=== PATIENT | female | born 1995 | race Two or more races ===

== ENCOUNTER 2023-02-14 13:26 | Outpatient (OUT) | payer OTHER, SELFPAY ==
--- NOTE | 2023-02-14 13:50 | US_ITS ---
[address] [address] Patient Name: RACQUEL GRAHAM MRN: [id number] date: 1995 Sex: F Assigned Patient Location: US Current Patient Location: Accession/Order Number: [id number] Exam Date: 02/14/2023 13:55 Report Date: 02/14/2023 14:41 At the request of: RORO YU Procedure: US pelvis transvaginal EXAMINATION: US pelvis transvaginal HISTORY: Polycystic Ovarian Syndrome E28.2, Abnormal Uterine Bleeding COMPARISON: No relevant comparison available. TECHNIQUE: Transabdominal and/or transvaginal sonographic examination was performed as indicated by examination type. FINDINGS: UTERUS: Normal size and appearance. Several nabothian cysts within the cervix. Uterus size: 7.4 x 2.7 x 3.8 cm ENDOMETRIUM: Normal homogeneous appearance. Endometrial thickness: 6 mm RIGHT OVARY: Contains numerous small similar size and peripherally located follicles. Duplex Doppler demonstrates normal waveform and flow; resistive index 0.6. Ovary size: 5.1 x 2.7 x 2.5 cm LEFT OVARY: Contains several small similar size and peripherally located follicles. Duplex Doppler demonstrates normal waveform and flow; resistive index 0.4. Ovary size: 2.8 x 2.7 x 2.8 cm CUL-DE-SAC: Unremarkable. No significant free fluid. BLADDER: Unremarkable. OTHER: None. US/US pelvis transvaginal IMPRESSION: 1. Normal appearance of uterus and endometrium. 2. Appearance of ovaries is consistent with polycystic ovarian syndrome. Electronically authenticated by: KLARISSA JUÁREZ Date: 02/14/2023 14:41
[2023-02-14 13:53] LABS: Basophils Percent Auto 0.4 % (0.2-2.0); Eosinophils Absolute Auto 0.1 10^3/uL (0.0-0.7); Eosinophils Percent Auto 1.5 % (0.9-7.0); Hematocrit 39.9 % (36.0-48.0); Hemoglobin 13.5 g/dL (12.0-16.0); Immature Granulocytes Abs Auto 0.02 10^3/uL (0.00-0.03); Immature Granulocytes Pct Auto 0.2 % (0.0-0.5); Lymphocytes Absolute Auto 2.7 10^3/uL (1.2-3.8); Lymphocytes Percent Auto 28.4 % (20.5-60.0); Mean Corpuscular HGB Conc 33.8 g/dL (29.9-35.2); Mean Corpuscular Hemoglobin 30.1 pg (26.7-34.0); Mean Corpuscular Volume 89.1 fL (81.0-99.0); Mean Platelet Volume 9.1 fL (9.5-13.5); Monocytes Absolute Auto 0.5 10^3/uL (0.3-0.8); Monocytes Percent Auto 5.8 % (1.7-12.0); Neutrophils Percent Auto 63.7 % (43.0-75.0); Platelet Count 319 10^3/uL (150-450); Red Blood Count 4.48 10^6/uL (4.20-5.40); Red Cell Distribution Width 12.9 % (11.0-15.0); White Blood Count 9.4 10^3/uL (4.0-11.0)
[2023-02-14 14:02] LABS: Estimated Average Glucose 105 mg/dL; Glycohemoglobin A1C 5.3 % (4.5-6.2)
[2023-02-14 14:26] LABS: HCG Quantitative <1 mIU/mL; Thyroid Stimulating Hormone 0.985 uIU/mL (0.358-3.740)
[2023-02-15 04:07] LABS: FSH 8.6 mIU/mL (.)
[2023-02-17 12:12] LABS: DHEA, Serum 303 ng/dL (31-701)
== END 2023-02-14 13:27 | disposition home or self-care (01) ==
PROVIDERS: Visit Provider Obstetrics & Gynecology
DX: E28.2 Polycystic ovarian syndrome (principal); N93.9 Abnormal uterine and vaginal bleeding, unspecified
CPT/HCPCS: 36415; 76830; 82626; 82627; 83001; 83002; 83036; 84439; 84443; 84702; 85025

== ENCOUNTER 2023-03-15 15:00 | Outpatient (OUT) | payer OTHER, SELFPAY ==
[2023-03-15 15:22] LABS: Basophils Percent Auto 0.4 % (0.2-2.0); Eosinophils Absolute Auto 0.2 10^3/uL (0.0-0.7); Eosinophils Percent Auto 1.4 % (0.9-7.0); Hematocrit 39.6 % (36.0-48.0); Immature Granulocytes Abs Auto 0.03 10^3/uL (0.00-0.03); Immature Granulocytes Pct Auto 0.3 % (0.0-0.5); Lymphocytes Absolute Auto 3.3 10^3/uL (1.2-3.8); Lymphocytes Percent Auto 32.1 % (20.5-60.0); Mean Corpuscular HGB Conc 32.8 g/dL (29.9-35.2); Mean Corpuscular Hemoglobin 29.5 pg (26.7-34.0); Mean Platelet Volume 9.1 fL (9.5-13.5); Monocytes Absolute Auto 0.6 10^3/uL (0.3-0.8); Monocytes Percent Auto 5.8 % (1.7-12.0); Neutrophils Absolute Auto 6.2 10^3/uL (1.4-6.5); Platelet Count 324 10^3/uL (150-450); Red Cell Distribution Width 12.6 % (11.0-15.0); White Blood Count 10.4 10^3/uL (4.0-11.0)
[2023-03-15 15:33] LABS: Estimated Average Glucose 108 mg/dL; Glycohemoglobin A1C 5.4 % (4.5-6.2)
[2023-03-15 15:53] LABS: Free T4 1.03 ng/dL (0.76-1.46)
[2023-03-15 15:57] LABS: HCG Quantitative <1 mIU/mL; Thyroid Stimulating Hormone 1.258 uIU/mL (0.358-3.740)
[2023-03-16 04:07] LABS: FSH 8.2 mIU/mL (.); Luteinizing Hormone(LH) 28.4 mIU/mL (.)
[2023-03-19 04:06] LABS: DHEA, Serum 340 ng/dL (31-701)
[2023-03-19 14:08] LABS: Anti-Mullerian Hormone (AMH) 16.1 ng/mL (.)
== END 2023-03-15 15:01 | disposition home or self-care (01) ==
LOC: LAB 15:02
PROVIDERS: Visit Provider Obstetrics & Gynecology
DX: E28.2 Polycystic ovarian syndrome (principal); N93.9 Abnormal uterine and vaginal bleeding, unspecified
CPT/HCPCS: 36415; 82397; 82626; 82627; 83001; 83002; 83036; 84439; 84443; 84702; 85025

== ENCOUNTER 2023-04-24 20:02 | Outpatient (REF) | payer OTHER, SELFPAY ==
[2023-04-27 18:07] LABS: Age Gdln ACOG Testing Note (.); IGP, rfx Aptima HPV ASCU Note (.)
== END 2023-04-24 20:03 | disposition home or self-care (01) ==
LOC: LAB 20:02
PROVIDERS: Visit Provider Obstetrics & Gynecology
DX: Z01.419 Encounter for gynecological examination (general) (routine) without abnormal findings (principal)
CPT/HCPCS: G0145

== ENCOUNTER 2023-05-21 16:07 | Outpatient (OUT) | payer SELFPAY ==
--- OUTSIDE RECORDS SUMMARY | 2023-05-21 16:15 | XMS_ITS | CCD ---
Author Name Unknown Address [address] [place] [address] Organization [facility] Care Team Providers Care Sales Trainee Name Role Phone PHYSICIAN, DEFAULT Unavailable Unavailable PHYSICIAN, DEFAULT Unavailable Unavailable SHENDGE, VITHAL Unavailable Unavailable SHENDGE, VITHAL Unavailable Unavailable SELF, REFERRED Unavailable Unavailable SELF, REFERRED Unavailable Unavailable Dave Red Primary Care Physician Medications Current Medications Medication Drug Class(es) Dates Sig (Normalized) Sig (Original) ibuprofen 600 mg oral tablet (2 sources) Nonsteroidal Anti-inflammatory Drug Start: 07-29-2021 take 1 tablet by mouth every six hours ibuprofen 600 mg Tab 600 mg = 1 tab(s), Oral, q6hr, # 10 tab(s), Refills(s) 0, Pharmacy: [facility], 164, cm, 07/20/21 5:00:00 EDT, Height/Length Dosing, 79.7, kg, 07/20/21 5:00:00 EDT, Weight Dosing Start Date: 07/29/21 Status: Ordered Problems Active Problems Problem Classification Problem Date Documented Date Episodic/Chronic Anxiety disorders (2 sources) Generalized anxiety disorder 09-20-2018 Chronic Cancer of cervix (1 source) Carcinoma in situ of uterine cervix; Translations: [Carcinoma in situ of cervix, unspecified] Onset: 07-29-2021 Episodic Mood disorders (2 sources) Major depressive disorder 09-20-2018 Chronic Other endocrine disorders (2 sources) Polycystic ovary Onset: 05-07-2016 06-11-2019 Chronic Other nutritional; endocrine; and metabolic disorders (2 sources) Obesity 12-03-2019 Chronic Residual codes; unclassified (1 source) Past history of procedure; Translations: [Other specified postprocedural states] Onset: 07-29-2021 Episodic Substance-related disorders (2 sources) Smoker 07-19-2021 Chronic Comment on above: Added secondary to d ocumentation in Social History. Unclassified (2 sources) Unknown / UNK(Unknown) Onset: 12-01-2016 Past or Other Problems Problem Classification Problem Date Documented Da te Episodic/Chronic Fracture of upper limb (4 sources) Displaced comminuted fracture of shaft of humerus, left arm, subsequent encounter for fracture with routine healing; Translations: [DISPL COMMNT FX SHAFT OF HUMER, L ARM, 7THD] Onset: 12-01-2016 Episodic Unclassified (2 sources) None (qualifier value) 06-13-2019 Results Test Name Value Interpretation Reference Range Facility Coding Summary.on 11-04-2021 Coding Summary. CD:[id number] G h0bWw+PGhlYWQ+FT9DZFP mT40ssGSopZ5TE4tIDJ8J FBDNPFUNHY6YYX0uxRU5Z LocN1WjlmOa AjpotHDoBC10PQb7ZFG1i XzuHPpsbO4ycMOgE2c6Ur HkPD37aM47WXwhKBAnUwZ 3LjZpbjsgbWFy W6udQpLynVFcKut+PHRhY mxlIHdpZHRoPScxMDAlJy JpuUrzGQ4mHd6vCOJrXHU vbGxhcHNlOiBj f4toRRFtODegUW9daOnyP 3BzpGW8UAEpg3i5Fn45iO I+RMWbNLO8kQufPCxnq25 4SsMwh0roBNB0 lAIyKWbsUGJ4W36pn5O1S SYjURGjWUN5tYA2xK5bmK lpnnusS6PpcQOqHyR0YAX 8nKUjkG5nfHpm jurjxA6nDqf+K08TBM7CR CAJRY3CLlr6S7ToHamvaH I+MD90UFLjBX12fYEnkKM qs1zhqWu6LpRu YPGeDVP0zTxeWRmqf4SdZ DDrT05muGUuz8N2ERVihU gqoSVaNcFlwAV8zB8rANz kvkojm9yslwco Dnkks9gllw84bU62W17kJ BtmWKNqXUA1JQAyAHQsjP sysn4bpR1gTd5+RBovg7b wz8bxnYv7NeXn NQEaqpHjrEolQKG4f1SpG r21J2HnrCqdy8GpAoa7lv 15wYUam8O7iAG1EXupRYH agE5fEDdaXjH0 CORqQnUfpF29fZErZYzqR w3pzQlqmUmbUF1nXACmsw suSLGzcV1iTSHyxTHymVn mOO1pKASathmg g456VcKcRSI6NVZlrEEgI 0ErtH6lMbLkDQVyPIUmD8 DusFImYZvdJ128URzrRiF 9QYNhxaYfZ8Jd HXWaeXobFlQ4p8E1Nz3Pw 7CgqcyuFLT8RBqiNIH8Jv NwBxOrQpH6F9EgFgt2LRF xuUymIH0vP6Uu TDUnfzusgseorAB6AHAsL SYcgK62uBAnCIswSq0zh0 C2d805GNZdUNOqjY06Lf7 udDogMTBwdCBU eR4zlbxse8jkkazoIxVbU TOsMCk2UZq4YWUubInhLt KdBDZ6UbM5LQT8dMXsxE5 clFotcwniqK9z Oyc+H78kqD3kCRW0WQF0u mvaUXLdvdUbMM44OM84D1 RyPjwvdGFibGU+PGRpdiB rzPpfXZ1wLpQt s2jen8JyGEhkE2SfVDNvD EunIys7LUJiYIC5qTB9xQ 3lWTDeGLwrp3M9sIC2T1N tnpUumy8ne1jb NEYtHYadG12nqZPec4G1R ONuyHM6PXXymSicKjCyyI 93Oyc+HDYoaWbqo6MzPtq yf2wrr5qctBs0 OvFdIXVyedAqvUmnSYW8n 0LtDb51B75wWTjgMIMuKK OtSPRuWRShvNfnqt3sxI3 wIi8+PGNvbCB3 pUX7vA1mEORnQlY9FOfpK 984DxKvuDLgGefiv7lsy5 xldLz0FvBvSHRvhfQzaDu xZUO6z1CjMr18 X57tDDphXZAhRHUfMRXoZ UHxkKwqip4yrN3zPr4+PC 1sp5vlag70qA72eLN+PHR aQPB0pBxxWWeb SBWsqJ2tZVfhHxM0GGQeY yVcpA62vYDsNPcdHc1vnR tkgAggTO9cZUCagezqr62 5ZoUzk5mlJEHl pZHtQBxvNFH7N55gi6O0X TDdSSMbTEV9cVY7qT7lgB lnbjogbGVmdDsgdmVydGl nZWzkIZwsE796 IHRvcDsnPlBhdGllbnQgT oQaIZy8V4AnIaa2EKWyjZ xwLY6dqHXeMXeaUo4eoSl ipKquBZ2iMMDo cdjhw754AbMct5vdUICfh UCdUWuxQKZ4D68xx5R5IM ImMLPzYKK5oGS6pI9hvKa nbjogbGVmdDsg ymXnlXkbSLwqZUeaR000I HRvcDsnPkJpcnRoIERhdG Y9GM43SV68gUOlo3O6sZT 4V9AlBLDcrnrn nxjfsFA7KDTiSRPbbX75C p5flGcuVn6bKNHyQQW3SD ResGOrP2VdrK2vMcSeHCM mQWSvS1DodCFr KFpsT266SOtpFlX8KUNzy iPnA6YvMVJifQiaOtN1z5 J3Oi6MJ6C7FN57CN93eGB gn4W0yJZ5Q9Zr LQOyiokghbszuPT8TCPaF XFjpR47Ai7blCuyUq4qXP RuSVT2USRxxLUvU6KprF2 yOiAjMDAwMDAw R6FmkHTnCBgxC967WEwgX mR0CTDljuSlO0YrDIKqtS inGnQ6o4K3Ba1TCFi8PJ5 3KE87mTOeq1C8 iTR6K7HgNKIgoacuivapj HI6MTEzLBSqfQ43Vy7bzY ysNe3lNECsUPK4EXQyvJA kZ5HbhH5bXgGb ROCgULReQ1ZltOYhVSacO 422AQpwUiI0DNFkazIlO4 UwQXQutEzzGuA8h7H8Ym4 FMSPgTW29RFC9 yKI3AY38DH38H9EtJqyoh GFibGU+PHRhYmxlIHdpZH RoPScxMDAlJyBzdHlsZT0 tPh3vJBDqHUTx oMinlYFhEzCpe0rgXBHfO SfxPR9pyZdmV0RcbXF9TR Elg9i7Pp79I34bI5JlyQK +CZXyyUI5mON2 mR9aKfLvIyI6SPjwR009B fPzlETeYfqvy5sfs9ewiM s8ApM3DPUwmkTlgJcaPDJ 2s0EpOl43G11q IHdpZHRoPSIxNSUiIHZhb Bqygw4daQ4iGu5+PGNvbC H8cFQ4pO7cAjUkWvC5IQn aI969ImLdhXVt Bppip6wpz2ihqRl6IxTsG IJuoqQhtRwzGZV5q0DhFe 01K5ZjmCthw8OfIew1bz4 2bYSaq3F4vUG7 N7TgXWGxvuozcIDnlJkwD Z5pDZDzjxewXNGwoC2iTB FqZ9e8FfUkJvU3FZpcV4P zeaC2NMIslCYb AHocCVP2L10gk2B8QDVuW EXnIBE0pDJ8eY8hdWmbqq ogbGVmdDsgdmVydGljYWw uUJvqF841AJWt vLbvXAFsxP4gHVKyaDLbi NtwRR0wKAWftvsqDifWZY 0HFjnkKBKRDF7qJCzcyKH +BSLpHUE8zGnz PBkfPTVvuY9mJNWnD1v4R vJiTgS5IRsvC6VjJTUnup sbKh21kG6xKkNpRkE4KIm zS1FvmsM3OVPq eSWcWKmvQHR6F75iy0V7X ZTlKUSyETA3kTI5cT2bvX lnbjogbGVmdDsgdmVydGl vKBdvZHtrI713 TCNkjXtpVkM7LvOeGfX5H VA4M6FnIxz1HTVowOqdYF 9ieNIdUZjjPp4sbNgiiIn uAK0uRLMacgly WRHnbW8jSIGwmHArdMxuQ Z8jMSEhkweew066LdDiDM B1NAQecKPdC9XjhD0tLcZ mUCWsHBKfP9Xw gZQsZUqyA460DRoqBwU5D UGurkZsO3PsUEIcwXjlJu O9p9S8Bn6tKhHUNUFcvgr vdGQ+PHRkIHN0 eCvzUNlzEGPlaP3iGZKhM 6m5CxPpPrS3UGbwW9SsOW PffzbzZt18nE0mZpNbOeB 6XCkjL3IjgwO8 UIKibPPhTIjzMVT0N53os 1Y6ZKIzNIFoILE4cHZ9tN 1hbGlnbjogbGVmdDsgdmV ydGljYWwtYWxp L672SGUacKnuZtEyeZUuJ TwvdGQ+OFVpEMM0nQomMG hiJLNubG1eRHIiO2x4RrZ vUtR9EIwnC5Es KWHyvdopEf14kX3dNeBkY oO1KPntR6FoowD7ZZZqaL DdOJbqGHJ1B25bl2J6HMZ vMASyKEJ5vNT4 fC9bdUdrsextzKUjcOqyn tMqfVtbWCgpFEwsH841EM LkgLceQk37fBTngXdpchY 9D3UaFrmumJV+ NC75GKIlQT04lALcfRFuh 6xtkVf0AgVoXVDoWVL5pU gtBHcgd0EoSFLcW34eaJZ ig3K8NRJqtJng aQHfUlCheXH5gW4hBRkil lcpa8qxlxkoXtasm5jntc 01hV09F96bZUiqACYdOAP zMCUiIHZhbGln nf0cbF4tNq1+FAMphCK0q JJ3yV8eEgQtTuC7KJxfC2 76NzBddKTxEwzfh4orp4n sjIg3JaFzMGEr ioYfrOjpVVP2o0LmOs79Y 29sIHdpZHRoPSIyMCUiIH KapAroof3asH1qVd3+PC9 fx4zlhm24qB85 dHI+XYSuMAQ5zIhxHUrjT HKdsS3pNTriPiD2IBVjGf MzuO83zFMuNFgrCs9iyKj krAvqLL4dRQRq ubwry610LtWjj4bqHARrp BSiIOzbVFS8H89ga0G2UA IzTMItAIP7yIZ2fQ1zbLl nbjogbGVmdDsg mjJrdYliDAyoLCfsQ726J OYmzApzSzOxjCWgD7foho ZNVG5gAoaycLL+PHRkIHN 0eWxlPSdwYWRk gF8wDFMtM5o5JxQvIvU6G WqtR4YsirK9EGYrqIUmVC AypVLNfF3ddkgya0wtukx gIzAwMDAwMDt0 PXo4UNAsxFjpCuZbITH6U vY0XFF6tCNceP1blCickh rpeI2fFvz+RklOOjwvdGQ +KIEoAMG6uKvc EJmePTQkoM2kLPXlA1t0B jUtFpC5LHsxG6AvbeD3GE CybVMpFTPleZVYjY6pusf lm0mwcftvTkLg LXAnVVs0AMy2PEHllDmpM wIzZPV7YvE6SEK3dYLpkF 8hzFvaxsntmM2fMmr+TVJ OOjwvdGQ+PHRk RBU7tKiqLEgtFICdsY3oX KZkC9j4RyLeAxJ5CHsbW0 HsnyY9TBGklWCrQCHtyLR NiI1libmag1ru ctqrTqUhBMQbMCx1TLt6C QPyfXuqGuBjCHI7MkJ8TV H3jJNidO8yvKdhtzihqH0 wOyc+NEV8FMH7 EP14TQ51T6TsOsrjhSWxa +PHRhYmxlIHdpZHRoPS ulQKSeWzTsePdpYZ3kKl5 yZGVyLWNvbGxh cHNl (more content not included)... Normal [facility] Coding Summary.on 09-29-2021 Coding Summary. CD:[id number]:8262336P G h0bWw+PGhlYWQ+OI4INJI cU71zeXVorE5XB1eOMI2D NCIQRWAGBX0CLX4yhFR1F MnoP2IiafSb ZgoqpJMaXZ33XGg3OLJ1w GweASvkoC8peRHsZ8f1Jm NuVT17pZ01MQskDBMsZqE 3LjZpbjsgbWFy P1hzTcRmvFVlMpz+PHRhY mxlIHdpZHRoPScxMDAlJy ZyxBhgQT1rLy9iTDDeNKX vbGxhcHNlOiBj f1izCCTsIAyuYQ6eiZpcT 9EwvSF8OHHuw1n9Vz36qL I+FARcAUU5lBxwNWlpo07 7SaOkh2xrXZF8 eVLiDOxfWKM1B24ov7E1P VAqBJRuKIH7sDO6tN9uxX tqthpjI3PmqQUpBjU3GKK 2iTWybI7gbNdk iqnohO5iWad+X96KSA0VN UTNSL3KFxy1M9BnNijicJ I+UP51KANoJG92wRAovGP aj8whgOw2IwPl NJIzVJA4oTaiRKouq9FzA LBcQ59kdKRoj2T9CQLstU qgqNPjFyIsrRL5sT5lBKk diikuo1ixtgyl Cfxst2hvgt17zY50C54mA JvbCQBwUEL6AQNaCCWfvG dbdu9ybS2aFa0+ELtyc2g kz7ujwXb7OrHi MNWuibOqeFnzMPO5a3TeP b27Y6NucTzkf8LqLgy1wp 14xGYdz0X0kUL7SIyoMJI myY8pBBtlTiQ7 XVGdClSfgX14hLAvTAazD k9ceKckcNklXF4vECJkkg tfFOAmpE8tAZFurKHpvEu xEQ4yOIUmabck k177GjPyTFP7WEBbtXMlZ 1LpnX3qMgOwSERzZGLhI5 UfkQJnTTrmE334CPisKoX 2EBDqwtAjF4Zs WUMmcQvvCzK5x3C9Yi7Ut 4CewdejDZN2LWfyUUI6Fi M7KwZwBiG4P6IsVxb8DDL nrQiuBB9mL8Tu ITEwmizzqiixnTX4USBiD SIyoS87fSBwEYnzOh8pq2 K5q379EADdXOEgsG87Dw4 udDogMTBwdCBU hV6fuxrdx9odtebvOxDeS ICoLWw9UNp8HXQaeKyyOb ZaRQC8SbU8SKJ6vCBdzW8 afWobqnlosE4x Oyc+R68ywD2fMUD7RSP8t jidHLFzuoOjPI72AT90N3 RyPjwvdGFibGU+PGRpdiB qpUesXS0bEvDo p9axy0NzPMzzZ7JwPUAkS IhcWjn8SWOoJLG9gIM7eV 6eUMNgQIljk7M4eYQ0D7Y xmvObkv4hr4vt MKQuJIhbM15qaGKqv4P7S XSxwKV2FAVbeLhxFsUifD 93Oyc+GKVtqIhoa4YmJkx gv4wod4pafDx3 XnYoZZSglpPagYtaVVP6h 3UpMg75S24wYPohYIPgWP LySQRlSDKqiWoksf9xpO3 wIi8+PGNvbCB3 nCI0eX4rKONoGoF0JVaeV 843TfUeaIJaZmrrw1mox2 oucTx7OaOoEGNzloXhpMo pEMU9r6QhTk54 B44qOJkdZSBjMAOeCVUjX WDwuXfwur5ysO0nFj8+PC 3mp2enor88mW31mHF+PHR wCMM9eMtaYCga UEHwxS3bKSizQtK9YTTiO tGeyL51mILoNHweIg5ktX uweUuxGT3hPQBfhuhcv36 8GqKbk1xuYCPn zGUoGSgfDCJ8U43wb6F5R XGgRDZcRRW4gZG8jS2wpQ lnbjogbGVmdDsgdmVydGl dQTqhBGdmB798 IHRvcDsnPlBhdGllbnQgT jOlWIh1Z7MuBcq9LCYpkF slUX1ibGJzLZsvCj1xeGa caIeaNX3vTCZn xhyuo206QmHnb9xrVIXob DWgDLsfWDC3C54am1G1KA EaPUMdHBG6kUD4iC6wxTp nbjogbGVmdDsg naTprLmhWFktSGbwK853V HRvcDsnPkJpcnRoIERhdG Z7AM98HA85lFErv1Q3vMS 1X8VkFZWnbqor wbpowVA4AXVqEADvfR51E v7cbHzcBw8uJIKnCTU0TG IahAWvQ8UykQ9iTcBwLJV tLIPnQ9ZedDOi VOpqX070QQlhEfY0DPUxi qPyZ7CgUMWkwRdrTbD8y9 U1Yf3OG9U9OH60DO41oOD rh4O7eRA0V4Dr QKAsdzrvpxwowKC9UBIeG ISojH74Ab6ipRlbAk0mOJ CxKVT2JNTmhZLrV3HnnG5 yOiAjMDAwMDAw O1SmmLEjJIscP058FJteD pP7RBVskmIeZ5IiCCAaaH rqUoC5y4D6Mo7EQRu5MV6 9IQ86hNKtr9Q8 fZI6D8WlQJOlqmrcjagrx IA7LYLoMVRlbH92Ul1jpQ nqXw2fSTVwTFU8VRDauNE vM9VkzN9sYuNb FVEwFOPhK6GpxCIgLRodX 127RNurFxK1PPCwcbMtS4 OeSKGslGahXzL1h9L8Di8 TCSVlAB27AMM0 vJE2KG70JO34T9PfDkgsc GFibGU+PHRhYmxlIHdpZH RoPScxMDAlJyBzdHlsZT0 vJu4wMIIqLMBq dWyotCYiTgXbs3haKHQvO TheOP6ehFriI0GmwEK6DZ Xmm4j0Yc56G41bC9MpvNT +YDUvoJO3zPA3 fN2vIjNvGlS2FWjrI239L tAnvZBtLwofi3vlr4htfU w1OuV2XXVdxbQqsCxsSRY 8p1SvGw73L85e IHdpZHRoPSIxNSUiIHZhb Piwci2srV7qCj0+PGNvbC O5cXK0zV4pAlSrOuZ0XIm vO310ReYilAQb Npnkt9kst2ejsPo1QtGlS BTdoxJoaSdtXQL8z5NpSd 40Y8VezPyao1ZfGps1qe1 1fXYtd5X5oKS0 G9EkWVMrdtulyOJcsDssD A1hOCSkopbvZSArkW4yDA VbE5r9RoLzOnY7SErtC4A qjuM8JMRtaNKy YJpcAWP2G98qt2E2ILSrP KYlYEJ6hXU7fT8fkRxanl ogbGVmdDsgdmVydGljYWw vOSvuL195OWEa eCanLXZvdV2nHYTdkKMqb DpnKC8mJWTrkxagGstUJZ 0PNhthBUWJGO2xACxeiEB +JPKjPUC4wBhm TGryMHAcnP1rVFYyY6n9V rSmRsI6ZFguH7ZmLVZnyr klAf93kB5qTaZpXkT3COo qA1IgjlX4SHOh vZNvCKtcCWY4I56xp2P8A BEeAJWwCJZ0jHM7zD5zeB lnbjogbGVmdDsgdmVydGl pAFovSXqjD769 PDVmnKknZyZ8GlLzNqJ3P PA7F7KaOxh9FQKsqIbvSG 9puYMwYYgmVy3vpTfulEt kTJ7oOHQqzetj IUQsgO7gTPAbuJExgQznD T1vDTLqerudl866OxVyZB M7BRZesCSpG1WbbV1iQqS cJBXsLQIuC4En uYKcPIqpK189JOvxEmV5S OFjeuDkQ8FcMLFuyNmyVg S7f1T0Xe7tQmZPPSSgfvc vdGQ+PHRkIHN0 zTluJBddVLHqyN3oVDMcW 9z2NeNtVjJ1ZAfvR4RhID YelsfmDz41oJ4kThIkSnX 3EEkzX3OyjwP7 USPykAHqUZrhMRF0D93vv 8U3BUOeNBGxKJV9aJU9eP 1hbGlnbjogbGVmdDsgdmV ydGljYWwtYWxp R238BMRgsUqhUbOwsKWjA TwvdGQ+FRYwDBK6pDjkYN bsCLCibS9zBVIxF0a6PhE zToB7IXukQ2Ft IDIviukcHb12dN4iQjFkF kP1EMdcE8SdduH3JNLwxY PqRPexZQZ3U71rp2Q8XMS hYNGyOVJ4mMN3 bA5gqZrabiiceBAncFtyc rOqnWrwCXuxLLrjY737FL GwwPhdUgyuXhBEqw1rNO8 mZjwvdGQ+PC90 km99V9ItQhiwHtg1XTHbL RM3qIQ1dR1dSZSmWPhqj1 P0pVM6F2WahgTung4ya4m sNULqFClyG86f iGSug0P0XNLwaPY5RMZqc GksQpLdmG53Oqf+PGNvbG uxi8GwYpmmk0kgl4mkdSy 9IjMwJSIgdmFs tFhjZWQ3r9YaFg97R99nX HdpZHRoPSIzMCUiIHZhbG oedf7ljG1vPf3+PGNvbCB 2dCF9rL6yCnAq LxX5SHsqS359KdIsuPGoH ygll1ssk2bigLu1NxHkDO LvycEujTrdZHX6p1ThGt3 4A3QfoSxsj3Tv Fds3aw36vUPps7E4hCF8J 3BhZGRpbmctbGVmdDogMC 3lZHHarqqlNSKdeT8cUPZ fO5k6ZlXmGrR7 DDhkF7IbykZ2FMBnzKEeN YHajAIZqP8xwixvu7ycqa sqEtAfWQVvUFy5SVb2KYB saWduOiBsZWZ0 XlU7SUB8lVLawS7xdSdik noatF5kSsz+FSg4p0dczW JyHH1iiOC4YB05FH26kGZ kf9J1pKJ0I4Oa MGOzktlxyqmoxUV5YHXlA MVcwX54Tt5gvBktUb5tFC ZcEHW0JZZerAHkK0MxeO3 yOiAjMDAwMDAw M5GeaAJpHXefQ487OYqeW oH5UMRpcaPsI8KhBTAnxD btOkZ6y6C5Aa8LWB84XA7 5JM61iXKqb9U1 qQZ2X8MhMBKgehglizrql BJ8XPSaSJXnjZ14Eb0irO haAd7yBBYsNSD3MFZmuQB zI8VvlE6wYfIb NVThVEIvY0MtrYXrWGpxL 441FEuoHiW6LSNrivHuQ6 WqSYHikAohFvV9l6L1Lk5 OPh49ZN91YG36 qXWho4U5pIY6J8CvPRUfl lalspqtrEP4NGBxOMLzvS 08Rg3qxKamPi5qQDNlRUX 5AMBvvRLcP4Ft rE5uNqLkEIOjGQQqF9Nxq AOsNGdbX612MXbpKuN1HK BokoGdR7AdSPCbnZymGmN 4o8T8Zo7BVTei cri4N2SbBetcyGN+PC90Y JMzBP13rYOmqNQrp3mjvN b1RvSrDJOsHNC7xHyeFKp dk3AkYKOaO19x bGFw (more content not included)... Normal [facility] Vaginitis/Vaginosis, DNA Pro beon 09-25-2021 Alissa sp rRNA Probe Ql (Vag fld) Positive Abnormal Negative [facility] Comment on above: Performed By: #### 3 [id number] ####[facility] [id number] [place] [address] G. vaginalis rRNA Probe Ql (Genital specimen) Negative Invalid Interpretation Code Negative [facility] Comment on above: Performed By: #### 3 [id number] ####[facility] [address] [place] [address] T. vaginalis rRNA Probe Ql (Genital specimen) Negative Invalid Interpretation Code Negative [facility] Comment on above: Result Comment: Perf ormed at: [facility] [address] [place], [place] [id number] PhD Cee Barahona Performed By: #### 3 [id number] ####[facility] [address] [facility] [place] [address] Physician Orderon 09-21-2021 Physician Order [id number]# 1.00CD:127 Normal [facility] Physician Orderon 08-10-2021 Physician Order [id number]# 1.00CD:127 Normal [facility] Coding Summary.on 08-03-2021 Coding Summary. CD:[id number] G h0bWw+PGhlYWQ+VA2SESL aY11mnBZwyR8IX0cYJC8J AFLPXEJZME1CER0szFD3Y SfgR0CfyuEe YyilwFDtCD66UTw0FJG2f EtcNTvpgL2uaXNcB0k6En JyUX22jM90YByxCGUxNrI 3LjZpbjsgbWFy V7vcKdMdkVLpLlp+PHRhY mxlIHdpZHRoPScxMDAlJy MdqHqpKM2yRv0xKFCeKYY vbGxhcHNlOiBj o0xcWQSaOFpvZP5vdOldM 9VpcNL7CUTmb0i0Ty47zD I+MMFgZVN1xLchQOasb93 3LlCvq6vsIUE3 lKPgAUtyCBE1X37pp1W8Y KVoQTLxQSJ6gEL6mN9yzO kvuaylS7WxxUCqXyS6OGL 4eHWfaY3rfLgd kzepuC9oVse+M39VJJ8WI PVZTO3NZox7S0FhIqdiqX I+PS48QQDkZQ59kJTgwFO vi9hbfZk5ZvGu XRThCPL3bJipNHiiv8WiL TNvI42taSLyl5C6TXYydW uyvBFbZfYqoLZ9fQ7sZDf ofjzbr1fgzpzc Bjdyr0rkps38vV86Q95tW RitILZtXOA0ADYbLMDrrS mjcr6kkM5tIf5+QQwnd2w uv2euxFm7EaJy HITcatGuuUefUHJ0q4GaF m42D5QrmCozw6FyObt0ek 09zSGwg6Y7fRP8VItzZDH pnE9xAGuqEiR2 GQYzBwPpoA25dSXjOYnyE y7pzUskeMjyPN3xPKRpfu vvBEWrvI1oHAGclOPlwNf lNU5eNEYnrddy f858QnUsAIO6UDGmxOHmE 6SzdD8eCnQjCFOcYWAsN6 VlrEJrITorI025QQujKlL 9RFTmhgArZ3Ag PTSmdVnkOcJ9r0S8Xu2Rf 9BoksczAOD6BRlhBHJlQt EhNeMgLiR4R6IqEkj6BOB uiJzqUZ2xS2Fu ONZmoblguwxpgGF0VLKyR JLgzT52eAEuWUiwSj2hd6 H0x073RJJdZEMtdA44Ey0 udDogMTBwdCBU tB5ubwbxp4wkwajpInNzS FYqRJz4HXr4JQPbdRklWe NnOZF3QnV8ZEQ1dOIojO9 txBkaepjpyE8a Oyc+K07kwH8aCFE7VGF8q ttpPJYvdaYcIO01VA59Q9 RyPjwvdGFibGU+PGRpdiB qnPlmKK3dWoAi f6jov0YvWSxgD8KaMOXwJ DnvVty4QYXvIHM7yZM5cD 8rHHKvRTkxj5V3hQK0E9H mvvCapd2vo2vl IZVeMEdjC89hgLFpz6R4V BPmiTF3AILupBorIfPztZ 93Oyc+SUPoyPjiv1BsHxa mb9bva5abqPm5 SdIlBSFztyAtjKrrEFU6c 5LyKd11U02vBUzrUGWqHR FlPYHtHOBsvYifbe6tsF5 wIi8+PGNvbCB3 hYT3mI6oCHMgBtA7CQrzA 840OiHmsEDdOljbs6tfu0 segAc1GyAhDYHtsgSzvQe iPTT2r3CuEz35 R56bOBnwYBJkSNKtDLKoB TWlcXybqr5wuN0yCk9+PC 5il0xwof83qH00aWK+PHR iLQB1mTxfZRpq UQOozQ0jSKleLoI9MHOiS jQubV94gPMySLbjZl7zoL hwyEkcBS6rMGNjajvqq17 7VvPzb7ovQTFb gZPwPTpzRCO3J49wx7I1X NYfXXKyBBD8mLS3yY7ggK lnbjogbGVmdDsgdmVydGl oMQhuVZepV078 IHRvcDsnPlBhdGllbnQgT kEaXXn4A6NeCcz4IVSmbS kgUT5qdXHeVSxjBr7dvWj xuLkkED2yDYMv tegwx418QfKvw7atMPXzp DYuPDvfLEW0V24hl4M9XD ExEOMwBSV3oYR2vJ0gvWa nbjogbGVmdDsg bjBolNlcDCqdSUtaE092Q HRvcDsnPkJpcnRoIERhdG F0GQ29CR99eLGhz7C5dHM 1K2YwQFVfrati hstrrJZ0ZQJbWMKudL93R a0gkAhrAl0cOYGwTHD8IJ TowNMbE7EjcK7tOcNwDNT tCOEcJ2KwjYWv OLfmJ339RTzlQsI8CKUyx iKoK4AmLKQoeYnlCsS1p4 E2Xm7QR7K5FE77TR12yZF sb7C6aWC6P1Hk GERhnujzlowoaRK2KCBvT OJlxQ85Yp2hvGzmHb8gJT XwTWC8TSPhyQMlG9FmpU1 yOiAjMDAwMDAw E8XqxSQyZYuxI148MGwuW uR0SUAptqStM8DxOCNcpF oyPqV7o2F4Kf7WMTc7EF5 9QH52pIVti1B2 aYT3U2PgQIGektlyguion OU6EBKaGDXvrZ03Ox8ltJ loWq6jJTPaSOA3HNHqyLM oH2JqoF7sNkGm FGXlQRHyF7DzvPHxQRgaO 472EEflVsZ8LCSncoRcV7 ReMNLepCasImB3i4U5Ay0 UKLPzQY25RSZ4 zIB1CK96CR39W7LnZrpdm GFibGU+PHRhYmxlIHdpZH RoPScxMDAlJyBzdHlsZT0 aWo7rYGEfPPRk uFawwLFuEpEri3spDPTaR KqsWG3nsWfyZ9JhhDX1SX Pjq1s8Wj80C81aQ5TmwHI +VWUqjZX5zHD0 hH1dIeIbIqH8PPuuH200K xJhpHZoMghlc5hzv1nwwL r3NxV2QDFyedEddIilHRK 4a3TfJa55H24c IHdpZHRoPSIxNSUiIHZhb Hxbpi8eiC3iMb6+PGNvbC M9hGP6oX8jGxBpBeR0IYt jM522ZiTekFPr Dtitz8klb2armFo1FiJwJ HAlrdTrkOepRFF3a0EjKc 53C6FhuAeii5RpEak0yj2 3gPHha3A6qMC2 K1DhLXTrskdjrWOoyMptR N8gBIDjjshgZCXehU7cTA OdP0d7CoNmNgE3FWkaX2Q sdyT9MKMgaSAw TTxmKFT8N17sx6Z6XBFwH LMtLSJ7iDT5hS4fsWvuyq ogbGVmdDsgdmVydGljYWw yNKfbU413ADBk eVnjIWNqsK7pFAQfuZHsg EwwHV7wPCTfbnpiTafRMQ 0JDvoeNALGKD9hCVpmdYO +KVMoZSW1bCzy JRgoDZInqB1aVGIuV9f8Z vZbYcZ6TIpyX6UpMUGwxh beYy69uN9oLyBfZeE6AHp uT3DlwbV8WYHk vEFsZJtxVLT0K47ee9K1X GMeRKUrLBZ3iIQ5hV3gwA lnbjogbGVmdDsgdmVydGl ySGofEVaoR193 AMYrbIqdVlS6BmQhWlN5Y JE0S8UtQqt0VQRksByxOF 6vpAMoAXfgHu3hxRwrmKb aRE6qKBRexpuz ERVcbV7xFOMghGOohNdpT O5rMBPaxbycj646GdEyEE T2RRCvyNTpF5HfcE0lGfL wUTAgAEDcI0Xu tIVyBGtwC806CAwfRtS1U VNkqoLpR6IdJKRmxKajBc Q3n2P7Me1sLkRRKKIkjgl vdGQ+PHRkIHN0 bYvkOPvtURJywM3sSPQtQ 8m3DeRnBeP4ODljD9QcKU FuojsmEw14hP4yOrZdPsQ 5PXdhQ8WsycX2 SQEozWQqBCqlLWM3R61rn 7E2TYIrFEOiJZB9uME5aE 1hbGlnbjogbGVmdDsgdmV ydGljYWwtYWxp Q022QAVzrUcvIvWtpWYyZ TwvdGQ+CVHgKRO9eFckTM bcWBSheG9qHIByY1h6BeM bRhK0VPpoX5Qp MERctqfvKo64aN2nSkYfH dH9BHmsQ5VjeuF3TIPkcJ QaOVddJDN4M23fq2N7NKK xGYSwIHO5iWB5 zL0otXijvakarHSezNjqo cTlsLvbARzvRVmqZ242IX RvcDsnPkFtYnVsYXRvcnk fV9SoBHDPOMar Q0JpJ2XnpWqfyKO+PC90c n94O6ChEpmoOeo1CDKiIP K8gOC4nE4mNVVoVJiln2T 5hBB8T0IseiVb ij3ut0joUZNbKIdkI33ht BNaz9G9XVSogOA0GEHuyH agEmEazJ72Gmk+PGNvbGd cx4ExRcghf2oq t7jcgSd7GyVnEGIwyaLvf IwwPSZ5h2UxXq04H14rZW dpZHRoPSIzMCUiIHZhbGl ngr0ljZ1bJx6+ URBgrIO9sUU2pL2bXeAfR gJ2JGukA952KtAvvIEiXw hiq0kmb1qboWv5FeIiGGK gdmFsaWduPSJ0 m6QpTj62N3OzgQwnp2CsY dh0xz69bFWyb1I6sHW9P7 BhZGRpbmctbGVmdDogMC4 yMDBpbjtwYWRk nX2nDVSyH4w9JbIcYwE0E ZzmD4JjqiG1HPLtoCLhNP LgbHACcP2nkntkf4yowcp gIzAwMDAwMDt0 ZKc5OMAgxKszRcTeJUY1H nG7PRR8dSGtjD3lkVmdpv oxvO1tLwe+VGo7m5rccDT uCN1jvZS1OV88 KH29vLLni0X8hDH0L2VsT EWbbtypqpvgxHF5ZVMqUF GvaA68Dc8reReeYv1fVXU eCUT9DUXaaHCw T2BzyC1lZxEhNLZwLRPtW 6IdfIDvKYcjK978NMvfBq I6JWXkyrUyR8MmXLJneQt nDvJ9p3P7Qg0E QB87TK79LM06qDGci6L1t MH9R5ApRGRcspqcxpidpU E2WNKgJTGtvM81Hm6ehHb cVp9fJYVlNRP9 PQXahBLnW1CumZ9mCjUrK WXcFPAgI0QvqTTyFYhjB1 85XPpkQgA5XBJgruSrD0K sLWFsaWduOiB0 o8T3Hn6EAy74EH53YB49b WIdn3T0xMK7H9HuHGWzpq bvgfksxZS4JVSbPABxdD5 2Tf8sxHgmRe0h MDBdUER3NJGtjNYeF9Ssy F6xLcEkWYBeDVTzL3KwdL OhJOndM341EDzcDeU3VCX tlhIoX5PtCBGr eCllVoX8o6I0Rz1OVOsnl xy0M6YpFzfbdVK+PC90YW MxIT43zRRukXCsd1qtnUv 3TvCgXBQmGPO6 eWxl (more content not included)... [facility] IntraOperative Documentson 0 08-03-2021 IntraOperative Documents [id number]# 1.00CD:127 [facility] Consent for Anesthesiaon Consent for Anesthesia [id number]# 1.00CD:127 [facility] Discharge Instructionson Discharge Instructions [id number]# 1.00CD:127 [facility] IntraOperative Documentson 0 08-01-2021 IntraOperative Documents [id number]# 1.00CD:127 [facility] IntraOperative Documents [id number]# 1.00CD:127 [facility] Main OR Intraoperative Recor don 08-01-2021 Main OR Intraoperative Record IntraOp Document Type FT Summary Primary Physician: Mark Moffett MD Finalized Date/Time: 08/01/21 13:31:49 Pt. Name: RACQUEL VAZQUEZ Louie Felton./Sex: 1995 Female Med Rec #: [id number] Physician: Mark Moffett MD Financial #: [id number] Pt. Type: A Room/Bed: [place] [address] Admit/Disch: 07/29/21 14:15:55 - 07/29/21 18:50:00 Institution: Case Times FT Entry 1 Patient Times In Room 07/29/21 16:37:00 Out Room 07/29/21 17:16:00 Procedure Times Start 07/29/21 16:56:00 Stop 07/29/21 17:09:00 Anesthesia Times Start 07/29/21 16:37:00 Stop 07/29/21 17:16:00 Last Modified By: Abdifatah RN, Apolinar Ruby 07/29/21 17:16:06 General Comments: 08/01/21 Chart opened to review and send charges [facility] CSFA Case Attendance FT Entry 1 Entry 2 Entry 3 Case Attendee Kamran FAMILY PRACTICE DOCTOR, Gurdeep Moffett MD, Mark Cage CST, Stephanie Palma Role Performed FAMILY PRACTICE DOCTOR Surgeon - Primary Scrub - Primary Time In 07/29/21 16:37:00 07/29/21 16:37:00 07/29/21 16:37:00 Time Out 07/29/21 17:16:00 07/29/21 17:16:00 07/29/21 16:50:00 Procedure CERVICAL CONE/LEEP CERVICAL CONE/LEEP CERVICAL CONE/LEEP BIOPSY(.) BIOPSY(.) BIOPSY(.) Comments dr sigala supervising Last Modified By: Abdifatah RN, Apolinar Gardiner RN, Apolinar Gardiner RN, Apolinar Ruby 07/29/21 17:22:36 07/29/21 17:22:36 07/29/21 17:24:52 Entry 4 Entry 5 Case Attendee Abdifatah RN, Apolinar West CST, Venkatesh Villavicencio Role Performed Stevedoring Superintendent - Primary Scrub - Relief Time In 07/29/21 16:37:00 07/29/21 16:50:00 Time Out 07/29/21 17:16:00 07/29/21 17:16:00 Procedure CERVICAL CONE/LEEP CERVICAL CONE/LEEP BIOPSY(.) BIOPSY(.) Comments Last Modified By: Abdifatah BENTON, Apolinar Gardiner RN, Apolinar Ruby 07/29/21 17:22:36 07/29/21 17:22:36 Perioperative Protocols FT Pre-Care Text: Implements protective measures prior to operative or invasive procedure, confirms identity before the operative or invasive procedure, verifies operative procedure, surgical site, and laterality Entry 1 Procedure(s) CERVICAL CONE/LEEP Patient Identity Birthday, ID Band BIOPSY(.) Verified (select at Check, Patient least 2): Participation Consents / H and P Anesthesia Consent, Operative Site N/A Verified HandP, Surgery/Procedure Marking Verified Consent Surgical Site Yes Laterality Verified n/a Verified Procedure Verified Yes Correct Patient Yes Position Verified Availability Equipment, Medication Prep Dry n/a Verified (If Applicable) PreOp Antibiotic No Time Out Gurdeep Andrew CRNA, Given Participants Zuhair BRANDT, Mark Rosen, Niles VAUGHN, Stephanie Palma, Abdifatah BENTON, Apolinar Ruby, Brett VAUGHN, Venkatesh Villavicencio Time Out Complete 07/29/21 16:53:00 Outcomes Met? Yes Last Modified By: Abdifatah BENTON, Apolinar Ruby 07/29/21 16:58:56 Post-Care Text: The patient is free from signs and symptoms of injury caused by extraneous objects Allergy Information FT Pre-Care Text: Verifies allergies Entry 1 Allergies Reviewed? Yes Allergies Reviewed Self/Patient With Outcomes Met? Yes Last Modified By: Tamara Red RN 07/29/21 15:31:37 Post-Care Text: The patient received appropriate medication(s) safely administered during the perioperative period Surgical Procedures FT Entry 1 Procedure Description Procedure CERVICAL CONE/LEEP Modifiers . BIOPSY Surgeon Description LEAP CONE EXCISION AND ENDO CERVICAL CURETTAGE Primary Procedure Yes Primary Surgeon Mark Moffett MD Start 07/29/21 16:56:00 Stop 07/29/21 17:09:00 Anesthesia Type General Surgical Service Obstetric Gynecology Wound Class 2 - Clean-Contaminated Last Modified By: Apolinar Gardiner RN 07/29/21 17:22:48 General Case Data FT Pre-Care Text: Classifies surgical wound, implements aseptic technique, initiates traffic control Entry 1 Case Information OR OR 6 FT Case Level Level 2 Wound Class 2 - Clean-Contaminated Specialty Obstetric Gynecology ASA Class 2 Preop Diagnosis CERVICAL DYSPLASIA Postop Same As Preop Yes Postop Diagnosis CERVICAL DYSPLASIA Outcomes Met? Yes Last Modified By: Apolinar Gardiner RN 07/29/21 16:59:20 Post-Care Text: The patient is free from signs and symptoms of infection Skin Assessment (Pre Procedure) FT Pre-Care Text: Implements protective measures to prevent skin/ tissue injury due to thermal or mechanical sources Evaluates for signs and symptoms of physical injury to skin and tissue Entry 1 Skin Integrity Intact, Reserve, Warm, and Skin Abnormality No Dry Outcomes Met? Yes Last Modified By: Apolinar Gardiner RN 07/29/21 16:59:30 Post-Care Text: The patient is free from signs and symptoms of injury caused by extraneous objects Patient Positioning FT Pre-Care Text: Identifies physical alterations that require additional precautions for procedure-specific positioning, verifies presence of prosthetics or corrective devices, positions the patient, evaluates the patient for signs and symptoms of injury as a result of positioning Entry 1 P (more content not included)... [facility] Preoperative Documentson Preoperative Documents [id number]# 1.00CD:127 [facility] Operative Reporton Operative Report SURGERY DATE: 07/29/2021 PREOPERATIVE DIAGNOSIS: Severe cervical dysplasia POSTOPERATIVE DIAGNOSIS: Severe cervical dysplasia OPERATION: Loop Electrosurgical Excision Procedure Cone Excision of the cervix and endocervix curettage ANESTHESIA: General ANESTHESIOLOGIST: Leonel Sigala M.D. PREOPERATIVE HISTORY: The patient is a 25-year-old white female who presented to my office for colposcopy. She underwent colposcopic directed biopsy which revealed moderate to severe dysplasia with a negative endocervical curettage. After discussion of alternatives of care the patient elected to proceed with Loop Electrosurgical Excision Procedure Cone, excision of the cervix, and endocervical curettage. We discussed the risks involved including bleeding, infection, injury to internal organs, possible creation of incompetent cervix which was explained to the patient at length. All these things she understood, accepted, appropriately signed consent forms, and made ready for the Operative Suite. PROCEDURE: The patient taken to the Operative Suite and after general anesthesia was administered the patient draped and prepped in the usual fashion for vaginal surgery. A single toothed tenaculum was placed on the anterior lip of the cervix and the cervix was sutured with stay sutures at 3 and 9 o'clock. Lugol's solution was used to stain the cervix and the Lugol's negative area was removed using the Loop Electrosurgical Excision Procedure technique with the specimen being marked at 12 with a stitch and sent to Pathology. Endocervical curettings were also sent to Pathology. Hemostasis was assured. The cone bed was fulgurated and the Monsel's solution was then used for further hemostasis. Hemostasis was assured. Estimated blood loss was minimal. Fluid replacement adequate. There were no complications. Sponge and needle counts were correct and the patient was transferred to the Recovery Room in stable condition. Mark Moffett M.D. rj Dictated: 07/29/2021 [id number] Transcribed: 07/30/2021 [facility] Comment on above: Result Comment: Elec tronically Signed By: Zuhair BRANDT, Mark Rosen\.br\Date and Time Signed: 07/31/21 10:47 EDT Progress Note-Physicianon Progress Note-Physician Patient: RACQUEL VAZQUEZ Age: 25 years Sex: Female : 1995 Associated Diagnoses: None Author: Leonel Sigala MD Postoperative Information Post Operative Note: Post Anesthesia Care Unit. Anesthetic utilized: General. Health Status Allergies: Allergic Reactions (All) No Known Allergies No Known Medication Allergies Problem list: All Problems Major depressive disorder / SNOMED CT 0418390330 / Confirmed Never Smoker / SNOMED CT 026414587 / Confirmed Added secondary to documentation in Social History. Obesity / SNOMED CT 2744544882 / Confirmed Generalized anxiety disorder / SNOMED CT 64306695 / Confirmed PCO (polycystic ovaries) / SNOMED CT 5607114565 / Confirmed Resolved: None / SNOMED CT 003810524 Physical Examination Intake and Output adequate hydration Pain assessment: Self-reports no pain. General: Alert and oriented, No acute distress. HENT: Oral mucosa is moist, dentition unchanged. Respiratory: Respirations: Are within normal limits. Pattern: Regular. Cardiovascular: Normal rate. Neurologic: Alert, Oriented. Review / Management Lines and Tubes: Peripheral catheter. ECG interpretation: Within normal limits. Condition: Stable. Assessment Anesthetic outcome No anesthetic complications noted. Adequate pain relief. No Complaint of nausea and vomiting. Plan Transfer/ Discharge: Patient can be discharged from PACU when criteria met, Patient can be discharged from anesthesia care. Condition stable. [facility] Comment on above: Result Comment: Elec tronically Signed By: Igor BRANDT, Leonel\.br\Date and Time Signed: 07/30/21 08:41 EDT Progress Note-Physician Patient: RACQUEL VAZQUEZ Age: 25 years Sex: Female : 1995 Associated Diagnoses: None Author: Leonel Sigala MD Preoperative Information Anesthesia history: Patient History: No personal or Family history of problems with anesthesia. Re-eval prior to induction: Inital eval reviewed: No significant interval change. Review of Systems Constitutional: Negative. Cardiovascular: Cardiovascular risk stratafacation reviewed, 1 FOS without difficulty, No chest pain. Respiratory: No SOB. Hematology/Lymphatics : Negative. Gastrointestinal: Negative. Musculoskeletal: Negative. Neurologic: Negative. Health Status Allergies: Allergic Reactions (Selected) No Known Allergies No Known Medication Allergies Current medications: (Selected) Inpatient Medications Ordered Lactated Ringers IV Janeth 1000 mL 1,000 mL: 1,000 mL, IV, 150 mL/hr, Routine, Start date 07/29/21 13:00:00 EDT, 6.7 hour(s), Total volume (mL): 1,000, 79.7 kg, 1.91, m2 Problem list: All Problems Major depressive disorder / SNOMED CT 8692229296 / Confirmed Never Smoker / SNOMED CT 943307991 / Confirmed Added secondary to documentation in Social History. Obesity / SNOMED CT 4253269891 / Confirmed Generalized anxiety disorder / SNOMED CT 10993183 / Confirmed PCO (polycystic ovaries) / SNOMED CT 7814305608 / Confirmed Resolved: None / SNOMED CT 709170707 Histories Past Medical History: Resolved None ([id number]): Resolved. Procedure history: left humerus ORIF on 09/15/2016 at 20 Years. appendectomy. Social History Social & Psychosocial Habits Alcohol 09/20/2018 Type: Liquor, Wine Frequency: 1-2 times per week Average drinks per episode in last year: 4 Maximum drinks per episode in last year: 1.00 Started at age: 16 Years Previous treatment: None Has alcohol use interfered with work or home life? No Do you ever drink more than intended? No Has anyone been hurt or at risk by your drinking? No Employment/School 09/20/2018 Status: Employed Description: Works at [employer] Previous employment/school: Student Activity level: Occasional physical work Highest education: Some college Hazardous equipment operation: No Exercise 09/20/2018 Duration (average number of minutes): 4 Times per week: 5-6 times/week Self assessment: Fair condition Exercise type: Walking Home/Environment 09/20/2018 Lives with: Lives with boyfriend. Living situation: Home/Independent Alcohol abuse in household: No Substance abuse in household: No Smoker in household: No Injuries/Abuse/Neglec t in household: No Feels unsafe at home: Yes Nutrition/Health 09/20/2018 Diet restrictions: None Wants to lose weight: Yes Sleeping concerns: No Feels highly stressed: Yes Sexual 09/20/2018 What is your current gender identity? (Check all that apply) Identifies as female Sexually active: Yes First active at age: 14 Years Current partners: 1 Number of lifetime partners: 15 Uses condoms: Yes History of sexual abuse: No Substance Abuse 09/20/2018 Previous treatment: None IV drug use: No Has drug use interfered with your work or home life? No Ready to change: No Concerns about substance abuse in household: No Tobacco 06/11/2019 Tobacco Use: Never (less than 100 in l Smokeless tobacco use: Never 12/03/2019 Tobacco Use: Never (less than 100 in l Smokeless tobacco use: Never 12/14/2020 Tobacco Use: Never (less than 100 in l Smokeless tobacco use: Never . Physical Examination Pain assessment: Self-reports no pain. Airway: Mallampati classification: II (soft palate, fauces, uvula visible). Distance: Adequate. Mouth: Adequate opening. Neck: Full range of motion. Respiratory: Respirations are non-labored. Cardiovascular: Regular rhythm. Neurologic: Alert, Oriented. Review / Management Results review: No qualifying data available . Plan [place] [employer]esthesi[employer] (ASA) physical status classification: Class II. Anesthetic Preoperative Plan Anesthesia: General. , discussed the benefits of obstaing from tobacco products. Anesthetic plan, risks, benefits, and alternatives discussed with the patient and/or family. Patient verbalized understanding. Pt agrees with anesthetic plan and accepts all risks including but not limited to; Bleeding, infection(including covid-19), nerve injury, dental injury, eye injury, headache, low blood pressure, serious problems with the heart and lungs, allergic reactions, and .. [facility] Comment on above: Result Comment: Elec tronically Signed By: Igor BRANDT, Leonel\.br\Date and Time Signed: 07/30/21 08:36 EDT Consent for Treatmenton 07-06 Consent for Treatment [id number] .00CD:127 [facility] Inpatient Patient Summaryon 07-29-2021 Inpatient Patient Summary [address] [address] [facility] Clinical Discharge Instructions PERSON INFORMATION Name: RACQUEL VAZQUEZ PHYSICIANS Admitting Physician: Mark Moffett MD Attending Physician: Mark Moffett MD PCP: Dave Red MD Discharge Diagnosis: Cervical intraepithelial neoplasia grade III with severe dysplasia; S/P cone biopsy of cervix Comment: PATIENT EDUCATION INFORMATION Instructions: YARN TESTER - Post D&C, Hysteroscopy, LEEP or Essure/Laparoscopy (CUSTOM); Post Op Patient Instructions - FT (CUSTOM) Medication Leaflets: Follow up: With: Address: When: Mark Moffett [address] [place] [address] Business (1) Within 2 weeks Comments: Call for any problems. MEDICATION LIST New Medications [facility], [address] [facility] [place], [place] [id number], [phone] ibuprofen (ibuprofen 600 mg Tab) 1 Tablets By Mouth every 6 hours. Refills: 0. Comment: [facility] Main OR PACU I Recordon 07-06 Main OR PACU I Record PACU Phase I Document Type FT Summary Primary Physician: Mark Moffett MD Finalized Date/Time: 07/29/21 18:05:46 Pt. Name: RACQUEL VAZQUEZ Louie Felton./Sex: 1995 Female Med Rec #: [id number] Physician: Mark Moffett MD Financial #: [id number] Pt. Type: A Room/Bed: [place] [address] Admit/Disch: 07/29/21 14:15:55 - Institution: Case Times PACU I FT Pre-Care Text: Identifies barriers to communication and implements measures to provide psychological support Develops individualized plan of care, and ensures continuity of care Maintains patient's dignity and privacy, and maintains patient confidentiality Identifies and reports philosophical, cultural, and spiritual beliefs and values Identifies individual values and wishes concerning care Implements aseptic technique, and administers prescribed antibiotic therapy and immunizing agents as ordered Evaluates postoperative tissue perfusion Implements thermoregulation measures, and monitors body temperature Evaluates postoperative respiratory status Evaluates postoperative cardiac status Evaluates postoperative neurological status Assesses pain control, collaborated in initiating patient-controlled analgesia and implements alternative methods of pain control Verifies allergies, administers prescribed medications and solutions, evaluates response to medications Entry 1 In PACU I 07/29/21 17:19:00 Discharge from PACU 07/29/21 17:49:00 I Outcomes Met? Yes Last Modified By: Dona Farnsworth RN 07/29/21 18:05:25 Post-Care Text: The patient demonstrates knowledge of the expected response to the operative or invasive procedure The patient's care is consistent with the individualized perioperative plan of care The patient's right to privacy is maintained The patient's value system, lifestyle, ethnicity, and culture are considered, respected, and incorporated into the perioperative plan of care The patient participates in decisions affecting his or her perioperative plan of care The patient is free from signs and symptoms of infection The patient has wound/tissue perfusion consistent with or improved from baseline levels established preoperatively The patient is at or returning to normothermia at the conclusion of the immediate postoperative period The patient's respiratory function is consistent with or improved from baseline levels established preoperatively The patient's cardiovascular status is consistent with or improved from baseline levels established preoperatively The patient's cardiovascular status is consistent with or improved from baseline levels established preoperatively The patient demonstrates and/or reports adequate pain control throughout the perioperative period The patient received appropriate medication(s), safely administered during the perioperative period Acuity Level PACU I FT Entry 1 Start Time 07/29/21 17:19:00 Stop Time 07/29/21 17:49:00 Acuity Level Acuity Level I Last Modified By: Dona Farnsworth RN 07/29/21 18:05:41 Finalized By: Dona Farnsworth RN Document Signatures Signed By: Dona Farnsworth RN 07/29/21 18:05 [facility] Main OR PACU II Recordon Main OR PACU II Record PACU Phase II Document Type FT Summary Primary Physician: Mark Moffett MD Finalized Date/Time: 07/29/21 19:09:27 Pt. Name: TAYLOR RACQUEL Palma D.O.B./Sex: 1995 Female Med Rec #: [id number] Physician: Mark Moffett MD Financial #: [id number] Pt. Type: A Room/Bed: [place] [address] Admit/Disch: 07/29/21 14:15:55 - Institution: Case Times PACU II FT Pre-Care Text: Identifies barriers to communication and implements measures to provide psychological support and determines knowledge level Develops individualized plan of care, and ensures continuity of care Maintains patient's dignity and privacy, and maintains patient confidentiality Identifies and reports philosophical, cultural, and spiritual beliefs and values Identifies individual values and wishes concerning care administers prescribed antibiotic therapy and immunizing agents as ordered, Evaluates postoperative tissue perfusion Implements thermoregulation measures, and monitors body temperature Evaluates postoperative respiratory status Evaluates postoperative cardiac status Evaluates postoperative neurological status Assesses pain control, collaborated in initiating patient-controlled analgesia and implements alternative methods of pain control Verifies allergies, administers prescribed medications and solutions, evaluates response to medications Entry 1 In PACU II 07/29/21 17:50:00 Discharge from PACU 07/29/21 18:50:00 II Outcomes Met? Yes Last Modified By: Tiffany Reynolds RN 07/29/21 19:09:14 Post-Care Text: The patient demonstrates knowledge of the expected response to the operative or invasive procedure The patient's care is consistent with the individualized perioperative plan of care The patient's right to privacy is maintained The patient's value system, lifestyle, ethnicity, and culture are considered, respected, and incorporated into the perioperative plan of care The patient participates in decisions affecting his or her perioperative plan of care. The patient is free from signs and symptoms of infection The patient has wound/tissue perfusion consistent with or improved from baseline levels established preoperatively The patient is at or returning to normothermia at the conclusion of the immediate postoperative period The patient's respiratory function is consistent with or improved from baseline levels established preoperatively The patient's cardiovascular status is consistent with or improved from baseline levels established preoperatively The patient's neurological status is consistent with or improved from baseline levels established preoperatively The patient demonstrates and/or reports adequate pain control throughout the perioperative period The patient received appropriate medication(s), safely administered during the perioperative period Finalized By: Tiffany Reynolds RN Document Signatures Signed By: Tiffany Reynolds RN 07/29/21 19:09 [facility] Main OR Preoperative Recordo n 07-29-2021 Main OR Preoperative Record PreOp Document Type FT Summary Primary Physician: Mark Moffett MD Finalized Date/Time: 07/29/21 17:28:47 Pt. Name: RACQUEL VAZQUEZ/Sex: 1995 Female Med Rec #: [id number] Physician: Mark Moffett MD Financial #: [id number] Pt. Type: A Room/Bed: [place] [address] Admit/Disch: 07/29/21 14:15:55 - Institution: Case Times PreOp FT Pre-Care Text: Verifies consent for planned procedure, identifies individual values and wishes concerning care, includes family members in perioperative teaching Entry 1 Patient Times. In Pre Surgery 07/29/21 14:20:00 Out Pre Surgery 07/29/21 16:35:00 Outcomes Met? Yes Last Modified By: Apolinar Gardiner RN 07/29/21 17:28:46 Post-Care Text: The patient participates in decisions affecting his or her perioperative plan of care Finalized By: Apolinar Gardiner RN Document Signatures Signed By: Apolinar Gardiner RN 07/29/21 17:28 [facility] Monitor Recordon 07-29-2021 Monitor Record [id number]# 1.00CD:127 [facility] Monitor Record [id number]# 1.00CD:127 [facility] Outpatient Surgery Discharge Instructionon 07-29-2021 Outpatient Surgery Discharge Instruction [address] [address] Patient Discharge Instructions PERSON INFORMATION Name: EDDY VAZQUEZN Louie Date of : 1995 Current Date: 07/29/2021 17:20:53 PHYSICIANS Admitting Physician: Mark Moffett MD Discharge Diagnosis: Cervical intraepithelial neoplasia grade III with severe dysplasia; S/P cone biopsy of cervix RACQUEL VAZQUEZ has been given the following list of follow-up instructions, prescriptions, and patient education materials: PATIENT FOLLOW-UP INFORMATION Diet: Regular Discharge Activity: Expect mild pain, Expect minimal amount of drainage and/or bleeding, Activity as tolerated Call Your Doctor For: Persistent or heavy bleeding, Temperature above 101.5 degrees, Persistent vomiting Additional Instructions: nothing in vagina x 10 days IF UNABLE TO CONTACT YOUR PHYSICIAN AND YOU FEEL IT IS AN EMERGENCY, GO TO THE NEAREST EMERGENCY ROOM OR CALL 911 ITAYLOR DEVIN M, have received the attached patient education materials/instruction s and have verbalized understanding: May we do a follow up call? Yes No I was present when discharge instructions were given Patient Signature Date Clinican/Nurse Signature Date Follow up: With: Address: When: Mark Moffett [address] [place] [address], [place] [address], [place], [place] [id number] Business (1) Within 2 weeks Comments: Call for any problems. Pharmacy Information: You may receive a survey from [employer] asking you to rate your care experience. Your feedback is important and will help us understand what we do well and how we can improve the quality of care we provide to you, your loved ones and our community. It?s an honor to serve you. Thank you for choosing [facility] HERE ARE THE MEDICATION CHANGES THAT OCCURRED DURING YOUR HOSPITAL STAY New Medications [facility], [address] [place], [place] [id number], [phone] ibuprofen (ibuprofen 600 mg Tab) 1 Tablets By Mouth every 6 hours. Refills: 0. PATIENT EDUCATION INFORMATION Instructions: Instructions post D & C, hysteroscopy, LEEP or Essure/laparoscopy You can resume all normal activities within 24 hours following surgery. For 24 hours: no driving, making any important decisions, drinking alcohol ? and a responsible adult should stay with you today. Please refrain from intercourse, douches, and tampons for the next 10 days/ You can expect some vaginal spotting, cramps, or light bleeding for a week and up to ten days after surgery. This is normal. If you are soaking a pad an hour or more frequently ? you need to call your doctor. Your first period may not be normal, but most women resume their normal cycles within a month or two. It is helpful for your doctor if you keep a written record of your bleeding following surgery. When abnormal bleeding persists for 2-3 cycles, please bring the record to your doctor. Return to the office for post-operative check, and to go over any biopsy results at your scheduled appointment; usually two weeks following surgery. If you are uncertain if an appointment has been made, please call the office. CALL THE DOCTOR if you have severe pain, heavy bleeding, or a temperature of 100.5 or higher. Resume your regular home medication schedule as soon as you are eating a regular diet. You can either take the prescribed medications as directed for pain, or you can take over the counter pain medication such as Motrin, as indicated on the package for pain or cramps. PLEASE CALL FOR ANY PROBLEMS Medication Leaflets: [facility] Patient Education - Texton 0 07-29-2021 Patient Education - Text Instructions post D & C, hysteroscopy, LEEP or Essure/laparoscopy You can resume all normal activities within 24 hours following surgery. For 24 hours: no driving, making any important decisions, drinking alcohol ? and a responsible adult should stay with you today. Please refrain from intercourse, douches, and tampons for the next 10 days/ You can expect some vaginal spotting, cramps, or light bleeding for a week and up to ten days after surgery. This is normal. If you are soaking a pad an hour or more frequently ? you need to call your doctor. Your first period may not be normal, but most women resume their normal cycles within a month or two. It is helpful for your doctor if you keep a written record of your bleeding following surgery. When abnormal bleeding persists for 2-3 cycles, please bring the record to your doctor. Return to the office for post-operative check, and to go over any biopsy results at your scheduled appointment; usually two weeks following surgery. If you are uncertain if an appointment has been made, please call the office. CALL THE DOCTOR if you have severe pain, heavy bleeding, or a temperature of 100.5 or higher. Resume your regular home medication schedule as soon as you are eating a regular diet. You can either take the prescribed medications as directed for pain, or you can take over the counter pain medication such as Motrin, as indicated on the package for pain or cramps. PLEASE CALL FOR ANY PROBLEMS [facility] BUNon 07-19-2021 Urea nitrogen [Mass/Vol] 12 mg/dL Normal 5-21 [facility] Comment on above: Performed By: #### 2 [id number], [id number], [id number], [id number], [id number], [id number] ####[facility] [address] [place] [address] CBC w/Indiceson 07-19-2021 Erythrocyte distribution width (RBC) [Ratio] 13.0 % Normal 10.9-14.2 [facility] Comment on above: Performed By: #### 2 [id number], [id number], [id number], [id number], [id number], [id number] #### [facility] [address] [place] [address] Hematocrit (Bld) [Volume fraction] 38.8 % Normal 34.0-46.0 [facility] Comment on above: Performed By: #### 2 [id number], [id number], [id number], [id number], [id number], [id number] #### [facility] [address] [place] [address] Hemoglobin (Bld) [Mass/Vol] 13.3 g/dL Normal 12.0-16.0 [facility] Comment on above: Performed By: #### 2 126415, [id number], [id number], [id number], [id number], [id number] #### [facility] [address] [place] [address] MCH (RBC) [Entitic mass] 30.3 pg Normal 27.0-34.0 [facility] Comment on above: Performed By: #### 2 761617, [id number], [id number], [id number], [id number], [id number] #### [facility] [address] [place] [address] MCHC (RBC) [Mass/Vol] 34.4 g/dL Normal 31.4-36.0 [facility] Comment on above: Performed By: #### 2 040445, [id number], [id number], 7771131, [id number], [id number] #### [facility] [address] [place] [address] MCV (RBC) [Entitic vol] 88.2 fL Normal 80.0-100.0 [facility] Comment on above: Performed By: #### 2 035122, [id number], [id number], [id number], [id number], [id number] #### [facility] [address] [place] [id number] Platelet mean volume (Bld) [Entitic vol] 7.6 fL Normal 6.4-10.8 [facility] Comment on above: Performed By: #### 2 112189, [id number], 3806095, 7537710, 94666930, 3171591 #### [facility] [address] [place] [address] Platelets (Bld) [#/Vol] 325.0 E9/L Normal 150.0-500.0 [facility] Comment on above: Performed By: #### 2 837234, 21681313, 5558375, 3105354, 14872574, 7766025 #### [facility] [address] [place], [place] [address] RBC (Bld) [#/Vol] 4.4 E12/L Normal 4.3-5.9 [facility] Comment on above: Performed By: #### 2 376069, 73299035, 0845215, 9039436, 84036906, 0575088 #### [facility] [address] [place] [address] WBC corrected for nucl RBC Auto (Bld) [#/Vol] 8.1 E9/L Normal 4.0-11.0 [facility] Comment on above: Performed By: #### 2 914019, 43723438, 2562777, 3552002, 75526895, 2257150 #### [facility] [address] [place] [address] Consent for Treatmenton 07-05 Consent for Treatment [id number]#1 .00CD:127 Normal [facility] Creatinineon 07-19-2021 Creatinine [Mass/Vol] 0.8 mg/dL Normal 0.5-1.3 [facility] Comment on above: Performed By: #### 2 206241, 61362061, 4434907, 1288422, 46662624, 5164536 ####[facility] [address] [place] [address] Lyteson 07-19-2021 Anion gap [Moles/Vol] 11 mmol/L Normal 6-16 [facility] Comment on above: Performed By: #### 2 318051, 74983988, 1548673, 9684057, 78828673, 3886031 ####[facility] [address] [place] [address] Chloride [Moles/Vol] 103 mmol/L Normal 101-111 [facility] Comment on above: Performed By: #### 2 665217, 76902133, 6233719, 8477259, 06546593, 5935961 ####[facility] [address] [place] [address] CO2 [Moles/Vol] 26 mmol/L Normal 21-31 [facility] Comment on above: Performed By: #### 2 469775, 55710784, 0562987, 9145808, 05478637, 2673071 ####[facility] [address] [place] [address] Potassium [Moles/Vol] 4.3 mmol/L Normal 3.5-5.3 [facility] Comment on above: Performed By: #### 2 723988, 81622551, 7365096, 6777233, 08290783, 7684569 ####[facility] [address] [place] [address] Sodium [Moles/Vol] 136 mmol/L Normal 135-145 [facility] Comment on above: Performed By: #### 2 715984, 97148848, 1279798, 2891867, 88085045, 0220044 ####[facility] [address] [facility] [place] [address] PT & PTTon 07-19-2021 aPTT Coag (PPP) [Time] 33.7 second(s) Normal 25.1-36.5 [facility] Comment on above: Result Comment: Hepa rin therapeutic range (represented by Anti-Factor Xa activity of 0.2 - 0.4 U/mL) corresponds to PTT of 56.6 - 109.0 sec. Performed By: #### 2 605545, 51829951, 1180915, 1307795, 07856366, 9107774 #### [facility] [address] [place] [address] INR Coag (PPP) [Relative time] 1.1 {INR} Invalid Interpretation Code [facility] Comment on above: Result Comment: INR results are specifically intended to assess patients stabilized on long-term Anticoagulation therapy suggested INR?s ?Less Intensive Anticoagulation? 2.0 ? 3.0 Conventional Range 3.0 ? 4.5 Performed By: #### 2 001443, 82792302, 7941123, 2143551, 62751398, 8096653 #### [facility] [address] [place] [address] PT Coag (PPP) [Time] 12.8 second(s) Normal 10.2-12.9 [facility] Comment on above: Performed By: #### 2 691739, 33973283, 1738642, 2854756, 66021792, 9245435 #### [facility] [address] [place] [address] U BetaHcg Qualon 07-19-2021 HCG.beta subunit (U) [Moles/Vol] Negative Normal [facility] Comment on above: Performed By: #### 2 [id number] ####[facility] [address] [place] [address] eGFRon 07-19-2021 GFR/1.73 sq M.predicted among blacks MDRD (S/P/Bld) [Vol rate/Area] mL/min/{1.73_m2} Normal >=59 [facility] Comment on above: Order Comment: Order added by Discern Expert. Result Comment: eGFR is race adjusted. AA=. Performed By: #### 2 437399, 12593482, 4116268, 8422152, 34606022, 3719079 ####[facility] [address] [place] [address] GFR/1.73 sq M.predicted among non-blacks MDRD (S/P/Bld) [Vol rate/Area] mL/min/{1.73_m2} Normal >=59 [facility] Comment on above: Order Comment: Order added by Discern Expert. Result Comment: Telemarketing Sales Representative lizbeth kidney disease could be indicated at eGFR's of less than 60 mL/min/1.73m2. Kidney failure is indicated at less than 15 mL/min/1.73m2. Performed By: #### 2 625141, 93390460, 2137944, 9307642, 80284404, 7568177 ####[facility] [address] [place] [address] COVID-19 (MC)on 07-18-2021 SARS-CoV-2 (COVID-19) RNA AYE+probe Ql (Resp) Not detected Normal Not Detected [facility] Comment on above: Result Comment: This test result should be correlated with clinical presentations and medical history by a healthcare provider to determine its clinical significance. This assay was performed by a reverse transcriptase real-time polymerase chain reaction (rt PCR) method on the [facility] system. This test has been authorized only for the detection of nucleic acid from SARS-CoV-2, not for any other viruses or pathogens. This test has not been FDA cleared or approved. This test has been authorized by FDA under an Emergency Use Authorization (EUA). This test is only authorized for the duration of time the declaration on that circumstances exist justifying the authorization emergency use of in vitro diagnostic tests for detection and/or diagnosis of COVID-19 infection under section 564 (b) (1) of the Act, 21 U.S.C. 360 bbb-3 (b) (1), unless authorization is terminated or revoked sooner. Performed By: #### 2 [id number] #### [facility] [address] [place] [address] SARS-CoV-2 (COVID-19) RNA AYE+probe Ql (Unsp spec) Pass Normal Pass [facility] Comment on above: Performed By: #### 2 [id number] #### [facility] [address] [place] [address] Specimen source Nom (Unsp spec) Nasal Normal [facility] Comment on above: Performed By: #### 2 [id number] #### [facility] [address] [place] [address] Consent for Treatmenton 07-05 Consent for Treatment [id number] #1.00CD:127 Normal [facility] COVID-19 (MC)on 07-15-2021 ADMITTED TO INTENSIVE CARE UNIT FOR CONDITION OF INTEREST:FIND:PT: Unknown Normal [facility] Comment on above: Performed By: #### 2 [id number] #### [facility] [address] [place] [address] EMPLOYED IN A HEALTHCARE SETTING:FIND:PT: Unknown Normal [facility] Comment on above: Performed By: #### 2 [id number] #### [facility] [address] [place] [address] FIRST TEST FOR CONDITION OF INTEREST:FIND:PT: Unknown Normal [facility] Comment on above: Performed By: #### 2 [id number] #### [facility] [address] [place] [address] HAS SYMPTOMS RELATED TO CONDITION OF INTEREST:FIND:PT: Unknown Normal [facility] Comment on above: Performed By: #### 2 [id number] #### [facility] [address] [place] [address] HOSPITALIZED FOR CONDITION OF INTEREST:FIND:PT: Unknown Normal [facility] Comment on above: Performed By: #### 2 [id number] #### [facility] [address] [place] [address] STATUS:FIND:PT: Unknown Normal [facility] Comment on above: Performed By: #### 2 [id number] #### [facility] [address] [place] [id number] RESIDES IN A [facility] CARE SETTING:FIND:PT: Unknown Normal [facility] Comment on above: Performed By: #### 2 [id number] #### [facility] [address] [place] [address] Consent for Procedure/Surger yon 07-14-2021 Consent for Procedure/Surgery [id number]# 1.00CD:127 Normal [facility] Physician Orderon 07-14-2021 Physician Order [id number]# 1.00CD:127 Normal [facility] Physician Orderon 07-13-2021 Physician Order [id number]#1 .00CD:127 Normal [facility] Coding Summary.on 07-12-2021 Coding Summary. CD:[id number]:[id number] G h0bWw+PGhlYWQ+CK5ZCIG qW05alPRmaU8ZX3pNGR6F POYVPWBAOP1UIM2orTX5D QdmB3JtfnUc WxtbuCXfJN37LOe4THY5v QegNQlxvZ7ilRBzY9t2Az GnSV84eU88ZGsuXKViLeB 3LjZpbjsgbWFy O7ymKbVifVKgFvv+PHRhY mxlIHdpZHRoPScxMDAlJy QziAqkKD2zUx6hTZXzVYA vbGxhcHNlOiBj o9hgLTDlTFaaWB9edMqzI 9DkjHE9YEMns4w8Wy32vG I+TOKlQLR9dAwgCZvwy80 4QmCqf6cqLMH8 uDUwSKlkLWX5Q54xv2C7C WTeJMExKJV7sUM7fI3btE yqgpdcL5NxaXNqIrS2ZBX 3fMUquZ2chXkz edvzeC8dNut+Y19CYN5NH RJOHB2AEit4K4ExIyevdE I+AK51JKScOF29wOKvsJT yz4llzBt3HlMy ANRuMUC0cVvgFPucs4UpU KOrE59pdRZll6T4DGHqsE azbGIeJfNvfKN4dT1hALs jobrtq4ddagot Wjkcu7owey21lK33D47nS KbqHWOnCFE1HNIsJZVucT fhue1ufW1yEr5+TLbct3t uc1hqdDy5HoXe EMGutdBhzUelFHF1m2WrU v08N7RicRqsz8PbUdd3oh 05dDWkj4N6nVN2HPkxIHY zqU6xGEljQpZ6 SETrWsMewX58hOVwQPxsW h1pcRlacPxgKB3aMIJrqe zlQKWtjO2zETLosSEpvAy tOC5pZZNwimvj l875VoExIAN6HBMqqVBpG 6MljP8aYnSjFIZxAGXiR9 PvhXUzWTsmU596JCdzPoH 9RWCtheXyB0Yd NIVjrDtyCrH3x5C3Fo1Sg 3VcgngzGZB4NSrpJBRhHd H1SsYuZkU8W2CfKlz5TIH ohEzpQZ2oJ3Nr HJCaqvjnawjmjVD1VGGbG OZenG53uIKoKGpiKl3nz2 V5a607CMMgFDMkhP45Tg8 udDogMTBwdCBU pP0hsmjhk2dgdehkNoNqF SEbFCt3IGw3DOOhjNvkUb ZdEOJ6BjI4RMP2qJBxqF2 xaKcadwrfsH5l Oyc+O56ozQ8uXCU7WFW5o hylZRMfrmXeFK19JX06S9 RyPjwvdGFibGU+PGRpdiB woKahLD6mUsOs i7omz5BvSOywJ6ZoLXViM SdcVap5BVDqQGQ1bNQ7bS 0oKKCmJAncx0A7eAP2B0S jwmJrwy0id5yx YDYgPSkzX96rzZZib0P3T XMtaNX9IXIpzXkxXjLmrT 93Oyc+ZKNapJgpg6RlMec cn3ski1cbzCk0 PiVxVKZzswKofKcrRUY7m 7HsUn14P07bXRmcBNUtCP OnDPDgCWKptVymaf7fbP2 wIi8+PGNvbCB3 pWE2jM8fIPPhDlN0BJrrA 157BmXmfEMvRkvgh1mfd6 avrPv6XiNnLLOqdxLbnLt pJAJ7g2XpYx95 B75dQRmaHFZiEWPnVRIdP MUbiThmsk1zcR0aVn9+PC 2nv0mxoi32oM85vPX+PHR tPLQ5cUxkDWrn PHZijM7dNMfzUoK9JRGjZ lUjyF44pTNeKLidEq3wjP mmuAnyOD4oGRHedzqly54 5XpWgk1xbCEJo eYTxTOlmLJJ0H99na6W9S BDjZUKuGAS0qUM5vO4hdY lnbjogbGVmdDsgdmVydGl lBMqfLTkbU580 IHRvcDsnPlBhdGllbnQgT vCfHAf6D8GaHdc7TSMqsO rhJH5whUYhDWmuHl4wlXd fdQcyUV4wHDTt mbkta882OlGmq2xjHHFiw ORjPKdqBEX5K58am4B0TZ IxLIPoRZA9nLX9qK1dvQl nbjogbGVmdDsg yiQzjLdaUNfpPAvdT337B HRvcDsnPkJpcnRoIERhdG H4DQ04IH78aPGnu6Q0lAR 2U6QyJHJmsqie ewsygTP6CVXdZJFicP80L b2euQftMr4zSMEjNQS2UM XbgEYgI7XfcL7cAyBpGSM vNHYjR4WpgYMy FClzV685KBbaXkK4KTXsg bOtW9PrDOBehDrdXnF9p9 R4Th9QF3I2JV56BF51bPR qd0L7oWN5G2Gx NNTcqmcyyyddyUV7UDNjN HNplC40Yv2pyPlvTg7zOB YxPSW7QAMasDEpF0PgrB1 yOiAjMDAwMDAw G9YqoANzBDuxG419OAeaW zA3ZSCjupXmU2GtQNBijX uxDfV5h3X1Vx3BTFp3LD4 6ZV32vYYdy3W6 gFN7R6RbGPSguxagesohh YH5HZYoDAUpeL16Il3dwA bhSo6bHPMjVEL1ZXFjpAW fJ3AgmI0dWoDb KDLuYTXmY7TmqFAaVNvlR 348WOqaRrA2PVQaqeRsC5 EiXASqrWgwWlC4q5U5Pn0 DTPBnHX53WIC6 iIC1NO37SH37C6DfJripn GFibGU+PHRhYmxlIHdpZH RoPScxMDAlJyBzdHlsZT0 aEm3gTCUjZXGv qWbaeYYcRjFbc9wfROHgI UslQQ3xmRrwE3UhuKJ5YN Byy0p9Qe12D01uV7UniWC +THXcfWD2fKS0 sV2kGyXaSsL4FNpaR504K vHibAUgJlqbe1nzw7lttN y4JfR7ZSUlqnOuqXdoIXN 3u7SgBm53W92a IHdpZHRoPSIxNSUiIHZhb Mabtg5osY4uTw5+PGNvbC I4qTX6xR8qRsPiJnA3GHc mA291BxYpvFTg Aszuv6aei8mcvLd8PoQqM UZmhwVvlSdeSGA1m0BmUa 91O7LhkGdvn3FsAfe1fk8 1qBTlc5O8pJB4 K4LaVTSgayfkfCQhfFebM H4aGAAvjdvgGWAhlO7oJU FrV9f0GlMfUoB4HVtnY1W wqbX7RPXseWFa JTtjGDM6M62zn6L0WCWkC BDdDZS4xMA4eQ0dxEgtnn ogbGVmdDsgdmVydGljYWw jCHulL410THZk cKumKVUygR0wGVOfwSOjk XlhLK3ySPReqoanGnuROA 2QFwezCQKUUZ2jJDynpRV +NKYaCWF0yCll XSuaPRKjrV3nNNAtX4a2N wXuMuT0TQtoG0LeDTMhap vbNu91gN0nLwMvZaZ1VVs xW8LafxR7RHOa vZGkBRabUPN7Q45xm5T9F YXfSKUjSMR8qJZ5oB6oqS lnbjogbGVmdDsgdmVydGl qDIqmTXtpR116 EKFwgOvdHaO6ZuMtSfO4Y BV9U7BlXwu6IHStzTckYY 7ztAMrXLcdDl0ouRbzzWw xCP4iCNDeflqy QTRhhD9kDMJotSLtjAbsN V5xBROabignm007SnYeLT N0OTVqaLFqT6VevA0yAyW xYYVmNEAcV6Ex jZYfRQuiD829IPutOuO7T BAxkoSbI6EzELTdcHxwSf S2d0S3Hc6fMtHODFTmzqk vdGQ+PHRkIHN0 wTssSMpoMTRejH0zZGOlG 0g6XiGtLrY8HGbkL4ClZU KjgivsJc87nB0hRhTzHyK 8SZxzD5KkgkZ7 QGNjwHUtOPriHBJ3O13fm 2N9ZYWgIFXtOZL1eHC1xQ 1hbGlnbjogbGVmdDsgdmV ydGljYWwtYWxp D810JTOioWneTjTkaUAkP TwvdGQ+FLEiRNP5jPviST eyIOWafA3zQUGkX8m7LtF qJgD7NEbzO8Sq HVQdjmgzRn22sP9uTqLdO fZ1VEbnY5EigbO0OPVitV CtDWrlQRY9I27hk8K9ATG gGNKyVRT6fOE1 tT7mkVsjgjkptQFmvSzfn xSzlIpbFUhqBBhlM393DN NrhZshOxgvFpHMkq3vQX0 mZjwvdGQ+PC90 yp87C4OoUjnkZas5KWBpX GT6vWG3jB6fIKFeZDxdw9 Q9bBT1W8NyycGaxy0he5u uKKHqIPrzR33a iABpo7T5BFJryEA7QSNxc FslUvYacU23Abg+PGNvbG yer8QrHarvu9sbh8rqyHa 9IjMwJSIgdmFs uBqkTRB5k7BmCy31G77oV HdpZHRoPSIzMCUiIHZhbG cwzc5jfP9vAf1+PGNvbCB 0pOB3dP9kZnAk LoQ2YVezN560UoJiqQMsT mtqj0gwr4qffZc0DtWaPU BnfaSvqWckXZE4p1PvWq3 4J5MpaRfgp1Mc Pwf7aj30hQNbn5W0wMT3W 3BhZGRpbmctbGVmdDogMC 8hAJJdrkkzXTYjmW8uZTK eR1d1SsVhEyE5 HYjoN1FbziQ4IEZwmGHuH PAzpZHGpI9jdqrpo7wdcg lgWpEcYZKqKLz8EXk8JKF saWduOiBsZWZ0 IgO2VNJ9vARavK2naFcjp ocieS1sHoc+HNo3z2wyfM JuZN3ucUN5TU46EQ51uHZ ow7Z9sSF0J4Pr LOKeopdzyvcqfWM5JELhZ FFiqW99Lx6wgOamDw9sOU TvQUW8SYMcvEOyN4LyoW0 yOiAjMDAwMDAw F8YfeAPoRJpbO781BCkzW fU8KBQcnkQaE9XaQUUpuW nhZhK3g1T9Ar2WVC95YL3 7HX49rFSiz3N1 iLV7O6ZzAIAckgqpeoxxp RP2GCRwMPCilB34Wg9ulR plCk9aGUKsQYP1IHXsaIZ sV7VzrG1wPtSj GXUoNJXkK8HfkPOxXBwbK 653UEjnZxT4NYDrajWzN2 DkOIBefDxbZgQ6k1O5Gi3 ZQs87CH39IX76 fMEro3S2tNV1Q8SxRIMok krxwjwbfCM8LCYlIEEytD 59Eo2doTymUc1pUSOmNZX 8BQUkoXNvR8Vu vE2pFyJlKQLySKXbM5Pto VBtDQfsW101GNwfIrB6XI ZvswItS8IuEKOhhOrbNeQ 6a8X4Xa0ITYdu kyb1X8CfVuiwiSJ+PC90Y NMgRW39tFUkuFBka9jmaP l5WsXvJRCvDBS0yZpaGGd de1XgSMMnE44r bGFw (more content not included)... Normal [facility] Physician Orderon 07-05-2021 Physician Order [id number]# 1.00CD:127 Normal [facility] Coding Summary.on 07-01-2021 Coding Summary. CD:[id number]:[id number] G h0bWw+PGhlYWQ+FW0IJCQ bH57zzCOphW1UI9sQAO8K OMEBSTHXNB8PCJ2swZI7B DieJ5WvchYo GmcpiIOpFH82TYd1TER8u QupKHlljT7moCFdR2h4Pd OkMS43mD80ESasFANvSsH 3LjZpbjsgbWFy U9zgNeRooFXmEkl+PHRhY mxlIHdpZHRoPScxMDAlJy IntAspGC7hAy6fPLFkJMO vbGxhcHNlOiBj a4ayZBRwZBjrAC6brSjuN 6PzfKB8GSAge7c2Nf74mQ I+ATPuHDR3iOyrDSitd79 3YjLfr1ilUZQ5 wTWrESueYTL2D65qv3K9A JEaPKNeFOX9aAP7aO1wrJ kspmxkL4LkdFXiNcT9LZV 8nUNyuK2tkRfy mpvkdT6bWqb+S27RWF9SV NOSEA3KMge9G8JfOkuooE I+ZG31XWKyMJ30jIWwvBV rm8noeHz2KvHc VQBaIWX9kEwnZEuqm7KvZ EVdJ17znHUlt1D9IATvqT hjnONlPmZaaRS0vD8tBSn iemqgp2tcatui Whjck5goys46nM30P10yJ CjqAMCfQZS0FXHsCBDrdE zzxi8ywN8fRv2+IKfjb5e yr2yrsGy1IlSp GEPxwgFbkMuhKGJ9s6IlW v94C8LpnLpwb3CyPpx5lj 71fOHja6H7fCV8JKtmBOX owS6wSSjaEjP6 GAGhXjDsoJ85oFZwJBthU z3msNtsoJhjTY4pHCIqxz fgGLSqiZ9lHIShqYCdnYh pYY5lMKPujsjd k836ExVsWFI2AJZknDIkY 9JsdH0mWzHuTASjQEJuG9 EvjOGlDEbkY641PDwyUsT 9LUPvqzWtQ7Fi AUWbtGhzZjL3r9N1Zr1Lh 5UdedbtFCX7LEdvXEXwHm J6JyQmMoJ9V9FlOqh4ZJY rrFunNJ1tG8Nj LUOumwnmxtbqwUL1WWHgJ QVyzU43qVSuHExsSg5xp7 C0y723JKPwVQHtrV39Jo0 udDogMTBwdCBU xD7jzziqa3yyszcpDpShN SNjXJs1ZDu0RGRmaDbqMx FuAOM2HmP3AWP9dCWqoP6 xoGnwjhmkuG1y Oyc+L27erD4pKVG4AKC0t mcbIVLsdsDnOO19UW98K2 RyPjwvdGFibGU+PGRpdiB jjNruGH7hDdBm z3ugx9LhMIpvF6QlGNUbG XvuJta8TETeJXH7bBT3uL 7qPIDsQHrxx5L4cJZ4D7R hbfBvsn9xb3ac JOEfIYvwK59bsLSci9H8K ORytAH1HHAhfLcoPnIxcZ 93Oyc+MRRfpQyop1NsMhh av7wfs9zndMh7 IuVmZQRqrlUwaSflIGT9s 5GfSd21A99fFUojXBQrEQ KnKYQbIXAfeRcttm0hzA8 wIi8+PGNvbCB3 eMS9bC4rFOFsLrP0FKezI 257BgCzzUIyEehpm0upb7 wduCc8FtSuXTBlqmOmcVj oBMR6f9UpYa35 P18lTFbsPDInONUgFRLcX LYonMvmbw3dmL3uLg8+PC 9aw8pvww56rM79mJT+PHR mZEV0lOqwDWkm WGLikE9qKStlMrB7SBOsP cDeuC86wYYfUTzgRp1mfJ nuhPcrZA8zPKMknlkbp26 4XkJve5boEYAo rUMzVHddSEF0E99qt9M8H IQbQTMwYMB1cWJ3cF6yyF lnbjogbGVmdDsgdmVydGl cCMjsIQnuU913 IHRvcDsnPlBhdGllbnQgT vEkCYm6Q9WlXly7UEAphP ukED0rfZCbLSdnIy6uaWx dbDncFN8gPKOw invxp559TpXgc0ddIHBxh WMfZNtcFQI0L90xu8X3MF HtNAYsFAB6jYO0iP7fqKi nbjogbGVmdDsg njIbrBamHEjuSTejA885Y HRvcDsnPkJpcnRoIERhdG N2NT43BB17vSIzf8Z1sPK 6R0BiXMYvjvfb rgnvaAT0MSDpONLtlY56I l9yzBclPs3rEKTlIRD9FO VpzTKbX2UatB0cIbBvVNQ iINHrD5CeyLFi BEtmS044JNkmKlR0ABZmp jZuZ2QmAPWrnQywPdA7z2 L6Lt8RR6S9PF40TU04gZI sk8H9nFT4F1Ad WAPywldijsmzpHN1QOOuK FTmbE34Mr5elDmxBp2oKJ HjGFM6KYItyJKuH7ZvuI1 yOiAjMDAwMDAw C3FeoUFqJIdiJ539GZhyS qV8MPHzctCoH5EiPOToaB ggDiG8o0R1Cl4SOVu0LJ4 2BX63xVQko0E8 vUI1A0OpHOMnhoccuqyhs FE1FKDoTRMzgK95Ei3utZ jzBj5pQJIyYWR1JZPpuJP fM1OpwI4qLaBr JVXiITGbN0ManNQbKZsrC 149YVfoHxZ7OYLuueYfX3 NoBPCjyYkeSgC1v4M8Gk6 YJWArGY34NHK0 bBP0XP20RN91B9VnOycio GFibGU+PHRhYmxlIHdpZH RoPScxMDAlJyBzdHlsZT0 mWt9kVKUqLUFi rYwclXAyYdXtd4tlVCTdR XupUN1mkQjfL8CbmTF2QC Cji2a1Bx68U91cQ4IbgUB +IBYavGI1mFE7 pX7iZbDlZyJ4PNxnA262C nJxwKWbIffgv9yje3jwuY w6FeC8QUGsakZyyEpvHWN 2t3DqEp42F32i IHdpZHRoPSIxNSUiIHZhb Vnuob9crD0pJr8+PGNvbC Z4dUN3hU4xApNqXbF1FZf xZ154LwRyzGPs Iazjf7sna0dzgNc3AyAeD YCcgeBysGxgOUH7s0NkEy 49H2KdxEcge7FaKim1mb1 8mUKtv5L8cKO5 O5AxPHGoatpntSNurNleH D0hOAPkusfgPPEjpB8wKK PdZ0q9GuMjKjF7QLpjP3M lauY2SHTnsNDi TFpdQUY5Y47mr2H6AYErS XPjTXT1xGG7eO3pdFbbij ogbGVmdDsgdmVydGljYWw gYWvoL373PSMl jQhzAIEmyQ6yTPHpvUPvj BotWS1cXMNcygoxRrcQXC 2QSsctCQFNMM9bEWagwXD +MJMgCKB4aVqj DNqjTSNwcE3zRPZjN7y9M lUbPrJ3EVwwG3NmHOJnlp kzXv56gX8oNkQqYkC0HSi aH9HsyqW2IJBj jQHuKHmoBGK8T36at4S2D SJhITCbLDF4yBW3dL0tuX lnbjogbGVmdDsgdmVydGl eDHkePArmZ759 RLJbdFifMpM7TtTgUqL9Z BT1J4NzRdq6DHKudGvhWO 3viJUtSGdeRh1fmIowpUc uBD3kXWUbujjw QOLnyP3vDXWloJJgwTtlG B7iUOJocirkr339PtKaFR O8ZYUrhQCfZ9IeoK2oRmM tPXJnWYSvA7Hb xAZrXSlmZ058KAgjAoZ2P XKjrtGxC7SrSLVzkRpjSf M7a1S0Bg8sLqVTVQCdnns vdGQ+PHRkIHN0 uKerDQleBASvlN3eRWQnQ 2o8ZkCsFaR1GQxeZ5OiLE JbszkqId01lN0aEuNkPoA 4JYxwP5JmkrT7 PJCbsGKjHOqpTLA0B76wv 6P2KAFlCSDbJCF0zOP6eL 1hbGlnbjogbGVmdDsgdmV ydGljYWwtYWxp X203LRWolQpbDtJtgNSjQ TwvdGQ+DDWpUDC1pOgsGW rkJCWthO7wQWHgR9u8EzQ vJmW7MBpwR6Wu AFSzbxutVm13yO7dEnMjG wS8AOqyA2FzuuQ5HCJnnT CfHLweULR4G80au7B8YSQ hJOEmXRY4oQB5 oN7dcAcctteqjZAyxQjho oXagQpoNKxuOZkvL346HF HwuNatKuqrKlWFcd8fHW0 mZjwvdGQ+PC90 mn82G4ToLntiPkp0OIAfW ZG4wPM2aA0hNFKlKXspo6 G0kNZ5G7LgedQijk8ye9k jACCaPLzeX33e pRZkc8A5IIDzvYY3GUSin UgoWjIrmT44Drm+PGNvbG jyf3DeLpkco8shp4kqzOg 9IjMwJSIgdmFs kPoqBXQ2c6ZnZb76D13xF HdpZHRoPSIzMCUiIHZhbG xofn8fsJ4yMh8+PGNvbCB 5iOV1uX6xXaUy VuI0QSrvW300IzRikCCxJ obdx6lie5jubLv0JsDhSN LjrnMahYkkAYY6q6IhKq4 3W3EegLbcd4Yt Okg0mk32aVFqo5M1sVY4Z 3BhZGRpbmctbGVmdDogMC 0rMWGehwyqMJNsiU8tOUO sL9c5ImQoQrB5 WRjsF1AxhrW2FIWeoTIeD VXqcLOUtB7qlmrap1hukb qrSaQuSWMmWTx1FJi1JSS saWduOiBsZWZ0 GrV7CIS4lHTqeI3ekBfie ejufL5cGeo+UPr0l0bqaP PsHG6vmGV7ZS20AI61bWN tk5R1hLW5C6No BGEqanwzjvmlcIP5EVXcL YNhrJ34Dx0wnIxbPc7eUH QxROF4EHGvdBQxT8AaaC8 yOiAjMDAwMDAw S7UccDOoVAcdQ444WUxuB wI6YNUgpcXdQ7KjYWCeyA xhCbV7v1W0Sv6OAT38EJ8 9EU99nGMro5F1 iAA2P4ZjXTIwnfqvvggiw KF6CBIeABTutS40Nx9thG yrNg2qENOaKXU6HUUlyRT eH4AanH1fIdAn OPGhCNOeK0CmtXYkZFblW 971SWbgFrM9DIGfezSaA4 HgXTBbwNyaXzH1l4P6Hf4 DQy75XP80SA95 bQRfx0T5qWY5S2McXESqx nvxljfxsVX7DDUpKNHecG 14Xl8bcWgqZj6qPYLeXHN 0RYSzlUPaJ6Cv tT9cJsPhGESpEFJbK2Plh IBrBNpxM867TAflMsT3JX NbvmCxI2OyTTUtyPtfSkG 6y5N6Er3WYApd qfz1M7RuGeyrwGH+PC90Y FLuIK86zTDbsTIxc4tucP r8OtRzUXGlLWX5iXqhVLm fu6LfZMZpS98c bGFw (more content not included)... Normal [facility] Lab Miscellaneous-LCon 06-28 Lab Miscellaneous COMMENT Invalid Interpretation Code [facility] Comment on above: Result Comment: Test Ordered: [id number] IGP,rfxAptima HPV all,16/18,45 IGP,rfxAptima HPV all,16/18,45 Note [A ] WB TESTS RESULT FLAG UNITS REF RANGE LAB DIAGNOSIS: [A] 01 EPITHELIAL CELL ABNORMALITY. ATYPICAL SQUAMOUS CELLS OF UNDETERMINED SIGNIFICANCE (ASC-US). Recommendation: [A] 01 Suggest follow up as clinically appropriate. Specimen adequacy: 01 Satisfactory for evaluation. Endocervical and/or squamous metaplastic cells (endocervical component) are present. Performed by: Re Mederos, Baseball Inspector ([facility]) Electronically si... Kailyn Jay MD, Pathologist . 01 Pathologist ICD10: 01 R87.610 Note: Note 01 The Pap smear is a screening test designed to aid in the detection of premalignant and malignant conditions of the uterine cervix. It is not a diagnostic procedure and should not be used as the sole means of detecting cervical cancer. Both false-positive and false-negative reports do occur. Test Methodology: Note 01 This liquid based ThinPrep(R) pap test was screened with the use of an image guided system. . 01 See below for HPV testing results. FLAG LEGEND: L-Low Normal,H-High Normal,LL-Alert Low,HH-Alert High <-Panic Low,>-Panic High,A-Abnormal,AA-Critical Abnormal Performed at: [address] [facility] [place] [address] Kailyn Jay MD, HPV Aptima Positive [A ] =G Reference Range: Negative This nucleic acid amplification test detects fourteen high-risk HPV types (16,18,31,33,35,39,45,51,52,56,58,59,66,68) without differentiation. HPV Genotype 16 Negative =G Reference Range: Negative HPV Genotype 18,45 Negative =G Reference Range: Negative Performed at: [facility] [id number] MD Misty Avina Performed By: #### 3 [id number] ####[facility] [id number] [place] [address] Physician Read PAPon 022 Pathologist review Ren (Unsp spec) [Interp] Note Invalid Interpretation Code [facility] Comment on above: Result Comment: TEST S RESULT FLAG UNITS REF RANGE LAB Clinician Provided Cytology Information No. of containers..01 ThinPrep Vial Physician Read Pap Note 01 Performed FLAG LEGEND: L-Low Normal,H-High Normal,LL-Alert Low,HH-Alert High <-Panic Low,>-Panic High,A-Abnormal,AA-Critical Abnormal Performed at: [address] [place] [address] Kailyn Jay MD, Performed at: [address], [place] [id number] MD Misty Avina Performed By: #### 3 [id number], [id number] ####[facility] [address] [place] [address] Lab Miscellaneous-LCon 06-16 Test Code 543011 Invalid Interpretation Code [facility] Comment on above: Performed By: #### 3 [id number], [id number] ####[id number] [place] [address] Test Name pap Invalid Interpretation Code [facility] Comment on above: Performed By: #### 3 [id number], [id number] ####[id number] [place] [address] Physician Orderon 06-15-2021 Physician Order [id number] 2 [id number]:127 Normal [facility] Coding Summary.on 12-22-2020 Coding Summary. CD:[id number] G h0bWw+PGhlYWQ+NE0SFDA dT67efMEbkQ0YI2vGWL0R UBGRDLSHDQ7TAS5jkUH4E OxjC2TsvtAq OropuEBcPW81YEu0KCU5n OetCWhfrM4keTRiW7v6Ci IsHL84jX62FMaqYIBwTdY 3LjZpbjsgbWFy G0znPcIunWBqHvy+PHRhY mxlIHdpZHRoPScxMDAlJy GydFrzKJ9oMl3hBAMkPFQ vbGxhcHNlOiBj w8ktKJRkZLafCL4lrRfaF 3AynIG3ESLal0t4Gn06sK I+QWTkXBE4nJrpGIafk17 3YtFkx5hvEXQ6 sRLlYSyjWGT8V32ub1Y3K HGyAFTvOGT6xKS6yE6ozT ygtplgM7JypRFiDzJ7BCV 3fHObsT1kiVwt xxnudJ5pNvu+W23SJA6NK YAQCJ0MFzb0J8HwZyqhuD I+IB23DPKtEA37yVEaaHL vr3kfvZq4PrKw ZHOoNJJ7uTttGMlwn6MrM XYaD75moPPxq7O7GRMmaJ ammBYlNgQpvHU7xX5uCUh vjmsbn4oltsie Pvqqz5qsky37tX88G31zK MwnAQEgPMF9MMWbGXGafD bsxl9lxN8gZr2+TGbgj9d xb5kvoZo8KrXl SAZnttAdbHlcPUJ6f6KkN s92W8MmpSbcy9RjGai5cb 48iHVqg9V8tVB6ADnlUIG usR7yZZgxSxH6 RYHfNqDunJ20gTKqWUxeX w7ttYjhtUufXT4sRVJfms urIGPkkI2vNNDuyEMejOx tOU7eNOIkpccm n881KgBjQAC2BITtcIExV 7UtpN7sLqRlMHSsOVAcG6 InmFHhCBgxJ334ZWizEoJ 1VTFblmQfJ4Sr ETXofWfoPuE5o3K1Dh0Ym 0FwtpalABL3SMloJEY5Hw Q0WaVuBnL9X2ZzPph0ENO vpUinVJ7yF8Mb IOVxqyvuukyeuDE3UJNiX ZJhvD07zXNhQQtlOw6fd4 O4g551VDZyOWLsdJ67Zb6 udDogMTBwdCBU oP8mpanvd0qahziiOuDeW OTeLXd7ICu7DAWzgWxrSw WlWES4IoF9NTG7eJGofG7 yqLzhncmlcZ5m Oyc+Y88afZ6rUWR7ZFQ5c qksCIEoqaCwCM64CJ96Z1 RyPjwvdGFibGU+PGRpdiB ggDgmFS2aWaXp p0qnp6SkEKzmV5QbOFWxJ OawEyt7NNIgIPF4uPY1yS 7kIMYpJOkhu4I4uRK1I7W clnUmjy9xf7gc NSCxZLkoN67pkRNve1B3H UQyqJN0IIPflWhzVxMrxW 93Oyc+FKMetAysw1HkUvh jo5sia5kcmGs8 MyMvAKPuofQijRkxJAL1s 4OaNe82U15qIXmaGLGaAF LvMEFiZSZdsAuhrl2xmR1 wIi8+PGNvbCB3 xGK6uE2oXMWnGcD9BPfgH 892OsHfoLVeXkruq7hqg9 iroMo4NiSbINRrsaQvkVi eFRX1d9XjCa39 O30hCUhcJFHlRPYpHRTbV GWcdEkbpd0zhG6vHd6+PC 4wc0gjmq55bJ90zUI+PHR qEBA8qDrmVFro KBQxfT0yHDdaDzF4OEAbC lFlvF25zRBfVUdvPy4hgQ xrbElqXN6cAAPykevgl23 3IwVpr5hwYWPe fYLwMEvhSRO8Z70xc0A7G GPcVYYuUFY1qYE1eX9bmL lnbjogbGVmdDsgdmVydGl oJAhwQGukP072 IHRvcDsnPlBhdGllbnQgT oNhXBs7A7SeKox7DBVypL ldRE8wePZpYZabNd2cgVd cmWkoZU8uOHIl hqyrw429BdJiq3vtWDFfk OZaTYvnCPF2T49ob0J3IT CmHSAtBLG7yJR6dH8kxLb nbjogbGVmdDsg boElvGplDAfnNUvcQ683F HRvcDsnPkJpcnRoIERhdG V3MG30JK36bHQnv2V9wGR 4M2VaZKKxcpff keiggML2ZXPiRMUtyN25E e2xrExxCr4qRZIzNVM7LC FicTBsO5GydQ9tVqGuWOQ tRPRvN6RamMYr SDrcM430POnaMwW7OVWpi pKyK4ZcOBSvlNxlScZ3w2 B3Xp2NU6R4YM31ZS24eJB rl0I5ySH4U8Tp QSYdkdqnaiqckNY8BDNiR PLwpG33Nm6hkPfhEw9eYA RdYTB0WZGrmVEnM0OknE7 yOiAjMDAwMDAw L8DjhCIrRQhrZ463JRryZ yV4RKGdvyXoK4WqJMKpjI vtIxM2u1H9Zf2BPDy7LY0 7HM27jQVza3E6 bDC2I5DdPNOawmsjqpjtj WI7VTZdVPAueG76Eu4dwK zqDq1lOJKiIPP1DHYcwTD vH8XmkM5uGyEf HLEaJOKnW4EhaVRpSFtgE 657BFksCyR4KLMhjjJyU9 OzFMOdzTvoRkL7k2R1Bx8 AVJZbLG04AKX4 jFQ6BA96NB10G1DvEeltp GFibGU+PHRhYmxlIHdpZH RoPScxMDAlJyBzdHlsZT0 mAf9wRGDiMWRu uXlzzJEiRiKaz2nmIRZlS RkoPN4vtWwzD7RetEY9KS Brm3a9Uf63R25cW3EmcLR +UTAlwDQ9aEF3 cG9nAvFbZxU4CGnbK958Y tPmdGOtMwldf3ytk5zkpC q5CbI7XNGwccOzlSyxFDG 6g0WcPl16R39o IHdpZHRoPSIxNSUiIHZhb Jovar1nkU1oVt7+PGNvbC P9tRR2jF2gDdJnDbS4KIl qA212RdYgvXYh Xexzy3yzq2smcHl0AcStG RUyhuSdyAbtOCX5t1SeFc 40E4PbjXqnn5BkOrb5xm9 0cREir7L7jDB6 E5XjJDKtbgdohMImuPkbO T0xSKRwlaroRAFacG8aRN JrN1z2ZzGeZbP3LIjbY0J dnyB4JYZaiLGf EXfuDIO0M32zi6M4ELYaX CGtBLO1cMP9dR0rvSbkik ogbGVmdDsgdmVydGljYWw iGVvgJ211ZIQw nFkdCATmdK4xKPSijVCjx LpfII3kVGOrsilvQviXAB 3TVtqmLAZIPX3zUFvizIV +HDCrUSH6yGht WNeuSEDuuI4oQMPsR2r8P yJuYtW4XYhfK7AbYNUfud lqRo11mQ0sMjYcQpL6SBf wQ7BdrsR7HNYs qQVeFDkfUTD7Z24th5M2S OWfXDKhCOG2fSM7iM4ylY lnbjogbGVmdDsgdmVydGl ePZcwVBiwH710 FEKnzMovKbI5PsSnFgQ0J TC7B8HcKbw6HOYluFnnPT 6iqXJjENaiUw2aeVgliWc jJV3dYQGomdyj KVBdsZ2fKJPtrDCatYotZ B6mYUKnilgwz917CvRhJR L6HHIakGImM2CeyN5hGjI vOWLqVISkG7Lf pDIyKJhuP677YQtkToC0O PCxpkDlW4CfZWOxuSvnXh I0i5B1Bt9wSmHPNKYfefr vdGQ+PHRkIHN0 lIccHJloWPLxyY4wYBHlW 0k4PrNpBqN3UDvcM1NiAY OpkpjuKr00wZ0hCbAfIoD 5GUvdZ9ZutvX6 BTHzhWJjPXirVUN0G56in 8I3NHZlAWXkCOD2gQC8rY 1hbGlnbjogbGVmdDsgdmV ydGljYWwtYWxp X008BSLetCzmHhWqpJWtL TwvdGQ+LSSrZIO0nGqxEC ymLGAymM3tRULwS2l6ZcO vWhQ0KLsdU4Ax ZKHhssslHr95aY5cNiZeN kM0SZrtP1KqnfR4FYIxuN UoRRueTJY5S90lv5P5MRL fTSRhYCM8vUW0 zC7epAacyzfhaHVawBljp zWlfGakMQcfSOhmF934VC XisDuiDfkmUlVZhm1eQB3 mZjwvdGQ+PC90 ys39D4DuOwctIgq4ZWDiK FV5aZM7sY4zVWEsIQmja0 G8qMF6G0PlxmSqbt8ox4x rDROpQIdeZ40d eZNew3T0VCNsuZH9NIAye OhgBkUthF84Bpw+PGNvbG veh5CmLglnq8bei6fsgXs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 Weight Bearing?: Y , With or Without Brace/Cast/Collar: Without , With Magnification Marker?: N , , , Ordering Provider - CARI GOOD MD , Rendering Provider - CARI GOOD MD , Vital Signs Date Time Vital Sign Value Performing Clinician Mateo sawyer 07-29-2021 18:50-0400 Body temperature 96.98 [degF] Mark Shenten [facility] 07-29-2021 18:50-0400 Diastolic blood pressure 58 mm[Hg] Mark ipadio [facility] 07-29-2021 18:50-0400 Heart rate 70 /min [employer] [facility] 07-29-2021 18:50-0400 Respiratory rate 12 /min Mark ipadio [facility] 07-29-2021 18:50-0400 SaO2% (BldA) [Mass fraction] 99 % [employer] [facility] 07-29-2021 18:50-0400 Systolic blood pressure 100 mm[Hg] Mark ipadio [facility] 07-29-2021 17:50-0400 Body temperature 97.52 [degF] Mark ipadio [facility] 07-29-2021 17:50-0400 Diastolic blood pressure 60 mm[Hg] Mark ipadio [facility] 07-29-2021 17:50-0400 Heart rate 70 /min Mark Moffett [facility] 07-29-2021 17:50-0400 Respiratory rate 12 /min Mark Moffett [facility] 07-29-2021 17:50-0400 SaO2% (BldA) [Mass fraction] 99 % Mark Moffett [facility] 07-29-2021 17:50-0400 Systolic blood pressure 110 mm[Hg] Mark Moffett [facility] 07-29-2021 17:49-0400 Body temperature 97.52 [degF] Mark Moffett [facility] 07-29-2021 17:49-0400 Diastolic blood pressure 79 mm[Hg] Mark Moffett [facility] 07-29-2021 17:49-0400 Heart rate 69 /min Mark Mofftet [facility] 07-29-2021 17:49-0400 Respiratory rate 12 /min Mark Moffett [facility] 07-29-2021 17:49-0400 SaO2% (BldA) [Mass fraction] 99 % Mark Moffett [facility] 07-29-2021 17:49-0400 Systolic blood pressure 113 mm[Hg] Mark Moffett [facility] 07-29-2021 17:10-0400 Respiratory rate 24 /min Mark Moffett [facility] 07-29-2021 17:05-0400 Respiratory rate 24 /min Mark Moffett [facility] 07-29-2021 17:00-0400 Respiratory rate 27 /min Mark Moffett [facility] 03-25-2022 14:40-0400 Heart rate 72 /min Mark Moffett [facility] 07-29-2021 14:37-0400 Blood Pressure Location Mark Moffett [facility] 07-29-2021 14:37-0400 Mean blood pressure 93 mm[Hg] Mark Moffett [facility] 07-29-2021 14:37-0400 Blood Pressure Location Mark Moffett [facility] 07-29-2021 14:37-0400 Body temperature 98.24 [degF] Mark Moffett [facility] 07-29-2021 14:37-0400 BP/Pulse Patient Position Mark Moffett [facility] 07-29-2021 14:37-0400 Mean blood pressure 91 mm[Hg] aMrk Moffett [facility] Encounters Encounter Date Encounter Type Care Provider Facility Start: 09-21-2021 End: 09-21-2021 Lab Drop off Steph Temitope Brady [facility] Start: 07-29-2021 End: 07-29-2021 Admission to same day surgery center Mark Jessika Moffett [facility] Start: 12-01-2016 End: 12-02-2016 Ambulatory VITHAL SHENDGE Facility:[facility] Start: 11-01-2016 End: 11-02-2016 Ambulatory DEFAULT PHYSICIAN Facility:[facility] Procedures Date Procedure Procedure Detail Performing Clinician Start: 09-15-2016 left humerus ORIF Mark Zuhair Appendectomy Mark Zuhair Payers Date Payer Category Payer Policy ID Unknown [id number] Unknown Social History Date Type Detail Facility Start: 12-14-2020 Tobacco smoking status Never s moked tobacco (finding) [facility] Tobacco smoking status Never [facility] Sex Assigned At Female [facility] Hospital Discharge instructions 07-29-2021 Note Date & Type Note Facility 07-29-2021 Hospital Discharg e instructions Patient Education 07/29/2021 17:20:52 [employer]STER - Post D&C, Hysteroscopy, LEEP or Essure/Laparoscopy (CUSTOM) Instructions post D & C, hysteroscopy, LEEP or Essure/laparoscopy You can resume all normal activities within 24 hours following surgery. For 24 hours: no driving, making any important decisions, drinking alcohol and a responsible adult should stay with you today. Please refrain from intercourse, douches, and tampons for the next 10 days/ You can expect some vaginal spotting, cramps, or light bleeding for a week and up to ten days after surgery. This is normal. If you are soaking a pad an hour or more frequently you need to call your doctor. Your first period may not be normal, but most women resume their normal cycles within a month or two. It is helpful for your doctor if you keep a written record of your bleeding following surgery. When abnormal bleeding persists for 2-3 cycles, please bring the record to your doctor. Return to the office for post-operative check, and to go over any biopsy results at your scheduled appointment; usually two weeks following surgery. If you are uncertain if an appointment has been made, please call the office. CALL THE DOCTOR if you have severe pain, heavy bleeding, or a temperature of 100.5 or higher. Resume your regular home medication schedule as soon as you are eating a regular diet. You can either take the prescribed medications as directed for pain, or you can take over the counter pain medication such as Motrin, as indicated on the package for pain or cramps. PLEASE CALL FOR ANY PROBLEMS 07/29/2021 17:20:52 Post Op Patient Instructions - FT (CUSTOM) Follow Up Care 07/12/2021 14:08:06 With:Mark Moffett Address: [address] [id number] Business (1) When:2 weeks Comments:Call for any problems. [facility] History and physical note 07-29-2021 Note Date & Type Note Facility 07-29-2021 Note HOSPITAL REGULATIONS : All Positive and Important Negative Findings Shall Be Recorded DATE ADMITTED: 07/29/2021 ADMITTING DIAGNOSIS: Cervical dysplasia. HISTORY OF PRESENT ILLNESS: The patient is a 25-year-old white female who presented to my office originally for colposcopy. She underwent colposcopic-directed biopsies which revealed moderate to severe dysplasia with a negative endocervical curettage. After discussion of the alteratives of care, it was elected to proceed with LEEP excision with endocervical curettage. We discussed the risks of procedure including bleeding, infection, injury to internal organs, possible creation of incompetent cervix which was explained at length and the patient understood this. She appropriately signed consent forms and made ready for the Operative Suite. PAST MEDICAL HISTORY: Allergies: No known allergies. Medications: Provera and letrozole. Illnesses: Cervical dysplasia. FAMILY HISTORY: Noncontributory. PSYCHOSOCIAL HISTORY: Negative for cigarettes. Negative for ETOH. REVIEW OF SYSTEMS: Noncontributory. PHYSICAL EXAMINATION: GENERAL: A well-developed, well-nourished, white female in no acute distress. VITAL SIGNS: Afebrile, pulse 80, respirations 18, blood pressure 112/60. HEAD AND E.E.N.T.: Normocephalic. Extraocular muscles intact. The pupils equal and responsive to light and accommodation. Nose and throat clear. NECK: Without masses. Without thyromegaly. LUNGS: Clear to auscultation and percussion. HEART: Regular rate and rhythm. BREASTS: Nonpathologic. ABDOMEN: Soft, nontender. Positive bowel sounds. Negative for guarding. Negative for rebound. EXTREMITIES: Negative for clubbing, cyanosis or edema. PELVIC: Normal external genitalia. Vault within normal limits. Cervix high grade dysplasia. Uterus normal size, shape, consistency. Adnexa without mass. IMPRESSION: High grade dysplasia for LEEP excision and endocervical curettage. Mark Moffett M.D. van Dictated: 07/28/2021 [id number] Transcribed: 07/29/2021 [facility] Comment on above: Result Comment: Elec tronically Signed By: Zuhari BRANDT, Mark Rosen\.br\Date and Time Signed: 07/29/21 11:44 EDT Evaluation + Plan note Note Date & Type Note Facility Evaluation + Plan note No data available for this section [facility] Discharge instructions Note Date & Type Note Facility Hospital Discharge instructions No data available for this section [facility] Summary Purpose Family History No Family History Records FoundNo Family History Records FoundNo Family History Records Found Advance Directives No Advanced Directives Records FoundNo Advanced Directives Records FoundNo Advanced Directives Records Found Additional Source Comments INFORMATION SOURCE (unrecogn ized section and content) DATE CREATED AUTHOR 10/31/[address] [facility] DATE CREATED AUTHOR AUTHOR'S ORGANIZ ATION 06/10/2020 [employer] DATE CREATED AUTHOR AUTHOR'S ORGANIZ ATION 11/04/2021 [facility] FOR RECORDS PERTAINING TO PATIENTS WHO ARE OR HAVE BEEN ENROLLED IN A CHEMICAL DEPENDENCY/SUBSTANCEABUSE PROGRAM, SOME INFORMATION MAY BE OMITTED. This clinical summary was aggregated from multiple sources. Caution should be exercised in using it in the provision of clinical care. This summary normalizes information from multiple sources, and as a consequence, information in this document may materially change the coding, format and clinical context of patient data. In addition, data may be omitted in some cases. CLINICAL DECISIONS SHOULD BE BASED ON THE PRIMARY CLINICAL RECORDS. [facility] [employer] [facility]. provides no warranty or guarantee of the accuracy or completeness of information in this document.
[2023-05-23 04:08] LABS: Progesterone <0.1 ng/mL (.)
== END 2023-05-21 16:08 | disposition home or self-care (01) ==
PROVIDERS: Visit Provider Obstetrics & Gynecology
DX: N97.0 Female infertility associated with anovulation (principal)
CPT/HCPCS: 36415; 84144

== ENCOUNTER 2023-06-22 13:01 | Outpatient (OUT) | payer SELFPAY ==
--- OUTSIDE RECORDS SUMMARY | 2023-06-22 13:20 | XMS_ITS | CCD ---
Author Name Unknown Address [address] [place] [address] Organization [facility] Care Team Providers Care Steam Trap Man Name Role Phone PHYSICIAN, DEFAULT Unavailable Unavailable PHYSICIAN, DEFAULT Unavailable Unavailable SHENDGE, VITHAL Unavailable Unavailable SHENDGE, VITHAL Unavailable Unavailable SELF, REFERRED Unavailable Unavailable SELF, REFERRED Unavailable Unavailable Dave Red Primary Care Physician [phone] Medications Current Medications Medication Drug Class(es) Dates Sig (Normalized) Sig (Original) ibuprofen 600 mg oral tablet (2 sources) Nonsteroidal Anti-inflammatory Drug Start: 07-29-2021 take 1 tablet by mouth every six hours ibuprofen 600 mg Tab 600 mg = 1 tab(s), Oral, q6hr, # 10 tab(s), Refills(s) 0, Pharmacy: [facility], 164, cm, 07/20/21 5:00:00 EDT, [...] Range Facility Coding Summary.on 11-04-2021 Coding Summary. CD:[id number] G h0bWw+PGhlYWQ+LJ5JPVP dX03nlFXovZ5LV2iFXE2M FHBMYKMGEB6WUE8bgVO6U GqfB7ZpedTk BwnarQFzDZ29UEx5ONI0x VweTFtsiY5coXTeD3v2Nq PgHV08kX35LWcaSESoKdO 3LjZpbjsgbWFy E0aiZoMriZUvLqe+PHRhY mxlIHdpZHRoPScxMDAlJy BtaLtqTF0rXr1dLJGeBQZ vbGxhcHNlOiBj x6fyTHMtFMnjEB9crHtcH 0BfiLG2YYPbe8j0Xp26iF I+UXImLXI9iKvfJYvhc75 0JyUwy9jjDQY6 vMWvWXztCCQ5Z29jk0I2C BNwDXArHUM3fHK2vD5qbN foffisJ6ZowLBmArT1URM 5lEMkdZ9gzSfo qkmkcJ9iLwu+M12LRT0NZ UAVRH4LOxa8C3BuXsrmrO I+HZ98GXXeHQ33tHPwxOZ jr0hpxMa3FwXf PWAvGWF9tIfrQNlfd8AiI XEfQ03ruVCka3G6LPLdnY wgcPEvEpVbbOZ0aJ5vSIq gfquqs6fbarrz Cspyy4xjkc99qL40W50sJ PloBWMfWBS6SHKcDPCfcE asvm6lbZ9iRy6+IRqnu9k zn1kqtXl6OiTn XCRxymGwoHjxLYV7f6EoN f23J8IcvGdoq5WpAbu3th 77oVUwg3D2fOD3HGtdYKA kdE0bYHrjBrW0 PMDcHwFvlB70lTErLAjwP r1gyHpxxLcgGE2zXYRuff zyJKPuyQ4eTOJqpUWqtSq gTJ9mWSLbxuyy h332GvLoQKT9PVAtyRCvD 0RgxU9wYoClNMOpYEKsC5 ScvWTtCCyrB746JXvtFfM 6VRYzrlRrC0Nx UPLgeZkvYyR9c1B9Jq5Sk 1DiqdisFKP6WLqkRAK6Vs EaHxTnLtV7Y3EwFne7GHK xzWmkPK5fE7Us VBJbgtxffrsjaXD6YYYaD OVzjX97cYRcIKniHc7rr7 E2t831DCXbCZIqdF67Ym9 udDogMTBwdCBU bW0ojszor2ahdwydCvAhH REgWIb0NHf2XRDvqVexTr GfJZF8YdK3BVI6cRXgtH0 otIefcuubmJ0g Oyc+S85fxL3wIGJ3RJW8m bqlFLWwfwXdVJ88TK14D7 RyPjwvdGFibGU+PGRpdiB vvJopJJ0xEkZg i9wyk6TfYEckW5CoOZLpE GhnEud7SLOmDBK1bFT9gE 6uWPPxQKkdy1L3rQT4B1B lqcFoyc0ip2iv IEAvUOlmC08oiZEsf8D6C TLhqNH4WYIpkXnaQiWgtI 93Oyc+GTKauTxfc6BrTqo sc3aam6hykYr4 LwGeFQKqizWdbDdlBPF4w 1OhJg92K54hHTrlCLYwAD OoQUYtPMOhtZuhcn6koZ5 wIi8+PGNvbCB3 wAZ8xA6tVHNiFsJ7RUgmC 924WaKwuZOiNmblj2rtn5 mfbAl1UyHcHTIyomAwbIn gZNG3y8KxBs58 R77cOBhvIEBpQVAfFPPaF RHnrMntts2jjK7wQk4+PC 3rj1zyig89hA36tYK+PHR yZYR2bTjoXZqn HQSfgQ7mNOprQwG2WSIhB bNjgG03uGKbMRgyVj6hiW hxgVqnXE5cRFFjdusgt83 6UvGtq1xiIQFd oCRwSSzqEMG7M06sb5R5K ZBtXIXcAUZ4rUV4hN8efG lnbjogbGVmdDsgdmVydGl dHAlwJQctF653 IHRvcDsnPlBhdGllbnQgT bSpWVi0K5WuUrb6YCZjoV xmOL7obHVpEOtpSm9noEa biVmwHZ1dWRHb ccsnu533WvSvb0rqDEAcj OEoUCxvDUX0Y49cj9L2XA NtUYJyYLD4fGI0eL8cdZh nbjogbGVmdDsg mpStpKisWLmdWBpzN140H HRvcDsnPkJpcnRoIERhdG M9KQ11GV36sFLze9X7wRK 1C9CcVLSddfzt guzsiBN7HMWkXOWrzL04Y g1byMzhCp4xGOUdFNF2FQ FycNPsL6DqlT0rTmWiJAN dBTIbR0OzmUQn MTmpR588DBpeXqM4KADbf pFwR6ZwQVGacFbaThI0v4 M4Ie6OG6T4LK97XN28hPA ix7S5bQS6Z1Mr QCRcnblsycpmoPJ6BELkK YUzxJ12Xo5pbZzhEj3mJI YaWEU2OVXjuOTtR9KskX0 yOiAjMDAwMDAw O5HjvOWfVZjqL630LEzfT sR1RNBwzhFfP5CsHWMdrX tmEtP6g8Z7Av9BBMq0HF7 2UA77yTFjr7A9 vPW3Z0NcTTUnjoqbxispo HK9VRFpZGTylR43Hu6mlI liZp4yCLXpFSP0UMGszQW lB9WvuA4oUwJl JQNhSCGkD8PqnAQfUDovU 015XOjkEgI1ULIrxeFwQ8 TzXWXnqTqbWrJ9h3Y4Tk0 FIVFzPP08UTU7 eSU8TO24QS80D4SpMdymx GFibGU+PHRhYmxlIHdpZH RoPScxMDAlJyBzdHlsZT0 sEu3sGZFqMEJa dSjflPXoOrNyt9mwLIYjE WseIE6fyCwkM4EbjXW4UF Urj5k6Ml22Q30hL4NunBX +YXCnfQG1jOT8 hW6sPtAoWgY6JNsvQ782I yPzjEZgAjfpq0ike4nctL g7ObF8QDMappHiiApsUGG 9t9NxBk55H40u IHdpZHRoPSIxNSUiIHZhb Khcfh8btR4jIf5+PGNvbC X6cKV6dQ5xJiJmYdM7UMc dC920ZwFxzDRt Kmnzs6ouc0lidTh8MbYxW QWcdfIbqWlmVNC0r1ItCk 82F3HabWnua7LjPhl4xs4 0nWJkp0M9cQD9 U6OlJFXhddshzXFnrVpqR V4cAWRctcvcQVIcjZ2mXE LeN5l0DgCyQgX8LDuzU5S rsjG9HWMwyMOo CAwoSTH4U05mg7I6TMBzG BZfHGH6wXR5yX8umYyury ogbGVmdDsgdmVydGljYWw bSLvoU834EWVw nNxoDVFpuI4ySCHwvQZal KwyWL5dAQAkqjxeLqeYAV 5NYffoBFIREA6dUIgojJG +MJPxYFH5rYve ZSzsWUOddL6jVIAkI2h5E rQiLfN1FBdbD9RiTVYdpe ttZj65yQ1uKhYtCoB5ZXd cS4OnleS1MUJo cIDjPTizQJW6U94dz1M7H ZPtOUSyDTI7mOR4oY0hfJ lnbjogbGVmdDsgdmVydGl wLGquOLpiO243 CSBziEsdQdD8RfTsIfN2K VK7J3DvSfc6SVMdaVflHI 0kdXJpMXosZt8bdTkniTv yGZ6kPVZzxzsb ETEriG0fOZKauZNazXizT X5cZKOjfknis120NvUyCG B4ZZSkaUKpA3TloC7zCiZ wDCCnOXWlQ6Ih vVHmTNvlV860JYkzMdD6J WNnvaDgH3VnRUPbqOqcSh O3u4Q3Mt0wZiQIOFGmkbc vdGQ+PHRkIHN0 zEwuEVtfLDLxoF9sOMXgV 2w1VsMfTeA5VFtwW5SePY FnscruAl23bF2fOoVcFwZ 5LTikQ2DpysJ5 OHGhaEVzBVvrYER6X00dy 4B9JSNySTOyIZU9tWD6iJ 1hbGlnbjogbGVmdDsgdmV ydGljYWwtYWxp H781KCSncYrdYgDlyEGtP TwvdGQ+SKBaGAP2lFbsIC zbTPKtmX9pDJJhR8k4PbM jLtV4IUoaY3Is XHXbcwsmNy77gX3sRyGlT iH5QXegU3DttoJ2ZNPmlM BcGQvtXCC4U43wa0H2IJS jLKGdWCL0hVY7 fV6uyDxktxdegQXvhUbiw qJkmSxhHStgXYkxM299YC FtyMttFo79aAEkpRawieT 8R7QjTcweuWG+ UQ67XJFuMY96hFZfvFXbp 5eyiXx3VnFcGVQxMVT4yJ imRLryt7CnSVSmP32zlUT oz0J6HCDxeQrr gMGuWuZzuYE7yH2qHBzic zyya1wlzajpFnohx9aefe 48oF02M55mJBtiALQdZPV zMCUiIHZhbGln kx1vlC9eOd1+QTUuuTR7u ZG1vN7zKzYiKpY8MUfoH6 58HxGlhMHnWlrrx1qly0z hfFh5TeDjTCCr siXqkWhbLHF5z0XaZz46O 29sIHdpZHRoPSIyMCUiIH FopBhcok3noJ9lNh5+PC9 sm3fbqm46nJ97 dHI+EHMkSEH1gPbfQFnsA VWtkW0dASaxScB8BPTqFo ZopL79mPIbJNkxQa0dhZn vlWmlKD2bJSNi usrmp295NnOnw2fdJDBxs JDuBLwvDDX0O43od0B8UV TcLVYfIDT5qUY5vR0qiDp nbjogbGVmdDsg kgYzuSieIDpmMWtaW292W MXbgDyvFtYgoGMsY3jncc TRMK7uAnvthPI+PHRkIHN 0eWxlPSdwYWRk iS2yOYZqE1o4DcEeZlE8P NmfD8GlvdD7VNWveUNmHB JmwCXBdE5etwzse3ayrgu gIzAwMDAwMDt0 CTq5HYUhwYifToVkBMV1W gY7MHW5bJHkeP2miXrzio vcjA5rTsl+RklOOjwvdGQ +ZUCkYWL6fMjq KPklXTYgpA1aVSMpC8e9X sXhOfX6LFkoN9DlpqR6MM IkzAFsNKSmmHSXqM4rola kt1perpzfAbQi KOEjZPs5RRp8FPXkjGleH tZaQCG2UaO9HKJ0vQRucU 0mpLigjvsmiK7gDxg+TVJ OOjwvdGQ+PHRk XGT8cFybBHepCOWbuC5jF JVuH9r5MhPyCnC7PPaoH2 HnvkI1OQBfgXKzNQArjGB MmG8uuhtxx6ff yjpnFrXfISRsDJk4DGk8X MToiUcfDqCzQKR5AcD1LX K3rCUqfF4lzPpmchxokQ5 wOyc+CVC0OUI5 SC24RM00C3CjCycaeGOkq +PHRhYmxlIHdpZHRoPS fhDVJqHgJeyXbvCW5iBi2 yZGVyLWNvbGxh cHNl (more content not included)... Normal [facility] Coding Summary.on 09-29-2021 Coding Summary. CD:[id number]:[id number] G h0bWw+PGhlYWQ+FZ5WLTS nP22biRSjgH2UL1tLDD6Q ZHCZWKSEYZ1SUU9wxZR3S NbjX8TzhqDc HccnoENdTY73ZRh7GLY1s EdiYFworP3tdDOlN7o0Nu GrBD23dT01NJwfOVKfEqN 3LjZpbjsgbWFy J0lpTnPoyFNzScn+PHRhY mxlIHdpZHRoPScxMDAlJy VhwLtrBF6wOh4hQMMsSZL vbGxhcHNlOiBj q4ijIXUaGRjeOV3kcHcyF 4EiePQ3ENIgx3b9Xp13sC I+JBUvVXQ8sQxtBHlzz65 5FhUwn4taVYW1 ePEbTAlbRLT5B68yk1J0T TCqYXYiMBH2cGB7fP2qxG wqjhshV8GqhADhJoU1JAN 9vLAnmA7lxEui shqbbA4pZjd+N75LIX6AC TVCOO5APsj8L8RkUapccF I+RB39FMSsVB99nOVaaWC te4mwxYb2ZcIl VVBfJFO3qJiyOClkr4IqF AEkZ42afPXry1V3BYXybL lqjCCbFmJrbOS3yN5fHGp pltqfg9nwvwfg Ljmta5fmqz35yC98J69tT VojTGSmCIQ3QAHvUYIfuO wjcu0svQ8mTp4+GRrwh8g qy5nhkUz1YdWq MPVvtlWibJqoTAO3z1ViN v50G2JgoUkiy6MyWby0yc 89jAEtd2L9bPH1SHmrETV fwH8jXGqbAkT3 GZObBwPxqM68aPUdBVhtA e1lrQdceNwsQU0mZQExlj uoKGScdA2iLVDaxRLzmJf cTS2vPDLafvgh f547TiDdWMP6BWRypUCfK 3WbyO0iQgNeHCMiCQRxO2 FxlYWqBOfuO217HWcqHkG 3ESBcayQbA8Kb YRVepWbsUrS0g7R1Sl8Bq 9IwdbepQZR0GVtjWJP0Ue R5BlEaMnA4E7VnSyv4PZL fkHfkYH7wR2Kw TCDfhxkbzvywwKO5PDExK INgnU22pMTdWIupOz5uj8 L5y473CFHrKDHofT84Ct6 udDogMTBwdCBU pU4ibslzh7euolomQvZgO VFfCZy7UXe3VTDvaPptMo ThDUV6AmL2LNE9wTCzfV0 xcNfatwayxO4h Oyc+R73rjL1bYEO0ZGB9c vitRYHrkdYnQJ73IR11Y6 RyPjwvdGFibGU+PGRpdiB rbBnlIX1zFmSf b8wry1GwVUnrB7KrWAOiN JmvKch9AVZkXHB4eZH5fR 1hYVRxHKivl5X5gAY2X2Z lhgZcly4pu9mh RZObBYhiX01rdHKdt5E1P AYphKI5OOSohMzcRtYomT 93Oyc+WWIboEelo1ZoDcz qx1nhr1auxKa1 GuHyNHHigtDrgUanPVJ3r 1WjJu42T13gRPnxPXJpIL ZbSVCkEUQjoYcmyr0nuB2 wIi8+PGNvbCB3 pUC3sL8wSOBgBoZ7QZjjQ 713RnIrqWFnNmkir1flm3 nzxLn6FnUiOCOfwyJkkAf zNIZ5f8OkYp48 I72wLSclEBZxSJDbOMDwA YIodFltph6heC2kHr8+PC 4qg8vrbd04bA40yXG+PHR tGLM6cLqrFTel ICFgeJ5yAKrmFkL8JLImN vQxwV90oVLePHuuIh8baG xzaCynFR3oJVWapoufz49 9EqYkh3eoDQPu oOBxZCfdCIZ2J68bg5Y4A TSbTKIkXVW7fJM8uV5vmS lnbjogbGVmdDsgdmVydGl iMOpbSQltW329 IHRvcDsnPlBhdGllbnQgT bLqMKm3F1KvOlw3ZATvpB kaLJ4skJFoKAqmUy7yzFr wsDgtBK1fVWOq ebhwt830SqEzu4tzJBYaw QSsXCeoLFH9S23iw3G9UL KrDBGzTFX4fSI8aM6kkSo nbjogbGVmdDsg hbScjShvHXgdVJsiB151K HRvcDsnPkJpcnRoIERhdG T4YB22VM90uOQuu6Q9lXA 6F4YrGLGpkhed xjeyxSI3ABUmOFZhtW50G y0boNfcKu6hRBZcVPE8QL JkbQQdW3GltU1sXjGmAKT vAFKeS9QbzBEi LBstZ636MTayFkJ1TGVba lAzO8MsEBSrsNkkShW9i4 T9Vj5EE2O2WF30XM33dYF ja9C0xWY4K9Eo VIDexckoqrwecCG2DGScN VSriV87Dx4usCwlLy6gHT GbSKT1FHVsxRTzT8ZsaD9 yOiAjMDAwMDAw S1UkhWQbXAtrI105BKttI wE8XKHhhzDnH9SgSQCkfH ijCvZ0f2Z3Eq5JUFt9YT0 5CV15uEZvj5K6 fUN0B3YlEVKkhzgkddvby RC5NXEbTEGmuI53Sk4xeT gmCs8vVFVyZCB2LHBxkDB nL7TmtS0eYtZa LTUsCBQuT9HknCNuOFkfK 526WHpiTaA9GMLhnjOcZ5 PoDOZhaMubAcR6h8D9Od9 IHUIoUJ12YAY5 zLK5KP89GW48U6JgZhefe GFibGU+PHRhYmxlIHdpZH RoPScxMDAlJyBzdHlsZT0 xFr4oXCOhZJXn uZxzbIUqJxHgp0mwGHYjC UvgTU6fyWvcV3GaxRG3BS Dab0n9Zp47W09iK6YrkCH +WAXtmAH0vSG4 sZ7zWvShHgZ6HBufT006Q pQrgVKuWavfr5zwg3vnsK u3BdY5UDTadyNvgPyiXPS 4c7XlFe86I06m IHdpZHRoPSIxNSUiIHZhb Ulimb9gvZ1dKn7+PGNvbC Z4aNH4eL9jVyPyRcQ2YDn cN735RfZghVUr Qtlvp2dom6naoVt9DbCiI GBwmoVieSooSKO7r7VbLf 09M8KueTcts9NqOnm7lr8 2jLDcv0O9kIL1 Q9XzKXFmcqcdzSOfjOsvP B8kILPmfbrhQZTtfJ3sXF YoW4y5IiPdAmP0JEpuH6H tuzC5CQEtrJMt HKlxNLO5O57rl7S6TUBgQ SFtJFF0aRX7jC1xeJdwnl ogbGVmdDsgdmVydGljYWw bWVpdM001SZIf tFjiUHHrgB9bAYCqoWZil NmjGN8jVUCopmatXioRTY 0DDjprNKALYY8eVFoqvSC +LNAsNSB1eGer NXgpHPZpdS2tJXAbR7a2J mBuLvH1FIcbD7SsGAQhmy xeRa85kK3vIzSiVoY7MPk nO6WxgqR0HQVe mZEyWMbjQRP9V17zb9X3C NAeSFOmLST7oPB2bL3tvL lnbjogbGVmdDsgdmVydGl lPTrlRMtxE802 MHBqmGurWqP5EpWmTnF5Q EU9D5KyTmv9ZDNezQvtWA 6dkEPzZGgcRo5kuFctcDm rCE6mDRJjyzys NHGbwS6qVUEmnHGecGmtY J5nVWAoatysu122YoZpGX A1WAGzvXMcJ1PoxJ8rKbM fPTOmDZSuK2Ep aQQcNRnxJ431TTusBgY6C QGeupWqJ0GzJYFbfIbaWj M5b7K1Hq5nRfXMAQWzcxv vdGQ+PHRkIHN0 iQkiHBhnPGPbiQ6xUECrE 9g3VoXmNbO4EAsxC1TjDG SesxceLk29qR2aGyJeKwJ 4CFelI0AypwF7 BDLqyEBgTWkvGLA1Z48tp 2H5GKYnFIHbYGT0nSX7yY 1hbGlnbjogbGVmdDsgdmV ydGljYWwtYWxp S187HBCltDycFuQpsWCyD TwvdGQ+SVWvASB1bWwhXO qzFIRfbO7xIMArC7m6JwS eBwY0PCnbH9Bx DBWjgpqhUi27sD6dTuJuA jU8IPrsF7QaycG0VREqwI IlERcxOUC2R55bt3F2AHA zIPMwIYM6rVG1 qC2yeRbieybmjPIcnLttl dAihDnyZHvsTOhmV904PT EutRlwWjjcPeWNae4mUP0 mZjwvdGQ+PC90 iy89R2TqIknsBqg9JPXvB XY3aQF9qC9fUTFoIDqyc3 G4cHN7M3GvfxLpud4ap0u fEGFcPNdfS41e qKSbo6L1UJErrJI3FWRfn ThwZxMbbO54Vgz+PGNvbG xek4SlLsfoq9rym5tnvJa 9IjMwJSIgdmFs dQcsFGS9a5EeEp45G83dK HdpZHRoPSIzMCUiIHZhbG ecuc9ggX0rLs4+PGNvbCB 2xXS1iV2rVtAy XyK9TJpuD818IhYcoVEaE onxb0zbj1mbhIf6ZfPnRL YsfiVxpTkgHXY7z9RdSx8 0D4VntOkso9Qu Lla3hk36sWLgx9Z1dMR7C 3BhZGRpbmctbGVmdDogMC 3rUSJchtzaARYjzW1gCBL yT6k5ZoExTtV8 JEzbH0LzqsZ6QCEqsJRiV DKubPJDfA8svqbxx1vtdy apBrMcPCSbQJp5MRm8NRY saWduOiBsZWZ0 XbY3XSP8kWDbeP0qrJogh kljiA6aDnd+DBl2w4qzgY EdTC1iyII7WE19KH79dFV ll5J8kTV5H3Uv XSPwiidgvyvvcIU2CCPaU PFoiY05Es9ggBlnLp1aOQ SqYNA0VAHydXJlC0HkjG5 yOiAjMDAwMDAw M1QuvPLyYOpjK041TMkwF lL3YEDrhwCpG9UuNFCcmM qfYvE4j3A6Ai6SEZ50SG0 6QT76aWNqu1Q1 tYL8Q6KpQSLkwcgpmhpvm KE0PQGsMDSrwX06Ew1zkD umXm6bODKkFGP0UIKycCH qL7JveT1dMeXa CAZqBNYhU7BfxQZpVFmxA 220MPmwCeR7FAKtikRhJ0 WrMOMjsJskRaP6u8P7Lx2 EDy03JR59AT36 mAFah0W7zZS6I7VkYFXfh fxqltwsmJS6EVBqYCUxcR 34Qw4fzLpfVt7qEAEzDAE 5RDGjmCEeF8Nh yD7nBeRtJZPuCOKxQ7Tno EZwGJmxL910QOqwYnZ5FC DmsrUvL9FdKBRhzMrdUcF 0k8E3Ag4AEJgo kdj4U3DzFcohdDM+PC90Y EIuAF64kLKxyWPwt1nqhK m1WmFlYSKcPFP9fFkoVBf gx1DnMTZrG94p bGFw (more content not included)... Normal [facility] Vaginitis/Vaginosis, DNA Pro beon 09-25-2021 Alissa sp rRNA Probe Ql (Vag fld) Positive Abnormal Negative [facility] Comment on above: Performed By: #### 3 [id number] ####[facility] [address] [place] [address] G. vaginalis rRNA Probe Ql (Genital specimen) Negative Invalid Interpretation Code Negative [facility] Comment on above: Performed By: #### 3 [id number] ####[facility] [address] [place] [address] T. vaginalis rRNA Probe Ql (Genital specimen) Negative Invalid Interpretation Code Negative [facility] Comment on above: Result Comment: Perf ormed at: [facility] [address] [place], [place] [id number] PhD Cee Barahona Performed By: #### 3 [id number] ####[facility] [address] [place] [address] Physician Orderon 09-21-2021 Physician Order [id number]# 1.00CD:127 Normal [facility] Physician Orderon 08-10-2021 Physician Order [id number]# 1.00CD:127 Normal [facility] Coding Summary.on 08-03-2021 Coding Summary. CD:[id number] G h0bWw+PGhlYWQ+RG4QFOQ mS55zjOOibN4CG2wTSN4X BOCZWGGRGF8AZX3adCT2W NjgH7MdprHc ZgoqyUBuUJ25QVe8RJA5y PnzAUrvsE6evNHhC5g2Wf DpGJ16bR81ZAinDSMdCiV 3LjZpbjsgbWFy W2byGmJbgSFhAnl+PHRhY mxlIHdpZHRoPScxMDAlJy FkcYqpDE2eIv0gPZKvFBF vbGxhcHNlOiBj a4scGRXiHCqmGR5tsKzjC 7SrjHY5BETlh8p7Cd03uJ I+TGHjFCE3qZaeFWppg30 4TuIaq0mtGGK4 iCXcCHstDAV2R28pf9R4X DDfVNXmWCJ3uXO7aO6bbB fsunioN7NcpPPvVzR0DSO 9hIBwfJ6xhDev ahabnR6dMen+E16DRO7VM YJWCZ8JDgk5Q1BvVfpkyF I+UJ48HKWpBU94eNOpfFD we6tiyYh2JxOa HOOoVVE7jNayATyxd3SqA HBeY96ikERbg6Y8AYQcaP xuyCFlEhEflDZ5zU8uXMr cpqcnf5ortqfg Tpvpr6biuy79wB76S42sR SsoRZSsNZD3TWAxVJNkpX ezam1scV5kPu5+EXhve6t qx6ozuCx5ZnUy LCCevbGhgLixNOI8p1ZkG j80K9OkzKglz9SzZgx3pf 10iZBql6P7hMU1TBcaCGW tkN2cQJdqZnB6 SXSsQjLrlO93xFBnZFsfC x8hcOtqeMaiNG6lHMYkzc cwBRLdkR8vCFVzrYEaqZn lKT3nVYKenuqt i065StGlHMM4FFObzVCcP 5UknE6lGgKvJSJgXCRxQ4 QnjARhVUjoU389CCigVyX 5VRVghwUfX3Kg DMXrcYdyNuF5r3T8Ef9Zl 4EvyxjyLSM0JQvvTRYoHs KvZtHdMfT0Q8VgRvf1TQT avQqbKU0iE1Hs VVRioownsjiymRD9TIBoQ ZBztU97gHOmNDxgBc2om3 Y0d295SHJqHANaqB50Hi3 udDogMTBwdCBU uG1znqhik8bvcrxfOuXgA YNrDWv8RMh8UMPycHjhCe WzDDI1ZbL2JUH7sMMwuB1 oaJdtcnmmcH0u Oyc+Q07gqR3oLBP9OPH1d vwcDUHndtYqQD86HK85T7 RyPjwvdGFibGU+PGRpdiB zjObhDM8aTrCn u6tmi7TfVLenF6EmTXUgC JheWce6XRDkWFA4wUK2lW 3hAZEtOZbie4W0sMY4D6W tzzJlms0jj9ua WEXpXFtbH67urMAnv4J2L FDgmDV4OIPxtCzmRhUnkT 93Oyc+IASvjZquv4JfLrd zy5udp7imqGm4 SpBaVATtivErwDtxJBR6e 8UaGr50X29pBWxqNURsTA ExFVUsWRRhaHcagx3puY9 wIi8+PGNvbCB3 gKC5iY1vKLAnUyO6PZtiF 947QyQhlIDoKqnlj3txb3 zkoWc2DgJuGVUypgKkbOh dLPQ1i1PtZa31 F87aVGxbSSKnJWHzFCSvI LTyiKfyol3nzI5sLf3+PC 5wd2tqfp97tZ02xUC+PHR xNBZ0aHlfNTpa EIYnrL4tHWvpNrU5MGXbP bRejH30xMGjZUmfGz9nuQ kueQehQZ0yXQFateloa79 8PmKqr8ekCHZs rPFwKVrbWEL6U89na5W6U MXyFUMnDLJ8nRB5iK1dpU lnbjogbGVmdDsgdmVydGl aVAvvDUtyN887 IHRvcDsnPlBhdGllbnQgT sNsDZd0U4DsAdd1CCLhfE umSJ1hmXSdUErlKt8hbEh ggLdtKI7cWVJp qqszd976RjNku6laSPVyv CLvKYtuDIO7C06bp3F0MM BlCCMgZLL1hTL4bK6ecTb nbjogbGVmdDsg viEzaFraGPeaOWbrL870R HRvcDsnPkJpcnRoIERhdG C2MP40II01nTHsp5U2fGD 2C4IfPSYkguzu xpufgUI2RTJvWRTflS74R f0rcPuiYk2sWQReGBS4VO JcyCTkC4TasJ1wUtMmVLE dNHJzQ7KodNGi JHkgK115YPvhEyE5YRArc rSpA4CnZIYhgTikMlN3y7 X8Ot7FC7N3CY29MU08zTO xd3R7jRE1I7Tg ZOMvfmymvjljgOJ5MUDlI RUbhB48Xw0frLmiWe8mBQ FkZCZ9BKOqpLItY6UsrI6 yOiAjMDAwMDAw F0JsjMAdOQlyP088JTbuE wK8DXNecgWjQ0RwRNXqpA siLlX6u7I8Ko0JEWt0US9 2YA41fDLzt6O4 xHP9L7JyFBPrqsklizskv TZ8QBOuOYKvlN90Cc3irJ ovFc2iXCCdWDL8WGIneAR xE9ZjbS8rMnAf JVAeCYPeZ8BcmFAqFLarP 848HYoaZrK3OSLcquGaL7 JlYBIvnWqwKpL1y7J0Ch1 DYHKlVW30EUO8 aHH9RO67PH15U2CaWqrzl GFibGU+PHRhYmxlIHdpZH RoPScxMDAlJyBzdHlsZT0 iMk4kUZAkRUVp wEeptCOxJcEdy6asEGLgH FomEG4plYgkC8DylLI0MY Crg1l9Fc63R00lG5SukWJ +MPLloQA7jLH9 sP2wPrOdIcK0AHzlJ010X mFavLHaByuus1boo5zwnF d7LuL3FKKappQbhVqqZWS 7p0FuYv73M10g IHdpZHRoPSIxNSUiIHZhb Hscpq6bvN5yUr2+PGNvbC H4xJR5tN6mAhSgAhQ2TTn uA249ZmFnnMXj Vmcyz8ofi3cqwKa0FwMqV ZYykiGrxCjzAKA3b0GkVb 89J6FhhTmwy1ObJda4gz7 5yFLki8X3fWK4 I4ZvTINavrfmeOUioFddB U4vYIFqurmtXWGzqV7fTY GuM7s3PlXqSwK7MJxqM0U qclP7RXTntAXz XJckZIF4J22hr8S0WCNzK SNbJWP1yPK8iT6bsGatzy ogbGVmdDsgdmVydGljYWw tKSmsL465EMCv aSftAIOhhQ8xNISibXLko AqeVP0jZRMeccxtJjlLHH 4JXmjcIOKXQH3nUOobsGW +HYFpKKF8wXzi YTudQOLsnF3wYRGcI6i9T mKzBlM4RTenT3McNWQfho ybRi73eX6hEyQvDcJ3OWs sJ1SencS3OZLe jDYvYUizWLD6C94vi6B3J ZVaAFDqKSV1gNM0dO6edF lnbjogbGVmdDsgdmVydGl tSGfxGAfiO834 DMIiaFcjLmP1NpUoIgZ5F VI4X2HdMiu8SCUnkWcwHX 9xmQUmZLjbRe5sdTvvlFs bVG3aMSQjieqx EDKblW0jQYQyoSWpdIloL K9cETQtpkvbr884UgLiTA Z5LGGbuUUbG4RuyZ4sPkC dOFChWTReA3Gx vWMtFCrpX939ZBdbIgX3I UUfteOxS8JpCQOxxFvcYv Q1u1S9Go5uQlMDSIMtkmn vdGQ+PHRkIHN0 jJztSXhaWLLmnS5mSPNkY 5d2IoVzDuO6HCvxN5IrMO FluhzeDy27dQ6xPfOiXuO 6OBvvZ8RodqG2 OASkbSIdBKskDLF8V98fl 6W9CIWiOJMyNFB8sLJ6bY 1hbGlnbjogbGVmdDsgdmV ydGljYWwtYWxp B203MAKthQftQnUvdSBuR TwvdGQ+TKTmKKM8oXdfUN wwKPVqaK8eUUAtV5b9DeI vYmR8QBftV1Yr RDDolbmhRv41wF1kRcZaL lF0VZxwQ3VjeaT0RUWpwD KiDJrbNWP7M48uh2W0IKA tHNEwLPO9dKQ3 cV3ceIshgyyjvUPhuZodg iFlzWrhERyvPHpnN681BT RvcDsnPkFtYnVsYXRvcnk wS5RpJUKIJYdl F7UoV7RykGebmNV+PC90c j19K3PjCqdaOzb9YVPcOQ Q1dGL9xV0tAOHtICgqb3F 5mTS9R9WwbuJc jh0rr9ygKAOgLBdzP33mb JHeq9D5HLDtvKO8RHKjeF xlCuBuzY67Huq+PGNvbGd ee0CgSvxns2cp j9yciMa8CrQzWAVfghGpo PpdWMQ7r9WkBg10L26rDE dpZHRoPSIzMCUiIHZhbGl hcv5yhU9uYm6+ NAFwqDY8kFH9nV7oCrSiM yG5PHesL956SuEyxVLxBt ldx2msx5jkxSy7CdMkBDU gdmFsaWduPSJ0 o5JuJq72A3VcsHjms3FnK ji1jx83sKGex8A7xUW2I1 BhZGRpbmctbGVmdDogMC4 yMDBpbjtwYWRk vU5oAFGfX0e7BrQvBmC1O FamS6VavpG1PCHuiLIbOZ UsxUUFyH5nkunrq9zvddj gIzAwMDAwMDt0 HYh8MKCeqUrqDhIcTVL8I gX6EPA3zDNxrV0qbEkfde zxbQ7nJma+KXl9m0quzUG kGP3axUH1AU65 WF08kCCyo0R8iZZ1D5AiT SJqcxvhngdswXB9CBHvYP QewU08Ct4hwHtuWo0fDDB gDUZ4PSOycDFf V1WswE0rCyPsZIJmQOOuZ 3EkqDJcVKnbA056WOcdKq S9XXFzdfSrZ2XjRHZeiPl xGkS1d9D3Nl3I PH35QM45ZS64aBOex2W7y ZJ7T0JrCPYnfwxaqahblV E3YTQqJREipO22Lk9anSi kZh2pCARcIEQ6 VWOqgFTdZ3VqqV0eJnFbO CCrKLMfB2JfdPWbOTtrI0 02JBdbOnQ4VMChhpTfI4M sLWFsaWduOiB0 d8W8Ot9VUy63IJ56WH66o KJnx3Q1sBS5Z6UtBOZcnc aejzzohKL4RCCiACSkpF8 5Zm9buFmzHa2t KXPgQGP4CXFrpNQeC6Mey A6nAzGiKSPdNVMjC3TvuU AqEDjwP092DHlcTpC1JVN qubMdV4WtGLXr gXawNtQ6p5K8Gb6OAZlgv cl7D1FdVnpeaDJ+PC90YW WjAS72jYJrxAJeu0renNu 9HpQoTNIqSMH0 eWxl (more content not included)... [facility] IntraOperative Documentson 0 08-03-2021 IntraOperative Documents [id number]# 1.00CD:127 [facility] Consent for Anesthesiaon Consent for Anesthesia [id number]# 1.00CD:127 [facility] Discharge Instructionson Discharge Instructions [id number]# 1.00CD:127 [facility] IntraOperative Documentson 0 08-01-2021 IntraOperative Documents [id number]# 1.00CD:127 [facility] IntraOperative Documents [id number]# 1.00CD:127 [facility] Main OR Intraoperative Recor don 08-01-2021 Main OR Intraoperative Record IntraOp Document Type FT Summary Primary Physician: Mark Moffett MD Finalized Date/Time: 08/01/21 13:31:49 Pt. Name: RACQUEL VAZQUEZ Louie Felton./Sex: 1995 Female Med Rec #: [id number] Physician: Mark Moffett MD Financial #: [id number] Pt. Type: A Room/Bed: [place] [address] Admit/Disch: 07/29/21 14:15:55 - 07/29/21 18:50:00 Institution: [...] Entry 2 Entry 3 Case Attendee Kamran PORTFOLIO ARCHITECT, Gurdeep Moffett MD, Mark Cage CST, Stephanie Palma Role Performed PORTFOLIO ARCHITECT Surgeon - Primary Scrub - Primary Time [...] Apolinar West CST, Venkatesh Villavicencio Role Performed Mechanical Design Engineer Products - Primary Scrub - Relief Time In [...] Out Gurdeep Andrew CRNA, Given Participants Zuhair BRADNT, Mark Rosen, Niles VAUGHN, Stephanie Palma, Abdifatah [...] and tissue Entry 1 Skin Integrity Intact, [place], Warm, and Skin Abnormality No Dry Outcomes [...] 1 P (more content not included)... Normal [facility] Preoperative Documentson Preoperative Documents [id number]# 1.00CD:127 Normal [facility] Operative Reporton Operative Report SURGERY DATE: 07/29/2021 [...] condition. Mark Moffett M.D. rj Dictated: 07/29/2021 [id number] Transcribed: 07/30/2021 [facility] Comment on above: Result Comment: Elec tronically [...] Problems Major depressive disorder / SNOMED CT 4307923676 / Confirmed Never Smoker / SNOMED CT 050274328 / Confirmed Added secondary to documentation in Social History. Obesity / SNOMED CT 8092824208 / Confirmed Generalized anxiety disorder / SNOMED CT 71766526 / Confirmed PCO (polycystic ovaries) / SNOMED CT 2885616147 / Confirmed Resolved: None / SNOMED CT 432432979 Physical Examination Intake and Output adequate hydration [...] discharged from anesthesia care. Condition stable. Normal [facility] Comment on above: Result Comment: Elec tronically [...] Problems Major depressive disorder / SNOMED CT 1108154266 / Confirmed Never Smoker / SNOMED CT 086679027 / Confirmed Added secondary to documentation in Social History. Obesity / SNOMED CT 1002757901 / Confirmed Generalized anxiety disorder / SNOMED CT 56283144 / Confirmed PCO (polycystic ovaries) / SNOMED CT 5787195638 / Confirmed Resolved: None / SNOMED CT 022906674 Histories Past Medical History: Resolved None ([id number]): Resolved. Procedure history: left humerus ORIF on [...] Employment/School 09/20/2018 Status: Employed Description: Works at [employer] Previous employment/school: Student Activity level: Occasional physical [...] review: No qualifying data available . Plan [place] [employer] (ASA) physical status classification: [...] and lungs, allergic reactions, and .. Normal [facility] Comment on above: Result Comment: Elec tronically Signed By: Igor BRANDT, Leonel\.br\Date and Time Signed: 07/30/21 08:36 EDT Consent for Treatmenton 07-06 Consent for Treatment [id number]#1 .00CD:127 Normal [facility] Inpatient Patient Summaryon 07-29-2021 Inpatient Patient Summary [address] [address] [facility] Clinical Discharge Instructions PERSON INFORMATION Name: RACQUEL VAZQUEZ PHYSICIANS Admitting Physician: Mark Moffett MD Attending Physician: Mark Moffett MD PCP: Dave Red MD Discharge Diagnosis: Cervical intraepithelial neoplasia grade III with severe dysplasia; S/P cone biopsy of cervix Comment: PATIENT EDUCATION INFORMATION Instructions: KILN TRANSFER OPERATOR - Post D&C, Hysteroscopy, LEEP or Essure/Laparoscopy (CUSTOM); Post Op Patient Instructions - FT (CUSTOM) Medication Leaflets: Follow up: With: Address: When: Mark Moffett [address] [place] [id number] Business (1) Within 2 weeks Comments: Call for any problems. MEDICATION LIST New Medications [facility] 1987, [address] [facility] [place], [place] [id number], [phone] ibuprofen (ibuprofen 600 mg Tab) 1 Tablets By Mouth every 6 hours. Refills: 0. Comment: Normal [facility] Main OR PACU I Recordon 07-06 Main OR PACU I Record PACU Phase I Document Type FT Summary Primary Physician: Mark Moffett MD Finalized Date/Time: 07/29/21 18:05:46 Pt. Name: RACQUEL VAZQUEZ Louie Felton./Sex: 1995 Female Med Rec #: [id number] Physician: Mark Moffett MD Financial #: [id number] Pt. Type: A Room/Bed: [place] [address] Admit/Disch: 07/29/21 14:15:55 - Institution: Case Times [...] By: Dona Farnsworth RN 07/29/21 18:05 Normal [facility] Main OR PACU II Recordon Main OR PACU II Record PACU Phase II Document Type FT Summary Primary Physician: Mark Moffett MD Finalized Date/Time: 07/29/21 19:09:27 Pt. Name: TAYLOR RACQUEL Palma D.O.B./Sex: 1995 Female Med Rec #: [id number] Physician: Mark Moffett MD Financial #: [id number] Pt. Type: A Room/Bed: [place] [address] Admit/Disch: 07/29/21 14:15:55 - Institution: Case Times [...] By: Tiffany Reynolds RN 07/29/21 19:09 Normal [facility] Main OR Preoperative Recordo n 07-29-2021 Main OR Preoperative Record PreOp Document Type FT Summary Primary Physician: Mark Moffett MD Finalized Date/Time: 07/29/21 17:28:47 Pt. Name: RACQUEL VAZQUEZ/Sex: 1995 Female Med Rec #: [id number] Physician: Mark Moffett MD Financial #: [id number] Pt. Type: A Room/Bed: [place] [address] Admit/Disch: 07/29/21 14:15:55 - Institution: Case Times [...] By: Apolinar Gardiner RN 07/29/21 17:28 [facility] [facility] Monitor Recordon 07-29-2021 Monitor Record [id number]# 1.00CD:127 Normal [facility] Monitor Record [id number]# 1.00CD:127 Normal [facility] Outpatient Surgery Discharge Instructionon 07-29-2021 Outpatient Surgery Discharge Instruction [address] [address] Patient Discharge Instructions PERSON INFORMATION Name: EDDY [...] Follow up: With: Address: When: Mark Moffett [address] [place] [address], [place] [address], [place], [place] [id number] Business (1) Within 2 weeks Comments: Call for any problems. Pharmacy Information: You may receive a survey from [employer] asking you to rate your care experience. Your feedback is important and will help us understand what we do well and how we can improve the quality of care we provide to you, your loved ones and our community. It?s an honor to serve you. Thank you for choosing [facility] HERE ARE THE MEDICATION CHANGES THAT OCCURRED DURING YOUR HOSPITAL STAY New Medications [facility] 1987, [address] [place], [place] [id number], [phone] ibuprofen (ibuprofen 600 mg Tab) 1 Tablets [...] CALL FOR ANY PROBLEMS Medication Leaflets: Normal [facility] Patient Education - Texton 0 07-29-2021 Patient [...] cramps. PLEASE CALL FOR ANY PROBLEMS Normal [facility] BUNon 07-19-2021 Urea nitrogen [Mass/Vol] 12 mg/dL Normal 5-21 [facility] Comment on above: Performed By: #### 2 957945, 06964244, 4269827, 8385601, 35614744, 5047080 ####[facility] [address] [place] [address] CBC w/Indiceson 07-19-2021 Erythrocyte distribution width (RBC) [Ratio] 13.0 % Normal 10.9-14.2 [facility] Comment on above: Performed By: #### 2 412458, 00463429, 1770231, 7360051, 45571815, 9991144 #### [facility] [address] [place] [address] Hematocrit (Bld) [Volume fraction] 38.8 % Normal 34.0-46.0 [facility] Comment on above: Performed By: #### 2 921657, 87388762, 3297412, 9348192, 90222733, 9034684 #### [facility] [address] [place] [address] Hemoglobin (Bld) [Mass/Vol] 13.3 g/dL Normal 12.0-16.0 [facility] Comment on above: Performed By: #### 2 525419, 01896315, 7251623, 3463045, 01194896, 8382083 #### [facility] [address] [place] [address] MCH (RBC) [Entitic mass] 30.3 pg Normal 27.0-34.0 [facility] Comment on above: Performed By: #### 2 798266, 60641838, 1233511, 1366809, 04083468, 3425244 #### [facility] [address] [place] [address] MCHC (RBC) [Mass/Vol] 34.4 g/dL Normal 31.4-36.0 [facility] Comment on above: Performed By: #### 2 890033, 04828368, 6460192, 8187046, 86964664, 7179885 #### [facility] [address] [place] [address] MCV (RBC) [Entitic vol] 88.2 fL Normal 80.0-100.0 [facility] Comment on above: Performed By: #### 2 204499, 21663794, 3297854, 1479468, 46419324, 4623410 #### [facility] [address] [place] [address] Platelet mean volume (Bld) [Entitic vol] 7.6 fL Normal 6.4-10.8 [facility] Comment on above: Performed By: #### 2 788949, 85769141, 1162280, 6698127, 16824307, 3574486 #### [facility] [address] [place] [address] Platelets (Bld) [#/Vol] 325.0 E9/L Normal 150.0-500.0 [facility] Comment on above: Performed By: #### 2 228076, 11222627, 1561256, 8126693, 31800353, 8522150 #### [facility] [address] [place], [place] [address] RBC (Bld) [#/Vol] 4.4 E12/L Normal 4.3-5.9 [facility] Comment on above: Performed By: #### 2 065267, 38347875, 6303172, 8817699, 43505558, 4219158 #### [facility] [address] [place] [address] WBC corrected for nucl RBC Auto (Bld) [#/Vol] 8.1 E9/L Normal 4.0-11.0 [facility] Comment on above: Performed By: #### 2 265673, 15101318, 9210696, 9107154, 93200930, 3651315 #### [facility] [address] [place] [address] Consent for Treatmenton 07-05 Consent for Treatment [id number]#1 .00CD:127 Normal [facility] Creatinineon 07-19-2021 Creatinine [Mass/Vol] 0.8 mg/dL Normal 0.5-1.3 [facility] Comment on above: Performed By: #### 2 375177, 78503270, 4540891, 8009429, 94170810, 8339923 ####[facility] [address] [place] [address] Lyteson 07-19-2021 Anion gap [Moles/Vol] 11 mmol/L Normal 6-16 [facility] Comment on above: Performed By: #### 2 006200, 77389221, 0028251, 0036164, 78166137, 5195063 ####[facility] [address] [place] [address] Chloride [Moles/Vol] 103 mmol/L Normal 101-111 [facility] Comment on above: Performed By: #### 2 828649, 71921787, 3126169, 7073911, 18383459, 1507445 ####[facility] [address] [place] [address] CO2 [Moles/Vol] 26 mmol/L Normal 21-[address] [facility] Comment on above: Performed By: #### 2 528628, 85140537, 9000238, 5808310, 11905212, 0800564 ####[facility] [address] [place] [address] Potassium [Moles/Vol] 4.3 mmol/L Normal 3.5-5.3 [facility] Comment on above: Performed By: #### 2 516128, 17543518, 9166956, 4051326, 18458398, 0277827 ####[facility] [address] [place] [address] Sodium [Moles/Vol] 136 mmol/L Normal 135-145 [facility] Comment on above: Performed By: #### 2 449735, 17302437, 5016229, 6940822, 93906763, 2331355 ####[facility] [address] [place] [address] PT & PTTon 07-19-2021 aPTT Coag (PPP) [Time] 33.7 second(s) Normal 25.1-36.5 [facility] Comment on above: Result Comment: Hepa rin therapeutic range (represented by Anti-Factor Xa activity of 0.2 - 0.4 U/mL) corresponds to PTT of 56.6 - 109.0 sec. Performed By: #### 2 045650, 12511843, 8872791, 6892479, 21896310, 0628992 #### [facility] [address] [place] [address] INR Coag (PPP) [Relative time] 1.1 {INR} Invalid Interpretation Code [facility] Comment on above: Result Comment: INR results are specifically intended to assess patients stabilized on long-term Anticoagulation therapy suggested INR?s ?Less Intensive Anticoagulation? 2.0 ? 3.0 Conventional Range 3.0 ? 4.5 Performed By: #### 2 934352, 07157896, 4309915, 8323102, 46572024, 3331759 #### [facility] [address] [place] [address] PT Coag (PPP) [Time] 12.8 second(s) Normal 10.2-12.9 [facility] Comment on above: Performed By: #### 2 595308, 47304788, 3582801, 9105442, 62090249, 9221512 #### [facility] [address] [place] [address] U BetaHcg Qualon 07-19-2021 HCG.beta subunit (U) [Moles/Vol] Negative Normal [facility] Comment on above: Performed By: #### 2 0980903 ####[facility] [address] [place] [address] eGFRon 07-19-2021 GFR/1.73 sq M.predicted among blacks MDRD (S/P/Bld) [Vol rate/Area] mL/min/{1.73_m2} Normal >=59 [facility] Comment on above: Order Comment: Order added by Discern Expert. Result Comment: eGFR is race adjusted. AA=. Performed By: #### 2 509279, 69966614, 0566871, 0772788, 15780344, 1542906 ####[facility] [address] [place] [address] GFR/1.73 sq M.predicted among non-blacks MDRD (S/P/Bld) [Vol rate/Area] mL/min/{1.73_m2} Normal >=59 [facility] Comment on above: Order Comment: Order added by Discern Expert. Result Comment: Calibration Engineer lizbeth kidney disease could be indicated at eGFR's of less than 60 mL/min/1.73m2. Kidney failure is indicated at less than 15 mL/min/1.73m2. Performed By: #### 2 320861, 64149442, 4238119, 5320008, 33256943, 6149051 ####[facility] [address] [place] [address] COVID-19 (MC)on 07-18-2021 SARS-CoV-2 (COVID-19) RNA AYE+probe Ql (Resp) Not detected Normal Not Detected [facility] Comment on above: Result Comment: This test result should be correlated with clinical presentations and medical history by a healthcare provider to determine its clinical significance. This assay was performed by a reverse transcriptase real-time polymerase chain reaction (rt PCR) method on the [employer] system. This test has been authorized only [...] or revoked sooner. Performed By: #### 2 [id number] #### [facility] [address] [place] [address] SARS-CoV-2 (COVID-19) RNA AYE+probe Ql (Unsp spec) Pass Normal Pass [facility] Comment on above: Performed By: #### 2 [id number] #### [facility] [address] [place] [address] Specimen source Nom (Unsp spec) Nasal Normal [facility] Comment on above: Performed By: #### 2 [id number] #### [facility] [address] [place] [address] Consent for Treatmenton 07-05 Consent for Treatment [id number] #1.00CD:127 Normal [facility] COVID-19 (MC)on 07-15-2021 ADMITTED TO INTENSIVE CARE UNIT FOR CONDITION OF INTEREST:FIND:PT: Unknown Normal [facility] Comment on above: Performed By: #### 2 [id number] #### [facility] [address] [place] [address] EMPLOYED IN A HEALTHCARE SETTING:FIND:PT: Unknown Normal [facility] Comment on above: Performed By: #### 2 [id number] #### [facility] [address] [place] [address] FIRST TEST FOR CONDITION OF INTEREST:FIND:PT: Unknown Normal [facility] Comment on above: Performed By: #### 2 [id number] #### [facility] [address] [place] [address] HAS SYMPTOMS RELATED TO CONDITION OF INTEREST:FIND:PT: Unknown Normal [facility] Comment on above: Performed By: #### 2 [id number] #### [facility] [address] [place] [address] HOSPITALIZED FOR CONDITION OF INTEREST:FIND:PT: Unknown Normal [facility] Comment on above: Performed By: #### 2 [id number] #### [facility] [address] [place] [address] STATUS:FIND:PT: Unknown Normal [facility] Comment on above: Performed By: #### 2 [id number] #### [facility] [address] [place] [id number] RESIDES [facility] CARE SETTING:FIND:PT: Unknown Normal [facility] Comment on above: Performed By: #### 2 [id number] #### [facility] [address] [place] [address] Consent for Procedure/Surger yon 07-14-2021 Consent for Procedure/Surgery [id number]# 1.00CD:127 Normal [facility] Physician Orderon 07-14-2021 Physician Order [id number]# 1.00CD:127 Normal [facility] Physician Orderon 07-13-2021 Physician Order [id number]#1 .00CD:127 Normal [facility] Coding Summary.on 07-12-2021 Coding Summary. CD:[id number] G h0bWw+PGhlYWQ+OB2GOCP pS90meSMyzF9IX0yJQD2E GPCOKVTCVM0PSC6xqJW3S NhoR0VieqNg GkkcwGHsKI38FXj8YBB1f BndNIislO3xzTFeP2n0Cf EmMZ35jX68SIruCUYfHgL 3LjZpbjsgbWFy J8qxIjEhrIOnXoj+PHRhY mxlIHdpZHRoPScxMDAlJy MzoGjbRP9fNp6mVZWnESB vbGxhcHNlOiBj r0stXYTrBOoxEN7ytZwzV 6RpuHZ4QJHey6o4Nh38eB I+VSSrULD6pCdlFBfgy16 4RcQbj1gpICM9 aZXmNQztTQE8N53do0Q1T YPuDZCyQMJ6zUH8eD0jtQ vixrnbZ6CluESdDmK4XOX 0kBLakV1nxGuo olhvrX7cAub+K67FLX7UL KSXQA1YSwp9C1LrXtercP I+OU63MUQnYS13wTJxiKJ xk1amyHm8VnSc SVNbZBX0yIriEAufa3MkK HAsP73vdRFem1Y9GKTyjR nwqPHdKzSvyOL0nT9qAWy dhqblq7ycnqvx Usyqz2eqhg17pB29W89kX ZlbSXReFNU3OPDxUPFrgD pocg3bnL1oZo6+BQtme0f qd7xcdIe3PcXg YXPhwmBdpRivTQC0e0OcS u34B3GrbFxqz4VaBja7nq 81fQHvp7L9aQI3CAneISK llU2tZZkjKyG7 KTHpThQymK74bRXsDZiyN p5tlFhwbGnzYO3tOYKkhd zlZKQzpX1cQVXriDUbqBy aIF7kCNUmzjlw r186WiFdLET3PUDnjDEtC 6AibJ0qLfKwUMJfQUTiW8 TgzFKzMYekY905SIzlSaG 5ZJQrjdCsM6Qn DWJmhJyaHuH5i8Y5Ux0Kx 7XkeerxJKU8BDvxQQQlNn N9GiScQxQ3L1YyHck4YRZ hyPzfUQ9gY0Vv BFHtdvvlpmjkqOD8UEQkS XOeiB44zUIsOGyuDy0lz6 C8j233BSQeFMNffR70Wm9 udDogMTBwdCBU yY0qrywlb6nztpzlVtOnY XUoQCa2VKf0FLPpdQicCc BaBTI8TyP4UWD1qNNtfT9 xnEhkrwqvyL5u Oyc+U25ezC6aRTD1JEH8w yfzIIQirpSmUZ98NP96I6 RyPjwvdGFibGU+PGRpdiB yeAtrHB3rJwYz k1diq8LtGRxrD5LwYHIyQ JucClu1MKLnQEG4sHP9xW 3rUBLvFKnhh6G0dXZ8F0M xntKgny0av5di QWYoQIkiS84jkJBaf5E9K FTfvDB8MHIbxZazKwHiyV 93Oyc+QMZaaOiuc2XpDqf bo8nhz4qxcCx1 TsTlZSUahbOdxFlzKGH9h 9WaIb07F10eLKrvRSDiNC HhHKPyYRJuaNbzoh1ooD2 wIi8+PGNvbCB3 yWD5wA7lJNGtKyY5IQcuE 720HqRdlFVwIqsne5czl8 nopJb0SiUwUJJujdJvrAf vUTK6b7VtPm53 B47kCKvxFVEuCJXbBVOoX QQbnGlmue1qaA4kOm2+PC 2wc5wxgq72fT21cUW+PHR wLPK5dPqvLQnu PEJkuL6wXQaeXiT9HPJoP pZlfV49yGZvBImhXf4hrD doeOkhHD7lCDRbqgwyb35 1CmFpn4ruNCLk fNAtJCppYJH3F65yr8C2Y MVcVTRwAAY1uNG3mF4mpG lnbjogbGVmdDsgdmVydGl eDXelNYjeC434 IHRvcDsnPlBhdGllbnQgT qQbWNs9F6FfWva9KCZrkJ zkKU9xkXSyRWaiGi6xwFi aqDydBG0sABQk nkwml197RjVwr7jaHYWtn NKlGLhpDKR4M65ev8T1UV JbMAViAGP1fZF2jH9zoIe nbjogbGVmdDsg jhWewQnzUGiuSFbfA571F HRvcDsnPkJpcnRoIERhdG B4ZT41LO88yXBth1Z7tIZ 4O8LkXXSwnarn mdouoVE6THSyCEUhzQ26C q2sfPpvBf3lGBWdBHX1TE IjzDFfF4BhsK4gXpWtQWM zILGkM7JfvUVa TAipY352WPtpTbL1FLGog sXqE5ZyIKYypZdtPuO6v5 A0Mn9UP5C2WX69NX04fCV qz5B2kOI3P3Yt PNVohprptsyjfZB1MXKaM WKblJ30Zc2tnEvcRa7yLC BaSWM9KBYskYLnP5KlyX2 yOiAjMDAwMDAw C0FgjZUtIKvvV475PVttK rV3CRUuxwXkS8TiQTUgcU fnGkL2p8L0Ls5XODw6IN5 2KZ12sMFof8R2 eXJ9D5XjRSCcbpxowrdce II3VFQjZRQnfO67Xn0ymY fxBw7pXPAqLIC8ABOokCW cS2OtpR5xEwMd AHSlRPWoN1McwJVaFFfdG 668QUamVyF3IGTvnqIyX4 DpWEWqgCsmZhK2d6R5Au8 YVSXjZI84UWX3 zCF2JL20EM19P4ZfNjpsa GFibGU+PHRhYmxlIHdpZH RoPScxMDAlJyBzdHlsZT0 cVi5nXJUiZBSu iHodsGCnByQnv3jiOONdT QteNO2esXtdC3DxnGU9OR Kun6x8Lm99D98sM7OgfME +HKQfaWE1nNR9 qB2tCgMxGfN2OAjxV080F wWmbHUzOzpod9rbe9azdD g1QfC6CLSvpkSzuWoqYQT 3y9UaAl33P67s IHdpZHRoPSIxNSUiIHZhb Tzkvd5bbP7pGp1+PGNvbC Z6aUL6pQ8cLyMvSiM1CRj pU204ZfQceQXy Rcdnr9meo2xftKi9UxOcU FRzyoMkiGyhCNI5r5QuPr 31D9DipLgjr6ZeEih1vr8 2tILgc5G8oBM0 T2YnITFwrmhjcRLgsNrmX Y1rKBWrqksxGJYdhH2cDJ QlU3t2PiSmGfM2ZNigT5Y szwJ3NOLiwIDa NZfjTJU1U12ym0I5WLQaK SGjXQH6vTD3bV9ktFmxdr ogbGVmdDsgdmVydGljYWw cHNkwK278GVRm mMvhVJBrgN2cLDVbtHCiq JkaGR6uKOBiughnZqnBWZ 9PIhlpGJLKKR9vCLldxKN +XRHgENX0tBpa CLrrKLWpfE4iARFcL7y7G kJvFzM7MJsaO5OoNMSqby jxCq56uZ8pOzJmDpL0OIv bT7PkvhV6CEMy nSQcEHqnTBI4K78hn8H9C DSuSHAxIJC9kYW9nW1qnC lnbjogbGVmdDsgdmVydGl aSBsuVEzoD479 TIVhxEwmJsG4SvPoVnQ6U BV9V3FmUbi9LIBwwZtoRA 4qoXWeLXmhFq5iqXcrsUs vDH7iAQFpnapi MFIckO7kTKTaiPDebZabW O3qGSRmvdxsb505DcTeGU G8JZHpqYKiJ9QuhI6qHuX hXBPxZKUdY8Py wNCeYAygM794PFqjTkY3R NWgpbZpL1KgOHWheMqtAl Z2e0K3Og3jKbNNTSSmqsc vdGQ+PHRkIHN0 nPrsRVkaTSYkbP3fIERbA 7c5HmMmTsV3WFtrY5RvJQ TzeudwFa55yV4qSnQyEiD 7FNxuS1YkbzM7 HWPshTCdXOwlTXC6K13pj 2L8HJRiNUWlBSS9zSD2uN 1hbGlnbjogbGVmdDsgdmV ydGljYWwtYWxp D351GOVmxVirAiBufJFsF TwvdGQ+GXLxAIZ7qKmxBC lvZSZsyQ5sANVnV2g3CcB gVoB0ZEjzX8Iz LBUjjzzpIm97nC9yOwDyA yW0SImnL4UntlK9XYUsbY YqBOlaQHE3O90oy1Y6KRP mLBKlTEZ0pYK0 gR9bpHqfsnqrmISghNgxe aGxfQbsUXtkDHggD769EO NlwJuhQwdqXjZCjt0hYY6 mZjwvdGQ+PC90 yh78G1QnBrmcQwq3RJLmR IT3mCU3aV8lZHFdRMsci7 U3vWK1P6HjbaGzfe1gj2r dQKYmLNrrY79d vKWpz4L4QGRtlNO4ZNKwb FydLmArrS01Zzk+PGNvbG zza1QsNxwgb7fco7inpQk 9IjMwJSIgdmFs oZtdLVK2u8JzEg36C68vF HdpZHRoPSIzMCUiIHZhbG hbtj1mvI4eWc0+PGNvbCB 9pPG4fT2oLqKb XmR7LTdmW482NfPleGGjM idli7cuf0mqsZa4DhRcUD QsetIbfKviKIM6j6VgGq5 2N7UrlSvkt2Xl Tpr5nu88gVBsk1L4lIR2D 3BhZGRpbmctbGVmdDogMC 3aAJHmqnbrZYMwuL2sVPK cW4q0EfFvTnJ4 LFmiE0UydvS2GXNwsXKoE VDueKLUfC6mxsetg4kqse qbBgOjVVNdAWx0YZb4ZPW saWduOiBsZWZ0 MrY9DYV7pRXxlS0wtOrii lplmP5qQpu+MCd1m7fumY NnQR7fbAW1VA89YJ61qHX sj3E8nHM6E7Uh ZYOmcelojtapsSN3GBJdA JJcyJ83Fk6dxAadCo3sRH RkDIJ0FANvsJNnT4QzrH7 yOiAjMDAwMDAw R2TvvKXjNQayT951WPfpA tI0BULwzsKaH5KnNFVzrW bqAzU1h6E8Pq4RQY23DS1 5LJ89zSRha1G3 gHL9G6GfZSEifapfnkfhe HA9AQSqDRLzjI26Mz3xaR chUg0vTDIuDXI0RUGzwDI nF3NooG6fUdAh BYRhTABsF6DcvNWsCCneF 850CBhzOsD6FUVxkvBkZ7 FhKFNkoUntEcG2g2R6Yj2 AWw03JF32FF55 qCIix5M8dXN2K9NcNSKsl bmeaeszmDZ4ROAfGUNpzQ 60Dn4huCzlAo2yLQCvRND 5CICsbSQbP3Vi cW7yHtMeILZnDRBvQ0Rfl NAlVFrxV273KTzuTrM9CA OtunBeG2MqORGlgEyjCvW 7h6R8Ou4AYWhb yjz0V9XzVbkefLY+PC90Y SCuPW39rRLpgVLnc4zehZ v2BxCtGBNlZOQ9sPvhXAd ol4JpYHWiJ66r bGFw (more content not included)... Normal [facility] Physician Orderon 07-05-2021 Physician Order [id number]# 1.00CD:127 Normal [facility] Coding Summary.on 07-01-2021 Coding Summary. CD:[id number] G h0bWw+PGhlYWQ+FR3AATE aF81ejGNtvB6GI9wIJK4Z VNCOJDCEGL2PXN4kzGA9V TheV6OzmkQd RsbybSFrST35UHb5UJB2k TxqVEyvcM2szWGrO0m5Wh BtQF89xC97FWsmQPRaPjZ 3LjZpbjsgbWFy I9ruFuGzyUCrXoc+PHRhY mxlIHdpZHRoPScxMDAlJy JluXtnRJ9tXo2oXSPuCXO vbGxhcHNlOiBj t5vqJXPnLJvbQQ5acYyoD 0YmpSL6LWWso3r7Na07uA I+CSUnGHI7dAnxAOupa05 7QcWeg2daKUY5 yUKvLZxnNLM6R97fz5Z8B HHoSFXtRMH5gXE8tJ2vgW cnovxwJ3XpcXOrAaI0EKB 9sWKfgE1yvZos rtflcI7oIqh+Y68BWQ9HF EQCLQ9BPej0O7GrKtsdmW I+BI69AJOwTS04wFPtpMV rj9desCh2BfRe SBGvBLK4yQdwOGhrh7RjY OTpS70ngFQfz9L2IAWmnM bbgQPgOnVwjHZ5lL5hCTu nxazxr5xaxayc Iizxf4mcrw09xG47Q82uE VrcANPcNZQ6SLOdNLIyiH emzt4elW3xUu3+LKvxc5j fa4vfvQu8BaSo NXHnmiWojHzwIDU1v5ApG k85W8ZdrWghd5JzMwv4tq 66eWAdo2N2fUY5GFltHBT nuM4jIRisCwG5 AHHfEcAseA65gENuKJvtX u0hhTnriAfgCO1lBCVfna cwEXOvgK7qCUZtnODtrDy sGW2tDZJmhahb b978BrAcXAQ4GQNssFXmL 8VtlZ8lBtYqLQMzHERrI6 MbsSWuTHvdG040FQqhWeS 9YTBqmqRvT8Za ZEVvpMrwJrH6h2R1Uw9Kj 9FanhdyVYN0YXrsMADxMs G2RmGeLlF1W9BsHuj4AGE jnZtqLO3mV5Jc FLFtajbmntrmkOC5FHKrP PSjoK05hBSjRGnyCb6ek6 K7q372ZLLtPIIcvV00Un5 udDogMTBwdCBU vV4abusmi4rcircfUcBiV ERiNPl4AHa3FIOegFmvSj MdTJI3SbB0GKK3dGHrbD1 qgUpcopdmyZ6n Oyc+Y86ywR6nORF5KLW7x cghNBZzfsFkZB29BM42X9 RyPjwvdGFibGU+PGRpdiB tjXipCC8tDsGf d4wea7AeBAtdA5BuBODiF NghOnd5VQSuYPI3xTG1vT 3pZZBnDTlqz1M8jIX8W3P dquHmho0pa6iv YHOrAWnjJ77qkNDha9E3H YTwkFK9CQBbiUrwDmQjdD 93Oyc+OQTrqZnjx4PdUsv sn3kjp2slbVr4 ItAvLUWbkiJxqYdgQHU2m 5TxMq88E54nHFlzAZJrTI FhRPZpIJLnsOsocn1ilU3 wIi8+PGNvbCB3 xCL0gW6aMDSrMvY1PRcfL 754KtApiKMxCcmqn8vfv1 cxxOz6UnEnTSOxraCknXi bGQG7f4ZxQq30 I77gADlrOQJcOMMcIABaV TYmpSkmdf5hxQ2cDa1+PC 7gq4cxfs95aG36uKO+PHR iEKQ2zKciXZzp WSYpfL3kRUwhFeP4ZHAgM ySurP42kKNsAJwzKw2nhZ mmlMpbKN1aBDWdqoybv29 1LzKge8udNXDy iMQzZPrvYTF1B35nk7N1J NXmMHZsJOS9kUY6qO9flZ lnbjogbGVmdDsgdmVydGl nEQqfOAzhB789 IHRvcDsnPlBhdGllbnQgT oOyMUi9V5WuWne2IGDnxV imIK5efBOiLJwuRl9uzIl jhAnvLU7qZIUl mnqyp306JjEig2foNUFnj YVwUSlxHTO8E80ye7R2EC NuKOVgWOR8gEQ6eT0erQi nbjogbGVmdDsg uwPwyCbjGDxdKOarS500I HRvcDsnPkJpcnRoIERhdG T6JV89FQ33cAAbh5C6kNH 7A3WlXGEttnhv uvrvaSA5XJOrCBAtlB91X b0wtVrvVh0wXFEnYJE9MQ HifPMpF5MwgA8yQeWeTIA lPTXfD6CajZDn FPppR214HSvwBtB8VQDau oGfE1IuDKMcbNzgTjF6e1 A2Dp5LW1O4SY15RH96gMB ym7L7iGX7B4Xv DRVbwjxgbriwqAO6RZPfL UHlsJ86Ok9bwDchOy8uEJ RfATG7MOGmtDOjA3ErfS6 yOiAjMDAwMDAw K1JruWBvJCtuY603CVaaW zZ8DIMoazZqG3LiERCceX goMkL0r5D8Pq9NXSp3QA8 3NB23rMEzc6W4 yRM4K2JqHVXhwjdrsclkd HS9QGObIUKotS36Di1awF hqPh0kJMSgLTX8IFZceLC tA4UthE9dRhJd JVQySISnA3OrlWSiGExlU 843QFwnMsE4PNFaozOmD7 FfCCBncPugFiO1b0F7Rt1 HNJRwVH04RWK7 rUY8NU18UA83U7IcKmapl GFibGU+PHRhYmxlIHdpZH RoPScxMDAlJyBzdHlsZT0 aZh0vHLVbYGUl wDfqcYZxHyHno5rtCMHkN BcrGG1yyYynH2BwzAC6RN Wrb9v7Mi75Z45eD6EbiZL +NSDdbYX0dOQ9 jF0iLrThUvL3TVzyQ209K bDbtRYgXgpil8tvh8ytuE b0QcW7FDNnfoGyuUteJKR 6e7SuUu26X33l IHdpZHRoPSIxNSUiIHZhb Vhpcl5xxE1rAl4+PGNvbC V5uOL1lG1tHoEwSrT8CVk rG346DcMleLBd Buycd1gpx0truXo7VkDyB ZZbieIewRvhOAE2r9LiUy 08X1EekCykz1SgAcs5gg5 1fBCcg4J0zIS6 V6AcORJuiwetfWWfhMhwL O8oRHQwdzpdROIqaW8fYT HjC0r4YqIsMdP7ABlfZ0V zazG7MSDszAMz RJgaTHY6E88am5Q5SPGnL WXhWUD6vME2hR8stJktek ogbGVmdDsgdmVydGljYWw lXElcL145GEDw aNawAIOruA3kZOYuvANfq KdfBG1dQJMoslqxCilVIJ 3XIjosKOKIQG8cOGvexJR +LFEaIMD9cDma EUqfSHDiuQ5sDZXtG9d4R qZpUcL6TSeoP3PkNQXykm uwCk39eV0wHlJgBaD9HTj cV0JflpF4AQMh pBIuJHyjFPN5Q51qm0P6S IVwBHNmUOJ1nTZ0iZ0jtB lnbjogbGVmdDsgdmVydGl iQNmjCLbtB191 HGIibImwTiE0HkEbAvG3X UB2L0IbCdc3TJEgxXxmKN 0fxJJqCYdeIy7fiJnjmTh gSW6tLFCsgavh OGOpeT1kKFDuyMDxyGqhI N7fQPZvymigh400GqXrRA J0YLFpiXExF8IgqU1pCcC iSNRjZJEyV1Wf kTOhXIztH995TAawUuI7S HSlccJvM6HaZQSakTigQg Q5s6H0Nl7bHaPWLLYwswh vdGQ+PHRkIHN0 pNcmBLliMVBikZ2yLISsG 4b0LuVaWpD2AIxyY4FsLM EcvbgeVs80xQ5cMyBwEtF 6EXriO9JhaqB9 IGCyoVJzRXzfWNC3D28mc 6T2BMSyANNeISR0aIO7mX 1hbGlnbjogbGVmdDsgdmV ydGljYWwtYWxp I620HYNzlFuxSvCueJWrQ TwvdGQ+GFTqTRC5fPgoGI kiRUHwvJ0sZEJxS7p1TuH fItD9ZNcnB0Zk AXMralyyFn06dA1yOqHcT oI2GDyjE7WkybB5SRKcbA LxBGwlNHG0W83nx3E2HRE kEIQtUOK0lXO8 tK6eoHfssqfefVPkpJdmz aAucKeiOIqkFVdyC045CL OhuHpnEebjFrVJdc5jTF4 mZjwvdGQ+PC90 so11F4NpVdefLtw1BVZvQ NZ9aYY3mQ6gDZWwFCvbd8 S1fYG6B4HuqvNylx3jp8t pKBVaBGwcR95b fCFyh1D6RYDkvOO2KSAcx DnfHaDojC74Yff+PGNvbG jir8IeXmhzj3mci0abrDm 9IjMwJSIgdmFs lJicFMT4a4QpPs97G89xA HdpZHRoPSIzMCUiIHZhbG czxr8xmF4jXf2+PGNvbCB 9fCO9dK4aEqVb TwW7ACizE245ZfYfcGInZ kdbz8tmf7atgXg4OkUwQZ XssqRlrHpwWJA5u5LuIm1 8P8MfoRpur8Bf Its7qs97fTHsl9U0tFH2V 3BhZGRpbmctbGVmdDogMC 5mQUDqoehpABNjrE1gYZL nF5z8LeHlQhD6 KTagT2TegjE3HREhdOMsR YEiyRTVsJ7fbsnmk5vfgt aqAnJwLOBmLNv2YBa6WCY saWduOiBsZWZ0 TtD5CKX2gJUclV6koLopx pmoeZ2kQvn+BXp2g8zurZ GbVK3tcZD0IQ44LT08oMA mj4W3pFS0K0Ld JYDyzuttsbfuwUI9JFMkK GHhtI88Lm1puDrjWa0eKV BrLIL7GSAkbJKfH1HlmO3 yOiAjMDAwMDAw W6FpaJIrRGixS748IRcnA xJ6IDDbapShA0FiNBHhhI naFlX7y0O7Gb7BNE41TG4 4MW66jYNca7S2 fBQ1I6CeMUBlpcolnavhz OQ3OZTaHYFrfG41Ug9pgL kbRa9mSSUqRSS3FAPwxRJ dP7TruG8nOxFz FIAqWEKcL9KvmDWvLVmrA 838ESrmPoV2CRDuriOeP3 QpDQXciGstDrE5d0P6Yg0 VYi96OR28DM87 mJIgl2F5eEZ3W4WoFUGbj edlescybJM7FNGcRNGlrB 42Pp9auQimQu6xJBRdCSC 0ZYAkxULnP7Bv sF3lMpIdEBYiKALuN1Zjs YRaVRzgY522KAnqKiQ0ZW NuztSlZ3QoRYUdnPgmQhH 2w6N0Ba3NBByf lec6Z0ZpCokotTL+PC90Y ZMnFX32qHDvmHBtm5vpnJ e5FiUcMYGqKFS9sRbfIOw fo4CbBTWqD44t bGFw (more content not included)... Normal [facility] Lab Miscellaneous-LCon 06-28 Lab Miscellaneous COMMENT Invalid Interpretation Code [facility] Comment on above: Result Comment: Test Ordered: [id number] IGP,rfxAptima HPV all,16/18,45 IGP,rfxAptima HPV all,16/18,45 Note [A ] WB TESTS RESULT FLAG UNITS REF RANGE LAB DIAGNOSIS: [A] 01 EPITHELIAL CELL ABNORMALITY. ATYPICAL SQUAMOUS CELLS OF UNDETERMINED SIGNIFICANCE (ASC-US). Recommendation: [A] 01 Suggest follow up as clinically appropriate. Specimen adequacy: 01 Satisfactory for evaluation. Endocervical and/or squamous metaplastic cells (endocervical component) are present. Performed by: Re Mederos, Engagement Specialist ([facility]) Electronically si... Kailyn Jay MD, Pathologist . [...] Low,>-Panic High,A-Abnormal,AA-Critical Abnormal Performed at: [address] [facility] [place] [address] Kailyn Jay MD, HPV Aptima Positive [A ] =G Reference Range: Negative This nucleic acid amplification test detects fourteen high-risk HPV types (16,18,31,33,35,39,45,51,52,56,58,59,66,68) without differentiation. HPV Genotype 16 Negative =G Reference Range: Negative HPV Genotype 18,45 Negative =G Reference Range: Negative Performed at: [facility] [id number] MD Misty Avina Performed By: #### [id number] ####[facility] [id number] [place] [address] Physician Read PAPon 022 Pathologist review Ren (Unsp spec) [Interp] Note Invalid Interpretation Code [facility] Comment on above: Result Comment: TEST S RESULT FLAG UNITS REF RANGE LAB Clinician Provided Cytology Information No. of containers..01 ThinPrep Vial Physician Read Pap Note 01 Performed FLAG LEGEND: L-Low Normal,H-High Normal,LL-Alert Low,HH-Alert High <-Panic Low,>-Panic High,A-Abnormal,AA-Critical Abnormal Performed at: [address] [place] [address] Kailyn Jay MD, Performed at: [address], [place] [id number] MD Misty Avina Performed By: #### 3 [id number], [id number] ####[facility] [address] [place] [address] Lab Miscellaneous-LCon 06-16 Test Code 337210 Invalid Interpretation Code [facility] Comment on above: Performed By: #### 3 [id number], [id number] ####[address] [place] [address] Test Name pap Invalid Interpretation Code [facility] Comment on above: Performed By: #### 3 [id number], [id number] ####[address] [place] [address] Physician Orderon 06-15-2021 Physician Order [id number] .[id number]:127 Normal [facility] Coding Summary.on 12-22-2020 Coding Summary. CD:[id number]:[id number] G h0bWw+PGhlYWQ+PS8GSPW hE63lwLAlhS7GX6pRWI8N KHJKVUKJOW8CWL6ekGM8B AuxW9IcrzZv WnujnMRqOI32LFm5NFH6a FukVTsiwK9ybZToG1n1Zi VdTY99dG02LVtpSAYfBuN 3LjZpbjsgbWFy B2rbQiOixLHaEgg+PHRhY mxlIHdpZHRoPScxMDAlJy XqfBwyOJ3cRw7xEASbWPM vbGxhcHNlOiBj n4wvQJLvYLnnHP4ilBmzF 2AiyHZ7KMRtz8f7Hf60yR I+QVAaGLY3qKbbRZckv00 5SzQxp1gmSHS4 xZCdZHojYXU0H72hj3Q8E GKfEFDdJAC1eNB7uR5fhB tgrclxZ7EefVHvNmZ1XPF 9tIVtuQ6ggWpz erlufC8lFni+D87TAT4LU DSEAG1BJym5K4TlLlavkX I+LR46LJZiEI00pQPrkCT cf5msqUr8QuNm LTTnETO7gUddMPidn7BbA OTwO18viPFkv0K1PFIsoG mpwGRkRnCqjYZ9dT1vGLl xjbbyh8gxhmwn Ysjgv9ybol59xC65U62cQ ZfbSFJrWUK1CHHpOTFvzU eoew8dxX1hGg7+TJjzt3i kk7txeCw9IbKv UUXtroYcrHtoXEM2e3TsS m51U7LtqKzwt9NyMvb4pv 13wZVbq7H3zUJ3SBdyPKC idO7qOQjyBaG8 KICcGiYhrN68tQRmJTsaS n4tkNydvEpcIE4fISVeyv qxYUSqrL1bPXAuaRPjvNv iAR9nGPJpcclk v389JrXtFDX2ZYJmtFIlI 8LwrN5nZeOuRYLxCHVgV8 WzrXErVDbjW006PFxzNjG 0SCRowgZbG5Hn HPJslIkcYtW8v6Y8Ae7Lt 8FumabkQSW7HGbcOJL7Kb K3LbUuBuB2R2IvSry1UWU fxShsGK8cG4So QJLjphkqhzqwvZZ1KJFpA WWtgI91kKWgVJlaVw6df9 O0x328PJPaRQMxqP71Zs9 udDogMTBwdCBU hZ0kkafqe3rrvopbLtIkO JEpVBh6POv2TEHftPtqDr RkZTQ9EvW1KVQ8aNVkhJ7 ckUmzkbycgW5p Oyc+A55tvP4cKMO2LEU5c pdsNVTfxfJgBN79RZ72F7 RyPjwvdGFibGU+PGRpdiB utRyfPR3rGrIf z8jnl3JpYZytE6ZfAWKoY YuzGnp3NECcFAZ5cHA6eK 2hPDQvDMcrq4Q2qJJ0A6Q zssHery7gj4av ESRgWQblH22zlYHiz1Z6R SQahKX3PQNqaDbrSvTfkG 93Oyc+SBXkjXtnl8JtXfi sn6gzt3uxjMn9 HaLvBKOnwcLcfUurJEO2z 0PyXz20D01sKLmoBKCsRF PsZPFeOBJztLrgod0fyL2 wIi8+PGNvbCB3 yRL5tX9kXJTjAbD3QWzfW 503WzSmbPFcMleuz7wyf3 phpGn3JnTjKFRiriNoeFc nABZ1a6HvYh18 T51pWIodXKJrPTFuVOBxW JCatJqcil4pvP0uNe4+PC 4pl0wwfk94oE04pKC+PHR kGII6dKbiPEif SOAniW0rJReoSkZ3CAHiV vTwkB28dONiQNgjCz3ltQ fhcKkpQV5iTSHltelhf10 0WuKwg7skOJNj kKQpROokQDD0P97yx6T8H MLiWKYhCKM7kRD0rV9zaG lnbjogbGVmdDsgdmVydGl sDNwhMFstX288 IHRvcDsnPlBhdGllbnQgT nBmGZx8V6HiHoe8FKHrkW qsRA4omCUtMKarCe7ilVn kyZmfWU3pOLCj qltbd739XeXxh9gqEPJpf LUxERvdHZD6M77gh3Z9SQ YdIWHeNXQ2yJT0rU8gxYn nbjogbGVmdDsg mpByvDwwIGnuPHyrW569I HRvcDsnPkJpcnRoIERhdG Y5OV38AA24pLOxv5R5lNR 3O5RjYVLkkpkd pddnhLS6PEUvLURnaI36L g6udEicUd7uUNAmRXH7OJ WibVTeD3JerC9iDrTzJDK vMHBvE2HrqUPp AYmoD814ZMmgPtL6NZKym oRuM1YdOENueUlpAgK4z5 Y8Rk7IJ5I5XW50QS95fPN xy5K2wWE1F5Lo TARyrvjraebstDO7OGXtM IAbeY25Ag3ukGkaZd3dEN YqCPY3OJSktPXdF6SjlM7 yOiAjMDAwMDAw F4VmuZJaAEixL779FCowG pT1DZLtomWwW6PaVCCrpF lbUjS4t5A7Qd2KGEy1CY4 3IH51wOZjd4P4 fPD6K3ZlZKCeafxvvfvek EE4MFKtDKDapA52Bf4khN jpXx8pWBUsIQE4HVOxeVU uF5ZmfV3gShFh UFTvYCMmT7VocDUzTCpgV 311IAohDdD9RBRxwcDoZ5 OfSMUsbZrfJwR5c4T8Qo3 AYVYcZR86HXB8 rCL4UT39PW22R6FuZpmtw GFibGU+PHRhYmxlIHdpZH RoPScxMDAlJyBzdHlsZT0 wQw3vYHShFDSd kXxxoKXxOwHbp7zrLLEbM BrpLX4siLtwQ0LzbQX7MH Tvl2s2Vm79F71uB7LjtFW +KTLvoNJ9oLI0 uA1cPuUnLtZ3XFbdF355S kFzpEQlOqvdu8ndv1uigN v7AkB6WYRmwzKpxIsrCWY 8f8UaZq89F32x IHdpZHRoPSIxNSUiIHZhb Izsuq5wuI4bUx1+PGNvbC D9uFL4uQ7zTcDxJzX5YUf oQ779NsHwoSMy Mycrd9fns6dmyNx4ZnVeV XXajlDrjKsmYLE9v0HoEx 96Z6SvgPfor2HoLjt5ww6 8aKWkr9Z5kFV3 O0IsYHJbwduigSIibLqyB Z0oGHLfhdntTYPmpU7jKM TjT3r9KmAgJrP8DSbyI9J ggtG0OBTctGGd UQuhYSX8D55ql2H3QJGpM UZxVSV0cCV7gH1fwEanzs ogbGVmdDsgdmVydGljYWw mOWgvQ616WVUf rSisESWofP5oXUDmzLSmf FnnQX9jJYLvxbogYwnOAB 7BUthsBFCDIT5iKBkrdSL +OPBwNML0hFqo XJolYNRoiA3sPCUrN1i2W qVgWgZ8KIfeO0JcVYEeyx htNa64kW7iPtMeNaB8YPt gJ0LewrI0QXEd zDEoJGwsZOW4C61uc9O9L OGrWEFaJJV3lVK2gZ2ixB lnbjogbGVmdDsgdmVydGl qUJczSMhbN248 CHRthWqePqK3BnQbXrU7D HC4E0CmFgs7NXJxvAquMG 1tsDNgFRqfCf6jmDxjcCb uJM4qUMRlhmxd QGDueJ2lLDJjzEStpVmqH Q7vCKRiwiqyn316SgEpZG M7DSDyzOIoY8AnoE8lYyT vKAOiVFLkT5Zj fYHwRWfrE458HTmmKqF2A DXipwRgB7WzTWStjWsdCy K4b5M0An3cRiBQYPZlpss vdGQ+PHRkIHN0 oWudBQtrUPJwkZ6kYTOoR 2m8QbAuNgY7ZWnyL3DuDD XnnnbdFm80lF9xHwKsQaU 1KWftO6TqlxL9 GFOgqWNySHzmJWG3O18jk 0Q6PVAoIKNtSLQ6dJN8vB 1hbGlnbjogbGVmdDsgdmV ydGljYWwtYWxp H615CISbiDkvHbXpuNMkM TwvdGQ+PEVxABY0tQrgVK vdMDTizZ0jUARaN9u7GfW hPcK1NGxtM4Uj BJFdoiqhIe17xE3yDdXvR aH1XBdnB8TlcsX5JPQleJ RpNGsjNIE1B14nh0G4YFY hSLCdDYC9jQK9 iM6clUuxdpwisKCojUrmz eJvmNsmAObsMLaoV118RB DyhPfzFzwxDvSYqr2sPK1 mZjwvdGQ+PC90 yo34G8IaOjwgJhd8WLGjH QD7xZX8sF0cVKZgUFtbc1 N5nZM6Q6GiysRcyp8dp4h eTRQfXNdjS34d fVGed2R2XNWaeIV0LFXfa RbwOlTrqW61Zho+PGNvbG gqb2UkVevfe3bdj4gveTw 9IjMwJSIgdmFs hVxcWTX6q8XmSw76R56tQ HdpZHRoPSIzMCUiIHZhbG trnp3jbI0dOh7+PGNvbCB 5tDJ2fT7iJeDk PmG1RWlpA663IsKuoMTvQ tltq1gbu2hztQp0AkMiPW WijnLdhVfoPRS5i6HiAb9 7H1YbpDasa6Lr Bvl5bi86gSCst7Z6lXJ2C 3BhZGRpbmctbGVmdDogMC 8dQUJuhzpiKDHlzT0oEBF iS0o6QxIwRiV9 LCldS1IqutG0PEKsbYTpA WDdrRCWnJ1gxjctg5fxnw guEzXuJYDjQHg1EPi2EKV saWduOiBsZWZ0 KwP9GLA1mDJnxM8cyMvpu yjkvM9eAhp+OZt1m0xqsK OzRH5ewTS0ZH19IA08fJQ hu4A5tKW6R0Gw UUPyrkwrdjqlcLN8DRXrR EBzmM88Kz7jaIaeDz0xKQ HvXNE2NRUguBKjT8HcyE0 yOiAjMDAwMDAw H3HdjNZkKXziX139QPvzY vB6YERbfhGsZ4PlVWAzcI blJbM1n2I8Vd0MRO67SF8 1IB03bFIyu8R2 eQD1E5ZjMYAyealliydvx KQ5UTZbTVJojP93Vx6bwD phPd8nCIXqBZZ5ULSvqVB tO4IfhQ4rVsPm YOEuAQSiJ9HdcNCjTBynN 487ECfwUsP9CZNqjkFkO6 AkIVMqbLkkJvN5e6L9Ge4 MSv86YB34NH85 iMHvj5O8vZL8F8WsHYUnm ktrixbxzQE6AXGuRVWcdN 22Fw5wkWeoXk1aPYGaSZP 2XRFxvKWnF7Si gQ3oTyAvFNSsQVUmN6Ltz SWaHHugH708DGnqDrL7DK NbawSdR6HgNQCceOnsAwD 5z9F2Vy4HQKuh edr4T9HxXdudjAJ+PC90Y NGuON53sTAiaGHps3egwN i0DcRhRKThUMH2eKrpIVq lf2SkGKOsO07z bGFw (more content not included)... Normal [facility] C Urineon 12-17-2020 Bacteria identified Cx Nom [...] Locations R1: This test was performed at: [facility], [address] [place] [address], [address] , , Normal [facility] Comment on above: Performed By: #### 2 [id number] ####[facility] [address] [facility] [place] [address] Ambulatory Clinical Summaryo n 12-14-2020 Ambulatory Clinical Summary {[id number]-lh-[id number] -[id number]-[id number] -[id number]}CD:[id number] Normal [facility] Family Medicine Office/Clini c Noteon 12-14-2020 Family [...] month ago, was treated with macrobid by obstetrics gynecology physician. Those symptoms have resolved until about 3 [...] plan Ordered: Office Visit Level 3 Est 27554 Urine Culture 2. BMI 29.0-29.9,adult (Z68.29: Body [...] documented 3008F Office Visit Level 3 Est 91954 Dysuria (R30.0: Dysuria) UA with only trace [...] continue. Ordered: Office Visit Level 3 Est 60060 Urine Culture Urnls Dip Stick Non-Auto w/o Micrscpy POC 63313 Follow-up With When Contact Information Teofilo BRANDT, Dave Rosen, [facility] [address]- Additional Instructions: Patient Education BMI for Adults [...] 09/20/2018 Employment/School Employed, Work/School description: Works at [employer]. Previous employment/school: Student. Activity level: Occasional physical work. Highest education level: Some college. Operates hazardous equipment: No., 09/20/2018 Exercise Exercise duration: 4. Exercise frequency: 5-6 times/week. Self assessment: Fair condition. Exercise type: Walking., 09/20/2018 Home/Environment Lives with Lives with boyfriend.. Living situation: Home/Independent. Alcohol abuse in household: No. Substance abuse in household: No. Smoker in (more content not included)... Normal [facility] Comment on above: Result Comment: Elec tronically [...] height. This can be done either in [place]iny[place]anda ([place] or metric measurements. Note that charts are available to help you find your BMI quickly and easily without having to do these calculations yourself. To calculate your BMI in [place]anda ([place] measurements, your health care provider will: [...] problems. ? BMI can be measured using Kinyarwanda measurements or metric measurements. ? To interpret [...] 01/02/2005 Document Revised: 04/05/2018 Document Reviewed: 03/06/2018 [employer] Patient Education ? 2019 [place]. [facility] Provider Letteron 12-14-2020 Provider Letter December 14, 2020 December 14, 2020 RACQUEL [place] [place] [address] RACQUEL VAZQUEZ 1995 To Whom It May Concern, Please excuse above patient from work. Date of Illness:12/13/2020 To: _12/15/2020 May Return to Work On:12/16/2020 Comments: _ Patient was seen in our office today and may return back to work on the date listed above. Sincerely, [facility] [address] [place] [address] [facility] ROW BOSS HOEING - Office Visiton ROW BOSS HOEING - Office Visit Diagnoses/Problems Assessed History of PCOS (polycystic ovarian syndrome) (256.4) (E28.2) Fertility testing (V26.21) (Z31.41) Screening for STD (sexually transmitted disease) (V74.5) (Z11.3) PCOS (polycystic ovarian syndrome) (256.4) (E28.2) Oligomenorrhea (626.1) (N91.5) Orders Anti Mullerian Hormone; Status:Active; Requested for:[id number]; 17-Hydroxyprogesteron e, Serum; Status:Active; Requested for:09Jun2020; Antithyroid [...] Blood type [ ] Genetic Screen with Adpoints - will consider [x ] Take vitamins, vitamin D [x ] Return to see me after workup complete to discuss management plan [x ] Education: New infertility packet to be mailed to patient [x ] Engaged MD albin Johnson MD [facility] [phone] [phone] [place] Provider Impressions 24 year old with oligomenorrhea, [...] Blood type [ ] Genetic Screen with Adpoints - will consider [x ] Take vitamins, vitamin D [x ] Return to see me after workup complete to discuss management plan [x ] Education: New infertility packet to be mailed to patient [x ] Engaged MD albin Johnson MD [facility] [phone] [place] [phone] [place] Appointment Duration:. 45 minutes; greater than half [...] trying for 4 years. History of Present Mqhcprb6106/09/2020 11:15AM RACQUEL VAZQUEZ , 24 year is contacted for an (audio-visual, or audio only) Telehealth visit. Today's visit was provided through telemedicine conferencing: Using [employer] platform. Consent: The concept of telemedicine? 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 Prior established pregnancies: No Toxic habits: Occasional [...] Recorded: 09Jun2020 11:02AM Height5 ft 5 in Kmbbjb128 lb BMI Teyjybulmg74.46 BSA Calculated1.82 Tobacco Useb) No Fall Screeninga) No falls within the last year [id number] Gravida0 Para0 Pain Scale0 Physical Exam This is a telehealth appointment Signatures Electronically signed by : Rayshawn Johnson MD; Jun 09 2020 11:52AM EST (Author) Normal [facility] HUMERUS LEFTon 12-01-2016 [facility] [address] [place] [address] Patient Name: RACQUEL VAZQUEZ : 1995Sex: FAge: Race: WhiteMRN: [id number]. Location: 84Patient Status: Date: 12/01/2016 4:25:00 PMCompleted Date: 12/01/2016 04:28 PMRequesting Provider: CARI GOOD Attending Provider: Report Copy To: Signs & Symptoms: S42.352D Displ commnt fx shaft of humer, l arm, 7thD Z05Jjmavxj: AthenaComments: , , Views (X-RAY, HUMERUS): AP, Lateral , Weight Bearing?: Y , With or Without Brace/Cast/Collar: Without , With Magnification Marker?: N , , , Ordering Provider - CARI GOOD MD , Rendering Provider - CARI GOOD MD , Exam: HUMERUS LEFTAccession #: [id number] HUM ERUS LEFT 12/01/2016 4:28 PM EDT [...] Electronically signed by:Subhash Campos M.D.. Transcribed by: [email or web address], User Resident: Electronically Signed by: SUBHASH CAMPOS @ 12/01/2016 04:35 PM Normal [facility] Comment on above: Order Comment: , [...] 18:50-0400 Body temperature 96.98 [degF] Mark Shenten [facility] 07-29-2021 18:50-0400 Diastolic blood pressure 58 mm[Hg] Mark Teliris [facility] 07-29-2021 18:50-0400 Heart rate 70 /min stiQRd [facility] 07-29-2021 18:50-0400 Respiratory rate 12 /min Mark Teliris [facility] 07-29-2021 18:50-0400 SaO2% (BldA) [Mass fraction] 99 % stiQRd [facility] 07-29-2021 18:50-0400 Systolic blood pressure 100 mm[Hg] Mark Teliris [facility] 07-29-2021 17:50-0400 Body temperature 97.52 [degF] Mark Teliris [facility] 07-29-2021 17:50-0400 Diastolic blood pressure 60 mm[Hg] Mark Teliris [facility] 07-29-2021 17:50-0400 Heart rate 70 /min Mark Moffett [facility] 07-29-2021 17:50-0400 Respiratory rate 12 /min Mark Moffett [facility] 07-29-2021 17:50-0400 SaO2% (BldA) [Mass fraction] 99 % Mark Moffett [facility] 07-29-2021 17:50-0400 Systolic blood pressure 110 mm[Hg] Mark Moffett [facility] 07-29-2021 17:49-0400 Body temperature 97.52 [degF] Mark Moffett [facility] 07-29-2021 17:49-0400 Diastolic blood pressure 79 mm[Hg] Mark Moffett [facility] 07-29-2021 17:49-0400 Heart rate 69 /min Mark Moffett [facility] 07-29-2021 17:49-0400 Respiratory rate 12 /min Mark Moffett [facility] 07-29-2021 17:49-0400 SaO2% (BldA) [Mass fraction] 99 % Mark Moffett [facility] 07-29-2021 17:49-0400 Systolic blood pressure 113 mm[Hg] Mark Moffett [facility] 07-29-2021 17:10-0400 Respiratory rate 24 /min Mark Moffett [facility] 07-29-2021 17:05-0400 Respiratory rate 24 /min Mark Moffett [facility] 07-29-2021 17:00-0400 Respiratory rate 27 /min Mark Moffett [facility] 03-25-2022 14:40-0400 Heart rate 72 /min Mark Moffett [facility] 07-29-2021 14:37-0400 Blood Pressure Location Mark Moffett [facility] 07-29-2021 14:37-0400 Mean blood pressure 93 mm[Hg] Mark Moffett [facility] 07-29-2021 14:37-0400 Blood Pressure Location Mark Moffett [facility] 07-29-2021 14:37-0400 Body temperature 98.24 [degF] Mark Moffett [facility] 07-29-2021 14:37-0400 BP/Pulse Patient Position Mark Moffett [facility] 07-29-2021 14:37-0400 Mean blood pressure 91 mm[Hg] Mark Moffett [facility] Encounters Encounter Date Encounter Type Care Provider Facility Start: 09-21-2021 End: 09-21-2021 Lab Drop off Steph Temitope Brady [facility] Start: 07-29-2021 End: 07-29-2021 Admission to same day surgery center Mark Jessika Moffett [facility] Start: 12-01-2016 End: 12-02-2016 Ambulatory VITHAL SHENDGE Facility:[facility] Start: 11-01-2016 End: 11-02-2016 Ambulatory DEFAULT PHYSICIAN Facility:[facility] Procedures Date Procedure Procedure Detail Performing Clinician Start: 09-15-2016 left humerus ORIF Mark Zuhair Appendectomy Mark Zuhair Payers Date Payer Category Payer Policy ID Unknown [id number] Unknown Social History Date Type Detail Facility Start: 12-14-2020 Tobacco smoking status Never s moked tobacco (finding) [facility] Tobacco smoking status Never [facility] Sex Assigned At Female [facility] Hospital Discharge instructions 07-29-2021 Note Date & Type Note Facility 07-29-2021 Hospital Discharg e instructions Patient Education 07/29/2021 17:20:52 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 [facility] History and physical note 07-29-2021 Note Date [...] curettage. Mark Moffett M.D. van Dictated: 07/28/2021 [id number] Transcribed: 07/29/2021 [facility] Comment on above: Result Comment: Elec tronically Signed By: Zuhair BRANDT, Mark Rosen\.br\Date and Time Signed: 07/29/21 11:44 EDT Evaluation + Plan note Note Date & Type Note Facility Evaluation + Plan note No data available for this section [facility] Hospital Discharge instructions Note Date & Type Note Facility Hospital Discharge instructions No data available for this section [facility] Summary Purpose Family History No Family History Records FoundNo Family History Records FoundNo Family History Records Found Advance Directives No Advanced Directives Records FoundNo Advanced Directives Records FoundNo Advanced Directives Records Found Additional Source Comments INFORMATION SOURCE (unrecogn ized section and content) DATE CREATED AUTHOR 10/31/2017 [facility] DATE CREATED AUTHOR AUTHOR'S ORGANIZ ATION 06/10/2020 [employer] DATE CREATED AUTHOR AUTHOR'S ORGANIZ ATION 11/04/2021 [facility] FOR RECORDS PERTAINING TO PATIENTS WHO [...] BE BASED ON THE PRIMARY CLINICAL RECORDS. [facility] [employer] [facility]. provides no warranty or guarantee of the accuracy or completeness of information in this document.
[2023-06-23 04:07] LABS: Progesterone 8.2 ng/mL (.)
== END 2023-06-22 13:02 | disposition home or self-care (01) ==
LOC: LAB 13:02
PROVIDERS: Visit Provider Obstetrics & Gynecology
DX: N97.9 Female infertility, unspecified (principal)
CPT/HCPCS: 36415; 84144

== ENCOUNTER 2023-07-26 15:10 | Outpatient (OUT) | payer SELFPAY ==
--- OUTSIDE RECORDS SUMMARY | 2023-07-26 15:22 | XMS_ITS | CCD ---
Author Organization [facility] Care Team Providers Care Test Consultant Name Role Phone PHYSICIAN, DEFAULT Unavailable Unavailable PHYSICIAN, DEFAULT Unavailable Unavailable SHENDGE, VITHAL Unavailable Unavailable SHENDGE, VITHAL Unavailable Unavailable SELF, REFERRED Unavailable Unavailable SELF, REFERRED Unavailable Unavailable Dave Red Primary Care Physician Unavailable Primary Care Provider Unavailabl e Cristi Saldana Attending Unavailable Cristi Saldana Admitting Unavailable Cristi Saldana Attending Unavailable Allergies Allergy Classification Reported Allergen(s) Allergy Type Date of Onset Reaction(s) Facility (1 source) No Known Medication Allergies; Translations: [No Known Medication Allergies] Propensity to adverse reactions (disorder) [facility] Repository Medications Current Medications Medication Drug Class(es) Dates Sig (Normalized) Sig (Original) ibuprofen 600 mg oral tablet (2 sources) Nonsteroidal Anti-inflammator y Drug Start: 2 take 1 tablet by mouth every six hours ibuprofen 600 mg Tab 600 mg = 1 tab(s), Oral, q6hr, # 10 tab(s), Refills(s) 0, Pharmacy: [facility], 164, cm, 07/20/21 5:00:00 EDT, Height/Length Dosing, 79.7, kg, 07/20/21 5:00:00 EDT, Weight Dosing Start Date: 07/29/21 Status: Ordered letrozole 2.5 mg oral tablet (2 sources) Aromatase Inhibitor Start: 4 letrozole 2.5 mg Tab Refills(s) 0 Start Date: 07/23/23 Status: Ordered medroxyPROGESTERone acetate 10 mg oral tablet (8 sources) Progestin Start: 3 End: 4 medroxyPROGESTERone 10 mg Tab Refills(s) 0 Start Date: 07/23/23 Status: Ordered metFORMIN hydrochloride 500 mg oral tablet (2 sources) Biguanide Start: 3 End: 4 take 1 tablet by mouth at mealtime metFORMIN (Glucophage) 500 MG tablet Indications: PCOS (polycystic ovarian syndrome) Take 1 tablet (500 mg) by mouth in the morning. Take with meals. 30 tablet 11 02/13/2023 02/13/2024 Active Problems Active Problems Problem Classification Problem Date Documented Date Episodic/Chronic Anxiety disorders (4 sources) Generalized anxiety disorder 09-20-2018 Chronic Cancer of cervix (1 source) Carcinoma in situ of uterine cervix; Translations: [Carcinoma in situ of cervix, unspecified] Onset: 07-29-2021 Episodic Female infertility (2 sources) Female infertility; Translations: [Female infertility, unspecified] 06-14-2023 Chronic Genitourinary symptoms and ill-defined conditions (2 sources) Increased frequency of urination; Translations: [Frequency of micturition] Onset: 07-23-2023 Episodic Mood disorders (4 sources) Major depressive disorder 09-20-2018 Chronic Other endocrine disorders (4 sources) Polycystic ovary Onset: 05-07-2016 06-11-2019 Chronic Other nutritional; endocrine; and metabolic disorders (4 sources) Obesity 12-03-2019 Chronic Other nutritional; endocrine; and metabolic disorders (2 sources) Obese class I; Translations: [Body mass index (BMI) 32.0-32.9, adult] Onset: 07-23-2023 Chronic Residual codes; unclassified (1 source) Past history of procedure; Translations: [Other specified postprocedural states] Onset: 07-29-2021 Episodic Substance-related disorders (4 sources) Smoker 07-19-2021 Chronic Comment on above: [...] L ARM, 7THD] Onset: 12-01-2016 Episodic Unclassified (4 sources) None (qualifier value) 06-13-2019 Results Test Name Value Interpretation Reference Range Facility C Urineon 07-25-2023 Bacteria identified Cx Nom (U) Microbiology PROCEDURE: Urine Culture [R1] SOURCE: U CleanCatch BODY SITE: COLLECTED DATE/TIME: 07/23/2023 10:43 EDT RECEIVED DATE/TIME: 07/23/2023 12:09 EDT START DATE/TIME: 07/23/2023 12:09 EDT FREE TEXT SOURCE: Cristi Saldana PA-C, PA-C, Cristi Palma. FINAL REPORTS Final Report [] Verified Date/Time: 07/25/2023 07:26 EDT 5,000 cfu/ml Mixed skin contaminants Performing Locations R1: This test was performed at: [facility], [address] [place] [address], [address] , , [facility] Comment on above: Performed By: #### [id number] #### [facility] [address] [place] [id number] Ambulatory Visit Summaryon 0 07-23-2023 Ambulatory Visit Summary RACQUEL YADAV :1995 Visit Date:07/23/2023 Ambulatory Visit Instructions Your Diagnosis Urinary frequency BMI 32.0-32.9,adult UTI symptoms Your Care Team Attending Physician - Cristi Saldana PA-C Primary Care Physician - Dave Red MD This Is Your Medications List Contact prescribing physician if questions or concerns letrozole (letrozole 2.5 mg Tab) medroxyPROGESTERone (medroxyPROGESTERone 10 mg Tab) Procedures Performed left humerus ORIF (09/15/2016), appendectomy. Discharge Vitals Temperature (Oral) 36.8 ?C Heart Rate (Peripheral) 81 Blood Pressure 118/74 Height 162 cm Height 64 in Weight 85.8 kg Weight 188.76 lb BMI 32.69 What to do next You Need to Schedule the Following Appointments Follow Up with Teofilo BRANDT, Dave Rosen, [facility] When: Where: [address] [place] [address]- Medications What When Instructions Unchanged letrozole (letrozole 2.5 mg Tab) Contact prescribing physician if questions or concerns Unchanged medroxyPROGESTERone (medroxyPROGESTERone 10 mg Tab) Contact prescribing physician if questions or concerns Allergies No Known Allergies No Known Medication Allergies Problems Ongoing - Any problem that you are currently receiving treatment for. Generalized anxiety disorder Major depressive disorder Never Smoker Obesity PCO (polycystic ovaries) Historical - Any problem that you are no longer receiving treatment for. None Patient Survey You may receive a survey via text or e-mail asking about your office visit. Please share your experience with us by completing your survey. We appreciate your feedback and thank you for choosing us for your care. Education Materials Urinary Frequency, Adult Urinary frequency means urinating more often than usual. You may urinate every 1?2 hours even though you drink a normal amount of fluid and do not have a bladder infection or condition. Although you urinate more often than normal, the total amount of urine produced in a day is normal. With urinary frequency, you may have an urgent need to urinate often. The stress and anxiety of needing to find a bathroom quickly can make this urge worse. This condition may go away on its own, or you may need treatment at home. Home treatment may include bladder training, exercises, taking medicines, or making changes to your diet. Follow these instructions at home: Bladder health Your health care provider will tell you what to do to improve bladder health. You may be told to: ? Keep a bladder diary. Keep track of: ? What you eat and drink. ? How often you urinate. ? How much you urinate. ? Follow a bladder training program. This may include: ? Learning to delay going to the bathroom. ? Double urinating, also called voiding. This helps if you are not completely emptying your bladder. ? Scheduled voiding. ? Do Kegel exercises. Kegel exercises strengthen the muscles that help control urination, which may help the condition. Eating and drinking Follow instructions from your health care provider about eating or drinking restrictions. You may be told to: ? Avoid caffeine. ? Drink fewer fluids, especially alcohol. ? Avoid drinking in the evening. ? Avoid foods or drinks that may irritate the bladder. These include coffee, tea, soda, artificial sweeteners, citrus, tomato-based foods, and chocolate. ? Eat foods that help prevent or treat constipation. Constipation can make urinary frequency worse. You may need to take these actions to prevent or treat constipation: ? Drink enough fluid to keep your urine pale yellow. ? Take urzt-ymf-lfeargb or prescription medicines. ? Eat foods that are high in fiber, such as beans, whole grains, and fresh fruits and vegetables. ? Limit foods that are high in fat and processed sugars, such as fried or sweet foods. General instructions ? Take xycp-vtv-npqxahn and prescription medicines only as told by your health care provider. ? Keep all follow-up visits. This is important. Contact a health care provider if: ? You start urinating more often. ? You feel pain or irritation when you urinate. ? You notice blood in your urine. ? Your urine looks cloudy. ? You develop a fever. ? You begin vomiting. Get help right away if: ? You are unable to urinate. Summary ? Urinary frequency means urinating more often than usual. With urinary frequency, you may urinate every 1?2 hours even though you drink a normal amount of fluid and do not have a bladder infection or other bladder condition. ? Your health care provider may recommend that you keep a bladder diary, follow a bladder training program, or make dietary changes. ? If told by your health care provider, do Kegel exercises to strengthen the muscles that help control urination. ? Take chbk-net-fdeudsg and prescripti (more content not included)... Normal [facility] Family Medicine Office/Clini c Noteon 07-23-2023 Family Medicine Office/Clinic Note Chief Complaint Current pt uti symptoms HPI Staff 27 yo female here with uti symptoms Onset- 2 days ago Frequency- yes Urgency- yes Small volume void- yes Dysuria- denies Pressure- yes Back pain- yes Nocturia- denies Fever/chills- denies Nausea/vomiting- nausea UTI or other reason for antbx's last 30 days- denies Pt had progesterone at beginning of [facility], letrozole Pt is trying to get - has never ovulated- not sure if this is the pain she is feeling History of Present Illness I have reviewed and verified the staff HPI to be accurate for this encounter. Portions of this record have been created with voice recognition software. Occasional wrong-word or ?qbogz-q-enln? substitutions may have occurred due to the inherent limitations of voice recognition software. 27-year-old female presents to [facility] today with chief complaint of possible UTI. Patient states symptom onset x 2 days ago on Sunday states since then she has had urinary frequency and urgency lower bladder pressure and lower back pain. Denies dysuria or hematuria. She denies any fever or chills. States she has had intermittent nausea but denies any vomiting diarrhea or abdominal pain. Patient states she has been trying to get . States that she has never ovulated not sure if this is pain that she could be feeling today. Had started progesterone at the beginning of the month. States a history of PCOS. States this to be her fourth round of progesterone for this type of fertility treatment. States she has blood work to be drawn on to see if she ovulated or not. She states her last menstrual cycle was at the beginning of the month around July 05 ended on the . She denies any vaginal bleeding she does state some lower abdominal pressure but denies significant pain and also states some lower back pressure and discomfort. She does state history of UTIs in the past for which she is to get them frequently almost 1/month. She wants to make sure she does not have a UTI. She does not believe she could be as she is still in her fertility window. Again denies any abnormal vaginal bleeding. She has no other concerns at this time. Review of Systems PHQ Score Initial Depression Screen Score: 0 SCORE ROS negative unless otherwise stated in HPI. Physical Exam Vitals & Measurements T: 36.8 ?C(Oral) HR: 81(Peripheral) BP: 118/74 SpO2: 97% HT: 64 in HT: 162 cm WT: 85.8 kg WT: 188.76 lb BMI: 32.69 General: Very pleasant obese young female, no acute distress Eyes: not assessed Ears: not assessed Nose: not addressed Mouth: not assessed Neck: not assessed Lungs: Lung sounds are clear bilaterally. No wheezing rhonchi or crackles on exam. Cardio: S1, S2, regular rhythm. No murmurs gallops or rubs. Abdomen: Bowel sounds are present x 4 quadrants. Abdomen is soft, nondistended. Patient has slight discomfort with palpation of the left lower pelvic region and suprapubic region however without rigidity rebound or guarding on exam. Negative McBurney's point tenderness. Negative Appiah sign. Musculoskeletal: not assessed Extremity: not assessed Neurologic: not assessed Skin: not assessed Mental Status: Alert and oriented x3. Normal mood and affect Assessment/Plan Patient had a urine dip completed in office which is negative for urinary tract infection at this time it did note trace blood which we will send for culture to confirm no bacterial growth. Patient is in understanding and agreement she is currently undergoing some fertility treatment and taking progesterone states she has blood work to be drawn on . Discussed that I would like to just dip the urine to ensure she is not as that would change the plan of treatment with some lower abdominal pressure and lower back pain. Urine is negative at this time. Discussed with patient if she continues to have lower pelvic pain pressure back pain is develops vaginal bleeding with this as she should contact her NURSE EMERGENCY Dr. Vaughan for further evaluation in which patient agrees and understands plan. We also discussed with patient develops any severe abdominal or pelvic pain if she were develop fever or vomiting with her symptoms she should seek ER for reevaluation which patient agrees and understands plan of care. 1. Urinary frequency (R35.0: Frequency of micturition) UA without abnormality. Discussed UTI unlikely. Will cx urine to ensure no bacterial growth and notify of results in 3-5 days. Fluids/rest. FU with PCP if continuing or worsening symptoms for further eval. Patient verbalized understanding of tx plan. Ordered: E&M of Est. Patient Straight Fwd 10-19 Min 30213 2. BMI 32.0-32.9,adult (Z68.32: Body mass index [BMI] 32.0-32.9, adult) The standard range for ages 18 and older is >=18.5 and < 25 kg/m2. Your BMI today was above this range, this falls in the overweight to obese category and there are medical benefits to weight loss. We can offer counselling, referral, a (more content not included)... Normal [facility] Comment on above: Result Comment: Elec tronically Signed By: Les AVALOS, Cristi Messer\.br\Date and Time Signed: 07/23/23 11:06 EDT Patient Educationon 07-23-19 Patient Education Nutrition BMI for Adults What is BMI? Body mass index (BMI) is a number that is calculated from a person's weight and height. BMI can help estimate how much of a person's weight is composed of fat. BMI does not measure body fat directly. Rather, it is an alternative to procedures that directly measure body fat, which can be difficult and expensive. BMI can help identify people who may be at higher risk for certain medical problems. What are BMI measurements used for? BMI is used as a screening tool to identify possible weight problems. It helps determine whether a person is obese, overweight, a healthy weight, or underweight. BMI is useful for: ? Identifying a weight problem that may be related to a medical condition or may increase the risk for medical problems. ? Promoting changes, such as changes in diet and exercise, to help reach a healthy weight. BMI screening can be repeated to see if these changes are working. How is BMI calculated? BMI involves measuring your weight in relation to your height. Both height and weight are measured, and the BMI is calculated from those numbers. This can be done either in [place] or metric measurements. Note that charts and online BMI calculators are available to help you find your BMI quickly and easily without having to do these calculations yourself. To calculate your BMI in [place] measurements: 1. Measure your weight in pounds (lb). 2. Multiply the number of pounds by 703. ? For example, for a person who weighs 180 lb, multiply that number by 703, which equals 126,540. 3. Measure your height in inches. Then multiply that number by itself to get a measurement called inches squared. ? For example, for a person who is 70 inches tall, the inches squared measurement is 70 inches x 70 inches, which equals 4,900 inches squared. 4. Divide the total from step 2 (number of lb x 703) by the total from step 3 (inches squared): 126,540 ? 4,900 = 25.8. This is your BMI. To calculate your BMI in metric measurements: 1. Measure your weight in kilograms (kg). [...] 3.1 = 22.6. This is your BMI. What do the results mean? BMI charts are used to identify whether you are underweight, normal weight, overweight, or obese. The following guidelines will be used: ? Underweight: BMI less than 18.5. ? Normal weight: BMI between 18.5 and 24.9. ? Overweight: BMI between 25 and 29.9. ? Obese: BMI of 30 or above. Keep these notes in mind: ? Weight includes both fat and muscle, [...] the same way for men and women. Where to find more information For more information about BMI, including tools to quickly calculate your BMI, go to these websites: ? Centers for Disease Control and Prevention: www.cdc.gov ? [place] Heart Association: www.heart.org ? National Heart, Lung, and Blood [place]: www.nhlbi.nih.gov Summary ? Body mass index (BMI) is a number that is calculated from a person's weight and height. ? BMI may help estimate how much of a person's weight is composed of fat. BMI can help identify those who may be at higher risk for certain medical problems. ? BMI can be measured using Citizen [place] measurements or metric measurements. ? BMI charts are used to identify whether you are underweight, normal weight, overweight, or obese. This information is not intended to replace advice given to you by your health care provider. Make sure you discuss any questions you have with your health care provider. Document Revised: 01/14/2020 Document Reviewed: 11/21/2019 [employer] Patient Education ? 2022 [employer] Urology Urinary Frequency, Adult Urinary frequency means urinating more often than usual. You may urinate every 1?2 hours even though you drink a normal amount of fluid and do not have a bladder infection or condition. Although you urinate more often than normal, the total amount of urine produced in a day is normal. With urinary frequency, you may have an urgent need to urinate often. The stress and anxiety of needing to find a bathroom quickly can make this urge worse. This condition may go away on its own, or you may need treatment at home. Home treatment may include bladder training, exercises, taking medicines, or making changes to your diet. Follow these instructions at home: (more content not included)... [facility] Provider Letteron 07-23-2023 Provider Letter (Inserted Image. Minerva ble to display) July 23, 2023 RACQUEL YADAV [address] [place] [address] : 1995 To Whom It May Concern, Please excuse above patient from work. Date of Illness: 07/23/2023 May Return to Work On:07/24/2023 Sincerely, [facility] [address] [place] [address], [place] [address] [facility] NURSE EMERGENCY - Office Visiton NURSE EMERGENCY - Office Visit Diagnoses/Problems Assessed History of PCOS (polycystic ovarian syndrome) (256.4) (E28.2) Fertility testing (V26.21) (Z31.41) Screening for STD (sexually transmitted disease) (V74.5) (Z11.3) PCOS (polycystic ovarian syndrome) (256.4) (E28.2) Oligomenorrhea (626.1) (N91.5) Orders Anti Mullerian Hormone; Status:Active; Requested for:46Riy2887; 17-Hydroxyprogesterone, Serum; Status:Active; Requested for:22Dbw8224; Antithyroid Perox. Ab; Status:Active; Requested for:30Tzy0890; Complete Blood Count; Status:Active; Requested for:56Mqk5541; DHEA Sulfate, Serum; Status:Active; Requested for:67Zyc4426; GC + Chlamydia By Amplified Detection; Status:Active; Requested for:53Iux2913; HCG, Beta Quantitative; Status:Active; Requested for:61Vfh8624; Hemoglobin A1C; Status:Active; Requested for:32Xcf2772; Hepatitis B Surface Antigen; Status:Active; Requested for:86Uuh7053; Hepatitis C Antibody Test; Status:Active; Requested for:07Jre0319; HIV 1/2 ANTIGEN/ANTIBODY SCREEN WITH REFLEX TO CONFIRMATION; Status:Active; Requested for:63Nku5678; IO Ultrasound, pelvic complete; Status:Hold For - [...] Blood type [ ] Genetic Screen with [facility] - will consider [x ] Take vitamins, vitamin D [x ] Return to see me after workup complete to discuss management plan [x ] Education: New infertility packet to be mailed to patient [x ] Engaged MD albin Johnson MD [facility] [phone] [place] [phone] [place] Provider Impressions 24 year old with oligomenorrhea, [...] Blood type [ ] Genetic Screen with [facility] - will consider [x ] Take vitamins, vitamin D [x ] Return to see me after workup complete to discuss management plan [x ] Education: New infertility packet to be mailed to patient [x ] Engaged MD albin Johnson MD [facility] [phone] [place] [phone] [place] Appointment Duration:. 45 minutes; greater than half [...] trying for 4 years. History of Present Rheycoz1906/09/2020 11:15AM RACQUEL VAZQUEZ , 24 year is contacted for an (audio-visual, or audio only) Telehealth visit. Today's visit was provided through telemedicine conferencing: Using [employer] platform. Consent: The concept of telemedicine? 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 Prior established pregnancies: No Toxic habits: Occasional tobacco use, Rare alcohol use Medications: No Health Problems: No Injuries/Surgeries/STDs: No PRIOR EVALUATION / TREATMENT Fam Hx: [...] Recorded: 09Jun2020 11:02AM Height5 ft 5 in Bsjlsb570 lb BMI Zkpjxlpsin64.46 BSA Calculated1.82 Tobacco Useb) No Fall Screeninga) No falls within the last year [id number] Gravida0 Para0 Pain Scale0 Physical Exam This is a telehealth appointment Signatures Electronically signed by : Rayshawn Johnson MD; Jun 09 2020 11:52AM EST (Author) Normal [facility] HUMERUS LEFTon 12-01-2016 [facility] [address] [place] [address] ==Patient Name: RACQUEL VAZQUEZ : 1995Sex: FAge: Race: WhiteMRN: [id number]. Location: 84Patient Status: Date: 12/01/2016 4:25:00 PMCompleted Date: 12/01/2016 04:28 PMRequesting Provider: CARI GOOD Attending Provider: Report Copy To: Signs & Symptoms: S42.352D Displ commnt fx shaft of humer, l arm, 7thD [id number]: AthenaComments: , , Views (X-RAY, HUMERUS): AP, Lateral , Weight Bearing?: Y , With or Without Brace/Cast/Collar: Without , With Magnification Marker?: N , , , Ordering Provider - CARI GOOD MD , Rendering Provider - CARI GOOD MD , Exam: HUMERUS LEFTAccession #: [id number] =========HUMERUS LEFT 12/01/2016 4:28 PM EDT SIGNS AND [...] Electronically signed by:Subhash Campos M.D.. Transcribed by: [email or web address], User Resident: Electronically Signed by: SUBHASH CAMPOS @ 12/01/2016 04:35 PM Normal [facility] Comment on above: Order Comment: , , V iews (X-RAY, HUMERUS): AP, Lateral , Weight Bearing?: Y , With or Without Brace/Cast/Collar: Without , With Magnification Marker?: N , , , Ordering Provider - CARI GOOD MD , Rendering Provider - CARI GOOD MD , Vital Signs Date Time Vital Sign Value Performing Clinician Facility 07-23-2023 10:31-0400 Blood Pressure Location Cristi Saldana [facility] 07-23-2023 10:31-0400 Body temperature 98.24 [degF] Cristi Saldana [facility] 07-23-2023 10:31-0400 Diastolic blood pressure 74 mm[Hg] Cristi Saldana [facility] 07-23-2023 10:31-0400 Heart rate 81 /min Cristi [place] [facility] 07-23-2023 10:31-0400 SaO2% (BldA) [Mass fraction] 97 % Cristi Saldana [facility] 07-23-2023 10:31-0400 Systolic blood pressure 118 mm[Hg] Cristi Saldana [facility] 07-29-2021 18:50-0400 Body temperature 96.98 [degF] Mark Zuhair [facility] 07-29-2021 18:50-0400 Diastolic blood pressure 58 mm[Hg] Mark Zuhair [facility] 07-29-2021 18:50-0400 Heart rate 70 /min Mark Zuhair [facility] 07-29-2021 18:50-0400 Respiratory rate 12 /min Mark Zuhair [facility] 07-29-2021 18:50-0400 SaO2% (BldA) [Mass fraction] 99 % Mark Zuhair [facility] 07-29-2021 18:50-0400 Systolic blood pressure 100 mm[Hg] Mark Moffett [facility] 07-29-2021 17:50-0400 Body temperature 97.52 [degF] Mark Moffett [facility] 07-29-2021 17:50-0400 Diastolic blood pressure 60 mm[Hg] Mark Moffett [facility] 07-29-2021 17:50-0400 Heart rate 70 /min Mark Moffett [facility] 07-29-2021 17:50-0400 Respiratory rate 12 /min Mark Moffett [facility] 07-29-2021 17:50-0400 SaO2% (BldA) [Mass fraction] 99 % Mark Moffett [facility] 07-29-2021 17:50-0400 Systolic blood pressure 110 mm[Hg] Mark Moffett [facility] 07-29-2021 17:49-0400 Body temperature 97.52 [degF] Mark Moffett [facility] 07-29-2021 17:49-0400 Diastolic blood pressure 79 mm[Hg] Mark Moffett [facility] 07-29-2021 17:49-0400 Heart rate 69 /min Mark Moffett [facility] 07-29-2021 17:49-0400 Respiratory rate 12 /min Mark Moffett [facility] 07-29-2021 17:49-0400 SaO2% (BldA) [Mass fraction] 99 % Mark Moffett [facility] 07-29-2021 17:49-0400 Systolic blood pressure 113 mm[Hg] Mark Moffett [facility] 07-29-2021 17:10-0400 Respiratory rate 24 /min Mark Moffett [facility] 07-29-2021 17:05-0400 Respiratory rate 24 /min Mark Moffett [facility] 07-29-2021 17:00-0400 Respiratory rate 27 /min Mark Moffett [facility] 07-29-2021 14:40-0400 Heart rate 72 /min Mark Moffett [facility] 07-29-2021 14:37-0400 Blood Pressure Location Mark Moffett [facility] 07-29-2021 14:37-0400 Mean blood pressure 93 mm[Hg] Mark Moffett [facility] 07-29-2021 14:37-0400 Blood Pressure Location Mark Moffett [facility] 07-29-2021 14:37-0400 Body temperature 98.24 [degF] Mark Moffett [facility] 07-29-2021 14:37-0400 BP/Pulse Patient Position Mark Moffett [facility] 07-29-2021 14:37-0400 Mean blood pressure 91 mm[Hg] Mark Moffett [facility] Encounters Encounter Date Encounter Type Care Provider Facility Start: 07-23-2023 End: 07-24-2023 ambulatory Cristi Saldana Facility:[facility] Start: 07-23-2023 End: 07-23-2023 Lab Drop off Cristi Saldana [facility] Start: 07-23-2023 End: 07-23-2023 Patient encounter procedure Cristi Saldana [facility] Start: 06-19-2023 End: 06-19-2023 Phys/qhp telephone evaluation 5-10 min Nakul Vaughan DO Work Phone: [facility] Comment on above: Female infertility Start: 09-21-2021 End: 09-21-2021 Lab Drop off Steph Brady [facility] Start: 07-29-2021 End: 07-29-2021 Admission to same day surgery center Mark Moffett [facility] Start: 12-01-2016 End: 12-02-2016 Ambulatory VITHAL SHENDGE Facility:[facility] Start: 11-01-2016 End: 11-02-2016 Ambulatory DEFAULT PHYSICIAN Facility:[facility] Procedures Date Procedure Procedure Detail Performing Clinician Start: 09-15-2016 left humerus ORIF Mark Moffett Appendectomy Mark Moffett Payers Date Payer Category Payer Unknown [id number] 1995 Unknown [id number] 1995 Unknown [id number] Unknown [id number] Unknown Social History Date Type Detail Facility Start: 12-14-2020 End: 07-23-2023 Tobacco smoking status Never smoked tobacco (finding) [facility] Tobacco smoking status Never [facility] Sex Assigned At Female [facility] smoking consumption unknown [facility] Start: 1995 Sex Assigned At Female [facility] Start: 01-09-2023 Gender identity Identifies as female gender (finding) [facility] Start: 01-09-2023 Sexual orientation Heterosexual (finding) [facility] Functional Status Date Assessment Result Facility 07-23-2023 Functional Status N/A [facility] Evaluation + Plan note 07-23-2023 Note Date & Type Note Facility 07-23-2023 Evaluation + Plan note Diagnostic Tests PendingUrine Culture 07/23/23 [facility] Hospital Discharge instructions 03-18-2024 Note Date & Type Note Facility 07-23-2023 Hospital Discharg e instructions Patient Education 07/23/2023 11:05:58 Urinary Frequency, Adult Urinary Frequency, Adult Urinary frequency means urinating more often than usual. You may urinate every 1 2 hours even though you drink a normal amount of fluid and do not have a bladder infection or condition. Although you urinate more often than normal, the total amount of urine produced in a day is normal. With urinary frequency, you may have an urgent need to urinate often. The stress and anxiety of needing to find a bathroom quickly can make this urge worse. This condition may go away on its own, or you may need treatment at home. Home treatment may include bladder training, exercises, taking medicines, or making changes to your diet. Follow these instructions at home: Bladder health Your health care provider will tell you what to do to improve bladder health. You may be told to: Keep a bladder diary. Keep track of: ?What you eat and drink. ?How often you urinate. ?How much you urinate. Follow a bladder training program. This may include: ?Learning to delay going to the bathroom. ?Double urinating, also called voiding. This helps if you are not completely emptying your bladder. ?Scheduled voiding. Do Kegel exercises. Kegel exercises strengthen the muscles that help control urination, which may help the condition. Eating and drinking Follow instructions from your health care provider about eating or drinking restrictions. You may be told to: Avoid caffeine. Drink fewer fluids, especially alcohol. Avoid drinking in the evening. Avoid foods or drinks that may irritate the bladder. These include coffee, tea, soda, artificial sweeteners, citrus, tomato-based foods, and chocolate. Eat foods that help prevent or treat constipation. Constipation can make urinary frequency worse. You may need to take these actions to prevent or treat constipation: ?Drink enough fluid to keep your urine pale yellow. ?Take aobx-zve-ugypuaf or prescription medicines. ?Eat foods that are high in fiber, such as beans, whole grains, and fresh fruits and vegetables. ?Limit foods that are high in fat and processed sugars, such as fried or sweet foods. General instructions Take jxpo-ujl-woznmxl and prescription medicines only as told by your health care provider. Keep all follow-up visits. This is important. Contact a health care provider if: You start urinating more often. You feel pain or irritation when you urinate. You notice blood in your urine. Your urine looks cloudy. You develop a fever. You begin vomiting. Get help right away if: You are unable to urinate. Summary Urinary frequency means urinating more often than usual. With urinary frequency, you may urinate every 1 2 hours even though you drink a normal amount of fluid and do not have a bladder infection or other bladder condition. Your health care provider may recommend that you keep a bladder diary, follow a bladder training program, or make dietary changes. If told by your health care provider, do Kegel exercises to strengthen the muscles that help control urination. Take zwid-xba-ixfmtis and prescription medicines only as told by your health care provider. Contact a health care provider if your symptoms do not improve or get worse. This information is not intended to replace advice given to you by your health care provider. Make sure you discuss any questions you have with your health care provider. Document Revised: 11/26/2020 Document Reviewed: 11/26/2020 [address] Patient Education 2022 [employer]. 07/23/2023 10:36:54 BMI for Adults BMI for Adults What is BMI? Body mass index (BMI) is a number that is calculated from a person's weight and height. BMI can help estimate how much of a person's weight is composed of fat. BMI does not measure body fat directly. Rather, it is an alternative to procedures that directly measure body fat, which can be difficult and expensive. BMI can help identify people who may be at higher risk for certain medical problems. What are BMI measurements used for? BMI is used as a screening tool to identify possible weight problems. It helps determine whether a person is obese, overweight, a healthy weight, or underweight. BMI is useful for: Identifying a weight problem that may be related to a medical condition or may increase the risk for medical problems. Promoting changes, such as changes in diet and exercise, to help reach a healthy weight. BMI screening can be repeated to see if these changes are working. How is BMI calculated? BMI involves measuring your weight in relation to your height. Both height and weight are measured, and the BMI is calculated from those numbers. This can be done either in [place] or metric measurements. Note that charts and online BMI calculators are available to help you find your BMI quickly and easily without having to do these calculations yourself. To calculate your BMI in [place] measurements: 1.Measure your weight in pounds (lb). 2.Multiply the number of pounds by 703. For example, for a person who weighs 180 lb, multiply that number by 703, which equals 126,540. 3.Measure your height in inches. Then multiply that number by itself to get a measurement called inches squared. For example, for a person who is 70 inches tall, the inches squared measurement is 70 inches x 70 inches, which equals 4,900 inches squared. 4.Divide the total from step 2 (number of lb x 703) by the total from step 3 (inches squared): 126,540 4,900 = 25.8. This is your BMI. To calculate your BMI in metric measurements: 1.Measure your weight in kilograms (kg). 2.Measure your height in meters (m). Then multiply that number by itself to get a measurement called meters squared. For example, for a person who is 1.75 m tall, the meters squared measurement is 1.75 m x 1.75 m, which is equal to 3.1 meters squared. 3.Divide the number of kilograms (your weight) by the meters squared number. In this example: 70 3.1 = 22.6. This is your BMI. What do the results mean? BMI charts are used to identify whether you are underweight, normal weight, overweight, or obese. The following guidelines will be used: Underweight: BMI less than 18.5. Normal weight: BMI between 18.5 and 24.9. Overweight: BMI between 25 and 29.9. Obese: BMI of 30 or above. Keep these notes in mind: Weight includes both fat and muscle, so someone with a muscular build, such as an athlete, may have a BMI that is higher than 24.9. In cases like these, BMI is not an accurate measure of body fat. To determine if excess body fat is the cause of a BMI of 25 or higher, further assessments may need to be done by a health care provider. BMI is usually interpreted in the same way for men and women. Where to find more information For more information about BMI, including tools to quickly calculate your BMI, go to these websites: Centers for Disease Control and Prevention: www.cdc.gov [place] [employer]: www.heart.org National Heart, Lung, and Blood [place]: www.nhlbi.nih.gov Summary Body mass index (BMI) is a number that is calculated from a person's weight and height. BMI may help estimate how much of a person's weight is composed of fat. BMI can help identify those who may be at higher risk for certain medical problems. BMI can be measured using [place] measurements or metric measurements. BMI charts are used to identify whether you are underweight, normal weight, overweight, or obese. This information is not intended to replace advice given to you by your health care provider. Make sure you discuss any questions you have with your health care provider. Document Revised: 01/14/2020 Document Reviewed: 11/21/2019 [address] Patient Education 2022 [employer]. Follow Up Care 07/23/2023 09:05:39 With:Teofilo BRANDT, TREVOR Jimenez Address: [address] [place], [place] [id number] When: Unknown [facility] History of Present illness Narrative 06-19-2023 Nakul Vaughan DO - 06/19/2023 8:10 AM EST Note Date & Type Note Facility 06-19-2023 History of Presen t illness Narrative Reason for Appointment: Patient ID: Racquel Yadav is a 27 y.o. female who presents for TELEHEALTH FOLLOW UP and Infertility Patient presents today via telephone call for a telehealth appointment. Patients Phone #: [phone] (mobile) Current Medications: has a current medication list which includes the following prescription(s): medroxyprogesterone, medroxyprogesterone, medroxyprogesterone, and metformin. Medical History: Active Ambulatory Problems Diagnosis Date Noted No Active Ambulatory Problems Resolved Ambulatory Problems Diagnosis Date Noted No Resolved Ambulatory Problems Past Medical History: Diagnosis Date H/O LEEP 2021 Irregular periods/menstrual cycles Pap smear for cervical cancer screening 2021 PCOS (polycystic ovarian syndrome) No family history on file. Social History Tobacco Use Smoking status: Not on file Smokeless tobacco: Not on file Substance Use Topics Alcohol use: Not on file Drug use: Not on file Past Surgical History: Procedure Laterality Date CERVICAL BIOPSY W/ LOOP ELECTRODE EXCISION 07/2021 abnormal cells from pap No Known Allergies Vitals: Estimated body mass index is 31.6 kg/m as calculated from the following: Height as of 02/13/23: 5' 4 . Weight as of 04/24/23: 184 lb 1.9 oz. BP: No LMP recorded. Assessment/Plan Encounter Diagnosis Name Primary? 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 [facility] Evaluation + Plan note Note Date & Type Note Facility Evaluation + Plan note No data available for this section [facility] Evaluation note Note Date & Type Note Facility Evaluation note Diagnosis Female infertility Female infertility of unspecified origin documented in this encounter [facility] Discharge instructions Note Date & Type Note Facility Hospital Discharge instructions No data available for this section [facility] Progress note Note Date & Type Note Facility Progress note No data available for this section [facility] Summary Purpose Family History No Family History Records FoundNo Family History Records Found No data available for this section No data available for this section No Family History Records Found Advance Directives No Advanced Directives Records FoundNo Advanced Directives Records FoundNo Advanced Directives Records Found Additional Source Comments INFORMATION SOURCE (unrecogn ized section and content) DATE CREATED AUTHOR 10/31/2017 [facility] DATE CREATED AUTHOR AUTHOR'S ORGANIZ ATION 06/10/2020 [employer] DATE CREATED AUTHOR AUTHOR'S ORGANIZ ATION 07/26/2023 [facility] Reason for Visit (unrecogniz ed section and content) Reason Comments TELEHEALTH FOLLOW UP Infertility Patient Care team informatio n (unrecognized section and content) Personnel Name: Dave Red MD Address: Address: [address] [place] [address] Personnel Name: Dave Red MD Address: Address: [address] [place] [address] FOR RECORDS PERTAINING TO PATIENTS WHO ARE [...] BE BASED ON THE PRIMARY CLINICAL RECORDS. [facility] [employer] [facility]. provides no warranty or guarantee of the accuracy or completeness of information in this document.
[2023-07-27 04:08] LABS: Progesterone 18.4 ng/mL (.)
== END 2023-07-26 15:11 | disposition home or self-care (01) ==
PROVIDERS: Visit Provider Obstetrics & Gynecology
DX: N97.9 Female infertility, unspecified (principal)
CPT/HCPCS: 36415; 84144

== ENCOUNTER 2023-08-26 12:56 | Outpatient (OUT) | payer SELFPAY ==
--- OUTSIDE RECORDS SUMMARY | 2023-08-26 12:59 | XMS_ITS | CCD ---
Author Organization [facility] Care Team Providers Care Communications Attendant Name Role Phone PHYSICIAN, DEFAULT Unavailable Unavailable [...] Medication Allergies] Propensity to adverse reactions (disorder) [facility] Repository Medications Current Medications Medication Drug Class(es) Dates Sig (Normalized) Sig (Original) ibuprofen 600 mg oral tablet (2 sources) Nonsteroidal Anti-inflammator y Drug Start: 2 take 1 tablet by mouth every six hours ibuprofen 600 mg Tab 600 mg = 1 tab(s), Oral, q6hr, # 10 tab(s), Refills(s) 0, Pharmacy: [facility], 164, cm, 07/20/21 5:00:00 EDT, [...] Locations R1: This test was performed at: [facility], [address] [place] [address], [id number]- , , [facility] Comment on above: Performed By: #### 2 [id number] #### [facility] [address] [place] [id number] Ambulatory Visit Summaryon 0 07-23-2023 Ambulatory Visit [...] Follow Up with Teofilo BRANDT, Dave Rosen, [facility] When: Where: [address] [place] [address]- Medications What When Instructions Unchanged letrozole (letrozole [...] keep your urine pale yellow. ? Take sjfr-buw-tvioshc or prescription medicines. ? Eat foods that are high in fiber, such as beans, whole grains, and fresh fruits and vegetables. ? Limit foods that are high in fat and processed sugars, such as fried or sweet foods. General instructions ? Take cere-kjw-pqiznvg and prescription medicines only as told by [...] muscles that help control urination. ? Take daxc-krj-uvbtqad and prescripti (more content not included)... Normal [facility] Family Medicine Office/Clini c Noteon 07-23-2023 Family [...] denies Pt had progesterone at [facility] of [facility], letrozole Pt is trying to get - has never ovulated- not sure if this is the pain she is feeling History of Present Illness I have reviewed and verified the staff HPI to be accurate for this encounter. Portions of this record have been created with voice recognition software. Occasional wrong-word or ?dwdtx-m-nenk? substitutions may have occurred due to the [...] with this as she should contact her FUR TRIMMER Dr. Vaughan for further evaluation in which [...] of Est. Patient Straight Fwd 10-19 Min 00931 2. BMI 32.0-32.9,adult (Z68.32: Body mass index [BMI] 32.0-32.9, adult) The standard range for ages 18 and older is >=18.5 and < 25 kg/m2. Your BMI today was above this range, this falls in the overweight to obese category and there are medical benefits to weight loss. We can offer counselling, referral, a (more content not included)... Normal [facility] Comment on above: Result Comment: Elec [...] numbers. This can be done either in [place] (U.S[place] or metric measurements. Note that charts and online BMI calculators are available to help you find your BMI quickly and easily without having to do these calculations yourself. To calculate your BMI in [place] ([place] measurements: 1. Measure your weight in [...] for Disease Control and Prevention: www.cdc.gov ? [place] Heart Association: www.heart.org ? National Heart, Lung, and Blood [place]: www.nhlbi.nih.gov Summary ? Body mass index (BMI) is a number that is calculated from a person's weight and height. ? BMI may help estimate how much of a person's weight is composed of fat. BMI can help identify those who may be at higher risk for certain medical problems. ? BMI can be measured using Turkmen measurements or metric measurements. ? BMI charts are used to identify whether you are underweight, normal weight, overweight, or obese. This information is not intended to replace advice given to you by your health care provider. Make sure you discuss any questions you have with your health care provider. Document Revised: 01/14/2020 Document Reviewed: 11/21/2019 [employer] Patient Education ? 2022 [employer] Urology Urinary Frequency, Adult Urinary frequency [...] instructions at home: (more content not included)... [facility] Provider Letteron 07-23-2023 Provider Letter (Inserted Image. Minerva ble to display) July 23, 2023 RACQUEL YADAV [address] [place] [address] : 1995 To Whom It May Concern, Please excuse above patient from work. Date of Illness: 07/23/2023 May Return to Work On:07/24/2023 Sincerely, [facility] [address] [place] [address], [place] [address] [facility] FUR TRIMMER - Office Visiton FUR TRIMMER - Office Visit Diagnoses/Problems Assessed History of PCOS (polycystic ovarian syndrome) (256.4) (E28.2) Fertility testing (V26.21) (Z31.41) Screening for STD (sexually transmitted disease) (V74.5) (Z11.3) PCOS (polycystic ovarian syndrome) (256.4) (E28.2) Oligomenorrhea (626.1) (N91.5) Orders Anti Mullerian Hormone; Status:Active; Requested for:83Izg0100; 17-Hydroxyprogesterone, Serum; Status:Active; Requested for:10Xzv5901; Antithyroid Perox. Ab; Status:Active; Requested for:46Bzd8915; Complete Blood Count; Status:Active; Requested for:03Lro1375; DHEA Sulfate, Serum; Status:Active; Requested for:68Znr8671; GC + Chlamydia By Amplified Detection; Status:Active; Requested for:68Lck6665; HCG, Beta Quantitative; Status:Active; Requested for:55Dpa2740; Hemoglobin A1C; Status:Active; Requested for:19Qas2932; Hepatitis B Surface Antigen; Status:Active; Requested for:73Kpg2442; Hepatitis C Antibody Test; Status:Active; Requested for:97Gqm0880; HIV 1/2 ANTIGEN/ANTIBODY SCREEN WITH REFLEX TO CONFIRMATION; Status:Active; Requested for:17Vrl6751; IO Ultrasound, pelvic complete; Status:Hold For - [...] Blood type [ ] Genetic Screen with [employer] - will consider [x ] Take vitamins, vitamin D [x ] Return to see me after workup complete to discuss management plan [x ] Education: New infertility packet to be mailed to patient [x ] Engaged MD albin Johnson MD [facility] [phone] [place] [phone] [place] Provider Impressions 24 year old with oligomenorrhea, [...] Blood type [ ] Genetic Screen with [employer] - will consider [x ] Take vitamins, vitamin D [x ] Return to see me after workup complete to discuss management plan [x ] Education: New infertility packet to be mailed to patient [x ] Engaged MD albin Johnson MD Reproductive [facility]in[facility] [phone] [place] [facility] [phone] [place] Appointment Duration:. 45 minutes; greater than half [...] trying for 4 years. History of Present Qauncsr1606/09/2020 11:15AM RACQUEL VAZQUEZ , 24 year is contacted for an (audio-visual, or audio only) Telehealth visit. Today's visit was provided through telemedicine conferencing: Using [employer] platform. Consent: The concept of telemedicine? 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 Prior established pregnancies: No Toxic habits: Occasional [...] Recorded: 09Jun2020 11:02AM Height5 ft 5 in Nnjdbi342 lb BMI Lpcplxqglo75.46 BSA Calculated1.82 Tobacco Useb) No Fall Screeninga) No falls within the last year [id number] Gravida0 Para0 Pain Scale0 Physical Exam This is a telehealth appointment Signatures Electronically signed by : Rayshawn Johnson MD; Jun 09 2020 11:52AM EST (Author) Normal [facility] HUMERUS LEFTon 12-01-2016 [facility] LEFT [facility] [address] [place] [address] ==Patient Name: RACQUEL VAZQUEZ : 1995Sex: FAge: Race: WhiteMRN: [id number]. Location: 84Patient Status: Date: 12/01/2016 4:25:00 PMCompleted Date: 12/01/2016 04:28 PMRequesting Provider: CARI GOOD Attending Provider: Report Copy To: Signs & Symptoms: S42.352D Displ commnt fx shaft of humer, l arm, 7thD W54Bjeuqwp: AthenaComments: , , Views (X-RAY, HUMERUS): AP, Lateral , Weight Bearing?: Y , With or Without Brace/Cast/Collar: Without , With Magnification Marker?: N , , , Ordering Provider - CARI GOOD MD , Rendering Provider - CARI GOOD MD , Exam: HUMERUS LEFTAccession #: [id number] =========HUMERUS LEFT 12/01/2016 4:28 PM EDT SIGNS [...] Electronically signed by:Subhash Campos M.D.. Transcribed by: [email or web address], User Resident: Electronically Signed by: SUBHASH CAMPOS @ 12/01/2016 04:35 PM Normal [facility] Comment on above: Order Comment: , , V iews (X-RAY, HUMERUS): AP, Lateral , Weight Bearing?: Y , With or Without Brace/Cast/Collar: Without , With Magnification Marker?: N , , , Ordering Provider - CARI GOOD MD , Rendering Provider - CARI GOOD MD , Vital Signs Date Time Vital Sign Value Performing Clinician Facility 07-23-2023 10:31-0400 Blood Pressure Location Cristi Saldana [facility] 07-23-2023 10:31-0400 Body temperature 98.24 [degF] Cristi Saldana [facility] 07-23-2023 10:31-0400 Diastolic blood pressure 74 mm[Hg] Cristi Saldana [facility] 07-23-2023 10:31-0400 Heart rate 81 /min Cristi Saldana [facility] 07-23-2023 10:31-0400 SaO2% (BldA) [Mass fraction] 97 % Cristi Saldana [facility] 07-23-2023 10:31-0400 Systolic blood pressure 118 mm[Hg] Cristi Saldana [facility] 07-29-2021 18:50-0400 Body temperature 96.98 [degF] Mark Zuhair [facility] 07-29-2021 18:50-0400 Diastolic blood pressure 58 mm[Hg] Mark Zuhair [facility] 07-29-2021 18:50-0400 Heart rate 70 /min Mark Zuhair [facility] 07-29-2021 18:50-0400 Respiratory rate 12 /min Mark Zuhair [facility] 07-29-2021 18:50-0400 SaO2% (BldA) [Mass fraction] 99 % Mark Zuhair [facility] 07-29-2021 18:50-0400 Systolic blood pressure 100 mm[Hg] Mark Moffett [facility] 07-29-2021 17:50-0400 Body temperature 97.52 [degF] Mark Moffett [facility] 07-29-2021 17:50-0400 Diastolic blood pressure 60 mm[Hg] Mark Moffett [facility] 07-29-2021 17:50-0400 Heart rate 70 /min Mark Moffett [facility] 07-29-2021 17:50-0400 Respiratory rate 12 /min Mark Moffett [facility] 07-29-2021 17:50-0400 SaO2% (BldA) [Mass fraction] 99 % Mark Moffett [facility] 07-29-2021 17:50-0400 Systolic blood pressure 110 mm[Hg] Mark Moffett [facility] 07-29-2021 17:49-0400 Body temperature 97.52 [degF] Mark Moffett [facility] 07-29-2021 17:49-0400 Diastolic blood pressure 79 mm[Hg] Mark Moffett [facility] 07-29-2021 17:49-0400 Heart rate 69 /min aMrk Moffett [facility] 07-29-2021 17:49-0400 Respiratory rate 12 /min Mark Moffett [facility] 07-29-2021 17:49-0400 SaO2% (BldA) [Mass fraction] 99 % Mark Moffett [facility] 07-29-2021 17:49-0400 Systolic blood pressure 113 mm[Hg] Mark Moffett [facility] 07-29-2021 17:10-0400 Respiratory rate 24 /min Mark Moffett [facility] 07-29-2021 17:05-0400 Respiratory rate 24 /min Mark Moffett [facility] 07-29-2021 17:00-0400 Respiratory rate 27 /min Mark Moffett [facility] 07-29-2021 14:40-0400 Heart rate 72 /min Mark Moffett [facility] 07-29-2021 14:37-0400 Blood Pressure Location Mark Moffett [facility] 07-29-2021 14:37-0400 Mean blood pressure 93 mm[Hg] Mark Moffett [facility] 07-29-2021 14:37-0400 Blood Pressure Location Mark Moffett [facility] 07-29-2021 14:37-0400 Body temperature 98.24 [degF] Mark Moffett [facility] 07-29-2021 14:37-0400 BP/Pulse Patient Position Mark Moffett [facility] 07-29-2021 14:37-0400 Mean blood pressure 91 mm[Hg] Mark Moffett [facility] Encounters Encounter Date Encounter Type Care Provider Facility Start: 07-23-2023 End: 07-24-2023 ambulatory Cristi Saldana Facility:[facility] Start: 07-23-2023 End: 07-23-2023 Lab Drop off Cristi Saldana [facility] Start: 07-23-2023 End: 07-23-2023 Patient encounter procedure Cristi Saldana [facility] Start: 06-19-2023 End: 06-19-2023 Phys/qhp telephone evaluation 5-10 min Nakul Vaughan DO Work Phone: [facility] Comment on above: Female infertility Start: 09-21-2021 End: 09-21-2021 Lab Drop off Steph Brady [facility] Start: 07-29-2021 End: 07-29-2021 Admission to same day surgery center Mark Moffett [facility] Start: 12-01-2016 End: 12-02-2016 Ambulatory VITHAL SHENDGE Facility:[facility] Start: 11-01-2016 End: 11-02-2016 Ambulatory DEFAULT PHYSICIAN Facility:[facility] Procedures Date Procedure Procedure Detail Performing Clinician Start: 09-15-2016 left humerus ORIF Mark Moffett Appendectomy Mark Moffett Payers Date Payer Category Payer Unknown [id number] 1995 Unknown [id number] 1995 Unknown [id number] Unknown [id number] Unknown Social History Date Type Detail Facility Start: 12-14-2020 End: 07-23-2023 Tobacco smoking status Never smoked tobacco (finding) [facility] Tobacco smoking status Never [facility] Sex Assigned At Female [facility] unknown [facility] Start: 1995 Sex Assigned At Female [facility] Start: 01-09-2023 Gender identity Identifies as female gender (finding) [facility] Start: 01-09-2023 Sexual orientation Heterosexual (finding) [facility] Functional Status Date Assessment Result Facility 07-23-2023 Functional Status N/A [facility] Evaluation + Plan note 07-23-2023 Note Date & Type Note Facility 07-23-2023 Evaluation + Plan note Diagnostic Tests PendingUrine Culture 07/23/23 [facility] Hospital Discharge instructions 03-18-2024 Note Date [...] to keep your urine pale yellow. ?Take foxo-olw-eekafva or prescription medicines. ?Eat foods that are high in fiber, such as beans, whole grains, and fresh fruits and vegetables. ?Limit foods that are high in fat and processed sugars, such as fried or sweet foods. General instructions Take ikjc-dgg-qbscpkp and prescription medicines only as told by [...] the muscles that help control urination. Take wtyq-nic-gbpwmnq and prescription medicines only as told by your health care provider. Contact a health care provider if your symptoms do not improve or get worse. This information is not intended to replace advice given to you by your health care provider. Make sure you discuss any questions you have with your health care provider. Document Revised: 11/26/2020 Document Reviewed: 11/26/2020 [employer] Patient Education 2022 [employer]. 07/23/2023 10:36:54 BMI for Adults BMI for [...] numbers. This can be done either in [place] ([place] or metric measurements. Note that charts and online BMI calculators are available to help you find your BMI quickly and easily without having to do these calculations yourself. To calculate your BMI in [place] ([place] measurements: 1.Measure your weight in pounds [...] Centers for Disease Control and Prevention: www.cdc.gov [place] Heart Association: www.heart.org National Heart, Lung, and Blood [place]: www.nhlbi.nih.gov Summary Body mass index (BMI) is a number that is calculated from a person's weight and height. BMI may help estimate how much of a person's weight is composed of fat. BMI can help identify those who may be at higher risk for certain medical problems. BMI can be measured using Turkmen measurements or metric measurements. BMI charts are used to identify whether you are underweight, normal weight, overweight, or obese. This information is not intended to replace advice given to you by your health care provider. Make sure you discuss any questions you have with your health care provider. Document Revised: 01/14/2020 Document Reviewed: 11/21/2019 [employer] Patient Education 2022 [employer]. Follow Up Care 07/23/2023 09:05:39 With:Teofilo BRANDT, TREVOR Jimenez Address: [address] [place], [place] [id number] When: Unknown [facility] History of Present illness Narrative 06-19-2023 Nakul Vaughan DO - 06/19/2023 8:10 AM EST Note Date & Type Note Facility 06-19-2023 History of Presen t illness Narrative Reason for Appointment: Patient ID: Racquel Yadav is a 27 y.o. female who presents for TELEHEALTH FOLLOW UP and Infertility Patient presents today via telephone call for a telehealth appointment. Patients Phone #: [phone] (mobile) Current Medications: has a current medication [...] Nakul Vaughan DO documented in this encounter 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 [facility] Evaluation + Plan note Note Date & Type Note Facility Evaluation + Plan note No data available for this section [facility] Evaluation note Note Date & Type Note Facility Evaluation note Diagnosis Female infertility Female infertility of unspecified origin documented in this encounter [facility] Discharge instructions Note Date & Type Note Facility Hospital Discharge instructions No data available for this section [facility] Progress note Note Date & Type Note Facility Progress note No data available for this section [facility] Summary Purpose Family History No [...] DATE CREATED AUTHOR 10/31/[address] [facility] DATE CREATED AUTHOR AUTHOR'S ORGANIZ ATION 06/10/2020 [facility] DATE CREATED AUTHOR AUTHOR'S ORGANIZ ATION 07/26/2023 [facility] Reason for Visit (unrecogniz ed section and content) Reason Comments TELEHEALTH FOLLOW UP Infertility Patient Care team informatio n (unrecognized section and content) Personnel Name: Dave Red MD Address: Address: [address] [place] [address] Personnel Name: Dave Red MD Address: Address: [address] [place] [address] FOR RECORDS PERTAINING TO PATIENTS WHO ARE [...] BE BASED ON THE PRIMARY CLINICAL RECORDS. [facility]. provides no warranty or guarantee of the accuracy or completeness of information in this document.
[2023-08-28 08:11] LABS: Progesterone 9.2 ng/mL (.)
== END 2023-08-26 12:57 | disposition home or self-care (01) ==
LOC: LAB 12:56
PROVIDERS: Visit Provider Obstetrics & Gynecology
DX: N97.9 Female infertility, unspecified (principal)
CPT/HCPCS: 36415; 84144

== ENCOUNTER 2023-09-13 11:26 | Outpatient (RCR) | payer SELFPAY ==
[2023-09-13 12:29] LABS: HCG Quantitative <1 mIU/mL
[2023-09-15 12:03] LABS: HCG Quantitative <1 mIU/mL
== END 2023-10-05 08:43 | disposition home or self-care (01) ==
LOC: LAB 11:26
PROVIDERS: Visit Provider Obstetrics & Gynecology
DX: N92.6 Irregular menstruation, unspecified (principal)
CPT/HCPCS: 36415; 84702

== ENCOUNTER 2023-09-27 15:39 | Outpatient (OUT) | payer SELFPAY ==
--- OUTSIDE RECORDS SUMMARY | 2023-09-27 15:59 | XMS_ITS | CCD ---
Author Organization [facility] ion [facility] Care Team Providers Care Taker Down Name Role Phone PHYSICIAN, DEFAULT Unavailable Unavailable [...] Medication Allergies] Propensity to adverse reactions (disorder) [facility] Medications Current Medications Medication Drug Class(es) Dates Sig (Normalized) Sig (Original) ibuprofen 600 mg oral tablet (2 sources) Nonsteroidal Anti-inflammator y Drug Start: 2 take 1 tablet by mouth every six hours ibuprofen 600 mg Tab 600 mg = 1 tab(s), Oral, q6hr, # 10 tab(s), Refills(s) 0, Pharmacy: [facility], 164, cm, 07/20/21 5:00:00 [...] Locations R1: This test was performed at: [facility], [address] [place] [address], [phone] , , [facility] Comment on above: Performed By: #### [id number] #### [facility] [address] [place] [id number] Ambulatory Visit Summaryon 0 07-23-2023 Ambulatory Visit [...] Follow Up with Teofilo BRANDT, Dave Rosen, [facility] When: Where: [address] [place] [address]- Medications What When Instructions Unchanged letrozole (letrozole [...] keep your urine pale yellow. ? Take coca-fwz-dlhkkkt or prescription medicines. ? Eat foods that are high in fiber, such as beans, whole grains, and fresh fruits and vegetables. ? Limit foods that are high in fat and processed sugars, such as fried or sweet foods. General instructions ? Take bfns-aia-pzmusls and prescription medicines only as told by [...] muscles that help control urination. ? Take wnju-avr-etqxkjk and prescripti (more content not included)... Normal [facility] Noteon 07-23-2023 Family [...] denies Pt had progesterone at beginning of , letrozole Pt is trying to get - has never ovulated- not sure if this is the pain she is feeling History of Present Illness I have reviewed and verified the staff HPI to be accurate for this encounter. Portions of this record have been created with voice recognition software. Occasional wrong-word or ?zsqgw-p-oglf? substitutions may have occurred due to the [...] with this as she should contact her ASSISTANT HALL DIRECTOR Dr. Vaughan for further evaluation in which [...] of Est. Patient Straight Fwd 10-19 Min 89146 2. BMI 32.0-32.9,adult (Z68.32: Body mass index [BMI] 32.0-32.9, adult) The standard range for ages 18 and older is >=18.5 and < 25 kg/m2. Your BMI today was above this range, this falls in the overweight to obese category and there are medical benefits to weight loss. We can offer counselling, referral, a (more content not included)... Normal [facility] Comment on above: Result Comment: Elec tronically Signed By: Les AVALOS, Cristi Messer\.mignon\Date and Time Signed: 07/23/23 11:06 EDT Patient [...] numbers. This can be done either in [place] (U.S.) or metric measurements. Note that charts and online BMI calculators are available to help you find your BMI quickly and easily without having to do these calculations yourself. To calculate your BMI in [place] (U.S.) measurements: 1. Measure your weight in [...] for Disease Control and Prevention: www.cdc.gov ? [place] Heart Association: www.heart.org ? National Heart, Lung, and Blood [place]: www.nhlbi.nih.gov Summary ? Body mass index (BMI) is a number that is calculated from a person's weight and height. ? BMI may help estimate how much of a person's weight is composed of fat. BMI can help identify those who may be at higher risk for certain medical problems. ? BMI can be measured using [place] measurements or metric measurements. ? BMI charts are used to identify whether you are underweight, normal weight, overweight, or obese. This information is not intended to replace advice given to you by your health care provider. Make sure you discuss any questions you have with your health care provider. Document Revised: 01/14/2020 Document Reviewed: 11/21/2019 [employer] Patient Education ? 2022 [employer] Urology Urinary Frequency, Adult Urinary frequency [...] instructions at home: (more content not included)... [facility] Provider Letteron 07-23-2023 Provider Letter (Inserted Image. Minerva ble to display) July 23, 2023 RACQUEL YADAV [address] [place] [address] : 1995 To Whom It May Concern, Please excuse above patient from work. Date of Illness: 07/23/2023 May Return to Work On:07/24/2023 Sincerely, [facility] [address] [place] [address], [place] [address] [facility] ASSISTANT HALL DIRECTOR - Office Visiton ASSISTANT HALL DIRECTOR - Office Visit Diagnoses/Problems Assessed History of PCOS (polycystic ovarian syndrome) (256.4) (E28.2) Fertility testing (V26.21) (Z31.41) Screening for STD (sexually transmitted disease) (V74.5) (Z11.3) PCOS (polycystic ovarian syndrome) (256.4) (E28.2) Oligomenorrhea (626.1) (N91.5) Orders Anti Mullerian Hormone; Status:Active; Requested for:53Mcm1607; 17-Hydroxyprogesterone, Serum; Status:Active; Requested for:43Fxa9550; Antithyroid Perox. Ab; Status:Active; Requested for:12Zzs3543; Complete Blood Count; Status:Active; Requested for:07Brn7657; DHEA Sulfate, Serum; Status:Active; Requested for:44Vms6177; GC + Chlamydia By Amplified Detection; Status:Active; Requested for:64Rpu6823; HCG, Beta Quantitative; Status:Active; Requested for:21Btc0255; Hemoglobin A1C; Status:Active; Requested for:20Rdr9286; Hepatitis B Surface Antigen; Status:Active; Requested for:32Dmp4004; Hepatitis C Antibody Test; Status:Active; Requested for:88Tbd1961; HIV 1/2 ANTIGEN/ANTIBODY SCREEN WITH REFLEX TO CONFIRMATION; Status:Active; Requested for:98Bbb5081; IO Ultrasound, pelvic complete; Status:Hold For - [...] Blood type [ ] Genetic Screen with [email or web address] - will consider [x ] Take vitamins, vitamin D [x ] Return to see me after workup complete to discuss management plan [x ] Education: New infertility packet to be mailed to patient [x ] Engaged MD modules Rayshawn Johnson MD [facility] [phone] [facility] [phone] [facility] Provider Impressions 24 year old with oligomenorrhea, [...] Blood type [ ] Genetic Screen with [email or web address] - will consider [x ] Take vitamins, vitamin D [x ] Return to see me after workup complete to discuss management plan [x ] Education: New infertility packet to be mailed to patient [x ] Engaged MD albin Johnson MD [facility] [phone] [facility] [phone] [facility] Appointment Duration:. 45 minutes; greater than half [...] trying for 4 years. History of Present Hdydjdh3706/09/2020 11:15AM RACQUEL VAZQUEZ , 24 year is contacted for an (audio-visual, or audio only) Telehealth visit. Today's visit was provided through telemedicine conferencing: Using [employer] platform. Consent: The concept of telemedicine? 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 [employer] Prior established pregnancies: No Toxic habits: Occasional [...] Recorded: 09Jun2020 11:02AM Height5 ft 5 in Qccnbt216 lb BMI Hyxralpibi40.46 BSA Calculated1.82 Tobacco Useb) No Fall Screeninga) No falls within the last year [id number] Gravida0 Para0 Pain Scale0 Physical Exam This is a telehealth appointment Signatures Electronically signed by : Rayshawn Johnson MD; Jun 09 2020 11:52AM EST (Author) Normal [facility] HUMERUS LEFTon 12-01-2016 [facility] LEFT [facility] [address] [place] [address] ==Patient Name: RACQUEL VAZQUEZ : 1995Sex: FAge: Race: WhiteMRN: [id number]. Location: 84Patient Status: Date: 12/01/2016 4:25:00 PMCompleted Date: 12/01/2016 04:28 PMRequesting Provider: CARI GOOD Attending Provider: Report Copy To: Signs & Symptoms: S42.352D Displ commnt fx shaft of humer, l arm, 7thD G45Vbxnegp: AthenaComments: , , Views (X-RAY, HUMERUS): AP, Lateral , Weight Bearing?: Y , With or Without Brace/Cast/Collar: Without , With Magnification Marker?: N , , , Ordering Provider - CARI GOOD MD , Rendering Provider - CARI GOOD MD , Exam: HUMERUS LEFTAccession #: [id number] =========HUMERUS LEFT 12/01/2016 4:28 PM EDT SIGNS [...] Electronically signed by:Subhash Campos M.D.. Transcribed by: [email or web address], User Resident: Electronically Signed by: SUBHASH CAMPOS @ 12/01/2016 04:35 PM Normal [facility] Comment on above: Order Comment: , , V iews (X-RAY, HUMERUS): AP, Lateral , Weight Bearing?: Y , With or Without Brace/Cast/Collar: Without , With Magnification Marker?: N , , , Ordering Provider - CARI GOOD MD , Rendering Provider - CARI GOOD MD , Vital Signs Date Time Vital Sign Value Performing Clinician Facility 07-23-2023 10:31-0400 Blood Pressure Location Cristi Saldana [facility] 07-23-2023 10:31-0400 Body temperature 98.24 [degF] Cristi Saldana [facility] 07-23-2023 10:31-0400 Diastolic blood pressure 74 mm[Hg] Cristi Saldana [facility] 07-23-2023 10:31-0400 Heart rate 81 /min Cristi Saldana [facility] 07-23-2023 10:31-0400 SaO2% (BldA) [Mass fraction] 97 % Cristi Saldana [facility] 07-23-2023 10:31-0400 Systolic blood pressure 118 mm[Hg] Cristi Saldana [facility] 07-29-2021 18:50-0400 Body temperature 96.98 [degF] Amrk Zuhair [facility] 07-29-2021 18:50-0400 Diastolic blood pressure 58 mm[Hg] Mark Zuhair [facility] 07-29-2021 18:50-0400 Heart rate 70 /min Mark Zuhair [facility] 07-29-2021 18:50-0400 Respiratory rate 12 /min Mark Moffett [facility] 07-29-2021 18:50-0400 SaO2% (BldA) [Mass fraction] 99 % Mark Zuhair [facility] 07-29-2021 18:50-0400 Systolic blood pressure 100 mm[Hg] Mark Moffett [facility] 07-29-2021 17:50-0400 Body temperature 97.52 [degF] Mark Moffett [facility] 07-29-2021 17:50-0400 Diastolic blood pressure 60 mm[Hg] Mark Moffett [facility] 07-29-2021 17:50-0400 Heart rate 70 /min Mark Shenten [facility] 07-29-2021 17:50-0400 Respiratory rate 12 /min Mark Moffett [facility] 07-29-2021 17:50-0400 SaO2% (BldA) [Mass fraction] 99 % Mark Moffett [facility] 07-29-2021 17:50-0400 Systolic blood pressure 110 mm[Hg] Mark Moffett [facility] 07-29-2021 17:49-0400 Body temperature 97.52 [degF] Mark Moffett [facility] 07-29-2021 17:49-0400 Diastolic blood pressure 79 mm[Hg] Mark Moffett [facility] 07-29-2021 17:49-0400 Heart rate 69 /min Mark Moffett [facility] 07-29-2021 17:49-0400 Respiratory rate 12 /min Mark Moffett [facility] 07-29-2021 17:49-0400 SaO2% (BldA) [Mass fraction] 99 % Mark Moffett [facility] 07-29-2021 17:49-0400 Systolic blood pressure 113 mm[Hg] Mark Shenten [facility] 07-29-2021 17:10-0400 Respiratory rate 24 /min Mark Moffett [facility] 07-29-2021 17:05-0400 Respiratory rate 24 /min Mark Moffett [facility] 07-29-2021 17:00-0400 Respiratory rate 27 /min Mark Moffett [facility] 07-29-2021 14:40-0400 Heart rate 72 /min Mark Moffett [facility] 07-29-2021 14:37-0400 Blood Pressure Location Mark Moffett [facility] 07-29-2021 14:37-0400 Mean blood pressure 93 mm[Hg] Mark Moffett [facility] 07-29-2021 14:37-0400 Blood Pressure Location Mark Moffett [facility] 07-29-2021 14:37-0400 Body temperature 98.24 [degF] Mark Moffett [facility] 07-29-2021 14:37-0400 BP/Pulse Patient Position Mark Moffett [facility] 07-29-2021 14:37-0400 Mean blood pressure 91 mm[Hg] Mark Moffett [facility] Encounters Encounter Date Encounter Type Care Provider Facility Start: 07-23-2023 End: 07-24-2023 ambulatory Cristi Saldana Facility:[facility] Start: 07-23-2023 End: 07-23-2023 Lab Drop off Cristi Saldana [facility] Start: 07-23-2023 End: 07-23-2023 Patient encounter procedure Cristi Saldana [facility] Start: 06-19-2023 End: 06-19-2023 Phys/qhp telephone evaluation 5-10 min Nakul Vaughan DO Work Phone: [facility] Comment on above: Female infertility Start: 09-21-2021 End: 09-21-2021 Lab Drop off Steph Brady [facility] Start: 07-29-2021 End: 07-29-2021 Admission to same day surgery center Mark Moffett [facility] Start: 12-01-2016 End: 12-02-2016 Ambulatory VITHAL SHENDGE Facility:[facility] Start: 11-01-2016 End: 11-02-2016 Ambulatory DEFAULT PHYSICIAN Facility:[facility] Procedures Date Procedure Procedure Detail Performing Clinician Start: 09-15-2016 left humerus ORIF Mark Moffett Appendectomy Mark Zuhair Payers Date Payer Category Payer Unknown [id number] 1995 Unknown [id number] 1995 Unknown [id number] Unknown [id number] Unknown Social History Date Type Detail Facility Start: 12-14-2020 End: 07-23-2023 Tobacco smoking status Never smoked tobacco (finding) [facility] Tobacco smoking status Never [facility] Sex Assigned At Female [facility] Start: 1995 Sex Assigned At Female [facility] Start: 01-09-2023 Gender identity Identifies as female gender (finding) [facility] Start: 01-09-2023 Sexual orientation Heterosexual (finding) [facility] Functional Status Date Assessment Result Facility 07-23-2023 Functional Status N/A [facility] Evaluation + Plan note 07-23-2023 Note Date & Type Note Facility 07-23-2023 Evaluation + Plan note Diagnostic Tests PendingUrine Culture 07/23/23 [facility] Discharge instructions 07-23-2023 Note Date & Type Note Facility [...] to keep your urine pale yellow. ?Take nxtu-xkl-hduaxzj or prescription medicines. ?Eat foods that are high in fiber, such as beans, whole grains, and fresh fruits and vegetables. ?Limit foods that are high in fat and processed sugars, such as fried or sweet foods. General instructions Take iaku-ums-jpzkdnf and prescription medicines only as told by [...] the muscles that help control urination. Take shzu-axp-jiunuhr and prescription medicines only as told by your health care provider. Contact a health care provider if your symptoms do not improve or get worse. This information is not intended to replace advice given to you by your health care provider. Make sure you discuss any questions you have with your health care provider. Document Revised: 11/26/2020 Document Reviewed: 11/26/2020 [employer] Patient Education 2022 [employer]. 07/23/2023 10:36:54 BMI for Adults BMI for [...] numbers. This can be done either in [place] ([place].S[place] or metric measurements. Note that charts and online BMI calculators are available to help you find your BMI quickly and easily without having to do these calculations yourself. To calculate your BMI in [place] ([place].S.) measurements: 1.Measure your weight in pounds [...] Centers for Disease Control and Prevention: www.cdc.gov [place] Heart Association: www.heart.org National Heart, Lung, and Blood [place]: www.nhlbi.nih.gov Summary Body mass index (BMI) is a number that is calculated from a person's weight and height. BMI may help estimate how much of a person's weight is composed of fat. BMI can help identify those who may be at higher risk for certain medical problems. BMI can be measured using [place]ar[place] measurements or metric measurements. BMI charts are used to identify whether you are underweight, normal weight, overweight, or obese. This information is not intended to replace advice given to you by your health care provider. Make sure you discuss any questions you have with your health care provider. Document Revised: 01/14/2020 Document Reviewed: 11/21/2019 [employer] Patient Education 2022 [employer]. Follow Up Care 07/23/2023 09:05:39 With:Teofilo BRANDT, TREVOR Jimenez Address: [address] [place], [place] [id number] When: Unknown [facility] History of Present illness Narrative 06-19-2023 Nakul Vaughan DO - 06/19/2023 8:10 AM EST Note Date & Type Note Facility 06-19-2023 History of Presen t illness Narrative Reason for Appointment: Patient ID: Racquel Yadav is a 27 y.o. female who presents for TELEHEALTH FOLLOW UP and Infertility Patient presents today via telephone call for a telehealth appointment. 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 [facility] Evaluation + Plan note Note Date & Type Note Facility Evaluation + Plan note No data available for this section [facility] Evaluation note Note Date & Type Note Facility Evaluation note Diagnosis Female infertility Female infertility of unspecified origin documented in this encounter [facility] Discharge instructions Note Date & Type Note Facility Hospital Discharge instructions No data available for this section [facility] Progress note Note Date & Type Note Facility Progress note No data available for this section [facility] Summary Purpose Family History No Family History Records FoundNo Family History Records Found No data available for this section No data available for this section No Family History Records Found Advance Directives No Advanced Directives Records FoundNo Advanced Directives Records FoundNo Advanced Directives Records Found Additional Source Comments INFORMATION SOURCE (unrecogn ized section and content) DATE CREATED AUTHOR 10/31/2017 [facility] DATE CREATED AUTHOR AUTHOR'S ORGANIZ ATION 06/10/2020 [facility] DATE CREATED AUTHOR AUTHOR'S ORGANIZ ATION 07/26/2023 [facility] Reason for Visit (unrecogniz ed section and content) Reason Comments TELEHEALTH FOLLOW UP Infertility Patient Care team informatio n (unrecognized section and content) Personnel Name: Dave Red MD Address: Address: [address] [place] [address] Personnel Name: Dave Red MD Address: Address: [address] [place] [address] FOR RECORDS PERTAINING TO PATIENTS WHO ARE [...] BE BASED ON THE PRIMARY CLINICAL RECORDS. [employer] [facility]. provides no warranty or guarantee of the accuracy or completeness of information in this document.
[2023-09-29 08:15] LABS: Progesterone 0.1 ng/mL (.)
== END 2023-09-27 15:40 | disposition home or self-care (01) ==
LOC: LAB 15:41
PROVIDERS: Visit Provider Obstetrics & Gynecology
DX: N97.0 Female infertility associated with anovulation (principal)
CPT/HCPCS: 36415; 84144

== ENCOUNTER 2023-10-29 13:18 | Day surgery (SDC) | payer OTHER, SELFPAY ==
--- NOTE | 2023-10-29 | FL_ITS ---
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 TECHNIQUE: Informed consent was obtained. A sterile vaginal speculum was introduced and, following cleansing of the cervix, a balloon-tipped catheter was inserted into the endometrial cavity. The procedure was then completed in the usual manner with water-soluble contrast. Standard level fluoroscopic mode of operation utilized. FINDINGS: FALLOPIAN TUBES: Patent fallopian tubes bilaterally. There is mild ectasia of the distal right and mid to distal left fallopian tubes ENDOMETRIAL CAVITY: No scarring, filling defects, or dilatation. OTHER: Negative. FL/FL hysterosalpingography IMPRESSION: Bilaterally patent fallopian tubes Mild fallopian tube ectasia, nonspecific Electronically authenticated by: RUSSELL ULRICH Date: 10/29/2023 15:23
--- OUTSIDE RECORDS SUMMARY | 2023-10-29 13:40 | XMS_ITS | CCD ---
Author Organization [facility] Care Team Providers Care Auto Refinisher Name Role Phone PHYSICIAN, DEFAULT Unavailable Unavailable [...] Medication Allergies] Propensity to adverse reactions (disorder) [facility] Repository Medications Current Medications Medication Drug Class(es) Dates Sig (Normalized) Sig (Original) ibuprofen 600 mg oral tablet (2 sources) Nonsteroidal Anti-inflammator y Drug Start: 2 take 1 tablet by mouth every six hours ibuprofen 600 mg Tab 600 mg = 1 tab(s), Oral, q6hr, # 10 tab(s), Refills(s) 0, Pharmacy: [facility], 164, cm, 07/20/21 5:00:00 [...] 12:09 EDT FREE TEXT SOURCE: Cristi Saldana PA-C. Les AVALOS, Cristi Palma. FINAL REPORTS Final Report [] Verified Date/Time: 07/25/2023 07:26 EDT 5,000 cfu/ml Mixed skin contaminants Performing Locations R1: This test was performed at: [facility], [address] [place] [address], [id number] , , [facility] Comment on above: Performed By: #### 2 [id number] #### [facility] [address] [place] [address] Ambulatory Visit Summaryon 0 07-23-2023 Ambulatory Visit [...] Follow Up with Teofilo BRANDT, Dave Rosen, [facility] When: Where: [address] [place] [address]- Medications What When Instructions Unchanged letrozole (letrozole [...] keep your urine pale yellow. ? Take lqjx-che-tikizpo or prescription medicines. ? Eat foods that are high in fiber, such as beans, whole grains, and fresh fruits and vegetables. ? Limit foods that are high in fat and processed sugars, such as fried or sweet foods. General instructions ? Take yjkh-vbb-abdfhsn and prescription medicines only as told by [...] muscles that help control urination. ? Take eliu-pcp-xyciuoh and prescripti (more content not included)... Normal [facility] Family Medicine Office/Clini c Noteon 07-23-2023 Family [...] denies Pt had progesterone at [facility], letrozole Pt is trying to get - has never ovulated- not sure if this is the pain she is feeling History of Present Illness I have reviewed and verified the staff HPI to be accurate for this encounter. Portions of this record have been created with voice recognition software. Occasional wrong-word or ?eeyao-k-xegc? substitutions may have occurred due to the inherent limitations of voice recognition software. 27-year-old female presents to [facility] care today with chief complaint of possible [...] with this as she should contact her DOG HAIR CLIPPER Dr. Vaughan for further evaluation in which [...] of Est. Patient Straight Fwd 10-19 Min 77904 2. BMI 32.0-32.9,adult (Z68.32: Body mass index [BMI] 32.0-32.9, adult) The standard range for ages 18 and older is >=18.5 and < 25 kg/m2. Your BMI today was above this range, this falls in the overweight to obese category and there are medical benefits to weight loss. We can offer counselling, referral, a (more content not included)... Normal [facility] Comment on above: Result Comment: [...] numbers. This can be done either in Ivorian (U.S.) or metric measurements. Note that charts and online BMI calculators are available to help you find your BMI quickly and easily without having to do these calculations yourself. To calculate your BMI in Ivorian (U.S.) measurements: 1. Measure your weight in [...] for Disease Control and Prevention: www.cdc.gov ? [place] Heart Association: www.heart.org ? National Heart, Lung, and Blood [place]: www.nhlbi.nih.gov Summary ? Body mass index (BMI) is a number that is calculated from a person's weight and height. ? BMI may help estimate how much of a person's weight is composed of fat. BMI can help identify those who may be at higher risk for certain medical problems. ? BMI can be measured using Ivorian measurements or metric measurements. ? BMI charts are used to identify whether you are underweight, normal weight, overweight, or obese. This information is not intended to replace advice given to you by your health care provider. Make sure you discuss any questions you have with your health care provider. Document Revised: 01/14/2020 Document Reviewed: 11/21/2019 [employer] Patient Education ? 2022 [email or web address]. Urology Urinary Frequency, Adult Urinary frequency means [...] instructions at home: (more content not included)... Normal [facility] Provider Letteron 07-23-2023 Provider Letter (Inserted Image. Minerva ble to display) July 23, 2023 RACQUEL YADAV [address] [place] [address] : 1995 To Whom It May Concern, Please excuse above patient from work. Date of Illness: 07/23/2023 May Return to Work On:07/24/2023 Sincerely, [facility] [address] [place] [address], [place] [address] Normal [facility] DOG HAIR CLIPPER - Office Visiton DOG HAIR CLIPPER - Office Visit Diagnoses/Problems Assessed History of PCOS (polycystic ovarian syndrome) (256.4) (E28.2) Fertility testing (V26.21) (Z31.41) Screening for STD (sexually transmitted disease) (V74.5) (Z11.3) PCOS (polycystic ovarian syndrome) (256.4) (E28.2) Oligomenorrhea (626.1) (N91.5) Orders Anti Mullerian Hormone; Status:Active; Requested for:14Wkd2783; 17-Hydroxyprogesterone, Serum; Status:Active; Requested for:39Iyp8751; Antithyroid Perox. Ab; Status:Active; Requested for:03Cms4469; Complete Blood Count; Status:Active; Requested for:96Gfj1243; DHEA Sulfate, Serum; Status:Active; Requested for:97Oyr8278; GC + Chlamydia By Amplified Detection; Status:Active; Requested for:23Prb5489; HCG, Beta Quantitative; Status:Active; Requested for:17Zhu2338; Hemoglobin A1C; Status:Active; Requested for:02Enr8548; Hepatitis B Surface Antigen; Status:Active; Requested for:14Bbg1704; Hepatitis C Antibody Test; Status:Active; Requested for:65Frq4813; HIV 1/2 ANTIGEN/ANTIBODY SCREEN WITH REFLEX TO CONFIRMATION; Status:Active; Requested for:25Zrc5492; IO Ultrasound, pelvic complete; Status:Hold For - Scheduling; Requested for:42Jjq6480; Radiologist to Determine Optimal Study : Y [...] Blood type [ ] Genetic Screen with Cipio - will consider [x ] Take vitamins, vitamin D [x ] Return to see me after workup complete to discuss management plan [x ] Education: New infertility packet to be mailed to patient [x ] Engaged MD albin Johnson MD [facility] [phone] [place] [phone] [place] Provider Impressions 24 year old with oligomenorrhea, [...] Blood type [ ] Genetic Screen with Cipio - will consider [x ] Take vitamins, vitamin D [x ] Return to see me after workup complete to discuss management plan [x ] Education: New infertility packet to be mailed to patient [x ] Engaged MD albin Johnson MD [facility] [phone] [place] [phone] [place] Appointment Duration:. 45 minutes; greater than half [...] trying for 4 years. History of Present Wjnqmfe8506/09/2020 11:15AM RACQUEL VAZQUEZ , 24 year is contacted for an (audio-visual, or audio only) Telehealth visit. Today's visit was provided through telemedicine conferencing: Using Kl[employer].in platform. Consent: The concept of telemedicine? 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 Prior established pregnancies: No Toxic habits: Occasional [...] Recorded: 09Jun2020 11:02AM Height5 ft 5 in Cyknda326 lb BMI Dxiekcvshd23.46 BSA Calculated1.82 Tobacco Useb) No Fall Screeninga) No falls within the last year [id number] Gravida0 Para0 Pain Scale0 Physical Exam This is a telehealth appointment Signatures Electronically signed by : Rayshawn Johnson MD; Jun 09 2020 11:52AM EST (Author) Normal [facility] LEFTon 12-01-2016 [facility] [place] [id number] ==Patient Name: RACQUEL VAZQUEZ : 1995Sex: FAge: Race: WhiteMRN: [id number]. Location: Patient Status: Date: 12/01/2016 4:25:00 PMCompleted Date: 12/01/2016 04:28 PMRequesting Provider: CARI GOOD Attending Provider: Report Copy To: Signs & Symptoms: S42.352D Displ commnt fx shaft of humer, l arm, 7thD T21Scetdwy: AthenaComments: , , Views (X-RAY, HUMERUS): AP, Lateral , Weight Bearing?: Y , With or Without Brace/Cast/Collar: Without , With Magnification Marker?: N , , , Ordering Provider - CARI GOOD MD , Rendering Provider - CARI GOOD MD , Exam: HUMERUS LEFTAccession #: [id number] =========HUMERUS LEFT 12/01/2016 4:28 PM EDT SIGNS [...] Electronically signed by:Subhash Campos M.D.. Transcribed by: [email or web address], User Resident: Electronically Signed by: SUBHASH CAMPOS @ 12/01/2016 04:35 PM Normal [facility] Comment on above: Order Comment: , , V iews (X-RAY, HUMERUS): AP, Lateral , Weight Bearing?: Y , With or Without Brace/Cast/Collar: Without , With Magnification Marker?: N , , , Ordering Provider - CARI GOOD MD , Rendering Provider - CARI GOOD MD , Vital Signs Date Time Vital Sign Value Performing Clinician Facility 07-23-2023 10:31-0400 Blood Pressure Location Cristi Saldana [facility] 07-23-2023 10:31-0400 Body temperature 98.24 [degF] Cristi Knox [facility] 07-23-2023 10:31-0400 Diastolic blood pressure 74 mm[Hg] Cristi Saldana [facility] 07-23-2023 10:31-0400 Heart rate 81 /min Cristi Saldana [facility] 07-23-2023 10:31-0400 SaO2% (BldA) [Mass fraction] 97 % Cristi Saldana [facility] 07-23-2023 10:31-0400 Systolic blood pressure 118 mm[Hg] Cristi Saldana [facility] 07-29-2021 18:50-0400 Body temperature 96.98 [degF] Mark Moffett [facility] 07-29-2021 18:50-0400 Diastolic blood pressure 58 mm[Hg] Mark Moffett [facility] 07-29-2021 18:50-0400 Heart rate 70 /min Mark Moffett [facility] 07-29-2021 18:50-0400 Respiratory rate 12 /min Mark Moffett [facility] 07-29-2021 18:50-0400 SaO2% (BldA) [Mass fraction] 99 % Makr Moffett [facility] 07-29-2021 18:50-0400 Systolic blood pressure 100 mm[Hg] Mark Moffett [facility] 07-29-2021 17:50-0400 Body temperature 97.52 [degF] Mark Moffett [facility] 07-29-2021 17:50-0400 Diastolic blood pressure 60 mm[Hg] Mark Moffett [facility] 07-29-2021 17:50-0400 Heart rate 70 /min Mark Moffett [facility] 07-29-2021 17:50-0400 Respiratory rate 12 /min Mark Moffett [facility] 07-29-2021 17:50-0400 SaO2% (BldA) [Mass fraction] 99 % Mark Moffett [facility] 07-29-2021 17:50-0400 Systolic blood pressure 110 mm[Hg] Mark Moffett [facility] 07-29-2021 17:49-0400 Body temperature 97.52 [degF] Mark Moffett [facility] 07-29-2021 17:49-0400 Diastolic blood pressure 79 mm[Hg] Mark Moffett [facility] 07-29-2021 17:49-0400 Heart rate 69 /min Mark Moffett [facility] 07-29-2021 17:49-0400 Respiratory rate 12 /min Mark Moffett [facility] 07-29-2021 17:49-0400 SaO2% (BldA) [Mass fraction] 99 % Mark Moffett [facility] 07-29-2021 17:49-0400 Systolic blood pressure 113 mm[Hg] Mark Moffett [facility] 07-29-2021 17:10-0400 Respiratory rate 24 /min Mark Moffett [facility] 07-29-2021 17:05-0400 Respiratory rate 24 /min Mark Moffett [facility] 07-29-2021 17:00-0400 Respiratory rate 27 /min Mark Moffett [facility] 07-29-2021 14:40-0400 Heart rate 72 /min Mark Moffett [facility] 07-29-2021 14:37-0400 Blood Pressure Location Mark Moffett [facility] 07-29-2021 14:37-0400 Mean blood pressure 93 mm[Hg] Mark Moffett [facility] 07-29-2021 14:37-0400 Blood Pressure Location Mark Moffett [facility] 07-29-2021 14:37-0400 Body temperature 98.24 [degF] Mark Moffett [facility] 07-29-2021 14:37-0400 BP/Pulse Patient Position Mark Moffett [facility] 07-29-2021 14:37-0400 Mean blood pressure 91 mm[Hg] Mark Moffett [facility] Encounters Encounter Date Encounter Type Care Provider Facility Start: 07-23-2023 End: 07-24-2023 ambulatory Cristi Saldana Facility:[facility] Start: 07-23-2023 End: 07-23-2023 Lab Drop off Cristi Saldana [facility] Start: 07-23-2023 End: 07-23-2023 Patient encounter procedure Cristi Saldana [facility] Start: 06-19-2023 End: 06-19-2023 Phys/qhp telephone evaluation 5-10 min Nakul Vaughan DO Work Phone: [facility] Comment on above: Female infertility Start: 09-21-2021 End: 09-21-2021 Lab Drop off Steph Brady [facility] Start: 07-29-2021 End: 07-29-2021 Admission to same day surgery center Mark Moffett [facility] Start: 12-01-2016 End: 12-02-2016 Ambulatory VITHAL SHENDGE Facility:[facility] Start: 11-01-2016 End: 11-02-2016 Ambulatory DEFAULT PHYSICIAN Facility:[facility] Procedures Date Procedure Procedure Detail Performing Clinician Start: 09-15-2016 left humerus ORIF Mark Moffett Appendectomy Mark Moffett Payers Date Payer Category Payer Unknown [id number] 1995 Unknown [id number] 1995 Unknown [id number] Unknown [id number] Unknown Social History Date Type Detail Facility Start: 12-14-2020 End: 07-23-2023 Tobacco smoking status Never smoked tobacco (finding) [facility] Sex Assigned At Female [facility] Start: 1995 Sex Assigned At Female [facility] Start: 01-09-2023 Gender identity Identifies as female gender (finding) [facility] Start: 01-09-2023 Sexual orientation Heterosexual (finding) [facility] Functional Status Date Assessment Result Facility 07-23-2023 Functional Status N/A [facility] Evaluation + Plan note 07-23-2023 Note Date & Type Note Facility 07-23-2023 Evaluation + Plan note Diagnostic Tests PendingUrine Culture 07/23/23 [facility] Hospital Discharge instructions 07-23-2023 Note Date & [...] to keep your urine pale yellow. ?Take vtyf-dic-nstklxj or prescription medicines. ?Eat foods that are high in fiber, such as beans, whole grains, and fresh fruits and vegetables. ?Limit foods that are high in fat and processed sugars, such as fried or sweet foods. General instructions Take yext-lue-unnkjso and prescription medicines only as told by [...] the muscles that help control urination. Take mrud-zxx-codennp and prescription medicines only as told by your health care provider. Contact a health care provider if your symptoms do not improve or get worse. This information is not intended to replace advice given to you by your health care provider. Make sure you discuss any questions you have with your health care provider. Document Revised: 11/26/2020 Document Reviewed: 11/26/2020 [employer] Patient Education 2022 [email or web address]. 07/23/2023 10:36:54 BMI for Adults BMI for [...] numbers. This can be done either in Ivorian (U.S.) or metric measurements. Note that charts and online BMI calculators are available to help you find your BMI quickly and easily without having to do these calculations yourself. To calculate your BMI in Ivorian (U.S.) measurements: 1.Measure your weight in pounds [...] Centers for Disease Control and Prevention: www.cdc.gov [place] Heart Association: www.heart.org National Heart, Lung, and Blood [place]: www.nhlbi.nih.gov Summary Body mass index (BMI) is a number that is calculated from a person's weight and height. BMI may help estimate how much of a person's weight is composed of fat. BMI can help identify those who may be at higher risk for certain medical problems. BMI can be measured using Ivorian measurements or metric measurements. BMI charts are used to identify whether you are underweight, normal weight, overweight, or obese. This information is not intended to replace advice given to you by your health care provider. Make sure you discuss any questions you have with your health care provider. Document Revised: 01/14/2020 Document Reviewed: 11/21/2019 [employer] Patient Education 2022 [email or web address]. Follow Up Care 07/23/2023 09:05:39 With:Teofilo BRANDT, TREVOR Jimenez Address: [address] [place] [id number] When: Unknown [facility] History of Present illness Narrative 06-19-2023 Nakul Vaughan DO - 06/19/2023 8:10 AM EST Note Date & Type Note Facility 06-19-2023 History of Presen t illness Narrative Reason for Appointment: Patient ID: Racquel Yadav is a 27 y.o. female who presents for TELEHEALTH FOLLOW UP and Infertility Patient presents today via telephone call for a telehealth appointment. Patients Phone #: [phone] (mobile) Current Medications: has a current medication [...] Nakul Vaughan DO documented in this encounter [facility] Hospital Discharge instructions 07-29-2021 Note Date & Type Note Facility 07-29-2021 Hospital Discharg e instructions Patient Education 07/29/2021 17:20:52 AGER OPERATOR - Post D&C, Hysteroscopy, LEEP or [...] Up Care 07/12/2021 14:08:06 With:Mark Moffett Address: [facility] MAIRA [address]U, [facility] [place] [address]- Business (1) When:2 weeks Comments:Call for any problems. [facility] Evaluation + Plan note Note Date & Type Note Facility Evaluation + Plan note No data available for this section [facility] Evaluation note Note Date & Type Note Facility Evaluation note Diagnosis Female infertility Female infertility of unspecified origin documented in this encounter [facility] Hospital Discharge instructions Note Date & Type Note Facility Hospital Discharge instructions No data available for this section [facility] Progress note Note Date & Type Note Facility Progress note No data available for this section [facility] Summary Purpose Family History No Family History Records FoundNo Family History Records Found No data available for this section No data available for this section No Family History Records Found Advance Directives No Advanced Directives Records FoundNo Advanced Directives Records FoundNo Advanced Directives Records Found Additional Source Comments INFORMATION SOURCE (unrecogn ized section and content) DATE CREATED AUTHOR 10/31/2017 [facility] DATE CREATED AUTHOR AUTHOR'S ORGANIZ ATION 06/10/2020 [facility] DATE CREATED AUTHOR AUTHOR'S ORGANIZ ATION 07/26/2023 [facility] Reason for Visit (unrecogniz ed section and content) Reason Comments TELEHEALTH FOLLOW UP Infertility Patient Care team informatio n (unrecognized section and content) Personnel Name: Dave Red MD Address: Address: [address] [place], [place] [address] Personnel Name: Dave Red MD Address: Address: [address] [place] [address] FOR RECORDS PERTAINING TO PATIENTS WHO ARE [...] BE BASED ON THE PRIMARY CLINICAL RECORDS. [employer] [facility]. provides no warranty or guarantee of the accuracy or completeness of information in this document.
--- NOTE | 2023-10-29 13:45 | FL_ITS ---
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 TECHNIQUE: Informed consent was obtained. A sterile vaginal speculum was introduced and, following cleansing of the cervix, a balloon-tipped catheter was inserted into the endometrial cavity. The procedure was then completed in the usual manner with water-soluble contrast. Standard level fluoroscopic mode of operation utilized. FINDINGS: FALLOPIAN TUBES: Patent fallopian tubes bilaterally. There is mild ectasia of the distal right and mid to distal left fallopian tubes ENDOMETRIAL CAVITY: No scarring, filling defects, or dilatation. OTHER: Negative. FL/FL Hysterosal cath placement IMPRESSION: Bilaterally patent fallopian tubes Mild fallopian tube ectasia, nonspecific Electronically authenticated by: RUSSELL ULRICH Date: 10/29/2023 15:46
--- NOTE | 2023-10-29 14:19 | SUR.PREOP ---
10/26/23 Pt instructed on procedure, date, time, and prep.
[2023-10-29 14:40] LABS: HCG Quantitative <1 mIU/mL
--- NOTE | 2023-10-29 15:23 | PC.NURSE ---
1500 Pt had some discomfort during the procedure with the balloon. Dr Lemus adjusted the balloon placement but pt still c/o discomfort. 1505 Balloon deflated and pt states much relief from discomfort. Pt assisted up to bathroom. 1515 Pt c/o mild period like cramping and a very small amount of fresh red blood but not enough to need a pad.
== END 2023-10-29 15:15 | disposition home or self-care (01) ==
LOC: LAB 13:18
PROVIDERS: Radiology Diagnostic Radiology; Visit Provider Obstetrics & Gynecology
DX: E28.2 Polycystic ovarian syndrome (principal); N97.0 Female infertility associated with anovulation; N83.9 Noninflammatory disorder of ovary, fallopian tube and broad ligament, unspecified
CPT/HCPCS: 36415; 58340; 74740; 84702; Q9966

== ENCOUNTER 2023-12-24 16:12 | Outpatient (OUT) | payer OTHER, SELFPAY ==
--- OUTSIDE RECORDS SUMMARY | 2023-12-24 16:28 | XMS_ITS | CCD ---
Author Organization [facility] CliniSyny Care Team Providers Care Photographer Assistant Name Role Phone PHYSICIAN, DEFAULT Unavailable Unavailable PHYSICIAN, DEFAULT Unavailable Unavailable SHENDGE, VITHAL Unavailable Unavailable SHENDGE, VITHAL Unavailable Unavailable SELF, REFERRED Unavailable Unavailable SELF, REFERRED Unavailable Unavailable Dave Red Primary Care Physician Unavailable Primary Care Provider Unavailcole e Cristi Saldana Attending Unavailable Cristi Saldana Admitting Unavailable Cristi Saldana Attending Unavailable Barby Pastrana Attending Unavailable Barby Pastrana Admitting Unavailable Barby Pastrana Attending Unavailable Allergies Allergy Classification Reported Allergen(s) Allergy Type Date of Onset Reaction(s) Facility (1 source) No Known Medication Allergies; Translations: [No Known Medication Allergies] Propensity to adverse reactions (disorder) [facility] Repository Medications Current Medications Medication Drug Class(es) Dates Sig (Normalized) Sig (Original) ibuprofen 600 mg oral tablet (2 sources) Nonsteroidal Anti-inflammator y Drug Start: 2 take 1 tablet by mouth every six hours ibuprofen 600 mg Tab 600 mg = 1 tab(s), Oral, q6hr, # 10 tab(s), Refills(s) 0, Pharmacy: [facility], 164, cm, 07/20/21 5:00:00 EDT, Height/Length Dosing, 79.7, kg, 07/20/21 5:00:00 EDT, Weight Dosing Start Date: 07/29/21 Status: Ordered letrozole 2.5 mg oral tablet (4 sources) Aromatase Inhibitor Start: 4 letrozole 2.5 mg Tab Refills(s) 0 Start Date: 07/23/23 Status: Ordered medroxyPROGESTERone acetate 10 mg oral tablet (10 sources) Progestin Start: 3 End: 4 medroxyPROGESTERone [...] Problem Date Documented Date Episodic/Chronic Anxiety disorders (6 sources) Generalized anxiety disorder 09-20-2018 Chronic Cancer of cervix (1 source) Carcinoma in situ of uterine cervix; Translations: [Carcinoma in situ of cervix, unspecified] Onset: 07-29-2021 Episodic Female infertility (2 sources) Female infertility; Translations: [Female infertility, unspecified] 06-14-2023 Chronic Genitourinary symptoms and ill-defined conditions (2 sources) Increased frequency of urination; Translations: [Frequency of micturition] Onset: 07-23-2023 Episodic Mood disorders (6 sources) Major depressive disorder 09-20-2018 Chronic Other connective tissue disease (1 source) Hand pain; Translations: [Pain in right hand] Onset: 11-15-2023 Episodic Other endocrine disorders (6 sources) Polycystic ovary Onset: 05-07-2016 06-11-2019 Chronic Other nutritional; endocrine; and metabolic disorders (7 sources) Obesity; Translations: [Obesity, unspecified] Onset: 11-15-2023 12-03-2019 Chronic Other nutritional; endocrine; and metabolic disorders (3 sources) Obese class I; Translations: [Body mass index (BMI) 32.0-32.9, adult] Onset: 07-23-2023 Chronic Residual codes; unclassified (1 source) Past history of procedure; Translations: [Other specified postprocedural states] Onset: 07-29-2021 Episodic Substance-related disorders (6 sources) Smoker 07-19-2021 Chronic Comment on above: [...] L ARM, 7THD] Onset: 12-01-2016 Episodic Unclassified (6 sources) None (qualifier value) 06-13-2019 Results Test Name Value Interpretation Reference Range Facility Ambulatory Visit Summaryon 0 11-15-2023 Ambulatory Visit Summary Ambulatory Visit Summary RACQUEL YADAV :1995 Visit Date:11/15/2023 Ambulatory Visit Instructions Your Diagnosis Hand pain, right BMI 32.0-32.9,adult Obese Your Care Team Attending Physician - Victoriano CAR, Jeane Primary Care Physician - Dave Red MD This Is Your Medications List Contact prescribing physician if questions or concerns letrozole (letrozole 2.5 mg Tab) medroxyPROGESTERone (medroxyPROGESTERone 10 mg Tab) Procedures Performed left humerus ORIF (09/15/2016), appendectomy. Discharge Vitals Temperature (Oral) 36.7 ?C Heart Rate (Peripheral) 82 Respiratory Rate 18 Blood Pressure 120/82 Height 162 cm Height 64 in Weight 85.8 kg Weight 188.76 lb BMI 32.69 What to do next You Need to Schedule the Following Appointments Follow Up with Teofilo BRANDT, Dave Rosen, [facility] When: Where: [place] [address]- Medications What When Instructions Unchanged letrozole (letrozole [...] choosing us for your care. Education Materials Healthy Eating Following a healthy eating pattern may help you to achieve and maintain a healthy body weight, reduce the risk of chronic disease, and live a long and productive life. It is important to follow a healthy eating pattern at an appropriate calorie level for your body. Your nutritional needs should be met primarily through food by choosing a variety of nutrient-rich foods. What are tips for following this plan? Reading food labels ? Read labels and choose the following: ? Reduced or low sodium. ? Juices with 100% fruit juice. ? Foods with low saturated fats and high polyunsaturated and monounsaturated fats. ? Foods with whole grains, such as whole wheat, cracked wheat, brown rice, and wild rice. ? Whole grains that are fortified with folic acid. This is recommended for women who are or who want to become . ? Read labels and avoid the following: ? Foods with a lot of added sugars. These include foods that contain brown sugar, corn sweetener, corn syrup, dextrose, fructose, glucose, high-fructose corn syrup, honey, invert sugar, lactose, malt syrup, maltose, molasses, raw sugar, sucrose, trehalose, or turbinado sugar. ? Do not eat more than the following amounts of added sugar per day: ? 6 teaspoons (25 g) for women. ? 9 teaspoons (38 g) for men. ? Foods that contain processed or refined starches and grains. ? Refined grain products, such as white flour, degermed cornmeal, white bread, and white rice. Shopping ? Choose nutrient-rich snacks, such as vegetables, whole fruits, and nuts. Avoid high-calorie and high-sugar snacks, such as potato chips, fruit snacks, and candy. ? Use oil-based dressings and spreads on foods instead of solid fats such as butter, stick margarine, or cream cheese. ? Limit pre-made sauces, mixes, and instant products such as flavored rice, instant noodles, and ready-made pasta. ? Try more plant-protein sources, such as tofu, tempeh, black beans, edamame, lentils, nuts, and seeds. ? Explore eating plans such as the Mediterranean diet or vegetarian diet. Cooking ? Use oil to saut? or stir-davis foods instead of solid fats such as butter, stick margarine, or lard. ? Try baking, boiling, grilling, or broiling instead of frying. ? Remove the fatty part of meats before cooking. ? Steam vegetables in water or broth. Meal planning ? At meals, imagine dividing your plate into fourths: ? One-half of your plate is fruits and vegetables. ? One-fourth of your plate is whole grains. ? One-fourth of your plate is protein, especially lean meats, poultry, eggs, tofu, beans, or nuts. ? Include low-fat dairy as part of your daily diet. Lifestyle ? Choose healthy options in all settings, including home, work, school, restaurants, or stores. ? Prepare your food safely: ? Wash your hands after handling raw meats. ? Keep food preparation surfaces clean by regularly washing with hot, soapy water. ? Keep raw meats separate from kymny-aj-gwm foods, such as fruits and vegetables. ? furnace repairer helper, meat, poultry, and eggs to the (more content not included)... Normal [facility] Family Medicine Office/Clini c Noteon 11-15-2023 Family Medicine Office/Clinic Note Family Medicine Office/Clinic Note Chief Complaint right hand pain HPI Staff 28 year old female presents with right hand pain, punched door onset last night History of Present Illness I have reviewed and verified the staff HPI to be accurate for this encounter. Portions of this record have been created with voice recognition software. Occasional wrong-word or ?bzmcm-t-juwp? substitutions may have occurred due to the inherent limitations of voice recognition software. 28-year-old female who presents with pain in right hand across fourth and fifth knuckle and to right pinky finger. She can make a fist with that hand but it is tender. She can flex and extend the fingers but it is tender. She states she had been drinking yesterday and does not remember exactly what happened but she woke up with a slightly swollen and red right posterior hand. She states her thinks she hit it on a wall or a door neighbor playing drinking games yesterday. She would like an x-ray to be sure it is not broken. Review of Systems PHQ Score Initial Depression Screen Score: 0 SCORE ROS negative unless otherwise stated in HPI. Physical Exam Vitals & Measurements T: 36.7 ?C(Oral) HR: 82(Peripheral) RR: 18 BP: 120/82 SpO2: 99% HT: 64 in HT: 162 cm WT: 85.8 kg WT: 188.76 lb BMI: 32.69 General: female appears stated age no acute distress Eyes: not assessed Ears: not assessed Nose: not addressed Mouth: not assessed Neck: not assessed Lungs: Normal respiratory effort and clear to auscultation Cardio: regular rate and rhythm, no murmur Abdomen: not assessed Musculoskeletal: Has full range of motion of all upper and lower extremities but tenderness with right hand movement. There is mild erythema, mild ecchymosis and edema of the right hand especially the dorsum of the right hand near the fourth and fifth knuckle. Extremity: All extremities are within normal limits except the right hand which is as above slightly tender with movement of the right hand including flexion extension of her fingers and making a fist. The right dorsum of her hand is slightly erythematous, slightly ecchymotic and mildly edematous. Neurologic: Grossly normal Skin: No rashes, ulcerations, or suspicious lesions Mental Status: Alert and oriented x3. Normal mood and affect Assessment/Plan We will obtain a 3 view x-ray of the right hand due to her symptoms. Patient is in agreement with the X-ray. X-ray of the right hand was negative for any fractures or dislocations. I encouraged her to use rest ice compression and elevation of the extremity. She may also use askb-lye-ygjvwak analgesics such as ibuprofen or Tylenol per package instructions for comfort. Declines need for work note today. 1. Hand pain, right (M79.641: Pain in right hand) Hand x-ray was negative. Patient encouraged to use rest, ice, compression and elevation for symptom management. As above can use acwt-frw-hcjqfgb analgesics such as Tylenol or ibuprofen per package instructions for any discomfort. Follow-up with primary care with any further concerns. Ordered: XR Hand 3+ Views Right 2. BMI 32.0-32.9,adult (Z68.32: Body mass index [...] management will be followed at subsequent visits. 3. Obese (E66.9: Obesity, unspecified) Encouraged healthy diet and exercise. Follow-up With When Contact Information Teofilo BRANDT, Dave Rosen, FAM [address] [place] [address]- Additional Instructions: Patient Education Healthy Eating Exercising to Lose Weight BMI for Adults How to Use Cold Therapy, Vhkm-tm-Ejjy Hand Pain Problem List/Past Medical History Ongoing Generalized anxiety disorder Major depressive disorder Never Smoker Obesity PCO (polycystic ovaries) Historical None Procedure/Surgical History left humerus ORIF (09/15/2016), appendectomy. Medications letrozole 2.5 mg Tab medroxyPROGESTERone 10 mg Tab Allergies No Known Allergies No Known Medication Allergies Social History Alcohol Wine, Liquor, 1-2 times per week, 4 drinks/episode average. 1.00 drinks/episode maximum. Started age 16 Years. Previous treatment: None. Alcohol use interferes with work or home: No. Drinks more than intended: No. Others hurt by drinking: No., 09/20/2018 Employment/School Employed, Work/School description: Works at [employer]. Previous employment/school: Student. Activity level: Occasional physical work. Highest education level: Some college. Operates hazardous equipment: No., 09/20/2018 Exercise Exercise duration: 4. Exercise frequency: 5-6 times/week. Self assessment: Fair condition. Exercise type: Walking., (more content not included)... Normal [facility] Comment on above: Result Comment: Elec tronically Signed By: Jeane Butterfield\.br\Date and Time Signed: 11/15/23 13:41 EDT XR Hand 3+ Views Righton XR Hand 3+ Views Right Exam Date/Time: 11/15/2023 13:24 EDT Reason for Exam: Pain, Traumatic Report IMPRESSION: NO DISPLACED FRACTURE OR SIGNIFICANT POSTTRAUMATIC COMPLICATION IDENTIFIED. EXAM: XR Hand 3+ Views Right DATE: 11/15/2023 1:18 PM CLINICAL HISTORY: Pain, Traumatic. COMPARISON: 07/15/2017. TECHNIQUE: PA, lateral, and oblique radiographs of the right hand were obtained. FINDINGS: There is no fracture, significant degenerative changes, dislocation, worrisome bone destruction, radiodense foreign bodies, or other posttraumatic complication identified. Ordering Provider: Barby Pastrana FINAL REPORT Dictated: 11/15/2023 1:30 pm Darin Arana MD Signed (Electronic Signature): 11/15/2023 1:30 pm Signed by: Darin Arana MD Transcribed by: JACQUES Technologist: PATY Technical Comments Radiation Dose: kristy Galindo in mGy = . DAP = . Normal [facility] C Urineon 07-25-2023 Bacteria identified Cx Nom [...] Locations R1: This test was performed at: [facility], [address] [place] [address], [facility] , , [facility] Comment on above: Performed By: #### [id number] #### [facility] [address] [place] [address] Ambulatory Visit Summaryon 0 07-23-2023 Ambulatory Visit [...] Following Appointments Follow Up with Teofilo BRANDT, TREVOR Jimenez When: Where: [address] [place] [address]- Medications What When Instructions Unchanged letrozole (letrozole [...] keep your urine pale yellow. ? Take ritn-gye-zgfhorx or prescription medicines. ? Eat foods that are high in fiber, such as beans, whole grains, and fresh fruits and vegetables. ? Limit foods that are high in fat and processed sugars, such as fried or sweet foods. General instructions ? Take ssus-bwq-ahsywhz and prescription medicines only as told by [...] muscles that help control urination. ? Take ecte-lju-nyjuzyu and prescripti (more content not included)... Normal [facility] Family Medicine Office/Clini c Noteon 07-23-2023 [...] denies Pt had progesterone at [facility], letrozole Pt is trying to get - has never ovulated- not sure if this is the pain she is feeling History of Present Illness I have reviewed and verified the staff HPI to be accurate for this encounter. Portions of this record have been created with voice recognition software. Occasional wrong-word or ?lzbnp-u-kyhz? substitutions may have occurred due to the inherent limitations of voice recognition software. 27-year-old female [facility] with chief complaint of possible [...] with this as she should contact her CONSTRUCTION PROJECT ADMINISTRATOR Dr. Vaughan for further evaluation in which [...] of Est. Patient Straight Fwd 10-19 Min [id number] 2. BMI 32.0-32.9,adult (Z68.32: Body mass index [BMI] 32.0-32.9, adult) The standard range for ages 18 and older is >=18.5 and < 25 kg/m2. Your BMI today was above this range, this falls in the overweight to obese category and there are medical benefits to weight loss. We can offer counselling, referral, a (more content not included)... Normal [facility] Comment on above: Result Comment: Elec [...] numbers. This can be done either in [place] (U.S.) or metric measurements. Note that charts and online BMI calculators are available to help you find your BMI quickly and easily without having to do these calculations yourself. To calculate your BMI in [place] (U.[place].) measurements: 1. Measure your weight in [...] for Disease Control and Prevention: www.cdc.gov ? [place] Heart Association: www.heart.org ? National Heart, Lung, and Blood [place]: www.nhlbi.nih.gov Summary ? Body mass index (BMI) is a number that is calculated from a person's weight and height. ? BMI may help estimate how much of a person's weight is composed of fat. BMI can help identify those who may be at higher risk for certain medical problems. ? BMI can be measured using [place] measurements or metric measurements. ? BMI charts are used to identify whether you are underweight, normal weight, overweight, or obese. This information is not intended to replace advice given to you by your health care provider. Make sure you discuss any questions you have with your health care provider. Document Revised: 01/14/2020 Document Reviewed: 11/21/2019 [employer] Patient Education ? 2022 [employer] Urology Urinary Frequency, Adult Urinary frequency [...] at home: (more content not included)... Normal [facility] Provider Letteron 07-23-2023 Provider Letter (Inserted Image. Minerva ble to display) July 23, 2023 RACQUEL YADAV [address] [place] [address] : 1995 To Whom It May Concern, Please excuse above patient from work. Date of Illness: 07/23/2023 May Return to Work On:07/24/2023 Sincerely, [facility] [address] [place] [address], [place] [address] Normal [facility] CONSTRUCTION PROJECT ADMINISTRATOR - Office Visiton CONSTRUCTION PROJECT ADMINISTRATOR - Office Visit Diagnoses/Problems Assessed History of PCOS (polycystic ovarian syndrome) (256.4) (E28.2) Fertility testing (V26.21) (Z31.41) Screening for STD (sexually transmitted disease) (V74.5) (Z11.3) PCOS (polycystic ovarian syndrome) (256.4) (E28.2) Oligomenorrhea (626.1) (N91.5) Orders Anti Mullerian Hormone; Status:Active; Requested for:98Srs0079; 17-Hydroxyprogesterone, Serum; Status:Active; Requested for:00Lfd2763; Antithyroid Perox. Ab; Status:Active; Requested for:31Dmv4140; Complete Blood Count; Status:Active; Requested for:42Zvt5837; DHEA Sulfate, Serum; Status:Active; Requested for:65Bgs5509; GC + Chlamydia By Amplified Detection; Status:Active; Requested for:85Gwq5002; HCG, Beta Quantitative; Status:Active; Requested for:21Kbg3400; Hemoglobin A1C; Status:Active; Requested for:63Tvp6600; Hepatitis B Surface Antigen; Status:Active; Requested for:09Jun2020; [...] Blood type [ ] Genetic Screen with [employer] - will consider [x ] Take vitamins, vitamin D [x ] Return to see me after workup complete to discuss management plan [x ] Education: New infertility packet to be mailed to patient [x ] Engaged MD albin Johnson MD [facility] [phone] [place] [phone] [place] Provider Impressions 24 year old with oligomenorrhea, [...] Blood type [ ] Genetic Screen with [employer] - will consider [x ] Take vitamins, vitamin D [x ] Return to see me after workup complete to discuss management plan [x ] Education: New infertility packet to be mailed to patient [x ] Engaged MD albin Johnson MD [facility] [phone] [place] [phone] [place] Appointment Duration:. 45 minutes; greater than half [...] trying for 4 years. History of Present Utntagd1506/09/2020 11:15AM RACQUEL VAZQUEZ , 24 year is contacted for an (audio-visual, or audio only) Telehealth visit. Today's visit was provided through telemedicine conferencing: Using [employer] platform. Consent: The concept of telemedicine? 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 Location: 84Patient Status: Date: 12/01/2016 4:25:00 PMCompleted Date: 12/01/2016 04:28 PMRequesting Provider: CARI GOOD Attending Provider: Report Copy To: Signs & Symptoms: S42.352D Displ commnt fx shaft of humer, l arm, 7thD J34Fuyirri: AthenaComments: , , Views (X-RAY, HUMERUS): AP, Lateral , Weight Bearing?: Y , With or Without Brace/Cast/Collar: Without , With Magnification Marker?: N , , , Ordering Provider - CARI GOOD MD , Rendering Provider - CARI GOOD MD , Exam: HUMERUS LEFTAccession #: [id number] =========HUMERUS LEFT 12/01/2016 4:28 PM EDT SIGNS [...] Electronically signed by:Subhash Campos M.D.. Transcribed by: [email or web address], User Resident: Electronically Signed by: SUBHASH CAMPOS @ 12/01/2016 04:35 PM Normal [facility] Comment on above: Order Comment: , , V iews (X-RAY, HUMERUS): AP, Lateral , Weight Bearing?: Y , With or Without Brace/Cast/Collar: Without , With Magnification Marker?: N , , , Ordering Provider - CARI GOOD MD , Rendering Provider Gloria GOOD MD , Vital Signs Date Time Vital Sign Value Performing Clinician Facility 11-15-2023 12:56-0400 Blood Pressure Location Barby Pastrana [facility] 11-15-2023 12:56-0400 Body temperature 98.06 [degF] Barby Pastrana [facility] 11-15-2023 12:56-0400 Diastolic blood pressure 82 mm[Hg] Barby Peraltaer [facility] 11-15-2023 12:56-0400 Heart rate 82 /min Barby Peraltaer [facility] 11-15-2023 12:56-0400 Respiratory rate 18 /min Barby Pastrana [facility] 11-15-2023 12:56-0400 SaO2% (BldA) [Mass fraction] 99 % Barby Pastrana [facility] 11-15-2023 12:56-0400 Systolic blood pressure 120 mm[Hg] Barby Peraltaer [facility] 07-23-2023 10:31-0400 Blood Pressure Location Cristi Les [facility] 07-23-2023 10:31-0400 Body temperature 98.24 [degF] Cristi Les [facility] 07-23-2023 10:31-0400 Diastolic blood pressure 74 mm[Hg] Cristi Saldana [facility] 07-23-2023 10:31-0400 Heart rate 81 /min Cristi Saldana [facility] 07-23-2023 10:31-0400 SaO2% (BldA) [Mass fraction] 97 % Cristi Saldana [facility] 07-23-2023 10:31-0400 Systolic blood pressure 118 mm[Hg] Cristi Saldana [facility] 07-29-2021 18:50-0400 Body temperature 96.98 [degF] Mark Moffett [facility] 07-29-2021 18:50-0400 Diastolic blood pressure 58 mm[Hg] Mark Moffett [facility] 07-29-2021 18:50-0400 Heart rate 70 /min Mark Moffett [facility] 07-29-2021 18:50-0400 Respiratory rate 12 /min Mark Moffett [facility] 07-29-2021 18:50-0400 SaO2% (BldA) [Mass fraction] 99 % Mark Moffett [facility] 07-29-2021 18:50-0400 Systolic blood pressure 100 mm[Hg] Mark Moffett [facility] 07-29-2021 17:50-0400 Body temperature 97.52 [degF] Mark Moffett [facility] 07-29-2021 17:50-0400 Diastolic blood pressure 60 mm[Hg] Mark Moffett [facility] 07-29-2021 17:50-0400 Heart rate 70 /min Mark Moffett [facility] 07-29-2021 17:50-0400 Respiratory rate 12 /min Mark Moffett [facility] 07-29-2021 17:50-0400 SaO2% (BldA) [Mass fraction] 99 % Mark Moffett [facility] 07-29-2021 17:50-0400 Systolic blood pressure 110 mm[Hg] Mark Moffett [facility] 07-29-2021 17:49-0400 Body temperature 97.52 [degF] Mark Moffett [facility] 07-29-2021 17:49-0400 Diastolic blood pressure 79 mm[Hg] Mark Moffett [facility] 07-29-2021 17:49-0400 Heart rate 69 /min Mark Moffett [facility] 07-29-2021 17:49-0400 Respiratory rate 12 /min Mark Moffett [facility] 07-29-2021 17:49-0400 SaO2% (BldA) [Mass fraction] 99 % Mark Moffett [facility] 07-29-2021 17:49-0400 Systolic blood pressure 113 mm[Hg] Mark Moffett [facility] 07-29-2021 17:10-0400 Respiratory rate 24 /min Mark Moffett [facility] 07-29-2021 17:05-0400 Respiratory rate 24 /min Mark Moffett [facility] 07-29-2021 17:00-0400 Respiratory rate 27 /min Mark Moffett [facility] 07-29-2021 14:40-0400 Heart rate 72 /min Mark Moffett [facility] 07-29-2021 14:37-0400 Blood Pressure Location Mark Moffett [facility] 07-29-2021 14:37-0400 Mean blood pressure 93 mm[Hg] Mark Moffett [facility] 07-29-2021 14:37-0400 Blood Pressure Location Mark Moffett [facility] 07-29-2021 14:37-0400 Body temperature 98.24 [degF] Mark Moffett [facility] 07-29-2021 14:37-0400 BP/Pulse Patient Position Mark Moffett [facility] 07-29-2021 14:37-0400 Mean blood pressure 91 mm[Hg] Mark Zuhair [facility] Encounters Encounter Date Encounter Type Care Provider Facility Start: 11-15-2023 End: 11-15-2023 ambulatory Barby Pastrana Facility:[facility] Start: 11-15-2023 End: 11-15-2023 Patient encounter procedure Barby Pastrana [facility] Start: 07-23-2023 End: 07-23-2023 Lab Drop off Cristi Saldana [facility] Start: 07-23-2023 End: 07-23-2023 ambulatory Cristi Saldana Facility:[facility] Start: 07-23-2023 End: 07-23-2023 Patient encounter procedure Cristi Saldana [facility] Start: 06-19-2023 End: 06-19-2023 Phys/qhp telephone evaluation 5-10 min Nakul Vaughan DO Work Phone: [facility] Comment on above: Female infertility Start: 09-21-2021 End: 09-21-2021 Lab Drop off tSeph Brady [facility] Start: 07-29-2021 End: 07-29-2021 Admission to same day surgery center Mark Rosen Zuhair [facility] Start: 12-01-2016 End: 12-02-2016 Ambulatory VITHAL SHENDGE Facility:[facility] Start: 11-01-2016 End: 11-02-2016 Ambulatory DEFAULT PHYSICIAN Facility:[facility] Procedures Date Procedure Procedure Detail Performing Clinician Start: 09-15-2016 left humerus ORIF Mark Zuhair Appendectomy Mark Moffett Payers Date Payer Category Payer Unknown [id number] 1995 Unknown [id number] 1995 Unknown [id number] 1994 Unknown [id number] 1994 Unknown [id number] Unknown [id number] Unknown Social History Date Type Detail Facility Start: 12-14-2020 End: 11-15-2023 Tobacco smoking status Never smoked tobacco (finding) [facility] Comment on above: patient denies Tobacco smoking status Never [facility] Comment on above: patient denies Sex Assigned At Female [facility] Tobacco smoking stat us NJIS Tobacco smoking consumption unknown [facility] Start: 1995 Sex Assigned At Female [facility] Start: 01-09-2023 Gender identity Identifies as female gender (finding) [facility] Start: 01-09-2023 Sexual orientation Heterosexual (fin ding) [facility] Healthcare Functional Status Date Assessment Result Facility 11-15-2023 Functional Status N/A [facility] 07-23-2023 Functional Status N/A [facility] Hospital Discharge instructions 11-15-2023 Note Date & Type Note Facility 11-15-2023 Hospital Discharge instructions Patient Education 11/15/2023 13:24:19 Healthy Eating Healthy Eating Following a healthy eating pattern may help you to achieve and maintain a healthy body weight, reduce the risk of chronic disease, and live a long and productive life. It is important to follow a healthy eating pattern at an appropriate calorie level for your body. Your nutritional needs should be met primarily through food by choosing a variety of nutrient-rich foods. What are tips for following this plan? Reading food labels Read labels and choose the following: ?Reduced or low sodium. ?Juices with 100% fruit juice. ?Foods with low saturated fats and high polyunsaturated and monounsaturated fats. ?Foods with whole grains, such as whole wheat, cracked wheat, brown rice, and wild rice. ?Whole grains that are fortified with folic acid. This is recommended for women who are or who want to become . Read labels and avoid the following: ?Foods with a lot of added sugars. These include foods that contain brown sugar, corn sweetener, corn syrup, dextrose, fructose, glucose, high-fructose corn syrup, honey, invert sugar, lactose, malt syrup, maltose, molasses, raw sugar, sucrose, trehalose, or turbinado sugar. ?Do not eat more than the following amounts of added sugar per day: 6 teaspoons (25 g) for women. 9 teaspoons (38 g) for men. ?Foods that contain processed or refined starches and grains. ?Refined grain products, such as white flour, degermed cornmeal, white bread, and white rice. Shopping Choose nutrient-rich snacks, such as vegetables, whole fruits, and nuts. Avoid high-calorie and high-sugar snacks, such as potato chips, fruit snacks, and candy. Use oil-based dressings and spreads on foods instead of solid fats such as butter, stick margarine, or cream cheese. Limit pre-made sauces, mixes, and instant products such as flavored rice, instant noodles, and ready-made pasta. Try more plant-protein sources, such as tofu, tempeh, black beans, edamame, lentils, nuts, and seeds. Explore eating plans such as the Mediterranean diet or vegetarian diet. Cooking Use oil to saut or stir-davis foods instead of solid fats such as butter, stick margarine, or lard. Try baking, boiling, grilling, or broiling instead of frying. Remove the fatty part of meats before cooking. Steam vegetables in water or broth. Meal planning At meals, imagine dividing your plate into fourths: ?One-half of your plate is fruits and vegetables. ?One-fourth of your plate is whole grains. ?One-fourth of your plate is protein, especially lean meats, poultry, eggs, tofu, beans, or nuts. Include low-fat dairy as part of your daily diet. Lifestyle Choose healthy options in all settings, including home, work, school, restaurants, or stores. Prepare your food safely: ?Wash your hands after handling raw meats. ?Keep food preparation surfaces clean by regularly washing with hot, soapy water. ?Keep raw meats separate from ygybz-cj-dnm foods, such as fruits and vegetables. ?furnace repairer helper, meat, poultry, and eggs to the recommended internal temperature. ?Store foods at safe temperatures. In general: ?Keep cold foods at 40 F (4.4 C) or below. ?Keep hot foods at 140 F (60 C) or above. ?Keep your freezer at 0 F (-17.8 C) or below. ?Foods are no longer safe to eat when they have been between the temperatures of 40 140 F (4.4 60 C) for more than 2 hours. What foods should I eat? Fruits Aim to eat 2 cup-equivalents of fresh, canned (in natural juice), or frozen fruits each day. Examples of 1 cup-equivalent of fruit include 1 small apple, 8 large strawberries, 1 cup canned fruit, cup dried fruit, or 1 cup 100% juice. Vegetables Aim to eat 2 3 cup-equivalents of fresh and frozen vegetables each day, including different varieties and colors. Examples of 1 cup-equivalent of vegetables include 2 medium carrots, 2 cups raw, leafy greens, 1 cup chopped vegetable (raw or cooked), or 1 medium baked potato. Grains Aim to eat 6 ounce-equivalents of whole grains each day. Examples of 1 ounce-equivalent of grains include 1 slice of bread, 1 cup qgfey-hh-aee cereal, 3 cups popcorn, or cup cooked rice, pasta, or cereal. Meats and other proteins Aim to eat 5 6 ounce-equivalents of protein each day. Examples of 1 ounce-equivalent of protein include 1 egg, 1/2 cup nuts or seeds, or 1 tablespoon (16 g) peanut butter. A cut of meat or fish that is the size of a deck of cards is about 3 4 ounce-equivalents. Of the protein you eat each week, try to have at least 8 ounces come from seafood. This includes salmon, trout, curiel, and anchovies. Dairy Aim to eat 3 cup-equivalents of fat-free or low-fat dairy each day. Examples of 1 cup-equivalent of dairy include 1 cup (240 mL) milk, 8 ounces (250 g) yogurt, 1 ounces (44 g) natural cheese, or 1 cup (240 mL) fortified soy milk. Fats and oils Aim for about 5 teaspoons (21 g) per day. Choose monounsaturated fats, such as canola and olive oils, avocados, peanut butter, and most nuts, or polyunsaturated fats, such as sunflower, corn, and soybean oils, walnuts, pine nuts, sesame seeds, sunflower seeds, and flaxseed. Beverages Aim for six 8-oz glasses of water per day. Limit coffee to three to five 8-oz cups per day. Limit caffeinated beverages that have added calories, such as soda and energy drinks. Limit alcohol intake to no more than 1 drink a day for non women and 2 drinks a day for men. One drink equals 12 oz of beer (355 mL), 5 oz of wine (148 mL), or 1 oz of hard liquor (44 mL). Seasoning and other foods Avoid adding excess amounts of salt to your foods. Try flavoring foods with herbs and spices instead of salt. Avoid adding sugar to foods. Try using oil-based dressings, sauces, and spreads instead of solid fats. This information is based on general [place] nutrition guidelines. For more information, visit choosemyplate.gov. Exact amounts may vary based on your nutrition needs. Summary A healthy eating plan may help you to maintain a healthy weight, reduce the risk of chronic diseases, and stay active throughout your life. Plan your meals. Make sure you eat the right portions of a variety of nutrient-rich foods. Try baking, boiling, grilling, or broiling instead of frying. Choose healthy options in all settings, including home, work, school, restaurants, or stores. This information is not intended to replace advice given to you by your health care provider. Make sure you discuss any questions you have with your health care provider. Document Revised: 12/20/2021 Document Reviewed: 12/20/2021 [employer] Patient Education 2022 [employer]. 11/15/2023 13:24:01 Exercising to Lose Weight Exercising to Lose Weight Getting regular exercise is important for everyone. It is especially important if you are overweight. Being overweight increases your risk of heart disease, stroke, diabetes, high blood pressure, and several types of cancer. Exercising, and reducing the calories you consume, can help you lose weight and improve fitness and health. Exercise can be moderate or vigorous intensity. To lose weight, most people need to do a certain amount of moderate or vigorous-intensity exercise each week. How can exercise affect me? You lose weight when you exercise enough to burn more calories than you eat. Exercise also reduces body fat and builds muscle. The more muscle you have, the more calories you burn. Exercise also: Improves mood. Reduces stress and tension. Improves your overall fitness, flexibility, and endurance. Increases bone strength. Moderate-intensity exercise Moderate-intensity exercise is any activity that gets you moving enough to burn at least three times more energy (calories) than if you were sitting. Examples of moderate exercise include: Walking a mile in 15 minutes. Doing light yard work. Biking at an easy pace. Most people should get at least 150 minutes of moderate-intensity exercise a week to maintain their body weight. Vigorous-intensity exercise Vigorous-intensity exercise is any activity that gets you moving enough to burn at least six times more calories than if you were sitting. When you exercise at this intensity, you should be working hard enough that you are not able to carry on a conversation. Examples of vigorous exercise include: Running. Playing a team sport, such as football, basketball, and soccer. Jumping rope. Most people should get at least 75 minutes a week of vigorous exercise to maintain their body weight. What actions can I take to lose weight? The amount of exercise you need to lose weight depends on: Your age. The type of exercise. Any health conditions you have. Your overall physical ability. Talk to your health care provider about how much exercise you need and what types of activities are safe for you. Nutrition Make changes to your diet as told by your health care provider or diet and marketing automation specialist (dietitian). This may include: ?Eating fewer calories. ?Eating more protein. ?Eating less unhealthy fats. ?Eating a diet that includes fresh fruits and vegetables, whole grains, low-fat dairy products, and lean protein. ?Avoiding foods with added fat, salt, and sugar. Drink plenty of water while you exercise to prevent dehydration or heat stroke. Activity Choose an activity that you enjoy and set realistic goals. Your health care provider can help you make an exercise plan that works for you. Exercise at a moderate or vigorous intensity most days of the week. ?The intensity of exercise may vary from person to person. You can tell how intense a workout is for you by paying attention to your breathing and heartbeat. Most people will notice their breathing and heartbeat get faster with more intense exercise. Do resistance training twice each week, such as: ?Push-ups. ?Sit-ups. ?Lifting weights. ?Using resistance bands. Getting short amounts of exercise can be just as helpful as long, structured periods of exercise. If you have trouble finding time to exercise, try doing these things as part of your daily routine: ?Get up, stretch, and walk around every 30 minutes throughout the day. ?Go for a walk during your lunch break. ?Park your car farther away from your destination. ?If you take public transportation, get off one stop early and walk the rest of the way. ?Make phone calls while standing up and walking around. ?Take the stairs instead of elevators or escalators. Wear comfortable clothes and shoes with good support. Do not exercise so much that you hurt yourself, feel dizzy, or get very short of breath. Where to find more information U.S. Department of Health and Human Services: www.hhs.gov Centers for Disease Control and Prevention: www.cdc.gov Contact a health care provider: Before starting a new exercise program. If you have questions or concerns about your weight. If you have a medical problem that keeps you from exercising. Get help right away if: You have any of the following while exercising: ?Injury. ?Dizziness. ?Difficulty breathing or shortness of breath that does not go away when you stop exercising. ?Chest pain. ?Rapid heartbeat. These symptoms may represent a serious problem that is an emergency. Do not wait to see if the symptoms will go away. Get medical help right away. Call your local emergency services (911 in the [place] Do not drive yourself to the hospital. Summary Getting regular exercise is especially important if you are overweight. Being overweight increases your risk of heart disease, stroke, diabetes, high blood pressure, and several types of cancer. Losing weight happens when you burn more calories than you eat. Reducing the amount of calories you eat, and getting regular moderate or vigorous exercise each week, helps you lose weight. This information is not intended to replace advice given to you by your health care provider. Make sure you discuss any questions you have with your health care provider. Document Revised: 06/19/2021 Document Reviewed: 06/19/2021 [employer] Patient Education 2022 [employer]. 11/15/2023 13:23:59 BMI for Adults BMI for Adults What [...] numbers. This can be done either in [place] ([place] or metric measurements. Note that charts and online BMI calculators are available to help you find your BMI quickly and easily without having to do these calculations yourself. To calculate your BMI in [place] ([place] measurements: 1.Measure your weight in pounds [...] Centers for Disease Control and Prevention: www.cdc.gov [place] [employer]: www.heart.org National Heart, Lung, and Blood [place]: www.nhlbi.nih.gov Summary Body mass index (BMI) is a number that is calculated from a person's weight and height. BMI may help estimate how much of a person's weight is composed of fat. BMI can help identify those who may be at higher risk for certain medical problems. BMI can be measured using [place] measurements or metric measurements. BMI charts are used to identify whether you are underweight, normal weight, overweight, or obese. This information is not intended to replace advice given to you by your health care provider. Make sure you discuss any questions you have with your health care provider. Document Revised: 01/14/2020 Document Reviewed: 11/21/2019 [employer] Patient Education 2022 [employer]. 11/15/2023 13:23:56 How to Use Cold Therapy, Xnum-lt-Ksho How to Use Cold Therapy Cold therapy, or cryotherapy, is a treatment that uses cold temperatures to treat an injury or medical condition. It includes using cold packs or ice packs to reduce pain and swelling. Only use cold therapy if your doctor says it is okay. What are the risks? Generally, cold therapy is a safe treatment. However, it is not safe for: People who are not able to say they are in pain. These include small children and people who have memory problems. People who have certain conditions, such as: ?A problem in the vessels that slows blood flow to the fingers and toes (Raynaud's syndrome). ?Feeling very cold easily (cold hypersensitivity). ?Lack of feeling in the area being iced. Cold therapy may not be safe for people who have other conditions. Do not use it without talking to your doctor if you have: A heart condition. High blood pressure. Open or healing wounds. An infection. Pain and swelling in your joints (rheumatoid arthritis). Poor blood flow in the body. Diabetes. Certain skin conditions. How do I make a cold pack? When using a cold pack at home to reduce pain and swelling, you can use: A silica gel cold pack that has been left in the freezer. You can buy this online or in stores. A sealable plastic bag that has been filled with crushed ice. A washcloth or paper towels soaked in cold water or ice water. A plastic bag of frozen vegetables. Throw them away when you are finished using them as a cold pack. Supplies needed: A cold pack. A towel. This can be dry or damp, based on what you like. How to use cold therapy 1.Have your cold pack ready. 2.Place a towel between the cold pack and your skin. You may also wrap the cold pack in a towel. 3.Put the cold pack on the affected area. Keep it on for no more than 20 minutes at a time. 4.Check your skin after 5 minutes to make sure that there is no damage to the area. Check for: White spots on your skin. Your skin may look blotchy or mottled. Skin that looks blue or pale. Skin that feels waxy or hard. 5.Repeat these steps as many times each day as told by your doctor. Take off the ice if your skin turns bright red. This is very important. If you cannot feel pain, heat, or cold, you have a greater risk of damage to the area. Always use a towel to avoid direct contact with your skin. Contact a doctor if: You start to have white spots on your skin. This may give your skin a blotchy or mottled look. Your skin turns blue or pale. Your skin becomes waxy or hard. Your swelling gets worse. Summary Cold therapy, or cryotherapy, is used to treat an injury or other conditions. It includes using cold packs or ice packs to reduce pain and swelling. Cold therapy is not safe for people who are not able to say they are in pain. When using cold packs or ice packs, always place a towel between the cold source and your skin. Check your skin after 5 minutes of icing it. This is to make sure that there is no skin damage. Contact your doctor if you notice changes in your skin or your swelling gets worse. This information is not intended to replace advice given to you by your health care provider. Make sure you discuss any questions you have with your health care provider. Document Revised: 03/09/2021 Document Reviewed: 03/09/2021 [employer] Patient Education 2022 [employer] 11/15/2023 13:23:47 Hand Pain Hand Pain Many things can cause hand pain. Some common causes are: An injury. Repeating the same movement with your hand over and over (overuse). Osteoporosis. Arthritis. Lumps in the tendons or joints of the hand and wrist (ganglion cysts). Nerve compression syndromes (carpal tunnel syndrome). Inflammation of the tendons (tendinitis). Infection. Follow these instructions at home: Pay attention to any changes in your symptoms. Take these actions to help with your discomfort: Managing pain, stiffness, and swelling Take vtlw-xcr-krsqfaz and prescription medicines only as told by your health care provider. Wear a hand splint or support as told by your health care provider. If directed, put ice on the affected area: ?Put ice in a plastic bag. ?Place a towel between your skin and the bag. ?Leave the ice on for 20 minutes, 2 3 times a day. Activity Take breaks from repetitive activity often. Avoid activities that make your pain worse. Minimize stress on your hands and wrists as much as possible. Do stretches or exercises as told by your health care provider. Do not do activities that make your pain worse. Contact a health care provider if: Your pain does not get better after a few days of self-care. Your pain gets worse. Your pain affects your ability to do your daily activities. Get help right away if: Your hand becomes warm, red, or swollen. Your hand is numb or tingling. Your hand is extremely swollen or deformed. Your hand or fingers turn white or blue. You cannot move your hand, wrist, or fingers. Summary Many things can cause hand pain. Contact your health care provider if your pain does not get better after a few days of self care. Minimize stress on your hands and wrists as much as possible. Do not do activities that make your pain worse. This information is not intended to replace advice given to you by your health care provider. Make sure you discuss any questions you have with your health care provider. Document Revised: 08/10/2022 Document Reviewed: 08/11/2021 [employer] Patient Education 2022 [employer]. Follow Up Care 11/15/2023 10:03:53 With:Teofilo BRANDT, Dave Rosen, TREVOR Address: [address] [place] [id number] When: Unknown [facility] Clinical Note 11-15-2023 Note Date & Type Note Facility 11-15-2023 Note Patient Education Nutrition Healthy Eating Following a healthy eating pattern may help you to achieve and maintain a healthy body weight, reduce the risk of chronic disease, and live a long and productive life. It is important to follow a healthy eating pattern at an appropriate calorie level for your body. Your nutritional needs should be met primarily through food by choosing a variety of nutrient-rich foods. What are tips for following this plan? Reading food labels ? Read labels and choose the following: ? Reduced or low sodium. ? Juices with 100% fruit juice. ? Foods with low saturated fats and high polyunsaturated and monounsaturated fats. ? Foods with whole grains, such as whole wheat, cracked wheat, brown rice, and wild rice. ? Whole grains that are fortified with folic acid. This is recommended for women who are or who want to become . ? Read labels and avoid the following: ? Foods with a lot of added sugars. These include foods that contain brown sugar, corn sweetener, corn syrup, dextrose, fructose, glucose, high-fructose corn syrup, honey, invert sugar, lactose, malt syrup, maltose, molasses, raw sugar, sucrose, trehalose, or turbinado sugar. ? Do not eat more than the following amounts of added sugar per day: ? 6 teaspoons (25 g) for women. ? 9 teaspoons (38 g) for men. ? Foods that contain processed or refined starches and grains. ? Refined grain products, such as white flour, degermed cornmeal, white bread, and white rice. Shopping ? Choose nutrient-rich snacks, such as vegetables, whole fruits, and nuts. Avoid high-calorie and high-sugar snacks, such as potato chips, fruit snacks, and candy. ? Use oil-based dressings and spreads on foods instead of solid fats such as butter, stick margarine, or cream cheese. ? Limit pre-made sauces, mixes, and instant products such as flavored rice, instant noodles, and ready-made pasta. ? Try more plant-protein sources, such as tofu, tempeh, black beans, edamame, lentils, nuts, and seeds. ? Explore eating plans such as the Mediterranean diet or vegetarian diet. Cooking ? Use oil to saut? or stir-davis foods instead of solid fats such as butter, stick margarine, or lard. ? Try baking, boiling, grilling, or broiling instead of frying. ? Remove the fatty part of meats before cooking. ? Steam vegetables in water or broth. Meal planning ? At meals, imagine dividing your plate into fourths: ? One-half of your plate is fruits and vegetables. ? One-fourth of your plate is whole grains. ? One-fourth of your plate is protein, especially lean meats, poultry, eggs, tofu, beans, or nuts. ? Include low-fat dairy as part of your daily diet. Lifestyle ? Choose healthy options in all settings, including home, work, school, restaurants, or stores. ? Prepare your food safely: ? Wash your hands after handling raw meats. ? Keep food preparation surfaces clean by regularly washing with hot, soapy water. ? Keep raw meats separate from njemq-ye-cym foods, such as fruits and vegetables. ? furnace repairer helper, meat, poultry, and eggs to the recommended internal temperature. ? Store foods at safe temperatures. In general: ? Keep cold foods at 40?F (4.4?C) or below. ? Keep hot foods at 140?F (60?C) or above. ? Keep your freezer at 0?F (-17.8?C) or below. ? Foods are no longer safe to eat when they have been between the temperatures of 40??140?F (4.4?60?C) for more than 2 hours. What foods should I eat? Fruits Aim to eat 2 cup-equivalents of fresh, canned (in natural juice), or frozen fruits each day. Examples of 1 cup-equivalent of fruit include 1 small apple, 8 large strawberries, 1 cup canned fruit, ? cup dried fruit, or 1 cup 100% juice. Vegetables Aim to eat 2??3 cup-equivalents of fresh and frozen vegetables each day, including different varieties and colors. Examples of 1 cup-equivalent of vegetables include 2 medium carrots, 2 cups raw, leafy greens, 1 cup chopped vegetable (raw or cooked), or 1 medium baked potato. Grains Aim to eat 6 ounce-equivalents of whole grains each day. Examples of 1 ounce-equivalent of grains include 1 slice of bread, 1 cup qucwy-kt-kjc cereal, 3 cups popcorn, or ? cup cooked rice, pasta, or cereal. Meats and other proteins Aim to eat 5?6 ounce-equivalents of protein each day. Examples of 1 ounce-equivalent of protein include 1 egg, 1/2 cup nuts or seeds, or 1 tablespoon (16 g) peanut butter. A cut of meat or fish that is the size of a deck of cards is about 3?4 ounce-equivalents. ? Of the protein you eat each week, try to have at least 8 ounces come from seafood. This includes salmon, trout, curiel, and anchovies. Dairy Aim to eat 3 cup-equivalents of fat-free or low-fat dairy each day. Examples of 1 cup-equivalent of dairy include 1 cup (240 mL) milk, 8 ounces (250 g) yogurt, 1? ounces (44 g) natural cheese, or 1 cup (240 mL) fortified soy milk. Fats and oils ? Aim for about 5 teas (more content not included)... [facility] Evaluation + Plan note 07-23-2023 Note Date & Type Note Facility 07-23-2023 Evaluation + Plan note Diagnostic Tests PendingUrine Culture 07/23/23 [facility] Hospital Discharge instructions 07-23-2023 Note Date & [...] to keep your urine pale yellow. ?Take xhol-ecs-zcmykxg or prescription medicines. ?Eat foods that are high in fiber, such as beans, whole grains, and fresh fruits and vegetables. ?Limit foods that are high in fat and processed sugars, such as fried or sweet foods. General instructions Take vmzn-avt-iqhyprn and prescription medicines only as told by [...] the muscles that help control urination. Take gbye-quf-fiqnajq and prescription medicines only as told by your health care provider. Contact a health care provider if your symptoms do not improve or get worse. This information is not intended to replace advice given to you by your health care provider. Make sure you discuss any questions you have with your health care provider. Document Revised: 11/26/2020 Document Reviewed: 11/26/2020 [employer] Patient Education 2022 [employer]. 07/23/2023 10:36:54 BMI for Adults BMI for [...] numbers. This can be done either in [place] or metric measurements. Note that charts and online BMI calculators are available to help you find your BMI quickly and easily without having to do these calculations yourself. To calculate your BMI in [place] ([place] measurements: 1.Measure your weight in pounds [...] Centers for Disease Control and Prevention: www.cdc.gov [place] [employer]: www.heart.org National Heart, Lung, and Blood [place]: www.nhlbi.nih.gov Summary Body mass index (BMI) is a number that is calculated from a person's weight and height. BMI may help estimate how much of a person's weight is composed of fat. BMI can help identify those who may be at higher risk for certain medical problems. BMI can be measured using [place] measurements or metric measurements. BMI charts are used to identify whether you are underweight, normal weight, overweight, or obese. This information is not intended to replace advice given to you by your health care provider. Make sure you discuss any questions you have with your health care provider. Document Revised: 01/14/2020 Document Reviewed: 11/21/2019 [employer] Patient Education 2022 [employer]. Follow Up Care 07/23/2023 09:05:39 With:Teofilo BRANDT, TREVOR Jimenez Address: [address] [place] [id number]- When: Unknown [facility] History of Present illness Narrative 06-19-2023 Nakul Vaughan DO - 06/19/2023 8:10 AM EST Note Date & Type Note Facility 06-19-2023 History of Presen t illness Narrative Reason for Appointment: Patient ID: Racquel Yadav is a 27 y.o. female who presents for TELEHEALTH FOLLOW UP and Infertility Patient presents today via telephone call for a telehealth appointment. Patients Phone #: [phone] (mobile) Current Medications: has a current medication [...] Nakul Vaughan DO documented in this encounter [facility] Hospital Discharge instructions 07-29-2021 Note Date & Type Note Facility 07-29-2021 Hospital Discharg e instructions Patient Education 07/29/2021 17:20:52 [employer]PER[employer] - Post D&C, Hysteroscopy, LEEP or Essure/Laparoscopy [...] Up Care 07/12/2021 14:08:06 With:Mark Moffett Address: [address] [place], [place] [id number]- [facility] (1) When:2 weeks Comments:Call for any problems. [facility] Evaluation + Plan note Note Date & Type Note Facility Evaluation + Plan note No data available for this section [facility] Evaluation note Note Date & Type Note Facility Evaluation note Diagnosis Female infertility Female infertility of unspecified origin documented in this encounter [facility] Discharge instructions Note Date & Type Note Facility Hospital Discharge instructions No data available for this section [facility] Progress note Note Date & Type Note Facility Progress note No data available for this section [facility] Summary Purpose Family History No [...] section and content) DATE CREATED AUTHOR 10/31/2017 [facility] DATE CREATED AUTHOR AUTHOR'S ORGANIZ ATION 06/10/2020 [employer] DATE CREATED AUTHOR AUTHOR'S ORGANIZ ATION 11/21/2023 [facility] Reason for Visit (unrecogniz ed section and content) Reason Comments TELEHEALTH FOLLOW UP Infertility Patient Care team informatio n (unrecognized section and content) Personnel Name: Dave Red MD Address: Address: [address] [place] [address] Personnel Name: Dave Red MD Address: Address: [address] [place] [address] Personnel Name: Dave Red MD Address: Address: [address] [place] [address] Personnel Name: Dave Red MD Address: Address: [address] [place] [address] FOR RECORDS PERTAINING TO PATIENTS WHO ARE [...] BE BASED ON THE PRIMARY CLINICAL RECORDS. [employer] [facility]. provides no warranty or guarantee of the accuracy or completeness of information in this document.
[2023-12-26 08:12] LABS: Progesterone 9.9 ng/mL (.)
== END 2023-12-24 16:13 | disposition home or self-care (01) ==
LOC: LAB 16:16
PROVIDERS: Visit Provider Obstetrics & Gynecology
DX: E28.2 Polycystic ovarian syndrome (principal); N97.0 Female infertility associated with anovulation; N83.9 Noninflammatory disorder of ovary, fallopian tube and broad ligament, unspecified
CPT/HCPCS: 36415; 84144

== ENCOUNTER 2024-01-03 14:19 | Outpatient (OUT) | payer OTHER, SELFPAY ==
--- OUTSIDE RECORDS SUMMARY | 2024-01-03 14:39 | XMS_ITS | CCD ---
Author Organization [facility] CliniSydc Care Team Providers Care Bridge Tender Name Role Phone PHYSICIAN, DEFAULT Unavailable Unavailable [...] Medication Allergies] Propensity to adverse reactions (disorder) [facility] Repository Medications Current Medications Medication Drug Class(es) Dates Sig (Normalized) Sig (Original) ibuprofen 600 mg oral tablet (2 sources) Nonsteroidal Anti-inflammator y Drug Start: 2 take 1 tablet by mouth every six hours ibuprofen 600 mg Tab 600 mg = 1 tab(s), Oral, q6hr, # 10 tab(s), Refills(s) 0, Pharmacy: [facility], 164, cm, 07/20/21 [...] Victoriano CAR, Jeane Primary Care Physician - Dvae Red MD This Is Your Medications List [...] Follow Up with Teofilo BRANDT, Dave Rosen, [facility] When: Where: [place] [address]- Medications What When Instructions Unchanged letrozole (letrozole [...] water. ? Keep raw meats separate from nabpw-hz-zox foods, such as fruits and vegetables. ? health/safety job titles, meat, poultry, and eggs to the (more content not included)... Normal [facility] Family Medicine Office/Clini c Noteon 11-15-2023 [...] with voice recognition software. Occasional wrong-word or ?nhmwk-z-wlwg? substitutions may have occurred due to the [...] of the extremity. She may also use astf-dab-pmvzvsy analgesics such as ibuprofen or Tylenol per package instructions for comfort. Declines need for work note today. 1. Hand pain, right (M79.641: Pain in right hand) Hand x-ray was negative. Patient encouraged to use rest, ice, compression and elevation for symptom management. As above can use ihxq-zsv-ruoxsft analgesics such as Tylenol or ibuprofen per [...] BRANDT, Dave Rosen, FAM [address] [place] [address]- Additional Instructions: Patient Education Healthy Eating Exercising to Lose Weight BMI for Adults How to Use Cold Therapy, Fnbc-pu-Jqwp Hand Pain Problem List/Past Medical History Ongoing [...] 09/20/2018 Employment/School Employed, Work/School description: Works at [employer]. Previous employment/school: Student. Activity level: Occasional physical work. Highest education level: Some college. Operates hazardous equipment: No., 09/20/2018 Exercise Exercise duration: 4. Exercise frequency: 5-6 times/week. Self assessment: Fair condition. Exercise type: Walking., (more content not included)... Normal [facility] Comment on above: Result Comment: Elec [...] mGy = . DAP = . Normal [facility] C Urineon 07-25-2023 Bacteria identified Cx [...] Locations R1: This test was performed at: [facility], [address] [place] [address], [facility] , , [facility] Comment on above: Performed By: #### 2 [id number] #### [facility] [address] [place] [address] Ambulatory Visit Summaryon 0 07-23-2023 Ambulatory Visit [...] Jimenez When: Where: [address] [place] [address]- Medications What When Instructions Unchanged letrozole (letrozole [...] keep your urine pale yellow. ? Take hpoi-thy-wosgzcd or prescription medicines. ? Eat foods that are high in fiber, such as beans, whole grains, and fresh fruits and vegetables. ? Limit foods that are high in fat and processed sugars, such as fried or sweet foods. General instructions ? Take hsym-bhr-vnlqthq and prescription medicines only as told by [...] muscles that help control urination. ? Take zcbp-rqb-bthwkjk and prescripti (more content not included)... Normal [facility] Family Medicine Office/Clini c Noteon 07-23-2023 [...] denies [facility] letrozole Pt is trying to get - has never ovulated- not sure if this is the pain she is feeling History of Present Illness I have reviewed and verified the staff HPI to be accurate for this encounter. Portions of this record have been created with voice recognition software. Occasional wrong-word or ?ewvrz-e-ftyc? substitutions may have occurred due to the inherent limitations of voice recognition software. 27-year-old female [facility] today with chief complaint of [...] with this as she should contact her BREAKER TABLE WORKER Dr. Vaughan for further evaluation in which [...] of Est. Patient Straight Fwd 10-19 Min [id number] 2. BMI 32.0-32.9,adult (Z68.32: Body mass index [BMI] 32.0-32.9, adult) The standard range for ages 18 and older is >=18.5 and < 25 kg/m2. Your BMI today was above this range, this falls in the overweight to obese category and there are medical benefits to weight loss. We can offer counselling, referral, a (more content not included)... Normal [facility] Comment on above: Result Comment: Elec [...] numbers. This can be done either in [place]ian (U.S.) or metric measurements. Note that charts and online BMI calculators are available to help you find your BMI quickly and easily without having to do these calculations yourself. To calculate your BMI in [place]ian (U.S.) measurements: 1. Measure your weight in [...] for Disease Control and Prevention: www.cdc.gov ? [place] Heart Association: www.heart.org ? National Heart, Lung, and Blood [place]: www.nhlbi.nih.gov Summary ? Body mass index (BMI) is a number that is calculated from a person's weight and height. ? BMI may help estimate how much of a person's weight is composed of fat. BMI can help identify those who may be at higher risk for certain medical problems. ? BMI can be measured using [place]ian measurements or metric measurements. ? BMI charts are used to identify whether you are underweight, normal weight, overweight, or obese. This information is not intended to replace advice given to you by your health care provider. Make sure you discuss any questions you have with your health care provider. Document Revised: 01/14/2020 Document Reviewed: 11/21/2019 Live[employer] Patient Education ? 2022 [employer]. Urology Urinary Frequency, Adult Urinary frequency [...] at home: (more content not included)... Normal [facility] Provider Letteron 07-23-2023 Provider Letter (Inserted Image. Minerva ble to display) July 23, 2023 RACQUEL YADAV [address] [place] [address] : 1995 To Whom It May Concern, Please excuse above patient from work. Date of Illness: 07/23/2023 May Return to Work On:07/24/2023 Sincerely, [facility] [address] [place] [address], [place] [address] Normal [facility] BREAKER TABLE WORKER - Office Visiton BREAKER TABLE WORKER - Office Visit Diagnoses/Problems Assessed History of PCOS (polycystic ovarian syndrome) (256.4) (E28.2) Fertility testing (V26.21) (Z31.41) Screening for STD (sexually transmitted disease) (V74.5) (Z11.3) PCOS (polycystic ovarian syndrome) (256.4) (E28.2) Oligomenorrhea (626.1) (N91.5) Orders Anti Mullerian Hormone; Status:Active; Requested for:21Uus0006; 17-Hydroxyprogesterone, Serum; Status:Active; Requested for:03Noh3015; Antithyroid Perox. Ab; Status:Active; Requested for:28Gji4722; Complete Blood Count; Status:Active; Requested for:24Mxt1861; DHEA Sulfate, Serum; Status:Active; Requested for:21Djc6706; GC + Chlamydia By Amplified Detection; Status:Active; Requested for:44Hvk0472; HCG, Beta Quantitative; Status:Active; Requested for:39Cmd4182; Hemoglobin A1C; Status:Active; Requested for:75Swc9745; Hepatitis B Surface Antigen; Status:Active; Requested for:09Jun2020; [...] Blood type [ ] Genetic Screen with [employer] - will consider [x ] Take vitamins, vitamin D [x ] Return to see me after workup complete to discuss management plan [x ] Education: New infertility packet to be mailed to patient [x ] Engaged MD albin Johnson MD [facility] [phone] [place] [phone] [employer] Provider Impressions 24 year old with oligomenorrhea, [...] Blood type [ ] Genetic Screen with [employer] - will consider [x ] Take vitamins, vitamin D [x ] Return to see me after workup complete to discuss management plan [x ] Education: New infertility packet to be mailed to patient [x ] Engaged MD albin Johnson MD [facility] [phone] [place] [phone] [employer] Appointment Duration:. 45 minutes; greater than half [...] trying for 4 years. History of Present Wndrmlb7606/09/2020 11:15AM RACQUEL VAZQUEZ , 24 year is contacted for an (audio-visual, or audio only) Telehealth visit. Today's visit was provided through telemedicine conferencing: Using [employer] platform. Consent: The concept of telemedicine? 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 Prior established pregnancies: No Toxic habits: Occasional [...] Recorded: 09Jun2020 11:02AM Height5 ft 5 in Jlgjig001 lb BMI Mgonagyzya95.46 BSA Calculated1.82 Tobacco Useb) No Fall Screeninga) No falls within the last year [id number] Gravida0 Para0 Pain Scale0 Physical Exam This is a telehealth appointment Signatures Electronically signed by : Rayshawn Johnson MD; Jun 09 2020 11:52AM EST (Author) Normal [facility] HUMERUS LEFTon 12-01-2016 [facility] LEFT [facility] [place] [address] ==Patient Name: RACQUEL VAZQUEZ : 1995Sex: FAge: Race: WhiteMRN: [id number]. Location: 84Patient Status: Date: 12/01/2016 4:25:00 PMCompleted Date: 12/01/2016 04:28 PMRequesting Provider: CARI GOOD Attending Provider: Report Copy To: Signs & Symptoms: S42.352D Displ commnt fx shaft of humer, l arm, 7thD B94Lefnwyk: AthenaComments: , , Views (X-RAY, HUMERUS): AP, Lateral , Weight Bearing?: Y , With or Without Brace/Cast/Collar: Without , With Magnification Marker?: N , , , Ordering Provider - CARI GOOD MD , Rendering Provider - CARI GOOD MD , Exam: HUMERUS LEFTAccession #: [id number] =========HUMERUS LEFT 12/01/2016 4:28 PM EDT SIGNS [...] Electronically signed by:Subhash Campos M.D.. Transcribed by: [email or web address], User Resident: Electronically Signed by: SUBHASH CAMPOS @ 12/01/2016 04:35 PM Normal [facility] Comment on above: Order Comment: , , V iews (X-RAY, HUMERUS): AP, Lateral , Weight Bearing?: Y , With or Without Brace/Cast/Collar: Without , With Magnification Marker?: N , , , Ordering Provider - CARI GOOD MD , Rendering Provider Gloria GOOD MD , Vital Signs Date Time Vital Sign Value Performing Clinician Facility 11-15-2023 12:56-0400 Blood Pressure Location Barby Pastrana [facility] 11-15-2023 12:56-0400 Body temperature 98.06 [degF] Barby Pastrana [facility] 11-15-2023 12:56-0400 Diastolic blood pressure 82 mm[Hg] Barby Peraltaer [facility] 11-15-2023 12:56-0400 Heart rate 82 /min Barby Peraltaer [facility] 11-15-2023 12:56-0400 Respiratory rate 18 /min Barby Pastrana [facility] 11-15-2023 12:56-0400 SaO2% (BldA) [Mass fraction] 99 % Barby Pastrana [facility] 11-15-2023 12:56-0400 Systolic blood pressure 120 mm[Hg] Barby Peraltaer [facility] 07-23-2023 10:31-0400 Blood Pressure Location Cristi Les [facility] 07-23-2023 10:31-0400 Body temperature 98.24 [degF] Cristi Les [facility] 07-23-2023 10:31-0400 Diastolic blood pressure 74 mm[Hg] Cristi Saldana [facility] 07-23-2023 10:31-0400 Heart rate 81 /min Cristi Saldana [facility] 07-23-2023 10:31-0400 SaO2% (BldA) [Mass fraction] 97 % Cristi Saldana [facility] 07-23-2023 10:31-0400 Systolic blood pressure 118 mm[Hg] Cristi Saldana [facility] 07-29-2021 18:50-0400 Body temperature 96.98 [degF] Mark Moffett [facility] 07-29-2021 18:50-0400 Diastolic blood pressure 58 mm[Hg] Mark Moffett [facility] 07-29-2021 18:50-0400 Heart rate 70 /min Mark Moffett [facility] 07-29-2021 18:50-0400 Respiratory rate 12 /min Mark Moffett [facility] 07-29-2021 18:50-0400 SaO2% (BldA) [Mass fraction] 99 % Mark Moffett [facility] 07-29-2021 18:50-0400 Systolic blood pressure 100 mm[Hg] Mark Moffett [facility] 07-29-2021 17:50-0400 Body temperature 97.52 [degF] Mark Moffett [facility] 07-29-2021 17:50-0400 Diastolic blood pressure 60 mm[Hg] Mark Moffett [facility] 07-29-2021 17:50-0400 Heart rate 70 /min Mark Moffett [facility] 07-29-2021 17:50-0400 Respiratory rate 12 /min Mark Moffett [facility] 07-29-2021 17:50-0400 SaO2% (BldA) [Mass fraction] 99 % Mark Moffett [facility] 07-29-2021 17:50-0400 Systolic blood pressure 110 mm[Hg] Mark Moffett [facility] 07-29-2021 17:49-0400 Body temperature 97.52 [degF] Mark Moffett [facility] 07-29-2021 17:49-0400 Diastolic blood pressure 79 mm[Hg] Mark Moffett [facility] 07-29-2021 17:49-0400 Heart rate 69 /min Mark Moffett [facility] 07-29-2021 17:49-0400 Respiratory rate 12 /min Mark Moffett [facility] 07-29-2021 17:49-0400 SaO2% (BldA) [Mass fraction] 99 % Mark Moffett [facility] 07-29-2021 17:49-0400 Systolic blood pressure 113 mm[Hg] Mark Moffett [facility] 07-29-2021 17:10-0400 Respiratory rate 24 /min Mark Moffett [facility] 07-29-2021 17:05-0400 Respiratory rate 24 /min Mark Moffett [facility] 07-29-2021 17:00-0400 Respiratory rate 27 /min Mark Moffett [facility] 07-29-2021 14:40-0400 Heart rate 72 /min Mark Moffett [facility] 07-29-2021 14:37-0400 Blood Pressure Location Mark Moffett [facility] 07-29-2021 14:37-0400 Mean blood pressure 93 mm[Hg] Mark Moffett [facility] 07-29-2021 14:37-0400 Blood Pressure Location Mark Moffett [facility] 07-29-2021 14:37-0400 Body temperature 98.24 [degF] Mark Moffett [facility] 07-29-2021 14:37-0400 BP/Pulse Patient Position Mark Moffett [facility] 07-29-2021 14:37-0400 Mean blood pressure 91 mm[Hg] Mark Zuhair [facility] Encounters Encounter Date Encounter Type Care Provider Facility Start: 11-15-2023 End: 11-15-2023 ambulatory Barby Pastrana Facility:[facility] [place] Start: 11-15-2023 End: 11-15-2023 Patient encounter procedure Barby Pastrana [facility] Start: 07-23-2023 End: 07-23-2023 Lab Drop off Cristi Saldana [facility] Start: 07-23-2023 End: 07-23-2023 ambulatory Cristi Saldana Facility:[facility] Start: 07-23-2023 End: 07-23-2023 Patient encounter procedure Cristi Saldana [facility] Start: 06-19-2023 End: 06-19-2023 Phys/qhp telephone evaluation 5-10 min Nakul Vaughan DO Work Phone: [facility] Comment on above: Female infertility Start: 09-21-2021 End: 09-21-2021 Lab Drop off Steph Bardy [facility] Start: 07-29-2021 End: 07-29-2021 Admission to same day surgery center Mark Rosen Zuhair [facility] Start: 12-01-2016 End: 12-02-2016 Ambulatory VITHAL SHENDGE Facility:[facility] Start: 11-01-2016 End: 11-02-2016 Ambulatory DEFAULT PHYSICIAN Facility:[facility] Procedures Date Procedure Procedure Detail Performing Clinician Start: 09-15-2016 left humerus ORIF Mark Zuhair Appendectomy Mark Moffett Payers Date Payer Category Payer Unknown [id number] 1995 Unknown [id number] 1995 Unknown [id number] [id number] 1995 Unknown [id number] [id number] [id number] 1995 Unknown [id number] [id number] Unknown [id number] Unknown Social History Date Type Detail Facility Start: 12-14-2020 End: 11-15-2023 Tobacco smoking status Never smoked tobacco (finding) [facility] Comment on above: patient denies Tobacco smoking status Never [facility] Comment on above: patient denies Sex Assigned At Female [facility] Tobacco smoking stat us WIIS Tobacco smoking consumption unknown [facility] Start: 1995 Sex Assigned At Female [facility] Start: 01-09-2023 Gender identity Identifies as female gender (finding) [facility] Start: 01-09-2023 Sexual orientation Heterosexual (fin ding) [facility] Functional Status Date Assessment Result Facility 11-15-2023 Functional Status N/A [facility] 07-23-2023 Functional Status N/A [facility] Discharge instructions 11-15-2023 Note [...] soapy water. ?Keep raw meats separate from jnwwf-jb-hgo foods, such as fruits and vegetables. ?health/safety job titles, meat, poultry, and eggs to the recommended [...] include 1 slice of bread, 1 cup frhmz-am-fmc cereal, 3 cups popcorn, or cup cooked [...] provider. Document Revised: 12/20/2021 Document Reviewed: 12/20/2021 [employer] Patient Education 2022 [employer]. 11/15/2023 13:24:01 Exercising to Lose Weight Exercising [...] your health care provider or diet and military source operations specialist (dietitian). This may include: ?Eating fewer [...] provider. Document Revised: 06/19/2021 Document Reviewed: 06/19/2021 Live[employer] Patient Education 2022 [employer]. 11/15/2023 13:23:59 BMI for Adults BMI for [...] numbers. This can be done either in [place] (U.S.) or metric measurements. Note that charts and online BMI calculators are available to help you find your BMI quickly and easily without having to do these calculations yourself. To calculate your BMI in [place] (U.S.) measurements: 1.Measure your weight in pounds [...] Centers for Disease Control and Prevention: www.cdc.gov [place] Heart Association: www.heart.org National Heart, Lung, and Blood [place]: www.nhlbi.nih.gov Summary Body mass index (BMI) is a number that is calculated from a person's weight and height. BMI may help estimate how much of a person's weight is composed of fat. BMI can help identify those who may be at higher risk for certain medical problems. BMI can be measured using [place]ian measurements or metric measurements. BMI charts are used to identify whether you are underweight, normal weight, overweight, or obese. This information is not intended to replace advice given to you by your health care provider. Make sure you discuss any questions you have with your health care provider. Document Revised: 01/14/2020 Document Reviewed: 11/21/2019 Live[employer] Patient Education 2022 [employer]. 11/15/2023 13:23:56 How to Use Cold Therapy, Mrbu-ej-Yvhb How to Use Cold Therapy Cold therapy, [...] provider. Document Revised: 03/09/2021 Document Reviewed: 03/09/2021 [employer] Patient Education 2022 [employer] Inc. 11/15/2023 13:23:47 Hand Pain Hand Pain [...] discomfort: Managing pain, stiffness, and swelling Take tlrc-axo-jydbvoj and prescription medicines only as told by [...] provider. Document Revised: 08/10/2022 Document Reviewed: 08/11/2021 [employer] Patient Education 2022 [employer]. Follow Up Care 11/15/2023 10:03:53 With:Teofilo BRANDT, Dave Rosen, TREVOR Address: [address] [place] [id number]- When: Unknown [facility] Clinical Note 11-15-2023 Note Date [...] water. ? Keep raw meats separate from exhed-ay-rfm foods, such as fruits and vegetables. ? health/safety job titles, meat, poultry, and eggs to the recommended [...] include 1 slice of bread, 1 cup theqx-sl-pzs cereal, 3 cups popcorn, or ? cup [...] about 5 teas (more content not included)... [facility] Evaluation + Plan note 07-23-2023 Note Date & Type Note Facility 07-23-2023 Evaluation + Plan note Diagnostic Tests PendingUrine Culture 07/23/23 [facility] Discharge instructions 07-23-2023 Note Date & [...] to keep your urine pale yellow. ?Take ssgz-cot-wnlzyat or prescription medicines. ?Eat foods that are high in fiber, such as beans, whole grains, and fresh fruits and vegetables. ?Limit foods that are high in fat and processed sugars, such as fried or sweet foods. General instructions Take hrye-vwf-xczlmol and prescription medicines only as told by [...] the muscles that help control urination. Take xguw-ytw-wefvlid and prescription medicines only as told by your health care provider. Contact a health care provider if your symptoms do not improve or get worse. This information is not intended to replace advice given to you by your health care provider. Make sure you discuss any questions you have with your health care provider. Document Revised: 11/26/2020 Document Reviewed: 11/26/2020 Live[employer] Patient Education 2022 [employer]. 07/23/2023 10:36:54 BMI for Adults BMI for [...] numbers. This can be done either in [place]ian (U.S.) or metric measurements. Note that charts and online BMI calculators are available to help you find your BMI quickly and easily without having to do these calculations yourself. To calculate your BMI in [place] ([place].) measurements: 1.Measure your weight in pounds [...] Centers for Disease Control and Prevention: www.cdc.gov [place] Heart Association: www.heart.org National Heart, Lung, and Blood [place]: www.nhlbi.nih.gov Summary Body mass index (BMI) is a number that is calculated from a person's weight and height. BMI may help estimate how much of a person's weight is composed of fat. BMI can help identify those who may be at higher risk for certain medical problems. BMI can be measured using [place]ian measurements or metric measurements. BMI charts are used to identify whether you are underweight, normal weight, overweight, or obese. This information is not intended to replace advice given to you by your health care provider. Make sure you discuss any questions you have with your health care provider. Document Revised: 01/14/2020 Document Reviewed: 11/21/2019 Live[employer] Patient Education 2022 [employer]. Follow Up Care 07/23/2023 09:05:39 With:Teofilo BRANDT, TREVOR Jimenez Address: [address] [place] [id number]- When: Unknown [facility] History of Present [...] for a telehealth appointment. Patients Phone #: [phone] (mobile) Current Medications: has a current medication [...] Nakul Vaughan DO documented in this encounter [facility] Discharge instructions 07-29-2021 Note Date & Type Note Facility 07-29-2021 Hospital Discharg e instructions Patient Education 07/29/2021 17:20:52 FARM ADVISER - Post D&C, Hysteroscopy, LEEP or Essure/Laparoscopy [...] Up Care 07/12/2021 14:08:06 With:Mark Moffett Address: [address] [place], [place] [id number]- [facility] (1) When:2 weeks Comments:Call for any problems. [facility] Evaluation + Plan note Note Date & Type Note Facility Evaluation + Plan note No data available for this section [facility] Evaluation note Note Date & Type Note Facility Evaluation note Diagnosis Female infertility Female infertility of unspecified origin documented in this encounter [facility] Discharge instructions Note Date & Type Note Facility Hospital Discharge instructions No data available for this section [facility] Progress note Note Date & Type Note Facility Progress note No data available for this section [facility] Convenient Care Summary Purpose Family [...] section and content) DATE CREATED AUTHOR 10/31/2017 [facility] DATE CREATED AUTHOR AUTHOR'S ORGANIZ ATION 06/10/2020 [employer] DATE CREATED AUTHOR AUTHOR'S ORGANIZ ATION [facility] Reason for Visit (unrecogniz ed section and content) Reason Comments TELEHEALTH FOLLOW UP Infertility Patient Care team informatio n (unrecognized section and content) Personnel Name: Dave Red MD Address: Address: [address] [place] [address] Personnel Name: Dave Red MD Address: Address: [address] [place] [address] Personnel Name: Dave Red MD Address: Address: [address] [place] [address] Personnel Name: Dave Red MD Address: Address: [address] [place] [address] FOR RECORDS PERTAINING TO PATIENTS WHO ARE [...] BE BASED ON THE PRIMARY CLINICAL RECORDS. [employer] [facility]. provides no warranty or guarantee of the accuracy or completeness of information in this document.
[2024-01-03 15:15] LABS: HCG Quantitative 120 mIU/mL
== END 2024-01-03 14:20 | disposition home or self-care (01) ==
LOC: LAB 14:21
PROVIDERS: Visit Provider Obstetrics & Gynecology
DX: N92.6 Irregular menstruation, unspecified (principal)
CPT/HCPCS: 36415; 84702

== ENCOUNTER 2024-01-05 10:05 | Outpatient (OUT) | payer OTHER, SELFPAY ==
--- OUTSIDE RECORDS SUMMARY | 2024-01-05 10:09 | XMS_ITS | CCD ---
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 Name Role Phone PHYSICIAN, DEFAULT Unavailable Unavailable [...] Medication Allergies] Propensity to adverse reactions (disorder) [facility] Repository Medications Current Medications Medication Drug Class(es) Dates Sig (Normalized) Sig (Original) ibuprofen 600 mg oral tablet (2 sources) Nonsteroidal Anti-inflammator y Drug Start: 2 take 1 tablet by mouth every six hours ibuprofen 600 mg Tab 600 mg = 1 tab(s), Oral, q6hr, # 10 tab(s), Refills(s) 0, Pharmacy: [facility], 164, cm, 07/20/21 5:00:00 [...] Follow Up with Teofilo BRANDT, Dave Rosen, [facility] When: Where: [place] [address]- Medications What When Instructions Unchanged letrozole (letrozole [...] water. ? Keep raw meats separate from vndlg-pq-lje foods, such as fruits and vegetables. ? maintenance shop manager, meat, poultry, and eggs to the (more content not included)... Normal [facility] Family Medicine Office/Clini c Noteon 11-15-2023 Family [...] with voice recognition software. Occasional wrong-word or ?eeabn-w-jhql? substitutions may have occurred due to the [...] of the extremity. She may also use yhfw-oxw-plgyxhd analgesics such as ibuprofen or Tylenol per package instructions for comfort. Declines need for work note today. 1. Hand pain, right (M79.641: Pain in right hand) Hand x-ray was negative. Patient encouraged to use rest, ice, compression and elevation for symptom management. As above can use wnsw-jqa-dhbepee analgesics such as Tylenol or ibuprofen per [...] BRANDT, Dave Rosen, FAM [address] [place] [address]- Additional Instructions: Patient Education Healthy Eating Exercising to Lose Weight BMI for Adults How to Use Cold Therapy, Sopz-wh-Dpet Hand Pain Problem List/Past Medical History Ongoing [...] 09/20/2018 Employment/School Employed, Work/School description: Works at [employer]. Previous employment/school: Student. Activity level: Occasional physical work. Highest education level: Some college. Operates hazardous equipment: No., 09/20/2018 Exercise Exercise duration: 4. Exercise frequency: 5-6 times/week. Self assessment: Fair condition. Exercise type: Walking., (more content not included)... Normal [facility] Comment on above: Result Comment: Elec [...] mGy = . DAP = . Normal [facility] C Urineon 07-25-2023 Bacteria identified Cx Nom [...] Locations R1: [facility], [address] [place] [address], [facility] , , [facility] Comment on above: Performed By: #### [id number] #### [facility] [address] [place] [address] Ambulatory Visit Summaryon 0 07-23-2023 Ambulatory Visit [...] Jimenez When: Where: [address] [place] [address]- Medications What When Instructions Unchanged letrozole (letrozole [...] keep your urine pale yellow. ? Take exdx-wgz-jbquptc or prescription medicines. ? Eat foods that are high in fiber, such as beans, whole grains, and fresh fruits and vegetables. ? Limit foods that are high in fat and processed sugars, such as fried or sweet foods. General instructions ? Take rdqe-hzs-usqwagp and prescription medicines only as told by [...] muscles that help control urination. ? Take lqun-dmb-deduynv and prescripti (more content not included)... Normal [facility] Family Medicine Office/Clini c Noteon 07-23-2023 [...] denies Pt had progesterone at [facility] of [facility], letrozole Pt is trying to get - has never ovulated- not sure if this is the pain she is feeling History of Present Illness I have reviewed and verified the staff HPI to be accurate for this encounter. Portions of this record have been created with voice recognition software. Occasional wrong-word or ?johlm-x-ewfy? substitutions may have occurred due to the inherent limitations of voice recognition software. 27-year-old female presents to [facility] care today with chief complaint of [...] with this as she should contact her BOAT HOP Dr. Vaughan for further evaluation in which [...] of Est. Patient Straight Fwd 10-19 Min [id number] 2. BMI 32.0-32.9,adult (Z68.32: Body mass index [BMI] 32.0-32.9, adult) The standard range for ages 18 and older is >=18.5 and < 25 kg/m2. Your BMI today was above this range, this falls in the overweight to obese category and there are medical benefits to weight loss. We can offer counselling, referral, a (more content not included)... Normal [facility] Comment on above: Result Comment: Elec [...] numbers. This can be done either in [place] ([place].S[place] or metric measurements. Note that charts and online BMI calculators are available to help you find your BMI quickly and easily without having to do these calculations yourself. To calculate your BMI in [place] (U.S[place] measurements: 1. Measure your weight in [...] for Disease Control and Prevention: www.cdc.gov ? [place] Heart Association: www.heart.org ? National Heart, Lung, and Blood [place]: www.nhlbi.nih.gov Summary ? Body mass index (BMI) is a number that is calculated from a person's weight and height. ? BMI may help estimate how much of a person's weight is composed of fat. BMI can help identify those who may be at higher risk for certain medical problems. ? BMI can be measured using [place] measurements or metric measurements. ? BMI charts are used to identify whether you are underweight, normal weight, overweight, or obese. This information is not intended to replace advice given to you by your health care provider. Make sure you discuss any questions you have with your health care provider. Document Revised: 01/14/2020 Document Reviewed: 11/21/2019 [employer] Patient Education ? 2022 [employer] Urology Urinary Frequency, Adult Urinary frequency [...] at home: (more content not included)... Normal [facility] Provider Letteron 07-23-2023 Provider Letter (Inserted Image. Minerva ble to display) July 23, 2023 RACQUEL YADAV [address] [place] [address] : 1995 To Whom It May Concern, Please excuse above patient from work. Date of Illness: 07/23/2023 May Return to Work On:07/24/2023 Sincerely, [facility] [address] [place] [address], [place] [address] Normal [facility] BOAT HOP - Office Visiton BOAT HOP - Office Visit Diagnoses/Problems Assessed History of PCOS (polycystic ovarian syndrome) (256.4) (E28.2) Fertility testing (V26.21) (Z31.41) Screening for STD (sexually transmitted disease) (V74.5) (Z11.3) PCOS (polycystic ovarian syndrome) (256.4) (E28.2) Oligomenorrhea (626.1) (N91.5) Orders Anti Mullerian Hormone; Status:Active; Requested for:49Eqw6525; 17-Hydroxyprogesterone, Serum; Status:Active; Requested for:54Hha2849; Antithyroid Perox. Ab; Status:Active; Requested for:53Tih8059; Complete Blood Count; Status:Active; Requested for:23Fkx4133; DHEA Sulfate, Serum; Status:Active; Requested for:08Prv6224; GC + Chlamydia By Amplified Detection; Status:Active; Requested for:24Tug9587; HCG, Beta Quantitative; Status:Active; Requested for:50Zix0785; Hemoglobin A1C; Status:Active; Requested for:15Wvo4396; Hepatitis B Surface Antigen; Status:Active; Requested for:09Jun2020; [...] Blood type [ ] Genetic Screen with [email or web address] - will consider [x ] Take vitamins, vitamin D [x ] Return to see me after workup complete to discuss management plan [x ] Education: New infertility packet to be mailed to patient [x ] Engaged MD albin Johnson MD [facility] [phone] [place] [phone] [place] Provider Impressions 24 year old with oligomenorrhea, [...] Blood type [ ] Genetic Screen with [email or web address] - will consider [x ] Take vitamins, vitamin D [x ] Return to see me after workup complete to discuss management plan [x ] Education: New infertility packet to be mailed to patient [x ] Engaged MD albin Johnson MD [facility] [phone] [place] [phone] [place] Appointment Duration:. 45 minutes; greater than half [...] trying for 4 years. History of Present Rnoepmu2306/09/2020 11:15AM RACQUEL VAZQUEZ , 24 year is contacted for an (audio-visual, or audio only) Telehealth visit. Today's visit was provided through telemedicine conferencing: Using [employer] platform. Consent: The concept of telemedicine? 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 Toxic habits: Non smoker, Rare alcohol use Exercise Hx: Yes, 1-2 x/week PARTNER- Name- Jos Yadav Age- 24; [birth year]11/1996 Occupation- Business [employer] Prior established pregnancies: No Toxic habits: Occasional [...] Recorded: 09Jun2020 11:02AM Height5 ft 5 in Njjgmy963 lb BMI Ulcrofyjgu05.46 BSA Calculated1.82 Tobacco Useb) No Fall Screeninga) No falls within the last year [id number] Gravida0 Para0 Pain Scale0 Physical Exam This is a telehealth appointment Signatures Electronically signed by : Rayshawn Johnson MD; Jun 09 2020 11:52AM EST (Author) Normal [facility] HUMERUS LEFTon 12-01-2016 [facility] LEFT [facility] [address] [place] [address] ==Patient Name: RACQUEL VAZQUEZ : 1995Sex: FAge: Race: WhiteMRN: [id number]. Location: 84Patient Status: Date: 12/01/2016 4:25:00 PMCompleted Date: 12/01/2016 04:28 PMRequesting Provider: CARI GOOD Attending Provider: Report Copy To: Signs & Symptoms: S42.352D Displ commnt fx shaft of humer, l arm, 7thD J44Fpyglai: AthenaComments: , , Views (X-RAY, HUMERUS): AP, Lateral , Weight Bearing?: Y , With or Without Brace/Cast/Collar: Without , With Magnification Marker?: N , , , Ordering Provider - CARI GOOD MD , Rendering Provider - CARI GOOD MD , Exam: HUMERUS LEFTAccession #: [id number] =========HUMERUS LEFT 12/01/2016 4:28 PM EDT SIGNS [...] Electronically signed by:Subhash Campos M.D.. Transcribed by: [email or web address], User Resident: Electronically Signed by: SUBHASH CAMPOS @ 12/01/2016 04:35 PM Normal [facility] Comment on above: Order Comment: , , V iews (X-RAY, HUMERUS): AP, Lateral , Weight Bearing?: Y , With or Without Brace/Cast/Collar: Without , With Magnification Marker?: N , , , Ordering Provider - CARI GOOD MD , Rendering Provider Gloria GOOD MD , Vital Signs Date Time Vital Sign Value Performing Clinician Facility 11-15-2023 12:56-0400 Blood Pressure Location Barby Pastrana [facility] 11-15-2023 12:56-0400 Body temperature 98.06 [degF] Barby Pastrana [facility] 11-15-2023 12:56-0400 Diastolic blood pressure 82 mm[Hg] Barby Peraltaer [facility] 11-15-2023 12:56-0400 Heart rate 82 /min Barby Peraltaer [facility] 11-15-2023 12:56-0400 Respiratory rate 18 /min Barby Pastrana [facility] 11-15-2023 12:56-0400 SaO2% (BldA) [Mass fraction] 99 % Barby Pastrana [facility] 11-15-2023 12:56-0400 Systolic blood pressure 120 mm[Hg] Barby Peraltaer [facility] 07-23-2023 10:31-0400 Blood Pressure Location Cristi Les [facility] 07-23-2023 10:31-0400 Body temperature 98.24 [degF] Cristi Les [facility] 07-23-2023 10:31-0400 Diastolic blood pressure 74 mm[Hg] Cristi Saldana [facility] 07-23-2023 10:31-0400 Heart rate 81 /min Cristi Saldana [facility] 07-23-2023 10:31-0400 SaO2% (BldA) [Mass fraction] 97 % Cristi Saldana [facility] 07-23-2023 10:31-0400 Systolic blood pressure 118 mm[Hg] Cristi Saldana [facility] 07-29-2021 18:50-0400 Body temperature 96.98 [degF] Mark Moffett [facility] 07-29-2021 18:50-0400 Diastolic blood pressure 58 mm[Hg] Mark Moffett [facility] 07-29-2021 18:50-0400 Heart rate 70 /min Mark Moffett [facility] 07-29-2021 18:50-0400 Respiratory rate 12 /min Mark Moffett [facility] 07-29-2021 18:50-0400 SaO2% (BldA) [Mass fraction] 99 % Mark Moffett [facility] 07-29-2021 18:50-0400 Systolic blood pressure 100 mm[Hg] Mark Moffett [facility] 07-29-2021 17:50-0400 Body temperature 97.52 [degF] Mark Moffett [facility] 07-29-2021 17:50-0400 Diastolic blood pressure 60 mm[Hg] Mark Moffett [facility] 07-29-2021 17:50-0400 Heart rate 70 /min Mark Moffett [facility] 07-29-2021 17:50-0400 Respiratory rate 12 /min Mark Moffett [facility] 07-29-2021 17:50-0400 SaO2% (BldA) [Mass fraction] 99 % Mark Moffett [facility] 07-29-2021 17:50-0400 Systolic blood pressure 110 mm[Hg] Mark Moffett [facility] 07-29-2021 17:49-0400 Body temperature 97.52 [degF] Mark Moffett [facility] 07-29-2021 17:49-0400 Diastolic blood pressure 79 mm[Hg] Mark Moffett [facility] 07-29-2021 17:49-0400 Heart rate 69 /min Mark Moffett [facility] 07-29-2021 17:49-0400 Respiratory rate 12 /min Mark Moffett [facility] 07-29-2021 17:49-0400 SaO2% (BldA) [Mass fraction] 99 % Mark Moffett [facility] 07-29-2021 17:49-0400 Systolic blood pressure 113 mm[Hg] Mark Moffett [facility] 07-29-2021 17:10-0400 Respiratory rate 24 /min Mark Moffett [facility] 07-29-2021 17:05-0400 Respiratory rate 24 /min Mark Moffett [facility] 07-29-2021 17:00-0400 Respiratory rate 27 /min Mark Moffett [facility] 07-29-2021 14:40-0400 Heart rate 72 /min Mark Moffett [facility] 07-29-2021 14:37-0400 Blood Pressure Location Mark Moffett [facility] 07-29-2021 14:37-0400 Mean blood pressure 93 mm[Hg] Mark Moffett [facility] 07-29-2021 14:37-0400 Blood Pressure Location Mark Moffett [facility] 07-29-2021 14:37-0400 Body temperature 98.24 [degF] Mark Moffett [facility] 07-29-2021 14:37-0400 BP/Pulse Patient Position Mark Moffett [facility] 07-29-2021 14:37-0400 Mean blood pressure 91 mm[Hg] Mark Zuhair [facility] Encounters Encounter Date Encounter Type Care Provider Facility Start: 11-15-2023 End: 11-15-2023 ambulatory Barby Pastrana Facility:[facility] Start: 11-15-2023 End: 11-15-2023 Patient encounter procedure Barby Pastrana [facility] Start: 07-23-2023 End: 07-23-2023 Lab Drop off Cristi Saldana [facility] Start: 07-23-2023 End: 07-23-2023 ambulatory Cristi Saldana Facility:[facility] Start: 07-23-2023 End: 07-23-2023 Patient encounter procedure Cristi Saldana [facility] Start: 06-19-2023 End: 06-19-2023 Phys/qhp telephone evaluation 5-10 min Nakul Vaughan DO Work Phone: [facility] Comment on above: Female infertility Start: 09-21-2021 End: 09-21-2021 Lab Drop off Steph Brady [facility] Start: 07-29-2021 End: 07-29-2021 Admission to same day surgery center Mark Rosen Zuhair [facility] Start: 12-01-2016 End: 12-02-2016 Ambulatory VITHAL SHENDGE Facility:[facility] Start: 11-01-2016 End: 11-02-2016 Ambulatory DEFAULT PHYSICIAN Facility:[facility] Procedures Date Procedure Procedure Detail Performing Clinician Start: 09-15-2016 left humerus ORIF Mark Zuhair Appendectomy Mark Moffett Payers Date Payer Category Payer Unknown [id number] 1995 Unknown [id number] [id number] [id number] 1995 Unknown [id number] [id number] [id number] 1995 Unknown [id number] [id number] [id number] 1995 Unknown [id number] [id number] [id number] Unknown [id number] Unknown Social History Date Type Detail Facility Start: 12-14-2020 End: 11-15-2023 Tobacco smoking status Never smoked tobacco (finding) [facility] Comment on above: patient denies Tobacco smoking status Never [facility] Comment on above: patient denies Sex Assigned At Female [facility] Tobacco smoking stat us CTIS Tobacco smoking consumption unknown [facility] Start: 1995 Sex Assigned At Female [facility] Start: 01-09-2023 Gender identity Identifies as female gender (finding) [facility] Start: 01-09-2023 Sexual orientation Heterosexual (fin ding) [facility] Healthcare Functional Status Date Assessment Result Facility 11-15-2023 Functional Status N/A [facility] 07-23-2023 Functional Status N/A [facility] Discharge instructions 11-15-2023 [...] soapy water. ?Keep raw meats separate from afxqo-xn-ljz foods, such as fruits and vegetables. ?maintenance shop manager, meat, poultry, and eggs to the recommended [...] include 1 slice of bread, 1 cup vahpl-xw-jre cereal, 3 cups popcorn, or cup cooked [...] provider. Document Revised: 12/20/2021 Document Reviewed: 12/20/2021 [employer] Patient Education 2022 [employer]. 11/15/2023 13:24:01 Exercising to Lose Weight Exercising [...] your health care provider or diet and nutrition aides teacher (dietitian). This may include: ?Eating fewer calories. [...] provider. Document Revised: 06/19/2021 Document Reviewed: 06/19/2021 [employer] Patient Education 2022 [employer]. 11/15/2023 13:23:59 BMI for Adults BMI for [...] numbers. This can be done either in [place] ([place] or metric measurements. Note that charts and online BMI calculators are available to help you find your BMI quickly and easily without having to do these calculations yourself. To calculate your BMI in [place] ([place] measurements: 1.Measure your weight in pounds [...] Centers for Disease Control and Prevention: www.cdc.gov [place] Heart Association: www.heart.org National Heart, Lung, and Blood [place]: www.nhlbi.nih.gov Summary Body mass index (BMI) is a number that is calculated from a person's weight and height. BMI may help estimate how much of a person's weight is composed of fat. BMI can help identify those who may be at higher risk for certain medical problems. BMI can be measured using [place] measurements or metric measurements. BMI charts are used to identify whether you are underweight, normal weight, overweight, or obese. This information is not intended to replace advice given to you by your health care provider. Make sure you discuss any questions you have with your health care provider. Document Revised: 01/14/2020 Document Reviewed: 11/21/2019 [employer] Patient Education 2022 [employer]. 11/15/2023 13:23:56 How to Use Cold Therapy, Kqyb-hr-Xzif How to Use Cold Therapy Cold therapy, [...] provider. Document Revised: 03/09/2021 Document Reviewed: 03/09/2021 [employer] Patient Education 2022 [employer] 11/15/2023 13:23:47 Hand Pain Hand Pain [...] discomfort: Managing pain, stiffness, and swelling Take kbhp-ihq-zzlpwlf and prescription medicines only as told by [...] provider. Document Revised: 08/10/2022 Document Reviewed: 08/11/2021 [employer] Patient Education 2022 [employer]. Follow Up Care 11/15/2023 10:03:53 With:Teofilo BRANDT, Dave Rosen, TREVOR Address: [address] [place] [address]- When: Unknown [facility] Clinical Note 11-15-2023 Note [...] water. ? Keep raw meats separate from ubacr-ad-bst foods, such as fruits and vegetables. ? maintenance shop manager, meat, poultry, and eggs to the recommended [...] include 1 slice of bread, 1 cup oyzpb-ov-mqe cereal, 3 cups popcorn, or ? cup [...] about 5 teas (more content not included)... [facility] Evaluation + Plan note 07-23-2023 Note Date & Type Note Facility 07-23-2023 Evaluation + Plan note Diagnostic Tests PendingUrine Culture 07/23/23 [facility] Hospital Discharge instructions 07-23-2023 Note Date & [...] to keep your urine pale yellow. ?Take gqfq-pyj-nibzjjt or prescription medicines. ?Eat foods that are high in fiber, such as beans, whole grains, and fresh fruits and vegetables. ?Limit foods that are high in fat and processed sugars, such as fried or sweet foods. General instructions Take isvr-jhh-pdsyteg and prescription medicines only as told by [...] the muscles that help control urination. Take zbdw-spf-fudnara and prescription medicines only as told by your health care provider. Contact a health care provider if your symptoms do not improve or get worse. This information is not intended to replace advice given to you by your health care provider. Make sure you discuss any questions you have with your health care provider. Document Revised: 11/26/2020 Document Reviewed: 11/26/2020 [employer] Patient Education 2022 [employer]. 07/23/2023 10:36:54 BMI for Adults BMI for [...] numbers. This can be done either in [place] ([place] or metric measurements. Note that charts and online BMI calculators are available to help you find your BMI quickly and easily without having to do these calculations yourself. To calculate your BMI in [place] ([place] measurements: 1.Measure your weight in pounds [...] Centers for Disease Control and Prevention: www.cdc.gov [place] Heart Association: www.heart.org National Heart, Lung, and Blood [place]: www.nhlbi.nih.gov Summary Body mass index (BMI) is a number that is calculated from a person's weight and height. BMI may help estimate how much of a person's weight is composed of fat. BMI can help identify those who may be at higher risk for certain medical problems. BMI can be measured using [place] measurements or metric measurements. BMI charts are used to identify whether you are underweight, normal weight, overweight, or obese. This information is not intended to replace advice given to you by your health care provider. Make sure you discuss any questions you have with your health care provider. Document Revised: 01/14/2020 Document Reviewed: 11/21/2019 [employer] Patient Education 2022 [employer]. Follow Up Care 07/23/2023 09:05:39 With:Teofilo BRANDT, TREVOR Jimenez Address: [address] [place] [id number]- When: Unknown [facility] History of Present illness Narrative 06-19-2023 Nakul Vaughan DO - 06/19/2023 8:10 AM EST Note Date & Type Note Facility 06-19-2023 History of Presen t illness Narrative Reason for Appointment: Patient ID: Racquel Yadav is a 27 y.o. female who presents for TELEHEALTH FOLLOW UP and Infertility Patient presents today via telephone call for a telehealth appointment. 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 [facility] Evaluation + Plan note Note Date & Type Note Facility Evaluation + Plan note No data available for this section [facility] Evaluation note Note Date & Type Note Facility Evaluation note Diagnosis Female infertility Female infertility of unspecified origin documented in this encounter [facility] Discharge instructions Note Date & Type Note Facility Hospital Discharge instructions No data available for this section [facility] Progress note Note Date & Type Note Facility Progress note No data available for this section [facility] Summary Purpose Family History [...] section and content) DATE CREATED AUTHOR 10/31/2017 [facility] DATE CREATED AUTHOR AUTHOR'S ORGANIZ ATION 06/10/2020 [employer] DATE CREATED AUTHOR AUTHOR'S ORGANIZ ATION [facility] Reason for Visit (unrecogniz ed section and content) Reason Comments TELEHEALTH FOLLOW UP Infertility Patient Care team informatio n (unrecognized section and content) Personnel Name: Dave Red MD Address: Address: [address] [place] [address] Personnel Name: Dave Red MD Address: Address: [address] [place] [address] Personnel Name: Dave Red MD Address: Address: [address] [place] [address] Personnel Name: Dave Red MD Address: Address: [address] [place] [address] FOR RECORDS PERTAINING TO PATIENTS WHO ARE [...] BE BASED ON THE PRIMARY CLINICAL RECORDS. [facility]. provides no warranty or guarantee of the accuracy or completeness of information in this document.
[2024-01-05 11:21] LABS: HCG Quantitative 250 mIU/mL
== END 2024-01-05 10:06 | disposition home or self-care (01) ==
LOC: LAB 10:07
PROVIDERS: Visit Provider Obstetrics & Gynecology
DX: N92.6 Irregular menstruation, unspecified (principal)
CPT/HCPCS: 36415; 84702

== ENCOUNTER 2024-01-31 13:36 | Outpatient (OUT) | payer SELFPAY ==
--- NOTE | 2024-01-31 13:38 | US_ITS ---
[address] [address] Patient Name: RACQUEL GRAHAM MRN: [id number] date: 1995 Sex: F Assigned Patient Location: [facility] Current Patient Location: Accession/Order Number: [id number] Exam Date: 01/31/2024 13:38 Report Date: 02/01/2024 04:28 At the request of: RORO YU Procedure: US OB transvaginal EXAMINATION: US OB transvaginal HISTORY: MISSED MENSES COMPARISON: No relevant comparison available. FINDINGS: GESTATIONAL SAC: Present and normal appearing. YOLK SAC: Present and normal appearing. POLE: Present and normal appearing. CARDIAC: Present. UTERUS: Normal size and appearance. OVARIES: Right: Normal. Left: Corpus lutein cyst. CERVIX: 3.7 cm in length and closed. CUL-DE-SAC: Normal. OTHER: None. AGE BY LMP: 8 weeks 2 days BINDU BY LMP: 09/09/2024 AGE BY US CRL: 8 weeks 0 days BINDU BY US CRL: 09/11/2024 US/US OB transvaginal IMPRESSION: 1. Single live intrauterine . Electronically authenticated by: KLARISSA JUÁREZ Date: 02/01/2024 04:28
--- OUTSIDE RECORDS SUMMARY | 2024-01-31 13:50 | XMS_ITS | CCD ---
Author Organization [facility] CliniSyne Care Team Providers Care Airfreight Loading Supervisor Name Role Phone PHYSICIAN, DEFAULT Unavailable Unavailable [...] Medication Allergies] Propensity to adverse reactions (disorder) [facility] Repository Medications Current Medications Medication Drug Class(es) Dates Sig (Normalized) Sig (Original) ibuprofen 600 mg oral tablet (2 sources) Nonsteroidal Anti-inflammator y Drug Start: 2 take 1 tablet by mouth every six hours ibuprofen 600 mg Tab 600 mg = 1 tab(s), Oral, q6hr, # 10 tab(s), Refills(s) 0, Pharmacy: [facility], 164, cm, 07/20/21 [...] Up with Teofilo BRANDT, Dave Rosen, [facility] When: Where: [place] [address]- Medications What When Instructions Unchanged letrozole (letrozole [...] water. ? Keep raw meats separate from asbqt-hj-mhk foods, such as fruits and vegetables. ? handbag framer, meat, poultry, and eggs to the (more content not included)... Normal [facility] Family Medicine Office/Clini c Noteon 11-15-2023 [...] with voice recognition software. Occasional wrong-word or ?ctxva-h-dihj? substitutions may have occurred due to the [...] of the extremity. She may also use ymzd-pdk-hrctbbm analgesics such as ibuprofen or Tylenol per package instructions for comfort. Declines need for work note today. 1. Hand pain, right (M79.641: Pain in right hand) Hand x-ray was negative. Patient encouraged to use rest, ice, compression and elevation for symptom management. As above can use eaoc-ekh-gmkpftz analgesics such as Tylenol or ibuprofen per [...] BRANDT, Dave Rosen, FAM [address] [place] [address]- Additional Instructions: Patient Education Healthy Eating Exercising to Lose Weight BMI for Adults How to Use Cold Therapy, Vuof-gt-Owrx Hand Pain Problem List/Past Medical History Ongoing [...] 09/20/2018 Employment/School Employed, Work/School description: Works at [employer]. Previous employment/school: Student. Activity level: Occasional physical work. Highest education level: Some college. Operates hazardous equipment: No., 09/20/2018 Exercise Exercise duration: 4. Exercise frequency: 5-6 times/week. Self assessment: Fair condition. Exercise type: Walking., (more content not included)... Normal [facility] Comment on above: Result Comment: Elec [...] mGy = . DAP = . Normal [facility] C Urineon 07-25-2023 Bacteria identified Cx [...] Locations R1: [facility] at: [facility], [address] [place] [address], [facility] , , [facility] Comment on above: Performed By: #### [id number] #### [facility] [address] [place] [address] Ambulatory Visit Summaryon 0 07-23-2023 Ambulatory Visit [...] Jimenez When: Where: [address] [place] [address]- Medications What When Instructions Unchanged letrozole (letrozole [...] keep your urine pale yellow. ? Take dubk-loe-oefymqr or prescription medicines. ? Eat foods that are high in fiber, such as beans, whole grains, and fresh fruits and vegetables. ? Limit foods that are high in fat and processed sugars, such as fried or sweet foods. General instructions ? Take lddn-mbf-zodoain and prescription medicines only as told by [...] muscles that help control urination. ? Take fbji-dou-vrmhxmq and prescripti (more content not included)... Normal [facility] Family Medicine Office/Clini c Noteon 07-23-2023 [...] denies Pt had progesterone at [facility], letrozole Pt is trying to get - has never ovulated- not sure if this is the pain she is feeling History of Present Illness I have reviewed and verified the staff HPI to be accurate for this encounter. Portions of this record have been created with voice recognition software. Occasional wrong-word or ?ualue-w-zbsl? substitutions may have occurred due to the inherent limitations of voice recognition software. 27-year-old female presents to [facility] today with chief complaint of [...] with this as she should contact her WOMEN DESIGNER Dr. Vaughan for further evaluation in which [...] of Est. Patient Straight Fwd 10-19 Min 45068 2. BMI 32.0-32.9,adult (Z68.32: Body mass index [BMI] 32.0-32.9, adult) The standard range for ages 18 and older is >=18.5 and < 25 kg/m2. Your BMI today was above this range, this falls in the overweight to obese category and there are medical benefits to weight loss. We can offer counselling, referral, a (more content not included)... Normal [facility] Comment on above: Result Comment: Elec [...] numbers. This can be done either in [place]e (U.S.) or metric measurements. Note that charts and online BMI calculators are available to help you find your BMI quickly and easily without having to do these calculations yourself. To calculate your BMI in [place]e (U.S.) measurements: 1. Measure your weight in [...] for Disease Control and Prevention: www.cdc.gov ? [place] Heart Association: www.heart.org ? National Heart, Lung, and Blood [place]: www.nhlbi.nih.gov Summary ? Body mass index (BMI) is a number that is calculated from a person's weight and height. ? BMI may help estimate how much of a person's weight is composed of fat. BMI can help identify those who may be at higher risk for certain medical problems. ? BMI can be measured using Gabonese measurements or metric measurements. ? BMI charts are used to identify whether you are underweight, normal weight, overweight, or obese. This information is not intended to replace advice given to you by your health care provider. Make sure you discuss any questions you have with your health care provider. Document Revised: 01/14/2020 Document Reviewed: 11/21/2019 RoomActually Patient Education ? 2022 [employer]. Urology Urinary Frequency, Adult Urinary frequency [...] at home: (more content not included)... Normal [facility] Provider Letteron 07-23-2023 Provider Letter (Inserted Image. Minerva ble to display) July 23, 2023 RACQUEL YADAV [address] [place] [address] : 1995 To Whom It May Concern, Please excuse above patient from work. Date of Illness: 07/23/2023 May Return to Work On:07/24/2023 Sincerely, [facility] [address] [place] [address], [place] [address] Normal [facility] WOMEN DESIGNER - Office Visiton WOMEN DESIGNER - Office Visit Diagnoses/Problems Assessed History of PCOS (polycystic ovarian syndrome) (256.4) (E28.2) Fertility testing (V26.21) (Z31.41) Screening for STD (sexually transmitted disease) (V74.5) (Z11.3) PCOS (polycystic ovarian syndrome) (256.4) (E28.2) Oligomenorrhea (626.1) (N91.5) Orders Anti Mullerian Hormone; Status:Active; Requested for:21Kif2204; 17-Hydroxyprogesterone, Serum; Status:Active; Requested for:20Cem1457; Antithyroid Perox. Ab; Status:Active; Requested for:62Zad2817; Complete Blood Count; Status:Active; Requested for:72Irb9153; DHEA Sulfate, Serum; Status:Active; Requested for:51Llu6342; GC + Chlamydia By Amplified Detection; Status:Active; Requested for:86Zud5266; HCG, Beta Quantitative; Status:Active; Requested for:72Vjm3728; Hemoglobin A1C; Status:Active; Requested for:66Cvs9254; Hepatitis B Surface Antigen; Status:Active; Requested for:09Jun2020; [...] Blood type [ ] Genetic Screen with [facility] - will consider [x ] Take vitamins, vitamin D [x ] Return to see me after workup complete to discuss management plan [x ] Education: New infertility packet to be mailed to patient [x ] Engaged MD albin Johnson MD [facility] [phone] [place] [phone] [place] Provider Impressions 24 year old with oligomenorrhea, [...] Blood type [ ] Genetic Screen with [facility] - will consider [x ] Take vitamins, vitamin D [x ] Return to see me after workup complete to discuss management plan [x ] Education: New infertility packet to be mailed to patient [x ] Engaged MD albin Johnson MD [facility] [phone] [place] [phone] [place] Appointment Duration:. 45 minutes; greater than half [...] trying for 4 years. History of Present Ucpfuti7706/09/2020 11:15AM RACQUEL VAZQUEZ , 24 year is contacted for an (audio-visual, or audio only) Telehealth visit. Today's visit was provided through telemedicine conferencing: Using [employer] platform. Consent: The concept of telemedicine? 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 Prior established pregnancies: No Toxic habits: Occasional [...] Recorded: 09Jun2020 11:02AM Height5 ft 5 in Ngfhzo026 lb BMI Wduvfdjvcv00.46 BSA Calculated1.82 Tobacco Useb) No Fall Screeninga) No falls within the last year [id number] Gravida0 Para0 Pain Scale0 Physical Exam This is a telehealth appointment Signatures Electronically signed by : Rayshawn Johnson MD; Jun 09 2020 11:52AM EST (Author) Normal [facility] HUMERUS LEFTon 12-01-2016 [facility] [place] [address] ==Patient Name: RACQUEL VAZQUEZ : 1995Sex: FAge: Race: WhiteMRN: [id number]. Location: 84Patient Status: Date: 12/01/2016 4:25:00 PMCompleted Date: 12/01/2016 04:28 PMRequesting Provider: CARI GOOD Attending Provider: Report Copy To: Signs & Symptoms: S42.352D Displ commnt fx shaft of humer, l arm, 7thD X30Avaxkmw: AthenaComments: , , Views (X-RAY, HUMERUS): AP, Lateral , Weight Bearing?: Y , With or Without Brace/Cast/Collar: Without , With Magnification Marker?: N , , , Ordering Provider - CARI GOOD MD , Rendering Provider - CARI GOOD MD , Exam: HUMERUS LEFTAccession #: [id number] =========HUMERUS LEFT 12/01/2016 4:28 PM EDT SIGNS [...] Electronically signed by:Subhash Campos M.D.. Transcribed by: [id number], User Resident: Electronically Signed by: SUBHASH CAMPOS @ 12/01/2016 04:35 PM Normal [facility] Comment on above: Order Comment: , , V iews (X-RAY, HUMERUS): AP, Lateral , Weight Bearing?: Y , With or Without Brace/Cast/Collar: Without , With Magnification Marker?: N , , , Ordering Provider - CARI GOOD MD , Rendering Provider Gloria GOOD MD , Vital Signs Date Time Vital Sign Value Performing Clinician Facility 11-15-2023 12:56-0400 Blood Pressure Location Barby Pastrana [facility] 11-15-2023 12:56-0400 Body temperature 98.06 [degF] Barby Pastrana [facility] 11-15-2023 12:56-0400 Diastolic blood pressure 82 mm[Hg] Barby Peraltaer [facility] 11-15-2023 12:56-0400 Heart rate 82 /min Barby Peraltaer [facility] 11-15-2023 12:56-0400 Respiratory rate 18 /min Barby Pastrana [facility] 11-15-2023 12:56-0400 SaO2% (BldA) [Mass fraction] 99 % Barby Pastrana [facility] 11-15-2023 12:56-0400 Systolic blood pressure 120 mm[Hg] Barby Peraltaer [facility] 07-23-2023 10:31-0400 Blood Pressure Location Cristi Les [facility] 07-23-2023 10:31-0400 Body temperature 98.24 [degF] Cristi Les [facility] 07-23-2023 10:31-0400 Diastolic blood pressure 74 mm[Hg] Cristi Saldana [facility] 07-23-2023 10:31-0400 Heart rate 81 /min Cristi Saldana [facility] 07-23-2023 10:31-0400 SaO2% (BldA) [Mass fraction] 97 % Cristi Saldana [facility] 07-23-2023 10:31-0400 Systolic blood pressure 118 mm[Hg] Cristi Saldana [facility] 07-29-2021 18:50-0400 Body temperature 96.98 [degF] Mark Moffett [facility] 07-29-2021 18:50-0400 Diastolic blood pressure 58 mm[Hg] Mark Moffett [facility] 07-29-2021 18:50-0400 Heart rate 70 /min Mark Moffett [facility] 07-29-2021 18:50-0400 Respiratory rate 12 /min Mark Moffett [facility] 07-29-2021 18:50-0400 SaO2% (BldA) [Mass fraction] 99 % Mark Moffett [facility] 07-29-2021 18:50-0400 Systolic blood pressure 100 mm[Hg] Mark Moffett [facility] 07-29-2021 17:50-0400 Body temperature 97.52 [degF] Mark Moffett [facility] 07-29-2021 17:50-0400 Diastolic blood pressure 60 mm[Hg] Mark Moffett [facility] 07-29-2021 17:50-0400 Heart rate 70 /min Mark Moffett [facility] 07-29-2021 17:50-0400 Respiratory rate 12 /min Mark Moffett [facility] 07-29-2021 17:50-0400 SaO2% (BldA) [Mass fraction] 99 % Mark Moffett [facility] 07-29-2021 17:50-0400 Systolic blood pressure 110 mm[Hg] Mark Moffett [facility] 07-29-2021 17:49-0400 Body temperature 97.52 [degF] Mark Moffett [facility] 07-29-2021 17:49-0400 Diastolic blood pressure 79 mm[Hg] Mark Moffett [facility] 07-29-2021 17:49-0400 Heart rate 69 /min Mark Moffett [facility] 07-29-2021 17:49-0400 Respiratory rate 12 /min Mark Moffett [facility] 07-29-2021 17:49-0400 SaO2% (BldA) [Mass fraction] 99 % Mark Moffett [facility] 07-29-2021 17:49-0400 Systolic blood pressure 113 mm[Hg] Mark Moffett [facility] 07-29-2021 17:10-0400 Respiratory rate 24 /min Mark Moffett [facility] 07-29-2021 17:05-0400 Respiratory rate 24 /min Mark Moffett [facility] 07-29-2021 17:00-0400 Respiratory rate 27 /min aMrk Moffett [facility] 07-29-2021 14:40-0400 Heart rate 72 /min Mark Moffett [facility] 07-29-2021 14:37-0400 Blood Pressure Location Mark Moffett [facility] 07-29-2021 14:37-0400 Mean blood pressure 93 mm[Hg] Mark Moffett [facility] 07-29-2021 14:37-0400 Blood Pressure Location Mark Moffett [facility] 07-29-2021 14:37-0400 Body temperature 98.24 [degF] Mark Moffett [facility] 07-29-2021 14:37-0400 BP/Pulse Patient Position Mark Moffett [facility] 07-29-2021 14:37-0400 Mean blood pressure 91 mm[Hg] Mark Zuhair [facility] Encounters Encounter Date Encounter Type Care Provider Facility Start: 11-15-2023 End: 11-15-2023 ambulatory Barby Pastrana [facility] Start: 11-15-2023 End: 11-15-2023 Patient encounter procedure Barby Pastrana [facility] Start: 07-23-2023 End: 07-23-2023 Lab Drop off Cristi Saldana [facility] Start: 07-23-2023 End: 07-23-2023 ambulatory Cristi Saldana [facility] Start: 07-23-2023 End: 07-23-2023 Patient encounter procedure Cristi Saldana [facility] Start: 06-19-2023 End: 06-19-2023 Phys/qhp telephone evaluation 5-10 min Nakul Vaughan DO Work Phone: [facility] Comment on above: Female infertility Start: 09-21-2021 End: 09-21-2021 Lab Drop off Steph Brady [facility] Start: 07-29-2021 End: 07-29-2021 Admission to same day surgery center Mark Rosen Zuhair [facility] Start: 12-01-2016 End: 12-02-2016 Ambulatory VITHAL SHENDGE Facility:[facility] Start: 11-01-2016 End: 11-02-2016 Ambulatory DEFAULT PHYSICIAN Facility:[facility] Procedures Date Procedure Procedure Detail Performing Clinician Start: 09-15-2016 left humerus ORIF Mark Zuhair Appendectomy Mark Moffett Payers Date Payer Category Payer Unknown [id number] 1995 Unknown [id number] 1995 Unknown [id number] 1995 Unknown [id number] 1995 Unknown [id number] Unknown [id number] Unknown Social History Date Type Detail Facility Start: 12-14-2020 End: 11-15-2023 Tobacco smoking status Never smoked tobacco (finding) [facility] Comment on above: patient denies Tobacco smoking status Never [facility] Comment on above: patient denies Sex Assigned At Female [facility] Tobacco smoking stat us CTIS Tobacco smoking consumption unknown [facility] Start: 1995 Sex Assigned At Female [facility] Start: 01-09-2023 Gender identity Identifies as female gender (finding) [facility] Start: 01-09-2023 Sexual orientation Heterosexual (fin ding) [facility] Healthcare Functional Status Date Assessment Result Facility 11-15-2023 Functional Status N/A [facility] 07-23-2023 Functional Status N/A [facility] Discharge instructions [...] soapy water. ?Keep raw meats separate from wsfzr-bi-hte foods, such as fruits and vegetables. ?handbag framer, meat, poultry, and eggs to the recommended [...] include 1 slice of bread, 1 cup nnbsd-nl-hkx cereal, 3 cups popcorn, or cup cooked [...] provider. Document Revised: 12/20/2021 Document Reviewed: 12/20/2021 RoomActually Patient Education 2022 [employer]. 11/15/2023 13:24:01 Exercising to Lose Weight Exercising [...] your health care provider or diet and clinical rehab specialist (dietitian). This may include: ?Eating fewer [...] provider. Document Revised: 06/19/2021 Document Reviewed: 06/19/2021 [employer]Actually Patient Education 2022 [employer]. 11/15/2023 13:23:59 BMI for Adults BMI for [...] numbers. This can be done either in [place]e (U.S.) or metric measurements. Note that charts and online BMI calculators are available to help you find your BMI quickly and easily without having to do these calculations yourself. To calculate your BMI in [place]e (U.S.) measurements: 1.Measure your weight in pounds [...] Centers for Disease Control and Prevention: www.cdc.gov [place] Heart Association: www.heart.org National Heart, Lung, and Blood [place]: www.nhlbi.nih.gov Summary Body mass index (BMI) is a number that is calculated from a person's weight and height. BMI may help estimate how much of a person's weight is composed of fat. BMI can help identify those who may be at higher risk for certain medical problems. BMI can be measured using Gabonese measurements or metric measurements. BMI charts are used to identify whether you are underweight, normal weight, overweight, or obese. This information is not intended to replace advice given to you by your health care provider. Make sure you discuss any questions you have with your health care provider. Document Revised: 01/14/2020 Document Reviewed: 11/21/2019 RoomActually Patient Education 2022 [employer]. 11/15/2023 13:23:56 How to Use Cold Therapy, Krkj-cn-Ijwx How to Use Cold Therapy Cold therapy, [...] provider. Document Revised: 03/09/2021 Document Reviewed: 03/09/2021 [employer]Actually Patient Education 2022 [employer] Inc. 11/15/2023 13:23:47 Hand Pain Hand Pain [...] discomfort: Managing pain, stiffness, and swelling Take xaio-oxo-kikbkti and prescription medicines only as told by [...] provider. Document Revised: 08/10/2022 Document Reviewed: 08/11/2021 [employer]Actually Patient Education 2022 [employer]. Follow Up Care 11/15/2023 10:03:53 With:Teofilo BRANDT, Dave Rosen, TREVOR Address: [address] [place] [address]- When: Unknown [facility] Clinical Note 11-15-2023 Note [...] water. ? Keep raw meats separate from akzml-vp-tug foods, such as fruits and vegetables. ? handbag framer, meat, poultry, and eggs to the recommended [...] include 1 slice of bread, 1 cup voxxb-dc-sfr cereal, 3 cups popcorn, or ? cup [...] about 5 teas (more content not included)... [facility] Evaluation + Plan note 07-23-2023 Note Date & Type Note Facility 07-23-2023 Evaluation + Plan note Diagnostic Tests PendingUrine Culture 07/23/23 [facility] Discharge instructions 07-23-2023 Note Date & [...] to keep your urine pale yellow. ?Take jmkg-gbi-vuluzic or prescription medicines. ?Eat foods that are high in fiber, such as beans, whole grains, and fresh fruits and vegetables. ?Limit foods that are high in fat and processed sugars, such as fried or sweet foods. General instructions Take fjom-mof-zmbrezc and prescription medicines only as told by [...] the muscles that help control urination. Take imjs-mcy-wnetlwh and prescription medicines only as told by your health care provider. Contact a health care provider if your symptoms do not improve or get worse. This information is not intended to replace advice given to you by your health care provider. Make sure you discuss any questions you have with your health care provider. Document Revised: 11/26/2020 Document Reviewed: 11/26/2020 RoomActually Patient Education 2022 [employer]. 07/23/2023 10:36:54 BMI for Adults BMI for [...] numbers. This can be done either in [place]onese (U.S.) or metric measurements. Note that charts and online BMI calculators are available to help you find your BMI quickly and easily without having to do these calculations yourself. To calculate your BMI in [place] (U.S.) measurements: 1.Measure your weight in pounds [...] Centers for Disease Control and Prevention: www.cdc.gov [place] Heart Association: www.heart.org National Heart, Lung, and Blood [place]: www.nhlbi.nih.gov Summary Body mass index (BMI) is a number that is calculated from a person's weight and height. BMI may help estimate how much of a person's weight is composed of fat. BMI can help identify those who may be at higher risk for certain medical problems. BMI can be measured using Gabonese measurements or metric measurements. BMI charts are used to identify whether you are underweight, normal weight, overweight, or obese. This information is not intended to replace advice given to you by your health care provider. Make sure you discuss any questions you have with your health care provider. Document Revised: 01/14/2020 Document Reviewed: 11/21/2019 RoomActually Patient Education 2022 [employer]. Follow Up Care 07/23/2023 09:05:39 With:Teofilo BRANDT, TREVOR Jimenez Address: [address] [place] [address]- When: Unknown [facility] History of Present illness Narrative 06-19-2023 Nakul Vaughan DO - 06/19/2023 8:10 AM EST Note Date & Type Note Facility 06-19-2023 History of Presen t illness Narrative Reason for Appointment: Patient ID: Racquel Yadav is a 27 y.o. female who presents for TELEHEALTH FOLLOW UP and Infertility Patient presents today via telephone call for a telehealth appointment. Patients Phone #: [phone] (mobile) Current Medications: has a current medication [...] DO documented in this encounter [facility] Discharge instructions 07-29-2021 Note Date & Type Note Facility 07-29-2021 Hospital Discharg e instructions Patient Education 07/29/2021 17:20:52 EMERGENCY VETERINARY ASSISTANT - Post D&C, Hysteroscopy, LEEP or Essure/Laparoscopy [...] Up Care 07/12/2021 14:08:06 With:Mark Moffett Address: [address] [place], [place] [id number]- [facility] [place] ([place]) When:2 weeks Comments:Call for any problems. [facility] Evaluation + Plan note Note Date & Type Note Facility Evaluation + Plan note No data available for this section [facility] Evaluation note Note Date & Type Note Facility Evaluation note Diagnosis Female infertility Female infertility of unspecified origin documented in this encounter [facility] Discharge instructions Note Date & Type Note Facility Hospital Discharge instructions No data available for this section [facility] Progress note Note Date & Type Note Facility Progress note No data available for this section [facility] Summary Purpose Family History [...] section and content) DATE CREATED AUTHOR 10/31/2017 [facility] DATE CREATED AUTHOR AUTHOR'S ORGANIZ ATION 06/10/2020 [email or web address] DATE CREATED AUTHOR AUTHOR'S ORGANIZ ATION 11/21/2023 [facility] Reason for Visit (unrecogniz ed section and content) Reason Comments TELEHEALTH FOLLOW UP Infertility Patient Care team informatio n (unrecognized section and content) Personnel Name: Dave Red MD Address: Address: [address] [place] [address] Personnel Name: Dave Red MD Address: Address: [address] [place] [address] Personnel Name: Dave Red MD Address: Address: [address] [place] [address] Personnel Name: Dave Red MD Address: Address: [address] [place] [address] FOR RECORDS PERTAINING TO PATIENTS WHO ARE [...] BE BASED ON THE PRIMARY CLINICAL RECORDS. [employer] [facility]. provides no warranty or guarantee of the accuracy or completeness of information in this document.
== END 2024-01-31 13:37 | disposition home or self-care (01) ==
LOC: NOMS 13:36
PROVIDERS: Visit Provider Obstetrics & Gynecology
DX: Z34.91 Encounter for supervision of normal pregnancy, unspecified, first trimester (principal); Z3A.08 8 weeks gestation of pregnancy; N92.6 Irregular menstruation, unspecified
CPT/HCPCS: 76817

== ENCOUNTER 2024-02-12 16:10 | Outpatient (OUT) | payer SELFPAY ==
--- OUTSIDE RECORDS SUMMARY | 2024-02-12 16:15 | XMS_ITS | CCD ---
Author Organization [facility]iniSymt Care Team Providers Care Ironworker Wire Fence Erector Name Role Phone PHYSICIAN, DEFAULT Unavailable Unavailable PHYSICIAN, DEFAULT Unavailable Unavailable SHENDGE, VITHAL Unavailable Unavailable SHENDGE, VITHAL Unavailable Unavailable SELF, REFERRED Unavailable Unavailable SELF, REFERRED Unavailable Unavailable Dave Red Primary Care Physician [phone] Unavailable Primary Care Provider Unavailcole e Cristi Saldana Attending Unavailable Cristi Saldana Admitting Unavailable Cristi Saldana Attending Unavailable Barby Pastrana Attending Unavailable Barby Pastrana Admitting Unavailable Barby Pastrana Attending Unavailable Allergies Allergy Classification Reported Allergen(s) Allergy Type Date of Onset Reaction(s) Facility (1 source) No Known Medication Allergies; Translations: [No Known Medication Allergies] Propensity to adverse reactions (disorder) [facility] Repository Medications Current Medications Medication Drug Class(es) Dates Sig (Normalized) Sig (Original) ibuprofen 600 mg oral tablet (2 sources) Nonsteroidal Anti-inflammator y Drug Start: 2 take 1 tablet by mouth every six hours ibuprofen 600 mg Tab 600 mg = 1 tab(s), Oral, q6hr, # 10 tab(s), Refills(s) 0, Pharmacy: [facility], 164, cm, 07/20/21 [...] Follow Up with Teofilo BRANDT, Dave Rosen, [facility] When: Where: [place] [address]- Medications What When Instructions Unchanged letrozole (letrozole [...] water. ? Keep raw meats separate from ugamr-mr-sfd foods, such as fruits and vegetables. ? issuing operator, meat, poultry, and eggs to the (more content not included)... Normal [facility] Family Medicine Office/Clini c Noteon 11-15-2023 Family [...] with voice recognition software. Occasional wrong-word or ?suewz-y-zgjb? substitutions may have occurred due to the [...] of the extremity. She may also use jjzk-nqn-hqgpvzw analgesics such as ibuprofen or Tylenol per package instructions for comfort. Declines need for work note today. 1. Hand pain, right (M79.641: Pain in right hand) Hand x-ray was negative. Patient encouraged to use rest, ice, compression and elevation for symptom management. As above can use drdn-zup-xhnokrp analgesics such as Tylenol or ibuprofen per [...] BRANDT, Dave Rosen, FAM [address] [place] [address]- Additional Instructions: Patient Education Healthy Eating Exercising to Lose Weight BMI for Adults How to Use Cold Therapy, Wujm-pi-Wqwg Hand Pain Problem List/Past Medical History Ongoing [...] 09/20/2018 Employment/School Employed, Work/School description: Works at [employer]. Previous employment/school: Student. Activity level: Occasional physical work. Highest education level: Some college. Operates hazardous equipment: No., 09/20/2018 Exercise Exercise duration: 4. Exercise frequency: 5-6 times/week. Self assessment: Fair condition. Exercise type: Walking., (more content not included)... Normal [facility] Comment on above: Result Comment: Elec [...] mGy = . DAP = . Normal [facility] C Urineon 07-25-2023 Bacteria identified Cx Nom [...] Locations R1: [facility] at: [facility], [address] [place] [address], [facility] , , [facility] Comment on above: Performed By: #### 2 [id number] #### [facility] [address] [place] [address] Ambulatory Visit Summaryon 0 07-23-2023 Ambulatory Visit [...] Jimenez When: Where: [address] [place] [address]- Medications What When Instructions Unchanged letrozole (letrozole [...] keep your urine pale yellow. ? Take awby-blk-agwnhqs or prescription medicines. ? Eat foods that are high in fiber, such as beans, whole grains, and fresh fruits and vegetables. ? Limit foods that are high in fat and processed sugars, such as fried or sweet foods. General instructions ? Take fyag-txu-kmxprmz and prescription medicines only as told by [...] muscles that help control urination. ? Take mqgc-cdc-crszzyn and prescripti (more content not included)... Normal [facility] Family Medicine Office/Clini c Noteon 07-23-2023 [...] denies Pt had progesterone at [facility] of [facility], letrozole Pt is trying to get - has never ovulated- not sure if this is the pain she is feeling History of Present Illness I have reviewed and verified the staff HPI to be accurate for this encounter. Portions of this record have been created with voice recognition software. Occasional wrong-word or ?cislp-d-pcoz? substitutions may have occurred due to the inherent limitations of voice recognition software. 27-year-old female presents to [facility] today with chief complaint of possible [...] with this as she should contact her CURVE SAW OPERATOR Dr. Vaughan for further evaluation in which [...] of Est. Patient Straight Fwd 10-19 Min 38195 2. BMI 32.0-32.9,adult (Z68.32: Body mass index [BMI] 32.0-32.9, adult) The standard range for ages 18 and older is >=18.5 and < 25 kg/m2. Your BMI today was above this range, this falls in the overweight to obese category and there are medical benefits to weight loss. We can offer counselling, referral, a (more content not included)... Normal [facility] Comment on above: Result Comment: Elec [...] numbers. This can be done either in [place] (U.[place] or metric measurements. Note that charts and online BMI calculators are available to help you find your BMI quickly and easily without having to do these calculations yourself. To calculate your BMI in [place] (U.S.) measurements: 1. Measure your weight in [...] for Disease Control and Prevention: www.cdc.gov ? [place] Heart Association: www.heart.org ? National Heart, Lung, and Blood [place]: www.nhlbi.nih.gov Summary ? Body mass index (BMI) is a number that is calculated from a person's weight and height. ? BMI may help estimate how much of a person's weight is composed of fat. BMI can help identify those who may be at higher risk for certain medical problems. ? BMI can be measured using [place] measurements or metric measurements. ? BMI charts are used to identify whether you are underweight, normal weight, overweight, or obese. This information is not intended to replace advice given to you by your health care provider. Make sure you discuss any questions you have with your health care provider. Document Revised: 01/14/2020 Document Reviewed: 11/21/2019 [employer] Patient Education ? 2022 [employer] Urology Urinary Frequency, Adult Urinary frequency [...] at home: (more content not included)... Normal [facility] Provider Letteron 07-23-2023 Provider Letter (Inserted Image. Minerva ble to display) July 23, 2023 RACUQEL YADAV [address] [place] [address] : 1995 To Whom It May Concern, Please excuse above patient from work. Date of Illness: 07/23/2023 May Return to Work On:07/24/2023 Sincerely, [facility] [address] [place] [address], [place] [address] Normal [facility] CURVE SAW OPERATOR - Office Visiton CURVE SAW OPERATOR - Office Visit Diagnoses/Problems Assessed History of PCOS (polycystic ovarian syndrome) (256.4) (E28.2) Fertility testing (V26.21) (Z31.41) Screening for STD (sexually transmitted disease) (V74.5) (Z11.3) PCOS (polycystic ovarian syndrome) (256.4) (E28.2) Oligomenorrhea (626.1) (N91.5) Orders Anti Mullerian Hormone; Status:Active; Requested for:59Mtq9901; 17-Hydroxyprogesterone, Serum; Status:Active; Requested for:41Vgx2039; Antithyroid Perox. Ab; Status:Active; Requested for:53Fwo5559; Complete Blood Count; Status:Active; Requested for:07Rsl5002; DHEA Sulfate, Serum; Status:Active; Requested for:71Ksc4984; GC + Chlamydia By Amplified Detection; Status:Active; Requested for:45Hbg0953; HCG, Beta Quantitative; Status:Active; Requested for:37Ruv8625; Hemoglobin A1C; Status:Active; Requested for:25Aei5358; Hepatitis B Surface Antigen; Status:Active; Requested for:09Jun2020; [...] Blood type [ ] Genetic Screen with [facility] [employer] [place] - will consider [x ] Take vitamins, vitamin D [x ] Return to see me after workup complete to discuss management plan [x ] Education: New infertility packet to be mailed to patient [x ] Engaged MD albin Johnson MD [facility] [phone] [place] [phone] [place] Provider Impressions 24 year old with oligomenorrhea, [...] Blood type [ ] Genetic Screen with [facility] [place] - will consider [x ] Take vitamins, vitamin D [x ] Return to see me after workup complete to discuss management plan [x ] Education: New infertility packet to be mailed to patient [x ] Engaged MD albin Johnson MD [facility] [phone] [place] [phone] [place] Appointment Duration:. 45 minutes; greater than half [...] trying for 4 years. History of Present Abjujyp9506/09/2020 11:15AM RACQUEL VAZQUEZ , 24 year is contacted for an (audio-visual, or audio only) Telehealth visit. Today's visit was provided through telemedicine conferencing: Using [employer] platform. Consent: The concept of telemedicine? 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 Prior established pregnancies: No Toxic habits: Occasional [...] Recorded: 09Jun2020 11:02AM Height5 ft 5 in Qqfasc811 lb BMI Mjxuxfmbzf72.46 BSA Calculated1.82 Tobacco Useb) No Fall Screeninga) No falls within the last year [id number] Gravida0 Para0 Pain Scale0 Physical Exam This is a telehealth appointment Signatures Electronically signed by : Rayshawn Johnson MD; Jun 09 2020 11:52AM EST (Author) Normal [facility] HUMERUS LEFTon 12-01-2016 [facility]UM[facility]US LEFT [facility] [address] [place] [address] ==Patient Name: RACQUEL VAZQUEZ : 1995Sex: FAge: Race: WhiteMRN: [id number]. Location: 84Patient Status: Date: 12/01/2016 4:25:00 PMCompleted Date: 12/01/2016 04:28 PMRequesting Provider: CARI GOOD Attending Provider: Report Copy To: Signs & Symptoms: S42.352D Displ commnt fx shaft of humer, l arm, 7thD R34Fmocyhd: AthenaComments: , , Views (X-RAY, HUMERUS): AP, Lateral , Weight Bearing?: Y , With or Without Brace/Cast/Collar: Without , With Magnification Marker?: N , , , Ordering Provider - CARI GOOD MD , Rendering Provider - CARI GOOD MD , Exam: HUMERUS LEFTAccession #: [id number] =========HUMERUS LEFT 12/01/2016 4:28 PM EDT SIGNS [...] Electronically signed by:Subhash Campos M.D.. Transcribed by: [email or web address], User Resident: Electronically Signed by: SUBHASH CAMPOS @ 12/01/2016 04:35 PM Normal [facility] Comment on above: Order Comment: , , V iews (X-RAY, HUMERUS): AP, Lateral , Weight Bearing?: Y , With or Without Brace/Cast/Collar: Without , With Magnification Marker?: N , , , Ordering Provider - CARI GOOD MD , Rendering Provider Gloria GOOD MD , Vital Signs Date Time Vital Sign Value Performing Clinician Facility 11-15-2023 12:56-0400 Blood Pressure Location Barby Pastrana [facility] 11-15-2023 12:56-0400 Body temperature 98.06 [degF] Barby Pastrana [facility] 11-15-2023 12:56-0400 Diastolic blood pressure 82 mm[Hg] Barby Peraltaer [facility] 11-15-2023 12:56-0400 Heart rate 82 /min Barby Peraltaer [facility] 11-15-2023 12:56-0400 Respiratory rate 18 /min Barby Pastrana [facility] 11-15-2023 12:56-0400 SaO2% (BldA) [Mass fraction] 99 % Barby Pastrana [facility] 11-15-2023 12:56-0400 Systolic blood pressure 120 mm[Hg] Barby Peraltaer [facility] 07-23-2023 10:31-0400 Blood Pressure Location Cristi Les [facility] 07-23-2023 10:31-0400 Body temperature 98.24 [degF] Cristi Les [facility] 07-23-2023 10:31-0400 Diastolic blood pressure 74 mm[Hg] Cristi Saldana [facility] 07-23-2023 10:31-0400 Heart rate 81 /min Cristi Saldana [facility] 07-23-2023 10:31-0400 SaO2% (BldA) [Mass fraction] 97 % Cristi Saldana [facility] 07-23-2023 10:31-0400 Systolic blood pressure 118 mm[Hg] Cristi Saldana [facility] 07-29-2021 18:50-0400 Body temperature 96.98 [degF] Mark Moffett [facility] 07-29-2021 18:50-0400 Diastolic blood pressure 58 mm[Hg] Mark Moffett [facility] 07-29-2021 18:50-0400 Heart rate 70 /min Mark Moffett [facility] 07-29-2021 18:50-0400 Respiratory rate 12 /min Mark Moffett [facility] 07-29-2021 18:50-0400 SaO2% (BldA) [Mass fraction] 99 % Mark Moffett [facility] 07-29-2021 18:50-0400 Systolic blood pressure 100 mm[Hg] Mark Moffett [facility] 07-29-2021 17:50-0400 Body temperature 97.52 [degF] Mark Moffett [facility] 07-29-2021 17:50-0400 Diastolic blood pressure 60 mm[Hg] Mark Moffett [facility] 07-29-2021 17:50-0400 Heart rate 70 /min Mark Moffett [facility] 07-29-2021 17:50-0400 Respiratory rate 12 /min Mark Moffett [facility] 07-29-2021 17:50-0400 SaO2% (BldA) [Mass fraction] 99 % Mark Moffett [facility] 07-29-2021 17:50-0400 Systolic blood pressure 110 mm[Hg] Mark Moffett [facility] 07-29-2021 17:49-0400 Body temperature 97.52 [degF] Mark Moffett [facility] 07-29-2021 17:49-0400 Diastolic blood pressure 79 mm[Hg] Mark Moffett [facility] 07-29-2021 17:49-0400 Heart rate 69 /min Mark Moffett [facility] 07-29-2021 17:49-0400 Respiratory rate 12 /min Mark Moffett [facility] 07-29-2021 17:49-0400 SaO2% (BldA) [Mass fraction] 99 % Mark Moffett [facility] 07-29-2021 17:49-0400 Systolic blood pressure 113 mm[Hg] Mark Moffett [facility] 07-29-2021 17:10-0400 Respiratory rate 24 /min Mark Moffett [facility] 07-29-2021 17:05-0400 Respiratory rate 24 /min Mark Moffett [facility] 07-29-2021 17:00-0400 Respiratory rate 27 /min Mark Moffett [facility] 07-29-2021 14:40-0400 Heart rate 72 /min Mark Moffett [facility] 07-29-2021 14:37-0400 Blood Pressure Location Mark Moffett [facility] 07-29-2021 14:37-0400 Mean blood pressure 93 mm[Hg] Mark Moffett [facility] 07-29-2021 14:37-0400 Blood Pressure Location Mark Moffett [facility] 07-29-2021 14:37-0400 Body temperature 98.24 [degF] Mark Moffett [facility] 07-29-2021 14:37-0400 BP/Pulse Patient Position Mark Moffett [facility] 07-29-2021 14:37-0400 Mean blood pressure 91 mm[Hg] Mark Zuhair [facility] Encounters Encounter Date Encounter Type Care Provider Facility Start: 11-15-2023 End: 11-15-2023 ambulatory Barby Pastrana Facility:[facility] Start: 11-15-2023 End: 11-15-2023 Patient encounter procedure Barby Pastrana [facility] Start: 07-23-2023 End: 07-23-2023 Lab Drop off Cristi Saldana [facility] Start: 07-23-2023 End: 07-23-2023 ambulatory Cristi Saldana Facility:[facility] Start: 07-23-2023 End: 07-23-2023 Patient encounter procedure Cristi Saldana [facility] Start: 06-19-2023 End: 06-19-2023 Phys/qhp telephone evaluation 5-10 min Nakul Vaughan DO Work Phone: [facility] Comment on above: Female infertility Start: 09-21-2021 End: 09-21-2021 Lab Drop off Steph Brady [facility] Start: 07-29-2021 End: 07-29-2021 Admission to same day surgery center Mark Rosen Zuhair [facility] Start: 12-01-2016 End: 12-02-2016 Ambulatory VITHAL SHENDGE Facility:[facility] Start: 11-01-2016 End: 11-02-2016 Ambulatory DEFAULT PHYSICIAN Facility:[facility] Procedures Date Procedure Procedure Detail Performing Clinician Start: 09-15-2016 left humerus ORIF Mark Zuhair Appendectomy Mark Moffett Payers Date Payer Category Payer Unknown [id number] 1995 Unknown [id number] 1995 Unknown [id number] 1995 Unknown [id number] 1995 Unknown [id number] Unknown [id number] Unknown Social History Date Type Detail Facility Start: 12-14-2020 End: 11-15-2023 Tobacco smoking status Never smoked tobacco (finding) [facility] Comment on above: patient denies Tobacco smoking status Never [facility] Comment on above: patient denies Sex Assigned At Female [facility] Tobacco smoking stat us GAIS Tobacco smoking consumption unknown [facility] Start: 1995 Sex Assigned At Female [facility] Start: 01-09-2023 Gender identity Identifies as female gender (finding) [facility] Start: 01-09-2023 Sexual orientation Heterosexual (fin ding) [facility] Functional Status Date Assessment Result Facility 11-15-2023 Functional Status N/A [facility] 07-23-2023 Functional Status N/A [facility] Discharge instructions 11-15-2023 [...] soapy water. ?Keep raw meats separate from vzdup-dy-zqg foods, such as fruits and vegetables. ?issuing operator, meat, poultry, and eggs to the recommended [...] include 1 slice of bread, 1 cup ezxwu-yt-pmw cereal, 3 cups popcorn, or cup cooked [...] provider. Document Revised: 12/20/2021 Document Reviewed: 12/20/2021 [employer] Patient Education 2022 [employer]. 11/15/2023 13:24:01 Exercising to Lose Weight Exercising [...] your health care provider or diet and software product specialist (dietitian). This may include: ?Eating fewer [...] provider. Document Revised: 06/19/2021 Document Reviewed: 06/19/2021 [employer] Patient Education 2022 [employer]. 11/15/2023 13:23:59 BMI for Adults BMI for [...] numbers. This can be done either in [place] or metric measurements. Note that charts and online BMI calculators are available to help you find your BMI quickly and easily without having to do these calculations yourself. To calculate your BMI in [place] ([place] measurements: 1.Measure your weight in pounds [...] Centers for Disease Control and Prevention: www.cdc.gov [place] Heart Association: www.heart.org National Heart, Lung, and Blood [place]: www.nhlbi.nih.gov Summary Body mass index (BMI) is a number that is calculated from a person's weight and height. BMI may help estimate how much of a person's weight is composed of fat. BMI can help identify those who may be at higher risk for certain medical problems. BMI can be measured using [place] measurements or metric measurements. BMI charts are used to identify whether you are underweight, normal weight, overweight, or obese. This information is not intended to replace advice given to you by your health care provider. Make sure you discuss any questions you have with your health care provider. Document Revised: 01/14/2020 Document Reviewed: 11/21/2019 [employer] Patient Education 2022 [employer]. 11/15/2023 13:23:56 How to Use Cold Therapy, Prcx-cz-Dqkp How to Use Cold Therapy Cold therapy, [...] provider. Document Revised: 03/09/2021 Document Reviewed: 03/09/2021 [employer] Patient Education 2022 [employer] 11/15/2023 13:23:47 Hand Pain Hand Pain [...] discomfort: Managing pain, stiffness, and swelling Take kiep-mov-vaeblpr and prescription medicines only as told by [...] provider. Document Revised: 08/10/2022 Document Reviewed: 08/11/2021 [employer] Patient Education 2022 [employer]. Follow Up Care 11/15/2023 10:03:53 With:Teofilo BRANDT, Dave Rosen, TREVOR Address: [address] [place] [address]- When: Unknown [facility] Clinical Note 11-15-2023 Note [...] water. ? Keep raw meats separate from uzsga-sp-idi foods, such as fruits and vegetables. ? issuing operator, meat, poultry, and eggs to the recommended [...] include 1 slice of bread, 1 cup zarue-oe-xlu cereal, 3 cups popcorn, or ? cup [...] about 5 teas (more content not included)... [facility] Evaluation + Plan note 07-23-2023 Note Date & Type Note Facility 07-23-2023 Evaluation + Plan note Diagnostic Tests PendingUrine Culture 07/23/23 [facility] Hospital Discharge instructions 07-23-2023 Note Date [...] to keep your urine pale yellow. ?Take flxz-tus-ctekfqr or prescription medicines. ?Eat foods that are high in fiber, such as beans, whole grains, and fresh fruits and vegetables. ?Limit foods that are high in fat and processed sugars, such as fried or sweet foods. General instructions Take ibgz-tdf-udeqqdp and prescription medicines only as told by [...] the muscles that help control urination. Take jfcs-bgb-foyawck and prescription medicines only as told by your health care provider. Contact a health care provider if your symptoms do not improve or get worse. This information is not intended to replace advice given to you by your health care provider. Make sure you discuss any questions you have with your health care provider. Document Revised: 11/26/2020 Document Reviewed: 11/26/2020 [employer] Patient Education 2022 [employer]. 07/23/2023 10:36:54 BMI for Adults BMI for [...] numbers. This can be done either in [place] or metric measurements. Note that charts and online BMI calculators are available to help you find your BMI quickly and easily without having to do these calculations yourself. To calculate your BMI in [place] ([place] measurements: 1.Measure your weight in pounds [...] Centers for Disease Control and Prevention: www.cdc.gov [place] Heart Association: www.heart.org National Heart, Lung, and Blood [place]: www.nhlbi.nih.gov Summary Body mass index (BMI) is a number that is calculated from a person's weight and height. BMI may help estimate how much of a person's weight is composed of fat. BMI can help identify those who may be at higher risk for certain medical problems. BMI can be measured using [place] measurements or metric measurements. BMI charts are used to identify whether you are underweight, normal weight, overweight, or obese. This information is not intended to replace advice given to you by your health care provider. Make sure you discuss any questions you have with your health care provider. Document Revised: 01/14/2020 Document Reviewed: 11/21/2019 [employer] Patient Education 2022 [employer]. Follow Up Care 07/23/2023 09:05:39 With:Teofilo BRANDT, TREVOR Jimenez Address: [address] [place] [id number] When: Unknown [facility] History of Present illness Narrative 06-19-2023 Nakul Vaughan DO - 06/19/2023 8:10 AM EST Note Date & Type Note Facility 06-19-2023 History of Presen t illness Narrative Reason for Appointment: Patient ID: Racquel Yadav is a 27 y.o. female who presents for TELEHEALTH FOLLOW UP and Infertility Patient presents today via telephone call for a telehealth appointment. Patients Phone #: [phone] (mobile) Current Medications: has a current medication [...] Nakul Vaughan DO documented in this encounter [facility] Discharge instructions 07-29-2021 Note Date & Type Note Facility 07-29-2021 Hospital Discharg e instructions Patient Education 07/29/2021 17:20:52 [employer] - Post D&C, Hysteroscopy, LEEP or Essure/Laparoscopy [...] Up Care 07/12/2021 14:08:06 With:Mark Moffett Address: [address] [place], [place] [id number]- [facility] (1) When:2 weeks Comments:Call for any problems. [facility] Evaluation + Plan note Note Date & Type Note Facility Evaluation + Plan note No data available for this section [facility] Evaluation note Note Date & Type Note Facility Evaluation note Diagnosis Female infertility Female infertility of unspecified origin documented in this encounter [facility] Discharge instructions Note Date & Type Note Facility Hospital Discharge instructions No data available for this section [facility] Progress note Note Date & Type Note Facility Progress note No data available for this section [facility] Summary Purpose Family History [...] section and content) DATE CREATED AUTHOR 10/31/2017 [facility] DATE CREATED AUTHOR AUTHOR'S ORGANIZ ATION 06/10/2020 [email or web address] DATE CREATED AUTHOR AUTHOR'S ORGANIZ ATION [facility] Reason for Visit (unrecogniz ed section and content) Reason Comments TELEHEALTH FOLLOW UP Infertility Patient Care team informatio n (unrecognized section and content) Personnel Name: Dave Red MD Address: Address: [address] [place] [address] Personnel Name: Dave Red MD Address: Address: [address] [place] [address] Personnel Name: Dave Red MD Address: Address: [address] [place] [address] Personnel Name: Dave Red MD Address: Address: [address] [place] [address] FOR RECORDS PERTAINING TO PATIENTS WHO ARE [...] BE BASED ON THE PRIMARY CLINICAL RECORDS. [employer] [facility]. provides no warranty or guarantee of the accuracy or completeness of information in this document.
[2024-02-12 16:39] LABS: Basophils Absolute Auto 0.1 10^3/uL (0.0-0.1); Basophils Percent Auto 0.4 % (0.2-2.0); Eosinophils Absolute Auto 0.2 10^3/uL (0.0-0.7); Eosinophils Percent Auto 1.5 % (0.9-7.0); Hematocrit 38.9 % (36.0-48.0); Hemoglobin 13.2 g/dL (12.0-16.0); Immature Granulocytes Abs Auto 0.05 10^3/uL (0.00-0.03); Immature Granulocytes Pct Auto 0.4 % (0.0-0.5); Lymphocytes Absolute Auto 3.4 10^3/uL (1.2-3.8); Lymphocytes Percent Auto 23.8 % (20.5-60.0); Mean Corpuscular HGB Conc 33.9 g/dL (29.9-35.2); Mean Corpuscular Hemoglobin 29.9 pg (26.7-34.0); Mean Corpuscular Volume 88.2 fL (81.0-99.0); Mean Platelet Volume 9.4 fL (9.5-13.5); Monocytes Absolute Auto 0.8 10^3/uL (0.3-0.8); Monocytes Percent Auto 5.7 % (1.7-12.0); Neutrophils Absolute Auto 9.7 10^3/uL (1.4-6.5); Neutrophils Percent Auto 68.2 % (43.0-75.0); Platelet Count 326 10^3/uL (150-450); Red Blood Count 4.41 10^6/uL (4.20-5.40); Red Cell Distribution Width 12.4 % (11.0-15.0); White Blood Count 14.1 10^3/uL (4.0-11.0)
[2024-02-12 16:52] LABS: BOX Test Reference Lab UNITY; BOX Test Sent Out Y
[2024-02-12 16:53] LABS: Estimated Average Glucose 100 mg/dL; Glycohemoglobin A1C 5.1 % (4.5-6.2)
[2024-02-12 17:11] LABS: Amphetamine Screen Urine NEGATIVE (NEGATIVE); Barbiturates Screen Urine NEGATIVE (NEGATIVE); Benzodiazepines Screen Urine NEGATIVE (NEGATIVE); Buprenorphine Screen Urine NEGATIVE (NEGATIVE); Cannabinoid Screen Urine NEGATIVE (NEGATIVE); Cocaine Screen Urine NEGATIVE (NEGATIVE); Methadone Screen Urine NEGATIVE (NEGATIVE); Methamphetamines Screen Urine NEGATIVE (NEGATIVE); Opiate Screen Urine NEGATIVE (NEGATIVE); Oxycodone Screen Urine NEGATIVE (NEGATIVE); Phencyclidine Screen Urine NEGATIVE (NEGATIVE); Tricyclic Antidepressant Urine NEGATIVE (NEGATIVE)
[2024-02-14 06:14] LABS: HBsAg Screen Negative (Negative); HCV Ab Non Reactive (Non Reactive); HIV Ab/p24 Ag Screen Non Reactive (Non Reactive)
[2024-02-14 13:08] LABS: Rapid Plasma Reagin, Quant Non Reactive titer (NonRea<1:1)
== END 2024-02-12 16:11 | disposition home or self-care (01) ==
PROVIDERS: Visit Provider Obstetrics & Gynecology
DX: Z34.01 Encounter for supervision of normal first pregnancy, first trimester (principal); Z36.0 Encounter for antenatal screening for chromosomal anomalies; N92.6 Irregular menstruation, unspecified
CPT/HCPCS: 36415; 80307; 83036; 85025; 86592; 86762; 86803; 86850; 86900; 86901; 87086; 87150; 87186; 87340; 87389

== ENCOUNTER 2024-03-06 12:19 | Outpatient (OUT) | payer OTHER, SELFPAY ==
--- NOTE | 2024-03-06 12:21 | US_ITS ---
[place] [id number] Patient Name: RACQUEL GRAHAM MRN: [id number] date: 1995 Sex: F Assigned Patient Location: [facility] Current Patient Location: [facility] Accession/Order Number: [id number] Exam Date: 03/06/2024 12:23 Report Date: 03/06/2024 13:13 At the request of: RORO YU Procedure: US OB cervical length EXAMINATION: US OB cervical length HISTORY: HISTORY OF LOOP ELECTROSURGICAL EXCISION PROCEDURE COMPARISON: No relevant comparison available. FINDINGS: Transvaginal images Heart rate: 161 bpm Cervix: 4.2 cm, closed Clinical age: 13 weeks 2 days US/US OB cervical length IMPRESSION: Closed cervix measuring 4.2 cm Electronically authenticated by: RUSSELL ULRICH Date: 03/06/2024 13:13
== END 2024-03-06 12:20 | disposition home or self-care (01) ==
LOC: NOMS 12:20
PROVIDERS: Visit Provider Obstetrics & Gynecology
DX: O34.41 Maternal care for other abnormalities of cervix, first trimester (principal); Z98.890 Other specified postprocedural states; Z3A.13 13 weeks gestation of pregnancy
CPT/HCPCS: 76817

== ENCOUNTER 2024-03-26 15:10 | Outpatient (OUT) | payer SELFPAY ==
--- NOTE | 2024-03-26 15:13 | US_ITS ---
[place] [id number] Patient Name: RACQUEL GRAHAM MRN: [id number] date: 1995 Sex: F Assigned Patient Location: [facility] Current Patient Location: [facility] Accession/Order Number: [id number] Exam Date: 03/26/2024 15:14 Report Date: 03/26/2024 15:57 At the request of: RORO YU Procedure: US OB cervical length EXAMINATION: US OB cervical length HISTORY: LOOP ELECTROSURGICAL EXCISION PROCEDURE COMPARISON: 03/06/2024 FINDINGS: Closed cervix measuring 3.6 cm in length Clinical age: 16 weeks 1 day Clinical BINDU: 09/09/2024 US/US OB cervical length IMPRESSION: Closed cervix measuring 3.6 cm Electronically authenticated by: RUSSELL ULRICH Date: 03/26/2024 15:57
--- OUTSIDE RECORDS SUMMARY | 2024-03-26 15:26 | XMS_ITS | CCD ---
Author Organization [facility] Care Team Providers Care Transit Vehicle Inspector Name Role Phone PHYSICIAN, DEFAULT Unavailable Unavailable PHYSICIAN, DEFAULT Unavailable Unavailable SHENDGE, VITHAL Unavailable Unavailable SHENDGE, VITHAL Unavailable Unavailable SELF, REFERRED Unavailable Unavailable SELF, REFERRED Unavailable Unavailable Dave Red Primary Care Physician Unavailable Primary Care Provider UnavailCristi Hannah Attending Unavailable Barby Pastrana Admitting Unavailable Barby Pastrana Attending Unavailable Cristi Saldana Admitting Unavailable Cristi Saldana Attending Unavailable DO Poncho Sanchez Attending Unavailable Barby Pastrana Attending Unavailable GIO GRAF Attending Unavailable DO Poncho Sanchez Attending Unavailable Allergies Allergy Classification Reported Allergen(s) Allergy Type Date of Onset Reaction(s) Facility (1 source) No Known Medication Allergies; Translations: [No Known Medication Allergies] Propensity to adverse reactions (disorder) [facility] Medications Current Medications Medication Drug Class(es) Dates Sig (Normalized) Sig (Original) cephalexin 500 mg oral capsule (1 source) Cephalosporin Antibacterial Start: 03-03-20 24 End: 03-10-20 24 take 1 capsule by mouth in the morning, then take 1 capsule by mouth in the evening, then take 1 capsule by mouth at bedtime cephalexin (Keflex) 500 MG capsule Indications: Vaginal discharge during , antepartum Take 1 capsule (500 mg) by mouth in the morning and 1 capsule (500 mg) in the evening and 1 capsule (500 mg) before bedtime. Do all this for 7 days. 21 capsule 03/03/2024 03/10/2024 Active ibuprofen 600 mg oral tablet (2 sources) Nonsteroidal Anti-inflammatory Drug Start: 07-30-19 22 take 1 tablet by mouth every six hours ibuprofen 600 mg Tab 600 mg = 1 tab(s), Oral, q6hr, # 10 tab(s), Refills(s) 0, Pharmacy: [facility] Include [facility], 164, cm, 07/20/21 5:00:00 EDT, Height/Length Dosing, 79.7, kg, 07/20/21 5:00:00 EDT, Weight Dosing Start Date: 07/29/21 Status: Ordered letrozole 2.5 mg oral tablet (6 sources) Aromatase Inhibitor Start: 07-23-19 letrozole 2.5 mg Tab Refills(s) 0 Start Date: 07/23/23 Status: Ordered medroxyPROGESTERone acetate 10 mg oral tablet (12 sources) Progestin Start: 02-14-20 End: 02-13-20 medroxyPROGESTERone 10 mg Tab Refills(s) 0 Start Date: 07/23/23 Status: Ordered metFORMIN hydrochloride 500 mg oral tablet (2 sources) Biguanide Start: 02-14-20 End: 02-13-20 take 1 tablet by mouth at mealtime metFORMIN (Glucophage) 500 MG tablet Indications: PCOS (polycystic ovarian syndrome) Take 1 tablet (500 mg) by mouth in the morning. Take with meals. 30 tablet 11 02/13/2023 02/13/2024 Active ondansetron 4 mg disintegrating oral tablet (5 sources) Serotonin-3 Receptor Antagonist Start: 02-11-20 End: 03-26-20 take 1 tablet by mouth every six hours for nausea ondansetron ODT (Zofran-ODT) 4 MG disintegrating tablet Indications: Nausea and vomiting in Take 1 tablet (4 mg) by mouth every 6 (six) hours if needed for nausea or vomiting 30 tablet 2 02/25/2024 03/26/2024 Active promethazine hydrochloride 12.5 mg oral tablet (3 sources) Phenothiazine Start: 02-12-20 take 1 tablet by mouth every six hours as needed for nausea and nausea, then take 1 tablet by mouth every six hours as needed for nausea and nausea promethazine (Phenergan) 12.5 MG tablet Indications: Nausea and vomiting in Take 1 tablet (12.5 mg) by mouth every 6 (six) hours if needed for nausea or vomiting for up to 30 doses Take 1 tablet by mouth every 6 hours as needed for nausea. 30 tablet 2 02/12/2024 Active terconazole 4 mg/ml vaginal cream (2 sources) Azole Antifungal Start: 02-25-20 End: 03-10-20 terconazole (Terazol 7) 0.4 % vaginal cream Indications: Vaginal discharge during , antepartum Insert 1 applicator into the vagina at bedtime for 7 days 45 g 03/03/2024 03/10/2024 Active Problems Active Problems Problem Classification Problem Date Documented Date Episodic/Chronic Anxiety disorders (8 sources) Generalized anxiety disorder 09-20-2018 Chronic Cancer of cervix (1 source) Carcinoma in situ of uterine cervix; Translations: [Carcinoma in situ of cervix, unspecified] Onset: 07-29-2021 Episodic Female infertility (2 sources) Female infertility; Translations: [Female infertility, unspecified] 06-14-2023 Chronic Genitourinary symptoms and ill-defined conditions (2 sources) Increased frequency of urination; Translations: [Frequency of micturition] Onset: 07-23-2023 Episodic Hemorrhage during ; abruptio placenta; placenta previa (2 sources) Antepartum hemorrhage; Translations: [Antepartum hemorrhage, unspecified, unspecified trimester] Onset: 03-15-2024 Episodic Mood disorders (8 sources) Major depressive disorder 09-20-2018 Chronic Other connective tissue disease (1 source) Hand pain; Translations: [Pain in right hand] Onset: 11-15-2023 Episodic Other endocrine disorders (8 sources) Polycystic ovary Onset: 05-07-2016 06-11-2019 Chronic Other nutritional; endocrine; and metabolic disorders (9 sources) Obesity; Translations: [Obesity, unspecified] Onset: 11-15-2023 12-03-2019 Chronic Other nutritional; endocrine; and metabolic disorders (3 sources) Obese class I; Translations: [Body mass index (BMI) 32.0-32.9, adult] Onset: 07-23-2023 Chronic Residual codes; unclassified (1 source) Past history of procedure; Translations: [Other specified postprocedural states] Onset: 07-29-2021 Episodic Substance-related disorders (8 sources) Smoker 07-19-2021 Chronic Comment on above: Added secondary to d ocumentation in Social History. Unclassified (2 sources) Unknown / UNK(Unknown) Onset: 12-01-2016 Unclassified (1 source) OB Reminders Onset: 03-03-2024 03-03-2024 Past or Other Problems Problem Classification Problem Date Documented Da te Episodic/Chronic Fracture of upper limb (4 sources) Displaced comminuted fracture of shaft of humerus, left arm, subsequent encounter for fracture with routine healing; Translations: [DISPL COMMNT FX SHAFT OF HUMER, L ARM, 7THD] Onset: 12-01-2016 Episodic Unclassified (8 sources) None (qualifier value) 06-13-2019 Results Test Name Value Interpretation Reference Range [place] [facility] [place] 03-15-2024 [place] [address] m[IU]/mL High 1-3 F [facility] Comment on above: Result Comment: 'F N ON < 1 - 3' ' 0.2 - 1 WEEK = 5 TO 50' ' 1 - 2 WEEKS = 50 - 500' ' 2 - 3 WEEKS = 100 - 5000' ' 3 - 4 WEEKS = 500 - 29250' ' 4 - 5 WEEKS = 1000 - 16019' ' 5 - 6 WEEKS = 74096 - 970658' ' 6 - 8 WEEKS = 00991 - 077604' ' 8 - 12 WEEKS = 08939 - 363741' Performed By: #### [id number] #### [facility] [address] [place] [id number] CHEMISTRYOrdered By: SYSTEM SYSTEM on 03-15-2024 [place] [address] m[IU]/mL High 1 - 3 mIU/mL [facility] Comment on above: Result Comment: 'F N ON < 1 - 3' ' 0.2 - 1 WEEK = 5 TO 50' ' 1 - 2 WEEKS = 50 - 500' ' 2 - 3 WEEKS = 100 - 5000' ' 3 - 4 WEEKS = 500 - 62355' ' 4 - 5 WEEKS = 1000 - 35724' ' 5 - 6 WEEKS = 23081 - 642321' ' 6 - 8 WEEKS = 83900 - 403977' ' 8 - 12 WEEKS = 84061 - 872405' ED Clinical Summaryon 2023 ED Clinical Summary ED Clinical Summary [place] [id number] ED Clinical Summary Person Information Name: RACQUEL YADAV [place] Age: 28 Years : 1995 Sex: Female Language: Nepalese PCP: Dave Red MD Marital Status: Phone: Visit Id: Visit Reason: Nausea; Vaginal bleeding - < 20 wks ; VAGINAL BLEEDING, 14 WKS PREG Speciality: Acuity: 3 Enc Type: Emergency Med Service: Emergency Arrival: 03/15/2024 03:59:56 Discharge: 03/15/2024 08:09:24 LOS: 000 04:10 Checkin: 03/15/2024 03:59:56 Checkout: 03/15/2024 08:09:24 Dispo Type: Home (Routine DC) EVENTS: Event Name Event Status Request Date/Time Start Date/Time Complete Date/Time Arrive Complete 03/15/2024 03:59:56 03/15/2024 03:59:56 03/15/2024 03:59:56 Document Home Meds Request 03/15/2024 03:59:56 Triage Complete 03/15/2024 03:59:56 03/15/2024 04:11:48 03/15/2024 04:11:48 Dr Exam Complete 03/15/2024 04:01:12 03/15/2024 04:01:12 03/15/2024 04:01:12 Registration Complete 03/15/2024 04:01:12 03/15/2024 04:01:22 03/15/2024 04:02:45 Bed Assign Complete 03/15/2024 04:01:22 03/15/2024 04:01:22 03/15/2024 04:01:22 RN Exam Complete 03/15/2024 04:01:22 03/15/2024 05:13:32 03/15/2024 05:13:32 Reg Complete Request 03/15/2024 04:02:45 Reg Bed Request Complete 03/15/2024 04:02:45 03/15/2024 04:02:45 03/15/2024 04:02:45 Pending Labs Complete 03/15/2024 04:16:02 03/15/2024 04:54:20 Pending Labs Inlab 03/15/2024 04:45:46 Lab Inlab 03/15/2024 04:45:46 US Cancel 03/15/2024 05:00:26 03/15/2024 07:41:37 Pending Labs Complete 03/15/2024 05:14:14 03/15/2024 06:48:44 Lab Complete 03/15/2024 05:14:14 03/15/2024 06:48:44 Pending Labs Complete 03/15/2024 06:33:20 03/15/2024 06:33:20 03/15/2024 06:33:20 Dr Exam Complete 03/15/2024 07:16:54 03/15/2024 07:16:54 03/15/2024 07:16:54 Registration Request 03/15/2024 07:16:54 US Complete 03/15/2024 07:41:36 03/15/2024 07:41:48 03/15/2024 07:59:49 Discharge Complete 03/15/2024 08:03:08 03/15/2024 08:09:45 03/15/2024 08:09:45 Transfer Complete 03/15/2024 08:09:45 03/15/2024 08:09:45 03/15/2024 08:09:45 ADDRESS: [address] [place] [id number] PHYS DOC NOTES: Addendum by Augie Boyd DO on March 15, 2024 08:03:55 EST MEDICAL INFORMATION: Prescriptions Given: Medications to Continue with No Changes Other Medications letrozole (letrozole 2.5 mg Tab) medroxyPROGESTERone (medroxyPROGESTERone 10 mg Tab) PATIENT EDUCATION INFORMATION: Instructions: Follow up: With: Address: When: Nakul Brown [facility], [address] [place] [address] [place], [place] [id number] Business (1) In 3 days 03/18/2024 With: Address: When: Dave Red [address] [place], [place] [id number] Business (1) In 3 days DIAGNOSIS: Threatened ; Vaginal bleeding in Normal [facility] ED Note-Physicianon 03-15-20 24 ED Note-Physician ED Note-Physician Basic Information Time Seen: Poncho Sanchez DO 03/15/2024 04:01 Chief Complaint pt to ED with c/o light bleeding for last few hours. pt is approx 14 wks preg. states mild lower abd cramping. also states recent UTI that she still thinks is there. blood noted when wiping per pt. . follows with Clement. History of Present Illness Patient is a 28-year-old female presenting to the ED for evaluation of concerns of light bleeding with wiping. Patient states started several hours ago however has also been having lower abdominal cramping is currently finishing treatment for urinary tract infection however states her symptoms have not resolved. Patient denies any fevers, chills, is looking normal per patient and follows with Dr. Vaughan Review of Systems A 10 point review of systems is negative except as noted above. Medical and Surgical History: Reviewed and noted Social history: Lives at home Tobacco: Denies Physical Exam Vitals & Measurements T: 36.9 ???C(Oral) HR: 94(Peripheral) RR: 16 BP: 123/95 SpO2: 97% HT: 165 cm WT: 86.0 kg BMI: 31.59 General: Well developed, non toxic appearing, no acute distress HEENT: Head atraumatic, Mucosa moist, hearing grossly normal Neck: No JVD, tracheal deviation Cardiac: Regular rate, rhythm, no murmurs, or gallops, 2+ radial pulses Respiratory: Lungs clear to auscultation B/L, normal respiratory effort Abdomen: Soft non tender, no rebound or guarding, no peritoneal signs performed with nurse Mcclellan, normal external genitalia, cervical os is closed, no blood noted at the cervical os there is white discharge noted on examination Extremities: No edema noted in the LE B/L, no tenderness to palpation Neurologic: Alert and oriented, speech clear Skin: No rashes or lesions Psych: Appropriate mood and behavior Medical Decision Making MEDICAL DECISION MAKING Number and Complexity of Problems Differential Diagnosis: [] [facility] Data External documents reviewed: [] My EKG interpretation: [] My CT interpretation: [] My X-ray interpretation: [] My Ultrasound interpretation: [] Decision rules/scores evaluated: [] Discussed with: [] Treatment and Disposition ED Course: Patient is a 28-year-old female presenting to the ED for evaluation of bleeding in . Patient nontoxic and on arrival, no acute distress. Due to her complaints urinalysis is obtained. Pelvic exam is performed with no blood noted on pelvic examination. Urinalysis not significant for infection. Due to this we will obtain pelvic ultrasound to assess possible related bleeding possible compromise. Patient recently had blood work done as she has a positive blood type. Beta quantitative hCG is obtained. Patient signed out to Dr. Boyd pending ultrasound imaging results and disposition. Shared decision making: [] Code status: [] Assessment/Plan Vaginal bleeding in (O46.90: Antepartum hemorrhage, unspecified, unspecified trimester) Orders: Beta hCG Quantitative Cervical Culture Extra Lav Tube Extra SST Tube UA with Cult Rflx US After 1st Trimester Disposition Plan Discharge Prescription List Prescriptions No active prescription medications Follow-up No qualifying data available Problem List/Past Medical History Ongoing Generalized anxiety disorder Major depressive disorder Never Smoker Obesity PCO (polycystic ovaries) Historical None Procedure/Surgical History left humerus ORIF (09/15/2016), appendectomy. Medications Inpatient No active inpatient medications Home letrozole 2.5 mg Tab medroxyPROGESTERone 10 mg Tab Allergies No Known Allergies No Known Medication Allergies Social History Alcohol Wine, Liquor, 1-2 times per week, 4 drinks/episode average. 1.00 drinks/episode maximum. Started age 16 Years. Previous treatment: None. Alcohol use interferes with work or home: No. Drinks more than intended: No. Others hurt by drinking: No., 09/20/2018 Employment/School Employed, Work/School description: Works at [employer]. Previous employment/school: Student. Activity level: Occasional physical work. Highest education level: Some college. Operates hazardous equipment: No., 09/20/2018 Exercise Exercise duration: 4. Exercise frequency: 5-6 times/week. Self assessment: Fair condition. Exercise type: Walking., 09/20/2018 Home/Environment Lives with Lives with boyfriend.. Living situation: Home/Independent. Alcohol abuse in household: No. Substance abuse in household: No. Smoker in household: No. Injuries/Abuse/Neglect in household: No. Feels unsafe at home: Yes., 09/20/2018 Nutrition/Health Diet restrictions: None. Wants to lose weight: Yes. Sleeping concerns: No. Feels highly stressed: Yes., 09/20/2018 Sexual Identifies as female Gender Identity:. Sexually active: Yes. Sexually active at age 14 Years. Number of current partners 1. Number of lifetime (more content not included)... Normal [facility] Comment on above: Result Comment: Elec tronically Signed By: Augie Boyd DO\.mignon\Date and Time Signed: 03/15/24 08:04 EST ED Note-Physician ED Note-Physician Basic Information Time Seen: Poncho Sanchez DO 03/15/2024 04:01 Chief Complaint pt to ED with c/o light bleeding for last few hours. pt is approx 14 wks preg. states mild lower abd cramping. also states recent UTI that she still thinks is there. blood noted when wiping per pt. . follows with Clement. History of Present Illness Patient is a 28-year-old female presenting to the ED for evaluation of concerns of light bleeding with wiping. Patient states started several hours ago however has also been having lower abdominal cramping is currently finishing treatment for urinary tract infection however states her symptoms have not resolved. Patient denies any fevers, chills, is looking normal per patient and follows with Dr. Vaughan Review of Systems A 10 point review of systems is negative except as noted above. Medical and Surgical History: Reviewed and noted Social history: Lives at home Tobacco: Denies Physical Exam Vitals & Measurements T: 36.9 ???C(Oral) HR: 94(Peripheral) RR: 16 BP: 123/95 SpO2: 97% HT: 165 cm WT: 86.0 kg BMI: 31.59 General: Well developed, non toxic appearing, no acute distress HEENT: Head atraumatic, Mucosa moist, hearing grossly normal Neck: No JVD, tracheal deviation Cardiac: Regular rate, rhythm, no murmurs, or gallops, 2+ radial pulses Respiratory: Lungs clear to auscultation B/L, normal respiratory effort Abdomen: Soft non tender, no rebound or guarding, no peritoneal signs performed with nurse Vy, normal external genitalia, cervical os is closed, no blood noted at the cervical os there is white discharge noted on examination Extremities: No edema noted in the LE B/L, no tenderness to palpation Neurologic: Alert and oriented, speech clear Skin: No rashes or lesions Psych: Appropriate mood and behavior Medical Decision Making MEDICAL DECISION MAKING Number and Complexity of Problems Differential Diagnosis: [] [facility] Data External documents reviewed: [] My EKG interpretation: [] My CT interpretation: [] My X-ray interpretation: [] My Ultrasound interpretation: [] Decision rules/scores evaluated: [] Discussed with: [] Treatment and Disposition ED Course: Patient is a 28-year-old female presenting to the ED for evaluation of bleeding in . Patient nontoxic and on arrival, no acute distress. Due to her complaints urinalysis is obtained. Pelvic exam is performed with no blood noted on pelvic examination. Urinalysis not significant for infection. Due to this we will obtain pelvic ultrasound to assess possible related bleeding possible compromise. Patient recently had blood work done as she has a positive blood type. Beta quantitative hCG is obtained. Patient signed out to Dr. Boyd pending ultrasound imaging results and disposition. Shared decision making: [] Code status: [] Assessment/Plan Vaginal bleeding in (O46.90: Antepartum hemorrhage, unspecified, unspecified trimester) Orders: Beta hCG Quantitative Cervical Culture Extra Lav Tube Extra SST Tube UA with Cult Rflx US After 1st Trimester Disposition Plan Discharge Prescription List Prescriptions No active prescription medications Follow-up No qualifying data available Problem List/Past Medical History Ongoing Generalized anxiety disorder Major depressive disorder Never Smoker Obesity PCO (polycystic ovaries) Historical None Procedure/Surgical History left humerus ORIF (09/15/2016), appendectomy. Medications Inpatient No active inpatient medications Home letrozole 2.5 mg Tab medroxyPROGESTERone 10 mg Tab Allergies No Known Allergies No Known Medication Allergies Social History Alcohol Wine, Liquor, 1-2 times per week, 4 drinks/episode average. 1.00 drinks/episode maximum. Started age 16 Years. Previous treatment: None. Alcohol use interferes with work or home: No. Drinks more than intended: No. Others hurt by drinking: No., 09/20/2018 Employment/School Employed, Work/School description: Works at [employer]. Previous employment/school: Student. Activity level: Occasional physical work. Highest education level: Some college. Operates hazardous equipment: No., 09/20/2018 Exercise Exercise duration: 4. Exercise frequency: 5-6 times/week. Self assessment: Fair condition. Exercise type: Walking., 09/20/2018 Home/Environment Lives with Lives with boyfriend.. Living situation: Home/Independent. Alcohol abuse in household: No. Substance abuse in household: No. Smoker in household: No. Injuries/Abuse/Neglect in household: No. Feels unsafe at home: Yes., 09/20/2018 Nutrition/Health Diet restrictions: None. Wants to lose weight: Yes. Sleeping concerns: No. Feels highly stressed: Yes., 09/20/2018 Sexual Identifies as female Gender Identity:. Sexually active: Yes. Sexually active at age 14 Years. Number of current partners 1. Number of lifetime (more content not included)... Normal [facility] Comment on above: Result Comment: Elec tronically Signed By: Poncho Sanchez DO\.br\Date and Time Signed: 03/15/24 06:45 EST ED Patient Education Noteon 03-15-2024 ED Patient Education Note ED Patient Education Note Normal [facility] ED Patient Summaryon 024 ED Patient Summary ED Patient Summary [place] [id number] Patient Discharge Instructions Person Information Name: RACQUEL YADAV Age: 28 Years Arrival Date: 03/15/2024 03:59:56 Discharge Diagnosis: Threatened ; Vaginal bleeding in Primary Care Physician: Teofilo BRANDT, Dave Rosen Provider Information Primary Provider: Poncho Sanchez DO Advanced Quality Control Engineer:None The exam and treatment you received in the Emergency Department were for an urgent problem and are not intended as complete care. It is important that you follow up with a doctor, nurse practitioner, or physician???s surgical first assistant for ongoing care. If your symptoms become worse or you do not improve as expected and you are unable to reach your usual health care provider, you should return to the Emergency Department. We are available 24 hours a day. RACQUEL YADAV has been given the following list of patient education materials, prescriptions and follow-up instructions: Follow-up Instructions: With: Address: When: Nakul VAUGHAN [facility], [address] [place] [address] [place] [address] Business (1) In 3 days 03/18/2024 With: Address: When: Dave Red [place] [address] Business (1) In 3 days In the event that this physician does not participate in your insurance network, please consult with your insurance company to find a nearby participating provider. Patient Education Materials: A MESSAGE TO ALL PATIENTS REGARDING OPIOIDS PRESCRIPTION OPIOIDS: WHAT YOU NEED TO KNOW Prescription opioids can be used to help relieve almkceak-yo-zekpoo pain and are often prescribed following a surgery or injury, or for certain health conditions. These medications can be an important part of the treatment but also come with serious risks. It is important to work with your healthcare provider to make sure you are getting the safest, most effective care. WHAT ARE THE RISKS AND SIDE EFFECTS OF OPIOID USE? Prescription opioids carry serious risks of addiction and overdose, especially with prolonged use. An opioid overdose, often marked by slowed breathing, can cause sudden . The use of prescription opioids can have a number of side effects as well, even when taken as directed: ??? Tolerance???meaning you might need to take more of the medication for the same pain relief ??? Physical dependence???meaning you have symptoms of withdrawal when a medication is stopped ??? Increased sensitivity to pain ??? Constipation ??? Nausea, vomiting, and dry mouth ??? Sleepiness and dizziness ??? Confusion ??? Depression ??? Low levels of testosterone that can result in lower sex drive, energy, and strength ??? Itching and sweating RISKS ARE GREATER WITH: ??? History of drug misuse, substance use disorder, or overdose ??? Mental health conditions (such as depression or anxiety) ??? Sleep apnea ??? Older age (65 years and older) ??? Avoid alcohol while taking prescription opioids. Also, unless specifically advised by your health care provider, medications to avoid include: ??? Benzodiazepines (such as Xanax or Valium) ??? Muscle relaxants (such as Soma or Flexeril) ??? Hypnotics (such as Ambien or Lunesta) ??? Other prescription opioids KNOW YOUR OPTIONS Talk to your health care provider about ways to manage your pain that don???t involve prescription opioids. Some of these options may actually work better and have fewer risks and side effects. Options may include: ??? Pain relievers such as acetaminophen, ibuprofen, and naproxen ??? Some medication that are also used for depression or seizures ??? Physical therapy and exercise ??? Cognitive behavioral therapy, a psychological, goal-directed approach, in which patients learn how to modify physical, behavioral, and emotional triggers of pain and stress. IF YOU ARE PRESCRIBED OPIOIDS FOR PAIN: ??? Never take opioids in greater amounts or more often than prescribed. ??? Follow up with your primary health care provider. o Work together to create a plan on how to manage your pain. o Talk about ways to help manage your pain that don???t involve prescription opioids. o Talk about any and all concerns and side effects. ??? Help prevent misuse and abuse o Never sell or share prescription opioids. o Never use another person???s prescription opioids. ??? Store prescription opioids in a secure place and out of reach of others (this may include visitors, children, friends, and family). ??? Safely dispose of unused prescription opioids: Find your community drug take-back program or your pharmacy mail-back program, or flush them down the toilet, following guidance from the Food and Drug Administration (www.fda.gov/Drugs/Res ourcesForYou). ??? Visit www.cdc.gov/drugoverdo se to learn about t (more content not included)... Normal [facility] Extra Blueon 03-15-2024 Tube Collected Plasma Yes Invalid Interpretation Code [facility] Comment on above: Performed By: #### 1 [id number] #### [facility] [address] [place] [address] Extra Scot 03-15-2024 WB Tube Collected Yes Invalid Interpretation Code [facility] Comment on above: Performed By: #### 1 [id number] #### [facility] [address] [place] [address] No Panel InformationOrdered By: Stephanie Acevedo on 03-15-2024 WP No Trichomonas vaginalis present No clue cells present No yeast seen [facility] UA with Cult Rflxon 03-15-20 24 Bilirubin Ql (U) Negative Normal Negative [facility] Comment on above: Performed By: #### 4 [id number] #### [facility] [address] [place] [address] Clarity (U) Clear Normal Clear [facility] Comment on above: Performed By: #### 4 [id number] #### [facility] [address] [place] [address] Color (U) Light-Yellow Normal Yellow [facility] Comment on above: Result Comment: Micr oscopic readings are only performed on those samples that meet specific criteria set forth by [facility]. Performed By: #### 4 [id number] #### [facility] [address] [place] [address] Glucose Ql (U) Negative Normal Negative [facility] Comment on above: Performed By: #### 4 [id number] #### [facility] [address] [place] [address] Hemoglobin Auto test strip (U) [Mass/Vol] Trace Abnormal Negative [facility] Comment on above: Performed By: #### 4 [id number] #### [facility] [address] [place] [address] Ketones Auto test strip Ql (U) 1+ mg/dL Abnormal Negative [facility] Comment on above: Performed By: #### 4 [id number] #### [facility] [address] [place] [address] Leukocyte esterase Auto test strip Ql (U) Negative Normal Negative [facility] Comment on above: Performed By: #### 4 [id number] #### [facility] [address] [place] [address] Nitrite Auto test strip Ql (U) Negative Normal Negative [facility] Comment on above: Performed By: #### 4 [id number] #### [facility] [address] [place] [address] pH (U) 5.5 [pH] Invalid Interpretation Code 5.0-9.0 [facility] Comment on above: Performed By: #### 4 [id number] #### [facility] [address] [place] [address] Protein Ql (U) Negative Normal Negative [facility] Comment on above: Performed By: #### 4 [id number] #### [facility] [address] [place] [address] Specific gravity (U) [Rel density] 1.015 Invalid Interpretation Code 1.005-1.030 [facility] Comment on above: Performed By: #### 4 [id number] #### [facility] [address] [place] [address] Urobilinogen (U) [Mass/Vol] Negative Normal Negative [facility] Comment on above: Performed By: #### 4 [id number] #### [facility] [address] [place] [address] Type of Urine collection method Clean Catch Normal [facility] Comment on above: Performed By: #### 4 [id number] #### [facility] [address] [place] [address] URINALYSISOrdered By: SYSTEM SYSTEM on 03-15-2024 Bilirubin Ql (U) Negative Normal Negativemg/ d L [facility] UA Auto SS Clarity (U) Clear (03/15/24 4:39 AM) Normal Clear [facility] UA Auto SS Color (U) Light-Yellow 1 (03/15/24 4:39 AM) Normal Yellow [facility] UA Auto SS Comment on above: Interpretive Data: M icroscopic readings are only performed on those samples that meet specific criteria set forth by [facility]. Glucose Ql (U) Negative Normal Negativemg/d L [facility] UA Auto SS Hemoglobin Auto test strip (U) [Mass/Vol] Trace mg/dL Invalid Interpretation Code Negativemg/d L [facility] UA Auto SS Ketones Auto test strip Ql (U) 1+ mg/dL Invalid Interpretation Code Negativemg/d L [facility] UA Auto SS Leukocyte esterase Auto test strip Ql (U) Negative Normal NegativeLeu/ uL [facility] UA Auto SS Nitrite Auto test strip Ql (U) Negative Normal Negativemg/d L [facility] UA Auto SS pH (U) 5.5 *NA* (03/15/24 4:39 AM) Invalid Interpretation Code 5.0 - 9.0 [facility] UA Auto SS Protein Ql (U) Negative Normal Negativemg/d L [facility] UA Auto SS Specific gravity (U) [Rel density] 1.015 *NA* (03/15/24 4:39 AM) Invalid Interpretation Code 1.005 - 1.030 [facility] UA Auto SS Urobilinogen (U) [Mass/Vol] Negative Normal Negativemg/d L [facility] UA Auto SS URINALYSISOrdered By: Kristan Sanchez on 03-15-2024 UA Spec Desc Clean Catch (03/15/24 4:39 AM) Normal [facility] UA Auto SS US Limitedon 03-15 Limited Exam Date/Time: 03/15/2024 07:59 EST Reason for Exam: Vaginal bleeding;Other (please specify) Report IMPRESSION: SINGLE LIVE INTRAUTERINE WITH ESTIMATED AGE BY THIS ULTRASOUND OF 14 WEEKS 4 DAYS. HEART RATE MEASURED AT 135 BPM. NO GROSS ABNORMALITY IDENTIFIED. US Limited: 03/15/2024 7:41 AM CLINICAL HISTORY: Vaginal bleeding. COMPARISON: None available. Transabdominal ultrasound of the gravid uterus was performed. FINDINGS: A single live intrauterine is identified. heart rate is measured at 135 bpm. Estimated gestational age by this ultrasound 14 weeks 4 days. The cervix is closed and measures approximately 3.5 cm in length. The placenta is low-lying. Ordering Provider: Poncho Sanchez FINAL REPORT Dictated: 03/15/2024 11:41 am Eduard Pierce DO Signed (Electronic Signature): 03/15/2024 11:41 am Signed by: Eduard Pierce DO Transcribed by: JACQUES Technologist: AGNIESZKA Technical Comments BINDU 09/09/2024 BINDU Obtained BINDU by LMP History 1 Para 0 Transabdominal Ultrasound Performed FHR (bpm) 135 Cervical Length (cm) 3.5 Normal [facility] URETHRITIS/DISCHARGE PLUS VA GINITIS (HTRX)on 03-05-2024 ATOPOBIUM VAGINAE 0 [facility] ATOPOBIUM VAGINAE Not detected [facility] BVAB 2,3 (BACTERIAL VAGINOSIS ASSOCIATED BACTERIA 2, 3); MOBILUNCUS SPP 0 [facility] BVAB 2,3 (BACTERIAL VAGINOSIS ASSOCIATED BACTERIA 2, 3); MOBILUNCUS SPP Not detected [facility] MINERVA ALBICANS, PARAPSILOSIS, TROPICALIS 0 [facility] MINERVA ALBICANS, PARAPSILOSIS, TROPICALIS Not detected [facility] MINERVA GLABRATA 0 [facility] MINERVA GLABRATA Not detected [facility] MINERVA KRUSEI 0 [facility] MINERVA KRUSEI Not detected [facility] CHLAMYDIA TRACHOMATIS 0 [facility] CHLAMYDIA TRACHOMATIS Not detected N S [facility] GARDNERELLA VAGINALIS 0 [facility] GARDNERELLA VAGINALIS Not detected N [facility] MEGASPHAERA (TYPES 1, 2) 0 [facility] MEGASPHAERA (TYPES 1, 2) Not detected [facility] MYCOPLASMA GENITALIUM 0 [facility] S [facility] MYCOPLASMA GENITALIUM Not detected N [facility] NEISSERIA GONORRHOEAE 0 [facility] NEISSERIA GONORRHOEAE Not detected N S [facility] TRICHOMONAS VAGINALIS 0 [facility] TRICHOMONAS VAGINALIS Not detected N S [facility] ALL CBC WITH AUTO DIFFon BASOPHILS ABSOLUTE AUTO 0.1 [facility] Basophils/100 WBC (Bld) 0.4 % 0.2 - 2.0 % [facility] Eosinophils/100 WBC (Bld) 1.5 % 0.9 - 7.0 % [facility] Erythrocyte distribution width (RBC) [Ratio] 12.4 % 11.0 - 15.0 % [facility] Hematocrit (Bld) [Volume fraction] 38.9 % 36.0 - 48.0 % [facility] Hemoglobin (Bld) [Mass/Vol] 13.2 g/dL 12.0 - 16.0 g/dL [facility] IMMATURE GRANULOCYTES ABS AUTO 0.05 High [facility] Immature granulocytes/100 WBC (Bld) 0.4 % 0.0 - 0.5 % [facility] Interpretation and review of laboratory results Abnormal [facility] LYMPHOCYTES ABSOLUTE AUTO 3.4 [facility] Lymphocytes/100 WBC (Bld) 23.8 % 20.5 - 60.0 % [facility] MCH (RBC) [Entitic mass] 29.9 pg 26.7 - 34.0 pg [facility] MCHC (RBC) [Mass/Vol] 33.9 g/dL 29.9 - 35.2 g/dL [facility] MCV (RBC) [Entitic vol] 88.2 fL 81.0 - 99.0 fL [facility] MONOCYTES ABSOLUTE AUTO 0.8 [facility] Monocytes/100 WBC (Bld) 5.7 % 1.7 - 12.0 % [facility] NEUTROPHILS ABSOLUTE AUTO 9.7 High [facility] Neutrophils/100 WBC (Bld) 68.2 % 43.0 - 75.0 % [facility] Platelet mean volume (Bld) [Entitic vol] 9.4 fL Low 9.5 - 13.5 fL [facility] TBH EO # 0.2 [facility] TBH PLT 326 [facility] TB RBC 4.41 [facility] TB WBC 14.1 High [facility] BOX TESTon 02-12-2024 BOX TEST SENT OUT Y [facility] BOX1 UNITY [facility] BOX2 02/12/24 [facility] 0 11-15-2023 Ambulatory Visit Summary Ambulatory Visit Summary RACQUEL YADAV :1995 Visit Date:11/15/2023 Ambulatory Visit Instructions Your Diagnosis Hand pain, right BMI 32.0-32.9,adult Obese Your Care Team Attending Physician - Victoriano CAR, Jeane Primary Care Physician - Teofilo BRANDT, Dave Rosen This Is Your Medications List Contact prescribing [...] Follow Up with Teofilo BRANDT, Dave Rosen, FAM When: Where: [address] [place] [address]- Medications What When Instructions Unchanged letrozole (letrozole [...] water. ? Keep raw meats separate from yzizo-qa-pbf foods, such as fruits and vegetables. ? decorating supervisor, meat, poultry, and eggs to the (more content not included)... Normal [facility]/Clini c Noteon 11-15-2023 Family [...] with voice recognition software. Occasional wrong-word or ?bskan-z-wuhu? substitutions may have occurred due to the [...] of the extremity. She may also use nvcq-mgj-brhhlte analgesics such as ibuprofen or Tylenol per package instructions for comfort. Declines need for work note today. 1. Hand pain, right (M79.641: Pain in right hand) Hand x-ray was negative. Patient encouraged to use rest, ice, compression and elevation for symptom management. As above can use mosv-kzf-qwcjdaf analgesics such as Tylenol or ibuprofen per [...] When Contact Information Teofilo BRANDT, Dave Rosen, [facility] [place] [address]- Additional Instructions: Patient Education Healthy Eating Exercising to Lose Weight BMI for Adults How to Use Cold Therapy, Uueo-nw-Orvb Hand Pain Problem List/Past Medical History Ongoing [...] 09/20/2018 Employment/School Employed, Work/School description: Works at [employer]. Previous employment/school: Student. Activity level: Occasional physical work. Highest education level: Some college. Operates hazardous equipment: No., 09/20/2018 Exercise Exercise duration: 4. Exercise frequency: 5-6 times/week. Self assessment: Fair condition. Exercise type: Walking., (more content not included)... Normal [facility] Comment on above: Result Comment: Elec [...] JACQUES Technologist: PATY Technical Comments Radiation Dose: Ka,r in mGy = . DAP = . Normal [facility] C Urineon 07-25-2023 Bacteria identified Cx Nom [...] Locations R1: This test was performed at: [facility], [address] [place] [address], [address]- , , [facility] Comment on above: Performed By: #### 2 [id number] #### [facility] [address] [place] [address] Ambulatory Visit Summaryon 0 07-23-2023 Ambulatory Visit [...] Follow Up with Teofilo BRANDT, Dave Rosen, [facility] When: Where: [place] [address]- Medications What When Instructions Unchanged letrozole (letrozole [...] keep your urine pale yellow. ? Take thhd-fhw-fqwfqqc or prescription medicines. ? Eat foods that are high in fiber, such as beans, whole grains, and fresh fruits and vegetables. ? Limit foods that are high in fat and processed sugars, such as fried or sweet foods. General instructions ? Take hcpc-fug-ebxyzyn and prescription medicines only as told by [...] muscles that help control urination. ? Take jsrk-tto-fqfrwrp and prescripti (more content not included)... Normal [facility] Family Medicine Office/Clini c Noteon 07-23-2023 [...] with voice recognition software. Occasional wrong-word or ?lrnwr-c-rxbv? substitutions may have occurred due to the [...] with this as she should contact her R[employer] Dr. Vaughan for further evaluation in which [...] of Est. Patient Straight Fwd 10-19 Min [address] 2. BMI 32.0-32.9,adult (Z68.32: Body mass index [BMI] 32.0-32.9, adult) The standard range for ages 18 and older is >=18.5 and < 25 kg/m2. Your BMI today was above this range, this falls in the overweight to obese category and there are medical benefits to weight loss. We can offer counselling, referral, a (more content not included)... Normal [facility] Comment on above: Result Comment: Elec [...] numbers. This can be done either in Nepalese ([place] or metric measurements. Note that charts and online BMI calculators are available to help you find your BMI quickly and easily without having to do these calculations yourself. To calculate your BMI in Nepalese ([place] measurements: 1. Measure your weight in [...] for Disease Control and Prevention: www.cdc.gov ? [place] Heart Association: www.heart.org ? National Heart, Lung, and Blood [place]: www.nhlbi.nih.gov Summary ? Body mass index (BMI) is a number that is calculated from a person's weight and height. ? BMI may help estimate how much of a person's weight is composed of fat. BMI can help identify those who may be at higher risk for certain medical problems. ? BMI can be measured using Nepalese measurements or metric measurements. ? BMI charts are used to identify whether you are underweight, normal weight, overweight, or obese. This information is not intended to replace advice given to you by your health care provider. Make sure you discuss any questions you have with your health care provider. Document Revised: 01/14/2020 Document Reviewed: 11/21/2019 [employer] Patient Education ? 2022 Social[employer]. Urology Urinary Frequency, Adult Urinary frequency means [...] instructions at home: (more content not included)... [facility] Provider Letteron 07-23-2023 Provider Letter July 23, 2023 RACQUEL YADAV [address] [place] [address] : 1995 To Whom It May Concern, Please excuse above patient from work. Date of Illness: 07/23/2023 May Return to Work On:07/24/2023 Sincerely, [facility] [address] [place] [address] [place] [address] [facility] [employer]EDER - Office Visiton [employer]ER - Office Visit Diagnoses/Problems Assessed History of PCOS (polycystic ovarian syndrome) (256.4) (E28.2) Fertility testing (V26.21) (Z31.41) Screening for STD (sexually transmitted disease) (V74.5) (Z11.3) PCOS (polycystic ovarian syndrome) (256.4) (E28.2) Oligomenorrhea (626.1) (N91.5) Orders Anti Mullerian Hormone; Status:Active; Requested for:09Jun2020; 17-Hydroxyprogesterone , Serum; Status:Active; Requested for:09Jun2020; Antithyroid Perox. Ab; [...] Blood type [ ] Genetic Screen with GIVTED - will consider [x ] Take vitamins, vitamin D [x ] Return to see me after workup complete to discuss management plan [x ] Education: New infertility packet to be mailed to patient [x ] Engaged MD albin Johnson MD Reproductive Endocrinology and Infertility [facility] [phone] [facility] [phone] Fl[place] Provider Impressions 24 year old with oligomenorrhea, [...] Blood type [ ] Genetic Screen with GIVTED - will consider [x ] Take vitamins, vitamin D [x ] Return to see me after workup complete to discuss management plan [x ] Education: New infertility packet to be mailed to patient [x ] Engaged MD albin Johnson MD Reproductive Endocrinology and Infertility [facility] [phone] [facility] [phone] [place] Appointment Duration:. 45 minutes; greater than half [...] trying for 4 years. History of Present Cefkkvu0306/09/2020 11:15AM RACQUEL VAZQUEZ , 24 year is contacted for an (audio-visual, or audio only) Telehealth visit. Today's visit was provided through telemedicine conferencing: Using [employer] platform. Consent: The concept of telemedicine? 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 Prior established pregnancies: No Toxic habits: Occasional tobacco use, Rare alcohol use Medications: No Health Problems: No Injuries/Surgeries/STD s: No PRIOR EVALUATION / TREATMENT Fam Hx: [...] No Reported Medications Vitals Vital Signs Recorded: [id number] 11:02AM Height5 ft 5 in Qzifdy684 lb BMI Heolvoulcx49.46 BSA Calculated1.82 Tobacco Useb) No Fall Screeninga) No falls within the last year [id number] Gravida0 Para0 Pain Scale0 Physical Exam This is a telehealth appointment Signatures Electronically signed by : Rayshawn Johnson MD; Jun 09 2020 11:52AM EST (Author) Normal [facility] HUMERUS LEFTon 12-01-2016 HUMERUS LEFT [facility] [address] [place] [address] ========Patient Name: RACQUEL VAZQUEZ : 1995Sex: FAge: Race: WhiteMRN: [id number]. Location: 84Patient Status: Date: 12/01/2016 4:25:00 PMCompleted Date: 12/01/2016 04:28 PMRequesting Provider: CARI GOOD Attending Provider: Report Copy To: Signs & Symptoms: S42.352D Displ commnt fx shaft of humer, l arm, 7thD [id number]: AthenaComments: , , Views (X-RAY, HUMERUS): AP, Lateral , Weight Bearing?: Y , With or Without Brace/Cast/Collar: Without , With Magnification Marker?: N , , , Ordering Provider - CARI GOOD MD , Rendering Provider - CARI GOOD MD , Exam: HUMERUS LEFTAccession #: [id number] HUMERUS LEFT 12/01/2016 4:28 PM EDT SIGNS AND [...] Electronically signed by:Subhash Campos M.D.. Transcribed by: [email or web address], User Resident: Electronically Signed by: SUBHASH CAMPOS @ 12/01/2016 04:35 PM Normal [facility] Comment on above: Order Comment: , , V iews (X-RAY, HUMERUS): AP, Lateral , Weight Bearing?: Y , With or Without Brace/Cast/Collar: Without , With Magnification Marker?: N , , , Ordering Provider - CARI GOOD MD , Rendering Provider - CARI GOOD MD , Vital Signs Date Time Vital Sign Value Performing Clinician Facility 03-15-2024 04:04-0500 Body temperature 98.42 [degF] Poncho Madisonmarypaco [facility] 03-15-2024 04:04-0500 Diastolic blood pressure 95 mm[Hg] Kristann Dokken [facility] 03-15-2024 04:04-0500 Heart rate 94 /min micky Madisonkkpaco [facility] 03-15-2024 04:04-0500 Respiratory rate 16 /min Poncho Madisonkken [facility] 03-15-2024 04:04-0500 SaO2% (BldA) [Mass fraction] 97 % micky Dokken [facility] 03-15-2024 04:04-0500 Systolic blood pressure 123 mm[Hg] tyroneinn Dokken [facility] 11-15-2023 12:56-0400 Blood Pressure Location Barby Victoriano [facility] 11-15-2023 12:56-0400 Body temperature 98.06 [degF] Barby Peraltaer [facility] 11-15-2023 12:56-0400 Diastolic blood pressure 82 mm[Hg] Barbychayo Peraltaer [facility] 11-15-2023 12:56-0400 Heart rate 82 /min Barbychayo Peraltaer [facility] 11-15-2023 12:56-0400 Respiratory rate 18 /min Barby Pastrana [facility] 11-15-2023 12:56-0400 SaO2% (BldA) [Mass fraction] 99 % Barby Pastrana [facility] 11-15-2023 12:56-0400 Systolic blood pressure 120 mm[Hg] Barby Pastrana [facility] 07-23-2023 10:31-0400 Blood Pressure Location Cristi Les [facility] 07-23-2023 10:31-0400 Body temperature 98.24 [degF] Cristi Les [facility] 07-23-2023 10:31-0400 Diastolic blood pressure 74 mm[Hg] Cristi Saldana [facility] 07-23-2023 10:31-0400 Heart rate 81 /min Cristi Saldana [facility] 07-23-2023 10:31-0400 SaO2% (BldA) [Mass fraction] 97 % Cristi Saldana [facility] 07-23-2023 10:31-0400 Systolic blood pressure 118 mm[Hg] Cristi Saldana [facility] 07-29-2021 18:50-0400 Body temperature 96.98 [degF] Mark Moffett [facility] 07-29-2021 18:50-0400 Diastolic blood pressure 58 mm[Hg] Mark Moffett [facility] 07-29-2021 18:50-0400 Heart rate 70 /min Mark Moffett [facility] 07-29-2021 18:50-0400 Respiratory rate 12 /min Mark Moffett [facility] 07-29-2021 18:50-0400 SaO2% (BldA) [Mass fraction] 99 % Mark Moffett [facility] 07-29-2021 18:50-0400 Systolic blood pressure 100 mm[Hg] Mark Moffett [facility] 07-29-2021 17:50-0400 Body temperature 97.52 [degF] Mark Moffett [facility] 07-29-2021 17:50-0400 Diastolic blood pressure 60 mm[Hg] Mark Moffett [facility] 07-29-2021 17:50-0400 Heart rate 70 /min Mark Moffett [facility] 07-29-2021 17:50-0400 Respiratory rate 12 /min Mark Moffett [facility] 07-29-2021 17:50-0400 SaO2% (BldA) [Mass fraction] 99 % Mark Moffett [facility] 07-29-2021 17:50-0400 Systolic blood pressure 110 mm[Hg] Mark Moffett [facility] 07-29-2021 17:49-0400 Body temperature 97.52 [degF] Mark Moffett [facility] 07-29-2021 17:49-0400 Diastolic blood pressure 79 mm[Hg] Mark Moffett [facility] 07-29-2021 17:49-0400 Heart rate 69 /min Mark Moffett [facility] 07-29-2021 17:49-0400 Respiratory rate 12 /min Mark Moffett [facility] 07-29-2021 17:49-0400 SaO2% (BldA) [Mass fraction] 99 % Mark Moffett [facility] 07-29-2021 17:49-0400 Systolic blood pressure 113 mm[Hg] Mark Moffett [facility] 07-29-2021 17:10-0400 Respiratory rate 24 /min Mark Moffett [facility] 07-29-2021 17:05-0400 Respiratory rate 24 /min Mark Moffett [facility] 07-29-2021 17:00-0400 Respiratory rate 27 /min Mark Moffett [facility] 07-29-2021 14:40-0400 Heart rate 72 /min Mark Moffett [facility] 07-29-2021 14:37-0400 Blood Pressure Location Mark Moffett [facility] 07-29-2021 14:37-0400 Mean blood pressure 93 mm[Hg] Mark Moffett [facility] 07-29-2021 14:37-0400 Blood Pressure Location Mark Moffett [facility] 07-29-2021 14:37-0400 Body temperature 98.24 [degF] Mark Moffett [facility] 07-29-2021 14:37-0400 BP/Pulse Patient Position Mark Moffett [facility] 07-29-2021 14:37-0400 Mean blood pressure 91 mm[Hg] Mark Moffett [facility] Encounters Encounter Date Encounter Type Care Provider Facility Start: 03-15-2024 End: 03-15-2024 Emergency department patient visit Poncho Sanchez [facility] Start: 03-03-2024 End: 03-03-2024 Bamboo flowsheet Nakul Clement DO Work Phone: [facility] Start: 03-03-2024 End: 03-05-2024 Bamboo flowsheet Nakul Clement DO Work Phone: [facility] Start: 03-03-2024 End: 03-05-2024 External Result Encounter Nakul Clement DO Work Phone: [facility] Unsolicited Start: 02-27-2024 End: 02-27-2024 ambulatory [facility] Facility:[facility] Start: 02-27-2024 End: 02-27-2024 Patient encounter procedure [facility] Start: 02-12-2024 End: 02-13-2024 Clinisync Result Encounter Nakul Clement DO Work Phone: [facility] Unsolicited Start: 02-12-2024 End: 02-13-2024 Clinisync Result Encounter Nakul Clement DO Work Phone: [facility] Unsolicited Start: 11-15-2023 End: 11-15-2023 ambulatory Barby Pastrana Facility:[facility] Start: 11-15-2023 End: 11-15-2023 Patient encounter procedure Barby Pastrana [facility] Start: 07-23-2023 End: 07-23-2023 Lab Drop off Cristi Saldana [facility] Start: 07-23-2023 End: 07-23-2023 ambulatory Cristi PalmaJonathan Velardeey Facility:[facility] Start: 07-23-2023 End: 07-23-2023 Patient encounter procedure Cristi PalmaJonathan Les [facility] Start: 06-19-2023 End: 06-19-2023 Phys/qhp telephone evaluation 5-10 min Nakul Clement DO Work Phone: [facility] Comment on above: Female infertility Start: 09-21-2021 End: 09-21-2021 Lab Drop off Steph Brady [facility] Start: 07-29-2021 End: 07-29-2021 Admission to same day surgery center Mark Moffett [facility] Start: 12-01-2016 End: 12-02-2016 Ambulatory VITHAL SHENDGE Facility:[facility] Start: 11-01-2016 End: 11-02-2016 Ambulatory DEFAULT PHYSICIAN Facility:[facility] Procedures Date Procedure Procedure Detail Performing Clinician Start: 03-03-2024 URETHRITIS/DISCHARGE PLUS VAGINITIS (HTRX) Nakul Clement DO Work Phone: Start: 02-12-2024 ALL CBC WITH AUTO DIFF Nakul Clement DO Work Phone: Start: 02-12-2024 BOX TEST Nakul Fazi o DO Work Phone: Start: 09-15-2016 left humerus ORIF Mark Moffett Appendectomy Mark Moffett Plan of Treatment Date Care Activity Detail Author Start: 03-31-2024 End: 03-31-2024 Patient encounter procedure 03/31/2024 4:00 PM EST Routine [facility] [address] [place] [address] Tamara Gould PA [address] [place] [address] [facility] Start: 03-26-2024 End: 03-26-2024 Professional / ancillary services management 03/26/2024 3:00 PM EST Ancillary Procedure [facility] [address] [place] [address] [facility] Start: 03-06-2024 End: 03-06-2024 Professional / ancillary services management 03/06/2024 12:30 PM EDT Ancillary Procedure [facility] [address] [place] [place] [address] [facility] Start: 03-03-2024 End: 03-03-2024 Patient encounter procedure [facility] Comment on above: Arrived Payers Date Payer Category Payer Unknown [id number] 1995 Unknown [id number] [id number] 1995 Unknown [id number] [id number] [id number] 1995 Unknown [id number] 2.16.8 [id number] 1995 Unknown [id number] 2.16.8 [id number] 1994 Unknown [id number] 2.16.8 [id number] 1995 Unknown [id number] 2.16.8 [id number] 1995 Unknown [id number] 2.16.8 [id number] Unknown [id number] Unknown Social History Date Type Detail Facility Start: 12-14-2020 End: 11-15-2023 Tobacco smoking status Never smoked tobacco (finding) [facility] Comment on above: patient denies Tobacco smoking status Never [facility] Comment on above: patient denies Sex Assigned At Female [facility] Tobacco smoking stat NHIS Tobacco smoking consumption unknown [facility] Start: 1995 Sex Assigned At Female [facility] Start: 01-09-2023 Gender identity Identifies as female gender (finding) [facility] Start: 01-09-2023 Sexual orientation Heterosexual (fin ding) [facility] Start: 12-18-2023 [facility] Goals Date Patient Goal Desired Activity /State Personal health goal Functional Status Date Assessment Result Facility 03-15-2024 Functional Status N/A [facility] 11-15-2023 Functional Status N/A [facility] 07-23-2023 Functional Status N/A [facility] Clinical Notes 07-29-2021 to 03-17-2024 Note Date & Type Note Facility 03-17-2024 Note Microbiology PROCEDURE: Cervical Culture [R1] SOURCE: Cerv BODY SITE: COLLECTED DATE/TIME: 03/15/2024 04:52 EST RECEIVED DATE/TIME: 03/15/2024 04:57 EST START DATE/TIME: 03/15/2024 04:57 EST FREE TEXT SOURCE: Poncho Sanchez DO, DO, Kaylinn A FINAL REPORTS Final Report [] Verified Date/Time: 03/17/2024 07:39 EST Scant growth of Escherichia coli 2+ Normal vaginal brian isolated STAINS Wet Prep Report [] Verified Date/Time: 03/15/2024 05:33 EST No Trichomonas vaginalis present No clue cells present No yeast seen SUSCEPTIBILITY RESULTS LEGEND: S=Susceptible, N/R=Not Reported, Blank=Data not available, or drug not advisable or tested, I=Intermediate, ESBL=Extended spectrum beta-lactamase, R=Resistant, TFG=Thymidine-dependent strain, MAGGIE=Beta-lactamase positive, MYRA=mcg/m;(mg/L), S*=Predicted susceptible interp, R*=Predicted resistant interp EC Antibiotic MYRA Dilutn MYRA Interp Ampicillin >16 R Ampicillin/ 16/8 I Sulbactam Aztreonam <=4 S Cefazolin 8 S Cefepime <=2 S Ceftazidime <=1 S Ceftazidime/ <=8 S Avibactam Ceftriaxone <=1 S Cefuroxime <=4 S Ciprofloxacin <=0.25 S Ertapenem <=0.5 S Gentamicin <=2 S Levofloxacin <=0.5 S Meropenem <=1 S Piperacillin/ <=8 S Tazobactam Tetracycline <=4 S Tobramycin <=2 S Trimethoprim/ <=2/38 S Sulfa Performing Locations R1: This test was performed at: [facility], [address] [place] [address], [id number] , , [facility] Comment on above: Performed By: #### 1 [id number] #### [facility] [address] [place], [place] [address] [address] 03-15-2024 Evaluation + Plan note Extrac hernesto from: Title:ED Note Author:Socorropaco MADISON Josiemicky Norris Date :03/15/24 Vaginal bleeding in pregnanc y (O46.90: Antepartum hemorrhage, unspecified, unspecified trimester) Orders: Beta hCG Quantitative Cervical Culture Extra Lav Tube Extra SST Tube UA with Cult Rflx US After 1st Trimester Addendum by uAgie Boyd DO on March 15, 2024 08:03:55 EST Patient signed out to me by the prior physician I did review full workup. The emergency department. Ultrasound is negative showing single live intrauterine . Urine test is negative. Patient states that she is a positive blood type. Ultimately she is discharged home to follow-up with her TRAINING TECHNICIAN physician educated on return precautions. Additional diagnosis: Threatened [facility] 11-09-2024 Hospital Discharge instructions Follow Up Care 03/15/2024 04:00:46 With:Nakul VAUGHAN Address: [address] , [place] [address]- Business (1) When:03/18/2024 08:03:16 With:Dave Red Address: [address] [place] [id number]- Business (1) When:Within 3 Day(s) [facility] 07-11-2024 Hospital Discharge instructions Patient Education 11/15/2023 13:24:19 [...] This is recommended for women who are orwho want to become . Read labels and [...] of solid fats such as butter, stick margarine,or cream cheese. Limit pre-made sauces, mixes, and [...] soapy water. ?Keep raw meats separate from iyzcg-jc-eoi foods, such as fruits and vegetables. ?decorating supervisor, meat, poultry, and eggs to the recommended [...] 8 large strawberries, 1 cup canned fruit, cupdried fruit, or 1 cup 100% juice. Vegetables [...] whole grains each day. Examples of 1 ounce- equivalent of grains include 1 slice of bread, 1 cup gisak-is-nop cereal, 3 cups popcorn, or cup cooked rice, pasta, or cereal. Meats and other proteins Aim to eat 5 6 ounce-equivalents of protein each day. Examples of 1 ounce- equivalent of protein include 1 egg, 1/2 cup [...] dairy each day. Examples of 1 cup-equivalent ofdairy include 1 cup (240 mL) milk, 8 [...] the right portions of a variety of nutrient- rich foods. Try baking, boiling, grilling, or broiling instead of frying. Choose healthy options in all settings, including home, work, school, restaurants, or stores. This information is not intended to replace advice given to you by your health care provider. Make sure you discuss any questions you have with your health care provider. Document Revised: 12/20/2021 Document Reviewed: 12/20/2021 [employer] Patient Education 2022 [employer] 11/15/2023 13:24:01 Exercising to Lose Weight Exercising to Lose Weight Getting regular exercise is important for everyone. It is especially important if you are overweight. Being overweight increases your risk of heart disease, stroke, diabetes, high blood pressure, andseveral types of cancer. Exercising, and reducing the [...] of moderate-intensity exercise a week to maintain theirbody weight. Vigorous-intensity exercise Vigorous-intensity exercise is any [...] you need and what types of activities aresafe for you. Nutrition Make changes to your diet as told by your health care provider or diet and water treatment specialist (dietitian). This may include: ?Eating fewer calories. ?Eating more protein. ?Eating less unhealthy fats. ?Eating a diet that includes fresh fruits and vegetables, whole grains, low-fat dairy products, andlean protein. ?Avoiding foods with added fat, salt, [...] provider. Document Revised: 06/19/2021 Document Reviewed: 06/19/2021 [employer] Patient Education 2022 [employer]. 11/15/2023 13:23:59 BMI for Adults BMI for Adults What is BMI? Body mass index (BMI) is a number that is calculated from a person's weight and height. BMI can help estimate how much of a person's weight is composed of fat. BMI does not measure body fat directly.Rather, it is an alternative to procedures that [...] your height. Both height and weight are measured,and the BMI is calculated from those numbers. This can be done either in [place]e ([place] or metric measurements. Note that charts and online BMI calculators are available to help you find your BMI quickly and easily without having to do these calculations yourself. To calculate your BMI in [place]e ([place] measurements: 1.Measure your weight in pounds [...] inches squared measurement is 70 inches x 70inches, which equals 4,900 inches squared. 4.Divide the [...] muscular build, such as an athlete, may havea BMI that is higher than 24.9. In cases like these, BMI is not an accurate measure of body fat. To determine if excess body fat is the cause of a BMI of 25 or higher, further assessments may needto be done by a health care provider. BMI is usually interpreted in the same way for men and women. Where to find more information For more information about BMI, including tools to quickly calculate your BMI, go to these websites: Centers for Disease Control and Prevention: www.cdc.gov Scottish Heart Association: www.heart.org National Heart, Lung, and Blood [place]: www.nhlbi.nih.gov Summary Body mass index (BMI) is a number that is calculated from a person's weight and height. BMI may help estimate how much of a person's weight is composed of fat. BMI can help identify thosewho may be at higher risk for certain medical problems. BMI can be measured using Nepalese measurements or metric measurements. BMI charts are used to identify whether you are underweight, normal weight, overweight, or obese. This information is not intended to replace advice given to you by your health care provider. Make sure you discuss any questions you have with your health care provider. Document Revised: 01/14/2020 Document Reviewed: 11/21/2019 [employer] Patient Education 2022 [employer]. 11/15/2023 13:23:56 How to Use Cold Therapy, Nrts-zr-Giey How to Use Cold Therapy Cold therapy, [...] conditions. Do not use it without talking toyour doctor if you have: A heart condition. [...] provider. Document Revised: 03/09/2021 Document Reviewed: 03/09/2021 [employer] Patient Education 2022 [employer]. 11/15/2023 13:23:47 Hand Pain Hand Pain Many [...] discomfort: Managing pain, stiffness, and swelling Take ecbx-oqp-oopczqf and prescription medicines only as told by [...] provider. Document Revised: 08/10/2022 Document Reviewed: 08/11/2021 [employer] Patient Education 2022 [employer]. Follow Up Care 11/15/2023 10:03:53 With:Teofilo BRANDT, Dave Rosen [facility] Address: [address] [place] [id number]- When: Unknown [facility] 07-11-2024 NotePatient Education Nutrition Healthy Eating Following a healthy [...] high-fructose corn syrup, honey, invert sugar, lactose, maltsyrup, maltose, molasses, raw sugar, sucrose, trehalose, or [...] water. ? Keep raw meats separate from jgqyy-kh-twf foods, such as fruits and vegetables. ? decorating supervisor, meat, poultry, and eggs to the recommended [...] whole grains each day. Examples of 1 ounce- equivalent of grains include 1 slice of bread, 1 cup pvuvw-qn-lfo cereal, 3 cups popcorn, or ? cup cooked rice, pasta, or cereal. Meats and other proteins Aim to eat 5?6 ounce-equivalents of protein each day. Examples of 1 ounce- equivalent of protein include 1 egg, 1/2 cup [...] dairy each day. Examples of 1 cup-equivalent ofdairy include 1 cup (240 mL) milk, 8 ounces (250 g) yogurt, 1? ounces (44 g) natural cheese, or 1 cup (240 mL) fortified soy milk. Fats and oils ? Aim for about 5 teas (more content not included)...[facility] 07-23-2023 Evaluation + Plan note Diagnostic Tests Pending * Urine Culture 07/23/23 [facility]03-18-2024 Hospital Discharge instructions Patient Education 07/23/2023 11:05:58 Urinary Frequency, [...] to keep your urine pale yellow. ?Take noxj-rpx-ikqpgtj or prescription medicines. ?Eat foods that are high in fiber, such as beans, whole grains, and fresh fruits and vegetables. ?Limit foods that are high in fat and processed sugars, such as fried or sweet foods. General instructions Take ybuw-dbl-nutsnwp and prescription medicines only as told by [...] the muscles that help control urination. Take rnpn-uqv-kvomlkd and prescription medicines only as told by your health care provider. Contact a health care provider if your symptoms do not improve or get worse. This information is not intended to replace advice given to you by your health care provider. Make sure you discuss any questions you have with your health care provider. Document Revised: 11/26/2020 Document Reviewed: 11/26/2020 [employer] Patient Education 2022 [employer]. 07/23/2023 10:36:54 BMI for Adults BMI for Adults What is BMI? Body mass index (BMI) is a number that is calculated from a person's weight and height. BMI can help estimate how much of a person's weight is composed of fat. BMI does not measure body fat directly.Rather, it is an alternative to procedures that [...] your height. Both height and weight are measured,and the BMI is calculated from those numbers. This can be done either in Nepalese ([place] or metric measurements. Note that charts and online BMI calculators are available to help you find your BMI quickly and easily without having to do these calculations yourself. To calculate your BMI in [place]alese ([place] measurements: 1.Measure your weight in pounds [...] inches squared measurement is 70 inches x 70inches, which equals 4,900 inches squared. 4.Divide the [...] muscular build, such as an athlete, may havea BMI that is higher than 24.9. In cases like these, BMI is not an accurate measure of body fat. To determine if excess body fat is the cause of a BMI of 25 or higher, further assessments may needto be done by a health care provider. BMI is usually interpreted in the same way for men and women. Where to find more information For more information about BMI, including tools to quickly calculate your BMI, go to these websites: Centers for Disease Control and Prevention: www.cdc.gov Scottish Heart Association: www.heart.org National Heart, Lung, and Blood [place]: www.nhlbi.nih.gov Summary Body mass index (BMI) is a number that is calculated from a person's weight and height. BMI may help estimate how much of a person's weight is composed of fat. BMI can help identify thosewho may be at higher risk for certain medical problems. BMI can be measured using Nepalese measurements or metric measurements. BMI charts are used to identify whether you are underweight, normal weight, overweight, or obese. This information is not intended to replace advice given to you by your health care provider. Make sure you discuss any questions you have with your health care provider. Document Revised: 01/14/2020 Document Reviewed: 11/21/2019 [employer] Patient Education 2022 [employer]. Follow Up Care 07/23/2023 09:05:39 With:Teofilo BRANDT, Dave Rosen [facility] Address: [address] [place], [place] [id number]- When: Unknown [facility] 02-13-2024 History of Present illness Narrative* Nakul Vaughan DO - 06/19/2023 8:10 AM EST Reason for Appointment: Patient ID: Racquel Yadav is a 27 y.o. female who presents for TELEHEALTH FOLLOW UP and Infertility Patient presents today via telephone call for a telehealth appointment. Patients Phone #: [phone] (mobile) Current Medications: has a current medication [...] of: Nakul Vaughan DO [id number] Discharge instructions Patient Education 07/29/2021 17:20:52 TRAINING TECHNICIAN - Post D&C, Hysteroscopy, LEEP or Essure/Laparoscopy [...] a week and up to ten days aftersurgery. This is normal. If you are soaking a pad an hour or more frequently you need to call your doctor. Your first period may not be normal, but most women resume their normal cycles within a month or two. It is helpful for your doctor if you keep a written record of your bleeding following surgery. Whenabnormal bleeding persists for 2-3 cycles, please bring [...] Up Care 07/12/2021 14:08:06 With:Mark Moffett Address: [address] [place] [address], [address] [address]- Business (1) When:2 weeks Comments:Call for any problems. [facility] No data available for this section [facility]* Diagnosis Female infertility Female infertility of unspecified origin documented [facility] this [facility] No data available for this section [facility] No data available for this section [facility] Summary Purpose Family History No Family History Records FoundNo Family History Records Found No data available for this section No data available for this section No data available for this section No data available for this section No data available for this section No data available for this section No Family History Records FoundNo Family History [...] section and content) DATE CREATED AUTHOR 10/31/2017 [facility] DATE CREATED AUTHOR AUTHOR'S ORGANIZ ATION 06/10/2020 [employer] DATE CREATED AUTHOR AUTHOR'S ORGANIZ ATION 03/17/2024 [facility] DATE CREATED AUTHOR AUTHOR'S ORGANIZ ATION 03/20/2024 [facility] Reason for Visit (unrecogniz ed section and content) Reason Comments TELEHEALTH FOLLOW UP Infertility Patient Care team informatio n (unrecognized section and content) Personnel Name: Dave Red MD Address: Address: [address] [place] [address] Personnel Name: Dave Red MD Address: Address: [address] [place] [address] Personnel Name: Dave Red MD Address: Address: [address] [place] [address] Personnel Name: Dave Red MD Address: Address: [address] [place] [address] Personnel Name: Dave Red MD Address: Address: [address] [place] [address] Personnel Name: Dave Red MD Address: Address: [address] [place] [address] FOR RECORDS PERTAINING TO PATIENTS WHO ARE [...] BE BASED ON THE PRIMARY CLINICAL RECORDS. [employer] [facility]. provides no warranty or guarantee of the accuracy or completeness of information in this document.
== END 2024-03-26 15:11 | disposition home or self-care (01) ==
LOC: NOMS 15:11
PROVIDERS: Visit Provider Obstetrics & Gynecology
DX: O34.42 Maternal care for other abnormalities of cervix, second trimester (principal); Z98.890 Other specified postprocedural states; Z3A.16 16 weeks gestation of pregnancy
CPT/HCPCS: 76817

== ENCOUNTER 2024-04-22 09:19 | Outpatient (OUT) | payer SELFPAY ==
--- NOTE | 2024-04-22 09:26 | US_ITS ---
[address] [address] Patient Name: RACQUEL GRAHAM MRN: [id number] date: 1995 Sex: F Assigned Patient Location: US Current Patient Location: US Accession/Order Number: [id number] Exam Date: 04/22/2024 09:30 Report Date: 04/22/2024 10:51 At the request of: TAMIKA ROSARIO Procedure: US OB anatomy EXAMINATION: US OB anatomy, US OB cervical length HISTORY: Anatomic Survey COMPARISON: No relevant comparison available. TECHNIQUE: Transabdominal sonographic examination was performed for obstetrical and evaluation. FINDINGS: Number: 1 Heart Rate: 139.90 bpm H.B. /min Amniotic Fluid Volume: Subjectively normal position: Breech presentation, longitudinal lie Placental Location: Anterior fundal, grade 0. The placental edge is 5.6 cm from the internal cervical os Cervix Length: 4.08 cm , closed Normal anatomy: Lateral ventricles, cerebellum, posterior fossa, nose, lips, orbits, four-chamber heart, RVOT, LVOT, diaphragm, stomach, abdominal cord insertion, bladder, umbilical arteries, spine, extremities Nonvisualization: Kidneys, three-vessel cord BIOMETRY: BPD: 4.38 cm; 19 weeks 2 days; 20.30 % HC: 16.38 cm; 19 weeks 1 day; 9.70 % AC: 15.09 cm; 20 weeks 2 days; 55.50 % FL: 2.87 cm; 18 weeks 6 days; 9.10 % EFW:299.88 g; 23 %, 11 ounces FL/AC: 19.02 FL/BPD: 65.50 HC/AC: 1.09 GESTATIONAL AGE: Age by EDC: 20 weeks 0 days BINDU by EDC: 2024-09-09 Age by current US: 19 weeks 3 days BINDU by current US: 2024-09-13 US/US OB anatomy IMPRESSION: Nonvisualization of the kidneys and three-vessel cord Otherwise normal anatomy scan Closed cervix measuring 4.1 cm normal *Reference: [employer] Practice Guideline for the performance of Obstetric Ultrasound Examinations, February 04, 2007. Electronically authenticated by: RUSSELL ULRICH Date: 04/22/2024 10:51
--- NOTE | 2024-04-22 09:26 | US_ITS ---
[address] [address] Patient Name: RACQUEL GRAHAM MRN: [id number] date: 1995 Sex: F Assigned Patient Location: US Current Patient Location: US Accession/Order Number: [id number] Exam Date: 04/22/2024 09:30 Report Date: 04/22/2024 10:51 At the request of: TAMIKA ROSARIO Procedure: US OB cervical length EXAMINATION: US OB anatomy, US OB cervical length HISTORY: Anatomic Survey COMPARISON: No relevant comparison available. TECHNIQUE: Transabdominal sonographic examination was performed for obstetrical and evaluation. FINDINGS: Number: 1 Heart Rate: 139.90 bpm H.B. /min Amniotic Fluid Volume: Subjectively normal position: Breech presentation, longitudinal lie Placental Location: Anterior fundal, grade 0. The placental edge is 5.6 cm from the internal cervical os Cervix Length: 4.08 cm , closed Normal anatomy: Lateral ventricles, cerebellum, posterior fossa, nose, lips, orbits, four-chamber heart, RVOT, LVOT, diaphragm, stomach, abdominal cord insertion, bladder, umbilical arteries, spine, extremities Nonvisualization: Kidneys, three-vessel cord BIOMETRY: BPD: 4.38 cm; 19 weeks 2 days; 20.30 % HC: 16.38 cm; 19 weeks 1 day; 9.70 % AC: 15.09 cm; 20 weeks 2 days; 55.50 % FL: 2.87 cm; 18 weeks 6 days; 9.10 % EFW:299.88 g; 23 %, 11 ounces FL/AC: 19.02 FL/BPD: 65.50 HC/AC: 1.09 GESTATIONAL AGE: Age by EDC: 20 weeks 0 days BINDU by EDC: 2024-09-09 Age by current US: 19 weeks 3 days BINDU by current US: 2024-09-13 US/US OB cervical length IMPRESSION: Nonvisualization of the kidneys and three-vessel cord Otherwise normal anatomy scan Closed cervix measuring 4.1 cm normal *Reference: [facility] Practice Guideline for the performance of Obstetric Ultrasound Examinations, February 04, 2007. Electronically authenticated by: RUSSELL ULRICH Date: 04/22/2024 10:51
--- OUTSIDE RECORDS SUMMARY | 2024-04-22 09:41 | XMS_ITS | CCD ---
Author Organization [facility] Care Team Providers Care Archivist Name Role Phone PHYSICIAN, DEFAULT Unavailable Unavailable PHYSICIAN, DEFAULT Unavailable Unavailable SHENDGE, VITHAL Unavailable Unavailable SHENDGE, VITHAL Unavailable Unavailable SELF, REFERRED Unavailable Unavailable SELF, REFERRED Unavailable Unavailable Dave Red Primary Care Physician [phone] Unavailable Primary Care Provider UnavailCristi Hannah Attending [...] Medication Allergies] Propensity to adverse reactions (disorder) [facility] Repository Medications Current Medications Medication Drug Class(es) Dates Sig (Normalized) Sig (Original) ibuprofen 600 mg oral tablet (2 sources) Nonsteroidal Anti-inflammatory Drug Start: 07-30-19 take 1 tablet by mouth every six hours ibuprofen 600 mg Tab 600 mg = 1 tab(s), Oral, q6hr, # 10 tab(s), Refills(s) 0, Pharmacy: [facility], 164, cm, 07/20/21 5:00:00 EDT, Height/Length Dosing, 79.7, kg, 07/20/21 5:00:00 EDT, Weight Dosing Start Date: 07/29/21 Status: Ordered letrozole 2.5 mg oral tablet (6 sources) Aromatase Inhibitor Start: 07-23-19 24 letrozole 2.5 mg Tab Refills(s) 0 Start [...] meals. 30 tablet 11 02/13/2023 02/13/2024 Active promethazine hydrochloride 12.5 mg oral tablet (7 sources) Phenothiazine Start: 02-12-20 take 1 tablet [...] for nausea. 30 tablet 2 02/12/2024 Active Completed/Discontinued Medications Medication Drug Class(es) Dates Sig (Normalized) Sig (Original) cephalexin 500 mg oral capsule (3 sources) Cephalosporin Antibacterial Start: 03-03-2024 End: 03-10-2024 take 1 capsule by mouth in the [...] for 7 days. 21 capsule 03/03/2024 03/10/2024 nitrofurantoin, macrocrystals 25 mg / nitrofurantoin, monohydrate 75 mg oral capsule (2 sources) Nitrofuran Antibacterial Start: 02-19-2024 End: 03-03-2024 take 1 capsule by mouth in the morning nitrofurantoin, macrocrystal-monohy drate, (Macrobid) 100 MG capsule Indications: Bacteria in urine Take 1 capsule (100 mg) by mouth in the morning and 1 capsule (100 mg) before bedtime. Do all this for 7 days. 14 capsule 02/19/2024 03/03/2024 Discontinued (Therapy completed) ondansetron 4 mg disintegrating oral tablet (11 sources) Serotonin-3 Receptor Antagonist Start: 02-11-2024 End: 03-26-2024 take 1 tablet by mouth every six hours for nausea ondansetron ODT (Zofran-ODT) 4 MG disintegrating tablet Indications: Nausea and vomiting in Take 1 tablet (4 mg) by mouth every 6 (six) hours if needed for nausea or vomiting 30 tablet 2 02/25/2024 03/26/2024 terconazole 4 mg/ml vaginal cream (6 sources) Azole Antifungal Start: 02-25-2024 End: 03-10-2024 terconazole (Terazol 7) 0.4 % vaginal cream Indications: Vaginal discharge during , antepartum Insert 1 applicator into the vagina at bedtime for 7 days 45 g 03/03/2024 03/10/2024 Problems Active Problems Problem Classification Problem Date [...] sources) Major depressive disorder 09-20-2018 Chronic Other complications of (2 sources) Complication of , childbirth and/or the puerperium; Translations: [Other specified related conditions, unspecified trimester] 03-19-2024 Episodic Other complications of (2 sources) Vaginal discharge; Translations: [Other specified related conditions, unspecified trimester] 03-03-2024 Episodic Other complications of (2 sources) Previous operation to cervix affecting ; Translations: [Maternal care for other abnormalities of cervix, unspecified trimester] 03-03-2024 Episodic Other connective tissue disease (1 source) Hand [...] index (BMI) 32.0-32.9, adult] Onset: 07-23-2023 Chronic Other and delivery including normal (2 sources) First trimester ; Translations: [Encounter for supervision of normal , unspecified, first trimester] 03-03-2024 Episodic Other screening for suspected conditions (not mental disorders or infectious disease) (2 sources) Patient encounter status; Translations: [Encounter for screening for cervical length] 03-03-2024 Episodic Residual codes; unclassified (1 source) Past history of procedure; Translations: [Other specified postprocedural states] Onset: 07-29-2021 Episodic Residual codes; unclassified (2 sources) Gestation period, 12 weeks; Translations: [12 weeks gestation of ] 03-03-2024 Episodic Substance-related disorders (8 sources) Smoker 07-19-2021 Chronic Comment on above: Added secondary to d ocumentation in Social History. Unclassified (2 sources) Unknown / UNK(Unknown) Onset: 12-01-2016 Unclassified (5 sources) OB Reminders Onset: 03-03-2024 03-03-2024 Past or [...] Test Name Value Interpretation Reference [place] [facility] [place] 03-15-2024 [place] [address] m[IU]/mL High 1-3 F [facility] Comment on above: Result Comment: 'F N ON < 1 - 3' ' 0.2 - 1 WEEK = 5 TO 50' ' 1 - 2 WEEKS = 50 - 500' ' 2 - 3 WEEKS = 100 - 5000' ' 3 - 4 WEEKS = 500 - 27075' ' 4 - 5 WEEKS = 1000 - 01927' ' 5 - 6 WEEKS = 11399 - 527865' ' 6 - 8 WEEKS = 76426 - 516355' ' 8 - 12 WEEKS = 38300 - 064433' Performed By: #### 2 [id number] #### [facility] [address] [place] [address] CHEMISTRYOrdered By: SYSTEM SYSTEM on 03-15-2024 [place] [address] m[IU]/mL High 1 - 3 mIU/mL [facility] Comment on above: Result Comment: 'F N ON < 1 - 3' ' 0.2 - 1 WEEK = 5 TO 50' ' 1 - 2 WEEKS = 50 - 500' ' 2 - 3 WEEKS = 100 - 5000' ' 3 - 4 WEEKS = 500 - 18586' ' 4 - 5 WEEKS = 1000 - 31889' ' 5 - 6 WEEKS = 25142 - 844063' ' 6 - 8 WEEKS = 60088 - 102489' ' 8 - 12 WEEKS = 66805 - 319755' ED Clinical Summaryon 2023 ED Clinical Summary ED Clinical Summary [address] [address] ED Clinical Summary Person Information Name: RACQUEL YADAV [place] Age: 28 Years : 1995 Sex: Female Language: Lithuanian PCP: Dave Red MD Marital Status: Phone: [...] 03/15/2024 08:09:45 03/15/2024 08:09:45 03/15/2024 08:09:45 ADDRESS: [address] [place] [id number] PHYS DOC NOTES: Addendum by Augie Boyd DO on March 15, 2024 08:03:55 EST MEDICAL INFORMATION: Prescriptions Given: Medications to Continue with No Changes Other Medications letrozole (letrozole 2.5 mg Tab) medroxyPROGESTERone (medroxyPROGESTERone 10 mg Tab) PATIENT EDUCATION INFORMATION: Instructions: Follow up: With: Address: When: Nakul VAUGHAN [facility]ly [facility], 1929–[address], [address] [place] [address] [place] [address] Business (1) In 3 days 03/18/2024 With: Address: When: Dave Red [address] [place] [address] [place] [employer] (1) In 3 days DIAGNOSIS: Threatened ; Vaginal bleeding in Normal [facility] ED Note-Physicianon 03-15-20 24 ED Note-Physician ED [...] and Complexity of Problems Differential Diagnosis: [] [facility] Data External documents reviewed: [] My EKG [...] 09/20/2018 Employment/School Employed, Work/School description: Works at [employer]. Previous employment/school: Student. Activity level: Occasional physical [...] of lifetime (more content not included)... [facility] Comment on above: Result Comment: Elec tronically Signed By: Augie Boyd DO\.br\Date and Time Signed: 03/15/24 08:04 EST ED [...] and Complexity of Problems Differential Diagnosis: [] [facility] Data External documents reviewed: [] My EKG [...] 09/20/2018 Employment/School Employed, Work/School description: Works at [employer]. Previous employment/school: Student. Activity level: Occasional physical [...] of lifetime (more content not included)... [facility] Comment on above: Result Comment: Elec tronically Signed By: Poncho Sanchez DO\.br\Date and Time Signed: 03/15/24 06:45 EST ED Patient Education Noteon 03-15-2024 ED Patient Education Note ED Patient Education Note [facility] ED Patient Summaryon 024 ED Patient Summary ED Patient Summary [address] [address] Patient Discharge Instructions Person Information Name: RACQUEL YADAV Age: 28 Years Arrival Date: 03/15/2024 03:59:56 Discharge Diagnosis: Threatened ; Vaginal bleeding in Primary Care Physician: Dave Red MD Provider Information Primary Provider: Poncho Sanchez DO [employer] Cutter:None The exam and treatment you received in the Emergency Department were for an urgent problem and are not intended as complete care. It is important that you follow up with a doctor, nurse practitioner, or physician???s retail loan originator assistant for ongoing care. If your symptoms become worse or you do not improve as expected and you are unable to reach your usual health care provider, you should return to the Emergency Department. We are available 24 hours a day. GLADYS RACQUEL M has been given the following list of patient education materials, prescriptions and follow-up instructions: Follow-up Instructions: With: Address: When: Nakul VAUGHAN [facility], 1929[address], [address] [place] [address] [place] [address] Business (1) In 3 days 03/18/2024 With: Address: When: Dave Red [address] [place] [address] Business (1) In 3 days In the event that this physician does not participate in your insurance network, please consult with your insurance company to find a nearby participating provider. Patient Education Materials: A MESSAGE TO ALL PATIENTS REGARDING OPIOIDS PRESCRIPTION OPIOIDS: WHAT YOU NEED TO KNOW Prescription opioids can be used to help relieve eupmydbo-mx-ziwmkd pain and are often prescribed following a [...] about t (more content not included)... [facility] Extra Blueon 03-15-2024 Tube Collected Plasma Yes Invalid Interpretation Code [facility] Comment on above: Performed By: #### 1 [id number] #### [facility] [address] [place] [address] Extra Tolono 03-15-2024 WB Tube Collected Yes Invalid Interpretation Code [facility] Comment on above: Performed By: #### 1 [id number] #### [facility] [address] [place] [address] No Panel InformationOrdered By: Stephanie Acevedo on 03-15-2024 WP No Trichomonas vaginalis present No clue cells present No yeast seen [facility] UA with Cult Rflxon 03-15-20 24 Bilirubin Ql (U) Negative Normal Negative [facility] Comment on above: Performed By: #### 4 [id number] #### [facility] [address] [place] [address] Clarity (U) Clear Normal Clear [facility] Comment on above: Performed By: #### 4 [id number] #### [facility] [address] [place] [address] Color (U) Light-Yellow Normal Yellow [facility] Comment on above: Result Comment: Micr oscopic readings are only performed on those samples that meet specific criteria set forth by [facility]. Performed By: #### 4 [id number] #### [facility] [address] [place] [address] Glucose Ql (U) Negative Normal Negative [facility] Comment on above: Performed By: #### 4 [id number] #### [facility] [address] [place] [address] Hemoglobin Auto test strip (U) [Mass/Vol] Trace Abnormal Negative [facility] Comment on above: Performed By: #### 4 [id number] #### [facility] [address] [place] [address] Ketones Auto test strip Ql (U) 1+ mg/dL Abnormal Negative [facility] Comment on above: Performed By: #### 4 [id number] #### [facility] [address] [place] [address] Leukocyte esterase Auto test strip Ql (U) Negative Normal Negative [facility] Comment on above: Performed By: #### 4 [id number] #### [facility] [address] [place] [address] Nitrite Auto test strip Ql (U) Negative Normal Negative [facility] Comment on above: Performed By: #### 4 [id number] #### [facility] [address] [place] [address] pH (U) 5.5 [pH] Invalid Interpretation Code 5.0-9.0 [facility] Comment on above: Performed By: #### 4 [id number] #### [facility] [address] [place] [address] Protein Ql (U) Negative Normal Negative [facility] Comment on above: Performed By: #### 4 [id number] #### [facility] [address] [place] [address] Specific gravity (U) [Rel density] 1.015 Invalid Interpretation Code 1.005-1.030 [facility] Comment on above: Performed By: #### 4 [id number] #### [facility] [address] [place] [address] Urobilinogen (U) [Mass/Vol] Negative Normal Negative [facility] Comment on above: Performed By: #### 4 [id number] #### [facility] [address] [place] [address] Type of Urine collection method Clean Catch Normal [facility] Comment on above: Performed By: #### 4 [id number] #### [facility] [address] [address] URINALYSISOrdered By: SYSTEM SYSTEM on 03-15-2024 Bilirubin Ql (U) Negative Normal Negativemg/ d L [facility] UA Auto SS Clarity (U) Clear (03/15/24 4:39 AM) Normal Clear [facility] UA Auto SS Color (U) Light-Yellow 1 (03/15/24 4:39 AM) Normal Yellow [facility] UA Auto SS Comment on above: Interpretive Data: M icroscopic readings are only performed on those samples that meet specific criteria set forth by [facility]. Glucose Ql (U) Negative Normal Negativemg/d L [facility] UA Auto SS Hemoglobin Auto test strip (U) [Mass/Vol] Trace mg/dL Invalid Interpretation Code Negativemg/d L [facility] UA Auto SS Ketones Auto test strip [...] AM) Invalid Interpretation Code 1.005 - 1.030 [facility] [place] Auto SS Urobilinogen (U) [Mass/Vol] Negative Normal Negativemg/d L [facility] UA Auto SS URINALYSISOrdered By: Kristan Sanchez on 03-15-2024 UA Spec Desc Clean Catch (03/15/24 4:39 AM) Normal [facility] UA Auto SS US Limitedon 03-15 US Limited Exam Date/Time: 03/15/2024 07:59 EST Reason [...] (bpm) 135 Cervical Length (cm) 3.5 Normal [facility] URETHRITIS/DISCHARGE PLUS VA GINITIS (HTRX)on 03-05-2024 ATOPOBIUM VAGINAE 0 [facility] ATOPOBIUM VAGINAE Not detected [facility] BVAB 2,3 (BACTERIAL VAGINOSIS ASSOCIATED BACTERIA 2, 3); MOBILUNCUS SPP 0 [facility] BVAB 2,3 (BACTERIAL VAGINOSIS ASSOCIATED BACTERIA 2, 3); MOBILUNCUS SPP Not detected [facility] MINERVA ALBICANS, PARAPSILOSIS, TROPICALIS 0 [facility] MINERVA ALBICANS, PARAPSILOSIS, TROPICALIS Not detected [facility] MINERVA GLABRATA 0 [facility] MINERVA GLABRATA Not detected [facility] MINERVA KRUSEI 0 [facility] MINERVA KRUSEI Not detected [facility] CHLAMYDIA TRACHOMATIS 0 [facility] CHLAMYDIA TRACHOMATIS Not detected [facility] GARDNERELLA VAGINALIS 0 [facility] GARDNERELLA VAGINALIS Not detected [facility] MEGASPHAERA (TYPES 1, 2) 0 [facility] MEGASPHAERA (TYPES 1, 2) Not detected [facility] MYCOPLASMA GENITALIUM 0 [facility] MYCOPLASMA GENITALIUM Not detected [facility] NEISSERIA GONORRHOEAE 0 [facility] NEISSERIA GONORRHOEAE Not detected [facility] TRICHOMONAS VAGINALIS 0 [facility] TRICHOMONAS VAGINALIS Not detected N [facility] Urinalysis macro (dipstick) panel (U)on 03-03-2024 Bilirubin, UA Negative Negative - 4(70) +++ mg/dL [facility] Blood, UA Positive Negative - 50 Moncho/mcL [facility] Comment on above: trace Clarity, UA Clear [facility] Color, UA Yellow [facility] Glucose, UA Positive Negative - 1999(110) ++++ mg/dL [facility] Comment on above: 250 mg Interpretation and review of laboratory results Abnormal [facility] Ketones, UA Negative Negative - 160(16) ++++ mg/dL [facility] Leukocytes, UA Negative Negative - 500+++ Bhavik/mcL [facility] Nitrite, UA Negative Negative - Positive [facility] pH, UA 5.5 5 - 9 [facility] Protein, UA Negative Negative - 2000(20) ++++ mg/dL [facility] Spec Grav, UA 1.015 1 - 1.03 [facility] Urobilinogen, UA 0.2 0.2 - 12 mg/dL [facility] ALL CBC WITH AUTO DIFFon BASOPHILS ABSOLUTE AUTO 0.1 [facility] Basophils/100 WBC (Bld) 0.4 % 0.2 - 2.0 % [facility] Eosinophils/100 WBC (Bld) 1.5 % 0.9 - 7.0 % [facility] Erythrocyte distribution width (RBC) [Ratio] 12.4 % 11.0 - 15.0 % [facility] Hematocrit (Bld) [Volume fraction] 38.9 % 36.0 - 48.0 % [facility] Hemoglobin (Bld) [Mass/Vol] 13.2 g/dL 12.0 - 16.0 g/dL [facility] IMMATURE GRANULOCYTES ABS AUTO 0.05 High [facility] Immature granulocytes/100 WBC (Bld) 0.4 % 0.0 - 0.5 % [facility] Interpretation and review of laboratory results Abnormal [facility] LYMPHOCYTES ABSOLUTE AUTO 3.4 [facility] Lymphocytes/100 WBC (Bld) 23.8 % 20.5 - 60.0 % [facility] MCH (RBC) [Entitic mass] 29.9 pg 26.7 - 34.0 pg [facility] MCHC (RBC) [Mass/Vol] 33.9 g/dL 29.9 - 35.2 g/dL [facility] MCV (RBC) [Entitic vol] 88.2 fL 81.0 - 99.0 fL [facility] MONOCYTES ABSOLUTE AUTO 0.8 [facility] Monocytes/100 WBC (Bld) 5.7 % 1.7 - 12.0 % [facility] NEUTROPHILS ABSOLUTE AUTO 9.7 High [facility] Neutrophils/100 WBC (Bld) 68.2 % 43.0 - 75.0 % [facility] Platelet mean volume (Bld) [Entitic vol] 9.4 fL Low 9.5 - 13.5 fL [facility] TBH EO # 0.2 [facility]H PLT 326 [facility] TB RBC 4.41 [facility]H WBC 14.1 High [facility] BOX TESTon 02-12-2024 BOX TEST SENT OUT Y [facility] BOX1 UNITY [facility] BOX2 02/12/24 [facility] BOX TEST [facility] Ambulatory Visit Summaryon 0 11-15-2023 Ambulatory Visit Summary Ambulatory Visit Summary EDDY YADAVNimisha Palma :1995 Visit Date:11/15/2023 Ambulatory Visit Instructions Your [...] Teofilo BRANDT, TREVOR Jimenez When: Where: [address] [place] [address]- Medications What When Instructions Unchanged letrozole (letrozole [...] water. ? Keep raw meats separate from fjilp-xr-wfv foods, such as fruits and vegetables. ? pe manager, meat, poultry, and eggs to the (more content not included)... [facility] Family Medicine Office/Clini c Noteon 11-15-2023 [...] with voice recognition software. Occasional wrong-word or ?xmwvj-e-sxmk? substitutions may have occurred due to the [...] of the extremity. She may also use zmua-mfi-ixbveqy analgesics such as ibuprofen or Tylenol per package instructions for comfort. Declines need for work note today. 1. Hand pain, right (M79.641: Pain in right hand) Hand x-ray was negative. Patient encouraged to use rest, ice, compression and elevation for symptom management. As above can use ivch-iop-gqlmhxo analgesics such as Tylenol or ibuprofen per [...] With When Contact Information Teofilo BRANDT, Dave Roesn, [facility] [place] [address]- Additional Instructions: Patient Education Healthy Eating Exercising to Lose Weight BMI for Adults How to Use Cold Therapy, Xrun-pa-Rkvz Hand Pain Problem List/Past Medical History Ongoing [...] 09/20/2018 Employment/School Employed, Work/School description: Works at [employer]. Previous employment/school: Student. Activity level: Occasional physical work. Highest education level: Some college. Operates hazardous equipment: No., 09/20/2018 Exercise Exercise duration: 4. Exercise frequency: 5-6 times/week. Self assessment: Fair condition. Exercise type: Walking., (more content not included)... [facility] Comment on above: Result Comment: [...] mGy = . DAP = . [facility] C Urineon 07-25-2023 Bacteria identified Cx Nom (U) Microbiology PROCEDURE: Urine Culture [R1] SOURCE: U CleanCatch BODY SITE: COLLECTED DATE/TIME: 07/23/2023 10:43 EDT RECEIVED DATE/TIME: 07/23/2023 12:09 EDT START DATE/TIME: 07/23/2023 12:09 EDT FREE TEXT SOURCE: Les AVALOS, Cristi Saldana PA-C, Cristi Palma. FINAL REPORTS Final Report [] Verified Date/Time: 07/25/2023 07:26 EDT 5,000 cfu/ml Mixed skin contaminants Performing Locations R1: This test was performed at: [facility], [address] [place] [address], [id number]- , [place], Normal [facility] Comment on above: Performed By: #### 2 [id number] #### [facility] [address] [place] [address] Ambulatory Visit Summaryon 0 07-23-2023 Ambulatory Visit Summary RACQUEL YADAV :1995 Visit Date:07/23/2023 Ambulatory Visit Instructions Your Diagnosis Urinary frequency BMI 32.0-32.9,adult UTI symptoms Your Care Team Attending Physician - Cristi Saldana PA-C. Primary Care Physician - Teofilo BRANDT, Dave [...] Appointments Follow Up with Teofilo BRANDT, Dave Roesn, [facility] When: Where: [address] [place] [address]- Medications What When Instructions Unchanged letrozole (letrozole [...] keep your urine pale yellow. ? Take fblj-jiy-ufhnsgn or prescription medicines. ? Eat foods that are high in fiber, such as beans, whole grains, and fresh fruits and vegetables. ? Limit foods that are high in fat and processed sugars, such as fried or sweet foods. General instructions ? Take japg-zxf-zbnxjyu and prescription medicines only as told by [...] muscles that help control urination. ? Take kzcm-gau-kgsmxvb and prescripti (more content not included)... [facility] Family Medicine Office/Clini c Noteon [...] with voice recognition software. Occasional wrong-word or ?keuoj-b-mobd? substitutions may have occurred due to the [...] month around July 05 ended on the fifth. She denies any vaginal bleeding she does [...] with this as she should contact her AGRICULTURAL SCIENCES PROFESSOR Dr. Vaughan for further evaluation in which [...] of Est. Patient Straight Fwd 10-19 Min 12416 2. BMI 32.0-32.9,adult (Z68.32: Body mass index [BMI] 32.0-32.9, adult) The standard range for ages 18 and older is >=18.5 and < 25 kg/m2. Your BMI today was above this range, this falls in the overweight to obese category and there are medical benefits to weight loss. We can offer counselling, referral, a (more content not included)... [facility] Comment on above: Result Comment: [...] numbers. This can be done either in [place]ian ([place] or metric measurements. Note that charts and online BMI calculators are available to help you find your BMI quickly and easily without having to do these calculations yourself. To calculate your BMI in Lithuanian ([place] measurements: 1. Measure your weight in [...] for Disease Control and Prevention: www.cdc.gov ? [place] Heart Association: www.heart.org ? National Heart, Lung, and Blood [place]: www.nhlbi.nih.gov Summary ? Body mass index (BMI) is a number that is calculated from a person's weight and height. ? BMI may help estimate how much of a person's weight is composed of fat. BMI can help identify those who may be at higher risk for certain medical problems. ? BMI can be measured using Lithuanian measurements or metric measurements. ? BMI charts are used to identify whether you are underweight, normal weight, overweight, or obese. This information is not intended to replace advice given to you by your health care provider. Make sure you discuss any questions you have with your health care provider. Document Revised: 01/14/2020 Document Reviewed: 11/21/2019 [employer] Patient Education ? 2022 [employer]. Urology Urinary Frequency, Adult Urinary frequency means [...] instructions at home: (more content not included)... [facility] Provider Letteron 07-23-2023 Provider Letter July 23, 2023 RACQUEL YADAV [address] [place] [address] : 1995 To Whom It May Concern, Please excuse above patient from work. Date of Illness: 07/23/2023 May Return to Work On:07/24/2023 Sincerely, [facility] [address] [place] [address], [place] [address] [facility] [facility] AGRICULTURAL SCIENCES PROFESSOR - Office Visiton 02 AGRICULTURAL SCIENCES PROFESSOR - Office Visit Diagnoses/Problems Assessed History of [...] Blood type [ ] Genetic Screen with Akimbo - will consider [x ] Take vitamins, vitamin D [x ] Return to see me after workup complete to discuss management plan [x ] Education: New infertility packet to be mailed to patient [x ] Engaged MD albin Johnson MD [facility] [phone] [place] [phone] [place] Provider Impressions 24 year old with oligomenorrhea, [...] Blood type [ ] Genetic Screen with Akimbo - will consider [x ] Take vitamins, vitamin D [x ] Return to see me after workup complete to discuss management plan [x ] Education: New infertility packet to be mailed to patient [x ] Engaged MD albin Johnson MD [facility] [phone] [place] [phone] [place] Appointment Duration:. 45 minutes; greater than half [...] trying for 4 years. History of Present [id number]/09/2020 11:15AM RACQUEL AVZQUEZ , 24 year is contacted for an (audio-visual, or audio only) Telehealth visit. Today's visit was provided through telemedicine conferencing: Using Mithridion platform. Consent: The concept of telemedicine? 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 Prior established pregnancies: No Toxic habits: Occasional [...] Recorded: 09Jun2020 11:02AM Height5 ft 5 in Fsxfwf081 lb BMI Wxmfqajfgt59.46 BSA Calculated1.82 Tobacco Useb) No Fall Screeninga) No falls within the last year [id number] Gravida0 Para0 Pain Scale0 Physical Exam This is a telehealth appointment Signatures Electronically signed by : Rayshawn Johnson MD; Jun 09 2020 11:52AM EST (Author) Normal [facility] HUMERUS LEFTon 12-01-2016 [facility] [address] [place] [address] ========Patient Name: RACQUEL VAZQUEZ : 1995Sex: FAge: Race: WhiteMRN: [id number]. Location: 84Patient Status: Date: 12/01/2016 4:25:00 PMCompleted Date: 12/01/2016 04:28 PMRequesting Provider: CARI GOOD Attending Provider: Report Copy To: Signs & Symptoms: S42.352D Displ commnt fx shaft of humer, l arm, 7thD [id number]: AthenaComments: , , Views (X-RAY, HUMERUS): AP, Lateral , Weight Bearing?: Y , With or Without Brace/Cast/Collar: Without , With Magnification Marker?: N , , , Ordering Provider - CARI GOOD MD , Rendering Provider - CARI GOOD MD , Exam: HUMERUS LEFTAccession #: [id number] HUMERUS LEFT 12/01/2016 4:28 PM EDT SIGNS [...] Electronically signed by:Subhash Campos M.D.. Transcribed by: [email or web address], User Resident: Electronically Signed by: SUBHASH CAMPOS @ 12/01/2016 04:35 PM Normal [facility] Comment on above: Order Comment: , , V iews (X-RAY, HUMERUS): AP, Lateral , Weight Bearing?: Y , With or Without Brace/Cast/Collar: Without , With Magnification Marker?: N , , , Ordering Provider - CARI GOOD MD , Rendering Provider - CARI GOOD MD , Vital Signs Date Time Vital Sign Value Performing Clinician Facility 03-19-2024 13:34-0500 Body mass index (BMI) [Ratio] 31.18 kg/m2 [employer] DO Work Phone: [facility] 03-19-2024 13:34-0500 Body weight 85 kg Nakul Clement DO Work Phone: [facility] 03-19-2024 13:34-0500 Diastolic blood pressure 70 mm[Hg] Nakul Clement DO Work Phone: [facility] 03-19-2024 13:34-0500 Systolic blood pressure 114 mm[Hg] Nakul Clement DO Work Phone: [facility] 03-15-2024 04:04-0500 Body temperature 98.42 [degF] Poncho Sanchez [facility] 03-15-2024 04:04-0500 Diastolic blood pressure 95 mm[Hg] Zackinn kken [facility] 03-15-2024 04:04-0500 Heart rate 94 /min Zackinn kken [facility] 03-15-2024 04:04-0500 Respiratory rate 16 /min Zcakinn kken [facility] 03-15-2024 04:04-0500 SaO2% (BldA) [Mass fraction] 97 % Poncho Sanchez [facility] 03-15-2024 04:04-0500 Systolic blood pressure 123 mm[Hg] Zackinn Dokken [facility] 03-03-2024 15:08-0400 Body mass index (BMI) [Ratio] 31.78 kg/m2 Nakul Clement DO Work Phone: [facility] 03-03-2024 15:08-0400 Body weight 86.64 kg Nakul Clement DO Work Phone: [facility] 03-03-2024 15:08-0400 Diastolic blood pressure 72 mm[Hg] Nakul Clement DO Work Phone: [facility] 03-03-2024 15:08-0400 Systolic blood pressure 118 mm[Hg] Nakul Clement DO Work Phone: [facility] 11-15-2023 12:56-0400 Blood Pressure Location Barby Juradosuzanneer [facility] 11-15-2023 12:56-0400 Body temperature 98.06 [degF] Barby Fabianer [facility] 11-15-2023 12:56-0400 Diastolic blood pressure 82 mm[Hg] Barby Fabianer [facility] 11-15-2023 12:56-0400 Heart rate 82 /min Barby Pastrana [facility] 11-15-2023 12:56-0400 Respiratory rate 18 /min Barby Pastrana [facility] 11-15-2023 12:56-0400 SaO2% (BldA) [Mass fraction] 99 % Barby Pastrana [facility] 11-15-2023 12:56-0400 Systolic blood pressure 120 mm[Hg] Barby Pastrana [facility] 07-23-2023 10:31-0400 Blood Pressure Location Cristi Les [facility] 07-23-2023 10:31-0400 Body temperature 98.24 [degF] Cristi Saldana [facility] 07-23-2023 10:31-0400 Diastolic blood pressure 74 mm[Hg] Cristi Saldana [facility] 07-23-2023 10:31-0400 Heart rate 81 /min Cristi Saldana [facility] 07-23-2023 10:31-0400 SaO2% (BldA) [Mass fraction] 97 % Cristi Saldana [facility] 07-23-2023 10:31-0400 Systolic blood pressure 118 mm[Hg] Cristi Saldana [facility] 07-29-2021 18:50-0400 Body temperature 96.98 [degF] Mark Moffett [facility] 07-29-2021 18:50-0400 Diastolic blood pressure 58 mm[Hg] Mark Moffett [facility] 07-29-2021 18:50-0400 Heart rate 70 /min Mark Moffett [facility] 07-29-2021 18:50-0400 Respiratory rate 12 /min Mark Moffett [facility] 07-29-2021 18:50-0400 SaO2% (BldA) [Mass fraction] 99 % Mark Moffett [facility] 07-29-2021 18:50-0400 Systolic blood pressure 100 mm[Hg] Mark Moffett [facility] 07-29-2021 17:50-0400 Body temperature 97.52 [degF] Mark Moffett [facility] 07-29-2021 17:50-0400 Diastolic blood pressure 60 mm[Hg] Mark Moffett [facility] 07-29-2021 17:50-0400 Heart rate 70 /min Mark Moffett [facility] 07-29-2021 17:50-0400 Respiratory rate 12 /min Mark Moffett [facility] 07-29-2021 17:50-0400 SaO2% (BldA) [Mass fraction] 99 % Mark Moffett [facility] 07-29-2021 17:50-0400 Systolic blood pressure 110 mm[Hg] Mark Moffett [facility] 07-29-2021 17:49-0400 Body temperature 97.52 [degF] Mark Moffett [facility] 07-29-2021 17:49-0400 Diastolic blood pressure 79 mm[Hg] Mark Moffett [facility] 07-29-2021 17:49-0400 Heart rate 69 /min Mark Moffett [facility] 07-29-2021 17:49-0400 Respiratory rate 12 /min Mark Moffett [facility] 07-29-2021 17:49-0400 SaO2% (BldA) [Mass fraction] 99 % Mark Moffett [facility] 07-29-2021 17:49-0400 Systolic blood pressure 113 mm[Hg] Mark Moffett [facility] 07-29-2021 17:10-0400 Respiratory rate 24 /min Mark Moffett [facility] 07-29-2021 17:05-0400 Respiratory rate 24 /min Mark Moffett [facility] 07-29-2021 17:00-0400 Respiratory rate 27 /min Mark Moffett [facility] 07-29-2021 14:40-0400 Heart rate 72 /min Mark Moffett [facility] 07-29-2021 14:37-0400 Blood Pressure Location Mark Moffett [facility] 07-29-2021 14:37-0400 Mean blood pressure 93 mm[Hg] Mark Moffett [facility] 07-29-2021 14:37-0400 Blood Pressure Location Mark Moffett [facility] 07-29-2021 14:37-0400 Body temperature 98.24 [degF] Mark Moffett [facility] 07-29-2021 14:37-0400 BP/Pulse Patient Position Mark Moffett [facility] 07-29-2021 14:37-0400 Mean blood pressure 91 mm[Hg] Mark Moffett [facility] Encounters Encounter Date Encounter Type Care Provider Facility Start: 03-19-2024 End: 03-19-2024 Office outpatient visit 15 minutes Nakul Clement DO Work Phone: [facility] Comment on above: Abdominal cramping a ffecting Start: 03-15-2024 End: 03-15-2024 Emergency department patient visit Poncho Sanchez [facility] Start: 03-03-2024 End: 03-03-2024 flow sheet Nakul Clement DO Work Phone: [facility] Comment on above: First trimester preg eric; 12 weeks gestation of ; Vaginal discharge during , antepartum; Encounter for screening for cervical length; History of loop electrosurgical excision procedure (LEEP) of cervix affecting , antepartum Start: 03-03-2024 End: 03-03-2024 Bamboo flowsheet Nakul Clement DO Work Phone: [facility] Start: 03-03-2024 End: 03-05-2024 Bamboo flowsheet Nakul Clement DO Work Phone: [facility] Start: 03-03-2024 End: 03-05-2024 External Result Encounter Nakul Clement DO Work Phone: [facility] Unsolicited Start: 02-27-2024 End: 02-27-2024 ambulatory GIO GRAF Facility:[facility] Start: 02-27-2024 End: 02-27-2024 Patient encounter procedure GIO GRAF [facility] Start: 02-12-2024 End: 02-13-2024 Clinisync Result Encounter Nakul Clement DO Work Phone: [facility] Unsolicited Start: 02-12-2024 End: 02-13-2024 Clinisync Result Encounter Nakul Clement DO Work Phone: [facility] Unsolicited Start: 11-15-2023 End: 11-15-2023 ambulatory Barby Pastrana [place] Start: 11-15-2023 End: 11-15-2023 Patient encounter procedure Barby Hernandez Fabianarminda [facility] Start: 07-23-2023 End: 07-23-2023 Lab Drop off Cristi Saldana [facility] Start: 07-23-2023 End: 07-23-2023 ambulatory Cristi Saldana [place] Start: 07-23-2023 End: 07-23-2023 Patient encounter procedure Cristi Saldana [facility] Start: 06-19-2023 End: 06-19-2023 Phys/qhp telephone evaluation 5-10 min Nakul Clement DO Work Phone: [facility] Comment on above: Female infertility Start: 09-21-2021 End: 09-21-2021 Lab Drop off Steph Brady [facility] Start: 07-29-2021 End: 07-29-2021 Admission to same day surgery center Mark Moffett [facility] Start: 12-01-2016 End: 12-02-2016 Ambulatory CARI GOOD Facility:[facility] Start: 11-01-2016 End: 11-02-2016 Ambulatory DEFAULT PHYSICIAN Facility:[facility] Procedures Date Procedure Procedure Detail Performing Clinician Start: 03-03-2024 Urnls dip stick/tabl et rgnt non-auto w/o micrscp Nakul Clement DO Work Phone: Start: 03-03-2024 URETHRITIS/DISCHARGE PLUS VAGINITIS (HTRX) Nakul Clement DO Work Phone: Start: 02-12-2024 ALL CBC WITH AUTO DIFF Nakul Clement DO Work Phone: Start: 02-12-2024 BOX TEST Nakul Fazi o DO Work Phone: Start: 09-15-2016 left humerus ORIF Mark Moffett Appendectomy [facility]off[facility] Plan of Treatment Date Care Activity Detail Author Start: 04-21-2024 End: 04-21-2024 Patient encounter procedure 04/21/2024 8:30 AM EST Routine [facility] [address] [place] [address] Tamara Gould PA [address] [place] [address] [facility] Start: 03-31-2024 End: 03-31-2024 Patient encounter procedure 03/31/2024 4:00 PM EST Routine [facility] [address] [place] [id number] Tamara Gould PA [address] [place] [address] [facility] Start: 03-26-2024 End: 03-26-2024 Professional / ancillary services management 03/26/2024 3:00 PM EST Ancillary Procedure [facility] [address] [place] [address] [facility] Start: 03-06-2024 End: 03-06-2024 Professional / ancillary services management 03/06/2024 12:30 PM EDT Ancillary Procedure [facility] [address] [place] [address] [facility] Start: 03-03-2024 End: 03-03-2024 Patient encounter procedure [facility] Comment on above: Arrived Start: 03-03-2024 End: 03-03-2025 US Pelvis transvaginal US OB transvaginal Imaging Routine History of loop electrosurgical excision procedure (LEEP) of cervix affecting , antepartum Expected: 03/03/2024 (Approximate), Expires: 03/03/2025 [facility] Comment on above: Expected: 03/03/2024 (Approximate), Expires: 03/03/2025 CHLAMYDIA TRACHOMATI S (GENITO/STI) CHLAMYDIA TRACHOMATIS (GENITO/STI) Lab Routine Vaginal discharge during , antepartum Ordered: 03/03/2024 [facility] Comment on above: Ordered: 03/03/2024 Neisseria gonorrhoea e DNA [Presence] in Unspecified specimen by AYE with probe detection Neisseria gonorrhea DNA probe, direct Lab Routine Vaginal discharge during , antepartum Ordered: 03/03/2024 [facility] Comment on above: Ordered: 03/03/2024 SURESWAB(R) ADVANCED VAGINITIS PLUS, TMA SURESWAB(R) ADVANCED VAGINITIS PLUS, TMA Pathology and Cytology Routine Vaginal discharge during , antepartum Ordered: 03/03/2024 [facility] Work Phone: Comment on above: Ordered: 03/03/2024 Payers Date Payer Category Payer Unknown [id number] 1995 Unknown [id number] 2.16.8 [id number] 1995 Unknown [id number] 2.16.8 [id number] 1995 Unknown [id number] 2.16.8 [id number] 1995 Unknown [id number] 2.16.8 [id number] 1995 Unknown [id number] 2.16.8 [id number] 1995 Unknown [id number] 2.16.8 [id number] 1995 Unknown [id number] 2.16.8 [id number] Unknown [id number] Unknown Social History Date Type Detail Facility Start: 12-14-2020 End: 11-15-2023 Tobacco smoking status Never smoked tobacco (finding) [facility] Comment on above: patient denies Tobacco smoking status Never [facility] Comment on above: patient denies Sex Assigned At Female [facility] Tobacco smoking stat [facility] Tobacco smoking consumption unknown [facility] Start: 1995 Sex Assigned At Female [facility] Start: 01-09-2023 Gender identity Identifies as female gender (finding) [facility] Start: 01-09-2023 Sexual orientation Heterosexual (fin ding) [facility] Start: 12-18-2023 [facility] Goals Date Patient Goal Desired Activity /State Personal health goal Functional Status Date Assessment Result Facility 03-15-2024 Functional Status N/A [facility] 11-15-2023 Functional Status N/A [facility] 07-23-2023 Functional Status N/A [facility] Clinical Notes 07-29-2021 to 03-19-2024 Pretty ISAIAH Art - 03/19/2024 1:20 PM EST Note Date & Type Note Facility 03-19-2024 History of Present illness Narrative Reason for Appointment: Patient ID: Racquel Yadav is a 28 y.o. female who presents for ER Follow-up Patient presents today for Return OB appointment. MEDICATIONS Current Outpatient Medications Medication Instructions ondansetron ODT (ZOFRAN-ODT) 4 mg, Oral, Every 6 hours PRN promethazine (PHENERGAN) 12.5 mg, Oral, Every 6 hours PRN, Take 1 tablet by mouth every 6 hours as needed for nausea. ALLERGIES No Known Allergies PROBLEMS Active Ambulatory Problems Diagnosis Date Noted No Active Ambulatory Problems Resolved Ambulatory Problems Diagnosis Date Noted No Resolved Ambulatory Problems Past Medical History: Diagnosis Date H/O LEEP 2021 Irregular periods/menstrual cycles Pap smear for cervical cancer screening 2021 PCOS (polycystic ovarian syndrome) HISTORY PAST MEDICAL HISTORY SOCIAL HISTORY Past Medical History: Diagnosis Date H/O LEEP 2021 abnormal cells Irregular periods/menstrual cycles Pap smear for cervical cancer screening 2021 Dr. Moran PCOS (polycystic ovarian syndrome) Social History Tobacco Use Smoking status: Not on file Smokeless tobacco: Not on file Substance Use Topics Alcohol use: Not on file Drug use: Not on file FAMILY HISTORY No family history on file. SURGICAL HISTORY Past Surgical History: Procedure Laterality Date CERVICAL BIOPSY W/ LOOP ELECTRODE EXCISION 07/2021 abnormal cells from pap REVIEW OF SYSTEMS Review of Systems: Review of Systems Constitutional: Negative. HENT: Negative. Eyes: Negative. Respiratory: Negative. Cardiovascular: Negative. Gastrointestinal: Negative. Genitourinary: Negative. Musculoskeletal: Negative. Skin: Negative. Neurological: Negative. All other systems reviewed and are negative. Hematological: Negative. Endocrine: Negative. Allergic/Immunologic: Negative. OBJECTIVE Objective: Physical Exam Constitutional: Appearance: Normal appearance. She is well-developed. Cardiovascular: Rate and Rhythm: Normal rate and regular rhythm. Pulmonary: Effort: Pulmonary effort is normal. Breath sounds: Normal breath sounds. Abdominal: General: Bowel sounds are normal. There is no distension. Palpations: Abdomen is soft. Tenderness: There is no abdominal tenderness. There is no guarding or rebound. Musculoskeletal: General: No swelling. Normal range of motion. Right lower leg: No edema. Left lower leg: No edema. Neurological: Mental Status: She is alert and oriented to person, place, and time. Skin: General: Skin is warm and dry. Psychiatric: Mood and Affect: Mood normal. Behavior: Behavior normal. Vitals and nursing note reviewed. Exam conducted with a roof bolting coal miner present. Vitals: Estimated body mass index is 31.18 kg/m as calculated from the following: Height as of 12/20/23: 5' 5 . Weight as of this encounter: 187 lb 6.4 oz. BP: 114/70 Patient's last menstrual period was 12/04/2023. ASSESSMENT & PLAN ICD-10-CM 1. Abdominal cramping affecting O26.899 R10.9 Patient presents today for a routine obstetrics appointment. Patient is currently 15w1d with a Estimated Date of Delivery: 09/09/24. Pt presents for follow up ER visit. Pt having vaginal bleeding and cramping. Pt reassured, feeling better since. Pt to return in 4 weeks for scheduled OB appt. Documented by Pretty Art LPN on behalf of: Nakul Vaughan DO documented in this encounter [facility] 03-17-2024 Note Microbiology PROCEDURE: Cervical Culture [R1] [...] Locations R1: This test was performed at: [facility], [address] [place] [address], [id number]- , [place], [facility] Comment on above: Performed By: #### 1 [id number] #### [facility] [address] [place] [id number] 03-15-2024 Evaluation + Plan note Extrac hernesto from: Title:ED Note Author:Poncho Sanchez DO Date :03/15/24 Vaginal bleeding in pregnanc y (O46.90: Antepartum hemorrhage, unspecified, unspecified trimester) Orders: Beta hCG Quantitative Cervical Culture Extra Lav Tube Extra SST Tube UA with Cult Rflx US After 1st Trimester Addendum by Augie Boyd DO on March 15, 2024 08:03:55 EST Patient signed out to me by the prior physician I did review full workup. The emergency department. Ultrasound is negative showing single live intrauterine . Urine test is negative. Patient states that she is a positive blood type. Ultimately she is discharged home to follow-up with her [employer] WORK[employer] physician educated on return precautions. Additional diagnosis: Threatened [facility] 11-09-2024 Hospital Discharge instructions Follow Up Care 03/15/2024 04:00:46 With:Nakul VAUGHAN Address: [address] , [place] [address]- Business (1) When:03/18/2024 08:03:16 With:Dave Red Address: [address] [place] [address]- Business (1) When:Within 3 Day(s) [facility] 10-28-2024 History of Present illness Narrative* Yuliet Elizalde LPN - 03/03/2024 2:50 PM EDT Reason for Appointment: Patient ID: Racquel Yadav is a 28 y.o. female who presents for Routine Visit Patient presents today for Return OB appointment. MEDICATIONS Current Outpatient Medications Medication Instructions ondansetron ODT (ZOFRAN-ODT) 4 mg, Oral, Every 6 hours PRN ondansetron ODT (ZOFRAN-ODT) 4 mg, Oral, Every 6 hours PRN promethazine (PHENERGAN) 12.5 mg, Oral, Every 6 hours PRN, Take 1 tablet by mouth every 6 hours as needed for nausea. ALLERGIES No Known Allergies PROBLEMS Active Ambulatory Problems Diagnosis Date Noted No Active Ambulatory Problems Resolved Ambulatory Problems Diagnosis Date Noted No Resolved Ambulatory Problems Past Medical History: Diagnosis Date H/O LEEP 2021 Irregular periods/menstrual cycles Pap smear for cervical cancer screening 2021 PCOS (polycystic ovarian syndrome) HISTORY PAST MEDICAL HISTORY SOCIAL HISTORY Past Medical History: Diagnosis Date H/O LEEP 2021 abnormal cells Irregular periods/menstrual cycles Pap smear for cervical cancer screening 2021 Dr. Moran PCOS (polycystic ovarian syndrome) Social History Tobacco Use Smoking status: Not on file Smokeless tobacco: Not on file Substance Use Topics Alcohol use: Not on file Drug use: Not on file FAMILY HISTORY No family history on file. SURGICAL HISTORY Past Surgical History: Procedure Laterality Date CERVICAL BIOPSY W/ LOOP ELECTRODE EXCISION 07/2021 abnormal cells from pap REVIEW OF SYSTEMS Review of Systems: Review of Systems All other systems reviewed and are negative. OBJECTIVE Objective: Physical Exam Constitutional: Appearance: Normal appearance. She is well-developed. Genitourinary: Vulva normal. Cardiovascular: Rate and Rhythm: Normal rate and regular rhythm. Pulmonary: Effort: Pulmonary effort is normal. Breath sounds: Normal breath sounds. Abdominal: General: Bowel sounds are normal. There is no distension. Palpations: Abdomen is soft. Tenderness: There is no abdominal tenderness. There is no guarding or rebound. Musculoskeletal: General: No swelling. Normal range of motion. Right lower leg: No edema. Left lower leg: No edema. Neurological: Mental Status: She is alert and oriented to person, place, and time. Skin: General: Skin is warm and dry. Psychiatric: Mood and Affect: Mood normal. Behavior: Behavior normal. Vitals and nursing note reviewed. Exam conducted with a roof bolting coal miner present. Vitals: Estimated body mass index is 31.78 kg/m as calculated from the following: Height as of 12/20/23: 5' 5 . Weight as of this encounter: 191 lb. BP: 118/72 Patient's last menstrual period was 12/04/2023. ASSESSMENT & PLAN ICD-10-CM 1. First trimester Z34.91 POCT urinalysis dipstick manually resulted 2. 12 weeks gestation of Z3A.12 New OB: Patient presents today for 1st time obstetrics appointment with provider. Patient is currently 13w0d . Patients history has been reviewed in great detail including any potential risks. Patient stated she currently has no complaints. Expectations throughout regarding labs, ultrasounds, and appointments have been discussed with the patient in detail. It was reiterated that the patient is to drink 6-8 glasses of water a day, eat 6 small meals a day, do not consume raw or undercooked meat, and stay away from [facility]. Patient has been consulted regarding any further do's and don'tsof . Patient voiced understanding and all questions and concerns were answered. Patient voi yoselin she is still having nausea, but has had increase in weight since last visit. Patient voiced sheis having symptoms of UTI and BV. Vaginal cultures obtained without difficulty and patient treated with Keflex and Terazol 7 for symptoms. Orders Placed This Encounter Procedures US OB transvaginal CHLAMYDIA TRACHOMATIS (GENITO/STI) Neisseria gonorrhea DNA probe, direct POCT urinalysis dipstick manually resulted Follow Up: Patient is to return in 4 weeks for routine OB appointment. Documented by Yuliet Elizalde LPN on behalf of: Nakul Vaughan DO documented in this encounterCarondelet [id number] Hospital Discharge instructions Patient Education 11/15/2023 13:24:19 [...] soapy water. ?Keep raw meats separate from zsqkq-bm-env foods, such as fruits and vegetables. ?pe manager, meat, poultry, and eggs to the [...] include 1 slice of bread, 1 cup nrbic-mw-qdt cereal, 3 cups popcorn, or cup cooked [...] provider. Document Revised: 12/20/2021 Document Reviewed: 12/20/2021 [employer] Patient Education 2022 [employer]. 11/15/2023 13:24:01 Exercising to Lose Weight Exercising [...] your health care provider or diet and pet nutrition specialist (dietitian). This may include: ?Eating fewer [...] provider. Document Revised: 06/19/2021 Document Reviewed: 06/19/2021 [employer] Patient Education 2022 [employer]. 11/15/2023 13:23:59 BMI for Adults BMI for [...] numbers. This can be done either in [place] ([place] or metric measurements. Note that charts and online BMI calculators are available to help you find your BMI quickly and easily without having to do these calculations yourself. To calculate your BMI in [place] ([place] measurements: 1.Measure your weight in pounds [...] Centers for Disease Control and Prevention: www.cdc.gov [place] [employer]: www.heart.org National Heart, Lung, and Blood [place]: www.nhlbi.nih.gov Summary Body mass index (BMI) is a number that is calculated from a person's weight and height. BMI may help estimate how much of a person's weight is composed of fat. BMI can help identify thosewho may be at higher risk for certain medical problems. BMI can be measured using Lithuanian measurements or metric measurements. BMI charts are used to identify whether you are underweight, normal weight, overweight, or obese. This information is not intended to replace advice given to you by your health care provider. Make sure you discuss any questions you have with your health care provider. Document Revised: 01/14/2020 Document Reviewed: 11/21/2019 [employer] Patient Education 2022 [employer]. 11/15/2023 13:23:56 How to Use Cold Therapy, Pugj-ha-Rsfj How to Use Cold Therapy Cold therapy, [...] provider. Document Revised: 03/09/2021 Document Reviewed: 03/09/2021 [employer] Patient Education 2022 [employer] 11/15/2023 13:23:47 Hand Pain Hand Pain [...] discomfort: Managing pain, stiffness, and swelling Take eilm-msj-ezhdfrs and prescription medicines only as told by [...] provider. Document Revised: 08/10/2022 Document Reviewed: 08/11/2021 [employer] Patient Education 2022 [employer]. Follow Up Care 11/15/2023 10:03:53 With:Teofilo BRANDT, TREVOR Jimenez Address: [address] [place] [id number]- When: Unknown [facility] 07-11-2024 NotePatient Education Nutrition Healthy [...] water. ? Keep raw meats separate from iyfsi-ej-ghk foods, such as fruits and vegetables. ? pe manager, meat, poultry, and eggs to the [...] include 1 slice of bread, 1 cup edayz-ww-mmt cereal, 3 cups popcorn, or ? cup [...] for about 5 teas (more content not included)...[facility] 07-23-2023 Evaluation + Plan note Diagnostic Tests Pending * Urine Culture 07/23/23 [facility]03-18-2024 Hospital Discharge instructions Patient Education 07/23/2023 11:05:58 [...] to keep your urine pale yellow. ?Take guuu-nfn-jvpxifd or prescription medicines. ?Eat foods that are high in fiber, such as beans, whole grains, and fresh fruits and vegetables. ?Limit foods that are high in fat and processed sugars, such as fried or sweet foods. General instructions Take cimr-aav-syndhqx and prescription medicines only as told by [...] the muscles that help control urination. Take efvy-mbo-hvvallm and prescription medicines only as told by your health care provider. Contact a health care provider if your symptoms do not improve or get worse. This information is not intended to replace advice given to you by your health care provider. Make sure you discuss any questions you have with your health care provider. Document Revised: 11/26/2020 Document Reviewed: 11/26/2020 [employer] Patient Education 2022 [employer] 07/23/2023 10:36:54 BMI for Adults BMI for [...] numbers. This can be done either in [place] ([place] or metric measurements. Note that charts and online BMI calculators are available to help you find your BMI quickly and easily without having to do these calculations yourself. To calculate your BMI in [place] ([place] measurements: 1.Measure your weight in pounds [...] Centers for Disease Control and Prevention: www.cdc.gov [place] [employer]: www.heart.org National Heart, Lung, and Blood [place]: www.nhlbi.nih.gov Summary Body mass index (BMI) is a number that is calculated from a person's weight and height. BMI may help estimate how much of a person's weight is composed of fat. BMI can help identify thosewho may be at higher risk for certain medical problems. BMI can be measured using Lithuanian measurements or metric measurements. BMI charts are used to identify whether you are underweight, normal weight, overweight, or obese. This information is not intended to replace advice given to you by your health care provider. Make sure you discuss any questions you have with your health care provider. Document Revised: 01/14/2020 Document Reviewed: 11/21/2019 [employer] Patient Education 2022 [employer]. Follow Up Care 07/23/2023 09:05:39 With:Teofilo BRANDT, TREVOR Jimenez Address: [address] [place] [id number] When: Unknown [facility] 02-13-2024 History of Present illness Narrative* Nakul Vaughan DO - 06/19/2023 8:10 AM EST Reason for Appointment: Patient ID: Racquel Yadav is a 27 y.o. female who presents for TELEHEALTH FOLLOW UP and Infertility Patient presents today via telephone call for a telehealth appointment. Patients Phone #: [phone] (mobile) Current Medications: has a current medication [...] of: Nakul Vaughan DO documented in this encounterCarondelet [id number] Hospital Discharge instructions Patient Education 07/29/2021 17:20:52 [employer] WORKER - Post D&C, Hysteroscopy, LEEP or Essure/Laparoscopy [...] Up Care 07/12/2021 14:08:06 With:Mark Moffett Address: [address] [place] [address]- Business (1) When:2 weeks Comments:Call for any problems. [facility] No data available for this section [facility] Diagnosis Female infertility Female infertility of unspecified origin documented in this encounter [facility] HealthcareEvaluation note* Diagnosis Abdominal cramping affecting documented in this encounter [facility] Healthcare[facility] note* Diagnosis First trimester state, incidental 12 weeks gestation of Vaginal discharge during , antepartum Encounter for screening for cervical length History of loop electrosurgical excision procedure (LEEP) of cervix affecting , antepartum [facility] No data available for this section [facility] No data available for this section [facility] Summary Purpose Family [...] content) DATE CREATED AUTHOR 10/31/2017 [facility] DATE CREATED AUTHOR AUTHOR'S ORGANIZ ATION 06/10/2020 [facility] DATE CREATED AUTHOR AUTHOR'S ORGANIZ ATION 03/17/2024 [facility] DATE CREATED AUTHOR AUTHOR'S ORGANIZ ATION 03/20/2024 Vel[facility] ical Center Reason for Visit (unrecogniz ed section and content) Reason Comments TELEHEALTH FOLLOW UP Infertility Reason Comments ER Follow-up Reason Comments Routine Visit Patient Care team informatio n (unrecognized section and content) Personnel Name: Dave Red MD Address: Address: [address] [place] [address] Personnel Name: Dave Red MD Address: Address: [address] [place] [address] Personnel Name: Dave Red MD Address: Address: [address] [place] [address] Personnel Name: Dave Red MD Address: Address: [address] [place] [address] Personnel Name: Dave Red MD Address: Address: [address] [place] [address] Personnel Name: Dave Red MD Address: Address: [address] [place] [address] FOR RECORDS PERTAINING TO PATIENTS WHO ARE [...] PRIMARY CLINICAL RECORDS. [facility] provides no warranty or guarantee of the accuracy or completeness of information in this document.
== END 2024-04-22 09:20 | disposition home or self-care (01) ==
LOC: US 09:21
PROVIDERS: Visit Provider Physician Assistant
DX: Z36.89 Encounter for other specified antenatal screening (principal); Z3A.20 20 weeks gestation of pregnancy
CPT/HCPCS: 76805; 76817

== ENCOUNTER 2024-05-31 10:59 | Outpatient (OUT) | payer OTHER, SELFPAY ==
--- OUTSIDE RECORDS SUMMARY | 2024-05-31 11:01 | XMS_ITS | CCD ---
Author Organization [facility] Care Team Providers Care Ultrasonic Tester Name Role Phone PHYSICIAN, DEFAULT Unavailable Unavailable PHYSICIAN, DEFAULT Unavailable Unavailable SHENDGE, VITHAL Unavailable Unavailable SHENDGE, VITHAL Unavailable Unavailable SELF, REFERRED Unavailable Unavailable SELF, REFERRED Unavailable Unavailable Dave Red Primary Care Physician [phone] Unavailable Primary Care Provider UnavailCristi Hannah Attending [...] Medication Allergies] Propensity to adverse reactions (disorder) [facility] Repository Medications Current Medications Medication Drug Class(es) Dates Sig (Normalized) Sig (Original) ibuprofen 600 mg oral tablet (2 sources) Nonsteroidal Anti-inflammatory Drug Start: 07-29-2021 take 1 tablet by mouth every six hours ibuprofen 600 mg Tab 600 mg = 1 tab(s), Oral, q6hr, # 10 tab(s), Refills(s) 0, Pharmacy: [facility], 164, cm, 07/20/21 5:00:00 EDT, Height/Length Dosing, 79.7, kg, 07/20/21 5:00:00 EDT, Weight Dosing Start Date: 07/29/21 Status: Ordered letrozole 2.5 mg oral tablet (6 sources) Aromatase Inhibitor Start: 07-23-2023 letrozole 2.5 mg Tab Refills(s) 0 Start Date: 07/23/23 Status: Ordered metFORMIN hydrochloride 500 mg oral tablet (2 sources) Biguanide Start: 02-13-2023 End: 02-13-2024 take 1 tablet by mouth at mealtime metFORMIN (Glucophage) 500 MG tablet Indications: PCOS (polycystic ovarian syndrome) Take 1 tablet (500 mg) by mouth in the morning. Take with meals. 30 tablet 11 02/13/2023 02/13/2024 Active ondansetron 4 mg disintegrating oral tablet (20 sources) Serotonin-3 Receptor Antagonist Start: 04-14-2024 End: 05-21-2024 take 1 tablet by mouth every six hours ondansetron ODT (Zofran-ODT) 4 MG disintegrating tablet Indications: Nausea and vomiting in Take 1 tablet (4 mg) by mouth every 6 (six) hours 120 tablet 04/21/2024 05/21/2024 Active Start: 02-11-2024 End: 03-26-2024 take 1 tablet by mouth every six hours for nausea ondansetron ODT (Zofran-ODT) 4 MG disintegrating tablet Indications: Nausea and vomiting in Take 1 tablet (4 mg) by mouth every 6 (six) hours if needed for nausea or vomiting 30 tablet 2 02/25/2024 03/26/2024 Start: 01-17-2024 End: 02-01-2024 take 1 tablet by mouth every six hours for nausea ondansetron ODT (Zofran-ODT) 4 MG disintegrating tablet Indications: Nausea/vomiting in Take 1 tablet (4 mg) by mouth every 6 (six) hours if needed for nausea or vomiting (Nausea) for up to 15 days 60 tablet 3 01/17/2024 02/01/2024 Active promethazine hydrochloride 12.5 mg oral tablet (13 sources) Phenothiazine Start: 02-12-2024 take 1 tablet by mouth every six [...] oral capsule (3 sources) Cephalosporin Antibacterial Start: 03-03-20 End: 03-10-20 take 1 capsule by mouth in the [...] for 7 days. 21 capsule 03/03/2024 03/10/2024 medroxyPROGESTERone acetate 10 mg oral tablet (15 sources) Progestin Start: 02-14-20 End: 02-13-20 take 1 tablet by mouth once daily medroxyPROGESTERone (Provera) 10 MG tablet Indications: PCOS (polycystic ovarian syndrome) , Anovulation , Fallopian tube disorder Take 1 tablet (10 mg) by mouth Daily for 10 days 10 tablet 11/22/2023 01/31/2024 Discontinued (Other) nitrofurantoin, macrocrystals 25 mg / nitrofurantoin, monohydrate 75 mg oral capsule (3 sources) Nitrofuran Antibacterial Start: 02-19-20 End: 03-03-20 take 1 capsule by mouth in the morning nitrofurantoin, macrocrystal-monohydra te, (Macrobid) 100 MG capsule Indications: Bacteria in urine Take 1 capsule (100 mg) by mouth in the morning and 1 capsule (100 mg) before bedtime. Do all this for 7 days. 14 capsule 02/19/2024 03/03/2024 Discontinued (Therapy completed) Start: 01-04-2024 End: 01-11-2024 take 1 capsule by mouth in the morning nitrofurantoin, macrocrystal-monohydrate , (Macrobid) 100 MG capsule Indications: Urinary tract infection without hematuria, site unspecified Take 1 capsule (100 mg) by mouth in the morning and 1 capsule (100 mg) before bedtime. Do all this for 7 days. 14 capsule 01/04/2024 01/11/2024 Active phentermine hydrochloride 37.5 mg oral tablet (4 sources) Sympathomimetic Amine Anorectic Start: 12-20-2023 End: 01-31-2024 take 1 tablet by mouth before mealtime phentermine (Adipex-P) 37.5 MG tablet Indications: Encounter for weight management Take 1 tablet (37.5 mg) by mouth in the morning. Take before meals. 30 tablet 12/20/2023 01/31/2024 Discontinued (Other) terconazole 4 mg/ml vaginal cream (7 sources) Azole Antifungal Start: 02-25-2024 End: 03-10-2024 terconazole (Terazol 7) 0.4 % vaginal cream Indications: Vaginal discharge during , antepartum Insert 1 applicator into the vagina at bedtime for 7 days 45 g 03/03/2024 03/10/2024 Start: 01-04-2024 End: 01-11-2024 terconazole (Terazol 7) 0.4 % vaginal cream Indications: Yeast infection Insert 1 applicator into the vagina at bedtime for 7 days 45 g 01/04/2024 01/11/2024 Active Problems Active Problems Problem Classification Problem [...] hemorrhage, unspecified, unspecified trimester] Onset: 03-15-2024 Episodic Menstrual disorders (1 source) Missed period; Translations: [Irregular menstruation, unspecified] 01-31-2024 Chronic Mood disorders (8 sources) Major depressive disorder [...] of cervix, unspecified trimester] 03-03-2024 Episodic Other complications of (2 sources) Vomiting of , unspecified; Translations: [Unspecified vomiting of , unspecified as to episode of care or not applicable] 04-21-2024 Episodic Other connective tissue disease (1 source) [...] 07-23-2023 Chronic Other and delivery including normal (8 sources) First trimester ; Translations: [Encounter for supervision of normal , unspecified, first trimester] 03-03-2024 Episodic Other screening for suspected conditions (not mental disorders or infectious disease) (8 sources) Patient encounter status; Translations: [Encounter for screening for cervical length] 03-03-2024 Episodic Residual codes; unclassified (1 source) Past history of procedure; Translations: [Other specified postprocedural states] Onset: 07-29-2021 Episodic Residual codes; unclassified (2 sources) Gestation period, 12 weeks; Translations: [12 weeks gestation of ] 03-03-2024 Episodic Residual codes; unclassified (2 sources) Gestation period, 24 weeks; Translations: [24 weeks gestation of ] 05-20-2024 Episodic Substance-related disorders (8 sources) Smoker 07-19-2021 Chronic Comment on above: Added secondary to d ocumentation in Social History. Unclassified (2 sources) Unknown / UNK(Unknown) Onset: 12-01-2016 Unclassified (11 sources) OB Reminders Onset: 03-03-2024 03-03-2024 Past [...] Test Name Value Interpretation Reference Range Facility Urinalysis macro (dipstick) panel (U)on 05-20-2024 Bilirubin, UA Negative Negative - 4(70) +++ mg/dL [facility] Blood, UA Negative Negative - 50 Moncho/mcL [facility] Healthcare Clarity, UA Clear [facility] Healthcare Color, UA Yellow [facility] Healthcare Glucose, UA Negative Negative - 1999(110) ++++ mg/dL [facility] Interpretation and review of laboratory results Normal [facility] Ketones, UA Negative Negative - 160(16) ++++ mg/dL [facility] Leukocytes, UA Negative Negative - 500+++ Bhavik/mcL [facility] Healthcare Nitrite, UA Negative Negative - Positive [facility] pH, UA 7 5 - 9 [facility] Healthcare Protein, UA Negative Negative - 1999(20) ++++ mg/dL [facility] Healthcare Spec Grav, UA 1.02 1 - 1.03 [facility] Healthcare Urobilinogen, UA 0.2 0.2 - 12 mg/dL [facility] Healthcare [facility] Healthcare Urinalysis macro (dipstick) panel (U)on 04-21-2024 Bilirubin, UA Negative Negative - 4(70) +++ mg/dL [facility] Blood, UA Negative Negative - 50 Moncho/mcL [facility] Healthcare Clarity, UA Clear [facility] Color, UA Yellow [facility] Glucose, UA Negative Negative - 1999(110) ++++ mg/dL [facility] Interpretation and review of laboratory results Abnormal [facility] Ketones, UA Negative Negative - 160(16) ++++ mg/dL [facility] Healthcare Leukocytes, UA Negative Negative - 500+++ Bhavik/mcL [facility] Nitrite, UA Negative Negative - Positive [facility] pH, UA 7 5 - 9 [facility] Healthcare Protein, UA Trace Negative - 1999(20) ++++ mg/dL [facility] Healthcare Spec Grav, UA 1.02 1 - 1.03 [facility] Urobilinogen, UA 0.2 0.2 - 12 mg/dL [facility] BhCG Quanton 03-15-2024 [place] [address] m[IU]/mL High 1-3 F [facility] Comment on above: Result Comment: 'F N ON < 1 - 3' ' 0.2 - 1 WEEK = 5 TO 50' ' 1 - 2 WEEKS = 50 - 500' ' 2 - 3 WEEKS = 100 - 5000' ' 3 - 4 WEEKS = 500 - 88904' ' 4 - 5 WEEKS = 1000 - 28885' ' 5 - 6 WEEKS = 42211 - 356380' ' 6 - 8 WEEKS = 80497 - 858118' ' 8 - 12 WEEKS = 87289 - 463021' Performed By: #### 2 [id number] #### [facility] [address] [place] [id number] CHEMISTRYOrdered By: SYSTEM SYSTEM on 03-15-2024 [place] [address] m[IU]/mL High 1 - 3 mIU/mL [facility] Comment on above: Result Comment: 'F N ON < 1 - 3' ' 0.2 - 1 WEEK = 5 TO 50' ' 1 - 2 WEEKS = 50 - 500' ' 2 - 3 WEEKS = 100 - 5000' ' 3 - 4 WEEKS = 500 - 30188' ' 4 - 5 WEEKS = 1000 - 23367' ' 5 - 6 WEEKS = 83483 - 292147' ' 6 - 8 WEEKS = 42895 - 498511' ' 8 - 12 WEEKS = 25231 - 179627' ED Clinical Summaryon 2023 ED Clinical Summary ED Clinical Summary [address] [address] ED Clinical Summary Person Information Name: RACQUEL YADAV [place] Age: 28 Years : 1995 Sex: Female Language: Icelandic PCP: Dave Red MD Marital Status: Phone: MRN: [id number] Visit Id: Visit Reason: Nausea; Vaginal bleeding [...] 03/15/2024 08:09:45 03/15/2024 08:09:45 03/15/2024 08:09:45 ADDRESS: [address] [place] [id number] PHYS DOC NOTES: Addendum by Augie Boyd DO on March 15, 2024 08:03:55 EST MEDICAL INFORMATION: Prescriptions Given: Medications to Continue with No Changes Other Medications letrozole (letrozole 2.5 mg Tab) medroxyPROGESTERone (medroxyPROGESTERone 10 mg Tab) PATIENT EDUCATION INFORMATION: Instructions: Follow up: With: Address: When: [facility], [address] [place] [address] [place] [address] Business (1) In 3 days 03/18/2024 With: Address: When: Dave Red [address] [place] [address] Business (1) In 3 days DIAGNOSIS: Threatened ; Vaginal bleeding in Normal [facility] ED Note-Physicianon 03-15-20 ED Note-Physician ED Note-Physician Basic Information Time [...] and Complexity of Problems Differential Diagnosis: [] [facility] Data External documents reviewed: [] My [...] 09/20/2018 Employment/School Employed, Work/School description: Works at [employer]. Previous employment/school: Student. Activity level: Occasional physical [...] of lifetime (more content not included)... Normal [facility] Comment on above: Result Comment: Elec tronically Signed By: Augie Boyd DO\barbie\Date and Time Signed: 03/15/24 08:04 EST ED Note-Physician ED Note-Physician Basic Information Time Seen: Poncho Sanchez DO Jr 03/15/2024 04:01 Chief Complaint pt to ED [...] and Complexity of Problems Differential Diagnosis: [] [facility] Data External documents reviewed: [] My [...] 09/20/2018 Employment/School Employed, Work/School description: Works at [employer]. Previous employment/school: Student. Activity level: Occasional physical [...] of lifetime (more content not included)... Normal [facility] Comment on above: Result Comment: Elec tronically Signed By: Poncho Sanchez DO\.br\Date and Time Signed: 03/15/24 06:45 EST ED Patient Education Noteon 03-15-2024 ED Patient Education Note ED Patient Education Note Normal [facility] ED Patient Summaryon 024 ED Patient Summary ED Patient Summary [place] [id number] Patient Discharge Instructions Person Information Name: RACQUEL YADAV Age: 28 Years Arrival Date: 03/15/2024 03:59:56 Discharge Diagnosis: Threatened ; Vaginal bleeding in Primary Care Physician: Dave Red MD Provider Information Primary Provider: Poncho Snachez DO Advanced Sand Cutter:None The exam and treatment you received in the Emergency Department were for an urgent problem and are not intended as complete care. It is important that you follow up with a doctor, nurse practitioner, or physician???s anesthesiologist assistant for ongoing care. If your symptoms become worse or you do not improve as expected and you are unable to reach your usual health care provider, you should return to the Emergency Department. We are available 24 hours a day. KETTYRACQUEL PEREYRA Louie has been given the following list of patient education materials, prescriptions and follow-up instructions: Follow-up Instructions: With: Address: When: [facility], [address] [place] [address] [place] [phone] Business (1) In 3 days 03/18/2024 With: Address: When: Dave Red [address] [place] [address] Business (1) In 3 days In the event that this physician does not participate in your insurance network, please consult with your insurance company to find a nearby participating provider. Patient Education Materials: A MESSAGE TO ALL PATIENTS REGARDING OPIOIDS PRESCRIPTION OPIOIDS: WHAT YOU NEED TO KNOW Prescription opioids can be used to help relieve [id number] pain and are often prescribed following a [...] about t (more content not included)... Normal [facility] Extra Blueon 03-15-2024 Tube Collected Plasma Yes Invalid Interpretation Code [facility] Comment on above: Performed By: #### 1 [id number] #### [facility] [address] [place] [address] Extra [place] 03-15-2024 WB Tube Collected Yes Invalid Interpretation Code [facility] Comment on above: Performed By: #### 1 [id number] #### [facility] [address] [place] [address] No Panel InformationOrdered By: Stephanie Acevedo on 03-15-2024 WP No Trichomonas vaginalis present No clue cells present No yeast seen [facility] UA with Cult Rflxon 03-15-20 24 Bilirubin Ql (U) Negative Normal Negative [facility] Comment on above: Performed By: #### 4 [id number] #### [facility] [address] [place] [address] Clarity (U) Clear Normal Clear [facility] Comment on above: Performed By: #### 4 [id number] #### [facility] [address] [place] [address] Color (U) Light-Yellow Normal Yellow [facility] Comment on above: Result Comment: Micr oscopic readings are only performed on those samples that meet specific criteria set forth by [facility]. Performed By: #### 4 [id number] #### [facility] [address] [place] [address] Glucose Ql (U) Negative Normal Negative [facility] Comment on above: Performed By: #### 4 [id number] #### [facility] [address] [place] [address] Hemoglobin Auto test strip (U) [Mass/Vol] Trace Abnormal Negative [facility] Comment on above: Performed By: #### 4 [id number] #### [facility] [address] [place] [address] Ketones Auto test strip Ql (U) 1+ mg/dL Abnormal Negative [facility] Comment on above: Performed By: #### 4 [id number] #### [facility] [address] [place] [address] Leukocyte esterase Auto test strip Ql (U) Negative Normal Negative [facility] Comment on above: Performed By: #### 4 [id number] #### [facility] [address] [place] [address] Nitrite Auto test strip Ql (U) Negative Normal Negative [facility] Comment on above: Performed By: #### 4 [id number] #### [facility] [address] [place] [address] pH (U) 5.5 [pH] Invalid Interpretation Code 5.0-9.0 [facility] Comment on above: Performed By: #### 4 [id number] #### [facility] [address] [place] [address] Protein Ql (U) Negative Normal Negative [facility] Comment on above: Performed By: #### 4 [id number] #### [facility] [address] [place] [address] Specific gravity (U) [Rel density] 1.015 Invalid Interpretation Code 1.005-1.030 [facility] Comment on above: Performed By: #### 4 [id number] #### [facility] [address] [place] [address] Urobilinogen (U) [Mass/Vol] Negative Normal Negative [facility] Comment on above: Performed By: #### 4 [id number] #### [facility] [address] [place] [address] Type of Urine collection method Clean Catch Normal [facility] Comment on above: Performed By: #### 4 [id number] #### [facility] [address] [place] [address] URINALYSISOrdered By: SYSTEM SYSTEM on 03-15-2024 Bilirubin Ql (U) Negative Normal Negativemg/ d L [facility] UA Auto SS Clarity (U) Clear (03/15/24 4:39 AM) Normal Clear [facility] UA Auto SS Color (U) Light-Yellow 1 (03/15/24 4:39 AM) Normal Yellow [facility] UA Auto SS Comment on above: Interpretive Data: M icroscopic readings are only performed on those samples that meet specific criteria set forth by [facility]. Glucose Ql (U) Negative Normal Negativemg/d L [facility] UA Auto SS Hemoglobin Auto test strip [...] AM) Invalid Interpretation Code 1.005 - 1.030 [facility] UA Auto SS Urobilinogen (U) [Mass/Vol] Negative Normal Negativemg/d L [facility] UA Auto SS URINALYSISOrdered By: Kristan Sanchez on 03-15-2024 UA Spec Desc Clean Catch (03/15/24 4:39 AM) Normal [facility] UA Auto SS US Limitedon 03-15 [place] [...] Sanchez FINAL REPORT Dictated: 03/15/2024 11:41 am dEuard Pierce DO Signed (Electronic Signature): 03/15/2024 11:41 am Signed by: Eduard Pierce DO Transcribed by: JACQUES Technologist: AGNIESZKA Technical Comments BINDU 09/09/2024 BINDU Obtained BINDU by LMP History 1 Para 0 Transabdominal Ultrasound Performed FHR (bpm) 135 Cervical Length (cm) 3.5 Normal [facility] URETHRITIS/DISCHARGE PLUS VA GINITIS (HTRX)on 03-05-2024 ATOPOBIUM VAGINAE 0 [facility] ATOPOBIUM VAGINAE Not detected [facility] BVAB 2,3 (BACTERIAL VAGINOSIS ASSOCIATED BACTERIA 2, 3); MOBILUNCUS SPP 0 [facility] BVAB 2,3 (BACTERIAL VAGINOSIS ASSOCIATED BACTERIA 2, 3); MOBILUNCUS SPP Not detected [facility] MINERVA ALBICANS, PARAPSILOSIS, TROPICALIS 0 [facility] MINERVA ALBICANS, PARAPSILOSIS, TROPICALIS Not detected [facility] MINERVA GLABRATA 0 [facility] MINERVA GLABRATA Not detected [facility] MINERVA KRUSEI 0 [facility] MINERVA KRUSEI Not detected [facility] CHLAMYDIA TRACHOMATIS 0 [facility] CHLAMYDIA TRACHOMATIS Not detected N [facility] GARDNERELLA VAGINALIS 0 [facility] GARDNERELLA VAGINALIS Not detected N [facility] MEGASPHAERA (TYPES 1, 2) 0 [facility] MEGASPHAERA (TYPES 1, 2) Not detected [facility] MYCOPLASMA GENITALIUM 0 [facility] MYCOPLASMA GENITALIUM Not detected N [facility] NEISSERIA GONORRHOEAE 0 [facility] NEISSERIA GONORRHOEAE Not detected N [facility] TRICHOMONAS VAGINALIS 0 [facility] TRICHOMONAS VAGINALIS Not detected N [facility] Urinalysis macro (dipstick) panel (U)on 03-03-2024 Bilirubin, UA Negative Negative - 4(70) +++ mg/dL [facility] Blood, UA Positive Negative - 50 Moncho/mcL [facility] Comment on above: trace Clarity, UA Clear [facility] Color, UA Yellow [facility] Glucose, UA Positive Negative - 1999(110) ++++ mg/dL [facility] Comment on above: 250 mg Interpretation and review of laboratory results Abnormal [facility] Ketones, UA Negative Negative - 160(16) ++++ mg/dL [facility] Leukocytes, UA Negative Negative - 500+++ Bhavik/mcL [facility] Nitrite, UA Negative Negative - Positive [facility] pH, UA 5.5 5 - 9 [facility] Protein, UA Negative Negative - 2000(20) ++++ mg/dL [facility] Spec Grav, UA 1.015 1 - 1.03 [facility] Urobilinogen, UA 0.2 0.2 - 12 mg/dL [facility] ALL CBC WITH AUTO DIFFon BASOPHILS ABSOLUTE AUTO 0.1 [facility] Basophils/100 WBC (Bld) 0.4 % 0.2 - 2.0 % [facility] Eosinophils/100 WBC (Bld) 1.5 % 0.9 - 7.0 % [facility] Erythrocyte distribution width (RBC) [Ratio] 12.4 % 11.0 - 15.0 % [facility] Hematocrit (Bld) [Volume fraction] 38.9 % 36.0 - 48.0 % [facility] Hemoglobin (Bld) [Mass/Vol] 13.2 g/dL 12.0 - 16.0 g/dL [facility] IMMATURE GRANULOCYTES ABS AUTO 0.05 High [facility] Immature granulocytes/100 WBC (Bld) 0.4 % 0.0 - 0.5 % [facility] Interpretation and review of laboratory results Abnormal [facility] LYMPHOCYTES ABSOLUTE AUTO 3.4 [facility] Lymphocytes/100 WBC (Bld) 23.8 % 20.5 - 60.0 % [facility] MCH (RBC) [Entitic mass] 29.9 pg 26.7 - 34.0 pg [facility] MCHC (RBC) [Mass/Vol] 33.9 g/dL 29.9 - 35.2 g/dL [facility] MCV (RBC) [Entitic vol] 88.2 fL 81.0 - 99.0 fL [facility] MONOCYTES ABSOLUTE AUTO 0.8 [facility] Monocytes/100 WBC (Bld) 5.7 % 1.7 - 12.0 % [facility] NEUTROPHILS ABSOLUTE AUTO 9.7 High [facility] Neutrophils/100 WBC (Bld) 68.2 % 43.0 - 75.0 % [facility] Platelet mean volume (Bld) [Entitic vol] 9.4 fL Low 9.5 - 13.5 fL [facility] TBH EO # 0.2 [facility] TB PLT [address] [facility] RBC 4.41 [facility] WBC 14.1 High [facility]INIS[facility] BOX TESTon 02-12-2024 BOX TEST SENT OUT Y [facility] BOX1 [facility] BOX2 02/12/24 [facility] Ql (U)o n 01-31-2024 Interpretation and review of laboratory results Abnormal [facility] [facility] Preg Test, Ur Positive [facility] Urinalysis macro (dipstick) panel (U)on 01-31-2024 Bilirubin, UA Negative Negative - 4(70) +++ mg/dL [facility] Blood, UA Negative Negative - 50 Moncho/mcL [facility] Clarity, UA Clear [facility] Color, UA Yellow [facility] Glucose, UA Negative Negative - 2000(110) ++++ mg/dL [facility] Interpretation and review of laboratory results Normal [facility] Ketones, UA Negative Negative - 160(16) ++++ mg/dL [facility] Leukocytes, UA Negative Negative - 500+++ Bhavik/mcL [facility] Nitrite, UA Negative Negative - Positive [facility] pH, UA 6.0 5 - 9 [facility] Protein, UA Negative Negative - 2000(20) ++++ mg/dL [facility] Spec Grav, UA 1.020 1 - 1.03 [facility] Urobilinogen, UA 1.0 0.2 - 12 mg/dL [facility]H PREG QUANT HCGon 024 HCG QUANTITATIVE 250 mIU/mL [facility] Comment on above: 5-50 0.2-1 WEEK 50-500 1-2 WEEKS 100-5,000 2-3 WEEKS 500-10,000 3-4 WEEKS 1,000-50,000 4-5 WEEKS 10,000-100,000 5-6 WEEKS 15,000-200,000 6-8 WEEKS 10,000-100,000 2-[facility] 024 HCG QUANTITATIVE 120 mIU/mL [facility] Comment on above: 5-50 0.2-1 WEEK 50-500 1-2 WEEKS 100-5,000 2-3 WEEKS 500-10,000 3-4 WEEKS 1,000-50,000 4-5 WEEKS 10,000-100,000 5-6 WEEKS 15,000-200,000 6-8 WEEKS 10,000-100,000 2-3 MONTHS [facility] ALL PROGESTERONEon 4 PROGESTERONE 9.9 ng/mL . [facility] Comment on above: Follicular phase 0.1 - 0.9 Luteal phase 1.8 - 23.9 Ovulation phase 0.1 - 12.0 First trimester 11.0 - 44.3 Second trimester 25.4 - 83.3 Third trimester 58.7 - 214.0 Postmenopausal 0.0 - 0.1 Performed at: [facility] [address] [id number] Stopperer Assembler: Jun Mike PhD, Phone: [phone] [facility] Ambulatory Visit Summaryon 0 11-15-2023 Ambulatory Visit Summary Ambulatory Visit Summary RACQUEL YADAV :1995 Visit Date:11/15/2023 Ambulatory Visit Instructions Your Diagnosis Hand pain, right BMI 32.0-32.9,adult Obese Your Care Team Attending Physician - Jeane Butterfield Primary Care Physician - Dave Red MD [...] Follow Up with Teofilo BRANDT, Dave Rosen, [facility] When: Where: [place] [address]- Medications What When Instructions Unchanged letrozole (letrozole [...] water. ? Keep raw meats separate from axdyv-wz-lns foods, such as fruits and vegetables. ? clinical auditor, meat, poultry, and eggs to the (more content not included)... Normal [facility] Family Medicine Office/Clini c Noteon 11-15-2023 [...] with voice recognition software. Occasional wrong-word or ?wwavj-b-wiej? substitutions may have occurred due to the [...] of the extremity. She may also use ydal-lkw-wovranh analgesics such as ibuprofen or Tylenol per package instructions for comfort. Declines need for work note today. 1. Hand pain, right (M79.641: Pain in right hand) Hand x-ray was negative. Patient encouraged to use rest, ice, compression and elevation for symptom management. As above can use uxcm-oii-syltvle analgesics such as Tylenol or ibuprofen per [...] When Contact Information Teofilo BRANDT, Dave Rosen, [facility] [place] [place] [place] [address]- Additional Instructions: Patient Education Healthy Eating Exercising to Lose Weight BMI for Adults How to Use Cold Therapy, Ueve-ql-Irjk Hand Pain Problem List/Past Medical History Ongoing [...] 09/20/2018 Employment/School Employed, Work/School description: Works at [employer]. Previous employment/school: Student. Activity level: Occasional physical work. Highest education level: Some college. Operates hazardous equipment: No., 09/20/2018 Exercise Exercise duration: 4. Exercise frequency: 5-6 times/week. Self assessment: Fair condition. Exercise type: Walking., (more content not included)... [facility] Comment on above: Result Comment: [...] in mGy = . DAP = . [facility] C Urineon 07-25-2023 Bacteria identified Cx [...] This test was performed at: [facility], [address] [place] [address], [id number]- , , Normal [facility] Comment on above: Performed By: #### [id number] #### [facility] [address] [place] [id number] Ambulatory Visit Summaryon 0 07-23-2023 Ambulatory Visit Summary RACQUEL YADAV :1995 Visit Date:07/23/2023 Ambulatory Visit Instructions Your Diagnosis Urinary frequency BMI 32.0-32.9,adult UTI symptoms Your Care Team Attending Physician - Cristi Saldana PA-C. Primary Care Physician - Dave Red MD [...] Follow Up with Teofilo BRANDT, Dave Rosen, [facility] When: Where: [address] [place] [address]- Medications What When Instructions Unchanged letrozole (letrozole [...] keep your urine pale yellow. ? Take ayjz-csl-modicmi or prescription medicines. ? Eat foods that are high in fiber, such as beans, whole grains, and fresh fruits and vegetables. ? Limit foods that are high in fat and processed sugars, such as fried or sweet foods. General instructions ? Take sqvu-dsx-fpylthg and prescription medicines only as told by [...] muscles that help control urination. ? Take txbi-ggq-zghdgjk and prescripti (more content not included)... Normal [facility] Family Medicine Office/Clini c Noteon 07-23-2023 [...] denies Pt had progesterone at beginning of [facility], letrozole Pt is trying to get - has never ovulated- not sure if this is the pain she is feeling History of Present Illness I have reviewed and verified the staff HPI to be accurate for this encounter. Portions of this record have been created with voice recognition software. Occasional wrong-word or ?ylogs-u-wcrq? substitutions may have occurred due to the [...] with this as she should contact her SYSTEMS LIBRARIAN Dr. Vaughan for further evaluation in which [...] of Est. Patient Straight Fwd 10-19 Min [id number] 2. BMI 32.0-32.9,adult (Z68.32: Body mass index [BMI] 32.0-32.9, adult) The standard range for ages 18 and older is >=18.5 and < 25 kg/m2. Your BMI today was above this range, this falls in the overweight to obese category and there are medical benefits to weight loss. We can offer counselling, referral, a (more content not included)... Normal [facility] Comment on above: Result Comment: Elec [...] numbers. This can be done either in [place]ic (U.S.) or metric measurements. Note that charts and online BMI calculators are available to help you find your BMI quickly and easily without having to do these calculations yourself. To calculate your BMI in [place]ic (U.S.) measurements: 1. Measure your weight in [...] for Disease Control and Prevention: www.cdc.gov ? [place] Heart Association: www.heart.org ? National Heart, Lung, and Blood [place]: www.nhlbi.nih.gov Summary ? Body mass index (BMI) is a number that is calculated from a person's weight and height. ? BMI may help estimate how much of a person's weight is composed of fat. BMI can help identify those who may be at higher risk for certain medical problems. ? BMI can be measured using Icelandic measurements or metric measurements. ? BMI charts are used to identify whether you are underweight, normal weight, overweight, or obese. This information is not intended to replace advice given to you by your health care provider. Make sure you discuss any questions you have with your health care provider. Document Revised: 01/14/2020 Document Reviewed: 11/21/2019 [employer] Patient Education ? 2022 [employer]. Urology Urinary Frequency, Adult Urinary frequency means [...] at home: (more content not included)... Normal [facility] Provider Letteron 07-23-2023 Provider Letter July 23, 2023 RACQUEL YADAV [address] [place] [address] : 1995 To Whom It May Concern, Please excuse above patient from work. Date of Illness: 07/23/2023 May Return to Work On:07/24/2023 Sincerely, [facility] [address] [place] [address], [place] [address] Normal [facility] Cytology Cervical or vaginal smear or scraping studyon 04-24-2023 [facility] SYSTEMS LIBRARIAN - Office Visiton SYSTEMS LIBRARIAN - Office Visit Diagnoses/Problems Assessed History of PCOS (polycystic ovarian syndrome) (256.4) (E28.2) Fertility testing (V26.21) (Z31.41) Screening for STD (sexually transmitted disease) (V74.5) (Z11.3) PCOS (polycystic ovarian syndrome) (256.4) (E28.2) Oligomenorrhea (626.1) (N91.5) Orders Anti Mullerian Hormone; Status:Active; Requested for:46Qpg5984; 17-Hydroxyprogesterone , Serum; Status:Active; Requested for:71Ykn1608; Antithyroid Perox. Ab; Status:Active; Requested for:75Erz2204; Complete Blood Count; Status:Active; Requested for:47Yen4347; DHEA Sulfate, Serum; Status:Active; Requested for:00Pdc2764; GC + Chlamydia By Amplified Detection; Status:Active; Requested for:08Jxw7408; HCG, Beta Quantitative; Status:Active; Requested for:87Oeg2699; Hemoglobin A1C; Status:Active; Requested for:44Ses8621; Hepatitis B Surface Antigen; Status:Active; Requested for:68Boi8415; Hepatitis C Antibody Test; Status:Active; Requested for:93Tnc2641; HIV 1/2 ANTIGEN/ANTIBODY SCREEN WITH REFLEX TO CONFIRMATION; Status:Active; Requested for:76Owr1685; IO Ultrasound, pelvic complete; Status:Hold For - Scheduling; Requested for:13Dsf7766; Radiologist to Determine Optimal Study : Y [...] Blood type [ ] Genetic Screen with [facility] - will consider [x ] Take vitamins, vitamin D [x ] Return to see me after workup complete to discuss management plan [x ] Education: New infertility packet to be mailed to patient [x ] Engaged MD albin Johnson MD [facility] [phone] [place] [phone] [place] Provider Impressions 24 year old with oligomenorrhea, [...] Blood type [ ] Genetic Screen with [facility] - will consider [x ] Take vitamins, vitamin D [x ] Return to see me after workup complete to discuss management plan [x ] Education: New infertility packet to be mailed to patient [x ] Engaged MD albin Johnson MD [facility] [phone] [place] [phone] [place] Appointment Duration:. 45 minutes; greater than half [...] trying for 4 years. History of Present Rkkfgjy2706/09/2020 11:15AM RACQUEL VAZQUEZ , 24 year is contacted for an (audio-visual, or audio only) Telehealth visit. Today's visit was provided through telemedicine conferencing: Using [employer] platform. Consent: The concept of telemedicine? 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 Prior established pregnancies: No Toxic habits: Occasional [...] Recorded: 09Jun2020 11:02AM Height5 ft 5 in Rswseg024 lb BMI Mpbltqsgtm88.46 BSA Calculated1.82 Tobacco Useb) No Fall Screeninga) No falls within the last year [id number] Gravida0 Para0 Pain Scale0 Physical Exam This is a telehealth appointment Signatures Electronically signed by : Rayshawn Johnson MD; Jun 09 2020 11:52AM EST (Author) Normal [facility] HUMERUS LEFTon 12-01-2016 [facility] LEFT [facility] [address] [place] [address] ========Patient Name: RACQUEL VAZQUEZ : 1995Sex: FAge: Race: WhiteMRN: [id number]. Location: Patient Status: Date: 12/01/2016 4:25:00 PMCompleted Date: 12/01/2016 04:28 PMRequesting Provider: CARI GOOD Attending Provider: Report Copy To: Signs & Symptoms: S42.352D Displ commnt fx shaft of humer, l arm, 7thD [id number]: AthenaComments: , , Views (X-RAY, HUMERUS): AP, Lateral , Weight Bearing?: Y , With or Without Brace/Cast/Collar: Without , With Magnification Marker?: N , , , Ordering Provider - CARI GOOD MD , Rendering Provider - CARI GOOD MD , Exam: HUMERUS LEFTAccession #: [id number] HUMERUS LEFT 12/01/2016 4:28 PM EDT SIGNS [...] Electronically signed by:Subhash Campos M.D.. Transcribed by: [email or web address], User Resident: Electronically Signed by: SUBHASH CAMPOS @ 12/01/2016 04:35 PM Normal [facility] Comment on above: Order Comment: , , V iews (X-RAY, HUMERUS): AP, Lateral , Weight Bearing?: Y , With or Without Brace/Cast/Collar: Without , With Magnification Marker?: N , , , Ordering Provider - CARI GOOD MD , Rendering Provider - CARI GOOD MD , Vital Signs Date Time Vital Sign Value Performing Clinician Facility 05-20-2024 09:21-0500 Body mass index (BMI) [Ratio] 32.95 kg/m2 [employer] DO Work Phone: [facility] 05-20-2024 09:21-0500 Body weight 89.81 kg [employer] DO Work Phone: [facility] 05-20-2024 09:21-0500 Diastolic blood pressure 70 mm[Hg] Nakul Clement DO Work Phone: [facility] 05-20-2024 09:21-0500 Systolic blood pressure 120 mm[Hg] Nakul Clement DO Work Phone: [facility] 04-21-2024 09:47-0500 Body mass index (BMI) [Ratio] 32.45 kg/m2 Tamara URIOSTEGUI Work Phone: [facility] 04-21-2024 09:47-0500 Body weight 88.45 kg Tamara URIOSTEGUI Work Phone: [facility] 04-21-2024 09:47-0500 Diastolic blood pressure 70 mm[Hg] Tamara URIOSTEGUI Work Phone: [facility] 04-21-2024 09:47-0500 Systolic blood pressure 120 mm[Hg] Tamara URIOSTEGUI Work Phone: [facility] 03-19-2024 13:34-0500 Body mass index (BMI) [Ratio] 31.18 kg/m2 Nakul Clement DO Work Phone: [facility] 03-19-2024 13:34-0500 Body weight 85 kg Nakul Clement DO Work Phone: [facility] 03-19-2024 13:34-0500 Diastolic blood pressure 70 mm[Hg] Nakul Clement DO Work Phone: [facility] 03-19-2024 13:34-0500 Systolic blood pressure 114 mm[Hg] Nakul Clement DO Work Phone: [facility] 03-15-2024 04:04-0500 Body temperature 98.42 [degF] Kaylinn Dokken [facility] 03-15-2024 04:04-0500 Diastolic blood pressure 95 mm[Hg] Kaylinn Dokken [facility] 03-15-2024 04:04-0500 Heart rate 94 /min [facility]cho [facility] 03-15-2024 04:04-0500 Respiratory rate 16 /min [facility] 03-15-2024 04:04-0500 SaO2% (BldA) [Mass fraction] 97 % [facility] 03-15-2024 04:04-0500 Systolic blood pressure 123 mm[Hg] Poncho [facility] 03-03-2024 15:08-0400 Body mass index (BMI) [Ratio] 31.78 kg/m2 Nakul Clement DO Work Phone: [facility] 03-03-2024 15:08-0400 Body weight 86.64 kg Nakul Clement DO Work Phone: [facility] 03-03-2024 15:08-0400 Diastolic blood pressure 72 mm[Hg] Nakul Clement DO Work Phone: [facility] 03-03-2024 15:08-0400 Systolic blood pressure 118 mm[Hg] Nakul Clement DO Work Phone: [facility] 01-31-2024 16:20-0400 Body mass index (BMI) [Ratio] 31.25 kg/m2 [facility] Nurse [facility] 01-31-2024 16:20-0400 Body weight 85.19 kg [facility] Nurse [facility] 11-15-2023 12:56-0400 Blood Pressure Location Barby Victoriano [facility] 11-15-2023 12:56-0400 Body temperature 98.06 [degF] Barby Fabianer [facility] 11-15-2023 12:56-0400 Diastolic blood pressure 82 mm[Hg] Barby Pastrana [facility] 11-15-2023 12:56-0400 Heart rate 82 /min Barby Pastrana [facility] 11-15-2023 12:56-0400 Respiratory rate 18 /min Barby Pastrana [facility] 11-15-2023 12:56-0400 SaO2% (BldA) [Mass fraction] 99 % Barby Pastrana [facility] 11-15-2023 12:56-0400 Systolic blood pressure 120 mm[Hg] Barby Pastrana [facility] 07-23-2023 10:31-0400 Blood Pressure Location Cristi Les [facility] 07-23-2023 10:31-0400 Body temperature 98.24 [degF] Cristidrew Velardeey [facility] 07-23-2023 10:31-0400 Diastolic blood pressure 74 mm[Hg] Cristidrew Velardeey [facility] 07-23-2023 10:31-0400 Heart rate 81 /min Cristi Les [facility] 07-23-2023 10:31-0400 SaO2% (BldA) [Mass fraction] 97 % Cristidrew Velardeey [facility] 07-23-2023 10:31-0400 Systolic blood pressure 118 mm[Hg] Cristi Saldana [facility] 07-29-2021 18:50-0400 Body temperature 96.98 [degF] Mark [facility] 07-29-2021 18:50-0400 Diastolic blood pressure 58 mm[Hg] Mark [facility] 07-29-2021 18:50-0400 Heart rate 70 /min [facility] 07-29-2021 18:50-0400 Respiratory rate 12 /min [facility] 07-29-2021 18:50-0400 SaO2% (BldA) [Mass fraction] 99 % [facility] 07-29-2021 18:50-0400 Systolic blood pressure 100 mm[Hg] [facility] 07-29-2021 17:50-0400 Body temperature 97.52 [degF] [facility] 07-29-2021 17:50-0400 Diastolic blood pressure 60 mm[Hg] [facility] 07-29-2021 17:50-0400 Heart rate 70 /min [facility] 07-29-2021 17:50-0400 Respiratory rate 12 /min [facility] 07-29-2021 17:50-0400 SaO2% (BldA) [Mass fraction] 99 % [facility] 07-29-2021 17:50-0400 Systolic blood pressure 110 mm[Hg] Mark [facility] 07-29-2021 17:49-0400 Body temperature 97.52 [degF] [facility] 07-29-2021 17:49-0400 Diastolic blood pressure 79 mm[Hg] [facility] 07-29-2021 17:49-0400 Heart rate 69 /min [facility] 07-29-2021 17:49-0400 Respiratory rate 12 /min [facility] 07-29-2021 17:49-0400 SaO2% (BldA) [Mass fraction] 99 % [facility] 07-29-2021 17:49-0400 Systolic blood pressure 113 mm[Hg] Mark [facility] 07-29-2021 17:10-0400 Respiratory rate 24 /min [facility] 07-29-2021 17:05-0400 Respiratory rate 24 /min [facility] 07-29-2021 17:00-0400 Respiratory rate 27 /min [facility] 07-29-2021 14:40-0400 Heart rate 72 /min Mrak [facility] 07-29-2021 14:37-0400 Blood Pressure Location Mark [facility] 07-29-2021 14:37-0400 Mean blood pressure 93 mm[Hg] [facility] 07-29-2021 14:37-0400 Blood Pressure Location Mark [facility] 07-29-2021 14:37-0400 Body temperature 98.24 [degF] Mark [facility] 07-29-2021 14:37-0400 BP/Pulse Patient Position [facility] 07-29-2021 14:37-0400 Mean blood pressure 91 mm[Hg] [facility] Encounters Encounter Date Encounter Type Care Provider Facility Start: 05-20-2024 End: 05-20-2024 Bamboo flowsheet Nakul Clement DO Work Phone: [facility] Start: 05-20-2024 End: 05-20-2024 Bamboo flowsheet Nakul Clement DO Work Phone: [facility] Start: 05-20-2024 End: 05-20-2024 Office outpatient visit 15 minutes Nakul Clement DO Work Phone: [facility] Comment on above: 24 weeks gestation o f ; Second trimester ; Diabetes mellitus screening; Screening, , for anatomic survey Start: 04-21-2024 End: 04-21-2024 Bamboo flowsheet Tamara URIOSTEGUI Work Phone: [facility] Start: 04-21-2024 End: 04-21-2024 Bamboo flowsheet Tamara URIOSTEGUI Work Phone: [facility] Start: 04-21-2024 End: 04-21-2024 Office outpatient visit 15 minutes Tamara URIOSTEGUI Work Phone: [facility] Comment on above: Second trimester pre gnancy; Screening, , for anatomic survey; Nausea and vomiting in Start: 03-19-2024 End: 03-19-2024 Office outpatient visit 15 minutes Nakul Clement DO Work Phone: [facility] Comment on above: Abdominal cramping a ffecting Start: 03-15-2024 End: 03-15-2024 Emergency department patient visit Poncho [facility] Start: 03-03-2024 End: 03-03-2024 flow sheet [...] Department Unsolicited Start: 02-27-2024 End: 02-27-2024 ambulatory [facility] Facility:[facility] Start: 02-27-2024 End: 02-27-2024 Patient encounter procedure [facility] Start: 02-12-2024 End: 02-13-2024 Clinisync Result Encounter Nakul Clement DO Work Phone: [facility] Unsolicited Start: 02-12-2024 End: 02-13-2024 Clinisync Result Encounter Nakul Clement DO Work Phone: [facility] Unsolicited Start: 01-31-2024 End: 01-31-2024 Office outpatient visit 5 minutes [facility] Clement Nurse [facility] Comment on above: GA: 8w2d Start: 01-05-2024 End: 01-08-2024 Clinisync Result Encounter Nakul Clement DO Work Phone: [facility] Unsolicited Start: 01-05-2024 End: 01-08-2024 Clinisync Result Encounter Nakul Clement DO Work Phone: [facility] Unsolicited Start: 01-03-2024 End: 01-03-2024 Clinisync Result Encounter Nakul Clement DO Work Phone: [facility] Unsolicited Start: 01-03-2024 End: 01-03-2024 Clinisync Result Encounter Nakul Clement DO Work Phone: [facility] Unsolicited Start: 12-24-2023 End: 12-26-2023 Clinisync Result Encounter Nakul Clement DO Work Phone: [facility] Unsolicited Start: 12-24-2023 End: 12-26-2023 Clinisync Result Encounter Nakul Clement DO Work Phone: [facility] Unsolicited Start: 11-15-2023 End: 11-15-2023 ambulatory Barby Pastrana Facility:[facility] Start: 11-15-2023 End: 11-15-2023 Patient encounter procedure Barby Pastrana [facility] Start: 07-23-2023 End: 07-23-2023 Lab Drop off Cristi Saldana [facility] Start: 07-23-2023 End: 07-23-2023 ambulatory Cristi Saldana Facility:[facility] Start: 07-23-2023 End: 07-23-2023 Patient encounter procedure Cristi Saldana [facility] Start: 06-19-2023 End: 06-19-2023 Phys/qhp telephone evaluation 5-10 min Nakul Clement DO Work Phone: [facility] Comment on above: Female infertility Start: 09-21-2021 End: 09-21-2021 Lab Drop off Steph Brady [facility] Start: 07-29-2021 End: 07-29-2021 Admission to same day surgery center Mark Jessika ShenZuh[facility] Start: 12-01-2016 End: 12-02-2016 Ambulatory CARI GOOD Facility:[facility] Start: 11-01-2016 End: 11-02-2016 Ambulatory DEFAULT PHYSICIAN Facility:[facility] Procedures Date Procedure Procedure Detail Performing Clinician Start: 05-20-2024 Urnls dip stick/tabl et rgnt non-auto w/o micrscp Nakul Clement DO Work Phone: Start: 04-21-2024 Urnls dip stick/tabl et rgnt non-auto w/o micrscp Tamara URIOSTEGUI Work Phone: Start: 03-03-2024 Urnls dip stick/tabl et rgnt non-auto w/o micrscp Nakul Clement DO Work Phone: Start: 03-03-2024 URETHRITIS/DISCHARGE PLUS VAGINITIS (HTRX) Nakul Clement DO Work Phone: Start: 02-12-2024 ALL CBC WITH AUTO DIFF Nakul Clement DO Work Phone: Start: 02-12-2024 BOX TEST Nakul Fazi o DO Work Phone: Start: 01-31-2024 Urnls dip stick/tabl et rgnt non-auto w/o micrscp Nakul Clement DO Work Phone: Start: 01-05-2024 [facility] PREG QUANT HCG Core y Clmeent DO Work Phone: Start: 01-03-2024 [facility] PREG QUANT HCG Core y Clement DO Work Phone: Start: 12-24-2023 ALL PROGESTERONE Nakul Clement DO Work Phone: Start: 04-24-2023 Cytp cerv/vag auto t hin layer prep mnl screen Nakul Clement DO Work Phone: Start: 09-15-2016 left humerus ORIF Mark Moffett Appendectomy Mark Moffett Plan of Treatment Date Care Activity Detail Author Start: 06-17-2024 End: 06-17-2024 Patient encounter procedure 06/17/2024 9:10 AM EST Routine [facility] [address] [place] [id number] Nakul Vaughan, DO [address] [place] [address] [facility] Start: 05-27-2024 End: 05-27-2024 Professional / ancillary services management 05/27/2024 2:30 PM EST Ancillary Procedure [facility] [address] [place] [id number] [facility] Start: 05-20-2024 End: 05-20-2025 CBC panel - Blood by Automated count CBC Lab Routine Diabetes mellitus screening Expected: 05/20/2024 (Approximate), Expires: 05/20/2025 [facility] Work Phone: Comment on above: Expected: 05/20/2024 (Approximate), Expires: 05/20/2025 Start: 05-20-2024 End: 05-20-2025 Measurement of glucose 1 hour after glucose challenge for glucose tolerance test Glucose tolerance, 1 hour Lab Routine Diabetes mellitus screening Expected: 05/20/2024 (Approximate), Expires: 05/20/2025 [facility] Comment on above: Expected: 05/20/2024 (Approximate), Expires: 05/20/2025 Start: 05-20-2024 End: 05-20-2025 US for US OB 14+ weeks anatomy scan Imaging Routine Screening, , for anatomic survey Expected: 05/20/2024, Expires: 05/20/2025 [facility] Comment on above: Expected: 05/20/2024 , Expires: 05/20/2025 Start: 05-20-2024 End: 05-20-2024 Patient encounter procedure [facility] Comment on above: Arrived Start: 04-21-2024 End: 04-21-2025 US for US OB ANATOMY SINGLE W US OB CERVICAL LENGTH Imaging Routine Screening, , for anatomic survey Expected: 04/21/2024 (Approximate), Expires: 04/21/2025 [facility] Work Phone: Comment on above: Expected: 04/21/2024 (Approximate), Expires: 04/21/2025 Start: 04-21-2024 End: 04-21-2024 Patient encounter procedure [facility] Comment on above: Arrived Start: 03-31-2024 End: 03-31-2024 Patient encounter procedure 03/31/2024 4:00 PM EST Routine [facility] [address] [place] [id number] Tamara Gould PA [address] [place], [place] [id number] [facility] Start: 03-26-2024 End: 03-26-2024 Professional / ancillary services management 03/26/2024 3:00 PM EST Ancillary Procedure [facility] [address] [place] [id number] [facility] Start: 03-06-2024 End: 03-06-2024 Professional / ancillary services management 03/06/2024 12:30 PM EDT Ancillary Procedure [facility] [address] [place] [id number] [facility] Start: 03-03-2024 End: 03-03-2024 Patient encounter procedure [facility] Comment on above: Arrived Start: 03-03-2024 End: 03-03-2025 US Pelvis transvaginal US OB transvaginal Imaging Routine History of loop electrosurgical excision procedure (LEEP) of cervix affecting , antepartum Expected: 03/03/2024 (Approximate), Expires: 03/03/2025 [facility] Comment on above: Expected: 03/03/2024 (Approximate), Expires: 03/03/2025 Start: 01-31-2024 End: 01-30-2025 ABO/Rh ABO/Rh Lab Routine Missed menses , unspecified gestational age Expected: 01/31/2024 (Approximate), Expires: 01/30/2025 [facility] Comment on above: Expected: 01/31/2024 (Approximate), Expires: 01/30/2025 Start: 01-31-2024 End: 01-30-2025 Blood type and Indirect antibody screen panel - Blood Type and screen Lab Routine Missed menses , unspecified gestational age Expected: 01/31/2024 (Approximate), Expires: 01/30/2025 [facility] Work Phone: Comment on above: Expected: 01/31/2024 (Approximate), Expires: 01/30/2025 Start: 01-31-2024 End: 01-30-2025 Drugs of abuse panel - Urine by Screen method Rapid drug screen, urine Lab Routine , unspecified gestational age Encounter for supervision of normal first in first trimester Expected: 01/31/2024 (Approximate), Expires: 01/30/2025 [facility] Comment on above: Expected: 01/31/2024 (Approximate), Expires: 01/30/2025 Start: 01-31-2024 End: 01-30-2025 US Pelvis transvaginal US OB transvaginal Imaging Routine Missed menses Expected: 01/31/2024 (Approximate), Expires: 01/30/2025 [facility] Comment on above: Expected: 01/31/2024 (Approximate), Expires: 01/30/2025 Bacteria identified in Urine by Culture Urine culture Microbiology Routine Missed menses Ordered: 01/31/2024 [facility] Comment on above: Ordered: 01/31/2024 CBC W Auto Differential panel - Blood CBC and differential Lab Routine Missed menses , unspecified gestational age Ordered: 01/31/2024 [facility] Comment on above: Ordered: 01/31/2024 CHLAMYDIA TRACHOMATI S (GENITO/STI) CHLAMYDIA TRACHOMATIS (GENITO/STI) Lab Routine Vaginal discharge during , antepartum Ordered: 03/03/2024 [facility] Comment on above: Ordered: 03/03/2024 Hemoglobin A1c/Hemoglobin.total in Blood Hemoglobin A1c Lab Routine Missed menses , unspecified gestational age Ordered: 01/31/2024 [facility] Comment on above: Ordered: 01/31/2024 Hepatitis B virus surface Ag [Presence] in Serum or Plasma by Immunoassay Hepatitis B surface antigen Lab Routine Missed menses , unspecified gestational age Ordered: 01/31/2024 [facility] Comment on above: Ordered: 01/31/2024 Hepatitis C virus Ab [Presence] in Serum or Plasma by Immunoassay Hepatitis C antibody Lab Routine Missed menses , unspecified gestational age Ordered: 01/31/2024 [facility] Comment on above: Ordered: 01/31/2024 HIV-1/HIV-2 antigen/antibody combination immunoassay HIV-1 and HIV-2 antibodies Lab Routine Missed menses , unspecified gestational age Ordered: 01/31/2024 [facility] Comment on above: Ordered: 01/31/2024 Neisseria gonorrhoea e DNA [Presence] in Unspecified specimen by AYE with probe detection Neisseria gonorrhea DNA probe, direct Lab Routine Vaginal discharge during , antepartum Ordered: 03/03/2024 [facility] Comment on above: Ordered: 03/03/2024 Reagin Ab [Presence] in Serum by RPR RPR Lab Routine Missed menses , unspecified gestational age Ordered: 01/31/2024 [facility] Comment on above: Ordered: 01/31/2024 Rubella antibody, IgG Rubella an tibody, IgG Lab Routine Missed menses , unspecified gestational age Ordered: 01/31/2024 [facility] Comment on above: Ordered: 01/31/2024 SURESWAB(R) ADVANCED VAGINITIS PLUS, TMA SURESWAB(R) ADVANCED VAGINITIS PLUS, TMA Pathology and Cytology Routine Vaginal discharge during , antepartum Ordered: 03/03/2024 [facility] Work Phone: Comment on above: Ordered: 03/03/2024 Payers Date Payer Category Payer Unknown [id number] 1995 Unknown [id number] [id number] 1994 Unknown [id number] [id number] [id number] 1994 Unknown [id number] 2.16.8 [id number] 1994 Unknown [id number] 2.16.8 [id number] 1994 Unknown [id number] 2.16.8 [id number] 1994 Unknown [id number] 2.16.8 [id number] 1994 Unknown [id number] 2.16.8 [id number] Unknown [id number] Unknown Social History Date Type Detail Facility Start: 12-14-2020 End: 11-15-2023 Tobacco smoking status Never smoked tobacco (finding) [facility] Comment on above: patient denies Tobacco smoking status Never [facility] Comment on above: patient denies Sex Assigned At Female [facility] Tobacco smoking stat [facility] Tobacco smoking consumption unknown [facility] Start: 1995 Sex [facility] Start: 01-09-2023 Gender identity Identifies as female gender (finding) [facility] Start: 01-09-2023 Sexual orientation Heterosexual (fin ding) [facility] Start: 12-18-2023 [facility] Go[facility] Date Patient Goal Desired Activity /State Personal health goal Functional Status Date Assessment Result Facility 03-15-2024 Functional Status N/A [facility] 11-15-2023 Functional Status N/A [facility] 07-23-2023 Functional Status N/A [facility] Clinical Notes 07-29-2021 to 05-20-2024 Pretty Art LPN - 05/20/2024 9:10 AM MOODY Hines - 04/21/2024 8:30 AM Celestine Art LPN - 03/19/2024 1:20 PM EST Note Date & Type Note Facility 05-20-2024 History of Present illness Narrative Reason for Appointment: Patient ID: Racquel Yadav is a 28 y.o. female who presents for Routine Visit Patient presents today for Return OB appointment. MEDICATIONS Current Outpatient Medications Medication Instructions ondansetron ODT (ZOFRAN-ODT) 4 mg, Oral, Every 6 hours promethazine (PHENERGAN) 12.5 mg, Oral, Every 6 [...] nursing note reviewed. Exam conducted with a gallery or museum guide present. Vitals: Estimated body mass index is 32.95 kg/m as calculated from the following: Height as of 12/20/23: 5' 5 . Weight as of this encounter: 198 lb. BP: 120/70 Patient's last menstrual period was 12/04/2023. ASSESSMENT & PLAN ICD-10-CM 1. 24 weeks gestation of Z3A.24 POCT urinalysis dipstick manually resulted 2. Second trimester Z34.92 POCT urinalysis dipstick manually resulted 3. Diabetes mellitus screening Z13.1 CBC Glucose tolerance, 1 hour CBC Glucose tolerance, 1 hour 4. Screening, , for anatomic survey Z36.89 US OB 14+ weeks anatomy scan US OB 14+ weeks anatomy scan Patient presents today for a routine obstetrics appointment. Patient is currently 24w0d with a Estimated Date of Delivery: 09/09/24. Pt given anatomy scan and glucose screening orders given. Pt has complaints of swelling- addressed with pt. Pt to return in 4 weeks for scheduled OB appt. Documented by Pretty Art LPN on behalf of: Nakul Vaughan DO documented in this encounter [facility] 04-21-2024 History of Present illness Narrative Reason for Appointment: Patient ID: Racquel Yadav is a 28 y.o. female who presents for Routine Visit Patient presents today for Return OB appointment. MEDICATIONS Current Outpatient Medications Medication Instructions ondansetron ODT (ZOFRAN-ODT) 4 mg, Oral, Every 6 hours promethazine (PHENERGAN) 12.5 mg, Oral, Every 6 [...] Exam Constitutional: Appearance: Normal appearance. She is normal weight. HENT: Head: Normocephalic. Cardiovascular: Rate and Rhythm: Normal rate. Pulses: Normal pulses. Pulmonary: Effort: Pulmonary effort is normal. Breath sounds: Normal breath sounds. Abdominal: Palpations: Abdomen is soft. Musculoskeletal: General: Normal range of motion. Neurological: General: No focal deficit present. Mental Status: She is alert and oriented to person, place, and time. Psychiatric: Mood and Affect: Mood normal. Behavior: Behavior normal. Thought Content: Thought content normal. Judgment: Judgment normal. Vitals and nursing note reviewed. Vitals: Estimated body mass index is 31.18 kg/m as calculated from the following: Height as of 12/20/23: 5' 5 . Weight as of 03/19/24: 187 lb 6.4 oz. BP: Patient's last menstrual period was 12/04/2023. ASSESSMENT & PLAN ICD-10-CM 1. Second trimester Z34.92 POCT urinalysis dipstick manually resulted 2. Screening, , for anatomic survey Z36.89 US OB ANATOMY SINGLE W US OB CERVICAL LENGTH 3. Nausea and vomiting in O21.9 ondansetron ODT (Zofran-ODT) 4 MG disintegrating tablet Return OB: Patient presents today for a routine obstetrics appointment. Patient is currently 19w6d . Patient states she is doing well but has complaints of being tired due to current . Patient has verbalizes frequent movement. labor precautions was discussed/given and patient was instructed to perform kick counts three times a day. Orders Placed This Encounter Procedures US OB ANATOMY SINGLE W US OB CERVICAL LENGTH POCT urinalysis dipstick manually resulted Follow Up: Patient is to return to office in 2 week for routine OB appointment. Documented by Brie Cardenas MA on behalf of: MOODY Gilman documented in this encounter [facility] 03-19-2024 History of Present illness Narrative Reason [...] nursing note reviewed. Exam conducted with a gallery or museum guide present. Vitals: Estimated body mass index is [...] Nakul Vaughan DO documented in this encounter [facility] 03-17-2024 Note Microbiology PROCEDURE: Cervical Culture [R1] [...] MYRA=mcg/m;(mg/L), S*=Predicted susceptible interp, R*=Predicted resistant interp __ EC Antibiotic MYRA Dilutn MYRA Interp Ampicillin [...] R1: This test was performed at: [facility], [address] [place] [address], [address] , , [facility] Comment on above: Performed By: #### 1 [id number] #### [facility] [address] [place] [id number] 03-15-2024 Evaluation + Plan note Extrac hernesto from: Title:ED Note Author:SocorroKristan antonio DOlory Norris Date :03/15/24 Vaginal bleeding in pregnanc [...] is discharged home to follow-up with her LOT TECHNICIAN physician educated on return precautions. Additional diagnosis: Threatened [facility] 11-09-2024 Hospital Discharge instructions Follow Up Care 03/15/2024 04:00:46 With:Nakul VAUGHAN Address: [address] , [place] [address]- Business (1) When:03/18/2024 08:03:16 With:Dave Red Address: [place] [address]- Business (1) When:Within 3 Day([address]) [facility] 10-28-2024 History of Present illness Narrative* Yuliet Elizalde, ISAIAH - 03/03/2024 2:50 PM EDT Reason for [...] nursing note reviewed. Exam conducted with a gallery or museum guide present. Vitals: Estimated body mass index is [...] or undercooked meat, and stay away from [facility]. Patient has been consulted regarding any [...] of: Nakul Vaughan DO documented in this encounterSS[facility] [id number] History of Present illness Narrative* Jasmin Grimalod LPN - 01/31/2024 2:00 PM EDT Reason for Appointment: Patient ID: Racquel Yadav is a 28 y.o. female who presents for Amenorrhea Patient presents today for a Nurse OB Intake appointment. Patient is 8w2d with a Estimated Date of Delivery: 09/09/24 OB History Para Term AB Living 1 0 0 0 0 0 SAB IAB Ectopic Multiple Live Births 0 0 0 0 0 # Outcome Date GA Lbr Howard/2nd Weight Sex Type Anes PTL Lv 1 Current Current Medications: has a current medication list which includes the following prescription(s): ondansetron odt. Medical History: Active Ambulatory Problems Diagnosis Date [...] Allergies Vitals: Estimated body mass index is 31.25 kg/m as calculated from the following: Height as of 24: 5' 5 . Weight as of this encounter: 187 lb 12.8 oz. BP: Patient's last menstrual period was 12/04/2023. Assessment/Plan Diagnoses and all orders for this visit: Missed menses - Type and screen; Future - ABO/Rh; Future - CBC and differential - Hemoglobin A1c - RPR - Rubella antibody, IgG - Hepatitis B surface antigen - Hepatitis C antibody - HIV-1 and HIV-2 antibodies - Urine culture - US OB transvaginal; Future - POCT , urine manually resulted - POCT urinalysis dipstick manually resulted , unspecified gestational age - Type and screen; Future - ABO/Rh; Future - CBC and differential - Hemoglobin A1c - RPR - Rubella antibody, IgG - Hepatitis B surface antigen - Hepatitis C antibody - HIV-1 and HIV-2 antibodies - Rapid drug screen, urine; Future Encounter for supervision of normal first in first trimester - Rapid drug screen, urine; Future Nurse Note: OB Intake: Patient presents today for first OB visit. Patients history has been reviewed in great detail including any potential risks. Patient signed consent forms and patient desires testing in both trimesters. Patient currently has no complaints and has been advised to drink 6-8 glasses of water a day, eatno raw or undercooked meat, and stay away from [facility]. Patient has also been advised to not change litter boxes and eat 6 small meals a day. Patient has been consulted regarding the do's and don'ts ofpregnancy. Patient was given labs and all questions and concerns were answered. Follow Up: Patient is to return in 4 weeks for routine OB appointment. Follow Up: Patient is to have labs drawn at directed and return to office for initial OB appointment with provider. Patient may call office as needed with any concerns or questions. Nurse Visit Completed by: Jasmin Grimaldo LPN documented in this encounterSSM [facility] [id number] Hospital Discharge instructions Patient Education 11/15/2023 13:24:19 [...] soapy water. ?Keep raw meats separate from lladi-gl-eae foods, such as fruits and vegetables. ?clinical auditor, meat, poultry, and eggs to the recommended [...] include 1 slice of bread, 1 cup luiwx-qd-pjr cereal, 3 cups popcorn, or cup cooked [...] provider. Document Revised: 12/20/2021 Document Reviewed: 12/20/2021 [employer] Patient Education 2022 [employer]. 11/15/2023 13:24:01 Exercising to Lose Weight Exercising [...] your health care provider or diet and nutritional services director (dietitian). This may include: ?Eating fewer calories. [...] provider. Document Revised: 06/19/2021 Document Reviewed: 06/19/2021 [employer] Patient Education 2022 [employer] Inc[employer] 11/15/2023 13:23:59 BMI for Adults BMI for [...] numbers. This can be done either in [place]ic ([place] or metric measurements. Note that charts and online BMI calculators are available to help you find your BMI quickly and easily without having to do these calculations yourself. To calculate your BMI in [place]ic ([place] measurements: 1.Measure your weight in pounds [...] Centers for Disease Control and Prevention: www.cdc.gov [place] Heart Association: www.heart.org National Heart, Lung, and Blood [place]: www.nhlbi.nih.gov Summary Body mass index (BMI) is a number that is calculated from a person's weight and height. BMI may help estimate how much of a person's weight is composed of fat. BMI can help identify thosewho may be at higher risk for certain medical problems. BMI can be measured using [place]ic measurements or metric measurements. BMI charts are used to identify whether you are underweight, normal weight, overweight, or obese. This information is not intended to replace advice given to you by your health care provider. Make sure you discuss any questions you have with your health care provider. Document Revised: 01/14/2020 Document Reviewed: 11/21/2019 [employer] Patient Education 2022 [employer]. 11/15/2023 13:23:56 How to Use Cold Therapy, Bsml-da-Hezn How to Use Cold Therapy Cold therapy, [...] provider. Document Revised: 03/09/2021 Document Reviewed: 03/09/2021 [employer] Patient Education 2022 [employer]. 11/15/2023 13:23:47 Hand Pain Hand Pain Many [...] discomfort: Managing pain, stiffness, and swelling Take lxgw-kzz-zkriigs and prescription medicines only as told by [...] provider. Document Revised: 08/10/2022 Document Reviewed: 08/11/2021 [employer] Patient Education 2022 [employer]. Follow Up Care 11/15/2023 10:03:53 With:Teofilo BRANDT, Dave Rosen [facility] Address: [address] [place] [address]- When: Unknown [facility] 07-11-2024 NotePatient Education Nutrition Healthy [...] water. ? Keep raw meats separate from yutiv-dw-kdh foods, such as fruits and vegetables. ? clinical auditor, meat, poultry, and eggs to the recommended [...] include 1 slice of bread, 1 cup xraan-mc-vtp cereal, 3 cups popcorn, or ? cup [...] for about 5 teas (more content not included)...[facility] 07-23-2023 Evaluation + Plan note Diagnostic Tests Pending * Urine Culture 07/23/23 [facility]03-18-2024 Hospital Discharge instructions Patient Education 07/23/2023 [...] to keep your urine pale yellow. ?Take auwf-sfn-mhzzzkz or prescription medicines. ?Eat foods that are high in fiber, such as beans, whole grains, and fresh fruits and vegetables. ?Limit foods that are high in fat and processed sugars, such as fried or sweet foods. General instructions Take ryvu-vvv-sjpvxfg and prescription medicines only as told by [...] the muscles that help control urination. Take mdkv-duj-uloaota and prescription medicines only as told by your health care provider. Contact a health care provider if your symptoms do not improve or get worse. This information is not intended to replace advice given to you by your health care provider. Make sure you discuss any questions you have with your health care provider. Document Revised: 11/26/2020 Document Reviewed: 11/26/2020 [employer] Patient Education 2022 [employer]. 07/23/2023 10:36:54 BMI for Adults BMI for [...] numbers. This can be done either in [place]ic ([place].S[place] or metric measurements. Note that charts and online BMI calculators are available to help you find your BMI quickly and easily without having to do these calculations yourself. To calculate your BMI in [place]ic ([place] measurements: 1.Measure your weight in pounds [...] Centers for Disease Control and Prevention: www.cdc.gov [place] Heart [employer]: www.heart.org National Heart, Lung, and Blood [place]: www.nhlbi.nih.gov Summary Body mass index (BMI) is a number that is calculated from a person's weight and height. BMI may help estimate how much of a person's weight is composed of fat. BMI can help identify thosewho may be at higher risk for certain medical problems. BMI can be measured using Icelandic measurements or metric measurements. BMI charts are used to identify whether you are underweight, normal weight, overweight, or obese. This information is not intended to replace advice given to you by your health care provider. Make sure you discuss any questions you have with your health care provider. Document Revised: 01/14/2020 Document Reviewed: 11/21/2019 [employer] Patient Education 2022 [employer]. Follow Up Care 07/23/2023 09:05:39 With:Teofilo BRANDT, TREVOR Jimenez Address: [address] [place] [phone]- When: Unknown [facility] 02-13-2024 History of Present illness Narrative* Nakul Vaughan DO - 06/19/2023 8:10 AM EST Reason for Appointment: Patient ID: Racquel Yadav is a 27 y.o. female who presents for TELEHEALTH FOLLOW UP and Infertility Patient presents today via telephone call for a telehealth appointment. Patients Phone #: [phone] (mobile) Current Medications: has a current medication [...] of: Nakul Vaughan DO documented in this encounterSS[facility] [id number] Hospital Discharge instructions Patient Education 07/29/2021 17:20:52 LOT TECHNICIAN - Post D&C, Hysteroscopy, LEEP or [...] Up Care 07/12/2021 14:08:06 With:Mark Moffett Address: [address] [place], [place] [id number] [facility] (1) When:2 weeks Comments:Call [facility] any problems. [facility] No data available for this section [facility]* Diagnosis Female infertility Female infertility of unspecified origin [facility] Diagnosis Abdominal cramping affecting [facility]* Diagnosis First trimester state, incidental 12 weeks gestation of Vaginal discharge during , antepartum Encounter for screening for cervical length History of loop electrosurgical excision procedure (LEEP) of cervix affecting , antepartum [facility] Diagnosis Second trimester state, incidental Screening, , for anatomic survey Encounter for anatomic survey Nausea and vomiting in Unspecified vomiting of , unspecified as to episode of care documented in [facility]* Diagnosis Missed menses , unspecified gestational age Encounter for supervision of normal first in first trimester documented in [facility] encounter [facility]* Diagnosis 24 weeks gestation of Second trimester state, incidental Diabetes mellitus screening Screening for diabetes mellitus Screening, , for anatomic survey Encounter for anatomic survey [facility] No data available for this [facility] data available for this section [facility] Summary Purpose Family History No [...] section and content) DATE CREATED AUTHOR 10/31/2017 [facility] DATE CREATED AUTHOR AUTHOR'S ORGANIZ ATION 06/10/2020 [place] DATE CREATED AUTHOR AUTHOR'S ORGANIZ ATION 03/17/2024 [facility] DATE CREATED AUTHOR AUTHOR'S ORGANIZ ATION 03/20/2024 [facility] Reason for Visit (unrecogniz ed section and content) Reason Comments TELEHEALTH FOLLOW UP Infertility Reason Comments ER Follow-up Reason Comments Routine Visit Reason Comments Amenorrhea Patient Care team informatio n (unrecognized section and content) Personnel Name: Dave Red MD Address: Address: [address] [place] [address] Personnel Name: Dave Red MD Address: Address: [address] [place] [address] Personnel Name: Dave Red MD Address: Address: [address] [place] [address] Personnel Name: Dave Red MD Address: Address: [address] [place] [address] Personnel Name: Dave Red MD Address: Address: [address] [place] [address] Personnel Name: Dave Red MD Address: Address: [address] [place] [address] FOR RECORDS PERTAINING TO PATIENTS WHO ARE [...] BE BASED ON THE PRIMARY CLINICAL RECORDS. [facility]. provides no warranty or guarantee of the accuracy or completeness of information in this document.
[2024-05-31 12:18] LABS: Basophils Percent Auto 0.2 % (0.2-2.0); Eosinophils Absolute Auto 0.1 10^3/uL (0.0-0.7); Hematocrit 35.9 % (36.0-48.0); Hemoglobin 12.1 g/dL (12.0-16.0); Immature Granulocytes Abs Auto 0.24 10^3/uL (0.00-0.03); Immature Granulocytes Pct Auto 1.9 % (0.0-0.5); Lymphocytes Absolute Auto 2.1 10^3/uL (1.2-3.8); Mean Corpuscular HGB Conc 33.7 g/dL (29.9-35.2); Mean Corpuscular Hemoglobin 30.2 pg (26.7-34.0); Mean Corpuscular Volume 89.5 fL (81.0-99.0); Mean Platelet Volume 9.4 fL (9.5-13.5); Monocytes Absolute Auto 0.6 10^3/uL (0.3-0.8); Monocytes Percent Auto 4.5 % (1.7-12.0); Neutrophils Absolute Auto 9.5 10^3/uL (1.4-6.5); Neutrophils Percent Auto 75.4 % (43.0-75.0); Platelet Count 295 10^3/uL (150-450); Red Blood Count 4.01 10^6/uL (4.20-5.40); Red Cell Distribution Width 12.4 % (11.0-15.0); White Blood Count 12.5 10^3/uL (4.0-11.0)
[2024-05-31 12:29] LABS: Glucose 1 Hour 129 mg/dL (<130)
== END 2024-05-31 11:00 | disposition home or self-care (01) ==
LOC: LAB 10:59
PROVIDERS: Visit Provider Obstetrics & Gynecology
DX: Z13.1 Encounter for screening for diabetes mellitus (principal)
CPT/HCPCS: 36415; 82950; 85025

== ENCOUNTER 2024-06-30 10:38 | Outpatient (OUT) | payer OTHER, SELFPAY ==
--- NOTE | 2024-06-30 10:42 | US_ITS ---
The [address] [address] Patient Name: RACQUEL GRAHAM MRN: [id number] date: 1995 Sex: F Assigned Patient Location: [place] Current Patient Location: Accession/Order Number: [id number] Exam Date: 06/30/2024 13:38 Report Date: 06/30/2024 16:34 At the request of: RORO YU DO Procedure: US OB incomplete anatomy ULTRASOUND OB INCOMPLETE CLINICAL DATA: Follow-up incomplete anatomy survey (kidneys and umbilical cord) COMPARISON: 04/22/2024 There is a single live intrauterine gestation in vertex presentation. The amniotic fluid volume is subjectively normal. There is cardiac and somatic activity with heart rate of 145 bpm. Both kidneys are adequately visualized on today's exam and no hydronephrosis is noted. A three-vessel cord is also seen. US/US OB incomplete anatomy IMPRESSION: NO ABNORMALITIES INVOLVING SUBOPTIMALLY VISUALIZED ANATOMY ON THE COMPARISON EXAM (KIDNEYS AND UMBILICAL CORD). Impression dictated by: Pretty Peña M.D.06/30/2024 4:34 PM Dictation Location: [place] [address] Electronically authenticated by: [id number] Y Date: 06/30/2024 16:34
== END 2024-06-30 10:39 | disposition home or self-care (01) ==
LOC: US 10:38
PROVIDERS: Visit Provider Obstetrics & Gynecology
DX: Z36.2 Encounter for other antenatal screening follow-up (principal)
CPT/HCPCS: 76815

== ENCOUNTER 2024-08-13 21:13 | Outpatient (REF) | payer SELFPAY ==
--- OUTSIDE RECORDS SUMMARY | 2024-08-13 21:16 | XMS_ITS | CCD ---
Author Organization [facility] Care Team Providers Care Academic Interventionist Name Role Phone PHYSICIAN, DEFAULT Unavailable Unavailable [...] Medication Allergies] Propensity to adverse reactions (disorder) [facility] Repository Medications Current Medications Medication Drug [...] tablet (20 sources) Serotonin-3 Receptor Antagonist Start: 07-29-2024 take 1 tablet by mouth every eight hours as needed for nausea ondansetron ODT (Zofran-ODT) 4 MG disintegrating tablet Take 4 mg by mouth every 8 (eight) hours if needed for nausea 07/29/2024 Active Start: 06-10-2024 End: 07-10-2024 take 1 tablet by mouth every six hours for nausea ondansetron ODT (Zofran-ODT) 4 MG disintegrating tablet Indications: Nausea and vomiting, unspecified vomiting type Take 1 tablet (4 mg) by mouth every 6 (six) hours if needed for nausea or vomiting 30 tablet 2 06/10/2024 07/10/2024 Active Start: 04-14-2024 End: 05-21-2024 take 1 tablet [...] days 60 tablet 3 01/17/2024 02/01/2024 Active Completed/Discontinued Medications Medication Drug Class(es) Dates [...] meals. 30 tablet 12/20/2023 01/31/2024 Discontinued (Other) promethazine hydrochloride 12.5 mg oral tablet (20 sources) Phenothiazine Start: 02-12-2024 End: 08-13-2024 take 1 tablet by mouth every six [...] needed for nausea. 30 tablet 2 02/12/2024 08/13/2024 Discontinued terconazole 4 mg/ml vaginal cream (7 sources) [...] care or not applicable] 04-21-2024 Episodic Other complications of (2 sources) size does not accord with dates; Translations: [Uterine size-date discrepancy, unspecified trimester] 07-01-2024 Episodic Other connective tissue disease (1 source) [...] 07-23-2023 Chronic Other and delivery including normal (18 sources) First trimester ; Translations: [Encounter for [...] [24 weeks gestation of ] 05-20-2024 Episodic Residual codes; unclassified (2 sources) Gestation period, 28 weeks; Translations: [28 weeks gestation of ] 06-17-2024 Episodic Residual codes; unclassified (2 sources) Gestation period, 30 weeks; Translations: [30 weeks gestation of ] 07-01-2024 Episodic Residual codes; unclassified (2 sources) Gestation period, 32 weeks; Translations: [32 weeks gestation of ] 07-16-2024 Episodic Residual codes; unclassified (2 sources) Gestation period, 34 weeks; Translations: [34 weeks gestation of ] 07-30-2024 Episodic Residual codes; unclassified (2 sources) Gestation period, 36 weeks; Translations: [36 weeks gestation of ] 08-13-2024 Episodic Substance-related disorders (8 sources) Smoker 07-19-2021 Chronic Comment on above: Added secondary to d ocumentation in Social History. Unclassified (2 sources) Unknown / UNK(Unknown) Onset: 12-01-2016 Unclassified (20 sources) OB Reminders Onset: 03-03-2024 03-03-2024 Past [...] Range Facility Urinalysis macro (dipstick) panel (U)on 08-13-2024 Bilirubin, UA Negative Negative - 4(70) +++ mg/dL [facility] Blood, UA Negative Negative - 50 Moncho/mcL [facility] Clarity, UA Clear [facility] Color, UA Yellow [facility] Glucose, UA Positive Negative - 1999(110) ++++ mg/dL [facility] Comment on above: 1000 Interpretation and review of laboratory results Abnormal [facility] Ketones, UA Positive Negative - 160(16) ++++ mg/dL [facility] Comment on above: 15 Leukocytes, UA Negative Negative - 500+++ Bhavik/mcL [facility] Nitrite, UA Negative Negative - Positive [facility] pH, UA 5.5 5 - 9 [facility] Protein, UA Negative Negative - 1999(20) ++++ mg/dL [facility] Spec Grav, UA 1.025 1 - 1.03 [facility] Urobilinogen, UA 1.0 0.2 - 12 mg/dL [facility] Urinalysis macro (dipstick) panel (U)on 07-30-2024 Bilirubin, UA Negative Negative - 4(70) +++ mg/dL [facility] Blood, UA Negative Negative - 50 Moncho/mcL [facility] Clarity, UA Clear [facility] Color, UA Light Yellow [facility] Glucose, UA Positive Negative - 1999(110) ++++ mg/dL [facility] Comment on above: 250mg/dL Interpretation and review of laboratory results Abnormal [facility] Ketones, UA Negative Negative - 160(16) ++++ mg/dL [facility] Leukocytes, UA Negative Negative - 500+++ Bhavik/mcL [facility] Nitrite, UA Negative Negative - Positive [facility] pH, UA 5.5 5 - 9 [facility] Protein, UA Negative Negative - 1999(20) ++++ mg/dL [facility] Spec Grav, UA 1.025 1 - 1.03 [facility] Urobilinogen, UA 0.2 0.2 - 12 mg/dL [facility] Urinalysis macro (dipstick) panel (U)on 07-16-2024 Bilirubin, UA Negative Negative - 4(70) +++ mg/dL [facility] Blood, UA Negative Negative - 50 Moncho/mcL [facility] Clarity, UA Clear [facility] Color, UA Yellow [facility] Glucose, UA Positive Negative - 1999(110) ++++ mg/dL [facility] Comment on above: 500 mg Interpretation and review of laboratory results Abnormal [facility] Ketones, UA Positive Negative - 160(16) ++++ mg/dL [facility] Comment on above: trace Leukocytes, UA Negative Negative - 500+++ Bhavik/mcL [facility] Nitrite, UA Negative Negative - Positive [facility] pH, UA 5.5 5 - 9 [facility] Protein, UA Negative Negative - 2000(20) ++++ mg/dL [facility] Spec Grav, UA 1.03 1 - 1.03 [facility] Urobilinogen, UA 0.2 0.2 - 12 mg/dL [facility] Urinalysis macro (dipstick) panel (U)on 07-01-2024 Bilirubin, UA Negative Negative - 4(70) +++ mg/dL [facility] Blood, UA Negative Negative - 50 Moncho/mcL [facility] Clarity, UA Clear [facility] Color, UA Yellow [facility] Glucose, UA Negative Negative - 1999(110) ++++ mg/dL [facility] Interpretation and review of laboratory results Abnormal [facility] Ketones, UA Negative Negative - 160(16) ++++ mg/dL [facility] Leukocytes, UA Negative Negative - 500+++ Bhavik/mcL [facility] Nitrite, UA Negative Negative - Positive [facility] pH, UA 7.5 5 - 9 [facility] Protein, UA Trace Negative - 1999(20) ++++ mg/dL [facility] Spec Grav, UA 1.02 1 - 1.03 [facility] Urobilinogen, UA 1.0 0.2 - 12 mg/dL [facility] US OB INCOMPLETE ANATOMYon 0 06-30-2024 [place] [address] Ultrasound Report Signed Patient: RACQUEL YADAV MR#: [id number] : 1995 Acct:[id number] Age/Sex: 28 / F ADM Date: 06/30/24 Loc: US Attending Dr: Roro Vaughan D.O. Ordering Physician: Roro Vaughan D.O. Date of Service: 06/30/24 Procedure(s): US OB incomplete anatomy Accession Number(s): [id number] cc: Roro Vaughan D.O.; Physician,Non-Staff M.DJonathan The [address] [address] Patient Name: RACQUEL YADAV MRN: [facility]:[id number] date: 1995 Sex: F Assigned Patient Location: US Current Patient Location: US Accession/Order Number: [id number] Exam Date: 06/30/2024 13:38 Report Date: 06/30/2024 16:34 At the request of: RORO VAUGHAN DO Procedure: US OB incomplete anatomy ULTRASOUND OB INCOMPLETE CLINICAL DATA: Follow-up incomplete anatomy survey (kidneys and umbilical cord) COMPARISON: 04/22/2024 There is a single live intrauterine gestation in vertex presentation. The amniotic fluid volume is subjectively normal. There is cardiac and somatic activity with heart rate of 145 bpm. Both kidneys are adequately visualized on today's exam and no hydronephrosis is noted. A three-vessel cord is also seen. US/US OB incomplete anatomy IMPRESSION: NO ABNORMALITIES INVOLVING SUBOPTIMALLY VISUALIZED ANATOMY ON THE COMPARISON EXAM (KIDNEYS AND UMBILICAL CORD). Impression dictated by: Pretty Peña M.D.06/30/2024 4:34 PM Dictation Location: [place] [address] Electronically authenticated by: [id number] Date: 06/30/2024 16:34 Dictated By: Pretty Peña M.D. Signed By: 06/30/24 1636 DD/ 1634 TD/TT: Quality Assurance Practice Manager: [facility] Radiology, Radiologist, MD - 06/30/2024 [place] [address] Ultrasound Report Signed Patient: RACQUEL YADAV MR#: [id number] : 1995 Acct:[id number] Age/Sex: 28 / F ADM Date: 06/30/24 Loc: US Attending Dr: Roro Vaughan D.O. Ordering Physician: Roro Vaughan D.O. Date of Service: 06/30/24 Procedure(s): US OB incomplete anatomy Accession Number(s): [id number] cc: Roro Vaughan D.O.; Physician,Non-Staff [facility] [address] [address] Patient Name: RACQUEL YADAV MRN: [facility]:[id number] date: 1995 Sex: F Assigned Patient Location: US Current Patient Location: US Accession/Order Number: [id number] Exam Date: 06/30/2024 13:38 Report Date: 06/30/2024 16:34 At the request of: RORO VAUGHAN DO Procedure: US OB incomplete anatomy ULTRASOUND OB INCOMPLETE CLINICAL DATA: Follow-up incomplete anatomy survey (kidneys and umbilical cord) COMPARISON: 04/22/2024 There is a single live intrauterine gestation in vertex presentation. The amniotic fluid volume is subjectively normal. There is cardiac and somatic activity with heart rate of 145 bpm. Both kidneys are adequately visualized on today's exam and no hydronephrosis is noted. A three-vessel cord is also seen. US/US OB incomplete anatomy IMPRESSION: NO ABNORMALITIES INVOLVING SUBOPTIMALLY VISUALIZED ANATOMY ON THE COMPARISON EXAM (KIDNEYS AND UMBILICAL CORD). Impression dictated by: Pretty Peña M.D.06/30/2024 4:34 PM Dictation Location: [place] [address] Electronically authenticated by: [id number] Y Date: 06/30/2024 16:34 Dictated By: Pretty Peña M.D. Signed By: 06/30/24 1636 DD/ 1634 TD/TT: Quality Assurance Practice Manager: [facility] Radiology Study observation (narrative) [facility] US OB INCOMPLETE ANATOMYOrde red By: Radiologist Radiology on 06-30-2024 [facility] Work Phone: Urinalysis macro (dipstick) panel (U)on 06-17-2024 Bilirubin, UA Negative Negative - 4(70) +++ mg/dL [facility] Blood, UA Negative Negative - 50 Moncho/mcL [facility] Clarity, UA Clear [facility] Color, UA Yellow [facility] Glucose, UA Positive Negative - 2000(110) ++++ mg/dL [facility] Comment on above: 100 mg Interpretation and review of laboratory results Abnormal [facility] Ketones, UA Negative Negative - 160(16) ++++ mg/dL [facility] Leukocytes, UA Negative Negative - 500+++ Bhavik/mcL [facility] Nitrite, UA Negative Negative - Positive [facility] pH, UA 6 5 - 9 [facility] Protein, UA Negative Negative - 1999(20) ++++ mg/dL [facility] Spec Grav, UA 1.015 1 - 1.03 [facility] Urobilinogen, UA 0.2 0.2 - 12 mg/dL [facility] ALL CBC WITH AUTO DIFFon BASOPHILS ABSOLUTE AUTO 0 [facility] Basophils/100 WBC (Bld) 0.2 % 0.2 - 2.0 % [facility] Eosinophils/100 WBC (Bld) 1 % 0.9 - 7.0 % [facility] Erythrocyte distribution width (RBC) [Ratio] 12.4 % 11.0 - 15.0 % [facility] Hematocrit (Bld) [Volume fraction] 35.9 % Low 36.0 - 48.0 % [facility] Hemoglobin (Bld) [Mass/Vol] 12.1 g/dL 12.0 - 16.0 g/dL [facility] IMMATURE GRANULOCYTES ABS AUTO 0.24 High [facility] Immature granulocytes/100 WBC (Bld) 1.9 % High 0.0 - 0.5 % [facility] Interpretation and review of laboratory results Abnormal [facility] LYMPHOCYTES ABSOLUTE AUTO 2.1 [facility] Lymphocytes/100 WBC (Bld) 17 % Low 20.5 - 60.0 % [facility] MCH (RBC) [Entitic mass] 30.2 pg 26.7 - 34.0 pg [facility] MCHC (RBC) [Mass/Vol] 33.7 g/dL 29.9 - 35.2 g/dL [facility] MCV (RBC) [Entitic vol] 89.5 fL 81.0 - 99.0 fL [facility] MONOCYTES ABSOLUTE AUTO 0.6 [facility] Monocytes/100 WBC (Bld) 4.5 % 1.7 - 12.0 % [facility] NEUTROPHILS ABSOLUTE AUTO 9.5 High [facility] Neutrophils/100 WBC (Bld) 75.4 % High 43.0 - 75.0 % [facility] Platelet mean volume (Bld) [Entitic vol] 9.4 fL Low 9.5 - 13.5 fL [facility] TBH EO # 0.1 [facility] PLT 295 [facility] RBC 4.01 Low [facility] WBC 12.5 High [facility] GLUCOSE 1 HOURon 05-31-2024 Glucose [Mass/Vol] 129 mg/dL NINF - 13 0 mg/dL [facility] Urinalysis macro (dipstick) panel (U)on 05-20-2024 Bilirubin, UA Negative Negative - 4(70) +++ mg/dL [facility] Blood, UA Negative Negative - 50 Moncho/mcL [facility] Healthcare Clarity, UA Clear [facility] Color, UA Yellow [facility] Glucose, UA Negative Negative - 1999(110) ++++ mg/dL [facility] Interpretation and review of laboratory results Normal [facility] Ketones, UA Negative Negative - 160(16) ++++ mg/dL [facility] Leukocytes, UA Negative Negative - 500+++ Bhavik/mcL [facility] Nitrite, UA Negative Negative - Positive [facility] pH, UA 7 5 - 9 [facility] Protein, UA Negative Negative - 1999(20) ++++ mg/dL [facility] Spec Grav, UA 1.02 1 - 1.03 [facility] Urobilinogen, UA 0.2 0.2 - 12 mg/dL [facility] Urinalysis macro (dipstick) panel (U)on 04-21-2024 Bilirubin, UA Negative Negative - 4(70) +++ mg/dL [facility] Blood, UA Negative Negative - 50 Moncho/mcL [facility] Clarity, UA Clear [facility] Color, UA Yellow [facility] Glucose, UA Negative Negative - 1999(110) ++++ mg/dL [facility] Interpretation and review of laboratory results Abnormal [facility] Ketones, UA Negative Negative - 160(16) ++++ mg/dL [facility] Leukocytes, UA Negative Negative - 500+++ Bhavik/mcL [facility] Nitrite, UA Negative Negative - Positive [facility] pH, UA 7 5 - 9 [facility] Protein, UA Trace Negative - 1999(20) ++++ mg/dL [facility] Spec Grav, UA 1.02 1 - 1.03 [facility] Urobilinogen, UA 0.2 0.2 - 12 mg/dL [facility] BhCG Quanton 03-15-2024 [place] [address] m[IU]/mL High 1-3 F [facility] Comment on above: Result Comment: 'F N ON < 1 - 3' ' 0.2 - 1 WEEK = 5 TO 50' ' 1 - 2 WEEKS = 50 - 500' ' 2 - 3 WEEKS = 100 - 5000' ' 3 - 4 WEEKS = 500 - 18527' ' 4 - 5 WEEKS = 1000 - 20937' ' 5 - 6 WEEKS = 05032 - 101966' ' 6 - 8 WEEKS = 27937 - 231452' ' 8 - 12 WEEKS = 44544 - 804215' Performed By: #### 2 [id number] #### [facility] [address] [place] [address] CHEMISTRYOrdered By: SYSTEM SYSTEM on 03-15-2024 [place] [address] m[IU]/mL High 1 - 3 mIU/mL [facility] Comment on above: Result Comment: 'F N ON < 1 - 3' ' 0.2 - 1 WEEK = 5 TO 50' ' 1 - 2 WEEKS = 50 - 500' ' 2 - 3 WEEKS = 100 - 5000' ' 3 - 4 WEEKS = 500 - 43775' ' 4 - 5 WEEKS = 1000 - 42631' ' 5 - 6 WEEKS = 33457 - 832321' ' 6 - 8 WEEKS = 26835 - 517831' ' 8 - 12 WEEKS = 07022 - 085588' ED Clinical Summaryon 2023 ED Clinical Summary ED Clinical Summary [address] [address] ED Clinical Summary Person Information Name: RACQUEL YADAV [facility] Age: 28 Years : 1995 Sex: Female Language: Tunisian PCP: Dave Red MD Marital Status: Phone: [...] 03/15/2024 08:09:45 03/15/2024 08:09:45 03/15/2024 08:09:45 ADDRESS: [address] [place] [id number] PHYS DOC NOTES: Addendum by Augie Boyd DO on March 15, 2024 08:03:55 EST MEDICAL INFORMATION: Prescriptions Given: Medications to Continue with No Changes Other Medications letrozole (letrozole 2.5 mg Tab) medroxyPROGESTERone (medroxyPROGESTERone 10 mg Tab) PATIENT EDUCATION INFORMATION: Instructions: Follow up: With: Address: When: Roro VAUGHAN [facility], [address] [place] [address] Business (1) In 3 days 03/18/2024 With: Address: When: Dave Red [address] [place] [address] [employer] (1) In 3 days DIAGNOSIS: Threatened ; Vaginal bleeding in Normal [facility] ED Note-Physicianon 03-15-20 ED Note-Physician ED Note-Physician [...] and Complexity of Problems Differential Diagnosis: [] [facility] Data External documents reviewed: [] My EKG [...] 09/20/2018 Employment/School Employed, Work/School description: Works at [employer]. Previous employment/school: Student. Activity level: Occasional physical [...] of lifetime (more content not included)... Normal [facility] Comment on above: Result Comment: Elec [...] and Complexity of Problems Differential Diagnosis: [] [facility] Data External documents reviewed: [] My EKG [...] 09/20/2018 Employment/School Employed, Work/School description: Works at [employer]. Previous employment/school: Student. Activity level: Occasional physical [...] of lifetime (more content not included)... Normal [facility] Comment on above: Result Comment: Elec tronically Signed By: Poncho Sanchez DO\.br\Date and Time Signed: 03/15/24 06:45 EST ED Patient Education Noteon 03-15-2024 ED Patient Education Note ED Patient Education Note Normal [facility] ED Patient Summaryon 024 ED Patient Summary ED Patient Summary [place] [id number] Patient Discharge Instructions Person Information Name: RACQUEL YADAV Age: 28 Years Arrival Date: 03/15/2024 03:59:56 Discharge Diagnosis: Threatened ; Vaginal bleeding in Primary Care Physician: Dave Red MD Provider Information Primary Provider: Poncho Sanchez DO Advanced Store Coordinator:None The exam and treatment you received in the Emergency Department were for an urgent problem and are not intended as complete care. It is important that you follow up with a doctor, nurse practitioner, or physician???s acute care nursing assistant for ongoing care. If your symptoms become worse or you do not improve as expected and you are unable to reach your usual health care provider, you should return to the Emergency Department. We are available 24 hours a day. GLADYSRACQUEL Louie has been given the following list of patient education materials, prescriptions and follow-up instructions: Follow-up Instructions: With: Address: When: Roro VAUGHAN [facility], [address] [place] [address] , [place] [address] Business (1) In 3 days 03/18/2024 With: Address: When: Dave Red [address] [place] [id number] Business (1) In 3 days In the event that this physician does not participate in your insurance network, please consult with your insurance company to find a nearby participating provider. Patient Education Materials: A MESSAGE TO ALL PATIENTS REGARDING OPIOIDS PRESCRIPTION OPIOIDS: WHAT YOU NEED TO KNOW Prescription opioids can be used to help relieve vxezchpx-yf-scjiay pain and are often prescribed following a [...] about t (more content not included)... Normal [facility] Extra Blueon 03-15-2024 Tube Collected Plasma Yes Invalid Interpretation Code [facility] Comment on above: Performed By: #### [id number] #### [facility] [address] [place] [address] Extra Scot 03-15-2024 WB Tube Collected Yes Invalid Interpretation Code [facility] Comment on above: Performed By: #### 1 [id number] #### [facility] [address] [place] [id number] No Panel InformationOrdered By: Stephanie Acevedo on 03-15-2024 WP No Trichomonas vaginalis present No clue cells present No yeast seen [facility] UA with Cult Rflxon 03-15-20 24 Bilirubin Ql (U) Negative Normal Negative [facility] Comment on above: Performed By: #### 4 [id number] #### [facility] [address] [place] [address] Clarity (U) Clear Normal Clear [facility] Comment on above: Performed By: #### 4 [id number] #### [facility] [address] [place] [address] Color (U) Light-Yellow Normal Yellow [facility] Comment on above: Result Comment: Micr oscopic readings are only performed on those samples that meet specific criteria set forth by [facility]. Performed By: #### 4 [id number] #### [facility] [address] [place] [address] Glucose Ql (U) Negative Normal Negative [facility] Comment on above: Performed By: #### 4 [id number] #### [facility] [address] [place] [address] Hemoglobin Auto test strip (U) [Mass/Vol] Trace Abnormal Negative [facility] Comment on above: Performed By: #### 4 [id number] #### [facility] [address] [place] [address] Ketones Auto test strip Ql (U) 1+ mg/dL Abnormal Negative [facility] Comment on above: Performed By: #### 4 [id number] #### [facility] [address] [place] [address] Leukocyte esterase Auto test strip Ql (U) Negative Normal Negative [facility] Comment on above: Performed By: #### 4 [id number] #### [facility] [address] [place] [address] Nitrite Auto test strip Ql (U) Negative Normal Negative [facility] Comment on above: Performed By: #### 4 [id number] #### [facility] [address] [place] [address] pH (U) 5.5 [pH] Invalid Interpretation Code 5.0-9.0 [facility] Comment on above: Performed By: #### 4 [id number] #### [facility] [address] [place] [address] Protein Ql (U) Negative Normal Negative [facility] Comment on above: Performed By: #### [id number] #### [facility] [address] [place] [address] Specific gravity (U) [Rel density] 1.015 Invalid Interpretation Code 1.005-1.030 [facility] Comment on above: Performed By: #### [id number] #### [facility] [address] [place] [address] Urobilinogen (U) [Mass/Vol] Negative Normal Negative [facility] Comment on above: Performed By: #### [id number] #### [facility] [address] [place] [address] Type of Urine collection method Clean Catch Normal [facility] Comment on above: Performed By: #### [id number] #### [facility] [address] [place] [address] URINALYSISOrdered By: SYSTEM SYSTEM on 03-15-2024 Bilirubin Ql (U) Negative Normal Negativemg/ d L FT UA Auto SS Clarity (U) Clear (03/15/24 4:39 AM) Normal Clear [facility] UA Auto SS Color (U) Light-Yellow 1 (03/15/24 4:39 AM) Normal Yellow [facility] UA Auto SS Comment on above: Interpretive Data: M icroscopic readings are only performed on those samples that meet specific criteria set forth by [facility]. Glucose Ql (U) Negative Normal [...] Urobilinogen (U) [Mass/Vol] Negative Normal Negativemg/d L [facility] UA Auto SS URINALYSISOrdered By: Kristan Sanchez on 03-15-2024 UA Spec Desc Clean Catch (03/15/24 4:39 AM) Normal [facility] UA Auto SS US Limitedon 03-15 US [...] (bpm) 135 Cervical Length (cm) 3.5 Normal [facility] URETHRITIS/DISCHARGE PLUS VA GINITIS (HTRX)on 03-05-2024 ATOPOBIUM VAGINAE 0 [facility] ATOPOBIUM VAGINAE Not detected [facility] BVAB 2,3 (BACTERIAL VAGINOSIS ASSOCIATED BACTERIA 2, 3); MOBILUNCUS SPP 0 [facility] BVAB 2,3 (BACTERIAL VAGINOSIS ASSOCIATED BACTERIA 2, 3); MOBILUNCUS SPP Not detected [facility] MINERVA ALBICANS, PARAPSILOSIS, TROPICALIS 0 [facility] MINERVA ALBICANS, PARAPSILOSIS, TROPICALIS Not detected [facility] MINERVA GLABRATA 0 [facility] MINERVA GLABRATA Not detected [facility] MINERVA KRUSEI 0 [facility] MINERVA KRUSEI Not detected [facility] CHLAMYDIA TRACHOMATIS 0 [facility] CHLAMYDIA TRACHOMATIS Not detected N [facility] GARDNERELLA VAGINALIS 0 [facility] GARDNERELLA VAGINALIS Not detected N [facility] MEGASPHAERA (TYPES 1, 2) 0 [facility] MEGASPHAERA (TYPES 1, 2) Not detected [facility] MYCOPLASMA GENITALIUM 0 [facility] MYCOPLASMA GENITALIUM Not detected N [facility] NEISSERIA GONORRHOEAE 0 [facility] NEISSERIA GONORRHOEAE Not detected N [facility] TRICHOMONAS VAGINALIS 0 [facility] TRICHOMONAS VAGINALIS Not detected N [facility] Urinalysis macro (dipstick) panel (U)on 03-03-2024 Bilirubin, UA Negative Negative - 4(70) +++ mg/dL [facility] Blood, UA Positive Negative - 50 Moncho/mcL [facility] Comment on above: trace Clarity, UA Clear [facility] Color, UA Yellow [facility] Glucose, UA Positive Negative - 1999(110) ++++ mg/dL [facility] Comment on above: 250 mg Interpretation and review of laboratory results Abnormal [facility] Ketones, UA Negative Negative - 160(16) ++++ mg/dL [facility] Leukocytes, UA Negative Negative - 500+++ Bhavik/mcL [facility] Nitrite, UA Negative Negative - Positive [facility] pH, UA 5.5 5 - 9 [facility] Protein, UA Negative Negative - 2000(20) ++++ mg/dL [facility] Spec Grav, UA 1.015 1 - 1.03 [facility] Urobilinogen, UA 0.2 0.2 - 12 mg/dL [facility] ALL CBC WITH AUTO DIFFon BASOPHILS ABSOLUTE AUTO 0.1 [facility] Basophils/100 WBC (Bld) 0.4 % 0.2 - 2.0 % [facility] Eosinophils/100 WBC (Bld) 1.5 % 0.9 - 7.0 % [facility] Erythrocyte distribution width (RBC) [Ratio] 12.4 % 11.0 - 15.0 % [facility] Hematocrit (Bld) [Volume fraction] 38.9 % 36.0 - 48.0 % [facility] Hemoglobin (Bld) [Mass/Vol] 13.2 g/dL 12.0 - 16.0 g/dL [facility] IMMATURE GRANULOCYTES ABS AUTO 0.05 High [facility] Immature granulocytes/100 WBC (Bld) 0.4 % 0.0 - 0.5 % [facility] Interpretation and review of laboratory results Abnormal [facility] LYMPHOCYTES ABSOLUTE AUTO 3.4 [facility] Lymphocytes/100 WBC (Bld) 23.8 % 20.5 - 60.0 % [facility] MCH (RBC) [Entitic mass] 29.9 pg 26.7 - 34.0 pg [facility] MCHC (RBC) [Mass/Vol] 33.9 g/dL 29.9 - 35.2 g/dL [facility] MCV (RBC) [Entitic vol] 88.2 fL 81.0 - 99.0 fL [facility] MONOCYTES ABSOLUTE AUTO 0.8 [facility] Monocytes/100 WBC (Bld) 5.7 % 1.7 - 12.0 % [facility] NEUTROPHILS ABSOLUTE AUTO 9.7 High [facility] Neutrophils/100 WBC (Bld) 68.2 % 43.0 - 75.0 % [facility] Platelet mean volume (Bld) [Entitic vol] 9.4 fL Low 9.5 - 13.5 fL [facility] TBH EO # 0.2 [facility] TBH PLT 326 [facility] RBC 4.41 [facility] WBC 14.1 High [facility] BOX TEST SENT OUT Y [facility] BOX1 [facility] BOX2 02/12/24 [facility] ( test) Ql (U)o n 01-31-2024 Interpretation and review of laboratory results Abnormal [facility] Preg Test, Ur Positive [facility] Urinalysis macro (dipstick) panel (U)on 01-31-2024 Bilirubin, UA Negative Negative - 4(70) +++ mg/dL [facility] Blood, UA Negative Negative - 50 Moncho/mcL [facility] Clarity, UA Clear [facility] Color, UA Yellow [facility] Glucose, UA Negative Negative - 2000(110) ++++ mg/dL [facility] Interpretation and review of laboratory results Normal [facility] Ketones, UA Negative Negative - 160(16) ++++ mg/dL [facility] Leukocytes, UA Negative Negative - 500+++ Bhavik/mcL [facility] Nitrite, UA Negative Negative - Positive [facility] pH, UA 6.0 5 - 9 [facility] Protein, UA Negative Negative - 2000(20) ++++ mg/dL [facility] Spec Grav, UA 1.020 1 - 1.03 [facility] Urobilinogen, UA 1.0 0.2 - 12 mg/dL [facility] TBH PREG QUANT HCGon 024 HCG QUANTITATIVE 250 mIU/mL [facility] Comment on above: 5-50 0.2-1 WEEK 50-500 1-2 WEEKS 100-5,000 2-3 WEEKS 500-10,000 3-4 WEEKS 1,000-50,000 4-5 WEEKS 10,000-100,000 5-6 WEEKS 15,000-200,000 6-8 WEEKS 10,000-100,000 2-3 MONTHS [facility] PREG QUANT HCGon 024 HCG QUANTITATIVE 120 mIU/mL [facility] Comment on above: 5-50 0.2-1 WEEK 50-500 1-2 WEEKS 100-5,000 2-3 WEEKS 500-10,000 3-4 WEEKS 1,000-50,000 4-5 WEEKS 10,000-100,000 5-6 WEEKS 15,000-200,000 6-8 WEEKS 10,000-100,000 2-3 MONTHS [facility] ALL PROGESTERONEon 4 PROGESTERONE 9.9 ng/mL . [facility] Comment on above: Follicular phase 0.1 - 0.9 Luteal phase 1.8 - 23.9 Ovulation phase 0.1 - 12.0 First trimester 11.0 - 44.3 Second trimester 25.4 - 83.3 Third trimester 58.7 - 214.0 Postmenopausal 0.0 - 0.1 Performed at: - Lab[address] [id number] Potato Inspector: Jun Mike PhD, Phone: [phone] [facility] Ambulatory Visit Summaryon 0 11-15-2023 Ambulatory Visit [...] Follow Up with Teofilo BRANDT, Dave Rosen, [facility] When: Where: [place] [address]- Medications What When Instructions Unchanged letrozole (letrozole [...] water. ? Keep raw meats separate from sicgt-ok-wxp foods, such as fruits and vegetables. ? manipulator operator, meat, poultry, and eggs to the (more content not included)... Normal [facility] Office/Clini c Noteon 11-15-2023 [...] with voice recognition software. Occasional wrong-word or ?lvmbv-b-nvso? substitutions may have occurred due to the [...] of the extremity. She may also use bvla-nvw-kiklqai analgesics such as ibuprofen or Tylenol per package instructions for comfort. Declines need for work note today. 1. Hand pain, right (M79.641: Pain in right hand) Hand x-ray was negative. Patient encouraged to use rest, ice, compression and elevation for symptom management. As above can use obib-oro-wszwwqa analgesics such as Tylenol or ibuprofen per [...] When Contact Information Teofilo BRANDT, Dave Rosen, [facility] [place] [address]- Additional Instructions: Patient Education Healthy Eating Exercising to Lose Weight BMI for Adults How to Use Cold Therapy, Zubc-pj-Pwzx Hand Pain Problem List/Past Medical History Ongoing [...] 09/20/2018 Employment/School Employed, Work/School description: Works at [employer]. Previous employment/school: Student. Activity level: Occasional physical work. Highest education level: Some college. Operates hazardous equipment: No., 09/20/2018 Exercise Exercise duration: 4. Exercise frequency: 5-6 times/week. Self assessment: Fair condition. Exercise type: Walking., (more content not included)... Normal [facility] Comment on above: Result Comment: Elec [...] JACQUES Technologist: PATY Technical Comments Radiation Dose: Kar in mGy = . DAP = . [facility] C Urineon 07-25-2023 Bacteria identified Cx [...] Locations R1: This test was performed at: [facility], [address] [place] [address], [id number] , , Normal [facility] Comment on above: Performed By: #### 2 [id number] #### [facility] [address] [place] [id number] Ambulatory Visit Summaryon 0 07-23-2023 Ambulatory Visit [...] Follow Up with Teofilo BRANDT, Dave Rosen, [facility] When: Where: [address] [place] [address]- Medications What When Instructions Unchanged letrozole (letrozole [...] keep your urine pale yellow. ? Take vkbt-ybl-misfpgz or prescription medicines. ? Eat foods that are high in fiber, such as beans, whole grains, and fresh fruits and vegetables. ? Limit foods that are high in fat and processed sugars, such as fried or sweet foods. General instructions ? Take xzjb-qum-apngsrn and prescription medicines only as told by [...] muscles that help control urination. ? Take qbkh-gge-gzpgbzn and prescripti (more content not included)... Normal [facility] Office/Clini c Noteon 07-23-2023 [...] with voice recognition software. Occasional wrong-word or ?kzcsc-a-njer? substitutions may have occurred due to the [...] with this as she should contact her MANAGER POLICY Dr. Vaughan for further evaluation in which [...] of Est. Patient Straight Fwd 10-19 Min 66074 2. BMI 32.0-32.9,adult (Z68.32: Body mass index [BMI] 32.0-32.9, adult) The standard range for ages 18 and older is >=18.5 and < 25 kg/m2. Your BMI today was above this range, this falls in the overweight to obese category and there are medical benefits to weight loss. We can offer counselling, referral, a (more content not included)... Normal [facility] Comment on above: Result Comment: Elec [...] numbers. This can be done either in [place]ian (U.S.) or metric measurements. Note that charts and online BMI calculators are available to help you find your BMI quickly and easily without having to do these calculations yourself. To calculate your BMI in [place]ian (U.S.) measurements: 1. Measure your weight in [...] for Disease Control and Prevention: www.cdc.gov ? [place] Heart Association: www.heart.org ? National Heart, Lung, and Blood [place]: www.nhlbi.nih.gov Summary ? Body mass index (BMI) is a number that is calculated from a person's weight and height. ? BMI may help estimate how much of a person's weight is composed of fat. BMI can help identify those who may be at higher risk for certain medical problems. ? BMI can be measured using Tunisian measurements or metric measurements. ? BMI charts are used to identify whether you are underweight, normal weight, overweight, or obese. This information is not intended to replace advice given to you by your health care provider. Make sure you discuss any questions you have with your health care provider. Document Revised: 01/14/2020 Document Reviewed: 11/21/2019 [employer] Patient Education ? 2022 [employer] [facility] Urinary Frequency, Adult Urinary frequency means [...] at home: (more content not included)... Normal [facility] Provider Letteron 07-23-2023 Provider Letter July 23, 2023 RACQUEL YADAV [address] [place] [address] : 1995 To Whom It May Concern, Please excuse above patient from work. Date of Illness: 07/23/2023 May Return to Work On:07/24/2023 Sincerely, [facility] [address] [place] [address], [place] [address] [facility] Cervical or vaginal smear or scraping studyon 04-24-2023 [facility] MANAGER POLICY - Office Visiton MANAGER POLICY - Office Visit Diagnoses/Problems Assessed History of PCOS (polycystic ovarian syndrome) (256.4) (E28.2) Fertility testing (V26.21) (Z31.41) Screening for STD (sexually transmitted disease) (V74.5) (Z11.3) PCOS (polycystic ovarian syndrome) (256.4) (E28.2) Oligomenorrhea (626.1) (N91.5) Orders Anti Mullerian Hormone; Status:Active; Requested for:22Nhs9560; 17-Hydroxyprogesterone , Serum; Status:Active; Requested for:22Wma9698; Antithyroid Perox. Ab; Status:Active; Requested for:59Xxq9278; Complete Blood Count; Status:Active; Requested for:89Fmt1082; DHEA Sulfate, Serum; Status:Active; Requested for:29Onf6232; GC + Chlamydia By Amplified Detection; Status:Active; Requested for:16Fqf4077; HCG, Beta Quantitative; Status:Active; Requested for:70Ugu0841; Hemoglobin A1C; Status:Active; Requested for:24Fsc5763; Hepatitis B Surface Antigen; Status:Active; Requested for:79Ype2465; Hepatitis C Antibody Test; Status:Active; Requested for:47Qlk1774; HIV 1/2 ANTIGEN/ANTIBODY SCREEN WITH REFLEX TO CONFIRMATION; Status:Active; Requested for:23Xmu4451; IO Ultrasound, pelvic complete; Status:Hold For - Scheduling; Requested for:09Jun2020; Radiologist to Determine Optimal Study : Y What are the patient's signs and symptoms? : fert test Lipid Panel; Status:Active; Requested for:60Ppb1881; Prolactin, Serum; Status:Active; Requested for:09Jun2020; Rubella IgG [...] Blood type [ ] Genetic Screen with Altimet - will consider [x ] Take vitamins, vitamin D [x ] Return to see me after workup complete to discuss management plan [x ] Education: New infertility packet to be mailed to patient [x ] Engaged modules Rayshawn Johnson MD [facility] [phone] [place] [phone] [place] Provider Impressions 24 year old with oligomenorrhea, [...] Blood type [ ] Genetic Screen with Altimet - will consider [x ] Take vitamins, vitamin D [x ] Return to see me after workup complete to discuss management plan [x ] Education: New infertility packet to be mailed to patient [x ] Engaged MD albin Johnson MD [facility] [phone] [place] [phone] [place] Appointment Duration:. 45 minutes; greater than half [...] trying for 4 years. History of Present Ossqnlu3906/09/2020 11:15AM RACQUEL VAZQUEZ , 24 year is contacted for an (audio-visual, or audio only) Telehealth visit. Today's visit was provided through telemedicine conferencing: Using [employer] platform. Consent: The concept of telemedicine? 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 Prior established pregnancies: No Toxic habits: Occasional [...] Recorded: 09Jun2020 11:02AM Height5 ft 5 in Mncljo785 lb BMI Rgrxfmbukk24.46 BSA Calculated1.82 Tobacco Useb) No Fall Screeninga) No falls within the last year [id number] Gravida0 Para0 Pain Scale0 Physical Exam This is a telehealth appointment Signatures Electronically signed by : Rayshawn Johnson MD; Jun 09 2020 11:52AM EST (Author) Normal [facility] HUMERUS LEFTon 12-01-2016 [facility] [place] [address] ========Patient Name: RACQUEL VAZQUEZ : 1995Sex: FAge: Race: WhiteMRN: [id number]. Location: Patient Status: Date: 12/01/2016 4:25:00 PMCompleted Date: 12/01/2016 04:28 PMRequesting Provider: CARI GOOD Attending Provider: Report Copy To: Signs & Symptoms: S42.352D Displ commnt fx shaft of humer, l arm, 7thD R82Navyxan: AthenaComments: , , Views (X-RAY, HUMERUS): AP, Lateral , Weight Bearing?: Y , With or Without Brace/Cast/Collar: Without , With Magnification Marker?: N , , , Ordering Provider - CARI GOOD MD , Rendering Provider - CARI GOOD MD , Exam: HUMERUS LEFTAccession #: [id number] HUMERUS LEFT 12/01/2016 4:28 PM EDT SIGNS [...] Electronically signed by:Subhash Campos M.D.. Transcribed by: [id number], User Resident: Electronically Signed by: SUBHASH CAMPOS @ 12/01/2016 04:35 PM Normal [facility] Comment on above: Order Comment: , , V iews (X-RAY, HUMERUS): AP, Lateral , Weight Bearing?: Y , With or Without Brace/Cast/Collar: Without , With Magnification Marker?: N , , , Ordering Provider - CARI GOOD MD , Rendering Provider - CARI GOOD MD , Vital Signs Date Time Vital Sign Value Performing Clinician Facility 08-13-2024 14:44-0400 Body mass index (BMI) [Ratio] 36.44 kg/m2 [employer] DO Work Phone: [facility] 08-13-2024 14:44-0400 Body weight 99.34 kg Roro Clement DO Work Phone: [facility] 08-13-2024 14:44-0400 Diastolic blood pressure 70 mm[Hg] Roro Clement DO Work Phone: [facility] 08-13-2024 14:44-0400 Systolic blood pressure 110 mm[Hg] Roro Clement DO Work Phone: [facility] 07-30-2024 13:39-0400 Body mass index (BMI) [Ratio] 35.58 kg/m2 Roro Clement DO Work Phone: [facility] 07-30-2024 13:39-0400 Body weight 96.98 kg Roro Clement DO Work Phone: [facility] 07-30-2024 13:39-0400 Diastolic blood pressure 70 mm[Hg] Roro Clement DO Work Phone: [facility] 07-30-2024 13:39-0400 Systolic blood pressure 102 mm[Hg] Roro Clement DO Work Phone: [facility] 07-16-2024 10:51-0400 Body mass index (BMI) [Ratio] 34.61 kg/m2 Tamara Luis Fernando PA Work Phone: [facility] 07-16-2024 10:51-0400 Body weight 94.35 kg Tamara Winona PA Work Phone: [facility] 07-16-2024 10:51-0400 Diastolic blood pressure 72 mm[Hg] Tamara Winona PA Work Phone: [facility] 07-16-2024 10:51-0400 Systolic blood pressure 112 mm[Hg] Tamara Winona PA Work Phone: [facility] 07-01-2024 10:18-0500 Body mass index (BMI) [Ratio] 34.28 kg/m2 Tamara Luis Fernando PA Work Phone: [facility] 07-01-2024 10:18-0500 Body weight 93.44 kg Tamara Winona PA Work Phone: [facility] 07-01-2024 10:18-0500 Diastolic blood pressure 60 mm[Hg] Tamara Luis Fernando PA Work Phone: [facility] 07-01-2024 10:18-0500 Systolic blood pressure 110 mm[Hg] Tamara URIOSTEGUI Work Phone: [facility] 06-17-2024 09:29-0500 Body mass index (BMI) [Ratio] 33.61 kg/m2 Roro Clement DO Work Phone: [facility] 06-17-2024 09:29-0500 Body weight 91.63 kg Roro Clement DO Work Phone: [facility] 06-17-2024 09:29-0500 Diastolic blood pressure 72 mm[Hg] Roro Clement DO Work Phone: [facility] 06-17-2024 09:29-0500 Systolic blood pressure 118 mm[Hg] Roro Clement DO Work Phone: [facility] 05-20-2024 09:21-0500 Body mass index (BMI) [Ratio] 32.95 kg/m2 Roro Clement DO Work Phone: [facility] 05-20-2024 09:21-0500 Body weight 89.81 kg Roro Clement DO Work Phone: [facility] 05-20-2024 09:21-0500 Diastolic blood pressure 70 mm[Hg] Roro Clement DO Work Phone: [facility] 05-20-2024 09:21-0500 Systolic blood pressure 120 mm[Hg] Roro Clement DO Work Phone: [facility] 04-21-2024 09:47-0500 Body mass index (BMI) [Ratio] 32.45 kg/m2 Tamara URIOSTEGUI Work Phone: [facility] 04-21-2024 09:47-0500 Body weight 88.45 kg Tamara URIOSTEGUI Work Phone: [facility] 04-21-2024 09:47-0500 Diastolic blood pressure 70 mm[Hg] Tamara URIOSTEGUI Work Phone: [facility] 04-21-2024 09:47-0500 Systolic blood pressure 120 mm[Hg] Tamara Luis Fernando MOODY Work Phone: [facility] 03-19-2024 13:34-0500 Body mass index (BMI) [Ratio] 31.18 kg/m2 Roro Clement DO Work Phone: [facility] 03-19-2024 13:34-0500 Body weight 85 kg Roro Clement DO Work Phone: [facility] 03-19-2024 13:34-0500 Diastolic blood pressure 70 mm[Hg] Roro Clement DO Work Phone: [facility] 03-19-2024 13:34-0500 Systolic blood pressure 114 mm[Hg] Roro Clement DO Work Phone: [facility] 03-15-2024 04:04-0500 Body temperature 98.42 [degF] Kaylinn Dokken [facility] 03-15-2024 04:04-0500 Diastolic blood pressure 95 mm[Hg] Kaylinn Dokken [facility] 03-15-2024 04:04-0500 Heart rate 94 /min Kaylinn Dokken [facility] 03-15-2024 04:04-0500 Respiratory rate 16 /min Kaylinn Dokken [facility] 03-15-2024 04:04-0500 SaO2% (BldA) [Mass fraction] 97 % Kaylinn Dokken [facility] 03-15-2024 04:04-0500 Systolic blood pressure 123 mm[Hg] Kaylinn Dokken [facility] 03-03-2024 15:08-0400 Body mass index (BMI) [Ratio] 31.78 kg/m2 Roro Clement DO Work Phone: [facility] 03-03-2024 15:08-0400 Body weight 86.64 kg Roro Clement DO Work Phone: [facility] 03-03-2024 15:08-0400 Diastolic blood pressure 72 mm[Hg] Roro Clement DO Work Phone: [facility] 03-03-2024 15:08-0400 Systolic blood pressure 118 mm[Hg] Roro Clement DO Work Phone: [facility] 01-31-2024 16:20-0400 Body mass index (BMI) [Ratio] 31.25 kg/m2 [facility] 01-31-2024 16:20-0400 Body weight 85.19 kg [facility] 11-15-2023 12:56-0400 Blood Pressure Location Barby Fabianer [facility] 11-15-2023 12:56-0400 Body temperature 98.06 [degF] Barby Fabianer [facility] 11-15-2023 12:56-0400 Diastolic blood pressure 82 mm[Hg] Barby Bordner [facility] 11-15-2023 12:56-0400 Heart rate 82 /min Barby Bordner [facility] 11-15-2023 12:56-0400 Respiratory rate 18 /min Barby Bordner [facility] 11-15-2023 12:56-0400 SaO2% (BldA) [Mass fraction] 99 % Barby Adriendner [facility] 11-15-2023 12:56-0400 Systolic blood pressure 120 mm[Hg] Barby Bordner [facility] 07-23-2023 10:31-0400 Blood Pressure Location Cristi Saldana [facility] 07-23-2023 10:31-0400 Body temperature 98.24 [degF] Cristi Saldana [facility] 07-23-2023 10:31-0400 Diastolic blood pressure 74 mm[Hg] Cristi Saldana [facility] 07-23-2023 10:31-0400 Heart rate 81 /min Cristi Saldana [facility] 07-23-2023 10:31-0400 SaO2% (BldA) [Mass fraction] 97 % Cristi Saldana [facility] 07-23-2023 10:31-0400 Systolic blood pressure 118 mm[Hg] Cristi Saldana [facility] 07-29-2021 18:50-0400 Body temperature 96.98 [degF] Mark Moffett [facility] 07-29-2021 18:50-0400 Diastolic blood pressure 58 mm[Hg] Mark Zuhair [facility] 07-29-2021 18:50-0400 Heart rate 70 /min Mark Moffett [facility] 07-29-2021 18:50-0400 Respiratory rate 12 /min Mark Zuhair [facility] 07-29-2021 18:50-0400 SaO2% (BldA) [Mass fraction] 99 % Mark Zuahir [facility] 07-29-2021 18:50-0400 Systolic blood pressure 100 mm[Hg] Mark Moffett [facility] 03-25-2022 17:50-0400 Body temperature 97.52 [degF] Mark Moffett [facility] 07-29-2021 17:50-0400 Diastolic blood pressure 60 mm[Hg] Mark Mofeftt [facility] 07-29-2021 17:50-0400 Heart rate 70 /min Mark Moffett [facility] 07-29-2021 17:50-0400 Respiratory rate 12 /min Mark Moffett [facility] 07-29-2021 17:50-0400 SaO2% (BldA) [Mass fraction] 99 % Mark Moffett [facility] 07-29-2021 17:50-0400 Systolic blood pressure 110 mm[Hg] Mark Moffett [facility] 07-29-2021 17:49-0400 Body temperature 97.52 [degF] Mark Moffett [facility] 07-29-2021 17:49-0400 Diastolic blood pressure 79 mm[Hg] Mark Moffett [facility] 07-29-2021 17:49-0400 Heart rate 69 /min Mark Moffett [facility] 07-29-2021 17:49-0400 Respiratory rate 12 /min Mark Moffett [facility] 07-29-2021 17:49-0400 SaO2% (BldA) [Mass fraction] 99 % Mark Moffett [facility] 07-29-2021 17:49-0400 Systolic blood pressure 113 mm[Hg] Mark Moffett [facility] 07-29-2021 17:10-0400 Respiratory rate 24 /min Mark Moffett [facility] 07-29-2021 17:05-0400 Respiratory rate 24 /min Mark Moffett [facility] 07-29-2021 17:00-0400 Respiratory rate 27 /min Mark Moffett [facility] 07-29-2021 14:40-0400 Heart rate 72 /min Mark Moffett [facility] 07-29-2021 14:37-0400 Blood Pressure Location Mark Moffett [facility] 07-29-2021 14:37-0400 Mean blood pressure 93 mm[Hg] Mark Moffett [facility] 07-29-2021 14:37-0400 Blood Pressure Location Mark Moffett [facility] 07-29-2021 14:37-0400 Body temperature 98.24 [degF] Mark Moffett [facility] 07-29-2021 14:37-0400 BP/Pulse Patient Position Mark Moffett [facility] 07-29-2021 14:37-0400 Mean blood pressure 91 mm[Hg] Mark Moffett [facility] Encounters Encounter Date Encounter Type Care Provider Facility Start: 08-13-2024 End: 08-13-2024 Office outpatient visit 15 minutes Roro Clement DO Work Phone: [facility] Comment on above: 36 weeks gestation o f ; Third trimester Start: 08-13-2024 End: 08-13-2024 Bamboo flowsheet Roro Clement DO Work Phone: [facility] Start: 08-13-2024 End: 08-13-2024 Bamboo flowsheet Roro Clement DO Work Phone: [facility] Start: 07-30-2024 End: 07-30-2024 Bamboo flowsheet Roro Celment DO Work Phone: [facility] Start: 07-30-2024 End: 07-30-2024 Bamboo flowsheet Roro Clement DO Work Phone: [facility] Start: 07-30-2024 End: 07-30-2024 Office outpatient visit 15 minutes Roro Clement DO Work Phone: [facility] Comment on above: Third trimester preg eric; 34 weeks gestation of Start: 07-16-2024 End: 07-16-2024 Office outpatient visit 15 minutes Tamara URIOSTEGUI Work Phone: [facility] Comment on above: Third trimester preg eric; 32 weeks gestation of Start: 07-01-2024 End: 07-01-2024 Bamboo flowsheet Tamara URIOSTEGUI Work Phone: [facility] Start: 07-01-2024 End: 07-01-2024 Bamboo flowsheet Tamara URIOSTEGUI Work Phone: [facility] Start: 07-01-2024 End: 07-01-2024 Office outpatient visit 15 minutes Tamara URIOSTEGUI Work Phone: [facility] Comment on above: size inconsist ent with dates (Primary Dx); 30 weeks gestation of ; Third trimester Start: 06-30-2024 End: 06-30-2024 Clinisync Result Encounter Roro Clement DO Work Phone: [facility] Unsolicited Start: 06-30-2024 End: 06-30-2024 Clinisync Result Encounter Roro Clement DO Work Phone: [facility] Start: 06-17-2024 End: 06-17-2024 Bamboo flowsheet Roro Clement DO Work Phone: [facility] Start: 06-17-2024 End: 06-17-2024 Bamboo flowsheet Roro Clement DO Work Phone: [facility] Start: 06-17-2024 End: 06-17-2024 Office outpatient visit 15 minutes Roro Clement DO Work Phone: [facility] Comment on above: Third trimester preg eric; 28 weeks gestation of Start: 05-31-2024 End: 06-02-2024 Clinisync Result Encounter Roro Clement DO Work Phone: [facility]solic[facility] Start: 05-31-2024 End: 06-02-2024 Clinisync Result Encounter Roro Clement DO Work Phone: [facility] Start: 05-20-2024 End: 05-20-2024 Bamboo flowsheet Roro Clement DO Work Phone: [facility] Start: 05-20-2024 End: 05-20-2024 Bamboo flowsheet Roro Clement DO Work Phone: [facility] Start: 05-20-2024 End: 05-20-2024 Office outpatient visit 15 minutes Roro Clement DO Work Phone: [facility] Comment on above: 24 weeks gestation o f ; Second trimester ; Diabetes mellitus screening; Screening, , for anatomic survey Start: 04-21-2024 End: 04-21-2024 Bamboo flowsheet Tamara URIOSTEGUI Work Phone: [facility] Start: 04-21-2024 End: 04-21-2024 Bamboo flowsheet Tamara URIOSTEGUI Work Phone: [facility] Start: 04-21-2024 End: 04-21-2024 Office outpatient visit 15 minutes Tamara URIOSTEGUI Work Phone: [facility] Comment on above: Second trimester pre gnancy; Screening, , for anatomic survey; Nausea and vomiting in Start: 03-19-2024 End: 03-19-2024 Office outpatient visit 15 minutes Roro Clement DO Work Phone: [facility] Comment on above: Abdominal cramping a ffecting Start: 03-15-2024 End: 03-15-2024 Emergency department patient visit Poncho Sanchez [facility] Start: 03-03-2024 End: 03-03-2024 flow sheet Roro Clement DO Work Phone: [facility] Comment on above: First trimester preg eric; 12 weeks gestation of ; Vaginal discharge during , antepartum; Encounter for screening for cervical length; History of loop electrosurgical excision procedure (LEEP) of cervix affecting , antepartum Start: 03-03-2024 End: 03-03-2024 Bamboo flowsheet Roro Clement DO Work Phone: [facility] Start: 03-03-2024 End: 03-05-2024 Bamboo flowsheet Roro Clement DO Work Phone: [facility] Start: 03-03-2024 End: 03-05-2024 External Result Encounter Roro Clement DO Work Phone: [facility]solic[facility] Start: 02-27-2024 End: 02-27-2024 ambulatory [facility] Facility:[facility] Start: 02-27-2024 End: 02-27-2024 Patient encounter procedure [facility] Start: 02-12-2024 End: 02-13-2024 Clinisync Result Encounter Roro Clement DO Work Phone: [facility]solic[facility] Start: 02-12-2024 End: 02-13-2024 Clinisync Result Encounter Roro Clement DO Work Phone: [facility] Unsolic[facility] Start: 01-31-2024 End: 01-31-2024 Office outpatient visit 5 minutes [facility] Nurse [facility] Comment on above: GA: 8w2d Start: 01-05-2024 End: 01-08-2024 Clinisync Result Encounter Roro Clement DO Work Phone: [facility]olic[facility] Start: 01-05-2024 End: 01-08-2024 Clinisync Result Encounter Roro Clement DO Work Phone: [facility] Start: 01-03-2024 End: 01-03-2024 Clinisync Result Encounter Roro Clement DO Work Phone: [facility] Start: 01-03-2024 End: 01-03-2024 Clinisync Result Encounter Roro Clement DO Work Phone: [facility] Start: 12-24-2023 End: 12-26-2023 Clinisync Result Encounter Roro Clement DO Work Phone: [facility] Start: 12-24-2023 End: 12-26-2023 Clinisync Result Encounter Roro Clement DO Work Phone: [facility] Start: 11-15-2023 End: 11-15-2023 ambulatory Barby Pastrana Facility:[facility] Start: 11-15-2023 End: 11-15-2023 Patient encounter procedure Barby Pastrana [facility] Start: 07-23-2023 End: 07-23-2023 Lab Drop off Cristi Saldana [facility] Start: 07-23-2023 End: 07-23-2023 ambulatory Cristi Saldana Facility:[facility] Start: 07-23-2023 End: 07-23-2023 Patient encounter procedure Cristi Saldana [facility] Start: 06-19-2023 End: 06-19-2023 Phys/qhp telephone evaluation 5-10 min Roro Clement DO Work Phone: [facility] Comment on above: Female infertility Start: 09-21-2021 End: 09-21-2021 Lab Drop off Steph Brady [facility] Start: 07-29-2021 End: 07-29-2021 Admission to same day surgery center Mark Moffett [facility] Start: 12-01-2016 End: 12-02-2016 Ambulatory VITBRUNA VALDOVINOSE Facility:[facility] Start: 11-01-2016 End: 11-02-2016 Ambulatory DEFAULT PHYSICIAN Facility:[facility] Procedures Date Procedure Procedure Detail Performing Clinician Start: 08-13-2024 Urnls dip stick/tabl et rgnt non-auto w/o micrscp Roro Clement DO Work Phone: Start: 07-30-2024 Urnls dip stick/tabl et rgnt non-auto w/o micrscp Tamara URIOSTEGUI Work Phone: Start: 07-16-2024 Urnls dip stick/tabl et rgnt non-auto w/o micrscp Tamara URIOSTEGUI Work Phone: Start: 07-01-2024 Urnls dip stick/tabl et rgnt non-auto w/o micrscp Tamara URIOSTEGUI Work Phone: Start: 06-30-2024 US OB INCOMPLETE ANATOMY Roro Clement DO Work Phone: Start: 06-17-2024 Urnls dip stick/tabl et rgnt non-auto w/o micrscp Roro Clement DO Work Phone: Start: 05-31-2024 ALL CBC WITH AUTO DIFF Roro Clement DO Work Phone: Start: 05-31-2024 GLUCOSE 1 HOUR Roro Fa zio DO Work Phone: Start: 05-20-2024 Urnls dip stick/tabl et rgnt non-auto w/o micrscp Roro Clement DO Work Phone: Start: 04-21-2024 Urnls dip stick/tabl et rgnt non-auto w/o micrscp Tamara URIOSTEGUI Work Phone: Start: 03-03-2024 Urnls dip stick/tabl et rgnt non-auto w/o micrscp Roro Clement DO Work Phone: Start: 03-03-2024 URETHRITIS/DISCHARGE PLUS VAGINITIS (HTRX) Roro Clement DO Work Phone: Start: 02-12-2024 ALL CBC WITH AUTO DIFF Roro Clement DO Work Phone: Start: 02-12-2024 BOX TEST Roro Fazi o DO Work Phone: Start: 01-31-2024 Urnls dip stick/tabl et rgnt non-auto w/o micrscp Roro Clement DO Work Phone: Start: 01-05-2024 [facility] PREG QUANT HCG Core y Clement DO Work Phone: Start: 01-03-2024 [facility] PREG QUANT HCG Core y Clement DO Work Phone: Start: 12-24-2023 ALL PROGESTERONE Roro Clement DO Work Phone: Start: 04-24-2023 Cytp cerv/vag auto t hin layer prep mnl screen Roro Clement DO Work Phone: Start: 09-15-2016 left humerus ORIF [facility] Mark Moffett Plan of Treatment Date Care Activity Detail Author Start: 08-20-2024 End: 08-20-2024 Patient encounter procedure 08/20/2024 10:50 AM EDT Routine [facility] [address] [place] [address] Tamara Gould PA [address] [place] [address] [facility] Start: 08-13-2024 End: 08-13-2024 Patient encounter procedure 08/13/2024 2:40 PM EDT Routine [facility] [address] [place] [id number] Roro Vaughan, [address] [place] [address] Arrived [facility] Comment on above: Arrived Start: 08-13-2024 End: 08-13-2025 CULTURE, GROUP B STREP WITH SUSCEPTIBLITY CULTURE, GROUP B STREP WITH SUSCEPTIBLITY Lab Routine Third trimester Expected: 08/13/2024, Expires: 08/13/2025 [facility] Work Phone: Comment on above: Expected: 08/13/2024 , Expires: 08/13/2025 Start: 07-30-2024 End: 07-30-2024 Patient encounter procedure [facility] Comment on above: Arrived Start: 07-16-2024 End: 07-16-2024 Patient encounter procedure 07/16/2024 10:50 AM EDT Routine [facility] [address] [place] [id number] Tamara Gould, PA [address] [place] [address] [facility] Start: 07-16-2024 End: 07-16-2024 Professional / ancillary services management 07/16/2024 10:30 AM EDT Ancillary Procedure [facility] [address] [place] [id number] [facility] Start: 07-01-2024 End: 07-01-2025 US for US OB follow up transabdominal approach Imaging Routine size inconsistent with dates Expected: 07/01/2024, Expires: 07/01/2025 [facility] Work Phone: Comment on above: Expected: 07/01/2024 , Expires: 07/01/2025 Start: 07-01-2024 End: 07-01-2024 Patient encounter procedure [facility] Comment on above: Arrived Start: 06-17-2024 End: 06-17-2024 Patient encounter procedure [facility] Comment on above: Arrived Start: 05-27-2024 End: 05-27-2024 Professional / ancillary services management 05/27/2024 2:30 PM EST Ancillary Procedure [facility] [address] [place] [address] [facility] Start: 05-20-2024 End: 05-20-2025 CBC panel - Blood by Automated count CBC Lab Routine Diabetes mellitus screening Expected: 05/20/2024 (Approximate), Expires: 05/20/2025 [facility] Work Phone: Comment on above: Expected: 05/20/2024 (Approximate), Expires: 05/20/2025 Start: 05-20-2024 End: 05-20-2025 Measurement of glucose 1 hour after glucose challenge for glucose tolerance test Glucose tolerance, 1 hour Lab Routine Diabetes mellitus screening Expected: 05/20/2024 (Approximate), Expires: 05/20/2025 [facility] [employer] Comment on above: Expected: 05/20/2024 (Approximate), Expires: 05/20/2025 Start: 05-20-2024 End: 05-20-2025 US for US OB 14+ weeks anatomy scan Imaging Routine Screening, , for anatomic survey Expected: 05/20/2024, Expires: 05/20/2025 [facility] Comment on above: Expected: 05/20/2024 , Expires: [...] PM EST Routine [facility] [address] [address] Tamara Gould PA [address] [place], [facility] Start: 03-26-2024 End: 03-26-2024 Professional / ancillary services management 03/26/2024 3:00 PM EST Ancillary Procedure [facility] [address] [place] [address] [facility] Start: 03-06-2024 End: 03-06-2024 Professional / ancillary services management 03/06/2024 12:30 PM EDT Ancillary Procedure [facility] [address] [place] [address] [facility] Start: 03-03-2024 End: [...] gestational age Expected: 01/31/2024 (Approximate), Expires: 01/30/2025 [facility] Comment on above: Expected: 01/31/2024 (Approximate), Expires: 01/30/2025 Start: 01-31-2024 End: 01-30-2025 Blood type and Indirect antibody screen panel - Blood Type and screen Lab Routine Missed menses , unspecified gestational age Expected: 01/31/2024 (Approximate), Expires: 01/30/2025 [facility] Work Phone: Comment on above: Expected: 01/31/2024 (Approximate), Expires: 01/30/2025 Start: 01-31-2024 End: 01-30-2025 Drugs of abuse panel - Urine by Screen method Rapid drug screen, urine Lab Routine , unspecified gestational age Encounter for supervision of normal first in first trimester Expected: 01/31/2024 (Approximate), Expires: 01/30/2025 [facility] Comment on above: Expected: 01/31/2024 (Approximate), Expires: 01/30/2025 Start: 01-31-2024 End: 01-30-2025 US Pelvis transvaginal US OB transvaginal Imaging Routine Missed menses Expected: 01/31/2024 (Approximate), Expires: 01/30/2025 [facility] Comment on above: Expected: 01/31/2024 (Approximate), Expires: 01/30/2025 Bacteria identified in Urine by Culture Urine culture Microbiology Routine Missed menses Ordered: 01/31/2024 [facility] Comment on above: Ordered: 01/31/2024 CBC W Auto Different ial panel - Blood CBC and differential Lab Routine Missed menses , unspecified gestational age Ordered: 01/31/2024 [facility] Comment on above: Ordered: 01/31/2024 CHLAMYDIA TRACHOMATI S (GENITO/STI) CHLAMYDIA TRACHOMATIS (GENITO/STI) Lab Routine Vaginal discharge during , antepartum Ordered: 03/03/2024 [facility] Comment on above: Ordered: 03/03/2024 Hemoglobin A1c/Hemoglobin.total in Blood Hemoglobin A1c Lab Routine Missed menses , unspecified gestational age Ordered: 01/31/2024 [facility] Comment on above: Ordered: 01/31/2024 Hepatitis B virus surface Ag [Presence] in Serum or Plasma by Immunoassay Hepatitis B surface antigen Lab Routine Missed menses , unspecified gestational age Ordered: 01/31/2024 [facility] Comment on above: Ordered: 01/31/2024 Hepatitis C virus Ab [Presence] in Serum or Plasma by Immunoassay Hepatitis C antibody Lab Routine Missed menses , unspecified gestational age Ordered: 01/31/2024 [facility] Comment on above: Ordered: 01/31/2024 HIV-1/HIV-2 antigen/antibody combination immunoassay HIV-1 and HIV-2 antibodies Lab Routine Missed menses , unspecified gestational age Ordered: 01/31/2024 [facility] Comment on above: Ordered: 01/31/2024 Neisseria gonorrhoea e DNA [Presence] in Unspecified specimen by AYE with probe detection Neisseria gonorrhea DNA probe, direct Lab Routine Vaginal discharge during , antepartum Ordered: 03/03/2024 [facility] Comment on above: Ordered: 03/03/2024 Reagin Ab [Presence] in Serum by RPR RPR Lab Routine Missed menses , unspecified gestational age Ordered: 01/31/2024 [facility] Comment on above: Ordered: 01/31/2024 Rubella antibody, IgG Rubella an tibody, IgG Lab Routine Missed menses , unspecified gestational age Ordered: 01/31/2024 [facility] Comment on above: Ordered: 01/31/2024 SURESWAB(R) ADVANCED VAGINITIS PLUS, TMA SURESWAB(R) ADVANCED VAGINITIS PLUS, TMA Pathology and Cytology Routine Vaginal discharge during , antepartum Ordered: 03/03/2024 [facility] Work Phone: Comment on above: Ordered: 03/03/2024 Payers Date Payer Category Payer Unknown [id number] 1995 Unknown [id number] [id number] [id number] 1994 Unknown [id number] 2.16.8 [id number] 1994 Unknown [id number] 2.16.8 [id number] 1994 Unknown [id number] 2.16.8 [id number] 1994 Unknown [id number] 2.16.8 [id number] 1994 Unknown [id number] 2.16.8 [id number] 1994 Unknown [id number] 2.16.8 [id number] Unknown [id number] Unknown Social History Date Type Detail Facility Start: 12-14-2020 End: 11-15-2023 Tobacco smoking status Never smoked tobacco (finding) [facility] Comment on above: patient denies Tobacco smoking status Never [facility] Comment on above: patient denies Sex Assigned At Female [facility] Tobacco smoking stat [facility] Tobacco smoking consumption unknown [facility] Start: 1995 Sex Assigned At Female [facility] Start: 01-09-2023 Gender identity Identifies as female gender (finding) [facility] Start: 01-09-2023 Sexual orientation Heterosexual (fin ding) [facility] Start: 12-18-2023 [facility] Goals Date Patient Goal Desired Activity /State Personal health goal Functional Status Date Assessment Result Facility 03-15-2024 Functional Status N/A [facility] 11-15-2023 Functional Status N/A [facility] 07-23-2023 Functional Status N/A [facility] Clinical Notes 07-29-2021 to 08-13-2024 Pretty Art LPN - 08/13/2024 2:40 PM MOODY Wells - 07/30/2024 1:40 PM Horacio Cardenas MA - 07/16/2024 10:50 AM MOODY Wells - 07/01/2024 10:30 AM MOODY Hines - 04/21/2024 8:30 AM EST Note Date & Type Note Facility 08-13-2024 History of Present illness Narrative Reason for Appointment: Patient ID: Racquel Yadav is a 28 y.o. female who presents for Routine Visit Patient presents today for Return OB appointment. MEDICATIONS Current Outpatient Medications Medication Instructions ondansetron ODT (ZOFRAN-ODT) 4 mg, Every 8 hours PRN ALLERGIES No Known Allergies PROBLEMS Active Ambulatory Problems Diagnosis Date Noted No Active Ambulatory Problems Resolved Ambulatory Problems Diagnosis Date Noted No Resolved Ambulatory Problems Past Medical History: Diagnosis Date Currently H/O LEEP 2021 History of loop electrosurgical excision procedure (LEEP) affecting care of mother, antepartum Irregular periods/menstrual cycles Pap smear for cervical cancer screening 2021 PCOS (polycystic ovarian syndrome) Swelling of lower extremity during , unspecified trimester HISTORY PAST MEDICAL HISTORY SOCIAL HISTORY Past Medical History: Diagnosis Date Currently H/O LEEP 2021 abnormal cells History of loop electrosurgical excision procedure (LEEP) affecting care of mother, antepartum Irregular periods/menstrual cycles Pap smear for cervical cancer screening 2021 Dr. Moran PCOS (polycystic ovarian syndrome) Swelling of lower extremity during , unspecified trimester Social History Tobacco Use Smoking status: Not [...] nursing note reviewed. Exam conducted with a applications programmer analyst present. Vitals: Estimated body mass index is 36.44 kg/m as calculated from the following: Height as of 24: 5' 5 . Weight as of this encounter: 219 lb. BP: 110/70 Patient's last menstrual period was 12/04/2023. ASSESSMENT & PLAN ICD-10-CM 1. 36 weeks gestation of Z3A.36 POCT urinalysis dipstick manually resulted 2. Third trimester Z34.93 POCT urinalysis dipstick manually resulted CULTURE, GROUP B STREP WITH SUSCEPTIBLITY CULTURE, GROUP B STREP WITH SUSCEPTIBLITY Patient is doing well but has complaints of being tired and having maternal discomfort due to . Patient verbalized frequent movement and was instructed to perform kick counts three times per day. labor precautions were given, LARC consent was signed/declined, and GBS was obtained. Cervical check was performed and patient is 0cm dilated. Orders Placed This Encounter Procedures CULTURE, GROUP B STREP WITH SUSCEPTIBLITY POCT urinalysis dipstick manually resulted Follow Up: Patient is to return to office in 1 week for routine OB appointment Documented by Pretty Art LPN on behalf of: Roro Vaughan DO documented in this encounter [facility] [facility] History of Present illness Narrative Reason for Appointment: Patient ID: Racquel Yadav is a 28 y.o. female who presents for Routine Visit Patient presents today for Return OB appointment. MEDICATIONS Current Outpatient Medications Medication Instructions promethazine (PHENERGAN) 12.5 mg, Oral, Every 6 hours PRN, Take 1 tablet by mouth every 6 hours as needed for nausea. ALLERGIES No Known Allergies PROBLEMS Active Ambulatory Problems Diagnosis Date Noted No Active Ambulatory Problems Resolved Ambulatory Problems Diagnosis Date Noted No Resolved Ambulatory Problems Past Medical History: Diagnosis Date Currently H/O LEEP 2021 History of loop electrosurgical excision procedure (LEEP) affecting care of mother, antepartum Irregular periods/menstrual cycles Pap smear for cervical cancer screening 2021 PCOS (polycystic ovarian syndrome) Swelling of lower extremity during , unspecified trimester HISTORY PAST MEDICAL HISTORY SOCIAL HISTORY Past Medical History: Diagnosis Date Currently H/O LEEP 2021 abnormal cells History of loop electrosurgical excision procedure (LEEP) affecting care of mother, antepartum Irregular periods/menstrual cycles Pap smear for cervical cancer screening 2021 Dr. Moran PCOS (polycystic ovarian syndrome) Swelling of lower extremity during , unspecified trimester Social History Tobacco Use Smoking status: Not [...] reviewed. Vitals: Estimated body mass index is 35.58 kg/m as calculated from the following: Height as of 12/20/23: 5' 5 . Weight as of this encounter: 213 lb 12.8 oz. BP: 102/70 Patient's last menstrual period was 12/04/2023. ASSESSMENT & PLAN ICD-10-CM 1. Third trimester Z34.93 POCT urinalysis dipstick manually resulted 2. 34 weeks gestation of Z3A.34 Return OB: Patient presents today for a routine obstetrics appointment. Patient is currently 34w1d . Patient states she is doing well but has complaints of being tired due to current . Patient has verbalizes frequent movement. labor precautions was discussed/given and patient was instructed to perform kick counts three times a day. Orders Placed This Encounter Procedures POCT urinalysis dipstick manually resulted Follow Up: Patient is to return to office in 2 week for routine OB appointment. Documented by MOODY Gilman on behalf of: Roro Vaughan DO documented in this encounter [facility] 07-16-2024 History of Present illness Narrative Reason for Appointment: Patient ID: Racquel Yadav is a 28 y.o. female who presents for Routine Visit Patient presents today for Return OB appointment. MEDICATIONS Current Outpatient Medications Medication Instructions promethazine (PHENERGAN) 12.5 mg, Oral, Every 6 hours PRN, Take 1 tablet by mouth every 6 hours as needed for nausea. ALLERGIES No Known Allergies PROBLEMS Active Ambulatory Problems Diagnosis Date Noted No Active Ambulatory Problems Resolved Ambulatory Problems Diagnosis Date Noted No Resolved Ambulatory Problems Past Medical History: Diagnosis Date Currently H/O LEEP 2021 History of loop electrosurgical excision procedure (LEEP) affecting care of mother, antepartum Irregular periods/menstrual cycles Pap smear for cervical cancer screening 2021 PCOS (polycystic ovarian syndrome) Swelling of lower extremity during , unspecified trimester HISTORY PAST MEDICAL HISTORY SOCIAL HISTORY Past Medical History: Diagnosis Date Currently H/O LEEP 2021 abnormal cells History of loop electrosurgical excision procedure (LEEP) affecting care of mother, antepartum Irregular periods/menstrual cycles Pap smear for cervical cancer screening 2021 Dr. Moran PCOS (polycystic ovarian syndrome) Swelling of lower extremity during , unspecified trimester Social History Tobacco Use Smoking status: Not on file Smokeless tobacco: Not on file Substance Use Topics Alcohol use: Not on file Drug use: Not on file FAMILY HISTORY No family history on file. SURGICAL HISTORY Past Surgical History: Procedure Laterality Date CERVICAL BIOPSY W/ LOOP ELECTRODE EXCISION 07/2021 abnormal cells from pap REVIEW OF SYSTEMS Review of Systems: Review of Systems OBJECTIVE Objective: OBGyn Exam Vitals: Estimated body mass index is 34.61 kg/m as calculated from the following: Height as of 12/20/23: 5' 5 . Weight as of this encounter: 208 lb. BP: 112/72 Patient's last menstrual period was 12/04/2023. ASSESSMENT & PLAN ICD-10-CM 1. Third trimester Z34.93 POCT urinalysis dipstick manually resulted 2. 32 weeks gestation of Z3A.32 Return OB: Patient presents today for a routine obstetrics appointment. Patient is currently 32w1d . Patient states she is doing well but has complaints of being tired due to current . Patient has verbalizes frequent movement. labor precautions was discussed/given and patient was instructed to perform kick counts three times a day. Orders Placed This Encounter Procedures POCT urinalysis dipstick manually resulted Follow Up: Patient is to return to office in 2 week for routine OB appointment. Documented by Brie Cardenas MA on behalf of: MOODY Gilman documented in this encounter [facility] 07-01-2024 History of Present illness Narrative Reason for [...] Ambulatory Problems Past Medical History: Diagnosis Date Currently H/O LEEP 2021 History of loop electrosurgical excision procedure (LEEP) affecting care of mother, antepartum Irregular periods/menstrual cycles Pap smear for cervical cancer screening 2021 PCOS (polycystic ovarian syndrome) Swelling of lower extremity during , unspecified trimester HISTORY PAST MEDICAL HISTORY SOCIAL HISTORY Past Medical History: Diagnosis Date Currently H/O LEEP 2021 abnormal cells History of loop electrosurgical excision procedure (LEEP) affecting care of mother, antepartum Irregular periods/menstrual cycles Pap smear for cervical cancer screening 2021 Dr. Moran PCOS (polycystic ovarian syndrome) Swelling of lower extremity during , unspecified trimester Social History Tobacco Use Smoking status: Not [...] reviewed. Vitals: Estimated body mass index is 34.28 kg/m as calculated from the following: Height as of 12/20/23: 5' 5 . Weight as of this encounter: 206 lb. BP: 110/60 Patient's last menstrual period was 12/04/2023. ASSESSMENT & PLAN ICD-10-CM 1. size inconsistent with dates O26.849 US OB follow up transabdominal approach 2. 30 weeks gestation of Z3A.30 POCT urinalysis dipstick manually resulted 3. Third trimester Z34.93 POCT urinalysis dipstick manually resulted Return OB: Patient presents today for a routine obstetrics appointment. Patient is currently 30w0d . Patient states she is doing well but has complaints of being tired due to current . Patient has verbalizes frequent movement. labor precautions was discussed/given and patient was instructed to perform kick counts three times a day. Orders Placed This Encounter Procedures US OB follow up transabdominal approach POCT urinalysis dipstick manually resulted Follow Up: Patient is to return to office in 2 week for routine OB appointment. Documented by MOODY Gilman on behalf of: MOODY Gilman documented in this encounter [facility] 06-17-2024 History of Present illness Narrative Reason for [...] Ambulatory Problems Past Medical History: Diagnosis Date Currently H/O LEEP 2021 History of loop electrosurgical excision procedure (LEEP) affecting care of mother, antepartum Irregular periods/menstrual cycles Pap smear for cervical cancer screening 2021 PCOS (polycystic ovarian syndrome) Swelling of lower extremity during , unspecified trimester HISTORY PAST MEDICAL HISTORY SOCIAL HISTORY Past Medical History: Diagnosis Date Currently H/O LEEP 2021 abnormal cells History of loop electrosurgical excision procedure (LEEP) affecting care of mother, antepartum Irregular periods/menstrual cycles Pap smear for cervical cancer screening 2021 Dr. Moran PCOS (polycystic ovarian syndrome) Swelling of lower extremity during , unspecified trimester Social History Tobacco Use Smoking status: Not [...] nursing note reviewed. Exam conducted with a applications programmer analyst present. Vitals: Estimated body mass index is 33.61 kg/m as calculated from the following: Height as of 12/20/23: 5' 5 . Weight as of this encounter: 202 lb. BP: 118/72 Patient's last menstrual period was 12/04/2023. ASSESSMENT & PLAN ICD-10-CM 1. Third trimester Z34.93 POCT urinalysis dipstick manually resulted 2. 28 weeks gestation of Z3A.28 Return OB: Patient presents today for a routine obstetrics appointment. Patient is currently 28w0d . Patient states she is doing well but has complaints of being tired due to current . Patient has verbalizes frequent movement. labor precautions was discussed/given and patient was instructed to perform kick counts three times a day. Orders Placed This Encounter Procedures POCT urinalysis dipstick manually resulted Follow Up: Patient is to return to office in 2 week for routine OB appointment. Documented by Pretty Art LPN on behalf of: Roro Vaughan DO documented in this encounter [facility] 05-20-2024 History of Present illness Narrative Reason [...] nursing note reviewed. Exam conducted with a applications programmer analyst present. Vitals: Estimated body mass index is [...] by Pretty Art LPN on behalf of: Roro Vaughan DO documented in this encounter [facility] 04-21-2024 History of Present illness Narrative Reason [...] of: MOODY Gilman documented in this encounter [facility] 03-19-2024 History of Present illness Narrative Reason [...] nursing note reviewed. Exam conducted with a applications programmer analyst present. Vitals: Estimated body mass index is [...] by Pretty Art LPN on behalf of: Roro Vaughan DO documented in this encounter [facility] 03-17-2024 Note Microbiology PROCEDURE: Cervical Culture [R1] [...] cells present No yeast seen SUSCEPTIBILITY RESULTS ____ LEGEND: S=Susceptible, N/R=Not Reported, Blank=Data not available, [...] Locations R1: This test was performed at: [facility], [address] [place] [address], [facility]- , , [facility] Comment on above: Performed By: #### 1 [id number] #### [facility] [address] [place] [address] 03-15-2024 Evaluation + Plan note Extrac hernesto [...] is discharged home to follow-up with her MICROBIOLOGICAL LABORATORY TECHNICIAN physician educated on return precautions. Additional diagnosis: Threatened [facility] 11-09-2024 Hospital Discharge instructions Follow Up Care 03/15/2024 04:00:46 With:Roro VAUGHAN Address: [address] [place] [address]- Business (1) When:03/18/2024 08:03:16 With:Dave Red Address: [address] [place] [address]- Business (1) When:Within 3 Day(s) [facility] 10-28-2024 History of Present illness Narrative* [...] nursing note reviewed. Exam conducted with a applications programmer analyst present. Vitals: Estimated body mass index is [...] or undercooked meat, and [facility] Patient has been consulted regarding any [...] by Yuliet Elizalde LPN on behalf of: Roro Vaughan DO [id number] History of Present illness Narrative* Jasmin Grimaldo LPN - 01/31/2024 2:00 PM EDT Reason [...] or undercooked meat, and [facility]. Patient has also been advised to [...] by: Jasmin Grimaldo LPN [id number] Hospital Discharge instructions Patient Education 11/15/2023 13:24:19 [...] soapy water. ?Keep raw meats separate from ccgbu-pr-zxf foods, such as fruits and vegetables. ?manipulator operator, meat, poultry, and eggs to the [...] include 1 slice of bread, 1 cup tuuca-te-ajs cereal, 3 cups popcorn, or cup cooked [...] provider. Document Revised: 12/20/2021 Document Reviewed: 12/20/2021 [employer] Patient Education 2022 [employer] 11/15/2023 13:24:01 Exercising to Lose Weight [...] health care provider or diet and nutrition tech (dietitian). This may include: ?Eating fewer calories. [...] provider. Document Revised: 06/19/2021 Document Reviewed: 06/19/2021 [employer] Patient Education 2022 [employer] 11/15/2023 13:23:59 BMI for Adults BMI for [...] numbers. This can be done either in [place] ([place] or metric measurements. Note that charts and online BMI calculators are available to help you find your BMI quickly and easily without having to do these calculations yourself. To calculate your BMI in [place] ([place] measurements: 1.Measure your weight in pounds [...] Centers for Disease Control and Prevention: www.cdc.gov [place] Heart Association: www.heart.org National Heart, Lung, and Blood [place]: www.nhlbi.nih.gov Summary Body mass index (BMI) is a number that is calculated from a person's weight and height. BMI may help estimate how much of a person's weight is composed of fat. BMI can help identify thosewho may be at higher risk for certain medical problems. BMI can be measured using Tunisian measurements or metric measurements. BMI charts are used to identify whether you are underweight, normal weight, overweight, or obese. This information is not intended to replace advice given to you by your health care provider. Make sure you discuss any questions you have with your health care provider. Document Revised: 01/14/2020 Document Reviewed: 11/21/2019 [employer] Patient Education 2022 [employer] 11/15/2023 13:23:56 How to Use Cold Therapy, Yqmu-xl-Zyzk How to Use Cold Therapy Cold therapy, [...] provider. Document Revised: 03/09/2021 Document Reviewed: 03/09/2021 [employer] Patient Education 2022 [employer] 11/15/2023 13:23:47 Hand Pain Hand Pain Many [...] discomfort: Managing pain, stiffness, and swelling Take wxdt-loc-qnkshdp and prescription medicines only as told by [...] provider. Document Revised: 08/10/2022 Document Reviewed: 08/11/2021 [employer] Patient Education 2022 [employer] Follow Up Care 11/15/2023 10:03:53 With:Teofilo BRANDT, TREVOR Jimenez Address: [address] [place] [id number]- When: Unknown [facility] 07-11-2024 NotePatient Education [...] water. ? Keep raw meats separate from khdef-rp-hbm foods, such as fruits and vegetables. ? manipulator operator, meat, poultry, and eggs to the [...] include 1 slice of bread, 1 cup bxcqb-zj-ywi cereal, 3 cups popcorn, or ? cup [...] for about 5 teas (more content not included)...[facility] 07-23-2023 Evaluation + Plan note Diagnostic Tests Pending * Urine Culture 07/23/23 [facility]03-18-2024 Hospital Discharge instructions Patient Education 07/23/2023 [...] to keep your urine pale yellow. ?Take pvth-dlg-wpaimry or prescription medicines. ?Eat foods that are high in fiber, such as beans, whole grains, and fresh fruits and vegetables. ?Limit foods that are high in fat and processed sugars, such as fried or sweet foods. General instructions Take ybes-fdl-qpbcnsu and prescription medicines only as told by [...] the muscles that help control urination. Take ujee-oal-ftpepae and prescription medicines only as told by your health care provider. Contact a health care provider if your symptoms do not improve or get worse. This information is not intended to replace advice given to you by your health care provider. Make sure you discuss any questions you have with your health care provider. Document Revised: 11/26/2020 Document Reviewed: 11/26/2020 [employer] Patient Education 2022 [employer] 07/23/2023 10:36:54 BMI for Adults BMI for [...] numbers. This can be done either in [place] ([place].S[place] or metric measurements. Note that charts and online BMI calculators are available to help you find your BMI quickly and easily without having to do these calculations yourself. To calculate your BMI in [place] ([place].) measurements: 1.Measure your weight in pounds [...] Centers for Disease Control and Prevention: www.cdc.gov [place] Heart Association: www.heart.org National Heart, Lung, and Blood [place]: www.nhlbi.nih.gov Summary Body mass index (BMI) is a number that is calculated from a person's weight and height. BMI may help estimate how much of a person's weight is composed of fat. BMI can help identify thosewho may be at higher risk for certain medical problems. BMI can be measured using [place]ian measurements or metric measurements. BMI charts are used to identify whether you are underweight, normal weight, overweight, or obese. This information is not intended to replace advice given to you by your health care provider. Make sure you discuss any questions you have with your health care provider. Document Revised: 01/14/2020 Document Reviewed: 11/21/2019 [employer] Patient Education 2022 [employer] Follow Up Care 07/23/2023 09:05:39 With:Teofilo BRANDT, TREVOR Jimenez Address: [address] [place], [place] [id number]- When: Unknown [facility] 02-13-2024 History of Present illness Narrative* Roro Vaughan DO - 06/19/2023 8:10 AM EST Reason for Appointment: Patient ID: Racquel Yadav is a 27 y.o. female who presents for TELEHEALTH FOLLOW UP and Infertility Patient presents today via telephone call for a telehealth appointment. 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 Your first period may not be normal, [...] Up Care 07/12/2021 14:08:06 With:Mark Moffett Address: [address] [place] [address] [place], [place] [id number] [facility] (1) When:2 weeks Comments:Call for any problems. [facility] No data available for this section [facility] note* Diagnosis Female infertility Female infertility of [...] episode of care documented in this encounter [facility]* Diagnosis Missed menses , unspecified gestational age Encounter for supervision of normal first in first trimester documented in this encounter [facility]* Diagnosis 24 weeks gestation of Second trimester state, incidental Diabetes mellitus screening Screening for diabetes mellitus Screening, , for anatomic survey Encounter for anatomic survey documented [facility]* Diagnosis Third trimester state, incidental 28 weeks gestation of documented in this encounter [facility]* Diagnosis size inconsistent with dates- Primary 30 weeks gestation of Third trimester state, incidental documented in [facility]* Diagnosis Third trimester state, incidental 32 weeks gestation of documented in this encounter [facility]* Diagnosis Third trimester state, incidental 34 weeks gestation of documented [facility]* Diagnosis 36 weeks gestation of Third trimester state, incidental [facility] No data available for this section [facility] No data available for this section [facility] Summary Purpose Family [...] section and content) DATE CREATED AUTHOR 10/31/2017 [facility] DATE CREATED AUTHOR AUTHOR'S ORGANIZ ATION 06/10/2020 [employer] DATE CREATED AUTHOR AUTHOR'S ORGANIZ ATION 03/17/2024 [facility] DATE CREATED AUTHOR AUTHOR'S ORGANIZ ATION 03/20/2024 [facility] Reason for Visit (unrecogniz ed section and content) Reason Comments TELEHEALTH FOLLOW UP Infertility Reason Comments ER Follow-up Reason Comments Routine Visit Reason Comments Amenorrhea Patient Care team informatio n (unrecognized section and content) Personnel Name: Dave Red MD Address: Address: [address] [place] [address] Personnel Name: Dave Red MD Address: Address: [address] [place] [address] Personnel Name: Dave Red MD Address: Address: [address] [place] [address] Personnel Name: Dave Red MD Address: Address: [address] [place] [address] Personnel Name: Dave Red MD Address: Address: [address] [place] [address] Personnel Name: Dave Red MD Address: Address: [address] [place] [address] FOR RECORDS PERTAINING TO PATIENTS WHO ARE [...] BE BASED ON THE PRIMARY CLINICAL RECORDS. [facility] [employer] [facility]. provides no warranty or guarantee of the accuracy or completeness of information in this document.
== END 2024-08-13 21:14 | disposition home or self-care (01) ==
LOC: LAB 21:13
PROVIDERS: Visit Provider Obstetrics & Gynecology
DX: Z34.93 Encounter for supervision of normal pregnancy, unspecified, third trimester (principal)
CPT/HCPCS: 36415; 87081

== ENCOUNTER 2024-09-02 19:28 | Inpatient (IN) | payer SELFPAY ==
[2024-09-02] VITALS (7 sets, daily range): PULSE 75–105; TEMP 36.4–36.7
[2024-09-02 20:32] LABS: Hematocrit 34.5 % (36.0-48.0); Hemoglobin 12.1 g/dL (12.0-16.0); Mean Corpuscular HGB Conc 35.1 g/dL (29.9-35.2); Mean Corpuscular Hemoglobin 30.3 pg (26.7-34.0); Mean Corpuscular Volume 86.3 fL (81.0-99.0); Mean Platelet Volume 10.6 fL (9.5-13.5); Platelet Count 295 10^3/uL (150-450); Red Cell Distribution Width 13.4 % (11.0-15.0); White Blood Count 14.6 10^3/uL (4.0-11.0)
[2024-09-02] MEDS: MISOPROSTOL 100 MCG TABLET 25 MCG VAGINAL (20:57)
[2024-09-02 23:29] LABS: Amphetamine Screen Urine NEGATIVE (NEGATIVE); Barbiturates Screen Urine NEGATIVE (NEGATIVE); Benzodiazepines Screen Urine NEGATIVE (NEGATIVE); Buprenorphine Screen Urine NEGATIVE (NEGATIVE); Cannabinoid Screen Urine NEGATIVE (NEGATIVE); Cocaine Screen Urine NEGATIVE (NEGATIVE); Methadone Screen Urine NEGATIVE (NEGATIVE); Methamphetamines Screen Urine NEGATIVE (NEGATIVE); Opiate Screen Urine NEGATIVE (NEGATIVE); Oxycodone Screen Urine NEGATIVE (NEGATIVE); Phencyclidine Screen Urine NEGATIVE (NEGATIVE); Tricyclic Antidepressant Urine NEGATIVE (NEGATIVE)
[2024-09-03] VITALS (41 sets, daily range): BP systolic 88–121; BP diastolic 51–77; PULSE 70–127; TEMP 36.2–36.7
[2024-09-03] MEDS: MISOPROSTOL 100 MCG TABLET 25 MCG VAGINAL ×2 (00:02→03:00)
[2024-09-03] MEDS: OXYTOCIN/0.9 % SODIUM CHLORIDE 10 UNITS/500 ML PLAST..BAG 6 UNIT IV (07:00)
[2024-09-03] MEDS: 0.9 % SODIUM CHLORIDE 1,000 ML 125 ML IV (07:01)
[2024-09-03] MEDS: ONDANSETRON PF 4 MG/2 ML VIAL IV (07:24)
[2024-09-03] MEDS: ROPIVACAINE HCL/PF 400 MG/200 ML PREMIX 10 MG EPIDURAL (10:03)
[2024-09-03] MEDS: 0.9 % SODIUM CHLORIDE 1,000 ML 1000 ML IV (10:04)
[2024-09-03] MEDS: OXYTOCIN/0.9 % SODIUM CHLORIDE 20 UNITS/1,000 ML PLAST..BAG 125 UNIT IV (14:23)
[2024-09-03] MEDS: BENZOCAINE/MENTHOL 85 GRAM SPRAY BOTTLE 1 APPLIC TOPICAL (18:37)
[2024-09-03] MEDS: IBUPROFEN 600 MG TABLET PO (18:38)
--- NOTE | 2024-09-03 22:15 | PM.OBPRCVD ---
Procedure Intrapartal events: None Induction method: per misoprostol protocol Delivery augmentation: rupture of membranes and pitocin Delivery monitor: external FHT and external uterine Route of delivery: Episiotomy Description: none L&D Laceration Description: none Estimated blood loss (mL): 250 Anesthesia type: Epidural Disposition: floor Delivery date: 09/03/24 Gender: male presentation: vertex Placental delivery description: Spontaneous cord description: 3 Vessels Labor State Duration Labor - Stage 3 Duration: 2 minutes
[2024-09-04] VITALS (7 sets, daily range): BP systolic 117–121; BP diastolic 65–80; PULSE 74–93; TEMP 35.9–36.6
[2024-09-04] MEDS: IBUPROFEN 600 MG TABLET PO ×3 (00:17→21:30)
[2024-09-04 06:19] LABS: Basophils Absolute Auto 0.1 10^3/uL (0.0-0.1); Basophils Percent Auto 0.3 % (0.2-2.0); Eosinophils Absolute Auto 0.2 10^3/uL (0.0-0.7); Hematocrit 32.8 % (36.0-48.0); Hemoglobin 11.4 g/dL (12.0-16.0); Immature Granulocytes Abs Auto 0.12 10^3/uL (0.00-0.03); Immature Granulocytes Pct Auto 0.8 % (0.0-0.5); Lymphocytes Absolute Auto 2.1 10^3/uL (1.2-3.8); Lymphocytes Percent Auto 13.2 % (20.5-60.0); Mean Corpuscular HGB Conc 34.8 g/dL (29.9-35.2); Mean Corpuscular Hemoglobin 30.6 pg (26.7-34.0); Mean Corpuscular Volume 88.2 fL (81.0-99.0); Mean Platelet Volume 10.3 fL (9.5-13.5); Monocytes Percent Auto 6.6 % (1.7-12.0); Neutrophils Absolute Auto 12.2 10^3/uL (1.4-6.5); Neutrophils Percent Auto 78.1 % (43.0-75.0); Platelet Count 263 10^3/uL (150-450); Red Blood Count 3.72 10^6/uL (4.20-5.40); Red Cell Distribution Width 13.5 % (11.0-15.0); White Blood Count 15.6 10^3/uL (4.0-11.0)
--- NOTE | 2024-09-04 07:38 | P.OBPN_ITS ---
OB - PN: Subj Subjective Patient comments: no complaints and pain well controlled [place] status: doing well Exam Constitutional Vital Signs, click to edit/add: Last Vital Signs Temp 97.9 F 09/04/24 00:10 Pulse 74 09/04/24 00:14 Resp 18 09/04/24 00:10 BP 117/79 09/04/24 00:14 O2 Del Method Room Air 09/04/24 00:10 Documenting provider has reviewed patient's vital signs: yes Common normals: no apparent distress Respiratory Common normals: normal respiratory effort Cardio Common normals: regular rate and regular rhythm GI Common normals: Normal to inspection, nondistended, normoactive bowel sounds present Extremity Common normals: no clubbing, cyanosis or edema and no calf tenderness Results Labs Labs: Short CBC 09/04/24 Range/Units 06:08 WBC 15.6 H (4.0-11.0) 10^3/uL Hgb 11.4 L (12.0-16.0) g/dL Hct 32.8 L (36.0-48.0) % Plt Count 263 (150-450) 10^3/uL OB - PN: A/P Plan - Vaginal Delivery day: 1 Plan: routine care Time Spent with Patient Time: Total time spent is greater than 50% in coordination of care (as documented) at patient's floor/unit and/or counseling patient: Total time spent with greater than 50% in coordination of care (as documented) at patient's floor/unit and/or counseling patient: less than 15 minutes
[2024-09-04] MEDS: DOCUSATE SODIUM 100 MG CAPSULE PO ×2 (09:26→21:30)
[2024-09-04] MEDS: ACETAMINOPHEN 325 MG TABLET 650 MG PO (10:37)
[2024-09-05 08:13] VITALS: BP 132/62; PULSE 84
[2024-09-05] MEDS: DOCUSATE SODIUM 100 MG CAPSULE PO (08:14)
[2024-09-05 08:15] VITALS: TEMP 37.2
[2024-09-05] MEDS: IBUPROFEN 600 MG TABLET PO (08:26)
--- NOTE | 2024-09-05 10:32 | PM.OBPN ---
OB - PN: Subj Subjective Patient comments: no complaints Everson status: doing well feeding status: exclusively bottle feeding Exam Constitutional Vital Signs, click to edit/add: Last Vital Signs Temp 97.7 F 09/04/24 23:45 Pulse 84 09/05/24 08:13 Resp 18 09/04/24 23:45 BP 132/62 09/05/24 08:13 O2 Del Method Room Air 09/04/24 23:45 Documenting provider has reviewed patient's vital signs: yes Common normals: no apparent distress General appearance: cooperative Orientation/consciousness: Yes awake, Yes oriented to person, Yes oriented to place and Yes oriented to time HENMT Common normals: normocephalic Eye Common normals: EOMs intact bilaterally Neck & C-Spine Common normals: full ROM General: normal visual inspection Lymph Lymphatic: no lymphadenopathy noted Chest Common normals: inspection of chest normal Respiratory Common normals: normal respiratory effort, no retractions, no use of accessory muscles and clear to auscultation bilaterally Effort & inspection: able to speak in complete sentences Auscultation: clear to auscultation bilaterally Cardio Common normals: regular rate and regular rhythm Rate: regular rate Rhythm: regular rhythm GI Common normals: Normal to inspection, nondistended, normoactive bowel sounds present Inspection: normal to inspection Auscultation: normoactive bowel sounds Palpation: soft Common normals: no CVA tenderness Back & Pelvis Common normals: no CVA tenderness Extremity Common normals: normal to inspection and full ROM Neuro Common normals: oriented x3 Sensorium/orientation: awake, alert, oriented to person, oriented to place and oriented to time Psych Common normals: mental status grossly normal, thought process normal, cooperative, affect normal, speech normal, activity/motor behavior normal, denies hallucinations, denies homicidal ideation and denies suicidal ideation Appearance: grossly normal Attitude: calm OB - PN: A/P Plan - Vaginal Delivery day: 2 Plan: routine care Time Spent with Patient Time: Total time spent is greater than 50% in coordination of care (as documented) at patient's floor/unit and/or counseling patient: Total time spent with greater than 50% in coordination of care (as documented) at patient's floor/unit and/or counseling patient: less than 15 minutes
== END 2024-09-05 15:00 | disposition home or self-care (01) | DRG 807 ==
PROVIDERS: Admitting Provider Obstetrics & Gynecology; Visit Provider Obstetrics & Gynecology
DX: O99.284 Endocrine, nutritional and metabolic diseases complicating childbirth (principal); Z37.0 Single live birth; E28.2 Polycystic ovarian syndrome; Z3A.39 39 weeks gestation of pregnancy; Z23 Encounter for immunization
CPT/HCPCS: 36415; 51702; 59050; 59410; 80307; 85025; 85027; 86850; 86900; 86901; J2405; J2795

== ENCOUNTER 2024-11-19 15:17 | Outpatient (REF) | payer SELFPAY ==
--- OUTSIDE RECORDS SUMMARY | 2024-11-19 18:22 | XMS_ITS | CCD ---
Author Organization [facility] Care Team Providers Care Color Artist Name Role Phone PHYSICIAN, DEFAULT Unavailable Unavailable [...] Medication Allergies] Propensity to adverse reactions (disorder) [facility] Repository Medications Current Medications Medication Drug Class(es) Dates Sig (Normalized) Sig (Original) cephalexin 500 mg oral capsule (5 sources) Cephalosporin Antibacterial Start: 11-19-2024 End: 11-26-2024 take 1 capsule by mouth in the morning cephalexin (Keflex) 500 MG capsule Indications: Well woman exam with routine gynecological exam Take 1 capsule (500 mg) by mouth in the morning and 1 capsule (500 mg) before bedtime. Do all this for 7 days. 14 capsule 11/19/2024 11/26/2024 Active Start: 03-03-2024 End: 03-10-2024 take 1 capsule [...] for 7 days. 21 capsule 03/03/2024 03/10/2024 estrogens, conjugated (longterm) 0.625 mg/ml vaginal cream (2 sources) Estrogen Start: 11-19-2024 End: 12-19-2024 Estrogens Conjugated (Premarin) 0.625 MG/GM cream Indications: Well woman exam with routine gynecological exam Insert 1 g into the vagina Daily Insert 1/2 applicator at bedtime nightly for 2 weeks then twice a week thereafter 30 g 3 11/19/2024 12/19/2024 Active ibuprofen 600 mg oral tablet (2 sources) Nonsteroidal Anti-inflammatory Drug Start: 07-29-2021 take 1 tablet by mouth every six hours ibuprofen 600 mg Tab 600 mg = 1 tab(s), Oral, q6hr, # 10 tab(s), Refills(s) 0, Pharmacy: [facility] 1986, 164, cm, 07/20/21 5:00:00 EDT, Height/Length [...] meals. 30 tablet 11 02/13/2023 02/13/2024 Active metroNIDAZOLE 500 mg oral tablet (1 source) Nitroimidazole Antimicrobial Start: 10-20-2024 End: 10-27-2024 take 1 tablet by mouth in the morning metroNIDAZOLE (Flagyl) 500 MG tablet Indications: BV (bacterial vaginosis) Take 1 tablet (500 mg) by mouth in the morning and 1 tablet (500 mg) before bedtime. Do all this for 7 days. Do not drink alcohol while taking this medication. 14 tablet 10/20/2024 10/27/2024 Active ondansetron 4 mg disintegrating oral tablet (20 sources) Serotonin-3 Receptor Antagonist Start: 07-29-2024 End: 08-25-2024 take 1 tablet by mouth every eight hours for nausea ondansetron ODT (Zofran-ODT) 4 MG disintegrating tablet Indications: Nausea and vomiting in pediatric patient Take 1 tablet (4 mg) by mouth every 8 (eight) hours if needed for nausea 20 tablet 1 08/25/2024 Active Start: 06-10-2024 End: 07-10-2024 take 1 [...] days 60 tablet 3 01/17/2024 02/01/2024 Active phentermine hydrochloride 37.5 mg oral tablet (11 sources) Sympathomimetic Amine Anorectic Start: 10-22-2024 End: 02-17-2025 take 1 tablet by mouth before mealtime phentermine (Adipex-P) 37.5 MG tablet Indications: Encounter for weight management Take 1 tablet (37.5 mg) by mouth in the morning. Take before meals. 90 tablet 11/19/2024 02/17/2025 Active Start: 12-20-2023 End: 01-31-2024 take 1 tablet by mouth before mealtime phentermine (Adipex-P) 37.5 MG tablet Indications: Encounter for weight management Take 1 tablet (37.5 mg) by mouth in the morning. Take before meals. 30 tablet 12/20/2023 01/31/2024 Discontinued (Other) Completed/Discontinued Medications Medication Drug Class(es) Dates Sig (Normalized) Sig (Original) medroxyPROGESTERone acetate 10 mg oral tablet (15 [...] 7 days. 14 capsule 01/04/2024 01/11/2024 Active promethazine hydrochloride 12.5 mg oral tablet (20 [...] Problem Classification Problem Date Documented Date Episodic/Chronic Abdominal pain (2 sources) Pain in female pelvis; Translations: [Pelvic and perineal pain] 10-16-2024 Episodic Anxiety disorders (8 sources) Generalized anxiety disorder [...] 07-23-2023 Chronic Other and delivery including normal (20 sources) First trimester ; Translations: [Encounter for supervision of normal , unspecified, first trimester] 03-03-2024 Episodic Other screening for suspected conditions (not mental disorders or infectious disease) (12 sources) Patient encounter status; Translations: [Encounter for [...] [36 weeks gestation of ] 08-13-2024 Episodic Residual codes; unclassified (2 sources) Gestation period, 37 weeks; Translations: [37 weeks gestation of ] 08-21-2024 Episodic Residual codes; unclassified (2 sources) Gestation period, 38 weeks; Translations: [38 weeks gestation of ] 08-28-2024 Episodic Substance-related disorders (8 sources) Smoker 07-19-2021 [...] Range Facility Urinalysis macro (dipstick) panel (U)on 11-19-2024 Bilirubin, UA Negative Negative - 4(70) +++ mg/dL [facility] Blood, UA Positive Negative - 50 Moncho/mcL [facility] Comment on above: Trace Clarity, UA Clear [facility] Color, UA Light Yellow [facility] Glucose, UA Negative Negative - 1999(110) ++++ mg/dL [facility] Interpretation and review of laboratory results Abnormal [facility] Ketones, UA Positive Negative - 160(16) ++++ mg/dL [facility] Comment on above: Trace Leukocytes, UA Moderate Negative - 500+++ Bhavik/mcL [facility] Nitrite, UA Negative Negative - Positive [facility] pH, UA 6.5 5 - 9 [facility] Protein, UA Negative Negative - 1999(20) ++++ mg/dL [facility] Spec Grav, UA 1.005 1 - 1.03 [facility] Urobilinogen, UA 0.2 0.2 - 12 mg/dL [facility] Urinalysis macro (dipstick) panel (U)on 10-16-2024 Bilirubin, UA Negative Negative - 4(70) +++ mg/dL [facility] Blood, UA Negative Negative - 50 Moncho/mcL [facility] Clarity, UA Clear [facility] Color, UA Yellow [facility] Glucose, UA Negative Negative - 1999(110) ++++ mg/dL [facility] Interpretation and review of laboratory results Normal [facility] Ketones, UA Negative Negative - 160(16) ++++ mg/dL [facility] Leukocytes, UA Negative Negative - 500+++ Bhavik/mcL [facility] Nitrite, UA Negative Negative - Positive [facility] pH, UA 7 5 - 9 [facility] Protein, UA Negative Negative - 1999(20) ++++ mg/dL [facility] Spec Grav, UA 1.02 1 - 1.03 [facility] Urobilinogen, UA 0.2 0.2 - 12 mg/dL [facility] ALL CBC WITH AUTO DIFFon BASOPHILS ABSOLUTE AUTO 0.1 [facility] Basophils/100 WBC (Bld) 0.3 % 0.2 - 2.0 % [facility] Eosinophils/100 WBC (Bld) 1 % 0.9 - 7.0 % [facility] Erythrocyte distribution width (RBC) [Ratio] 13.5 % 11.0 - 15.0 % [facility] Hematocrit (Bld) [Volume fraction] 32.8 % Low 36.0 - 48.0 % [facility] Hemoglobin (Bld) [Mass/Vol] 11.4 g/dL Low 12.0 - 16.0 g/dL [facility] IMMATURE GRANULOCYTES ABS AUTO 0.12 High [facility] Immature granulocytes/100 WBC (Bld) 0.8 % High 0.0 - 0.5 % [facility] Interpretation and review of laboratory results Abnormal [facility] LYMPHOCYTES ABSOLUTE AUTO 2.1 [facility] Lymphocytes/100 WBC (Bld) 13.2 % Low 20.5 - 60.0 % [facility] MCH (RBC) [Entitic mass] 30.6 pg 26.7 - 34.0 pg [facility] MCHC (RBC) [Mass/Vol] 34.8 g/dL 29.9 - 35.2 g/dL [facility] MCV (RBC) [Entitic vol] 88.2 fL 81.0 - 99.0 fL [facility] MONOCYTES ABSOLUTE AUTO 1 High [facility] Monocytes/100 WBC (Bld) 6.6 % 1.7 - 12.0 % [facility] NEUTROPHILS ABSOLUTE AUTO 12.2 High [facility] Neutrophils/100 WBC (Bld) 78.1 % High 43.0 - 75.0 % [facility] Platelet mean volume (Bld) [Entitic vol] 10.3 fL 9.5 - 13.5 fL [facility] EO # 0.[address] [facility] PLT 263 [facility] RBC 3.72 Low [facility] WBC 15.6 High [facility] DRUG SCREEN RAPID (URINE )on 09-02-2024 AMPHETAMINE SCREEN URINE Negative NEGATIVE [facility] BARBITURATES SCREEN URINE Negative NEGATIVE [facility] BENZODIAZEPINES SCREEN URINE Negative NEGATIVE [facility] BUPRENORPHINE SCREEN URINE Negative NEGATIVE [facility] Comment on above: DRUG CLASS TEST SYST EM CUT-OFF CONCENTRATIONS ARE FOLLOWS: AMP (Amphetamine): 500 ng/mL BAR (Barbiturates): 200 ng/mL BZO (Benzodiazepines): 150 ng/mL BUP (Buprenorphine): 10 ng/mL NICHOLAS (Cocaine): 150 ng/mL mAMP (Methamphetamine): 500 ng/mL MTD (Methadone): 200 ng/mL OPI (Opiates): 100 ng/mL OXY (Oxycodone): 100 ng/mL PCP (Phencyclidine): 25 ng/mL THC (Cannabinoids): 50 ng/mL TCA (Trycyclic Antidepressants): 300 ng/mL CANNABINOID SCREEN URINE Negative NEGATIVE [facility] COCAINE SCREEN URINE Negative NEGATIVE [facility] METHADONE SCREEN URINE Negative NEGATIVE [facility] METHAMPHETAMINES SCREEN URINE Negative NEGATIVE [facility] OPIATE SCREEN URINE Negative NEGATIVE [facility] OXYCODONE SCREEN URINE Negative NEGATIVE [facility] PHENCYCLIDINE SCREEN URINE Negative NEGATIVE [facility] TRICYCLIC ANTIDEPRESSANT URINE Negative NEGATIVE [facility] Urinalysis macro (dipstick) panel (U)on 08-28-2024 Bilirubin, UA Negative Negative - 4(70) +++ mg/dL [facility] Blood, UA Positive Negative - 50 Moncho/mcL [facility] Comment on above: Trace-intact Clarity, UA Clear [facility] Color, UA Yellow [facility] Glucose, UA Positive Negative - 1999(110) ++++ mg/dL [facility] Comment on above: 100mg/dL Interpretation and review of laboratory results Abnormal [facility] Ketones, UA Negative Negative - 160(16) ++++ mg/dL [facility] Leukocytes, UA Negative Negative - 500+++ Bhavik/mcL [facility] Nitrite, UA Negative Negative - Positive [facility] pH, UA 5.5 5 - 9 [facility] Protein, UA Negative Negative - 1999(20) ++++ mg/dL [facility] Spec Grav, UA 1.02 1 - 1.03 [facility] Urobilinogen, UA 0.2 0.2 - 12 mg/dL [facility] Urinalysis macro (dipstick) panel (U)on 08-21-2024 Bilirubin, UA Negative Negative - 4(70) +++ mg/dL [facility] Blood, UA Positive Negative - 50 Moncho/mcL [facility] Comment on above: trace-lysed Clarity, UA Clear [facility] Color, UA Yellow [facility] Glucose, UA Positive Negative - 1999(110) ++++ mg/dL [facility] Comment on above: 250mg/dL Interpretation and review of laboratory results Abnormal [facility] Ketones, UA Positive Negative - 160(16) ++++ mg/dL [facility] Comment on above: trace Leukocytes, UA Negative Negative - 500+++ Bhavik/mcL [facility] Nitrite, UA Negative Negative - Positive [facility] pH, UA 5.5 5 - 9 [facility] Protein, UA Positive Negative - 1999(20) ++++ mg/dL [facility] Comment on above: 30mg/dL Spec Grav, UA 1.03 1 - 1.03 [facility] Urobilinogen, UA 0.2 0.2 - 12 mg/dL [facility] ALL MISCELLANEOUS TESTon MISCELLANEOUS TEST COMMENT . [facility] Comment on above: Test Ordered: [id number] Strep Gp B Culture+Rflx Strep Gp B Culture+Rflx Negative CB Reference Range: Negative Centers for Disease Control and Prevention (CDC) and [place] [employer] of Obstetricians and Gynecologists (ACOG) guidelines for prevention of group B streptococcal (GBS) disease specify co-collection of a vaginal and rectal swab specimen to maximize sensitivity of GBS detection. Per the CDC and ACOG, swabbing both the lower vagina and rectum substantially increases the yield of detection compared with sampling the vagina alone. Penicillin G, ampicillin, or cefazolin are indicated for intrapartum prophylaxis of GBS colonization. Reflex susceptibility testing should be performed prior to use of clindamycin only on GBS isolates from penicillin- allergic women who are considered a high risk for anaphylaxis. Treatment with vancomycin without additional testing is warranted if resistance to clindamycin is noted. Performed at: - [facility] [id number] Foam Charger: Jun Mike PhD, Phone: [phone] GROUP B STREP SWAB [id number] CULTURE, GROUP B STREP WITH SUSCEPTIBILITY [facility] macro (dipstick) panel (U)on 08-13-2024 Bilirubin, UA Negative Negative - 4(70) +++ mg/dL [facility] Blood, UA Negative Negative - 50 Moncho/mcL [facility] Clarity, UA Clear [facility] Color, UA Yellow [facility] Glucose, UA Positive Negative - 1999(110) ++++ mg/dL [facility] Comment on above: 1000 Interpretation and review of laboratory results Abnormal [facility] Ketones, UA Positive Negative - 160(16) ++++ mg/dL [facility] Comment on above: 15 Leukocytes, UA Negative Negative - 500+++ Bhavik/mcL [facility] Nitrite, UA Negative Negative - Positive [facility] pH, UA 5.5 5 - 9 [facility] Protein, UA Negative Negative - 1999(20) ++++ mg/dL [facility] Spec Grav, UA 1.025 1 - 1.03 [facility] Urobilinogen, UA 1.0 0.2 - 12 mg/dL [facility] Urinalysis macro (dipstick) panel (U)on 07-30-2024 Bilirubin, UA Negative Negative - 4(70) +++ mg/dL [facility] Blood, UA Negative Negative - 50 Moncho/mcL [facility] Clarity, UA Clear [facility] Color, UA Light Yellow [facility] Glucose, UA Positive Negative - 1999(110) ++++ mg/dL [facility] Comment on above: 250mg/dL Interpretation and review of laboratory results Abnormal [facility] Ketones, UA Negative Negative - 160(16) ++++ mg/dL [facility] Leukocytes, UA Negative Negative - 500+++ Bhavik/mcL [facility] Nitrite, UA Negative Negative - Positive [facility] pH, UA 5.5 5 - 9 [facility] Protein, UA Negative Negative - 1999(20) ++++ mg/dL [facility] Spec Grav, UA 1.025 1 - 1.03 [facility] Urobilinogen, UA 0.2 0.2 - 12 mg/dL [facility] Urinalysis macro (dipstick) panel (U)on 07-16-2024 Bilirubin, UA Negative Negative - 4(70) +++ mg/dL [facility] Blood, UA Negative Negative - 50 Moncho/mcL [facility] Clarity, UA Clear [facility] Color, UA Yellow [facility] Glucose, UA Positive Negative - 1999(110) ++++ mg/dL [facility] Comment on above: 500 mg Interpretation and review of laboratory results Abnormal [facility] Ketones, UA Positive Negative - 160(16) ++++ mg/dL [facility] Comment on above: trace Leukocytes, UA Negative Negative - 500+++ Bhavik/mcL [facility] Nitrite, UA Negative Negative - Positive [facility] pH, UA 5.5 5 - 9 [facility] Protein, UA Negative Negative - 1999(20) ++++ mg/dL [facility] Spec Grav, UA 1.03 1 - 1.03 [facility] Urobilinogen, UA 0.2 0.2 - 12 mg/dL [facility] Urinalysis macro (dipstick) panel (U)on 07-01-2024 Bilirubin, UA Negative Negative - 4(70) +++ mg/dL [facility] Blood, UA Negative Negative - 50 Moncho/mcL [facility] Clarity, UA Clear [facility] Color, UA Yellow [facility] Glucose, UA Negative Negative - 1999(110) ++++ mg/dL [facility] Interpretation and review of laboratory results Abnormal [facility] Ketones, UA Negative Negative - 160(16) ++++ mg/dL [facility] Leukocytes, UA Negative Negative - 500+++ Bhavik/mcL [facility] Nitrite, UA Negative Negative - Positive [facility] pH, UA 7.5 5 - 9 [facility] Protein, UA Trace Negative - 1999(20) ++++ mg/dL [facility] Spec Grav, UA 1.02 1 - 1.03 [facility] Urobilinogen, UA 1.0 0.2 - 12 mg/dL [facility] US OB INCOMPLETE ANATOMYon 0 06-30-2024 [place] [address] Ultrasound Report Signed Patient: RACQUEL YADAV MR#: [id number] : 1995 Acct:[id number] Age/Sex: 28 / F ADM Date: 06/30/24 Loc: US Attending Dr: Nakul Vaughan D.O. Ordering Physician: Nakul Vaughan D.O. Date of Service: 06/30/24 Procedure(s): US OB incomplete anatomy Accession Number(s): [id number] cc: Nakul Vaughan D.O.; Physician,Non-Staff M.DJonathan The [place] [id number] Patient Name: RACQUEL YADAV MRN: [id number] date: 1995 Sex: F Assigned Patient Location: US Current Patient Location: US Accession/Order Number: [id number] Exam Date: 06/30/2024 13:38 Report Date: 06/30/2024 16:34 At the request of: NAKUL VAUGHAN DO Procedure: US OB incomplete anatomy [...] Pretty Peña M.D.06/30/2024 4:34 PM Dictation Location: [place] [address] Electronically authenticated by: [id number] Y Date: 06/30/2024 16:34 Dictated By: Pretty Peña M.D. Signed By: 06/30/24 163 DD/ 33 TD/TT: Patient Accounting Representative: [facility] Radiology, Radiologist, MD - 06/30/2024 [place] [address] Ultrasound Report Signed Patient: RACQUEL YADAV MR#: [id number] : 1995 Acct:[id number] Age/Sex: 28 / F ADM Date: 06/30/24 Loc: US Attending Dr: Nakul Vaughan D.O. Ordering Physician: Nakul Vaughan D.O. Date of Service: 06/30/24 Procedure(s): US OB incomplete anatomy Accession Number(s): [id number] cc: Nakul Vaughan D.O.; Physician,Non-Staff [facility] [place] [id number] Patient Name: RACQUEL YADAV MRN: [facility]:[id number] date: 1995 Sex: F Assigned Patient Location: US Current Patient Location: US Accession/Order Number: [id number] Exam Date: 06/30/2024 13:38 Report Date: 06/30/2024 16:34 At the request of: NAKUL VAUGHAN DO Procedure: US OB incomplete anatomy [...] Pretty Peña M.D.06/30/2024 4:34 PM Dictation Location: [email or web address] Electronically authenticated by: [id number] Y Date: 06/30/2024 16:34 Dictated By: Pretty Peña M.D. Signed By: 06/30/24 163 DD/ 163 TD/TT: Patient Accounting Representative: [facility] Radiology Study observation (narrative) [facility] US OB INCOMPLETE ANATOMYOrde red By: Radiologist Radiology on 06-30-2024 [facility] Work Phone: Urinalysis macro (dipstick) panel (U)on 06-17-2024 Bilirubin, UA Negative Negative - 4(70) +++ mg/dL [facility] Blood, UA Negative Negative - 50 Moncho/mcL [facility] Clarity, UA Clear [facility] Color, UA Yellow [facility] Glucose, UA Positive Negative - 2000(110) ++++ mg/dL [facility] Comment on above: 100 mg Interpretation and review of laboratory results Abnormal [facility] Ketones, UA Negative Negative - 160(16) ++++ mg/dL [facility] Leukocytes, UA Negative Negative - 500+++ Bhavik/mcL [facility] Nitrite, UA Negative Negative - Positive [facility] pH, UA 6 5 - 9 [facility] Protein, UA Negative Negative - 2000(20) ++++ mg/dL [facility] Spec Grav, UA 1.015 1 - 1.03 [facility] Urobilinogen, UA 0.2 0.2 - 12 mg/dL [facility] ALL CBC WITH AUTO DIFFon BASOPHILS ABSOLUTE AUTO 0 [facility] Basophils/100 WBC (Bld) 0.2 % 0.2 - 2.0 % [facility] Eosinophils/100 WBC (Bld) 1 % 0.9 - 7.0 % [facility] Erythrocyte distribution width (RBC) [Ratio] 12.4 % 11.0 - 15.0 % [facility] Hematocrit (Bld) [Volume fraction] 35.9 % Low 36.0 - 48.0 % [facility] Hemoglobin (Bld) [Mass/Vol] 12.1 g/dL 12.0 - 16.0 g/dL [facility] IMMATURE GRANULOCYTES ABS AUTO 0.24 High [facility] Immature granulocytes/100 WBC (Bld) 1.9 % High 0.0 - 0.5 % [facility] Interpretation and review of laboratory results Abnormal [facility] LYMPHOCYTES ABSOLUTE AUTO 2.1 [facility] Lymphocytes/100 WBC (Bld) 17 % Low 20.5 - 60.0 % [facility] MCH (RBC) [Entitic mass] 30.2 pg 26.7 - 34.0 pg [facility] MCHC (RBC) [Mass/Vol] 33.7 g/dL 29.9 - 35.2 g/dL [facility] MCV (RBC) [Entitic vol] 89.5 fL 81.0 - 99.0 fL [facility] MONOCYTES ABSOLUTE AUTO 0.6 [facility] Monocytes/100 WBC (Bld) 4.5 % 1.7 - 12.0 % [facility] NEUTROPHILS ABSOLUTE AUTO 9.5 High [facility] Neutrophils/100 WBC (Bld) 75.4 % High 43.0 - 75.0 % [facility] Platelet mean volume (Bld) [Entitic vol] 9.4 fL Low 9.5 - 13.5 fL [facility] EO # 0.1 [facility] PLT 295 [facility] RBC 4.01 Low [facility] WBC 12.5 High [facility] GLUCOSE 1 HOURon 05-31-2024 Glucose [Mass/Vol] 129 mg/dL NINF - 13 0 mg/dL [facility] macro (dipstick) panel (U)on 05-20-2024 Bilirubin, UA Negative Negative - 4(70) +++ mg/dL [facility] Blood, UA Negative Negative - 50 Moncho/mcL [facility] Clarity, UA Clear [facility] Color, UA Yellow [facility] Glucose, UA Negative Negative - 2000(110) ++++ mg/dL [facility] Interpretation and review of laboratory results Normal [facility] Ketones, UA Negative Negative - 160(16) ++++ mg/dL [facility] Leukocytes, UA Negative Negative - 500+++ Bhavik/mcL [facility] Nitrite, UA Negative Negative - Positive [facility] pH, UA 7 5 - 9 [facility] Protein, UA Negative Negative - 1999(20) ++++ mg/dL [facility] Spec Grav, UA 1.02 1 - 1.03 [facility] Urobilinogen, UA 0.2 0.2 - 12 mg/dL [facility] Urinalysis macro (dipstick) panel (U)on 04-21-2024 Bilirubin, UA Negative Negative - 4(70) +++ mg/dL [facility] Blood, UA Negative Negative - 50 Moncho/mcL [facility] Clarity, UA Clear [facility] Color, UA Yellow [facility] Glucose, UA Negative Negative - 1999(110) ++++ mg/dL [facility] Interpretation and review of laboratory results Abnormal [facility] Ketones, UA Negative Negative - 160(16) ++++ mg/dL [facility] Leukocytes, UA Negative Negative - 500+++ Bhavik/mcL [facility] Nitrite, UA Negative Negative - Positive [facility] pH, UA 7 5 - 9 [facility] Protein, UA Trace Negative - 1999(20) ++++ mg/dL [facility] Spec Grav, UA 1.02 1 - 1.03 [facility] Urobilinogen, UA 0.2 0.2 - 12 mg/dL [facility] BhCG Quanton 03-15-2024 [place] [address] m[IU]/mL High 1-3 F [facility] Comment on above: Result Comment: 'F N ON < 1 - 3' ' 0.2 - 1 WEEK = 5 TO 50' ' 1 - 2 WEEKS = 50 - 500' ' 2 - 3 WEEKS = 100 - 5000' ' 3 - 4 WEEKS = 500 - 54917' ' 4 - 5 WEEKS = 1000 - 53383' ' 5 - 6 WEEKS = 35993 - 996980' ' 6 - 8 WEEKS = 60445 - 023070' ' 8 - 12 WEEKS = 60599 - 370568' Performed By: #### 2 [id number] #### [facility] [address] [place] [address] CHEMISTRYOrdered By: SYSTEM SYSTEM on 03-15-2024 [place] [address] m[IU]/mL High 1 - 3 mIU/mL [facility] Comment on above: Result Comment: 'F N ON < 1 - 3' ' 0.2 - 1 WEEK = 5 TO 50' ' 1 - 2 WEEKS = 50 - 500' ' 2 - 3 WEEKS = 100 - 5000' ' 3 - 4 WEEKS = 500 - 33845' ' 4 - 5 WEEKS = 1000 - 87280' ' 5 - 6 WEEKS = 78005 - 165864' ' 6 - 8 WEEKS = 20803 - 209059' ' 8 - 12 WEEKS = 86632 - 154674' ED Clinical Summaryon 2023 ED Clinical Summary ED Clinical Summary [address] [address] ED Clinical Summary Person Information Name: RACQUEL YADAV [facility] Age: 28 Years : 1995 Sex: Female Language: Trinidadian PCP: Dave Red MD Marital Status: Phone: [...] 03/15/2024 08:09:45 03/15/2024 08:09:45 03/15/2024 08:09:45 AD[address]ESS: [address] [facility] [id number] PHYS DOC NOTES: Addendum by Augie Boyd DO on March 15, 2024 08:03:55 EST MEDICAL INFORMATION: Prescriptions Given: Medications to Continue with No Changes Other Medications letrozole (letrozole 2.5 mg Tab) medroxyPROGESTERone (medroxyPROGESTERone 10 mg Tab) PATIENT EDUCATION INFORMATION: Instructions: Follow up: With: Address: When: Nakul VAUGHAN [facility], [address] [place] [address] Business (1) In 3 days 03/18/2024 With: Address: When: Dave Red [address] [place] [address] Business (1) In 3 days DIAGNOSIS: Threatened ; Vaginal bleeding in Normal [facility] ED Note-Physicianon 03-15-20 ED Note-Physician ED [...] and Complexity of Problems Differential Diagnosis: [] [facility] Data External documents reviewed: [] My [...] 09/20/2018 Employment/School Employed, Work/School description: Works at [employer]. Previous employment/school: Student. Activity level: Occasional physical [...] of lifetime (more content not included)... Normal [facility] Comment on above: Result Comment: Elec [...] and Complexity of Problems Differential Diagnosis: [] [facility] Data External documents reviewed: [] My [...] 09/20/2018 Employment/School Employed, Work/School description: Works at [employer]. Previous employment/school: Student. Activity level: Occasional physical [...] of lifetime (more content not included)... Normal [facility] Comment on above: Result Comment: Elec tronically Signed By: Poncho Sanchez DO\Date and Time Signed: 03/15/24 06:45 EST ED Patient Education Noteon 03-15-2024 ED Patient Education Note ED Patient Education Note Normal [facility] ED Patient Summaryon 024 ED Patient Summary ED Patient Summary [address] [address] Patient Discharge Instructions Person Information Name: RACQUEL YADAV Age: 28 Years Arrival Date: 03/15/2024 03:59:56 Discharge Diagnosis: Threatened ; Vaginal bleeding in Primary Care Physician: Teofilo BRANDT, Dave Rosen Provider Information Primary Provider: Poncho Sanchez DO Advanced Classification Clerk:None The exam and treatment you received in the Emergency Department were for an urgent problem and are not intended as complete care. It is important that you follow up with a doctor, nurse practitioner, or physician???s accounts payable assistant for ongoing care. If your symptoms become worse or you do not improve as expected and you are unable to reach your usual health care provider, you should return to the Emergency Department. We are available 24 hours a day. RACQUEL YADAV has been given the following list of patient education materials, prescriptions and follow-up instructions: Follow-up Instructions: With: Address: When: [facility], [address] [place] [address] [place] [id number] Business (1) In 3 days 03/18/2024 With: Address: When: Dave Red [address] [place], [place] [id number] [facility] (1) In 3 days In the event that this physician does not participate in your insurance network, please consult with your insurance company to find a nearby participating provider. Patient Education Materials: A MESSAGE TO ALL PATIENTS REGARDING OPIOIDS PRESCRIPTION OPIOIDS: WHAT YOU NEED TO KNOW Prescription opioids can be used to help relieve riyamakv-vs-nggpoj pain and are often prescribed following a [...] about t (more content not included)... Normal [facility] Extra Blueon 03-15-2024 Tube Collected Plasma Yes Invalid Interpretation Code [facility] Comment on above: Performed By: #### 1 [id number] #### [facility] [address] [place] [address] Extra Scot 03-15-2024 WB Tube Collected Yes Invalid Interpretation Code [facility] Comment on above: Performed By: #### 1 [id number] #### [facility] [address] [place] [address] No Panel InformationOrdered By: Stephanie Acevedo on 03-15-2024 WP No Trichomonas vaginalis present No clue cells present No yeast seen [facility] UA with Cult Rflxon 03-15-20 24 Bilirubin Ql (U) Negative Normal Negative [facility] Comment on above: Performed By: #### 4 [id number] #### [facility] [address] [place] [address] Clarity (U) Clear Normal Clear [facility] Comment on above: Performed By: #### 4 [id number] #### [facility] [address] [place] [address] Color (U) Light-Yellow Normal Yellow [facility] Comment on above: Result Comment: Micr oscopic readings are only performed on those samples that meet specific criteria set forth by [facility]. Performed By: #### 4 [id number] #### [facility] [address] [place] [address] Glucose Ql (U) Negative Normal Negative [facility] Comment on above: Performed By: #### 4 [id number] #### [facility] [address] [place] [address] Hemoglobin Auto test strip (U) [Mass/Vol] Trace Abnormal Negative [facility] Comment on above: Performed By: #### 4 [id number] #### [facility] [address] [place] [address] Ketones Auto test strip Ql (U) 1+ mg/dL Abnormal Negative [facility] Comment on above: Performed By: #### 4 [id number] #### [facility] [address] [place] [address] Leukocyte esterase Auto test strip Ql (U) Negative Normal Negative [facility] Comment on above: Performed By: #### 4 [id number] #### [facility] [address] [place] [address] Nitrite Auto test strip Ql (U) Negative Normal Negative [facility] Comment on above: Performed By: #### 4 [id number] #### [facility] [address] [place] [address] pH (U) 5.5 [pH] Invalid Interpretation Code 5.0-9.0 [facility] Comment on above: Performed By: #### 4 [id number] #### [facility] [address] [place] [address] Protein Ql (U) Negative Normal Negative [facility] Comment on above: Performed By: #### 4 [id number] #### [facility] [address] [place] [address] Specific gravity (U) [Rel density] 1.015 Invalid Interpretation Code 1.005-1.030 [facility] Comment on above: Performed By: #### 4 [id number] #### [facility] [address] [place] [address] Urobilinogen (U) [Mass/Vol] Negative Normal Negative [facility] Comment on above: Performed By: #### 4 [id number] #### [facility] [address] [place] [address] Type of Urine collection method Clean Catch Normal [facility] Comment on above: Performed By: #### 4 [id number] #### [facility] [address] [place] [address] URINALYSISOrdered By: SYSTEM SYSTEM on 03-15-2024 Bilirubin [...] that meet specific criteria set forth by [facility]. Glucose Ql (U) Negative Normal [...] Desc Clean Catch (03/15/24 4:39 AM) Normal [facility] UA Auto SS US Limitedon 03-15 US [...] (bpm) 135 Cervical Length (cm) 3.5 Normal [facility] URETHRITIS/DISCHARGE PLUS VA GINITIS (HTRX)on 03-05-2024 ATOPOBIUM VAGINAE 0 [facility] ATOPOBIUM VAGINAE Not detected [facility],3 (BACTERIAL VAGINOSIS ASSOCIATED BACTERIA 2, 3); MOBILUNCUS SPP 0 [facility] BVAB 2,3 (BACTERIAL VAGINOSIS ASSOCIATED BACTERIA 2, 3); MOBILUNCUS SPP Not detected [facility] [place] ALBICANS, PARAPSILOSIS, TROPICALIS 0 [facility] [place] ALBICANS, PARAPSILOSIS, TROPICALIS Not detected [facility] [place] GLABRATA 0 [facility] [place] GLABRATA Not detected [facility] [place] KRUSEI 0 [facility] [place] KRUSEI Not detected [facility] CHLAMYDIA TRACHOMATIS 0 [facility] CHLAMYDIA TRACHOMATIS Not detected [facility] GARDNERELLA VAGINALIS 0 [facility] GARDNERELLA VAGINALIS Not detected [facility] MEGASPHAERA (TYPES 1, 2) 0 [facility] MEGASPHAERA (TYPES 1, 2) Not detected [facility] MYCOPLASMA GENITALIUM 0 [facility] MYCOPLASMA GENITALIUM Not detected [facility] NEISSERIA GONORRHOEAE 0 [facility] NEISSERIA GONORRHOEAE Not detected [facility] TRICHOMONAS VAGINALIS 0 [facility] TRICHOMONAS VAGINALIS Not detected [facility] Urinalysis macro (dipstick) panel (U)on 03-03-2024 Bilirubin, UA Negative Negative - 4(70) +++ mg/dL [facility] Blood, UA Positive Negative - 50 Moncho/mcL [facility] Comment on above: trace Clarity, UA Clear [facility] Color, UA Yellow [facility] Glucose, UA Positive Negative - 1999(110) ++++ mg/dL [facility] Comment on above: 250 mg Interpretation and review of laboratory results Abnormal [facility] Ketones, UA Negative Negative - 160(16) ++++ mg/dL [facility] Leukocytes, UA Negative Negative - 500+++ Bhavik/mcL [facility] Nitrite, UA Negative Negative - Positive [facility] pH, UA 5.5 5 - 9 [facility] Protein, UA Negative Negative - 1999(20) ++++ mg/dL [facility] Spec Grav, UA 1.015 1 - 1.03 [facility] Urobilinogen, UA 0.2 0.2 - 12 mg/dL [facility] ALL CBC WITH AUTO DIFFon BASOPHILS ABSOLUTE AUTO 0.1 [facility] Basophils/100 WBC (Bld) 0.4 % 0.2 - 2.0 % [facility] Eosinophils/100 WBC (Bld) 1.5 % 0.9 - 7.0 % [facility] Erythrocyte distribution width (RBC) [Ratio] 12.4 % 11.0 - 15.0 % [facility] Hematocrit (Bld) [Volume fraction] 38.9 % 36.0 - 48.0 % [facility] Hemoglobin (Bld) [Mass/Vol] 13.2 g/dL 12.0 - 16.0 g/dL [facility] IMMATURE GRANULOCYTES ABS AUTO 0.05 High [facility] Immature granulocytes/100 WBC (Bld) 0.4 % 0.0 - 0.5 % [facility] Interpretation and review of laboratory results Abnormal [facility] LYMPHOCYTES ABSOLUTE AUTO 3.4 [facility] Lymphocytes/100 WBC (Bld) 23.8 % 20.5 - 60.0 % [facility] MCH (RBC) [Entitic mass] 29.9 pg 26.7 - 34.0 pg [facility] MCHC (RBC) [Mass/Vol] 33.9 g/dL 29.9 - 35.2 g/dL [facility] MCV (RBC) [Entitic vol] 88.2 fL 81.0 - 99.0 fL [facility] MONOCYTES ABSOLUTE AUTO 0.8 [facility] Monocytes/100 WBC (Bld) 5.7 % 1.7 - 12.0 % [facility] NEUTROPHILS ABSOLUTE AUTO 9.7 High [facility] Neutrophils/100 WBC (Bld) 68.2 % 43.0 - 75.0 % [facility] Platelet mean volume (Bld) [Entitic vol] 9.4 fL Low 9.5 - 13.5 fL [facility] EO # 0.[address] [facility] PLT [address] [facility] RBC 4.[address] [facility] WBC 14.1 High [facility] BOX TESTon 02-12-2024 BOX TEST SENT OUT Y [facility] BOX1 UNITY [facility] BOX2 02/12/24 [facility] test[facility] Ql (U)o n 01-31-2024 Interpretation and review of laboratory results Abnormal [facility] Preg Test, Ur Positive [facility] Urinalysis macro (dipstick) panel (U)on 01-31-2024 Bilirubin, UA Negative Negative - 4(70) +++ mg/dL [facility] Blood, UA Negative Negative - 50 Moncho/mcL [facility] Clarity, UA Clear [facility] Color, UA Yellow [facility] Glucose, UA Negative Negative - 1999(110) ++++ mg/dL [facility] Interpretation and review of laboratory results Normal [facility] Ketones, UA Negative Negative - 160(16) ++++ mg/dL [facility] Leukocytes, UA Negative Negative - 500+++ Bhavik/mcL [facility] Nitrite, UA Negative Negative - Positive [facility] pH, UA 6.0 5 - 9 [facility] Protein, UA Negative Negative - 2000(20) ++++ mg/dL [facility] Spec Grav, UA 1.020 1 - 1.03 [facility] Urobilinogen, UA 1.0 0.2 - 12 mg/dL [facility] PREG QUANT HCGon 024 HCG QUANTITATIVE 250 mIU/mL [facility] Comment on above: 5-50 0.2-1 WEEK 50-500 1-2 WEEKS 100-5,000 2-3 WEEKS 500-10,000 3-4 WEEKS 1,000-50,000 4-5 WEEKS 10,000-100,000 5-6 WEEKS 15,000-200,000 6-8 WEEKS 10,000-100,000 2-3 MONTHS [facility] TBH PREG QUANT HCGon 024 HCG QUANTITATIVE 120 mIU/mL [facility] Comment on above: 5-50 0.2-1 WEEK 50-500 1-2 WEEKS 100-5,000 2-3 WEEKS 500-10,000 3-4 WEEKS 1,000-50,000 4-5 WEEKS 10,000-100,000 5-6 WEEKS 15,000-200,000 6-8 WEEKS 10,000-100,000 2-3 MONTHS [facility] ALL PROGESTERONEon 4 PROGESTERONE 9.9 ng/mL . [facility] Comment on above: Follicular phase 0.1 - 0.9 Luteal phase 1.8 - 23.9 Ovulation phase 0.1 - 12.0 First trimester 11.0 - 44.3 Second trimester 25.4 - 83.3 Third trimester 58.7 - 214.0 Postmenopausal 0.0 - 0.1 Performed at: [facility] [place] [address] Foam Charger: Jun Mike PhD, Phone: [phone] [facility] Ambulatory Visit Summaryon 0 - Ambulatory Visit Summary Ambulatory Visit Summary RACQUEL [...] BRANDT, TREVOR Jimenez When: Where: [address] [place] [address]- Medications What When Instructions Unchanged [...] water. ? Keep raw meats separate from umetm-qm-otg foods, such as fruits and vegetables. ? turkey egg gatherer, meat, poultry, and eggs to the (more content not included)... Normal [facility] Family Medicine Office/Clini c Noteon 11-15-2023 [...] with voice recognition software. Occasional wrong-word or ?fhshv-i-mbuf? substitutions may have occurred due to the [...] of the extremity. She may also use elwm-xjl-vrofuww analgesics such as ibuprofen or Tylenol per package instructions for comfort. Declines need for work note today. 1. Hand pain, right (M79.641: Pain in right hand) Hand x-ray was negative. Patient encouraged to use rest, ice, compression and elevation for symptom management. As above can use oyxz-qgi-hvabmyr analgesics such as Tylenol or ibuprofen per [...] When Contact Information Teofilo BRANDT, Dave Rosen, [facility] [place] [address]- Additional Instructions: Patient Education Healthy Eating Exercising to Lose Weight BMI for Adults How to Use Cold Therapy, Iqcu-pe-Rpta Hand Pain Problem List/Past Medical History Ongoing [...] 09/20/2018 Employment/School Employed, Work/School description: Works at [employer] Previous employment/school: Student. Activity level: Occasional physical work. Highest education level: Some college. Operates hazardous equipment: No., 09/20/2018 Exercise Exercise duration: 4. Exercise frequency: 5-6 times/week. Self assessment: Fair condition. Exercise type: Walking., 05/ (more content not included)... Normal [facility] Comment on above: Result Comment: Elec [...] mGy = . DAP = . Normal [facility] C Urineon 07-25-2023 Bacteria identified Cx Nom (U) Microbiology PROCEDURE: Urine Culture [R1] SOURCE: U CleanCatch BODY SITE: COLLECTED DATE/TIME: 07/23/2023 10:43 EDT RECEIVED DATE/TIME: 07/23/2023 12:09 EDT START DATE/TIME: 07/23/2023 12:09 EDT FREE TEXT SOURCE: Les AVALOS, Cristi Palma. Les AVALOS, Cristi Palma. FINAL REPORTS Final Report [] Verified Date/Time: 07/25/2023 07:26 EDT 5,000 cfu/ml Mixed skin contaminants Performing Locations R1: This test was performed at: [facility], [address] [place] [address], [id number] Comment on above: Performed By: #### 2 [id number] #### [facility] [address] [place] [address] Ambulatory Visit Summaryon 0 07-23-2023 Ambulatory Visit [...] Schedule the Following Appointments Follow Up with Dave Red MD, [facility] When: Where: [address] [place] [address]- Medications What When Instructions Unchanged letrozole (letrozole [...] keep your urine pale yellow. ? Take vhza-tlu-heccinc or prescription medicines. ? Eat foods that are high in fiber, such as beans, whole grains, and fresh fruits and vegetables. ? Limit foods that are high in fat and processed sugars, such as fried or sweet foods. General instructions ? Take fxow-jln-pnvqaix and prescription medicines only as told by [...] muscles that help control urination. ? Take kcfr-ulo-gurehnu and prescripti (more content not included)... Normal [facility] Family Medicine Office/Clini c Noteon 07-23-2023 [...] with voice recognition software. Occasional wrong-word or ?nffso-v-kdrl? substitutions may have occurred due to the [...] with this as she should contact her ORDER PROCESSING MANAGER Dr. Vaughan for further evaluation in which [...] of Est. Patient Straight Fwd 10-19 Min 80184 2. BMI 32.0-32.9,adult (Z68.32: Body mass index [BMI] 32.0-32.9, adult) The standard range for ages 18 and older is >=18.5 and < 25 kg/m2. Your BMI today was above this range, this falls in the overweight to obese category and there are medical benefits to weight loss. We can offer counselling, referral, a (more content not included)... Normal [facility] Comment on above: Result Comment: Elec [...] numbers. This can be done either in [place] ([place] or metric measurements. Note that charts and online BMI calculators are available to help you find your BMI quickly and easily without having to do these calculations yourself. To calculate your BMI in [place] (U.[place] measurements: 1. Measure your weight in [...] www.heart.org ? National Heart, Lung, and Blood Check: www.nhlbi.nih.gov Summary ? Body mass index (BMI) is a number that is calculated from a person's weight and height. ? BMI may help estimate how much of a person's weight is composed of fat. BMI can help identify those who may be at higher risk for certain medical problems. ? BMI can be measured using Trinidadian measurements or metric measurements. ? BMI charts are used to identify whether you are underweight, normal weight, overweight, or obese. This information is not intended to replace advice given to you by your health care provider. Make sure you discuss any questions you have with your health care provider. Document Revised: 01/14/2020 Document Reviewed: 11/21/2019 [employer] Patient Education ? 2022 [employer]. Urology Urinary Frequency, Adult Urinary frequency means [...] at home: (more content not included)... Normal [facility] Provider Letteron 07-23-2023 Provider Letter July 23, 2023 RACQUEL YADAV [address] [place] [address] : 1995 To Whom It May Concern, Please excuse above patient from work. Date of Illness: 07/23/2023 May Return to Work On:07/24/2023 Sincerely, [facility] [address] [place] [address], [place] [address] Normal [facility] Cytology Cervical or vaginal smear or scraping studyon 04-24-2023 [facility] ORDER PROCESSING MANAGER - Office Visiton ORDER PROCESSING MANAGER - Office Visit Diagnoses/Problems Assessed History of [...] fert test Tobacco Use Screening; Status:Complete; Done: [id number] Patient Discussion/Summary 24 year old with oligomenorrhea, [...] Blood type [ ] Genetic Screen with [facility] - will consider [x ] Take vitamins, vitamin D [x ] Return to see me after workup complete to discuss management plan [x ] Education: New infertility packet to be mailed to patient [x ] Engaged MD albin Johnson MD Reproductive Endocrinology and Infertility [facility] [phone] [place] [phone] [place] Provider Impressions 24 year old with [...] Blood type [ ] Genetic Screen with [facility] - will consider [x ] Take vitamins, vitamin D [x ] Return to see me after workup complete to discuss management plan [x ] Education: New infertility packet to be mailed to patient [x ] Engaged MD albin Johnson MD Reproductive Endocrinology and [facility] [phone] [place] [phone] [place] Appointment Duration:. 45 minutes; greater than half [...] trying for 4 years. History of Present [id number]/09/2020 11:15AM RACQUEL VAZQUEZ , 24 year is contacted for an (audio-visual, or audio only) Telehealth visit. Today's visit was provided through telemedicine conferencing: Using [employer] platform. Consent: The concept of telemedicine? 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 Prior established pregnancies: No Toxic habits: Occasional [...] No Reported Medications Vitals Vital Signs Recorded: [id number] 11:02AM Height5 ft 5 in Yolqym038 lb BMI Wnaystrweo64.46 BSA Calculated1.82 Tobacco Useb) No Fall Screeninga) No falls within the last year [id number] Gravida0 Para0 Pain Scale0 Physical Exam This is a telehealth appointment Signatures Electronically signed by : Rayshawn Johnson MD; Jun 09 2020 11:52AM EST (Author) Normal [facility] HUMERUS LEFTon 12-01-2016 HUM[facility]US LEFT [facility] [id number] [place] [address] ========Patient Name: RACQUEL VAZQUEZ : 1995Sex: FAge: Race: WhiteMRN: [id number]. Location: 84Patient Status: Date: 12/01/2016 4:25:00 PMCompleted Date: 12/01/2016 04:28 PMRequesting Provider: CARI GOOD Attending Provider: Report Copy To: Signs & Symptoms: S42.352D Displ commnt fx shaft of humer, l arm, 7thD [id number]: AthenaComments: , , Views (X-RAY, HUMERUS): AP, Lateral , Weight Bearing?: Y , With or Without Brace/Cast/Collar: Without , With Magnification Marker?: N , , , Ordering Provider - CARI GOOD MD , Rendering Provider - CARI GOOD MD , Exam: HUMERUS LEFTAccession #: [id number] HUMERUS LEFT 12/01/2016 4:28 PM EDT SIGNS [...] fracture with sideplate and screws. Electronically signed by:Chris Campos M.D.. Transcribed by: [email or web address], User Resident: Electronically Signed by: CHRIS CAMPOS @ 12/01/2016 04:35 PM Normal [facility] Comment on above: Order Comment: , , V iews (X-RAY, HUMERUS): AP, Lateral , Weight Bearing?: Y , With or Without Brace/Cast/Collar: Without , With Magnification Marker?: N , , , Ordering Provider - CARI GOOD MD , Rendering Provider - CARI GOOD MD , Vital Signs Date Time Vital Sign Value Performing Clinician Facility 11-19-2024 10:27-0400 Body height 165.1 cm Tamara Gould PA Work Phone: [facility] 11-19-2024 10:27-0400 Body mass index (BMI) [Ratio] 31.33 kg/m2 Tamara Gould PA Work Phone: [facility] 11-19-2024 10:27-0400 Body weight 85.39 kg Tamara Gould PA Work Phone: [facility] 11-19-2024 10:27-0400 Diastolic blood pressure 66 mm[Hg] Tamara Bushey PA Work Phone: [facility] 11-19-2024 10:27-0400 Systolic blood pressure 102 mm[Hg] Tamara Gould PA Work Phone: [facility] 10-16-2024 15:14-0400 Body mass index (BMI) [Ratio] 33.61 kg/m2 Tamara Gould PA Work Phone: [facility] 10-16-2024 15:14-0400 Body weight 91.63 kg Tamara URIOSTEGUI Work Phone: [facility] 10-16-2024 15:14-0400 Diastolic blood pressure 70 mm[Hg] Tamara URIOSTEGUI Work Phone: [facility] 10-16-2024 15:14-0400 Systolic blood pressure 110 mm[Hg] Tamara URIOSTEGUI Work Phone: [facility] 08-21-2024 11:33-0400 Body mass index (BMI) [Ratio] 36.28 kg/m2 Nakul Clement DO Work Phone: [facility] 08-21-2024 11:33-0400 Body weight 98.88 kg Nakul Clement DO Work Phone: [facility] 08-21-2024 11:33-0400 Diastolic blood pressure 74 mm[Hg] Nakul Clement DO Work Phone: [facility] 08-21-2024 11:33-0400 Systolic blood pressure 108 mm[Hg] Nakul Clement DO Work Phone: [facility] 08-13-2024 14:44-0400 Body mass index (BMI) [Ratio] 36.44 kg/m2 Nakul Clement DO Work Phone: [facility] 08-13-2024 14:44-0400 Body weight 99.34 kg Nakul Clement DO Work Phone: [facility] 08-13-2024 14:44-0400 Diastolic blood pressure 70 mm[Hg] Nakul Clement DO Work Phone: [facility] 08-13-2024 14:44-0400 Systolic blood pressure 110 mm[Hg] Nakul Clement DO Work Phone: [facility] 07-30-2024 13:39-0400 Body mass index (BMI) [Ratio] 35.58 kg/m2 Nakul Clement DO Work Phone: [facility] 07-30-2024 13:39-0400 Body weight 96.98 kg Nakul Clement DO Work Phone: [facility] 07-30-2024 13:39-0400 Diastolic blood pressure 70 mm[Hg] Nakul Clement DO Work Phone: [facility] 07-30-2024 13:39-0400 Systolic blood pressure 102 mm[Hg] Nakul Clement DO Work Phone: [facility] 07-16-2024 10:51-0400 Body mass index (BMI) [Ratio] 34.61 kg/m2 Tamara Lincoln PA Work Phone: [facility] 07-16-2024 10:51-0400 Body weight 94.35 kg Tamara Lincoln PA Work Phone: [facility] 07-16-2024 10:51-0400 Diastolic blood pressure 72 mm[Hg] Tamara Luis Fernando PA Work Phone: [facility] 07-16-2024 10:51-0400 Systolic blood pressure 112 mm[Hg] Tamara Luis Fernando PA Work Phone: [facility] 07-01-2024 10:18-0500 Body mass index (BMI) [Ratio] 34.28 kg/m2 Tamara Luis Fernando PA Work Phone: [facility] 07-01-2024 10:18-0500 Body weight 93.44 kg Tamara Lincoln PA Work Phone: [facility] 07-01-2024 10:18-0500 Diastolic blood pressure 60 mm[Hg] Tamara Luis Fernando PA Work Phone: [facility] 07-01-2024 10:18-0500 Systolic blood pressure 110 mm[Hg] Tamara Lincoln PA Work Phone: [facility] 06-17-2024 09:29-0500 Body mass index (BMI) [Ratio] 33.61 kg/m2 Nakul Clement DO Work Phone: [facility] 06-17-2024 09:29-0500 Body weight 91.63 kg Nakul Clement DO Work Phone: [facility] 06-17-2024 09:29-0500 Diastolic blood pressure 72 mm[Hg] Nakul Clement DO Work Phone: [facility] 06-17-2024 09:29-0500 Systolic blood pressure 118 mm[Hg] Nakul Clement DO Work Phone: [facility] 05-20-2024 09:21-0500 Body mass index (BMI) [Ratio] 32.95 kg/m2 Nakul Clement DO Work Phone: [facility] 05-20-2024 09:21-0500 Body weight 89.81 kg Nakul Clement DO Work Phone: [facility] 05-20-2024 09:21-0500 Diastolic blood pressure 70 mm[Hg] Nakul Clement DO Work Phone: [facility] 05-20-2024 09:21-0500 Systolic blood pressure 120 mm[Hg] Nakul Clement DO Work Phone: [facility] 04-21-2024 09:47-0500 Body mass index (BMI) [Ratio] 32.45 kg/m2 Tamara Gould PA Work Phone: [facility] 04-21-2024 09:47-0500 Body weight 88.45 kg Tamara Luis Fernando PA Work Phone: [facility] 04-21-2024 09:47-0500 Diastolic blood pressure 70 mm[Hg] Tamara Luis Fernando PA Work Phone: [facility] 04-21-2024 09:47-0500 Systolic blood pressure 120 mm[Hg] Tamara Lincoln PA Work Phone: [facility] 03-19-2024 13:34-0500 Body mass index (BMI) [Ratio] 31.18 kg/m2 Nakul Clement DO Work Phone: [facility] 03-19-2024 13:34-0500 Body weight 85 kg Nakul Clement DO Work Phone: [facility] 03-19-2024 13:34-0500 Diastolic blood pressure 70 mm[Hg] Nakul Clement DO Work Phone: [facility] 03-19-2024 13:34-0500 Systolic blood pressure 114 mm[Hg] Nakul Clement DO Work Phone: [facility] 03-15-2024 04:04-0500 Body temperature 98.42 [degF] Kaylinn Dokken [facility] 03-15-2024 04:04-0500 Diastolic blood pressure 95 mm[Hg] Kaylinn Dokken [facility] 03-15-2024 04:04-0500 Heart rate 94 /min Kaylinn Dok[facility] 03-15-2024 04:04-0500 Respiratory rate 16 /min Kaylinn Dok[facility] 03-15-2024 04:04-0500 SaO2% (BldA) [Mass fraction] 97 % Kaylinn Dokken [facility] 03-15-2024 04:04-0500 Systolic blood pressure 123 mm[Hg] Kaylinn Dokken [facility] 03-03-2024 15:08-0400 Body mass index (BMI) [Ratio] 31.78 kg/m2 Nakul Clement DO Work Phone: [facility] 03-03-2024 15:08-0400 Body weight 86.64 kg Nakul Clement DO Work Phone: [facility] 03-03-2024 15:08-0400 Diastolic blood pressure 72 mm[Hg] Naukl Clement DO Work Phone: [facility] 03-03-2024 15:08-0400 Systolic blood pressure 118 mm[Hg] Nakul Clement DO Work Phone: [facility] 01-31-2024 16:20-0400 Body mass index (BMI) [Ratio] 31.25 kg/m2 [facility] 01-31-2024 16:20-0400 Body weight 85.19 kg [facility] Nurse [facility] 11-15-2023 12:56-0400 Blood Pressure Location Barby Juradosuzannearminda [facility] 11-15-2023 12:56-0400 Body temperature 98.06 [degF] Barby Fabianer [facility] 11-15-2023 12:56-0400 Diastolic blood pressure 82 mm[Hg] Barby Fabianer [facility] 11-15-2023 12:56-0400 Heart rate 82 /min Barby Fabianer [facility] 11-15-2023 12:56-0400 Respiratory rate 18 /min Barby Fabianer [facility] 11-15-2023 12:56-0400 SaO2% (BldA) [Mass fraction] 99 % Barby Juradosuzanneer [facility] 11-15-2023 12:56-0400 Systolic blood pressure 120 mm[Hg] Barby Fabianer [facility] 07-23-2023 10:31-0400 Blood Pressure Location Cristi Saldana [facility] 07-23-2023 10:31-0400 Body temperature 98.24 [degF] Cristi Saldana [facility] 07-23-2023 10:31-0400 Diastolic blood pressure 74 mm[Hg] Cristi Saldana [facility] 07-23-2023 10:31-0400 Heart rate 81 /min Cristi Saldana [facility] 07-23-2023 10:31-0400 SaO2% (BldA) [Mass fraction] 97 % Cristi Saldana [facility] 07-23-2023 10:31-0400 Systolic blood pressure 118 mm[Hg] Cristi Saldana [facility] 07-29-2021 18:50-0400 Body temperature 96.98 [degF] Mark Moffett [facility] 07-29-2021 18:50-0400 Diastolic blood pressure 58 mm[Hg] Mark [facility]off[facility] 07-29-2021 18:50-0400 Heart rate 70 /min [facility] 07-29-2021 18:50-0400 Respiratory rate 12 /min [facility] 07-29-2021 18:50-0400 SaO2% (BldA) [Mass fraction] 99 % [facility] 07-29-2021 18:50-0400 Systolic blood [...] Date Encounter Type Care Provider Facility Start: 11-19-2024 End: 11-19-2024 Bamboo flowsheet Tamara URIOSTEGUI Work Phone: [facility] Start: 11-19-2024 End: 11-19-2024 Bamboo flowsheet Tamara URIOSTEGUI Work Phone: [facility] Start: 11-19-2024 End: 11-19-2024 Patient encounter procedure Tamara URIOSTEGUI Work Phone: [facility] Start: 11-19-2024 End: 11-19-2024 Periodic preventive med est patient 18-39 yrs Tamara URIOSTEGUI Work Phone: [facility] Comment on above: Encounter for weight management; Well woman exam with routine gynecological exam Start: 10-22-2024 End: 10-22-2024 Bamboo flowsheet Anabel Cooper NP Work Phone: [facility] Start: 10-22-2024 End: 10-22-2024 Bamboo flowsheet Anabel Cooper NP Work Phone: [facility] Start: 10-16-2024 End: 10-16-2024 care visit Tamara URIOSTEGUI Work Phone: [facility] Comment on above: 6 weeks f ollow-up ([facility]); Spontaneous vaginal delivery ([facility]); Screen for STD (sexually transmitted disease); Pelvic pain in female Start: 09-04-2024 End: 09-04-2024 Clinisync Result Encounter Nakul Clement DO Work Phone: [facility] Unsolicited Start: 09-04-2024 End: 09-04-2024 Clinisync Result Encounter Nakul Clement DO Work Phone: [facility] Unsolic[facility] Start: 09-02-2024 End: 09-03-2024 Clinisync Result Encounter Nakul Clement DO Work Phone: [facility] Unsolicited Start: 09-02-2024 End: 09-03-2024 Clinisync Result Encounter Nakul Clement DO Work Phone: [facility] Unsolicited Start: 08-28-2024 End: 08-28-2024 Bamboo flowsheet Nakul Clement DO Work Phone: [facility] Start: 08-28-2024 End: 08-28-2024 Bamboo flowsheet Nakul Clement DO Work Phone: [facility] Start: 08-28-2024 End: 08-28-2024 flow sheet Nakul Clement DO Work Phone: [facility] Comment on above: Third trimester preg eric; 38 weeks gestation of Start: 08-21-2024 End: 08-21-2024 Bamboo flowsheet Nakul Clement DO Work Phone: [facility] Start: 08-21-2024 End: 08-21-2024 Bamboo flowsheet Nakul Clement DO Work Phone: [facility] Start: 08-21-2024 End: 08-21-2024 flow sheet Nakul Clement DO Work Phone: [facility] Comment on above: Third trimester preg eric; 37 weeks gestation of Start: 08-13-2024 End: 08-13-2024 Office outpatient visit 15 minutes Nakul Clement DO Work Phone: [facility] Comment on above: 36 weeks gestation o f ; Third trimester Start: 08-13-2024 End: 08-13-2024 Bamboo flowsheet Nakul Clement DO Work Phone: [facility] Start: 08-13-2024 End: 08-18-2024 Bamboo flowsheet Nakul Clement DO Work Phone: [facility] Start: 08-13-2024 End: 08-18-2024 Clinisync Result Encounter Nakul Clement DO Work Phone: [facility] External Department Unsolicited Start: 07-30-2024 End: 07-30-2024 Bamboo flowsheet Nakul Clement DO Work Phone: [facility] Start: 07-30-2024 End: 07-30-2024 Bamboo flowsheet Nakul Clement DO Work Phone: [facility] Start: 07-30-2024 End: 07-30-2024 Office outpatient visit 15 minutes Nakul Clemnet DO Work Phone: [facility] Comment [...] 07-01-2024 Office outpatient visit 15 minutes Tamara Gould PA Work Phone: [facility] Comment on above: size inconsist ent with dates (Primary Dx); 30 weeks gestation of ; Third trimester Start: 06-30-2024 End: 06-30-2024 Clinisync Result Encounter Nakul Clement DO Work Phone: [facility]solicited Start: 06-30-2024 End: 06-30-2024 Clinisync Result Encounter Nakul Clement DO Work Phone: [facility] Start: 06-17-2024 End: 06-17-2024 Bamboo flowsheet Nakul Clement DO Work Phone: [facility] Start: 06-17-2024 End: 06-17-2024 Bamboo flowsheet Nakul Clement DO Work Phone: [facility] Start: 06-17-2024 End: 06-17-2024 Office outpatient visit 15 minutes Nakul Clement DO Work Phone: [facility] Comment on above: Third trimester preg eric; 28 weeks gestation of Start: 05-31-2024 End: 06-02-2024 Clinisync Result Encounter Nakul Clement DO Work Phone: [facility]solic[facility] Start: 05-31-2024 End: 06-02-2024 Clinisync Result Encounter Nakul Clement DO Work Phone: [facility]solic[facility] Start: 05-20-2024 End: 05-20-2024 Bamboo flowsheet Nakul [...] Office outpatient visit 15 minutes Nakul Clement [employer] Work Phone: [facility] Comment on above: Abdominal cramping a ffecting Start: 03-15-2024 End: 03-15-2024 Emergency department patient visit Poncho Norris Laura [facility] Start: 03-03-2024 End: 03-03-2024 flow sheet [...] 02-27-2024 End: 02-27-2024 ambulatory GIO GRAF Facility:[facility] Start: 02-27-2024 End: 02-27-2024 Patient encounter procedure GIO GRAF [facility] Start: 02-12-2024 End: 02-13-2024 [...] Start: 11-15-2023 End: 11-15-2023 ambulatory Barby Pastrana Facility[facility] Start: 11-15-2023 End: 11-15-2023 Patient encounter procedure Barby Hernandez Victoriano [facility] Start: 07-23-2023 End: 07-23-2023 Lab Drop off Cristi Saldana [facility] Start: 07-23-2023 End: 07-23-2023 ambulatory Cristi LouieJonathan Saldana Facility:[facility] Start: 07-23-2023 End: 07-23-2023 Patient encounter procedure Cristi Sanpsey [facility] Start: 06-19-2023 End: 06-19-2023 [...] Date Procedure Procedure Detail Performing Clinician Start: 11-19-2024 Urnls dip stick/tabl et rgnt non-auto w/o micrscp Tamara URIOSTEGUI Work Phone: Start: 10-16-2024 Urnls dip stick/tabl et rgnt non-auto w/o micrscp Tamara URIOSTEGUI Work Phone: Start: 09-04-2024 ALL CBC WITH AUTO DIFF Nakul Clement DO Work Phone: Start: 09-02-2024 TB DRUG SCREEN RAPI D (URINE) Nakul Clement DO Work Phone: Start: 08-28-2024 Urnls dip stick/tabl et rgnt non-auto w/o micrscp Nakul Clement DO Work Phone: Start: 08-21-2024 Urnls dip stick/tabl et rgnt non-auto w/o micrscp Nakul Clement DO Work Phone: Start: 08-13-2024 Urnls dip stick/tabl et rgnt non-auto w/o micrscp Nakul Clement DO Work Phone: Start: 08-13-2024 ALL MISCELLANEOUS TEST Nakul Clement DO Work Phone: Start: 07-30-2024 Urnls dip stick/tabl et rgnt non-auto w/o micrscp Tamara URIOSTEGUI Work Phone: Start: 07-16-2024 Urnls dip stick/tabl et rgnt non-auto w/o micrscp Tamara URIOSTEGUI Work Phone: Start: 07-01-2024 Urnls dip stick/tabl et rgnt non-auto w/o micrscp Tamara URIOSTEGUI Work Phone: Start: 06-30-2024 US OB INCOMPLETE ANATOMY Nakul Clement DO Work Phone: Start: 06-17-2024 Urnls dip stick/tabl et rgnt non-auto w/o micrscp Nakul Clement DO Work Phone: Start: 05-31-2024 ALL CBC WITH AUTO DIFF Nakul Clement DO Work Phone: Start: 05-31-2024 GLUCOSE 1 HOUR Nakul Fa zio DO Work Phone: Start: 05-20-2024 [...] Treatment Date Care Activity Detail Author Start: 11-23-2025 End: 11-23-2025 Patient encounter procedure 11/23/2025 3:00 PM EDT Procedure Visit [facility] [address] [place] [address] Tamara Gould PA [address] [place] [address] [facility] Start: 02-19-2025 End: 02-19-2025 Patient encounter procedure 02/19/2025 3:30 PM EDT Office Visit [facility] [address] [place] [phone] Tamara Gould, PA [address] [place], [place] [id number] [facility] Start: 11-19-2024 End: 11-19-2024 Patient encounter procedure 11/19/2024 10:30 AM EDT Office Visit [facility] [address] [place] [place] [phone] Tamara Gould, PA [address] [place], [place] [id number] Arrived [facility] Comment on above: Arrived Start: 10-22-2024 End: 10-22-2024 Patient encounter procedure 10/22/2024 8:30 AM EDT Routine [facility] [address] [place] [place] [phone] Anabel Cooper, AURIST [address] [place] [phone] Arrived [facility] Comment on above: Arrived Start: 08-28-2024 End: 08-28-2024 Patient encounter procedure [facility] Comment on above: Arrived Start: 08-21-2024 End: 08-21-2024 Patient encounter procedure 08/21/2024 11:20 AM EDT Routine [facility] [address] [place] [phone] Nakul Vaughan DO [address] [place], [place] [id number] Arrived [facility] Comment on above: Arrived Start: 08-20-2024 End: 08-20-2024 Patient encounter procedure 08/20/2024 10:50 AM EDT Routine [facility] [address] [place] [phone] Tamara Gould PA [address] [place], [place] [id number] [facility] Start: 08-13-2024 End: 08-13-2024 Patient encounter procedure 08/13/2024 2:40 PM EDT Routine [facility] [address] [place] [address] Nakul Vaughan DO [address] [place], [place] [id number] Arrived [facility] Comment on above: [...] AM EDT Routine [facility] [address] [place] [address] Tamara Gould PA [address] [place] [address] [facility] Start: 07-16-2024 End: 07-16-2024 Professional / ancillary services management 07/16/2024 10:30 AM EDT Ancillary Procedure [facility] [address] [facility] [place] [place] [address] [facility] Start: 07-01-2024 End: 07-01-2025 [...] EST Ancillary Procedure [facility] [address] [place] [address] [facility] Start: 05-20-2024 End: 05-20-2025 CBC panel - Blood by Automated count CBC Lab Routine Diabetes mellitus screening Expected: 05/20/2024 (Approximate), Expires: 05/20/2025 [facility] Work Phone: Comment on above: Expected: 05/20/2024 (Approximate), Expires: 05/20/2025 Start: 05-20-2024 End: 05-20-2025 Measurement of glucose 1 hour after glucose challenge for glucose tolerance test Glucose tolerance, 1 hour Lab Routine Diabetes mellitus screening Expected: 05/20/2024 (Approximate), Expires: 05/20/2025 [facility] Comment on above: Expected: 05/20/2024 (Approximate), Expires: 05/20/2025 Start: 05-20-2024 End: 05-20-2025 US for US OB 14+ weeks anatomy scan Imaging Routine Screening, , for anatomic survey Expected: 05/20/2024, Expires: 05/20/2025 [facility] Comment on above: Expected: 05/20/2024 [...] PM EST Routine [facility] [address] [facility] [place] [address] Tamara Gould PA [address] [place], [place] [id number] [facility] Start: 03-26-2024 End: 03-26-2024 Professional / ancillary services management 03/26/2024 3:00 PM EST Ancillary Procedure [facility] [address] [place] [address] [facility] Start: 03-06-2024 End: 03-06-2024 Professional / ancillary services management 03/06/2024 12:30 PM EDT Ancillary Procedure [facility] [address] [place] [address] [facility] Start: 03-03-2024 End: [...] gestational age Expected: 01/31/2024 (Approximate), Expires: 01/30/2025 [facility] Comment on above: Expected: 01/31/2024 (Approximate), Expires: 01/30/2025 Start: 01-31-2024 End: 01-30-2025 Blood type and Indirect antibody screen panel - Blood Type and screen Lab Routine Missed menses , unspecified gestational age Expected: 01/31/2024 (Approximate), Expires: 01/30/2025 [facility] Work Phone: Comment on above: Expected: 01/31/2024 (Approximate), Expires: 01/30/2025 Start: 01-31-2024 End: 01-30-2025 Drugs of abuse panel - Urine by Screen method Rapid drug screen, urine Lab Routine , unspecified gestational age Encounter for supervision of normal first in first trimester Expected: 01/31/2024 (Approximate), Expires: 01/30/2025 [facility] Comment on above: Expected: 01/31/2024 (Approximate), Expires: 01/30/2025 Start: 01-31-2024 End: 01-30-2025 US Pelvis transvaginal US OB transvaginal Imaging Routine Missed menses Expected: 01/31/2024 (Approximate), Expires: 01/30/2025 [facility] Comment on above: Expected: 01/31/2024 (Approximate), Expires: 01/30/2025 Bacteria identified in Urine by Culture Urine culture Microbiology Routine Missed menses Ordered: 01/31/2024 [facility] Comment on above: Ordered: 01/31/2024 Bacteria identified in Urine by Culture Urine culture Microbiology Routine Well woman exam with routine gynecological exam Ordered: 11/19/2024 [facility] Comment on above: Ordered: 11/19/2024 CBC W Auto Different ial panel - Blood CBC and differential Lab Routine Missed menses , unspecified gestational age Ordered: 01/31/2024 [facility] Comment on above: Ordered: 01/31/2024 CHLAMYDIA TRACHOMATI S (GENITO/STI) CHLAMYDIA TRACHOMATIS (GENITO/STI) Lab Routine Vaginal discharge during , antepartum Ordered: 03/03/2024 [facility] Comment on above: Ordered: 03/03/2024 CHLAMYDIA TRACHOMATI S (GENITO/STI) CHLAMYDIA TRACHOMATIS (GENITO/STI) Lab Routine Screen for STD (sexually transmitted disease) Ordered: 10/16/2024 [facility] Comment on above: Ordered: 10/16/2024 Cytology Cervical or vaginal smear or scraping study Pap Smear Pathology and Cytology Routine Well woman exam with routine gynecological exam Ordered: 11/19/2024 [facility] Work Phone: Comment on above: Ordered: 11/19/2024 Hemoglobin A1c/Hemoglobin.total in Blood Hemoglobin A1c Lab Routine Missed menses , unspecified gestational age Ordered: 01/31/2024 [facility] Comment on above: Ordered: 01/31/2024 Hepatitis B virus surface Ag [Presence] in Serum or Plasma by Immunoassay Hepatitis B surface antigen Lab Routine Missed menses , unspecified gestational age Ordered: 01/31/2024 [facility] Comment on above: Ordered: 01/31/2024 Hepatitis C virus Ab [Presence] in Serum or Plasma by Immunoassay Hepatitis C antibody Lab Routine Missed menses , unspecified gestational age Ordered: 01/31/2024 [facility] Comment on above: Ordered: 01/31/2024 HIV-1/HIV-2 antigen/antibody combination immunoassay HIV-1 and HIV-2 antibodies Lab Routine Missed menses , unspecified gestational age Ordered: 01/31/2024 [facility] Comment on above: Ordered: 01/31/2024 Human papilloma viru s DNA [Presence] in Unspecified specimen by Probe with amplification HPV DNA probe, amplified Microbiology Routine Well woman exam with routine gynecological exam Ordered: 11/19/2024 [facility] Comment on above: Ordered: 11/19/2024 Neisseria gonorrhoea e DNA [Presence] in Unspecified specimen by AYE with probe detection Neisseria gonorrhea DNA probe, direct Lab Routine Vaginal discharge during , antepartum Ordered: 03/03/2024 [facility] Comment on above: Ordered: 03/03/2024 Neisseria gonorrhoea e DNA [Presence] in Unspecified specimen by AYE with probe detection Neisseria gonorrhea DNA probe, direct Lab Routine Screen for STD (sexually transmitted disease) Ordered: 10/16/2024 [facility] Comment on above: Ordered: 10/16/2024 Reagin Ab [Presence] in Serum by RPR RPR Lab Routine Missed menses , unspecified gestational age Ordered: 01/31/2024 [facility] Comment on above: Ordered: 01/31/2024 Rubella antibody, IgG Rubella an tibody, IgG Lab Routine Missed menses , unspecified gestational age Ordered: 01/31/2024 [facility] Comment on above: Ordered: 01/31/2024 SURESWAB(R) ADVANCED VAGINITIS PLUS, TMA SURESWAB(R) ADVANCED VAGINITIS PLUS, TMA Pathology and Cytology Routine Vaginal discharge during , antepartum Ordered: 03/03/2024 [facility] [employer] Work Phone: Comment on above: Ordered: 03/03/2024 SURESWAB(R) ADVANCED VAGINITIS PLUS, TMA SURESWAB(R) ADVANCED VAGINITIS PLUS, TMA Pathology and Cytology Routine Screen for STD (sexually transmitted disease) Ordered: 10/16/2024 [facility] [employer] Work Phone: Comment on above: Ordered: 10/16/2024 Payers Date Payer Category Payer Unknown [id number] 2023 Other GENERIC OTHER Mi mber [id number] 1994 Unknown [id number] 1994 Unknown [id number] 1994 Unknown [id number] 1994 Unknown [id number] 1994 Unknown [id number] 1994 Unknown [id number] 1994 Unknown [id number] Unknown [id number] Unknown Social History Date Type Detail Facility Start: 12-14-2020 End: 11-15-2023 Tobacco smoking status Never smoked tobacco (finding) [facility] Comment on above: patient denies Tobacco smoking status Never [facility] Comment on above: patient denies Sex Assigned At Female [facility] Tobacco smoking stat [facility] Tobacco smoking consumption unknown [facility] Start: 1995 Sex Assigned At Female [facility] Start: 01-09-2023 Gender identity Identifies as female gender (finding) [facility] Start: 01-09-2023 Sexual orientation Heterosexual (fin ding) [facility] Start: 12-18-2023 [facility] Go[facility] Date Patient Goal Desired Activity /State Personal health goal Functional Status Date Assessment Result Facility 03-15-2024 Functional Status N/A [facility] 11-15-2023 Functional Status N/A [facility] 07-23-2023 Functional Status N/A [facility] Clinical Notes 07-29-2021 to 11-19-2024 MOODY Gilman - 11/19/2024 10:30 AM MOODY Wells - 10/16/2024 3:00 PM Michael Elizalde LPN - 08/28/2024 10:00 AM Michael Elizalde LPN - 08/21/2024 11:20 AM EDT Note Date & Type Note Facility 11-19-2024 History of Present illness Narrative Reason for Appointment: Patient ID: Racquel Yadav is a 29 y.o. female who presents for Well Women Visit and Weight Management Patient presents today for Annual Exam. MEDICATIONS Current Outpatient Medications Medication Instructions cephalexin (KEFLEX) 500 mg, Oral, 2 times daily phentermine (ADIPEX-P) 37.5 mg, Oral, Daily before breakfast Premarin 1 g, Vaginal, Daily, Insert 1/2 applicator at bedtime nightly for 2 weeks then twice a week thereafter ALLERGIES No Known Allergies PROBLEMS Active Ambulatory Problems Diagnosis Date Noted No Active Ambulatory Problems Resolved Ambulatory Problems Diagnosis Date Noted No Resolved Ambulatory Problems Past Medical History: Diagnosis Date Currently ([facility]) H/O LEEP 2021 History of loop electrosurgical excision procedure (LEEP) affecting care of mother, antepartum ([facility]) Irregular periods/menstrual cycles Pap smear for cervical cancer screening 2021 PCOS (polycystic ovarian syndrome) Swelling of lower extremity during , unspecified trimester ([facility]) HISTORY PAST MEDICAL HISTORY SOCIAL HISTORY Past Medical History: Diagnosis Date Currently ([facility]) H/O LEEP 2021 abnormal cells History of loop electrosurgical excision procedure (LEEP) affecting care of mother, antepartum ([facility]) Irregular periods/menstrual cycles Pap smear for cervical cancer screening 2021 Dr. Moran PCOS (polycystic ovarian syndrome) Swelling of lower extremity during , unspecified trimester ([facility]) Social History Tobacco Use Smoking status: Not [...] Objective: Physical Exam Constitutional: Appearance: Normal appearance. Genitourinary: Right Adnexa: not tender and no mass present. Left Adnexa: not tender and no mass present. No cervical discharge. Breasts: Breasts are soft. Right: Normal. Left: Normal. HENT: Head: Normocephalic. Nose: Nose normal. Mouth/Throat: Mouth: Mucous membranes are moist. Cardiovascular: Rate and Rhythm: Normal rate. Pulmonary: Effort: Pulmonary effort is normal. Abdominal: General: Bowel sounds are normal. Palpations: Abdomen is soft. Musculoskeletal: General: Normal range of motion. Cervical back: Normal range of motion. Neurological: General: No focal deficit present. Mental Status: She is alert. Skin: General: Skin is warm and dry. Psychiatric: Mood and Affect: Mood normal. Vitals and nursing note reviewed. Exam conducted with a steel erector present. Vitals: Estimated body mass index is 31.33 kg/m as calculated from the following: Height as of this encounter: 5' 5 . Weight as of this encounter: 188 lb 4 oz. BP: 102/66 Patient's last menstrual period was 11/04/2024. ASSESSMENT & PLAN ICD-10-CM 1. Encounter for weight management Z76.89 phentermine (Adipex-P) 37.5 MG tablet DISCONTINUED: phentermine (Adipex-P) 37.5 MG tablet 2. Well woman exam with routine gynecological exam Z01.419 Pap Smear HPV DNA probe, amplified Urine culture POCT urinalysis dipstick manually resulted cephalexin (Keflex) 500 MG capsule Estrogens Conjugated (Premarin) 0.625 MG/GM cream Annual Exam: Patient presents today for an annual exam. Patient states she is doing well and has no complaints. Pap was obtained without difficulty. Orders Placed This Encounter Procedures HPV DNA probe, amplified Urine culture POCT urinalysis dipstick manually resulted Follow Up: Patient is to return in one year for annual unless needed otherwise. Documented by MOODY Gilman on behalf of: MOODY Gilman documented in this encounter [facility] 10-16-2024 History of Present illness Narrative Reason for Appointment: Patient ID: Racquel Yadav is a 29 y.o. female who presents for Care (Pt present today for a 6 week post visit. Pt delivered on 09/02/2024 vaginally.) Patient presents today for Post Follow Up appointment. MEDICATIONS Current Outpatient Medications Medication Instructions ondansetron ODT (ZOFRAN-ODT) 4 mg, Oral, Every 8 hours PRN ALLERGIES No Known Allergies PROBLEMS Active Ambulatory Problems Diagnosis Date Noted No Active Ambulatory Problems Resolved Ambulatory Problems Diagnosis Date Noted No Resolved Ambulatory Problems Past Medical History: Diagnosis Date Currently ([facility]) H/O LEEP 2021 History of loop electrosurgical excision procedure (LEEP) affecting care of mother, antepartum ([facility]) Irregular periods/menstrual cycles Pap smear for cervical cancer screening 2021 PCOS (polycystic ovarian syndrome) Swelling of lower extremity during , unspecified trimester ([facility]) HISTORY PAST MEDICAL HISTORY SOCIAL HISTORY Past Medical History: Diagnosis Date Currently ([facility]) H/O LEEP 2021 abnormal cells History of loop electrosurgical excision procedure (LEEP) affecting care of mother, antepartum ([facility]) Irregular periods/menstrual cycles Pap smear for cervical cancer screening 2021 Dr. Moran PCOS (polycystic ovarian syndrome) Swelling of lower extremity during , unspecified trimester ([facility]) Social History Tobacco Use Smoking status: Not [...] reviewed. Vitals: Estimated body mass index is 36.28 kg/m as calculated from the following: Height as of 12/20/23: 5' 5 . Weight as of 08/21/24: 218 lb. BP: Patient's last menstrual period was 12/04/2023. ASSESSMENT & PLAN ICD-10-CM 1. 6 weeks follow-up ([facility]) Z39.2 2. Spontaneous vaginal delivery ([facility]) O80 3. Screen for STD (sexually transmitted disease) Z11.3 SURESWAB(R) ADVANCED VAGINITIS PLUS, TMA CHLAMYDIA TRACHOMATIS (GENITO/STI) Neisseria gonorrhea DNA probe, direct 4. Pelvic pain in female R10.2 POCT urinalysis dipstick manually resulted Post Follow Up: Patient is doing well. Patient presents today for 6 week visit. Patient is s/p Vaginal delivery. Patient states depression but denies suicidal and homicidal ideations. All options were discussed with the patient regarding control and patient desires none at this time. Follow Up: Patient is to return for annual unless needed otherwise. Documented by MOODY Gilman on behalf of: MOODY Gilman documented in this encounter [facility] 08-28-2024 History of Present illness Narrative Reason for Appointment: Patient ID: Racquel Yadav is a 28 y.o. female who presents for Routine Visit Patient presents today for Return OB appointment. MEDICATIONS Current Outpatient Medications Medication Instructions ondansetron ODT (ZOFRAN-ODT) 4 mg, Oral, Every 8 hours PRN ALLERGIES No Known [...] nursing note reviewed. Exam conducted with a steel erector present. Vitals: Estimated body mass index is 36.28 kg/m as calculated from the following: Height as of 12/20/23: 5' 5 . Weight as of 08/21/24: 218 lb. BP: Patient's last menstrual period was 12/04/2023. ASSESSMENT & PLAN ICD-10-CM 1. Third trimester Z34.93 POCT urinalysis dipstick manually resulted 2. 38 weeks gestation of Z3A.38 Patient presents today for a routine obstetrics appointment. Patient is currently 38w2d with a Estimated Date of Delivery: 09/09/24. Patient to return to clinic in 1 week for routine OB appointment. Patient signed IOL paperwork and is scheduled for 09/02/24 @ 0800. Provider called [facility] and ensured patient was placed on the books for induction of labor. Documented by Yuliet Elizalde LPN on behalf of: Nakul Vaughan DO documented in this encounter [facility] 08-21-2024 History of Present illness Narrative Reason for [...] SYSTEMS Review of Systems: Review of Systems Genitourinary: Positive for vaginal pain. All other systems reviewed and are negative. OBJECTIVE Objective: OBGyn Exam Vitals: Estimated body mass index is 36.28 kg/m as calculated from the following: Height as of 12/20/23: 5' 5 . Weight as of this encounter: 218 lb. BP: 108/74 Patient's last menstrual period was 12/04/2023. ASSESSMENT & PLAN ICD-10-CM 1. Third trimester Z34.93 POCT urinalysis dipstick manually resulted 2. 37 weeks gestation of Z3A.37 Patient presents today for a routine obstetrics appointment. Patient is currently 37w2d with a Estimated Date of Delivery: 09/09/24. Patient desires IOL on October 02 at 39 weeks gestation. Patient to return to clinic in 1 week to sign consents for IOL and pelvic exam to see if patient needs to go in the night prior. Documented by Yuliet Elizalde LPN on behalf of: Nakul Vaughan DO documented in this encounter [facility] 08-13-2024 History of Present illness Narrative Reason [...] nursing note reviewed. Exam conducted with a steel erector present. Vitals: Estimated body mass index is [...] Nakul Vaughan DO documented in this encounter [facility] 07-30-2024 History of Present illness Narrative Reason for Appointment: Patient ID: Racquel Agache is a 28 y.o. female who presents [...] Documented by MOODY Gilman on behalf of: Nakul Vaughan DO documented in this encounter [facility] 07-16-2024 History of Present illness Narrative Reason [...] of: MOODY Gilman documented in this encounter [facility] 07-01-2024 History of Present illness Narrative Reason [...] of: MOODY Gilman documented in this encounter [facility] 06-17-2024 History of Present illness Narrative Reason [...] nursing note reviewed. Exam conducted with a steel erector present. Vitals: Estimated body mass index is [...] Nakul Vaughan DO documented in this encounter [facility] 05-20-2024 History of Present illness Narrative Reason [...] nursing note reviewed. Exam conducted with a steel erector present. Vitals: Estimated body mass index is [...] Nakul Vaughan DO documented in this encounter [facility] 04-21-2024 History of Present illness Narrative Reason [...] of: MOODY Gilman documented in this encounter [facility] 03-19-2024 History of Present illness Narrative Reason [...] nursing note reviewed. Exam conducted with a steel erector present. Vitals: Estimated body mass index is [...] Nakul Vaughan DO documented in this encounter [facility] 03-17-2024 Note Microbiology PROCEDURE: Cervical Culture [R1] [...] This test was performed at: [facility], [address] [place] [address], [id number] , , [facility] Comment on above: Performed By: #### 1 [id number] #### [facility] [address] [place] [address] 03-15-2024 Evaluation + Plan note Extrac hernesto from: Title:ED Note Author:elsa CALDWELL Zackwesley Norris Date :03/15/24 Vaginal bleeding in pregnanc [...] is discharged home to follow-up with 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 Additional diagnosis: Threatened [facility] 11-09-2024 Hospital Discharge instructions Follow Up Care 03/15/2024 04:00:46 With:Nakul VAUGHAN Address: [address] , [place] [address]- Business (1) When:03/18/2024 08:03:16 With:Dave Red Address: [address] [place] [phone]- Business (1) When:Within 3 Day([address]) [facility] 10-28-2024 History of Present illness Narrative* [...] nursing note reviewed. Exam conducted with a steel erector present. Vitals: Estimated body mass index is [...] or undercooked meat, and stay away from [facility]. Patient has been consulted regarding any [...] of: Nakul Vaughan DO [id number] History of Present illness Narrative* Jasmin Grimaldo [...] or undercooked meat, and stay away from [facility]. Patient has also been advised to [...] by: Jasmin Grimaldo LPN documented in this encounter[facility] [id number] Hospital Discharge instructions Patient Education 11/15/2023 13:24:19 [...] soapy water. ?Keep raw meats separate from wjtkk-rt-kgf foods, such as fruits and vegetables. ?turkey egg gatherer, meat, poultry, and eggs to the recommended [...] include 1 slice of bread, 1 cup dhwai-wm-rqi cereal, 3 cups popcorn, or cup cooked [...] provider. Document Revised: 12/20/2021 Document Reviewed: 12/20/2021 [employer] Patient Education 2022 [employer]. 11/15/2023 13:24:01 Exercising to Lose Weight Exercising [...] health care provider or diet and nutrition teacher (dietitian). This may include: ?Eating fewer [...] provider. Document Revised: 06/19/2021 Document Reviewed: 06/19/2021 VI[employer] Patient Education 2022 [employer]. 11/15/2023 13:23:59 BMI for Adults BMI for [...] numbers. This can be done either in [place] ([place] or metric measurements. Note that charts and online BMI calculators are available to help you find your BMI quickly and easily without having to do these calculations yourself. To calculate your BMI in [place] ([place] measurements: 1.Measure your weight in pounds [...] Association: www.heart.org National Heart, Lung, and Blood Check: www.nhlbi.nih.gov Summary Body mass index (BMI) is a number that is calculated from a person's weight and height. BMI may help estimate how much of a person's weight is composed of fat. BMI can help identify thosewho may be at higher risk for certain medical problems. BMI can be measured using [place] measurements or metric measurements. BMI charts are used to identify whether you are underweight, normal weight, overweight, or obese. This information is not intended to replace advice given to you by your health care provider. Make sure you discuss any questions you have with your health care provider. Document Revised: 01/14/2020 Document Reviewed: 11/21/2019 VIAP Patient Education 2022 [employer]. 11/15/2023 13:23:56 How to Use Cold Therapy, Cvur-dv-Kmzk How to Use Cold Therapy Cold therapy, [...] provider. Document Revised: 03/09/2021 Document Reviewed: 03/09/2021 VIAP Patient Education 2022 [employer] 11/15/2023 13:23:47 Hand Pain Hand Pain [...] discomfort: Managing pain, stiffness, and swelling Take nlel-qlb-kgbhdug and prescription medicines only as told by [...] provider. Document Revised: 08/10/2022 Document Reviewed: 08/11/2021 Elsevier Patient Education 2022 [employer]. Follow Up Care 11/15/2023 10:03:53 With:Teofilo BRANDT, TREVOR Jimenez Address: [address] [place] [phone]- When: Unknown [facility] 07-11-2024 NotePatient Education Nutrition [...] water. ? Keep raw meats separate from oszln-dy-gcw foods, such as fruits and vegetables. ? turkey egg gatherer, meat, poultry, and eggs to the recommended [...] include 1 slice of bread, 1 cup rmskw-mb-pmj cereal, 3 cups popcorn, or ? cup [...] for about 5 teas (more content not included)...[facility] 07-23-2023 Evaluation + Plan note Diagnostic Tests Pending * Urine Culture 07/23/23 [facility]03-18-2024 Hospital Discharge instructions Patient Education 07/23/2023 [...] to keep your urine pale yellow. ?Take kctt-asf-omhcqsx or prescription medicines. ?Eat foods that are high in fiber, such as beans, whole grains, and fresh fruits and vegetables. ?Limit foods that are high in fat and processed sugars, such as fried or sweet foods. General instructions Take ctoa-kuh-gjntvdj and prescription medicines only as told by [...] the muscles that help control urination. Take exgz-wmd-yfgqdos and prescription medicines only as told by your health care provider. Contact a health care provider if your symptoms do not improve or get worse. This information is not intended to replace advice given to you by your health care provider. Make sure you discuss any questions you have with your health care provider. Document Revised: 11/26/2020 Document Reviewed: 11/26/2020 VIAP Patient Education 2022 [employer]. 07/23/2023 10:36:54 BMI for Adults BMI for [...] numbers. This can be done either in [place] ([place] or metric measurements. Note that charts and online BMI calculators are available to help you find your BMI quickly and easily without having to do these calculations yourself. To calculate your BMI in [place] ([place] measurements: 1.Measure your weight in pounds [...] Association: www.heart.org National Heart, Lung, and Blood Check: www.nhlbi.nih.gov Summary Body mass index (BMI) is a number that is calculated from a person's weight and height. BMI may help estimate how much of a person's weight is composed of fat. BMI can help identify thosewho may be at higher risk for certain medical problems. BMI can be measured using Trin[place] measurements or metric measurements. BMI charts are used to identify whether you are underweight, normal weight, overweight, or obese. This information is not intended to replace advice given to you by your health care provider. Make sure you discuss any questions you have with your health care provider. Document Revised: 01/14/2020 Document Reviewed: 11/21/2019 VIAP Patient Education 2022 [employer]. Follow Up Care 07/23/2023 09:05:39 With:Teofilo BRANDT, TREVOR Jimenez Address: [address] [place] [phone]- When: Unknown [facility] 02-13-2024 History of Present illness Narrative* Nakul Vaughan DO - 06/19/2023 8:10 AM EST Reason for Appointment: Patient ID: Racquel Yadav is a 27 y.o. female who presents for TELEHEALTH FOLLOW UP and Infertility Patient presents today via telephone call for a telehealth appointment. Patients Phone #: [phone] (mobile) Current Medications: has a current medication [...] of: Nakul Vaughan DO documented in this encounterCox [id number] Hospital Discharge instructions Patient Education 07/29/2021 17:20:52 SIGN ERECTOR AND REPAIRER - Post D&C, Hysteroscopy, LEEP or Essure/Laparoscopy [...] Up Care 07/12/2021 14:08:06 With:Mark Moffett Address: [address] [place], [place] [id number] [facility] (1) When:2 weeks Comments:Call for any problems. [facility] No data available for this section [facility]* Diagnosis Female infertility Female infertility of unspecified origin documented in this encounter [facility]* Diagnosis Abdominal cramping affecting documented in this encounter [facility]* Diagnosis First trimester state, incidental [...] episode of care documented in this encounter [facility]* Diagnosis Missed menses , unspecified gestational age Encounter for supervision of normal first in first trimester documented in this encounter [facility]* Diagnosis 24 weeks gestation of Second trimester state, incidental Diabetes mellitus screening Screening for diabetes mellitus Screening, , for anatomic survey Encounter for anatomic survey documented in this encounter [facility]* Diagnosis Third trimester state, incidental 28 weeks gestation of documented in this encounter [facility]* Diagnosis size inconsistent with dates- Primary 30 weeks gestation of Third trimester state, incidental documented in this encounter [facility]* Diagnosis Third trimester state, incidental 32 weeks gestation of documented in this encounter [facility]* Diagnosis Third trimester state, incidental 34 weeks gestation of documented in this encounter [facility]* Diagnosis 36 weeks gestation of Third trimester state, incidental documented in this encounter [facility]* Diagnosis Third trimester state, incidental 37 weeks gestation of documented in this encounter [facility]* Diagnosis Third trimester state, incidental 38 weeks gestation of documented in this encounter [facility]* Diagnosis 6 weeks follow-up ([facility]) Spontaneous vaginal delivery ([facility]) Normal delivery Screen for STD (sexually transmitted disease) Screening examination for venereal disease Pelvic pain in female Unspecified symptom associated with female genital organs documented in this encounter [facility]* Diagnosis Encounter for weight management Well woman exam with routine gynecological exam Routine gynecological examination documented in this encounter [facility] Dis[facility] instructions No data available for this section [facility] No data available for this section [facility] Summary Purpose Family History [...] section and content) DATE CREATED AUTHOR 10/31/2017 [facility] DATE CREATED AUTHOR AUTHOR'S ORGANIZ ATION 06/10/2020 [employer] DATE CREATED AUTHOR AUTHOR'S ORGANIZ ATION 03/17/2024 [facility] DATE CREATED AUTHOR AUTHOR'S ORGANIZ ATION 03/20/2024 [facility] Reason for Visit (unrecogniz ed section and content) Reason Comments TELEHEALTH FOLLOW UP Infertility Reason Comments ER Follow-up Reason Comments Routine Visit Reason Comments Amenorrhea Reason Comments Care Pt present today for a 6 week post visit. Pt delivered on 09/02/2024 vaginally. Reason Comments Well Women Visit Weight Management Patient Care team informatio n (unrecognized section and content) Personnel Name: Dave Red MD Address: Address: [address] [place] [address] Personnel Name: Dave Red MD Address: Address: [address] [place] [address] Personnel Name: Dave Red MD Address: Address: [address] [place] [address] Personnel Name: Dave Red MD Address: Address: [address] [place] [address] Personnel Name: Dave Red MD Address: Address: [address] [place] [address] Personnel Name: Dave Red MD Address: Address: [address] [place] [address] FOR RECORDS PERTAINING TO PATIENTS WHO ARE [...] BE BASED ON THE PRIMARY CLINICAL RECORDS. [facility] [employer] [facility]. provides no warranty or guarantee of the accuracy or completeness of information in this document.
[2024-11-21 15:09] LABS: Age Gdln ACOG Testing Note (.); IGP, Aptima HPV, rfx 16/18,45 Note (.)
== END 2024-11-19 15:18 | disposition home or self-care (01) ==
LOC: LAB 15:17
PROVIDERS: Visit Provider Physician Assistant
DX: Z01.419 Encounter for gynecological examination (general) (routine) without abnormal findings (principal)
CPT/HCPCS: 87624; 88175